=== PATIENT | female | born 1980 | race Caucasian/White ===

== ENCOUNTER 2017-05-24 14:35 | Inpatient (IN) | payer OTHER ==
[~2017-05-24] VITALS: Ht 162.6 cm; Wt 50.9 kg
[2017-05-24] MEDS ORDERED: SODIUM CHLORIDE 0.9% 1000ML 1,000 ML IV STA ×2 (15:21→17:57)
[2017-05-24] MEDS ORDERED: KETOROLAC TROMETHAMINE 30 MG/ML VIAL IV STA (15:21)
[2017-05-24] MEDS ORDERED: INSDGI SC (15:30)
[2017-05-24] MEDS ORDERED: IBUP-1050 PO (15:30)
[2017-05-24] MEDS ORDERED: ATOR10TA88 PO (15:30)
[2017-05-24] MEDS ORDERED: NVLG SQ (15:30)
[2017-05-24] MEDS ORDERED: ETON1IMP2 IM (15:30)
[2017-05-24] MEDS ORDERED: NYSS/ PO (15:32)
[2017-05-24] MEDS ORDERED: ETOD400T PO (15:32)
--- NOTE | 2017-05-24 15:32 | EMERGENCY ROOM VISIT NOTE ---
History Report prepared by Jem: Jeronimo Champagne Under the Supervision of: Dr. Redd Carrizales M.D. First contact with patient: 15:09 Chief Complaint: ABDOMINAL PAIN Stated Complaint: ABD PAIN,FEVER, BLISTERS IN MOUTH Nursing Triage Summary: Abdonimal pain for about three weeks. It's getting worse. Went to [facility] in [place] yesterday and referred here. Has not been seeing a PCP regarding this issue. History of Present Illness The patient is a 36 year old female who presents to the Emergency Room with complaints of a worsening illness that started 3 weeks ago. She says that she has been having left-sided abdominal pain that wraps around into her back that has been worsening, in addition to fevers and chills. She says that it is hard to take a deep breath due to the pain. The patient states that she has been taking Ibuprofen "around the clock". She notes that her highest temperature has been 102, and she has not seen a doctor for her symptoms, except for going to [facility] yesterday. The patient says that she did not go to see a doctor before that because her symptoms would at times go away for 2 to 3 days at a time, and she thought it may have been an illness that was "going around". At [facility], she was told to come here to be evaluated for further testing. She was also given a medication, which she has taken last night and this morning. The patient was told to not take Ibuprofen with the medication, but her pain was so bad that she continued to take Ibuprofen, the last dose being around 5 hours ago. The patient denies any nausea, chest pain, shortness of breath, urinary symptoms, or vaginal discharge or vaginal odor. She adds that she is a type 1 diabetic, and has not been following her blood sugars as she should. Her A1C was noted to be high last time she checked. She denies any chance of . She smokes a half a pack of cigarettes per day. Source of History: patient Onset: 3 weeks ago Position: other (global - illness) Timing: worsening Associated Symptoms: + fevers, + chills, + abdominal pain (left sided - wraps into back), No chest pain, No SOB, No nausea, No urinary symptoms Note: Associated symptoms: Denies vaginal discharge or vaginal odor. Review of Systems See HPI for pertinent positives and negatives. A total of ten systems were reviewed and were otherwise negative. Past Medical & Surgical Medical Problems: (1) MRSA (methicillin resistant staph aureus) culture positive (2) Type 1 diabetes Family History Diabetes mellitus Social History Smoking Status: Current Every Day Smoker Marital Status: single Housing Status: lives with family Occupation Status: employed Current/Historical Medications Scheduled Atorvastatin (Lipitor), 10 MG PO DAILY Etodolac (Etodolac), 400 MG PO BID Etonogestrel (Nexplanon), 68 MG IM [id number] Insulin Aspart (Novolog), 8-15 UNITS SQ TID Insulin Glargine (Lantus), 20-22 UNITS SC QPM Nystatin (Nystatin Suspension), 1 DOSE PO QID Scheduled PRN Ibuprofen (Advil), 400-600 MG PO Q6H PRN for Pain Allergies Coded Allergies: No Known Allergies (Unverified , 05/24/17) Physical Exam Vital Signs Date Time Temp Pulse Resp B/P (MAP) Pulse Ox O2 Delivery O2 Flow Rate FiO2 05/24/17 20:18 Room Air 05/24/17 14:41 36.8 108 16 119/77 98 Room Air Physical Exam GENERAL: Awake, alert, well-appearing, in no distress HENT: Normocephalic, atraumatic. Oropharynx unremarkable. Dry mucous membranes. EYES: Normal conjunctiva. Sclera non-icteric. NECK: Supple. No nuchal rigidity. FROM. No JVD. RESPIRATORY: Clear to auscultation. CARDIAC: Regular rate, normal rhythm. Extremities warm and well perfused. Pulses equal. ABDOMEN: Soft, non-distended. Moderate Left flank tenderness to palpation. Mild Upper abdominal tenderness to palpation. No peritoneal signs. No rebound or guarding. No masses. RECTAL: Deferred. MUSCULOSKELETAL: Chest examination reveals no tenderness. The back is symmetrical on inspection without obvious abnormality. There is no CVA tenderness to palpation. No joint edema. LOWER EXTREMITIES: Calves are equal size bilaterally and non-tender. No edema. No discoloration. NEURO: Normal sensorium. No sensory or motor deficits noted. SKIN: No rash or jaundice noted. Medical Decision & Procedures ER Provider Diagnostic Interpretation: CT: Radiology results as stated below per my review and radiologist interpretation CT SCAN OF THE ABDOMEN AND PELVIS WITH IV CONTRAST CLINICAL HISTORY: Epigastric abdominal pain. Left flank pain. Fever. Reported history of poorly controlled diabetes. COMPARISON STUDY: No priors. TECHNIQUE: Following the IV administration of 92 cc of Optiray 320, CT scan of the abdomen and pelvis is performed from the lung bases to the proximal femora. Images are reviewed in the axial, sagittal, and coronal planes. IV contrast was administered without complication. Automated dose control exposure was utilized. A dose lowering technique was utilized adhering to the principles of ALARA. CT DOSE: 251.05 mGy.cm FINDINGS: Lung bases: The heart is normal in size and without pericardial effusion. There are trace pleural effusions, left larger than right with bibasilar atelectasis. Liver: The contrast-enhanced liver is normal in size, contour, and attenuation. There is no intrahepatic biliary ductal dilatation. The hepatic veins and portal veins are patent. Gallbladder: Unremarkable. Spleen: Normal in size and attenuation. Pancreas: Unremarkable. Adrenal glands: Unremarkable. Kidneys and retroperitoneum: The contrast enhanced kidneys are normal in size and without hydronephrosis. The right kidney enhances homogeneously. There is heterogeneously diminished perfusion identified in the lower pole of left kidney. The remainder of the left kidney enhances homogeneously. There is extensive phlegmonous change identified in the left retroperitoneal space around the lower pole of the kidney, and between the left psoas muscle, the spleen, and the splenic flexure of the colon. There are small foci of indeterminant gas in the retroperitoneal space which may be extraluminal. There is a small crescentic fluid collection seen posterior to the lower pole the left kidney on image #124 which measures approximately 2.5 x 1 x 2.5 cm. The appearance is concerning for a small abscess. It is unclear if this originates from the splenic flexure of the colon or the left kidney. There is no convincing evidence of intramuscular abscess in the psoas. Abdominal vasculature: The abdominal aorta is normal in course and caliber. Bowel: There is moderate colonic fecal retention. No bowel obstruction is seen. As noted above, there is significant inflammatory change in the left retroperitoneal space which involves the splenic flecture. The splenic flexure appears thick-walled. See above for detailed discussion. The appendix is well-visualized and normal. Peritoneum: There is mild diffuse mesenteric edema. No intraperitoneal free air is seen in there is no abdominal ascites. Lymphadenopathy: None. Pelvic viscera: The bladder, uterus, and adnexa are normal as visualized. Skeletal structures: No lytic or blastic lesions are seen. IMPRESSION: 1. There is a large inflammatory process with significant inflammation/phlegmon identified in the left retroperitoneal space as detailed above which involves predominantly the lower pole of the left the kidney and the splenic flexure of the colon. The origin/etiology of this is unclear, and primary renal infection versus a colonic process such as perforated diverticulitis are the top differential considerations. Clinical correlation will be required and surgical consultation is advised. 2. There are foci of gas within the left retroperitoneal space which may be extraluminal. A small crescentic fluid collection is seen posterior to the lower pole of the left kidney and measures up to 2.5 cm. This likely represents a small abscess. 3. There is nonspecific mesenteric edema. No intraperitoneal free air is identified and there is no intraperitoneal fluid collection seen. 4. Small pleural effusions, left larger than right with associated atelectasis. Findings were discussed with Dr. Carrizales in the emergency department at the time of interpretation. Electronically signed by: Margarito Jacobs M.D. 05/24/2017 5:17 PM Dictated Date/Time: 05/24/2017 4:59 PM Laboratory Results 05/24/17 15:40 Red Blood Count 4.21, Mean Corpuscular Volume 82.9, Mean Corpuscular Hemoglobin 28.0, Mean Corpuscular Hemoglobin Concent 33.8, Mean Platelet Volume 9.6, Neutrophils (%) (Auto) 63.4, Lymphocytes (%) (Auto) 27.5, Monocytes (%) (Auto) 3.8, Eosinophils (%) (Auto) 4.7, Basophils (%) (Auto) 0.2, Neutrophils # (Auto) 6.15, Lymphocytes # (Auto) 2.67, Monocytes # (Auto) 0.37, Eosinophils # (Auto) 0.46, Basophils # (Auto) 0.02 05/24/17 15:40 Test 05/24/17 15:40 05/24/17 17:46 05/24/17 19:22 White Blood Count 9.71 K/uL (4.8-10.8) Red Blood Count 4.21 M/uL (4.2-5.4) Hemoglobin 11.8 g/dL (12.0-16.0) Hematocrit 34.9 % (37-47) Mean Corpuscular Volume 82.9 fL (80-100) Mean Corpuscular Hemoglobin 28.0 pg (25-34) Mean Corpuscular Hemoglobin Concent 33.8 g/dl (32-36) Platelet Count 672 K/uL (130-400) Mean Platelet Volume 9.6 fL (7.4-10.4) Neutrophils (%) (Auto) 63.4 % Lymphocytes (%) (Auto) 27.5 % Monocytes (%) (Auto) 3.8 % Eosinophils (%) (Auto) 4.7 % Basophils (%) (Auto) 0.2 % Neutrophils # (Auto) 6.15 K/uL (1.4-6.5) Lymphocytes # (Auto) 2.67 K/uL (1.2-3.4) Monocytes # (Auto) 0.37 K/uL (0.11-0.59) Eosinophils # (Auto) 0.46 K/uL (0-0.5) Basophils # (Auto) 0.02 K/uL (0-0.2) RDW Standard Deviation 44.9 fL (36.4-46.3) RDW Coefficient of Variation 14.8 % (11.5-14.5) Immature Granulocyte % (Auto) 0.4 % Immature Granulocyte # (Auto) 0.04 K/uL (0.00-0.02) Urine Color YELLOW Urine Appearance CLEAR (CLEAR) Urine pH 6.5 (4.5-7.5) Urine Specific [place] 1.038 (1.000-1.030) Urine Protein NEG (NEG) Urine Glucose (UA) 3+ (NEG) Urine Ketones NEG (NEG) Urine Occult Blood TRACE (NEG) Urine Nitrite NEG (NEG) Urine Bilirubin NEG (NEG) Urine Urobilinogen NEG (NEG) Urine Leukocyte Esterase NEG (NEG) Urine WBC (Auto) 5-10 /hpf (0-5) Urine RBC (Auto) 0-4 /hpf (0-4) Urine Hyaline Casts (Auto) 1-5 /lpf (0-5) Urine Epithelial Cells (Auto) >30 /lpf (0-5) Urine Bacteria (Auto) NEG (NEG) Urine Test NEG (NEG) Anion Gap 7.0 mmol/L (3-11) Est Creatinine Clear Calc Drug Dose 73.4 ml/min Estimated GFR () 101.4 Estimated GFR (Non- 87.5 BUN/Creatinine Ratio 13.6 (10-20) Calcium Level 9.4 mg/dl (8.5-10.1) Total Bilirubin 0.2 mg/dl (0.2-1) Direct Bilirubin 0.1 mg/dl (0-0.2) Aspartate Amino Transf (AST/SGOT) 14 U/L (15-37) Alanine Aminotransferase (ALT/SGPT) 16 U/L (12-78) Alkaline Phosphatase 247 U/L (45-117) Total Protein 8.8 gm/dl (6.4-8.2) Albumin 2.4 gm/dl (3.4-5.0) Lipase 53 U/L (73-393) Beta-Hydroxybutyric Acid 0.86 mg/dL (0.2-2.81) Lactic Acid Level 2.0 mmol/L (0.4-2.0) Bedside Glucose 216 mg/dl (70-90) Laboratory results reviewed by me Medications Administered Medications (Trade) Dose Ordered Sig/Jimy Route Start Time Stop Time Status Last Admin Dose Admin Sodium Chloride 1,000 ml @ 999 mls/hr Q1H1M STAT IV 05/24/17 15:21 05/24/17 16:21 DC 05/24/17 15:56 999 MLS/HR Ketorolac Tromethamine (Toradol Inj) 30 mg NOW STAT IV 05/24/17 15:21 05/24/17 15:24 DC 05/24/17 15:56 30 MG Insulin Aspart (novoLOG PER UNIT) 10 units NOW ONCE SC 05/24/17 17:30 05/24/17 17:31 DC 05/24/17 17:47 10 UNITS Piperacillin Sod/ Tazobactam Sod (Zosyn Iv) 3.375 gm NOW STAT IV 05/24/17 17:15 05/24/17 17:17 DC 05/24/17 17:15 3.375 GM Vancomycin HCl 270 ml @ 125 mls/hr Q2H10M STAT IV 05/24/17 17:23 05/24/17 19:32 DC 05/24/17 17:48 125 MLS/HR Sodium Chloride 1,000 ml @ 999 mls/hr Q1H1M STAT IV 05/24/17 17:57 05/24/17 18:57 DC 05/24/17 17:57 999 MLS/HR Nicotine (Nicoderm Cq 21MG Patch) 1 patch STK-MED ONCE .ROUTE 05/24/17 19:16 05/24/17 19:17 DC 05/24/17 19:18 1 PATCH ED Course 1520: The patient was evaluated in room B8. A complete history and physical exam was performed. 152: Ordered Toradol Inj 30 mg IV, NSS 1000 ml @ 999 mls/hr IV. 1715: Ordered Zosyn IV 3.375 gm IV. 1727: Upon reexamination, the patient was resting comfortably. I discussed the test results and treatment plan with her. The patient will be evaluated for further management. 173: Ordered Novolog PER UNIT 10 units SC. 193: I discussed the patient with Dr. Le - [facility] warp picker - he will evaluate the patient for further treatment. 2100: Ordered Remove Nicoderm Patch 1 ea N/A. 0900: Ordered Nicoderm Cq 21MG Patch 1 patch TD. Medical Decision I reviewed the patient's past medical history, medications, and the nursing notes as described above. Differential diagnoses: renal stone, pyelonephritis, diverticulitis, pancreatitis, cholecystitis. Medication Reconciliation: I attest that I have personally reviewed the patient' s current medication list. No medications on list. Blood pressure screening: Patient was found to have normal blood pressure on screening and does not require follow-up. Patient is a 36-year-old woman with a past medical history of MRSA skin infections since emergency Department with worsening left flank pain that has been ongoing for the past 3 weeks with feverishness and chills per history of present illness. On exam patient appears uncomfortable but in no acute distress. She is afebrile with stable vital signs. Has dry mucous membranes and several oral ulcers. His abdominal exam is notable for left flank tenderness to palpation as well as upper abdominal tenderness to palpation. Otherwise no lower abdominal tenderness elicited. No peritoneal signs. During the patient's prolonged symptoms in the setting of left flank pain, renal stone within the differential, thus CT ordered. Labs show a WBC within normal limits. Otherwise blood glucose elevated to the 400s, however no anion gap that would make me concerned for DKA in this type I diabetic. Thus given subcu insulin for correction of IV fluid hydration with improvement in her glucose to the 200s. Alkaline phosphatase elevated to the 200s but without any priors. LFTs otherwise unremarkable. CT scan demonstrating fluid collection adjacent to the left kidney as well as splenic flexure, I discussed with radiology who feels it is highly suspicious for abscess although the source of abscess is unclear at this time with possibilities including diverticular versus renal. In this setting lactate and blood cultures ordered patient was given broad- spectrum antibiotics. Findings were discussed with the patient and the plan for admission however initially the patient was concerned because she had not made arrangements to leaf size picker her children. Thus plan was to demise the patient medically with IV antibiotics and hydration. However, in the interim, patient was able to make arrangements and agreed to stay for admission. Patient admitted to medicine for further management possible surgical and/or urological consultation. Consults Time Called: 1929 Consulting Physician: Dr. Mimi BAILEY warp picker Returned Call: [phone] I discussed the patient with Dr. Mimi BAILEY warp picker - he will evaluate the patient for further treatment. Impression Primary Impression: Intra-abdominal abscess Scribe Attestation The scribe's documentation has been prepared under my direction and personally reviewed by me in its entirety. I confirm that the note above accurately reflects all work, treatment, procedures, and medical decision making performed by me. Departure Information Dispostion Being Evaluated By Hospitalist Referrals No Doctor, Assigned (PCP) Patient Instructions [facility]
[2017-05-24] MEDS ORDERED: OPTIRAY 320 IV PRN (15:45)
[2017-05-24 16:01] LABS: BASO % 0.2 %; BASO ABS # 0.02 K/uL (0-0.2); COMPLETE YES; EOS % 4.7 %; HEMATOCRIT 34.9 % (37-47); IG% 0.4 %; LYMPH % 27.5 %; LYMPH ABS # 2.67 K/uL (1.2-3.4); MEAN CELL VOLUME 82.9 fL (80-100); MEAN CORPUSCULAR HGB CONC 33.8 g/dl (32-36); MEAN PLATELET VOLUME 9.6 fL (7.4-10.4); MONO % 3.8 %; NEUT % 63.4 %; PLATELET COUNT 672 K/uL (130-400); RED BLOOD COUNT 4.21 M/uL (4.2-5.4); WHITE BLOOD COUNT 9.71 K/uL (4.8-10.8)
[2017-05-24 16:09] LABS: URINE APPEARANCE CLEAR (CLEAR); URINE BILIRUBIN NEG (NEG); URINE COLOR YELLOW; URINE EPITHELIAL CELL AUTO >30 /lpf (0-5); URINE NITRITE NEG (NEG); URINE PH 6.5 (4.5-7.5); URINE SPECIFIC GRAVITY 1.038 (1.000-1.030); UROBILINOGEN NEG (NEG); ZZUR CULT IF INDIC CLEAN CATCH NO
[2017-05-24 16:12] LABS: MANUAL MICROSCOPIC REQUIRED? NO; REVIEW REQ? NO
[2017-05-24 16:25] LABS: BUN/CREATININE RATIO 13.6 (10-20); CALCIUM 9.4 mg/dl (8.5-10.1); CREATININE 0.86 mg/dl (0.60-1.20); POTASSIUM 4.3 mmol/L (3.5-5.1)
[2017-05-24 16:37] LABS: BETA-HYDROXYBUTYRATE 0.86 mg/dL (0.2-2.81)
[2017-05-24] MEDS ORDERED: PIPERACILLIN/TAZOBACTAM 3.375 GM/100ML D5W IV STA (17:15)
[2017-05-24] MEDS ORDERED: VANCOMYCIN INJ 2,000 MG in SODIUM CHLORIDE 0.9% 500ML 500 ML IV STA (17:15)
--- NOTE | 2017-05-24 17:18 | DIAGNOSTIC IMAGING REPORT ---
ADDENDUM ADDENDUM: In addition to the above findings the spleen is enlarged, measuring 16.7 cm in length. This is likely on a reactive basis. All additional findings are unchanged. Electronically signed by: Margarito Jacobs M.D. 05/24/2017 5:49 PM Dictated Date/Time: 05/24/2017 5:[address] SCAN OF THE ABDOMEN AND PELVIS WITH IV CONTRAST CLINICAL HISTORY: Epigastric abdominal pain. Left flank pain. Fever. Reported history of poorly controlled diabetes. COMPARISON STUDY: No priors. TECHNIQUE: Following the IV administration of 92 cc of Optiray 320, CT scan of the abdomen and pelvis is performed from the lung bases to the proximal femora. Images are reviewed in the axial, sagittal, and coronal planes. IV contrast was administered without complication. Automated dose control exposure was utilized. A dose lowering technique was utilized adhering to the principles of ALARA. CT DOSE: 251.05 mGy.cm FINDINGS: Lung bases: The heart is normal in size and without pericardial effusion. There are trace pleural effusions, left larger than right with bibasilar atelectasis. Liver: The contrast-enhanced liver is normal in size, contour, and attenuation. There is no intrahepatic biliary ductal dilatation. The hepatic veins and portal veins are patent. Gallbladder: Unremarkable. Spleen: Normal in size and attenuation. Pancreas: Unremarkable. Adrenal glands: Unremarkable. Kidneys and retroperitoneum: The contrast enhanced kidneys are normal in size and without hydronephrosis. The right kidney enhances homogeneously. There is heterogeneously diminished perfusion identified in the lower pole of left kidney. The remainder of the left kidney enhances homogeneously. There is extensive phlegmonous change identified in the left retroperitoneal space around the lower pole of the kidney, and between the left psoas muscle, the spleen, and the splenic flexure of the colon. There are small foci of indeterminant gas in the retroperitoneal space which may be extraluminal. There is a small crescentic fluid collection seen posterior to the lower pole the left kidney on image #124 which measures approximately 2.5 x 1 x 2.5 cm. The appearance is concerning for a small abscess. It is unclear if this originates from the splenic flexure of the colon or the left kidney. There is no convincing evidence of intramuscular abscess in the psoas. Abdominal vasculature: The abdominal aorta is normal in course and caliber. Bowel: There is moderate colonic fecal retention. No bowel obstruction is seen. As noted above, there is significant inflammatory change in the left retroperitoneal space which involves the splenic flecture. The splenic flexure appears thick-walled. See above for detailed discussion. The appendix is well-visualized and normal. Peritoneum: There is mild diffuse mesenteric edema. No intraperitoneal free air is seen in there is no abdominal ascites. Lymphadenopathy: None. Pelvic viscera: The bladder, uterus, and adnexa are normal as visualized. Skeletal structures: No lytic or blastic lesions are seen. IMPRESSION: 1. There is a large inflammatory process with significant inflammation/phlegmon identified in the left retroperitoneal space as detailed above which involves predominantly the lower pole of the left the kidney and the splenic flexure of the colon. The origin/etiology of this is unclear, and primary renal infection versus a colonic process such as perforated diverticulitis are the top differential considerations. Clinical correlation will be required and surgical consultation is advised. 2. There are foci of gas within the left retroperitoneal space which may be extraluminal. A small crescentic fluid collection is seen posterior to the lower pole of the left kidney and measures up to 2.5 cm. This likely represents a small abscess. 3. There is nonspecific mesenteric edema. No intraperitoneal free air is identified and there is no intraperitoneal fluid collection seen. 4. Small pleural effusions, left larger than right with associated atelectasis. Findings were discussed with Dr. Carrizales in the emergency department at the time of interpretation. Electronically signed by: Margarito Jacobs M.D. 05/24/2017 5:17 PM Dictated Date/Time: 05/24/2017 4:59 PM
[2017-05-24] MEDS ORDERED: VANCOMYCIN 1GM/270ML NSS 270 ML IV STA (17:23)
[2017-05-24] MEDS ORDERED: NovoLOG PER UNIT CHARGE SC ONE (17:30)
[2017-05-24] MEDS ORDERED: ALUMINUM/MAGNESIUM/SIMETH (MAALOX MAX) 30 ML UDC PO PRN (19:15)
[2017-05-24] MEDS ORDERED: POLYETHYLENE (MIRALAX) 17 GM PACK PO PRN (19:15)
[2017-05-24] MEDS ORDERED: ACETAMINOPHEN 325 MG TAB PO PRN (19:15)
[2017-05-24] MEDS ORDERED: MAGNESIUM HYDROXIDE SUSP 30 ML UDC PO PRN (19:15)
[2017-05-24] MEDS ORDERED: ONDANSETRON INJ 2 MG/ML 2 ML VIAL IV PRN (19:15)
[2017-05-24] MEDS ORDERED: NICOTINE 21 MG/24 HR TDSY ONE (19:16)
--- NOTE | 2017-05-24 19:49 | History and Physical ---
History & Physical Date & Time of Service: May 24, 2017 at 19:36 Chief Complaint: Abd Pain,Fever, Blisters In Mouth Primary Care Physician: No Doctor, Assigned History of Present Illness Source: patient, clinic records, hospital records Patient is a pleasant 36 y/o female, with PMHx of T1DM, dyslipidemia and tobacco abuse, who presented to the ED because of left lateral abdominal pain radiating to L flank region x3-4 weeks. +fever/chills. She has been taking Ibuprofen for her pain/fever, which does seem to help. She was seen by [facility] yesterday and was advised to come to ED for further evaluation. She was prescribed a medication, but cannot what the medication was. She was advised not to take Ibuprofen with the medication, but her pain was uncontrolled w/out it, so she continued taking Ibuprofen. She did not seek medical attention earlier because pain would come and go and was controlled with Ibuprofen. She has been eating and drinking OK. Patient denies any sweats, lightheadedness, dizziness, vision changes, CP, palpitations, edema, SOB, wheezing, cough, nausea, vomiting, diarrhea, urinary symptoms, melena, numbness/ tingling, weakness, muscle/joint pain, anxiety/depression, active bleeding, or new skin discoloration/changes. Patient's BSG was 412 in ED. When further questioning patient, she states, "I am a bad diabetic, that number is not uncommon for me." Past Medical/Surgical History Medical Problems: T1DM dyslipidemia tobacco abuse Surgical History: tonsillectomy D&C Family History Diabetes mellitus Social History Smoking Status: Current Every Day Smoker Marital Status: single Housing status: lives with family Occupational Status: employed Allergies Coded Allergies: No Known Allergies (Unverified , 05/24/17) Home Medications Scheduled Atorvastatin (Lipitor), 10 MG PO DAILY Etodolac (Etodolac), 400 MG PO BID Etonogestrel (Nexplanon), 68 MG IM [id number] Insulin Aspart (Novolog), 8-15 UNITS SQ TID Insulin Glargine (Lantus), 20-22 UNITS SC QPM Nystatin (Nystatin Suspension), 1 DOSE PO QID Scheduled PRN Ibuprofen (Advil), 400-600 MG PO Q6H PRN for Pain Physical Exam Vital Signs Date Time Temp Pulse Resp B/P (MAP) Pulse Ox O2 Delivery O2 Flow Rate FiO2 05/24/17 14:41 36.8 108 16 119/77 98 Room Air General Appearance: no apparent distress, + thin Head: normocephalic, atraumatic Eyes: normal inspection, PERRL ENT: hearing grossly normal Neck: no adenopathy Respiratory/Chest: lungs clear, no respiratory distress, no accessory muscle use Cardiovascular: regular rate, rhythm Abdomen/GI: normal bowel sounds, soft, + tenderness (ttp of LUQ) Back: + left CVA tenderness Extremities/Musculoskelatal: no calf tenderness, no pedal edema Neurologic/Psych: alert, oriented x 3, + pertinent finding (tearful/anxious) Skin: normal color, warm/dry, no rash Diagnostics Laboratory Results Results Past 24 Hours Test 05/24/17 15:40 05/24/17 17:46 Range/Units White Blood Count 9.71 4.8-10.8 K/uL Red Blood Count 4.21 4.2-5.4 M/uL Hemoglobin 11.8 12.0-16.0 g/dL Hematocrit 34.9 37-47 % Mean Corpuscular Volume 82.9 80-100 fL Mean Corpuscular Hemoglobin 28.0 25-34 pg Mean Corpuscular Hemoglobin Concent 33.8 32-36 g/dl Platelet Count 672 130-400 K/uL Mean Platelet Volume 9.6 7.4-10.4 fL Neutrophils (%) (Auto) 63.4 % Lymphocytes (%) (Auto) 27.5 % Monocytes (%) (Auto) 3.8 % Eosinophils (%) (Auto) 4.7 % Basophils (%) (Auto) 0.2 % Neutrophils # (Auto) 6.15 1.4-6.5 K/uL Lymphocytes # (Auto) 2.67 1.2-3.4 K/uL Monocytes # (Auto) 0.37 0.11-0.59 K/uL Eosinophils # (Auto) 0.46 0-0.5 K/uL Basophils # (Auto) 0.02 0-0.2 K/uL RDW Standard Deviation 44.9 36.4-46.3 fL RDW Coefficient of Variation 14.8 11.5-14.5 % Immature Granulocyte % (Auto) 0.4 % Immature Granulocyte # (Auto) 0.04 0.00-0.02 K/uL Urine Color YELLOW Urine Appearance CLEAR CLEAR Urine pH 6.5 4.5-7.5 Urine Specific [place] 1.038 1.000-1.030 Urine Protein NEG NEG Urine Glucose (UA) 3+ NEG Urine Ketones NEG NEG Urine Occult Blood TRACE NEG Urine Nitrite NEG NEG Urine Bilirubin NEG NEG Urine Urobilinogen NEG NEG Urine Leukocyte Esterase NEG NEG Urine WBC (Auto) 5-10 0-5 /hpf Urine RBC (Auto) 0-4 0-4 /hpf Urine Hyaline Casts (Auto) 1-5 0-5 /lpf Urine Epithelial Cells (Auto) >30 0-5 /lpf Urine Bacteria (Auto) NEG NEG Urine Test NEG NEG Sodium Level 133 136-145 mmol/L Potassium Level 4.3 3.5-5.1 mmol/L Chloride Level 98 98-107 mmol/L Carbon Dioxide Level 28 21-32 mmol/L Anion Gap 7.0 3-11 mmol/L Blood Urea Nitrogen 12 7-18 mg/dl Creatinine 0.86 0.60-1.20 mg/dl Est Creatinine Clear Calc Drug Dose 73.4 ml/min Estimated GFR () 101.4 Estimated GFR (Non- 87.5 BUN/Creatinine Ratio 13.6 10-20 Random Glucose 412 70-99 mg/dl Calcium Level 9.4 8.5-10.1 mg/dl Total Bilirubin 0.2 0.2-1 mg/dl Direct Bilirubin 0.1 0-0.2 mg/dl Aspartate Amino Transf (AST/SGOT) 14 15-37 U/L Alanine Aminotransferase (ALT/SGPT) 16 12-78 U/L Alkaline Phosphatase 247 45-117 U/L Total Protein 8.8 6.4-8.2 gm/dl Albumin 2.4 3.4-5.0 gm/dl Lipase 53 73-393 U/L Beta-Hydroxybutyric Acid 0.86 0.2-2.81 mg/dL Lactic Acid Level 2.0 0.4-2.0 mmol/L Microbiology Results 05/24/17 Blood Culture, Received Pending 05/24/17 Blood Culture, Received Pending Diagnostic Radiology ADDENDUM ADDENDUM: In addition to the above findings the spleen is enlarged, measuring 16.7 cm in length. This is likely on a reactive basis. All additional findings are unchanged. Electronically signed by: Margarito Jacobs M.D. 05/24/2017 5:49 PM Dictated Date/Time: 05/24/2017 5:[address] SCAN OF THE ABDOMEN AND PELVIS WITH IV CONTRAST CLINICAL HISTORY: Epigastric abdominal pain. Left flank pain. Fever. Reported history of poorly controlled diabetes. COMPARISON STUDY: No priors. TECHNIQUE: Following the IV administration of 92 cc of Optiray 320, CT scan of the abdomen and pelvis is performed from the lung bases to the proximal femora. Images are reviewed in the axial, sagittal, and coronal planes. IV contrast was administered without complication. Automated dose control exposure was utilized. A dose lowering technique was utilized adhering to the principles of ALARA. CT DOSE: 251.05 mGy.cm FINDINGS: Lung bases: The heart is normal in size and without pericardial effusion. There are trace pleural effusions, left larger than right with bibasilar atelectasis. Liver: The contrast-enhanced liver is normal in size, contour, and attenuation. There is no intrahepatic biliary ductal dilatation. The hepatic veins and portal veins are patent. Gallbladder: Unremarkable. Spleen: Normal in size and attenuation. Pancreas: Unremarkable. Adrenal glands: Unremarkable. Kidneys and retroperitoneum: The contrast enhanced kidneys are normal in size and without hydronephrosis. The right kidney enhances homogeneously. There is heterogeneously diminished perfusion identified in the lower pole of left kidney. The remainder of the left kidney enhances homogeneously. There is extensive phlegmonous change identified in the left retroperitoneal space around the lower pole of the kidney, and between the left psoas muscle, the spleen, and the splenic flexure of the colon. There are small foci of indeterminant gas in the retroperitoneal space which may be extraluminal. There is a small crescentic fluid collection seen posterior to the lower pole the left kidney on image #124 which measures approximately 2.5 x 1 x 2.5 cm. The appearance is concerning for a small abscess. It is unclear if this originates from the splenic flexure of the colon or the left kidney. There is no convincing evidence of intramuscular abscess in the psoas. Abdominal vasculature: The abdominal aorta is normal in course and caliber. Bowel: There is moderate colonic fecal retention. No bowel obstruction is seen. As noted above, there is significant inflammatory change in the left retroperitoneal space which involves the splenic flecture. The splenic flexure appears thick-walled. See above for detailed discussion. The appendix is well-visualized and normal. Peritoneum: There is mild diffuse mesenteric edema. No intraperitoneal free air is seen in there is no abdominal ascites. Lymphadenopathy: None. Pelvic viscera: The bladder, uterus, and adnexa are normal as visualized. Skeletal structures: No lytic or blastic lesions are seen. IMPRESSION: 1. There is a large inflammatory process with significant inflammation/phlegmon identified in the left retroperitoneal space as detailed above which involves predominantly the lower pole of the left the kidney and the splenic flexure of the colon. The origin/etiology of this is unclear, and primary renal infection versus a colonic process such as perforated diverticulitis are the top differential considerations. Clinical correlation will be required and surgical consultation is advised. 2. There are foci of gas within the left retroperitoneal space which may be extraluminal. A small crescentic fluid collection is seen posterior to the lower pole of the left kidney and measures up to 2.5 cm. This likely represents a small abscess. 3. There is nonspecific mesenteric edema. No intraperitoneal free air is identified and there is no intraperitoneal fluid collection seen. 4. Small pleural effusions, left larger than right with associated atelectasis. Findings were discussed with Dr. Carrizales in the emergency department at the time of interpretation. Electronically signed by: Margarito Jacobs M.D. 05/24/2017 5:17 PM Dictated Date/Time: 05/24/2017 4:59 PM The status of this report is Signed. Draft = Not yet reviewed or approved by Radiologist. Signed = Reviewed and approved by Radiologist. <AttendingPhy></AttendingPhy> <FamilyPhy>No Doctor, Assigned</FamilyPhy> < PrimaryPhy>No Doctor, Assigned</PrimaryPhy> <UnitNumber>[id number]</UnitNumber> <VisitNumber>[id number] Impression Assessment and Plan Patient is a pleasant 36 y/o female, with PMHx of T1DM, dyslipidemia and tobacco abuse, who presented to the ED because of left lateral abdominal pain radiating to L flank region x3-4 weeks. Abdominal abscess, ?secondary to colitis vs renal cause: - Admit to med/surg - IV NSS @ 125 ml/hr - IV Vancomycin and Zosyn in ED; continue IV Zosyn at admission - IV Toradol PRN for pain management - Follow CBC and PRP - BCx pending - Consult General Surgery for possible abscess drainage, appreciate recommendations T1DM- UNCONTROLLED: - Hold home regimen of Lantus 20-22 U daily and Novolog 8-15 U TID - Lantus 30 U HS, BSG ACHS and sliding insulin scale - Check HgbA1c - Diabetic counselling Tobacco abuse- smokes 1/2 ppd: - Nicotine patch - Smoking cessation counselling Dyslipidemia: Lipitor 10 mg daily DVT prophylaxis: TEDs/SCDs, ambulation Code Status: LEVEL I, FULL Dispo: From home, lives w/ family- no discharge needs anticipated i personally examined pt and verified all cotton points w Darnell Weinstein PAC abdominal pain as above ongoing for weeks. no time where she was toxically ill just continued to worsen. notes only DM1 for about a year. doesn't take care of herself well - admits to this, also notes that she only has a loose understanding of why to care at best --> "it damages all your organs because they have to work extra to get all the sugar out of there" vitals noted fatigued and mildly uncomfortable nontoxic appearing no pallor or icterus labs and diagnostics reviewed a/p retroperitoneal abscess - likely from colitis source (?nonspecific colitis allowed to worsen due to immunosuppression from markedly uncontrolled DM1) vs less likely renal source (would suspect intrarenal abscess and/or much sicker presentation) -- at some point should have colo once this current situation has improved. d/w pt hopefully can resolve w IV abx alone but may need drainage. if drainage needed, hopefully can be done by IR rather than needing surgery - for now start w IV abx and surgical evaluation, serial exams, possibly serial CT. if worsens --> drainage; if fails to improve --> drainage. blood cultures sent. doubt relates to MRSA skin infections - far more likely gram neg/ anaerobes DM1 - uncontrolled - extensive discussions - explained "basics" ("high sugars clog arteries") and basics of self care and dynamic carb-based insulins. since she doesn't always take her insulin reliably at home, actual adequate dosing really difficult to discern - starting w dosing as above working off the assumption that her home dosing was not enough, but probably not markedly low since she doesn't always take it. check A1c, follow sugars. she notes that she generally feels "low" even at 200 - discussed that her body has maladapted but that over time she'll get to a better "set point' for feeling low as her body adapts to euglycemia. discussed statin likely for plaque stabilization/ CAD and CVD risk reduction given DM1/smoker otherwise as above Level of Care Med/Surg Resuscitation Status FULL RESUSCITATION VTE Prophylaxis VTE Risk Assessment Done? Y/N: Yes Risk Level: Low Given or contraindicated: T.E.D. Stockings, SCD's
[2017-05-24 20:18] VITALS: BMI 19.3
[2017-05-24] MEDS ORDERED: DEXTROSE 50% 50 ML SYR IV PRN (20:30)
[2017-05-24] MEDS ORDERED: GLUCOSE 40% GEL 15 GM TUBE PO PRN (20:30)
[2017-05-24] MEDS ORDERED: PIPERACILL/TAZOBAC CONSULT ACTIVE PRN (20:30)
[2017-05-24] MEDS ORDERED: GLUCOSE 10 TABS/TUBE PO PRN (20:30)
[2017-05-24] MEDS ORDERED: GLUCAGON FOR INJ 1 MG VIAL SQ PRN (20:30)
[2017-05-24 20:45] VITALS: BP 103/67; PULSE 86; TEMP 36.7; O2SAT 99
[2017-05-24] MEDS: SODIUM CHLORIDE 0.9% 1000ML 1,000 ML IV SCH (21:35)
[2017-05-24] MEDS: PIPERACILL/TAZOBAC IV 3.375 GM in DEXTROSE 5% 100ML 100 ML IV SCH (21:36)
[2017-05-24] MEDS: INSULIN ASPART 100 UNITS/ML 3 ML PEN SC SCH (22:03)
[2017-05-24] MEDS: INSULIN GLARGINE SOLOSTAR 100 UNITS/ML 3 ML PEN SC SCH (22:04)
[2017-05-24 23:13] VITALS: BP 110/75; PULSE 79; TEMP 37.3; O2SAT 98
[2017-05-24] MEDS ORDERED: PNEUMOCOCCAL POLYSACCHARIDES 25 MCG/0.5 ML VIAL/SYR IM. ONE (23:30)
[2017-05-24] MEDS ORDERED: PNEUMOCOCCAL ADMINISTRATION CHARGE ONE (23:30)
[2017-05-24] MEDS: KETOROLAC TROMETHAMINE 30 MG/ML VIAL IV PRN (23:40)
[2017-05-25] MEDS: PIPERACILL/TAZOBAC IV 3.375 GM in DEXTROSE 5% 100ML 100 ML IV SCH ×3 (05:59→21:44)
[2017-05-25] MEDS: SODIUM CHLORIDE 0.9% 1000ML 1,000 ML IV SCH ×3 (06:00→19:52)
[2017-05-25 07:16] VITALS: BP 100/67; PULSE 77; TEMP 36.6; O2SAT 99
[2017-05-25] MEDS: KETOROLAC TROMETHAMINE 30 MG/ML VIAL IV PRN ×2 (07:19→16:57)
[2017-05-25 07:52] LABS: HEMATOCRIT 31.3 % (37-47); MEAN CELL VOLUME 82.4 fL (80-100); MEAN CORPUSCULAR HEMOGLOBIN 27.4 pg (25-34); MEAN CORPUSCULAR HGB CONC 33.2 g/dl (32-36); MEAN PLATELET VOLUME 9.4 fL (7.4-10.4); PLATELET COUNT 555 K/uL (130-400); WHITE BLOOD COUNT 9.45 K/uL (4.8-10.8)
[2017-05-25 08:06] LABS: ESTIMATED AVERAGE GLUCOSE 387 mg/dl; HA1C FLAG Normal (Normal)
[2017-05-25 08:20] LABS: BUN/CREATININE RATIO 15.8 (10-20); CALCIUM 8.1 mg/dl (8.5-10.1); CREATININE 0.64 mg/dl (0.60-1.20); POTASSIUM 3.5 mmol/L (3.5-5.1)
[2017-05-25] MEDS: NICOTINE 21 MG/24 HR TDSY TD SCH (08:50)
[2017-05-25] MEDS: ATORVASTATIN 10 MG TAB PO SCH (08:50)
[2017-05-25] MEDS: INSULIN ASPART 100 UNITS/ML 3 ML PEN SC SCH ×4 (08:57→21:00)
[2017-05-25] MEDS ORDERED: NICOTINE 21 MG/24 HR TDSY TD SCH ×2 (09:00)
[2017-05-25] MEDS ORDERED: VANCOMYCIN CONSULT ACTIVE PRN (09:15)
[2017-05-25] MEDS ORDERED: VANCOMYCIN INJ 1,250 MG in SODIUM CHLORIDE 0.9% 250ML 250 ML IV ONE (10:15)
--- NOTE | 2017-05-25 10:28 | Surgery Consultation ---
Consultation Date of Consultation: May 25, 2017. Attending Physician: Gerald Duarte MD History of Present Illness pt has had left sided back/abd pain for 3 weeks with fever. symptoms got worse so she came to ER. denies urinary or bowel changes. has been eating normally/ hungry Past Medical/Surgical History Medical Problems: (1) Intra-abdominal abscess Status: Acute Family History Diabetes mellitus Social History Smoking Status: Current Every Day Smoker Marital Status: single Housing Status: lives with family Occupation Status: employed Allergies Coded Allergies: No Known Allergies (Unverified , 05/24/17) Home Medications Scheduled Atorvastatin (Lipitor), 10 MG PO DAILY Etodolac (Etodolac), 400 MG PO BID Etonogestrel (Nexplanon), 68 MG IM [id number] Insulin Aspart (Novolog), 8-15 UNITS SQ TID Insulin Glargine (Lantus), 20-22 UNITS SC QPM Nystatin (Nystatin Suspension), 1 DOSE PO QID Scheduled PRN Ibuprofen (Advil), 400-600 MG PO Q6H PRN for Pain Current Inpatient Medications Current Inpatient Medications Medications (Trade) Dose Ordered Sig/Jimy Route Start Time Stop Time Status Last Admin Dose Admin Ioversol (Optiray 320) 125 ml UD PRN IV 05/24/17 15:45 05/28/17 15:44 Acetaminophen (Tylenol Tab) 650 mg Q4H PRN PO 05/24/17 19:15 06/23/17 19:14 Al Hydrox/Mg Hydrox/Simethicone (Maalox Max Susp) 15 ml Q4H PRN PO 05/24/17 19:15 06/23/17 19:14 Magnesium Hydroxide (Milk Of Magnesia Susp) 30 ml Q6H PRN PO 05/24/17 19:15 06/23/17 19:14 Polyethylene (Miralax Powder Packet) 17 gm DAILY PRN PO 05/24/17 19:15 06/23/17 19:14 Ondansetron HCl (Zofran Inj) 4 mg Q6H PRN IV 05/24/17 19:15 06/23/17 19:14 Nicotine (Nicoderm Cq 21MG Patch) 1 patch QAM TD 05/25/17 09:00 06/24/17 08:59 05/25/17 08:50 1 PATCH Miscellaneous (Remove Nicoderm Patch) 1 ea HS N/A 05/24/17 21:00 06/23/17 20:59 05/24/17 21:00 1 EA Piperacillin Sod/ Tazobactam Sod 3.375 gm/Dextrose 115 ml @ 28.75 mls/ hr Q8H IV 05/24/17 22:00 06/03/17 21:59 05/25/17 05:59 28.75 MLS/HR Atorvastatin Calcium (Lipitor Tab) 10 mg DAILY PO 05/25/17 09:00 06/24/17 08:59 05/25/17 08:50 10 MG Ketorolac Tromethamine (Toradol Inj) 30 mg Q6H PRN IV 05/24/17 19:15 05/29/17 19:14 05/25/17 07:19 30 MG Sodium Chloride 1,000 ml @ 125 mls/hr Q8H IV 05/24/17 19:15 06/23/17 19:14 05/25/17 06:00 125 MLS/HR Insulin Glargine (Lantus Solostar Pen) 30 units HS SC 05/24/17 21:00 06/23/17 20:59 05/24/17 22:04 30 UNITS Insulin Aspart (novoLOG ASPART) SLIDING SCALE G... ACHS SC 05/24/17 21:00 06/23/17 20:59 05/25/17 08:57 3 UNITS Piperacillin Sod/ Tazobactam Sod (Consult) 1 ea UD PRN N/A 05/24/17 20:30 06/23/17 20:29 Glucose (Glucose 40% Gel) 15-30 GRAMS 15 GRAMS... UD PRN PO 05/24/17 20:30 06/23/17 20:29 Glucose (Glucose Chew Tab) 4-8 Tablets 4 Tabl... UD PRN PO 05/24/17 20:30 06/23/17 20:29 Dextrose (Dextrose 50% 50ML Syringe) 25-50ML OF 50% DW IV FOR... UD PRN IV 05/24/17 20:30 06/23/17 20:29 Glucagon (Glucagon Inj) 1 mg UD PRN SQ 05/24/17 20:30 06/23/17 20:29 Vancomycin HCl 1000 mg/Sodium Chloride 270 ml @ 125 mls/hr Q12@1000,2200 IV 05/25/17 22:00 06/04/17 09:59 Vancomycin HCl (Consult) 1 ea UD PRN N/A 05/25/17 09:15 06/24/17 09:14 Vancomycin HCl 1250 mg/Sodium Chloride 275 ml @ 125 mls/hr 1015 ONCE IV 05/25/17 10:15 05/25/17 12:26 Review of Systems Constitutional: + fever Abdomen: + pain Physical Exam Date Time Temp Pulse Resp B/P (MAP) Pulse Ox O2 Delivery O2 Flow Rate FiO2 05/25/17 07:16 36.6 77 14 100/67 (78) 99 Room Air 05/25/17 07:15 Room Air 05/24/17 23:40 Room Air 05/24/17 23:13 37.3 79 14 110/75 (87) 98 Room Air 05/24/17 21:45 Room Air 05/24/17 20:50 36.8 108 16 119/77 98 05/24/17 20:45 36.7 86 16 103/67 (79) 99 Room Air 05/24/17 20:18 Room Air 05/24/17 14:41 36.8 108 16 119/77 98 Room Air General Appearance: no apparent distress Head: normocephalic, atraumatic Eyes: PERRL, EOMI ENT: hearing grossly normal Neck: supple, no JVD Respiratory/Chest: no respiratory distress, no accessory muscle use Abdomen/GI: non tender, soft Back: + left CVA tenderness Neurologic/Psych: alert, oriented x 3 Skin: normal color, warm/dry Laboratory Results Last 24 Hours Test 05/24/17 15:40 05/24/17 17:46 05/24/17 19:22 05/24/17 21:34 White Blood Count 9.71 K/uL Red Blood Count 4.21 M/uL Hemoglobin 11.8 g/dL Hematocrit 34.9 % Mean Corpuscular Volume 82.9 fL Mean Corpuscular Hemoglobin 28.0 pg Mean Corpuscular Hemoglobin Concent 33.8 g/dl Platelet Count 672 K/uL Mean Platelet Volume 9.6 fL Neutrophils (%) (Auto) 63.4 % Lymphocytes (%) (Auto) 27.5 % Monocytes (%) (Auto) 3.8 % Eosinophils (%) (Auto) 4.7 % Basophils (%) (Auto) 0.2 % Neutrophils # (Auto) 6.15 K/uL Lymphocytes # (Auto) 2.67 K/uL Monocytes # (Auto) 0.37 K/uL Eosinophils # (Auto) 0.46 K/uL Basophils # (Auto) 0.02 K/uL RDW Standard Deviation 44.9 fL RDW Coefficient of Variation 14.8 % Immature Granulocyte % (Auto) 0.4 % Immature Granulocyte # (Auto) 0.04 K/uL Urine Color YELLOW Urine Appearance CLEAR Urine pH 6.5 Urine Specific [place] 1.038 Urine Protein NEG Urine Glucose (UA) 3+ Urine Ketones NEG Urine Occult Blood TRACE Urine Nitrite NEG Urine Bilirubin NEG Urine Urobilinogen NEG Urine Leukocyte Esterase NEG Urine WBC (Auto) 5-10 /hpf Urine RBC (Auto) 0-4 /hpf Urine Hyaline Casts (Auto) 1-5 /lpf Urine Epithelial Cells (Auto) >30 /lpf Urine Bacteria (Auto) NEG Urine Test NEG Sodium Level 133 mmol/L Potassium Level 4.3 mmol/L Chloride Level 98 mmol/L Carbon Dioxide Level 28 mmol/L Anion Gap 7.0 mmol/L Blood Urea Nitrogen 12 mg/dl Creatinine 0.86 mg/dl Est Creatinine Clear Calc Drug Dose 73.4 ml/min Estimated GFR () 101.4 Estimated GFR (Non- 87.5 BUN/Creatinine Ratio 13.6 Random Glucose 412 mg/dl Calcium Level 9.4 mg/dl Total Bilirubin 0.2 mg/dl Direct Bilirubin 0.1 mg/dl Aspartate Amino Transf (AST/SGOT) 14 U/L Alanine Aminotransferase (ALT/SGPT) 16 U/L Alkaline Phosphatase 247 U/L Total Protein 8.8 gm/dl Albumin 2.4 gm/dl Lipase 53 U/L Beta-Hydroxybutyric Acid 0.86 mg/dL Lactic Acid Level 2.0 mmol/L Bedside Glucose 216 mg/dl 108 mg/dl Test 05/25/17 02:26 05/25/17 07:02 05/25/17 08:03 Bedside Glucose 86 mg/dl 99 mg/dl White Blood Count 9.45 K/uL Red Blood Count 3.80 M/uL Hemoglobin 10.4 g/dL Hematocrit 31.3 % Mean Corpuscular Volume 82.4 fL Mean Corpuscular Hemoglobin 27.4 pg Mean Corpuscular Hemoglobin Concent 33.2 g/dl RDW Standard Deviation 44.3 fL RDW Coefficient of Variation 14.7 % Platelet Count 555 K/uL Mean Platelet Volume 9.4 fL Sodium Level 141 mmol/L Potassium Level 3.5 mmol/L Chloride Level 108 mmol/L Carbon Dioxide Level 27 mmol/L Anion Gap 6.0 mmol/L Blood Urea Nitrogen 10 mg/dl Creatinine 0.64 mg/dl Est Creatinine Clear Calc Drug Dose 98.6 ml/min Estimated GFR () 134.0 Estimated GFR (Non- 115.6 BUN/Creatinine Ratio 15.8 Random Glucose 80 mg/dl Estimated Average Glucose 387 mg/dl Hemoglobin A1c 15.1 % Calcium Level 8.1 mg/dl Assessment & Plan CT shows retroperitoneal inflammation/abcess...? diverticulitis vs urinary clinically appears more urinary. she is very "hungry" and ate this AM without consequence. her pain is primarily in her left flank no abdominal tenderness rec urology consult. if clinically worsens may need IR drain normally would make NPO however pt has been eating with no issue. no abdominal pain/nausea etc... afebrile and clinically starting to feel a little better will follow along.
--- NOTE | 2017-05-25 12:41 | Pharmacy Progress Note ---
Pharmacy Abx Initial Consult Date of Service May 25, 2017. Pharmacy Dosing Scope Date of Consult: 05/25/17 Consultation requested by: Dr. Duarte Pharmacy is consulted to initiate Vancomycin IV dosing therapy, order appropriate labs and adjust drug dose/frequency for GI infection. Subjective The patient is a 36 year old female admitted on May 24, 2017 at 19:36. Objective Height (Feet): 5 Height (Inches): 4.00 Weight (Kilograms): 50.900 Vital Signs (Past 12Hrs) Vital Signs Past 12 Hours Date Time Temp Pulse Resp B/P (MAP) Pulse Ox O2 Delivery O2 Flow Rate FiO2 05/25/17 07:16 36.6 77 14 100/67 (78) 99 Room Air 05/25/17 07:15 Room Air Lab Results (24Hrs) Laboratory Tests (24 Hours) Test 05/24/17 15:40 05/24/17 17:46 05/25/17 07:02 White Blood Count 9.71 K/uL (4.8-10.8) 9.45 K/uL (4.8-10.8) Red Blood Count 4.21 M/uL (4.2-5.4) Hemoglobin 11.8 g/dL (12.0-16.0) L Hematocrit 34.9 % (37-47) L Mean Corpuscular Volume 82.9 fL (80-100) Mean Corpuscular Hemoglobin 28.0 pg (25-34) Mean Corpuscular Hemoglobin Concent 33.8 g/dl (32-36) Platelet Count 672 K/uL (130-400) H Mean Platelet Volume 9.6 fL (7.4-10.4) Neutrophils (%) (Auto) 63.4 % Lymphocytes (%) (Auto) 27.5 % Monocytes (%) (Auto) 3.8 % Eosinophils (%) (Auto) 4.7 % Basophils (%) (Auto) 0.2 % Neutrophils # (Auto) 6.15 K/uL (1.4-6.5) Lymphocytes # (Auto) 2.67 K/uL (1.2-3.4) Monocytes # (Auto) 0.37 K/uL (0.11-0.59) Eosinophils # (Auto) 0.46 K/uL (0-0.5) Basophils # (Auto) 0.02 K/uL (0-0.2) Lactic Acid Level 2.0 mmol/L (0.4-2.0) Micro Results Date/Time Source Procedure Growth Status 05/24/17 17:54 Blood Blood Culture Pending Received 05/24/17 17:46 Blood Blood Culture Pending Received Assessment & Plan Assessment 36 year old female with uncontrolled diabetes, with retroperitoneal abscess likely from colitis. Plan Vancomycin and Zosyn for treatment of retroperitoneal abscess. Vancomycin IV * Loading dose: Vanco 1250 mg (25 mg/kg) x1 today started around 1100 am. * Maintenance dose: Vanco 1000 mg IV (19.6 mg/kg) every 12 hours * Pharmacokinetics: Ke = 0.086/hr, t1/2 = 8 hrs, Vd = 0.7 L/kg. * Goal trough level for GI abscess: 15 to 25 mcg/mL * Trough level ordered for 05/27 before dose at 1000. Pharmacy will continue to follow and will adjust dose/frequency as necessary. Thank you.
[2017-05-25 15:23] VITALS: BP 118/77; PULSE 94; TEMP 37; O2SAT 98
[2017-05-25 16:01] VITALS: BMI 19.3
[2017-05-25] MEDS: VANCOMYCIN INJ 1,000 MG in SODIUM CHLORIDE 0.9% 250ML 250 ML IV SCH (21:44)
[2017-05-25] MEDS: INSULIN GLARGINE SOLOSTAR 100 UNITS/ML 3 ML PEN SC SCH (21:44)
[2017-05-25 23:35] VITALS: BP 115/79; PULSE 85; TEMP 36.8; O2SAT 98
--- NOTE | 2017-05-25 23:36 | GENITOURINARY CONSULTATION ---
DATE OF CONSULTATION: 05/25/2017 REASON FOR THE CONSULT: Retroperitoneal phlegmon and early abscess. HISTORY OF PRESENTATION: The patient is a 36-year-old female who 4 weeks ago began to have fever as high as 102. She had no idea why this was and had no other symptoms until 3 weeks ago she began to develop left flank pain and left abdominal pain that has gradually become increasingly severe. She denies any history of kidney stones. No back or flank trauma. She states that she has had a few urinary tract symptoms in the past but none recently and has no symptoms of dysuria or urgency. She denies hematuria. She does have a recent history of MRSA. She also has a history of IV drug use including recently, but she does say that she has not shared these needles and that they have been clean needles. She went to an outpatient Emergency Clinic and was told that she needs to come to the hospital and came to the hospital yesterday and was admitted to the hospital when a CT scan showed a right phlegmon. Her white blood cell count is normal. She does have a history of insulin-dependent diabetes. Urinalysis did show no bacteria, 5-10 whites, but it also appeared contaminated with greater than 30 epithelial cells, no hematuria. The CT scan which was reviewed with the radiologist states that there was an intrarenal abscess, but after reviewing it, this is not the case. There is a perirenal abscess that is quite small, the majority of this is a phlegmon. PAST MEDICAL HISTORY: Significant for having tonsillectomy and a D&C. SOCIAL HISTORY: The patient does smoke and as previously stated does use IV drugs, narcotic. Does not drink. ALLERGIES: She has no known drug allergies. MEDICATIONS: The patient takes insulin at home. She denies any other medical problems at this time. PHYSICAL EXAMINATION: GENERAL: Unremarkable. The patient is alert and oriented without obvious distress. VITAL SIGNS: Stable. HEENT: She has no obvious signs of pedal edema. HEART: Pulses regular. LUNGS: She has no respiratory distress. ABDOMEN: She has exquisite flank pain to her left flank and some pain in the left upper quadrant, just below her rib. Abdomen is otherwise soft. EXTREMITIES: Unremarkable. SKIN: Does show significant number of tattoos. NEUROLOGIC: She is alert and oriented without any focal or sensory deficits. ASSESSMENT: Perirenal abscess, quite possibly secondary to MRSA through skin infections which she has had as recently as in the past month and was treated only with ointment. There is no obvious skin infection now. Certainly, IV drug use could have been a way that this could have spread to this area. There is no obvious urologic source for this. At this time, would not recommend any kind of intervention review with the radiologist and I do not think the small amount of fluid is sufficient to drain at this time. If she does not improve on IV antibiotics alone, then would reimage and consider possible drainage of the perirenal abscess. We will be available to follow along with you but do not feel a urologic intervention at this time is necessary.
[2017-05-26] MEDS: PIPERACILL/TAZOBAC IV 3.375 GM in DEXTROSE 5% 100ML 100 ML IV SCH ×3 (05:23→21:45)
[2017-05-26] MEDS: SODIUM CHLORIDE 0.9% 1000ML 1,000 ML IV SCH ×3 (05:24→17:46)
--- NOTE | 2017-05-26 05:42 | Progress Note ---
Subjective Date of Service: May 25, 2017. Subjective Pt evaluation today including: conversation w/ patient, physical exam, chart review, lab review, review of studies (CT abd / pelvis), review of inpatient medication list Pain: LUQ, left flank PO Intake: fair Voiding: no voiding problems patient's only complaint is that of LUQ pain/left flank pain reports on/off fevers x 1 month was taking copious amounts of motrin at home for the pain and fever denies any urinary symptoms reports chronic constipation openly admits to noncompliance with checking blood sugars at home follows with [facility] at their [place] location Problem List Medical Problems: (1) Intra-abdominal abscess Status: Acute Review of Systems Constitutional: + fever, + weight loss (10 pounds in the last year), No chills Respiratory: No shortness of breath Cardiac: No chest pain Abdomen: + pain, + constipation, No nausea, No vomiting Objective Vital Signs Date Time Temp Pulse Resp B/P (MAP) Pulse Ox O2 Delivery O2 Flow Rate FiO2 05/25/17 15:35 Room Air 05/25/17 15:23 37.0 94 18 118/77 (91) 98 Room Air 05/25/17 07:16 36.6 77 14 100/67 (78) 99 Room Air 05/25/17 07:15 Room Air 05/24/17 23:40 Room Air 05/24/17 23:13 37.3 79 14 110/75 (87) 98 Room Air 05/24/17 21:45 Room Air Physical Exam General Appearance: no apparent distress, + thin ENT: pharynx normal Neck: no JVD Respiratory/Chest: lungs clear, no respiratory distress, no accessory muscle use Cardiovascular: regular rate, rhythm, no gallop, no murmur Abdomen: normal bowel sounds, soft, + splenomegaly, + pertinent finding (pain and fullness in the LUQ/left flank) Extremities: no pedal edema Neurologic/Psychiatric: alert, oriented x 3 Skin: + pertinent finding (multiple tattoos ) Laboratory Results Last 24 Hours Test 05/24/17 21:34 05/25/17 02:26 05/25/17 07:02 05/25/17 08:03 Bedside Glucose 108 mg/dl 86 mg/dl 99 mg/dl White Blood Count 9.45 K/uL Red Blood Count 3.80 M/uL Hemoglobin 10.4 g/dL Hematocrit 31.3 % Mean Corpuscular Volume 82.4 fL Mean Corpuscular Hemoglobin 27.4 pg Mean Corpuscular Hemoglobin Concent 33.2 g/dl RDW Standard Deviation 44.3 fL RDW Coefficient of Variation 14.7 % Platelet Count 555 K/uL Mean Platelet Volume 9.4 fL Sodium Level 141 mmol/L Potassium Level 3.5 mmol/L Chloride Level 108 mmol/L Carbon Dioxide Level 27 mmol/L Anion Gap 6.0 mmol/L Blood Urea Nitrogen 10 mg/dl Creatinine 0.64 mg/dl Est Creatinine Clear Calc Drug Dose 98.6 ml/min Estimated GFR () 134.0 Estimated GFR (Non- 115.6 BUN/Creatinine Ratio 15.8 Random Glucose 80 mg/dl Estimated Average Glucose 387 mg/dl Hemoglobin A1c 15.1 % Calcium Level 8.1 mg/dl Test 05/25/17 12:04 05/25/17 17:19 05/25/17 20:34 Bedside Glucose 261 mg/dl 206 mg/dl 129 mg/dl Assessment and Plan 36yo female: 1. suspected left perinephric abscess/phlegmon - appreciate gen surg consultation. Urology has been consulted for their recommendations as well. Thus far blood cx's are negative and she is hemodynamically stable and without peritoneal signs. Continue zosyn; add vanco for MRSA coverage. Await urology consultation. Need for additional imaging? defer to consultants. 2. T1DM, uncontrolled - glycemic control is improving with adjustments of novolog. Cont lantus/novolog. Would benefit from additional diabetic education while here. 3. anemia - could certainly be due to #1, but check iron studies, b12, and folate in am. 4. FEN - IVF with NS, T1DM diet, and repeat BMP in am. 5. DVT proph - if no surgical intervention is needed then add heparin BID. 6. thrombocytosis - could be reactive to #1. Repeat CBC in 1-2 days for stability. 7. elevated alk phos, low albumin - I am unclear as to the significance of this. The low albumin could represent protein calorie malnutrition, at least of moderate degree. Or it could represent chronic liver disease. Would repeat LFTs in a couple of days. If still abnormal consider viral hepatitis studies especially hepC given her copious tattoos. Would also check vitamin D level due to elevated alk phos. Continued [facility] stay due to: inadequate oral pain control, multiple IV medications needed
[2017-05-26 07:10] VITALS: BP 106/69; PULSE 77; TEMP 36.7; O2SAT 96
--- NOTE | 2017-05-26 08:11 | Progress Note ---
Subjective Date of Service: May 26, 2017. Subjective Pt evaluation today including: conversation w/ patient, physical exam, chart review pt continues to have pain Nofever Problem List Medical Problems: (1) Intra-abdominal abscess Status: Acute Objective Vital Signs Date Time Temp Pulse Resp B/P (MAP) Pulse Ox O2 Delivery O2 Flow Rate FiO2 05/26/17 07:10 36.7 77 15 106/69 (81) 96 Room Air 05/26/17 07:05 Room Air 05/26/17 00:25 Room Air 05/25/17 23:35 36.8 85 16 115/79 (91) 98 Room Air 05/25/17 15:35 Room Air 05/25/17 15:23 37.0 94 18 118/77 (91) 98 Room Air Laboratory Results Last 24 Hours Test 05/25/17 12:04 05/25/17 17:19 05/25/17 20:34 05/26/17 04:44 Bedside Glucose 261 mg/dl 206 mg/dl 129 mg/dl Transferrin % Saturation % Assessment and Plan Pt does not appear to be clinically toxic w no fever and nl wbc Would consider sonogram vs ct Renal ct to se if very small perirenal fluid collection has grown Sunday if not w improved pain Not large enough to warrent intervention after discussion with radiology last pm . No renal abscess . Given her Current iv drug use would address whether she needs help with this and try to avoid narcotics Continued [facility] stay due to: inadequate oral pain control, multiple IV medications needed
[2017-05-26] MEDS: INSULIN ASPART 100 UNITS/ML 3 ML PEN SC SCH ×4 (08:58→21:37)
[2017-05-26] MEDS: NICOTINE 21 MG/24 HR TDSY TD SCH (08:59)
[2017-05-26] MEDS: ATORVASTATIN 10 MG TAB PO SCH (08:59)
[2017-05-26 09:00] LABS: MEAN CELL VOLUME 82.9 fL (80-100); MEAN CORPUSCULAR HEMOGLOBIN 27.5 pg (25-34); MEAN CORPUSCULAR HGB CONC 33.1 g/dl (32-36); MEAN PLATELET VOLUME 9.7 fL (7.4-10.4); PLATELET COUNT 629 K/uL (130-400); RED BLOOD COUNT 3.86 M/uL (4.2-5.4); WHITE BLOOD COUNT 9.48 K/uL (4.8-10.8)
--- NOTE | 2017-05-26 09:26 | Surgery Progress Note ---
Surgery Progress Note Date of Service May 26, 2017. Subjective Patient examined at bedside this morning. Afebrile, vitals stable overnight on room air, no acute events. Pain is unchanged from yesterday, continues in left mid back / flank. Tolerating diet without N/V. Ambulating and voiding without difficulty. Last BM 05/24/17. No complaints. Objective Vital Signs: Date Time Temp Pulse Resp B/P (MAP) Pulse Ox O2 Delivery O2 Flow Rate FiO2 05/26/17 07:10 36.7 77 15 106/69 (81) 96 Room Air 05/26/17 07:05 Room Air 05/26/17 00:25 Room Air 05/25/17 23:35 36.8 85 16 115/79 (91) 98 Room Air 05/25/17 15:35 Room Air 05/25/17 15:23 37.0 94 18 118/77 (91) 98 Room Air General Appearance: WD/WN, no apparent distress Head: normocephalic Neck: supple Respiratory/Chest: lungs clear, normal breath sounds, no respiratory distress Cardiovascular: regular rate, rhythm Abdomen: normal bowel sounds, non tender, non distended, + pertinent finding ( Tender to palpation in left mid flank) Laboratory Results: Results Past 24 Hours Test 05/25/17 12:04 05/25/17 17:19 05/25/17 20:34 05/26/17 04:44 Range/Units Bedside Glucose 261 206 129 70-90 mg/dl Transferrin % Saturation 15-50 % Test 05/26/17 08:01 05/26/17 08:50 05/26/17 09:11 Range/Units White Blood Count 9.48 4.8-10.8 K/uL Red Blood Count 3.86 4.2-5.4 M/uL Hemoglobin 10.6 12.0-16.0 g/dL Hematocrit 32.0 37-47 % Mean Corpuscular Volume 82.9 80-100 fL Mean Corpuscular Hemoglobin 27.5 25-34 pg Mean Corpuscular Hemoglobin Concent 33.1 32-36 g/dl RDW Standard Deviation 44.7 36.4-46.3 fL RDW Coefficient of Variation 14.8 11.5-14.5 % Platelet Count 629 130-400 K/uL Mean Platelet Volume 9.7 7.4-10.4 fL Transferrin % Saturation 15-50 % Microbiology Results 05/26/17 Urine Culture, Alfredo Batch Pending Assessment & Plan Princess Katz is a 36 year old woman with a retroperitoneal abscess, unclear whether due to diverticulitis vs urinary origin vs IVDA source. No leukocytosis , BMP this morning still pending. -Diet as tolerated -Pain / nausea control as needed -Continue current antibiotics -Rest of care per primary team -Will follow clinically, if worsens may need to discuss IR drainage Juhi Zuñiga MD 05/26/17
[2017-05-26 09:42] LABS: URINE APPEARANCE CLEAR (CLEAR); URINE BILIRUBIN NEG (NEG); URINE COLOR YELLOW; URINE NITRITE NEG (NEG); URINE SPECIFIC GRAVITY 1.016 (1.000-1.030); UROBILINOGEN NEG (NEG)
[2017-05-26 09:48] LABS: MANUAL MICROSCOPIC REQUIRED? NO; REVIEW REQ? NO
[2017-05-26] MEDS: VANCOMYCIN INJ 1,000 MG in SODIUM CHLORIDE 0.9% 250ML 250 ML IV SCH ×2 (10:19→21:45)
[2017-05-26] MEDS: KETOROLAC TROMETHAMINE 30 MG/ML VIAL IV PRN (10:37)
[2017-05-26 11:04] LABS: BUN/CREATININE RATIO 10.8 (10-20); CALCIUM 8.1 mg/dl (8.5-10.1); CREATININE 0.84 mg/dl (0.60-1.20); POTASSIUM 3.8 mmol/L (3.5-5.1)
[2017-05-26 11:10] LABS: FERRITIN 110.8 ng/ml (8.0-388.0)
[2017-05-26 15:23] VITALS: BP 103/67; PULSE 82; TEMP 36.7; O2SAT 96
--- NOTE | 2017-05-26 18:12 | PROGRESS NOTE ---
DATE: 05/26/2017 HOSPITALIST PROGRESS NOTE HISTORY OF PRESENT ILLNESS: Mrs. Katz is 36-year-old type 1 diabetic female who was admitted with a left retroperitoneal abscess, unclear of its source, either renal or colonic. She continues to have ongoing left flank pain, which is quite significant at times, Toradol is not controlling her pain. She does not have any worsening of the pain and she is no longer having any fevers or chills. She is eating and drinking without difficulty and has not had any nausea or vomiting. She has had bowel movements and complains that her stools are hard. The patient offers no other complaints. MEDICATIONS: 1. Vancomycin IV. 2. Nicoderm CQ 21 mg patch. 3. Lipitor 10 mg daily. 4. Zosyn 3.375 grams IV q. 8 hours. 5. Lantus insulin 30 units subcutaneous injection at bedtime. 6. NovoLog sliding scale insulin. 7. Tylenol p.r.n. 8. Maalox Max p.r.n. 9. Milk of magnesia p.r.n. 10. MiraLax 17 grams daily as needed. 11. Zofran 4 mg IV q. 6 hours p.r.n. for nausea. 12. Toradol 30 mg IV q. 6 hours p.r.n. for pain. 13. Normal saline at 125 mL per hour. ALLERGIES: NKDA. PHYSICAL EXAMINATION: VITAL SIGNS: Temperature is 36.7 degrees Celsius, pulse 82 and regular, respiratory rate 16 and unlabored, and blood pressure 103/67. INR show a positive fluid balance of 6.423 L. Body weight 50.9 kilograms. GENERAL: The patient is in no acute distress. HEENT: Head is atraumatic and normocephalic. EOMs intact. Sclerae are anicteric. Face is symmetric. No perioral cyanosis. Mucous membranes moist. NECK: Without thyromegaly, adenopathy or JVD. CHEST AND LUNGS: Clear to auscultation throughout all lung pink, no wheezes or rales. CARDIOVASCULAR: S1 and S2. Regular without murmur, gallop or rub. ABDOMINAL EXAM: Bowel sounds present. Mild tender to palpation along the left upper abdomen, increased tender to palpation in her left flank. EXTREMITIES: Without clubbing, cyanosis or edema. NEUROLOGIC: The patient is awake, alert and oriented. Pleasant and cooperative. Answers questions appropriately. Speech is clear. Normal movement in bilateral upper and lower extremities. Gait pattern not assessed. ASSESSMENT: 1. Left retroperitoneal abscess, uncertain etiology, colonic versus renal. 2. Type 1 diabetes mellitus. 3. Tobacco use. PLAN: 1. Appreciate general surgery and urology's input. 2. Consider repeat CT scan of the abdomen and pelvis, possibly CT scan focused on kidneys to evaluate for source of retroperitoneal abscess. 3. Continue IV Zosyn and IV vancomycin. 4. May need interventional radiology consultation and placement of a transcutaneous drain -- if it worsens. 5. Continue insulin as currently prescribed. 6. Continue to monitor daily CBC with diff, electrolytes, and blood sugars. 7. Continue IV Toradol q. 6 hours p.r.n. for pain. 8. Add Tramadol 100 mg p.o. t.i.d. p.r.n. for pain. 9. Continue IV fluids. 10. Continue diet as tolerated. 11. We will continue to follow closely. We will make further recommendations pending her clinical course. Attending Attestation: I agree with the cotton components of LANNY Nuñez's progress note documentation. Gerald BROWNLEE
[2017-05-26] MEDS ORDERED: TRAMADOL HCL 50 MG TAB PO ONE (19:36)
[2017-05-26] MEDS: INSULIN GLARGINE SOLOSTAR 100 UNITS/ML 3 ML PEN SC SCH (21:38)
[2017-05-26] MEDS: TRAMADOL HCL 50 MG TAB PO SCH (22:00)
[2017-05-26 22:55] VITALS: BP 122/83; PULSE 82; TEMP 37; O2SAT 98
[2017-05-27] MEDS: SODIUM CHLORIDE 0.9% 1000ML 1,000 ML IV SCH ×3 (05:29→21:37)
[2017-05-27] MEDS: PIPERACILL/TAZOBAC IV 3.375 GM in DEXTROSE 5% 100ML 100 ML IV SCH ×3 (05:29→21:37)
[2017-05-27] MEDS: TRAMADOL HCL 50 MG TAB PO SCH ×3 (05:30→15:57)
[2017-05-27 07:42] VITALS: BP 105/67; PULSE 78; TEMP 36.8; O2SAT 94
[2017-05-27] MEDS: ATORVASTATIN 10 MG TAB PO SCH (09:23)
[2017-05-27] MEDS: INSULIN ASPART 100 UNITS/ML 3 ML PEN SC SCH ×4 (09:23→21:01)
[2017-05-27] MEDS: NICOTINE 21 MG/24 HR TDSY TD SCH (09:24)
[2017-05-27] MEDS: VANCOMYCIN INJ 1,000 MG in SODIUM CHLORIDE 0.9% 250ML 250 ML IV SCH ×2 (09:27→18:02)
--- NOTE | 2017-05-27 09:28 | Surgery Progress Note ---
Surgery Progress Note Date of Service May 27, 2017. Subjective Patient examined at bedside this morning. Afebrile, vitals stable on room air overnight, no acute events. No change in pain today, continues to have discomfort in left flank / back. She notes some relief with change in pain medications yesterday. Tolerating diet without N/V. Ambulating and voiding without difficulty. No complaints. Objective Vital Signs: Date Time Temp Pulse Resp B/P (MAP) Pulse Ox O2 Delivery O2 Flow Rate FiO2 05/27/17 07:42 36.8 78 18 105/67 (80) 94 Room Air 05/27/17 07:30 Room Air 05/27/17 00:30 Room Air 05/26/17 22:55 37.0 82 16 122/83 (96) 98 Room Air 05/26/17 15:45 Room Air 05/26/17 15:23 36.7 82 16 103/67 (79) 96 Room Air General Appearance: WD/WN Head: normocephalic Neck: supple Respiratory/Chest: lungs clear, normal breath sounds Cardiovascular: regular rate, rhythm Abdomen: non tender, non distended, soft, + tenderness (left flank, mid-back to palpation) Laboratory Results: Results Past 24 Hours Test 05/26/17 09:53 05/26/17 11:56 05/26/17 17:22 05/26/17 20:34 Range/Units Sodium Level 138 136-145 mmol/L Potassium Level 3.8 3.5-5.1 mmol/L Chloride Level 105 98-107 mmol/L Carbon Dioxide Level 25 21-32 mmol/L Anion Gap 8.0 3-11 mmol/L Blood Urea Nitrogen 9 7-18 mg/dl Creatinine 0.84 0.60-1.20 mg/dl Est Creatinine Clear Calc Drug Dose 75.1 ml/min Estimated GFR () 104.4 Estimated GFR (Non- 90.0 BUN/Creatinine Ratio 10.8 10-20 Random Glucose 194 70-99 mg/dl Calcium Level 8.1 8.5-10.1 mg/dl Iron Level 38 35-150 mcg/dl Total Iron Binding Capacity 205 250-450 mcg/dl Transferrin 158 200-360 mg/dl Transferrin % Saturation 17 15-50 % Ferritin 110.8 8.0-388.0 ng/ml Vitamin B12 Level 1376 211-911 pg/mL Folate 7.41 >5.38 ng/mL Bedside Glucose 190 184 163 70-90 mg/dl Test 05/27/17 04:44 05/27/17 07:58 Range/Units Bedside Glucose 187 70-90 mg/dl Assessment & Plan Princess Katz is a 36 year old woman with a retroperitoneal abscess, unclear whether due to diverticulitis vs urinary origin vs IVDA source. AM labs pending , clinically no change from yesterday. -Diet as tolerated -Pain / nausea control as needed -Continue current antibiotics -Rest of care per primary team -Will follow clinically, if worsens may need to discuss IR drainage Juhi Zuñiga MD 05/27/17
[2017-05-27 09:37] LABS: HEMATOCRIT 30.9 % (37-47); MEAN CELL VOLUME 82.2 fL (80-100); MEAN CORPUSCULAR HEMOGLOBIN 27.7 pg (25-34); MEAN CORPUSCULAR HGB CONC 33.7 g/dl (32-36); MEAN PLATELET VOLUME 9.1 fL (7.4-10.4); PLATELET COUNT 442 K/uL (130-400); RED BLOOD COUNT 3.76 M/uL (4.2-5.4); WHITE BLOOD COUNT 10.17 K/uL (4.8-10.8)
[2017-05-27 10:18] LABS: BUN/CREATININE RATIO 10.6 (10-20); CALCIUM 8.3 mg/dl (8.5-10.1); CREATININE 0.81 mg/dl (0.60-1.20); POTASSIUM 4.1 mmol/L (3.5-5.1)
--- NOTE | 2017-05-27 11:26 | Progress Note ---
Subjective Date of Service: May 27, 2017. Subjective Pt evaluation today including: conversation w/ patient, physical exam, chart review, lab review, conversation w/ home service consultant Pain: pain not markedly better PO Intake: discussed issues sourounding her pain and her iv narcotics use Problem List Medical Problems: (1) Intra-abdominal abscess Status: Acute Objective Vital Signs Date Time Temp Pulse Resp B/P (MAP) Pulse Ox O2 Delivery O2 Flow Rate FiO2 05/27/17 07:42 36.8 78 18 105/67 (80) 94 Room Air 05/27/17 07:30 Room Air 05/27/17 00:30 Room Air 05/26/17 22:55 37.0 82 16 122/83 (96) 98 Room Air 05/26/17 15:45 Room Air 05/26/17 15:23 36.7 82 16 103/67 (79) 96 Room Air Laboratory Results Last 24 Hours Test 05/26/17 11:56 05/26/17 17:22 05/26/17 20:34 05/27/17 07:58 Bedside Glucose 190 mg/dl 184 mg/dl 163 mg/dl 187 mg/dl Test 05/27/17 09:17 White Blood Count 10.17 K/uL Red Blood Count 3.76 M/uL Hemoglobin 10.4 g/dL Hematocrit 30.9 % Mean Corpuscular Volume 82.2 fL Mean Corpuscular Hemoglobin 27.7 pg Mean Corpuscular Hemoglobin Concent 33.7 g/dl RDW Standard Deviation 44.4 fL RDW Coefficient of Variation 14.9 % Platelet Count 442 K/uL Mean Platelet Volume 9.1 fL Sodium Level 139 mmol/L Potassium Level 4.1 mmol/L Chloride Level 107 mmol/L Carbon Dioxide Level 24 mmol/L Anion Gap 8.0 mmol/L Blood Urea Nitrogen 9 mg/dl Creatinine 0.81 mg/dl Est Creatinine Clear Calc Drug Dose 77.9 ml/min Estimated GFR () 109.1 Estimated GFR (Non- 94.1 BUN/Creatinine Ratio 10.6 Random Glucose 209 mg/dl Calcium Level 8.3 mg/dl Vancomycin Level Trough 11.3 mcg/ml Assessment and Plan Pt does not appear to be clinically toxic w no fever and nl wbc Would consider sonogram vs ct Renal ct to se if very small perirenal fluid collection has grown Sunday if not w improved pain Not large enough to warrant intervention after discussion with radiology Sunday. No renal abscess . Given her Current iv drug use would address whether she needs help with this and try to avoid narcotics Continued [facility] stay due to: inadequate oral pain control, multiple IV medications needed
[2017-05-27] MEDS: KETOROLAC TROMETHAMINE 30 MG/ML VIAL IV PRN ×2 (11:42→18:02)
--- NOTE | 2017-05-27 12:52 | Pharmacy Progress Note ---
Pharmacy Antibiotic Prog Note Date of Service May 27, 2017. Subjective The patient is currently receiving vancomycin 1000 mg IV every 12 hours. The patient is currently on day # 410 of vancomycin and Zosyn IV therapy. Objective Height (Feet): 5 Height (Inches): 4.00 Weight (Kilograms): 50.900 Lab Results (24hrs): Test 05/27/17 07:58 05/27/17 09:17 05/27/17 11:52 Bedside Glucose 187 mg/dl (70-90) 160 mg/dl (70-90) White Blood Count 10.17 K/uL (4.8-10.8) Red Blood Count 3.76 M/uL (4.2-5.4) Hemoglobin 10.4 g/dL (12.0-16.0) Hematocrit 30.9 % (37-47) Mean Corpuscular Volume 82.2 fL (80-100) Mean Corpuscular Hemoglobin 27.7 pg (25-34) Mean Corpuscular Hemoglobin Concent 33.7 g/dl (32-36) RDW Standard Deviation 44.4 fL (36.4-46.3) RDW Coefficient of Variation 14.9 % (11.5-14.5) Platelet Count 442 K/uL (130-400) Mean Platelet Volume 9.1 fL (7.4-10.4) Sodium Level 139 mmol/L (136-145) Potassium Level 4.1 mmol/L (3.5-5.1) Chloride Level 107 mmol/L (98-107) Carbon Dioxide Level 24 mmol/L (21-32) Anion Gap 8.0 mmol/L (3-11) Blood Urea Nitrogen 9 mg/dl (7-18) Creatinine 0.81 mg/dl (0.60-1.20) Est Creatinine Clear Calc Drug Dose 77.9 ml/min Estimated GFR () 109.1 Estimated GFR (Non- 94.1 BUN/Creatinine Ratio 10.6 (10-20) Random Glucose 209 mg/dl (70-99) Calcium Level 8.3 mg/dl (8.5-10.1) Vancomycin Level Trough 11.3 mcg/ml (SEE COMMENT) Micro Results: Blood cx: NGTD Urine: NG Assessment & Plan Vancomycin trough: 11.3mcg/ml This drug level is Subtherapeutic. Pt w/ retroperitoneal abscess, still with discomfort/pain. She is followed by surgery. Change to vancomycin 1000 mg IV every 10 hours. Goal trough level estimate: between 15 - 20 mcg/mL. Peak and trough or random level has been ordered for: 05/28 prior to 1400 dose. Pharmacy will continue to follow and will adjust dose/frequency as necessary. Thank you
--- NOTE | 2017-05-27 13:50 | Hospitalist Progress Note ---
Hospitalist Progress Note Date of Service May 27, 2017. (Arlene Fitzgerald PA-C) Subjective Pt evaluation today including: conversation w/ patient, physical exam, chart review, lab review, review of studies Pain: improving PO Intake: Good Voiding: no voiding problems The patient was seen and examined this morning. Pt reports feeling better today. She is still having some abdominal pain and CVA tenderness. She reports feeling sweaty overnight, but no documented fevers. She is tolerating diet without difficulty, pt had a BM this morning. Denies any other acute complaints. Discussion was held with radiologist regarding CT scan, Dr. Delacruz. Plan to repeat the CT scan tomorrow morning to see if there is improvement in the retroperitoneal speace/plegmon- in this case will plan to transition to oral abx. If its worse then likely will need IR procedure to drain it- depending on the size, then will need to determine if drainage can be done here or if needs for transfer to OSH. Constitutional: No fever, No chills, No sweats Respiratory: No shortness of breath, No dyspnea at rest Cardiovascular: No chest pain, No palpitations Abdomen: + see HPI, + pain (improving), No nausea, No vomiting, No diarrhea Musculoskeletal: No joint pain, No muscle pain Neurologic: No weakness, No numbness/tingling Endo: No fatigue Skin: No rash, No itch (Arlene Fitzgerald PA-C) Objective Vital Signs Date Time Temp Pulse Resp B/P (MAP) Pulse Ox O2 Delivery O2 Flow Rate FiO2 05/27/17 07:42 36.8 78 18 105/67 (80) 94 Room Air 05/27/17 07:30 Room Air 05/27/17 00:30 Room Air 05/26/17 22:55 37.0 82 16 122/83 (96) 98 Room Air 05/26/17 15:45 Room Air 05/26/17 15:23 36.7 82 16 103/67 (79) 96 Room Air (Arlene Fitzgerald PA-C) Physical Exam General Appearance: WD/WN, no apparent distress, + thin Eyes: PERRL, EOMI ENT: hearing grossly normal, pharynx normal Neck: supple, no JVD Respiratory/Chest: lungs clear, no respiratory distress, no accessory muscle use, + pertinent finding (on room air) Cardiovascular: regular rate, rhythm, no murmur Abdomen: normal bowel sounds, soft, no organomegaly, + distended (slightly) Extremities: non-tender, no pedal edema, no calf tenderness Neurologic/Psychiatric: alert, normal mood/affect, oriented x 3 Skin: normal color, warm/dry, + pertinent finding (multiple tattoos) (Arlene Fitzgerald PA-C) Laboratory Results Last 24 Hours Test 05/26/17 17:22 05/26/17 20:34 05/27/17 07:58 05/27/17 09:17 Bedside Glucose 184 mg/dl 163 mg/dl 187 mg/dl White Blood Count 10.17 K/uL Red Blood Count 3.76 M/uL Hemoglobin 10.4 g/dL Hematocrit 30.9 % Mean Corpuscular Volume 82.2 fL Mean Corpuscular Hemoglobin 27.7 pg Mean Corpuscular Hemoglobin Concent 33.7 g/dl RDW Standard Deviation 44.4 fL RDW Coefficient of Variation 14.9 % Platelet Count 442 K/uL Mean Platelet Volume 9.1 fL Sodium Level 139 mmol/L Potassium Level 4.1 mmol/L Chloride Level 107 mmol/L Carbon Dioxide Level 24 mmol/L Anion Gap 8.0 mmol/L Blood Urea Nitrogen 9 mg/dl Creatinine 0.81 mg/dl Est Creatinine Clear Calc Drug Dose 77.9 ml/min Estimated GFR () 109.1 Estimated GFR (Non- 94.1 BUN/Creatinine Ratio 10.6 Random Glucose 209 mg/dl Calcium Level 8.3 mg/dl Vancomycin Level Trough 11.3 mcg/ml Test 05/27/17 11:52 Bedside Glucose 160 mg/dl (Arlene Fitzgerald, [place]) Assessment and Plan This is a 36 yo F with PMHx of diabetes mellitus type I, tobacco abuse, and hx of IVDA. Left retroperitoneal abscess, uncertain etiology - Reviewed CT from 05/24 with radiologist due to question of etiology. There is only a 1" area in the L kidney which is fluid filled, and would be difficult to drain. The retroperitoneal phlegmon, area of inflammation however is larger and has the potential to turn into loculated vs nonloculated abscess. Will plan to repeat CT of the abdomen with contrast tomorrow, and evaluate to see if improving or it worse. If improved, then will consult ID and ask for oral antibiotic recs. If worse, then will consider IR procedure. - No leukocytosis, WBC =9 - VSS and afebrile - BCx and UCx from 05/24 negative - Appreciate general surgery and urology's input. - Continue zosyn and vanc day #3 - Analgesia with toradol Q6H prn and tramadol 100 mg TID prn for pain. - Will turn off IVFs as she is tolerating a regular diet without difficulty. DM I - Continue Lantus 30 U QHS, along with ISS with accuchecks ACHS HLD - Cont atorvastatin 10 mg daily Tobacco abuse - Cessation encouraged at bedside Hx of IVDA - Pt is MRSA + which she reports is from previous tattoo on her back. - Counseling should be provided prior to discharge DVT ppx: Teds, scds, ambulatory CODE STATUS: FULL CODE Disposition: From home, anticipated d/c within 1-[address] scan shows improvement tomorrow morning. (Arlene Fitzgerald, [place]) PA Physician Supervision Note: I interviewed and examined the patient. Discussed with Arlene Fitzgerald PAC and agree with findings and plan as documented in the note. Any exceptions or clarifications are listed here: None Pt states pain is improved, fever trend is down pain still at left CVA abd is soft but guarding perinephric inflamatory mass, improving clinically, will repeat imaging to see if organized to abscess, if so will drain if improved will continue antibiotics , until then will use pain meds for clinical improvement Documented By: Omero Catalan (Omero Catalan M.D.)
[2017-05-27 14:56] VITALS: BP 115/79; PULSE 76; TEMP 36.5; O2SAT 96
[2017-05-27] MEDS: INSULIN GLARGINE SOLOSTAR 100 UNITS/ML 3 ML PEN SC SCH (21:02)
[2017-05-27 23:15] VITALS: BP 127/83; PULSE 71; TEMP 36.7; O2SAT 97
[2017-05-28] MEDS: KETOROLAC TROMETHAMINE 30 MG/ML VIAL IV PRN (00:01)
[2017-05-28] MEDS: VANCOMYCIN INJ 1,000 MG in SODIUM CHLORIDE 0.9% 250ML 250 ML IV SCH ×2 (04:04→14:27)
[2017-05-28] MEDS: TRAMADOL HCL 50 MG TAB PO SCH ×2 (05:51→14:17)
[2017-05-28] MEDS: PIPERACILL/TAZOBAC IV 3.375 GM in DEXTROSE 5% 100ML 100 ML IV SCH ×2 (06:15→14:19)
[2017-05-28 07:30] VITALS: BP 96/63; PULSE 72; TEMP 36.6; O2SAT 93
[2017-05-28 08:19] VITALS: O2SAT 93
--- NOTE | 2017-05-28 08:31 | Hospitalist Progress Note ---
Hospitalist Progress Note Date of Service May 28, 2017. Subjective Pt evaluation today including: conversation w/ patient, conversation w/ family , physical exam, chart review, lab review, review of studies Pain: Abdominal PO Intake: Good Voiding: no voiding problems The patient was seen and examined this morning. Pt reports still having some abdominal pain this morning, she is tolerating a diet and moving her bowels without difficulty. She denies nausea or vomiting. She has been ambulating about the room without difficulty. Pt is hopeful to go home prior to Sunday because it's her daughters birthday. Constitutional: No fever, No chills, No sweats Eyes: No redness, No discharge ENT: No nasal symptoms, No trouble swallowing Respiratory: No cough, No wheezing, No shortness of breath Cardiovascular: No chest pain, No palpitations Abdomen: + pain, No nausea, No vomiting, No diarrhea, No constipation Musculoskeletal: No joint pain, No muscle pain Female : No dysuria Endo: No fatigue Skin: No rash, No itch Objective Vital Signs Date Time Temp Pulse Resp B/P (MAP) Pulse Ox O2 Delivery O2 Flow Rate FiO2 05/28/17 08:19 93 Room Air 05/28/17 07:30 36.6 72 16 96/63 (74) 93 Room Air 05/28/17 00:00 Room Air 05/27/17 23:15 36.7 71 16 127/83 (98) 97 Room Air 05/27/17 16:45 Room Air 05/27/17 14:56 36.5 76 18 115/79 (91) 96 Room Air Physical Exam General Appearance: WD/WN, no apparent distress Eyes: PERRL, EOMI ENT: hearing grossly normal, pharynx normal Neck: supple, no JVD Respiratory/Chest: lungs clear, no respiratory distress, no accessory muscle use Cardiovascular: no murmur, + tachycardia (regular rate) Abdomen: soft, + pertinent finding (Slightly hypoactive bowel sounds, +minimal distension but appears the same as yesterday, +tenderness with generalized palpation.) Extremities: non-tender, no pedal edema, no calf tenderness Neurologic/Psychiatric: alert, oriented x 3 Skin: normal color, warm/dry, + pertinent finding (multiple tattoos) Laboratory Results Last 24 Hours Test 05/27/17 09:17 05/27/17 11:52 05/27/17 17:16 05/27/17 20:48 White Blood Count 10.17 K/uL Red Blood Count 3.76 M/uL Hemoglobin 10.4 g/dL Hematocrit 30.9 % Mean Corpuscular Volume 82.2 fL Mean Corpuscular Hemoglobin 27.7 pg Mean Corpuscular Hemoglobin Concent 33.7 g/dl RDW Standard Deviation 44.4 fL RDW Coefficient of Variation 14.9 % Platelet Count 442 K/uL Mean Platelet Volume 9.1 fL Sodium Level 139 mmol/L Potassium Level 4.1 mmol/L Chloride Level 107 mmol/L Carbon Dioxide Level 24 mmol/L Anion Gap 8.0 mmol/L Blood Urea Nitrogen 9 mg/dl Creatinine 0.81 mg/dl Est Creatinine Clear Calc Drug Dose 77.9 ml/min Estimated GFR () 109.1 Estimated GFR (Non- 94.1 BUN/Creatinine Ratio 10.6 Random Glucose 209 mg/dl Calcium Level 8.3 mg/dl Vancomycin Level Trough 11.3 mcg/ml Bedside Glucose 160 mg/dl 325 mg/dl 355 mg/dl Test 05/28/17 03:44 05/28/17 04:08 05/28/17 08:00 Bedside Glucose 61 mg/dl 122 mg/dl 276 mg/dl Assessment and Plan This is a 36 yo F with PMHx of diabetes mellitus type I, tobacco abuse, and hx of IVDA. Left retroperitoneal abscess, uncertain etiology - Reviewed CT from 05/24 with radiologist due to question of etiology. There is only a 1" area in the L kidney which is fluid filled, and would be difficult to drain. The retroperitoneal phlegmon, area of inflammation however is larger and has the potential to turn into loculated vs nonloculated abscess. - Repeat CT of the abdomen with contrast today: If improved, then will consult ID and ask for oral antibiotic recs. If worse, then will consider IR procedure. - No leukocytosis, WBC =10.17, remains stable - VSS and afebrile - BCx and UCx from 05/24 negative - Appreciate general surgery and urology's input. - Continue zosyn and vanc day #4 - Analgesia with toradol Q6H prn and tramadol 100 mg TID prn for pain. - IVFs off on 05/27 DM I - Continue Lantus 30 U QHS, along with ISS with accuchecks ACHS - Pt has been requiring essentially double her [employer] regimen: Lantus 50 U QPM vs her outpatient regimen of 22 U QPM. - Overnight blood glucose check was slightly low =61, although the patient was sleeping at this time. HLD - Cont atorvastatin 10 mg daily Tobacco abuse - Cessation encouraged at bedside Hx of IVDA - Pt is MRSA + which she reports is from previous tattoo on her back. - Counseling should be provided prior to discharge DVT ppx: Teds, scds, ambulatory CODE STATUS: FULL CODE Disposition: From home, anticipated d/c within 1-[address] scan shows improvement this morning.
[2017-05-28] MEDS: NICOTINE 21 MG/24 HR TDSY TD SCH (08:35)
[2017-05-28] MEDS: ATORVASTATIN 10 MG TAB PO SCH (08:35)
[2017-05-28] MEDS: INSULIN ASPART 100 UNITS/ML 3 ML PEN SC SCH ×3 (08:44→18:17)
[2017-05-28] MEDS ORDERED: OPTIRAY 320 IV PRN (08:45)
--- NOTE | 2017-05-28 10:11 | Progress Note ---
Subjective Date of Service: May 28, 2017. Subjective Pt evaluation today including: conversation w/ patient, chart review, lab review Voiding: no voiding problems 36 yo female with left retroperitoneal phlegmon. Pt continues to have some left back pain, but says it has improved. Denies n/v. Denies dysuria or hematuria. Repeat CT pending this AM. Problem List Medical Problems: (1) Intra-abdominal abscess Status: Acute Review of Systems Constitutional: No fever, No chills Respiratory: No shortness of breath Cardiac: No chest pain Abdomen: No pain, No nausea, No vomiting Musculoskeletal: + problem reported (left back pain ) Female : No dysuria, No hematuria Heme: No abnormal bleeding/bruising Objective Vital Signs Date Time Temp Pulse Resp B/P (MAP) Pulse Ox O2 Delivery O2 Flow Rate FiO2 05/28/17 08:19 93 Room Air 05/28/17 07:30 36.6 72 16 96/63 (74) 93 Room Air 05/28/17 00:00 Room Air 05/27/17 23:15 36.7 71 16 127/83 (98) 97 Room Air 05/27/17 16:45 Room Air 05/27/17 14:56 36.5 76 18 115/79 (91) 96 Room Air Physical Exam General Appearance: no apparent distress Eyes: normal inspection ENT: hearing grossly normal Neck: no JVD Respiratory/Chest: no respiratory distress, no accessory muscle use Cardiovascular: no JVD Abdomen: non tender, soft Extremities: normal inspection Neurologic/Psychiatric: alert, normal mood/affect, oriented x 3 Skin: normal color Laboratory Results Last 24 Hours Test 05/27/17 11:52 05/27/17 17:16 05/27/17 20:48 05/28/17 03:44 Bedside Glucose 160 mg/dl 325 mg/dl 355 mg/dl 61 mg/dl Test 05/28/17 04:08 05/28/17 08:00 Bedside Glucose 122 mg/dl 276 mg/dl Assessment and Plan A/P: Left retroperitoneal phlegmon AFVSS. UC&S is negative. White count remains normal. She remains afebrile. Will recheck CT this morning. If significantly worse, may need to consider drainage. Pain management per primary service. Will continue to follow along at this time. Continued [facility] stay due to: inadequate oral pain control, multiple IV medications needed
--- NOTE | 2017-05-28 10:27 | DIAGNOSTIC IMAGING REPORT ---
ABD WITH IV AND ORAL CONT (CT) CLINICAL HISTORY: 36 years-old Female presenting with evaluate R kidney/retroperitoneal abscess/phlegmon. TECHNIQUE: Multidetector CT of the abdomen was performed after the administration of oral and intravenous contrast. IV contrast: 93 mL of Optiray 320. A dose lowering technique was used consistent with the principles of ALARA (as low as reasonably achievable). COMPARISON: 05/24/2017. CT DOSE (mGy.cm): The estimated cumulative dose is 197.17 mGycm. FINDINGS: [facility] topogram: Unremarkable. Lung bases: Slight interval increase in size of the small left pleural effusion. Interval increase in left basilar dependent and peribronchovascular consolidation. Minimal dependent opacities in the right lung likely atelectasis. Normal heart size. Liver: Normal morphology. Mild periportal edema grade no focal lesion. Patent hepatic vasculature. Biliary: Mild central biliary ductal prominence may be present. No intrahepatic biliary ductal dilatation. Nondistended. Slight prominence of the gallbladder wall, possibly due to underdistention. Pancreas: Atrophy of the pancreatic parenchyma. Spleen: Enlarged measuring 14 cm in maximal sagittal dimension. Adrenal glands: Normal. Kidneys and ureters: No change in focal region of cortical scarring in the posterior aspect of the interpolar region of the right kidney. Persistent heterogeneous hypoenhancement of the lateral aspect of the lower pole the left kidney adjacent to perinephric and posterior left perirenal inflammatory change. No hydronephrosis. No intrarenal abscess. Ureters poorly visualized. Bowel: Moderate stool burden throughout the normal caliber colon. Peritoneal cavity: No free fluid or intraperitoneal gas. Retroperitoneum: Decreased retroperitoneal inflammation in the left anterior and posterior pararenal spaces. No well-defined abscess. This appears to primarily be centered at the kidney rather than along the colon. Vasculature: Prominent perigastric collateral vessels. Aorta and IVC patent. Lymph nodes: No gross evidence of lymphadenopathy allowing for mesenteric infiltration. Abdominal wall: Normal. Musculoskeletal: Normal. IMPRESSION: 1. Decreased overall retroperitoneal inflammation in the left anterior and posterior pararenal spaces with focal region of hypoperfusion in the left kidney and associated perinephric inflammatory change. This is felt to most likely be due to an infectious etiology emanating from the kidney. No adjacent convincing evidence of colonic wall thickening to suggest colonic origin. Finding is most consistent with severe lobar nephronia. Less likely differential considerations include lymphomatous involvement. Continued imaging and clinical follow-up after antibiotics recommended. 2. Mild splenomegaly. 3. Mild periportal edema likely reactive. 4. Small left pleural effusion with extensive left lower lobe consolidation, most likely atelectasis although an infectious etiology cannot be excluded. Electronically signed by: Alfredo Ascencio M.D. 05/28/2017 10:25 AM Dictated Date/Time: 05/28/2017 10:14 AM
--- NOTE | 2017-05-28 10:46 | Surgery Progress Note ---
Surgery Progress Note Date of Service May 28, 2017. Subjective tolerating diet, fevers resolved, left flank discomfort but improved Objective Vital Signs: Date Time Temp Pulse Resp B/P (MAP) Pulse Ox O2 Delivery O2 Flow Rate FiO2 05/28/17 08:19 93 Room Air 05/28/17 07:50 Room Air 05/28/17 07:30 36.6 72 16 96/63 (74) 93 Room Air 05/28/17 00:00 Room Air 05/27/17 23:15 36.7 71 16 127/83 (98) 97 Room Air 05/27/17 16:45 Room Air 05/27/17 14:56 36.5 76 18 115/79 (91) 96 Room Air Abdomen: non tender, non distended, soft, + pertinent finding (left CVA tenderness) Laboratory Results: Results Past 24 Hours Test 05/27/17 11:52 05/27/17 17:16 05/27/17 20:48 05/28/17 03:44 Range/Units Bedside Glucose 160 325 355 61 70-90 mg/dl Test 05/28/17 04:08 05/28/17 08:00 Range/Units Bedside Glucose 122 276 70-90 mg/dl Diagnostic Interpretation: CT IMPRESSION: 1. Decreased overall retroperitoneal inflammation in the left anterior and posterior pararenal spaces with focal region of hypoperfusion in the left kidney and associated perinephric inflammatory change. This is felt to most likely be due to an infectious etiology emanating from the kidney. No adjacent convincing evidence of colonic wall thickening to suggest colonic origin. Finding is most consistent with severe lobar nephronia. Less likely differential considerations include lymphomatous involvement. Continued imaging and clinical follow-up after antibiotics recommended. 2. Mild splenomegaly. 3. Mild periportal edema likely reactive. 4. Small left pleural effusion with extensive left lower lobe consolidation, most likely atelectasis although an infectious etiology cannot be excluded. Electronically signed by: Alfredo Ascencio M.D. 05/28/2017 10:25 AM Assessment & Plan left retroperitoneal phlegmon CT improved Cont IV abx urology following
[2017-05-28 11:00] VITALS: Ht 162.6 cm; Wt 50.9 kg
[2017-05-28] MEDS: SODIUM CHLORIDE 0.9% 1000ML 1,000 ML IV SCH (11:12)
[2017-05-28] MEDS ORDERED: VANCOMYCIN TROUGH SCH (13:30)
--- NOTE | 2017-05-28 14:39 | Medical Consult ---
Consultation Date of Consultation: May 28, 2017. Attending Physician: Omero Catalan M.D. Reason for Consultation: Evaluate for antibiotic recommendations History of Present Illness 36-year-old female with history of IVDU, type 1 diabetes mellitus, recurrent skin infections with MRSA, who presented to the hospital with several days of progressively worsening left flank pain. This was associated with fever and chills. She eventually came to the emergency department where she was found to have a large left retroperitoneal phlegmon probably originating in the left kidney. She has been treated with combination of vancomycin and Zosyn and has improved significantly. She is currently afebrile with normal white blood cell count. Blood cultures have been negative, urine growing yeast. Urinalysis not consistent with fungal infection. Past Medical/Surgical History Medical Problems: (1) Intra-abdominal abscess Status: Acute Medical Problems: (1) MRSA (methicillin resistant staph aureus) culture positive (2) Type 1 diabetes Surgical History: Tonsillectomy, D+C Family History Diabetes mellitus Social History Smoking Status: Current Every Day Smoker Marital Status: single Housing Status: lives with family Occupation Status: employed Allergies Coded Allergies: No Known Allergies (Unverified , 05/24/17) Current Inpatient Medications Current Inpatient Medications Medications (Trade) Dose Ordered Sig/Jimy Route Start Time Stop Time Status Last Admin Dose Admin Ioversol (Optiray 320) 125 ml UD PRN IV 05/24/17 15:45 05/28/17 15:44 Acetaminophen (Tylenol Tab) 650 mg Q4H PRN PO 05/24/17 19:15 06/23/17 19:14 05/26/17 15:35 650 MG Al Hydrox/Mg Hydrox/Simethicone (Maalox Max Susp) 15 ml Q4H PRN PO 05/24/17 19:15 06/23/17 19:14 Magnesium Hydroxide (Milk Of Magnesia Susp) 30 ml Q6H PRN PO 05/24/17 19:15 06/23/17 19:14 Polyethylene (Miralax Powder Packet) 17 gm DAILY PRN PO 05/24/17 19:15 06/23/17 19:14 Ondansetron HCl (Zofran Inj) 4 mg Q6H PRN IV 05/24/17 19:15 06/23/17 19:14 Nicotine (Nicoderm Cq 21MG Patch) 1 patch QAM TD 05/25/17 09:00 06/24/17 08:59 05/28/17 08:35 1 PATCH Miscellaneous (Remove Nicoderm Patch) 1 ea HS N/A 05/24/17 21:00 06/23/17 20:59 05/27/17 21:03 1 EA Piperacillin Sod/ Tazobactam Sod 3.375 gm/Dextrose 115 ml @ 28.75 mls/ hr Q8H IV 05/24/17 22:00 06/03/17 21:59 05/28/17 14:19 28.75 MLS/HR Atorvastatin Calcium (Lipitor Tab) 10 mg DAILY PO 05/25/17 09:00 06/24/17 08:59 05/28/17 08:35 10 MG Ketorolac Tromethamine (Toradol Inj) 30 mg Q6H PRN IV 05/24/17 19:15 05/29/17 19:14 05/28/17 00:01 30 MG Sodium Chloride 1,000 ml @ 80 mls/hr [id number] IV 05/24/17 19:15 06/23/17 19:14 05/28/17 11:12 80 MLS/HR Insulin Glargine (Lantus Solostar Pen) 30 units HS SC 05/24/17 21:00 06/23/17 20:59 05/27/17 21:02 30 UNITS Insulin Aspart (novoLOG ASPART) SLIDING SCALE G... ACHS SC 05/24/17 21:00 06/23/17 20:59 05/28/17 13:02 18 UNITS Piperacillin Sod/ Tazobactam Sod (Consult) 1 ea UD PRN N/A 05/24/17 20:30 06/23/17 20:29 Glucose (Glucose 40% Gel) 15-30 GRAMS 15 GRAMS... UD PRN PO 05/24/17 20:30 06/23/17 20:29 Glucose (Glucose Chew Tab) 4-8 Tablets 4 Tabl... UD PRN PO 05/24/17 20:30 06/23/17 20:29 05/28/17 03:48 4 TABS Dextrose (Dextrose 50% 50ML Syringe) 25-50ML OF 50% DW IV FOR... UD PRN IV 05/24/17 20:30 06/23/17 20:29 Glucagon (Glucagon Inj) 1 mg UD PRN SQ 05/24/17 20:30 06/23/17 20:29 Vancomycin HCl (Consult) 1 ea UD PRN N/A 05/25/17 09:15 06/24/17 09:14 Tramadol HCl (Ultram Tab) 100 mg Q8 PO 05/26/17 22:00 06/25/17 21:59 05/28/17 14:17 100 MG Vancomycin HCl 1000 mg/Sodium Chloride 270 ml @ 125 mls/hr Q10H IV 05/27/17 18:00 06/03/17 17:59 05/28/17 14:27 125 MLS/HR Ioversol (Optiray 320) 100 ml UD PRN IV 05/28/17 08:45 06/01/17 08:44 Review of Systems Constitutional: + fever, + chills, + weakness Eyes: No problem reported ENT: No problem reported Respiratory: No problem reported Cardiovascular: No problem reported Abdomen: + pain Musculoskeletal: No problem reported Genitourinary - Female: No problem reported Neurologic: No problem reported Psychiatric: No problem reported Endocrine: No problem reported Hematologic / Lymphatic: No problem reported Integumentary: No problem reported Allergic / Immunologic: No problem reported Physical Exam Date Time Temp Pulse Resp B/P (MAP) Pulse Ox O2 Delivery O2 Flow Rate FiO2 05/28/17 08:19 93 Room Air 05/28/17 07:50 Room Air 05/28/17 07:30 36.6 72 16 96/63 (74) 93 Room Air 05/28/17 00:00 Room Air 05/27/17 23:15 36.7 71 16 127/83 (98) 97 Room Air 05/27/17 16:45 Room Air 05/27/17 14:56 36.5 76 18 115/79 (91) 96 Room Air General Appearance: WD/WN, no apparent distress Head: normocephalic, atraumatic Eyes: normal inspection, EOMI, sclerae normal ENT: normal ENT inspection, hearing grossly normal, pharynx normal Neck: supple, no adenopathy, thyroid normal, trachea midline Respiratory/Chest: chest non-tender, lungs clear, normal breath sounds, no respiratory distress Cardiovascular: regular rate, rhythm, no gallop, no murmur Abdomen/GI: normal bowel sounds, non tender, soft, no organomegaly Back: normal inspection, + left CVA tenderness Extremities/Musculoskelatal: normal inspection, no calf tenderness, non-tender Neurologic/Psych: alert, normal mood/affect, oriented x 3 Skin: normal color, warm/dry, no rash Lymphatic: no adenopathy Laboratory Results RUN DATE: 05/26/17 [facility] PAGE 1 RUN TIME: 722 Specimen Inquiry PATIENT: JAMAAL PRETT[place] [facility] [place] [id number] AGE/SX: 36/F ROOM: [facility] REG : 05/24/[address]: Gerald Duarte MD : 1980 BED: 2 DIS : STATUS: ADM IN TLOC: SPEC #: [id number] TAMARA: 05/24/17 STATUS: RES REQ #: [id number] RECD: 05/24/17-[address]: Redd Carrizales M.D. SOURCE: BLOOD ENTR: 05/24/17-[address]: Rosanna Doctor, Assigned [facility]: ORDERED: BLOOD CULTURE Procedure Result Verified Site BLD CULT Preliminary 05/26/17-721 NO GROWTH TO DATE. Last 24 Hours Test 05/27/17 17:05 05/27/17 17:16 05/27/17 20:48 05/28/17 03:44 Bedside Glucose 306 mg/dl 325 mg/dl 355 mg/dl 61 mg/dl Test 05/28/17 04:08 05/28/17 08:00 05/28/17 11:55 05/28/17 13:42 Bedside Glucose 122 mg/dl 276 mg/dl 386 mg/dl Vancomycin Level Trough 10.7 mcg/ml Patient Name: JAMAAL PRETTY Unit Number: [id number] Dictated: 05/28/171013 Transcribed: 05/28/171013 [facility] Printed Date/Time: [~ rep prt dt]/[~ rep prt tm] [~ rep ct labl] - [~ rep ct ivnm] [facility] [place] [address] Dictated: 05/28/171013 Transcribed: 05/28/171013 [facility] Printed Date/Time: [~ rep prt dt]/[~ rep prt tm] [~ rep ct labl] - [~ rep ct ivnm] ABD WITH IV AND ORAL CONT (CT) CLINICAL HISTORY: 36 years-old Female presenting with evaluate R kidney/retroperitoneal abscess/phlegmon. TECHNIQUE: Multidetector CT of the abdomen was performed after the administration of oral and intravenous contrast. IV contrast: 93 mL of Optiray 320. A dose lowering technique was used consistent with the principles of ALARA (as low as reasonably achievable). COMPARISON: 05/24/2017. CT DOSE (mGy.cm): The estimated cumulative dose is 197.17 mGycm. FINDINGS: Operating Manager topogram: Unremarkable. Lung bases: Slight interval increase in size of the small left pleural effusion. Interval increase in left basilar dependent and peribronchovascular consolidation. Minimal dependent opacities in the right lung likely atelectasis. Normal heart size. Liver: Normal morphology. Mild periportal edema grade no focal lesion. Patent hepatic vasculature. Biliary: Mild central biliary ductal prominence may be present. No intrahepatic biliary ductal dilatation. Nondistended. Slight prominence of the gallbladder wall, possibly due to underdistention. Pancreas: Atrophy of the pancreatic parenchyma. Spleen: Enlarged measuring 14 cm in maximal sagittal dimension. Adrenal glands: Normal. Kidneys and ureters: No change in focal region of cortical scarring in the posterior aspect of the interpolar region of the right kidney. Persistent heterogeneous hypoenhancement of the lateral aspect of the lower pole the left kidney adjacent to perinephric and posterior left perirenal inflammatory change. No hydronephrosis. No intrarenal abscess. Ureters poorly visualized. Bowel: Moderate stool burden throughout the normal caliber colon. Peritoneal cavity: No free fluid or intraperitoneal gas. Retroperitoneum: Decreased retroperitoneal inflammation in the left anterior and posterior pararenal spaces. No well-defined abscess. This appears to primarily be centered at the kidney rather than along the colon. Vasculature: Prominent perigastric collateral vessels. Aorta and IVC patent. Lymph nodes: No gross evidence of lymphadenopathy allowing for mesenteric infiltration. Abdominal wall: Normal. Musculoskeletal: Normal. IMPRESSION: 1. Decreased overall retroperitoneal inflammation in the left anterior and posterior pararenal spaces with focal region of hypoperfusion in the left kidney and associated perinephric inflammatory change. This is felt to most likely be due to an infectious etiology emanating from the kidney. No adjacent convincing evidence of colonic wall thickening to suggest colonic origin. Finding is most consistent with severe lobar nephronia. Less likely differential considerations include lymphomatous involvement. Continued imaging and clinical follow-up after antibiotics recommended. 2. Mild splenomegaly. 3. Mild periportal edema likely reactive. 4. Small left pleural effusion with extensive left lower lobe consolidation, most likely atelectasis although an infectious etiology cannot be excluded. Electronically signed by: Alfredo Ascencio M.D. 05/28/2017 10:25 AM Dictated Date/Time: 05/28/2017 10:14 AM The status of this report is Signed. Draft = Not yet reviewed or approved by Radiologist. Signed = Reviewed and approved by Radiologist. <AttendingPhy>Omero Catalan M.D.</AttendingPhy> <FamilyPhy>No Doctor, Assigned</FamilyPhy> <PrimaryPhy>No Doctor, Assigned</PrimaryPhy> <UnitNumber> [id number]</UnitNumber> <VisitNumber>[id number]</VisitNumber> <PatientName> JAMAAL PRETTY BELINDA</PatientName> <DateOfBirth>1980</DateOfBirth> < Location>[facility]</Location> <ServiceDate>05/24/17</ServiceDate> <MNE>ESINDI</MNE> <OrderingPhy>Arlene Fitzgerald PA-C</OrderingPhy> <OrderingPhyMNE>f rep ord dr laureano</OrderingPhyMNE> <DictatingPhyMNE>f rep dict dr laureano</DictatingPhyMNE > <CCListMNE>f rep ct mne</CCListMNE> <AdmittingPhyMNE>f pt admit dr laureano</ AdmittingPhyMNE> <AttendingPhyMNE>f pt attend dr laureano</AttendingPhyMNE> <ConsultingPhyMNE>f pt consult dr laureano</ConsultingPhyMNE> <FamilyPhyMNE>f pt fam dr laureano</FamilyPhyMNE> <OtherPhyMNE>f pt other dr laureano</OtherPhyMNE> < PrimaryPhyMNE>f pt prim care dr laureano</PrimaryPhyMNE> <ReferringPhyMNE>f pt referring dr laureano</ReferringPhyMNE> Assessment & Plan 36 yo female with H/O DM and IVDU, now with retroperitoneal phlegmon, likely from extension from left kidney infection. Worry about bacteremic episode given IVDU, but blood cultures remain negative so endocarditis seems unlikely. Although would usually give longer course of IV abx as outpatient, not good option given ongoing drug abuse. Would consider transition to oral abx tomorrow , and given h/o recurrent MRSA skin infections would consider combination of Bactrim and levofloxacin for 2-3 weeks, with f/u CT prior to D/c of antibiotics.
[2017-05-28 14:56] VITALS: BP 128/83; PULSE 71; TEMP 36.8; O2SAT 96
[2017-05-28] MEDS ORDERED: NICO21DI4 TD (15:06)
[2017-05-28] MEDS ORDERED: LEVO1TAB35 PO (15:06)
[2017-05-28] MEDS ORDERED: INSDGIPEN SC (15:06)
[2017-05-28] MEDS ORDERED: ULT50X PO (15:06)
[2017-05-28] MEDS ORDERED: SULF800T23 PO (15:06)
--- NOTE | 2017-05-28 15:25 | Discharge Instructions ---
Discharge Instructions Date of Service May 28, 2017. Admission Reason for Admission: Intra-Abdominal Abscess, Type 1 Diabetes Discharge Discharge Diagnosis / Problem: Left retroperitoneal kidney abscess Discharge Goals Goal(s): Decrease discomfort, Improve function, Increase independence, Improve disease control Activity Recommendations Activity Limitations: per Instructions/Follow-up section Lifting Limitations: no more than 25 pounds, gradually increase as tolerated Exercise/Sports Limitations: rest today, gradually increase as tolerated May Resume Sexual Activity: when tolerated Shower/Bathe: no limitations Driving or Machine Use: resume 3 days after discharge (after cleared by your PCP) . Instructions / Follow-Up Instructions / Follow-Up You were admitted to [facility] with abdominal pain and diagnosed with left retroperitoneal kidney abscess During your stay here you were treated with intravenous fluids, pain management , antiemetics and other supportive care. Imaging studies which were completed include CT of the abdomen on 05/24, and were abnormal initially showing the left retroperitoneal kidney abscess and surrounding area of inflammation. A repeat CT was completed on 05/28 and showed improvement. Follow up: You will need a follow up CT scan of the abdomen in 2 weeks, prior to the end of the antibiotic regimen you have been prescribed, to show further improvement And/Or resolution. Medications: - You have been prescribed two different antibiotics: Levaquin 750 mg daily x 3 weeks and Bactrim Ds 800/160 mg twice daily x 3 weeks. - Continue taking medications as prescribed. - Caution with taking multiple antiinflammatory medications at the same time for pain as this puts you at risk for stomach ulcers. - Pain control with Tramadol 100 mg every 4 hours as needed for pain Appointments: Follow up with your Primary Care Provider within 1 week. Follow up with Infectious disease with 2 weeks, with Dr. Richard. An appointment has been requested for you. DO NOT USE DRUGS!!! Current Hospital Diet Patient's current hospital diet: Diabetes Type 1 Diet Discharge Diet Recommended Diet: Diabetes Type 1 Diet Pending Studies Studies pending at discharge: no Laboratory Results Hemoglobin A1c Test 05/25/17 07:02 Range/Units Estimated Average Glucose 387 mg/dl Hemoglobin A1c 15.1 H 4.5-5.6 % Medical Emergencies . Who to Call and When: Medical Emergencies: If at any time you feel your situation is an emergency, please call 911 immediately. . Non-Emergent Contact Non-Emergency issues call your: Primary Care Provider Call Non-Emergent contact if: you have a fever, your pain is not controlled, your pain is worsening, your pain is unusual for you, your pain is concerning you, you have any medication questions . Past History Medical & Surgical History: (1) Retroperitoneal abscess (2) MRSA (methicillin resistant staph aureus) culture positive (3) Type 1 diabetes . "Provider Documentation" section prepared by Sally Fitzgerald. . VTE Core Measure Inpt VTE Proph given/why not?: [facility] [place] Drug Monitoring Program Search Results: patient reviewed within database
--- NOTE | 2017-05-28 15:37 | Discharge Summary ---
Discharge Summary Date of Service May 28, 2017. (Arlene Fitzgerald PA-C) Discharge Summary Admission Date: May 24, 2017 at 19:36 Discharge Date: May 28, 2017 Discharge Disposition: Home Principal Diagnosis: left retroperitoneal kidney abscess Problems/Secondary Diagnoses: DM type I IV Drug abuse MRSA positive Tobacco Abuse Procedures: ADDENDUM ADDENDUM: In addition to the above findings the spleen is enlarged, measuring 16.7 cm in length. This is likely on a reactive basis. All additional findings are unchanged. Electronically signed by: Margarito Jacobs M.D. 05/24/2017 5:49 PM Dictated Date/Time: 05/24/2017 5:[address] SCAN OF THE ABDOMEN AND PELVIS WITH IV CONTRAST CLINICAL HISTORY: Epigastric abdominal pain. Left flank pain. Fever. Reported history of poorly controlled diabetes. COMPARISON STUDY: No priors. TECHNIQUE: Following the IV administration of 92 cc of Optiray 320, CT scan of the abdomen and pelvis is performed from the lung bases to the proximal femora. Images are reviewed in the axial, sagittal, and coronal planes. IV contrast was administered without complication. Automated dose control exposure was utilized. A dose lowering technique was utilized adhering to the principles of ALARA. CT DOSE: 251.05 mGy.cm FINDINGS: Lung bases: The heart is normal in size and without pericardial effusion. There are trace pleural effusions, left larger than right with bibasilar atelectasis. Liver: The contrast-enhanced liver is normal in size, contour, and attenuation. There is no intrahepatic biliary ductal dilatation. The hepatic veins and portal veins are patent. Gallbladder: Unremarkable. Spleen: Normal in size and attenuation. Pancreas: Unremarkable. Adrenal glands: Unremarkable. Kidneys and retroperitoneum: The contrast enhanced kidneys are normal in size and without hydronephrosis. The right kidney enhances homogeneously. There is heterogeneously diminished perfusion identified in the lower pole of left kidney. The remainder of the left kidney enhances homogeneously. There is extensive phlegmonous change identified in the left retroperitoneal space around the lower pole of the kidney, and between the left psoas muscle, the spleen, and the splenic flexure of the colon. There are small foci of indeterminant gas in the retroperitoneal space which may be extraluminal. There is a small crescentic fluid collection seen posterior to the lower pole the left kidney on image #124 which measures approximately 2.5 x 1 x 2.5 cm. The appearance is concerning for a small abscess. It is unclear if this originates from the splenic flexure of the colon or the left kidney. There is no convincing evidence of intramuscular abscess in the psoas. Abdominal vasculature: The abdominal aorta is normal in course and caliber. Bowel: There is moderate colonic fecal retention. No bowel obstruction is seen. As noted above, there is significant inflammatory change in the left retroperitoneal space which involves the splenic flecture. The splenic flexure appears thick-walled. See above for detailed discussion. The appendix is well-visualized and normal. Peritoneum: There is mild diffuse mesenteric edema. No intraperitoneal free air is seen in there is no abdominal ascites. Lymphadenopathy: None. Pelvic viscera: The bladder, uterus, and adnexa are normal as visualized. Skeletal structures: No lytic or blastic lesions are seen. IMPRESSION: 1. There is a large inflammatory process with significant inflammation/phlegmon identified in the left retroperitoneal space as detailed above which involves predominantly the lower pole of the left the kidney and the splenic flexure of the colon. The origin/etiology of this is unclear, and primary renal infection versus a colonic process such as perforated diverticulitis are the top differential considerations. Clinical correlation will be required and surgical consultation is advised. 2. There are foci of gas within the left retroperitoneal space which may be extraluminal. A small crescentic fluid collection is seen posterior to the lower pole of the left kidney and measures up to 2.5 cm. This likely represents a small abscess. 3. There is nonspecific mesenteric edema. No intraperitoneal free air is identified and there is no intraperitoneal fluid collection seen. 4. Small pleural effusions, left larger than right with associated atelectasis. Findings were discussed with Dr. Carrizales in the emergency department at the time of interpretation. Electronically signed by: Margarito Jacobs M.D. 05/24/2017 5:17 PM Dictated Date/Time: 05/24/2017 4:59 PM The status of this report is Signed. ABD WITH IV AND ORAL CONT (CT) CLINICAL HISTORY: 36 years-old Female presenting with evaluate R kidney/retroperitoneal abscess/phlegmon. TECHNIQUE: Multidetector CT of the abdomen was performed after the administration of oral and intravenous contrast. IV contrast: 93 mL of Optiray 320. A dose lowering technique was used consistent with the principles of ALARA (as low as reasonably achievable). COMPARISON: 05/24/2017. CT DOSE (mGy.cm): The estimated cumulative dose is 197.17 mGycm. FINDINGS: Design Architect topogram: Unremarkable. Lung bases: Slight interval increase in size of the small left pleural effusion. Interval increase in left basilar dependent and peribronchovascular consolidation. Minimal dependent opacities in the right lung likely atelectasis. Normal heart size. Liver: Normal morphology. Mild periportal edema grade no focal lesion. Patent hepatic vasculature. Biliary: Mild central biliary ductal prominence may be present. No intrahepatic biliary ductal dilatation. Nondistended. Slight prominence of the gallbladder wall, possibly due to underdistention. Pancreas: Atrophy of the pancreatic parenchyma. Spleen: Enlarged measuring 14 cm in maximal sagittal dimension. Adrenal glands: Normal. Kidneys and ureters: No change in focal region of cortical scarring in the posterior aspect of the interpolar region of the right kidney. Persistent heterogeneous hypoenhancement of the lateral aspect of the lower pole the left kidney adjacent to perinephric and posterior left perirenal inflammatory change. No hydronephrosis. No intrarenal abscess. Ureters poorly visualized. Bowel: Moderate stool burden throughout the normal caliber colon. Peritoneal cavity: No free fluid or intraperitoneal gas. Retroperitoneum: Decreased retroperitoneal inflammation in the left anterior and posterior pararenal spaces. No well-defined abscess. This appears to primarily be centered at the kidney rather than along the colon. Vasculature: Prominent perigastric collateral vessels. Aorta and IVC patent. Lymph nodes: No gross evidence of lymphadenopathy allowing for mesenteric infiltration. Abdominal wall: Normal. Musculoskeletal: Normal. IMPRESSION: 1. Decreased overall retroperitoneal inflammation in the left anterior and posterior pararenal spaces with focal region of hypoperfusion in the left kidney and associated perinephric inflammatory change. This is felt to most likely be due to an infectious etiology emanating from the kidney. No adjacent convincing evidence of colonic wall thickening to suggest colonic origin. Finding is most consistent with severe lobar nephronia. Less likely differential considerations include lymphomatous involvement. Continued imaging and clinical follow-up after antibiotics recommended. 2. Mild splenomegaly. 3. Mild periportal edema likely reactive. 4. Small left pleural effusion with extensive left lower lobe consolidation, most likely atelectasis although an infectious etiology cannot be excluded. Electronically signed by: Alfredo Ascencio M.D. 05/28/2017 10:25 AM Dictated Date/Time: 05/28/2017 10:14 AM The status of this report is Signed. Consultations: General surgery Urology Infectious disease (Arlene Fitzgerald, JACKSON) Medication Reconciliation New Medications: Levofloxacin (Levaquin) 750 Mg Tab 750 MG PO DAILY for 21 Days, #21 TAB Sulfa/Trimethoprim (Bactrim Ds 800MG/160MG) Tab 1 TAB PO BID for 21 Days, #42 TAB Nicotine (Nicoderm Cq) 21 Mg/24 Hr Dis 1 PATCH TD QAM for 14 Days, #14 PATCH 1 Refill Tramadol HCl (Tramadol HCl) 50 Mg Tab 100 MG PO Q8 for 7 Days, #42 TAB Changed Medications: Insulin Glargine (Lantus Solostar) 100 Unit/Ml Inj 30 UNIT SC QPM for 30 Days, #30 PEN (Changed from: Insulin Glargine (Lantus) 100 Unit/Ml Inj 20-22 Units SC QPM) Continued Medications: Atorvastatin (Lipitor) 10 Mg Tab 10 MG PO DAILY, TAB Etodolac (Etodolac) 400 Mg Tab 400 MG PO BID, TAB Etonogestrel (Nexplanon) 68 Mg Imp 68 MG IM [id number] Insulin Aspart (Novolog) 100 Units/Ml Inj 8-15 UNITS SQ TID SLIDING SCALE Nystatin (Nystatin Suspension) 1 Ml Susp 1 DOSE PO QID Discontinued Medications: Ibuprofen (Advil) 200 Mg Tab 400-600 MG PO Q6H PRN for Pain, TAB Discharge Exam Subjective Pt evaluation today including: conversation w/ patient, conversation w/ family , physical exam, chart review, lab review, review of studies Pain: Abdominal PO Intake: Good Voiding: no voiding problems The patient was seen and examined this morning. Pt reports still having some abdominal pain this morning, she is tolerating a diet and moving her bowels without difficulty. She denies nausea or vomiting. She has been ambulating about the room without difficulty. Pt is hopeful to go home prior to Sunday because it's her daughters birthday. Constitutional: No fever, No chills, No sweats Eyes: No redness, No discharge ENT: No nasal symptoms, No trouble swallowing Respiratory: No cough, No wheezing, No shortness of breath Cardiovascular: No chest pain, No palpitations Abdomen: + pain, No nausea, No vomiting, No diarrhea, No constipation Musculoskeletal: No joint pain, No muscle pain Female : No dysuria Endo: No fatigue Skin: No rash, No itch Objective Vital Signs Date Time Temp Pulse Resp B/P (MAP) Pulse Ox O2 Delivery O2 Flow Rate FiO2 05/28/17 08:19 93 Room Air 05/28/17 07:30 36.6 72 16 96/63 (74) 93 Room Air 05/28/17 00:00 Room Air 05/27/17 23:15 36.7 71 16 127/83 (98) 97 Room Air 05/27/17 16:45 Room Air 05/27/17 14:56 36.5 76 18 115/79 (91) 96 Room Air Physical Exam General Appearance: WD/WN, no apparent distress Eyes: PERRL, EOMI ENT: hearing grossly normal, pharynx normal Neck: supple, no JVD Respiratory/Chest: lungs clear, no respiratory distress, no accessory muscle use Cardiovascular: no murmur, + tachycardia (regular rate) Abdomen: soft, + pertinent finding (Slightly hypoactive bowel sounds, +minimal distension but appears the same as yesterday, +tenderness with generalized palpation.) Extremities: non-tender, no pedal edema, no calf tenderness Neurologic/Psychiatric: alert, oriented x 3 Skin: normal color, warm/dry, + pertinent finding (multiple tattoos) (Arlene Fitzgerald, JACKSON) Hospital Course History of Present Illness Source: patient, clinic records, hospital records Patient is a pleasant 36 y/o female, with PMHx of T1DM, dyslipidemia and tobacco abuse, who presented to the ED because of left lateral abdominal pain radiating to L flank region x3-4 weeks. +fever/chills. She has been taking Ibuprofen for her pain/fever, which does seem to help. She was seen by [facility] yesterday and was advised to come to ED for further evaluation. She was prescribed a medication, but cannot what the medication was. She was advised not to take Ibuprofen with the medication, but her pain was uncontrolled w/out it, so she continued taking Ibuprofen. She did not seek medical attention earlier because pain would come and go and was controlled with Ibuprofen. She has been eating and drinking OK. Patient denies any sweats, lightheadedness, dizziness, vision changes, CP, palpitations, edema, SOB, wheezing, cough, nausea, vomiting, diarrhea, urinary symptoms, melena, numbness/ tingling, weakness, muscle/joint pain, anxiety/depression, active bleeding, or new skin discoloration/changes. Patient's BSG was 412 in ED. When further questioning patient, she states, "I am a bad diabetic, that number is not uncommon for me." Physical Exam Vital Signs Date Time Temp Pulse Resp B/P (MAP) Pulse Ox O2 Delivery O2 Flow Rate FiO2 05/24/17 14:41 36.8 108 16 119/77 98 Room Air General Appearance: no apparent distress, + thin Head: normocephalic, atraumatic Eyes: normal inspection, PERRL ENT: hearing grossly normal Neck: no adenopathy Respiratory/Chest: lungs clear, no respiratory distress, no accessory muscle use Cardiovascular: regular rate, rhythm Abdomen/GI: normal bowel sounds, soft, + tenderness (ttp of LUQ) Back: + left CVA tenderness Extremities/Musculoskelatal: no calf tenderness, no pedal edema Neurologic/Psych: alert, oriented x 3, + pertinent finding (tearful/anxious) Skin: normal color, warm/dry, no rash Hospital Course: This is a 36 yo F with PMHx of diabetes mellitus type I, tobacco abuse, and hx of IVDA. Left kidney retroperitoneal abscess - Reviewed CT from 05/24 with radiologist due to question of etiology. There is only a 1" area in the L kidney which is fluid filled, and would be difficult to drain. The retroperitoneal phlegmon, area of inflammation however is larger and has the potential to turn into loculated vs nonloculated abscess. - Repeat CT of the abdomen with contrast today: 1. Decreased overall retroperitoneal inflammation in the left anterior and posterior pararenal spaces with focal region of hypoperfusion in the left kidney and associated perinephric inflammatory change. This is felt to most likely be due to an infectious etiology emanating from the kidney. No adjacent convincing evidence of colonic wall thickening to suggest colonic origin. Finding is most consistent with severe lobar nephronia. Less likely differential considerations include lymphomatous involvement. Continued imaging and clinical follow-up after antibiotics recommended. 2. Mild splenomegaly. 3. Mild periportal edema likely reactive. 4. Small left pleural effusion with extensive left lower lobe consolidation , most likely atelectasis although an infectious etiology cannot be excluded. - ID consulted - appreciate recs: recommend 2-3 weeks of levaquin and bactrim with repeat follow up CT prior to the end of antibiotic course. Follow up with ID in 2 weeks. - No leukocytosis, WBC =10.17, remains stable - VSS and afebrile - BCx and UCx from 05/24 negative - Appreciate general surgery and urology's input. - Continue zosyn and vanc day #4 - Analgesia with toradol Q6H prn and tramadol 100 mg TID prn for pain. - IVFs off on 05/27 DM I - Continue Lantus 30 U QHS, along with ISS with accuchecks ACHS and Novolog sliding scale of 8-15 U TID with meals. - Overnight blood glucose check was slightly low =61, although the patient was sleeping at this time. She was given 2 glucophage tablets and this subsequently increased glucose readings this morning. Resolved at this time. HLD - Cont atorvastatin 10 mg daily Tobacco abuse - Cessation encouraged at bedside Hx of IVDA - Pt is MRSA + which she reports is from previous tattoo on her back. - Counseling should be provided prior to discharge - No iv abx upon discharge although this normally be the ideal route per ID, will change to oral abx due to this social history. DVT ppx: Teds, scds, ambulatory CODE STATUS: FULL CODE Disposition: From home, discharge home today Total Time Spent: Greater than 30 minutes This includes examination of the patient, discharge planning, medication reconciliation, and communication with other providers. (Arlene Fitzgerald, JACKSON) PA Physician Supervision Note: I interviewed and examined the patient. Discussed with Arlene Fitzgerald PAC and agree with findings and plan as documented in the note. Any exceptions or clarifications are listed here: None next Patient feels markedly better repeat CT scan showed improvement of her nephric phlegmon. There is no drainable fluid collection. 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 (Arlene Fitzgerald PA-C) Follow-Up Follow up with your Primary Care Provider, Dr. Montes in [place], within 1 week. Follow up with ID within 2 weeks, an appointment has been requested for you. (Arlene Fitzgerald PA-C)
[2017-05-28 18:03] VITALS: BP 128/83; PULSE 71; TEMP 36.8; O2SAT 96
== END 2017-05-28 18:40 | disposition home or self-care (01) | DRG 371 ==
LOC: C.EDB 14:36 → C.MSN 19:36 → UNDOADMIN 19:36 → ENRESERV 19:41
PROVIDERS: ADMIT Family Medicine; ATTEND Internal Medicine
DX: K68.19 Other retroperitoneal abscess (principal); N15.1 Renal and perinephric abscess; E10.65 Type 1 diabetes mellitus with hyperglycemia; Z91.14 Patient's other noncompliance with medication regimen; D64.9 Anemia, unspecified; D47.3 Essential (hemorrhagic) thrombocythemia; E88.09 Other disorders of plasma-protein metabolism, not elsewhere classified; R74.8 Abnormal levels of other serum enzymes; E78.5 Hyperlipidemia, unspecified; F19.10 Other psychoactive substance abuse, uncomplicated; F17.200 Nicotine dependence, unspecified, uncomplicated; Z86.14 Personal history of Methicillin resistant Staphylococcus aureus infection; Z79.1 Long term (current) use of non-steroidal anti-inflammatories (NSAID); Z83.3 Family history of diabetes mellitus

== ENCOUNTER 2017-07-20 18:54 | Emergency (ER) | payer OTHER ==
[~2017-07-20] VITALS: Ht 162.6 cm; Wt 50.4 kg
[~2017-07-20 18:54] MED LIST: ATOR10TA88 PO; ETOD400T PO; ETON1IMP2 IM; NICO21DI4 TD; NVLG SQ; NYSS/ PO; ULT50X PO
[2017-07-20 18:59] VITALS: TEMP 36.3; Ht 162.6 cm; Wt 50.4 kg
[2017-07-20] MEDS ORDERED: SODIUM CHLORIDE 0.9% 1000ML 1,000 ML IV STA ×2 (19:53)
[2017-07-20] MEDS ORDERED: OPTIRAY 320 IV PRN (20:00)
[2017-07-20 20:11] LABS: BASO % 0.2 %; BASO ABS # 0.01 K/uL (0-0.2); COMPLETE YES; EOS % 4.7 %; HEMATOCRIT 42.7 % (37-47); IG% 0.2 %; LYMPH % 44.1 %; LYMPH ABS # 2.65 K/uL (1.2-3.4); MEAN CELL VOLUME 84.1 fL (80-100); MEAN CORPUSCULAR HEMOGLOBIN 28.9 pg (25-34); MEAN CORPUSCULAR HGB CONC 34.4 g/dl (32-36); MEAN PLATELET VOLUME 11.1 fL (7.4-10.4); NEUT % 46.8 %; PLATELET COUNT 232 K/uL (130-400); RED BLOOD COUNT 5.08 M/uL (4.2-5.4); WHITE BLOOD COUNT 6.01 K/uL (4.8-10.8)
[2017-07-20] MEDS ORDERED: INSDGI SC (20:26)
[2017-07-20 20:29] LABS: URINE APPEARANCE CLEAR (CLEAR); URINE BILIRUBIN NEG (NEG); URINE COLOR YELLOW; URINE NITRITE NEG (NEG); URINE SPECIFIC GRAVITY 1.035 (1.000-1.030); UROBILINOGEN NEG (NEG); ZZUR CULT IF INDIC CLEAN CATCH NO
[2017-07-20 20:32] LABS: MANUAL MICROSCOPIC REQUIRED? NO; REVIEW REQ? NO
[2017-07-20 20:45] LABS: ALKALINE PHOSPHATASE 66 U/L (45-117); ALT/SGPT 23 U/L (12-78); BLOOD UREA NITROGEN 15 mg/dl (7-18); BUN/CREATININE RATIO 16.1 (10-20); CALCIUM 8.7 mg/dl (8.5-10.1); CARBON DIOXIDE 30 mmol/L (21-32); CHLORIDE 96 mmol/L (98-107); CREATININE 0.95 mg/dl (0.60-1.20); GLUCOSE 423 mg/dl (70-99); SODIUM 130 mmol/L (136-145)
[2017-07-20 20:58] LABS: BETA-HYDROXYBUTYRATE 1.47 mg/dL (0.2-2.81)
--- NOTE | 2017-07-20 21:39 | DIAGNOSTIC IMAGING REPORT ---
CT SCAN OF THE ABDOMEN AND PELVIS WITHOUT CONTRAST CLINICAL HISTORY: Diarrhea and abdominal pain. History of renal abscess. COMPARISON STUDY: 05/28/2017 TECHNIQUE: CT scan of the abdomen and pelvis was performed from the lung bases to the proximal femurs. Images are reviewed in the axial, sagittal, and coronal planes. IV contrast was not administered for this examination. A dose lowering technique was utilized adhering to the principles of ALARA. CT DOSE: 246.47 mGy.cm FINDINGS: Lower chest: The heart is normal in size and configuration, without pericardial effusion. The lung bases and pleural spaces are clear. Liver: The unenhanced liver is normal in size, contour, and attenuation. There is no intrahepatic biliary ductal dilatation. Gallbladder: Unremarkable. Spleen: Normal in size and attenuation. Pancreas: Difficult to visualize given the positive intra-abdominal fat, and the lack of intravenous and orally administered contrast Adrenal glands: Unremarkable. Kidneys: No renal, ureteral, or bladder calculi are visualized. Renal assessment is limited given the lack of intravenous contrast. Bowel: Evaluation the bowel is markedly limited given the paucity of intra-abdominal fat and the lack of intravenous and oral contrast. There are no transition zones to indicate bowel obstruction. No definite evidence of acute appendicitis or diverticulitis. Possible left colonic wall thickening. A colitis most be considered. Peritoneum: There is no intraperitoneal free air or abdominal ascites. Vasculature: The abdominal aorta is normal in course and caliber. Adenopathy: None. Pelvic viscera: The bladder, and pelvic viscera are unremarkable. Skeletal structures: No destructive osseous lesions are seen. IMPRESSION: 1. Very limited study from a technical standpoint given the paucity of abdominal fat, and the lack of intravenous and orally administered contrast 2. No renal, ureteral, or bladder calculi identified 3. No evidence of bowel obstruction. No evidence of free air 4. Possible left colonic wall thickening. A colitis must be considered. Electronically signed by: Aidan Kendrick M.D. 07/20/2017 9:37 PM Dictated Date/Time: 07/20/2017 9:33 PM
[2017-07-20 21:59] LABS: POTASSIUM 3.9 mmol/L (3.5-5.1)
[2017-07-20 22:04] LABS: AST/SGOT 6 U/L (15-37)
[2017-07-21 00:31] VITALS: BP 94/62; PULSE 83; O2SAT 100
[2017-07-21] MEDS ORDERED: ONDA4TAB10 SL (00:31)
--- NOTE | 2017-07-21 00:34 | EMERGENCY ROOM VISIT NOTE ---
History Report prepared by Jem: Camille Elliott Under the Supervision of: Dr. Redd Carrizales M.D. First contact with patient: 19:33 Chief Complaint: VOMITING Stated Complaint: VOMIT, DIARRHEA EVERY FEW DAYS Nursing Triage Summary: pt c/o about every 10 days she gets sick with vomiting and diarrhea. has appt with pcp on sunday History of Present Illness The patient is a 36 year old female who presents to the Emergency Room with complaints of intermittent vomiting over the past month. She was recently treated for an intraabdominal abscess. She finished the antibiotics a couple weeks ago and is no longer having any related symptoms. Over the past month, she has been having a day of vomiting and diarrhea every 10 days. She has vomiting every 20 minutes for a couple hours which is followed by several episodes of diarrhea. She has experienced this 3 times in the past month. She experienced this today. She no longer has any nausea, vomiting, or diarrhea. She is just feeling fatigued now. She denies any fever, abdominal pain, melena, or hematochezia. Source of History: patient Onset: 1 month ago Position: other (global) Quality: other (vomiting) Timing: intermittent Associated Symptoms: + nausea (resolved), + diarrhea (resolved), + fatigue, No fevers, No abdominal pain, No melena, No hematochezia Review of Systems See HPI for pertinent positives and negatives. A total of ten systems were reviewed and were otherwise negative. Past Medical & Surgical Medical Problems: (1) MRSA (methicillin resistant staph aureus) culture positive (2) Retroperitoneal abscess (3) Type 1 diabetes Social History Problems: (1) Drug abuse, IV Family History Diabetes mellitus Social History Smoking Status: Current Every Day Smoker Marital Status: single Housing Status: lives with family Occupation Status: employed Current/Historical Medications Scheduled Atorvastatin (Lipitor), 10 MG PO DAILY Etonogestrel (Nexplanon), 68 MG IM [id number] Insulin Aspart (Novolog), 8-15 UNITS SQ TID Insulin Glargine (Lantus), 30 UNITS SC QPM Nicotine (Nicoderm Cq), 1 PATCH TD QAM Ondasetron Odt (Zofran Odt), 4 MG SL Q6H Allergies Coded Allergies: Iodine (Verified Allergy, Severe, RASH, 07/20/17) IV IODINE Physical Exam Vital Signs Date Time Temp Pulse Resp B/P (MAP) Pulse Ox O2 Delivery O2 Flow Rate FiO2 07/21/17 00:31 83 94/62 100 Room Air 07/20/17 22:22 93 92/53 99 Room Air 07/20/17 20:14 85 07/20/17 20:10 84 18 100/73 99 Room Air 07/20/17 18:59 36.3 103 18 92/69 99 Room Air Physical Exam GENERAL: Awake, alert, fatigued-appearing, in no acute distress HENT: Normocephalic, atraumatic. Dry mucous membranes. EYES: Normal conjunctiva. Sclera non-icteric. NECK: Supple. No nuchal rigidity. FROM. No JVD. RESPIRATORY: Clear to auscultation. CARDIAC: Regular rate, normal rhythm. Extremities warm and well perfused. Pulses equal. ABDOMEN: Soft, non-distended. No tenderness to palpation. No rebound or guarding. No masses. RECTAL: Deferred. MUSCULOSKELETAL: Chest examination reveals no tenderness. The back is symmetrical on inspection without obvious abnormality. There is no CVA tenderness to palpation. No joint edema. LOWER EXTREMITIES: Calves are equal size bilaterally and non-tender. No edema. No discoloration. NEURO: Normal sensorium. No sensory or motor deficits noted. SKIN: No rash or jaundice noted. Medical Decision & Procedures ER Provider Diagnostic Interpretation: Radiology results as stated below per my review and radiologist interpretation: CT SCAN OF THE ABDOMEN AND PELVIS WITHOUT CONTRAST CLINICAL HISTORY: Diarrhea and abdominal pain. History of renal abscess. COMPARISON STUDY: 05/28/2017 TECHNIQUE: CT scan of the abdomen and pelvis was performed from the lung bases to the proximal femurs. Images are reviewed in the axial, sagittal, and coronal planes. IV contrast was not administered for this examination. A dose lowering technique was utilized adhering to the principles of ALARA. CT DOSE: 246.47 mGy.cm FINDINGS: Lower chest: The heart is normal in size and configuration, without pericardial effusion. The lung bases and pleural spaces are clear. Liver: The unenhanced liver is normal in size, contour, and attenuation. There is no intrahepatic biliary ductal dilatation. Gallbladder: Unremarkable. Spleen: Normal in size and attenuation. Pancreas: Difficult to visualize given the positive intra-abdominal fat, and the lack of intravenous and orally administered contrast Adrenal glands: Unremarkable. Kidneys: No renal, ureteral, or bladder calculi are visualized. Renal assessment is limited given the lack of intravenous contrast. Bowel: Evaluation the bowel is markedly limited given the paucity of intra-abdominal fat and the lack of intravenous and oral contrast. There are no transition zones to indicate bowel obstruction. No definite evidence of acute appendicitis or diverticulitis. Possible left colonic wall thickening. A colitis most be considered. Peritoneum: There is no intraperitoneal free air or abdominal ascites. Vasculature: The abdominal aorta is normal in course and caliber. Adenopathy: None. Pelvic viscera: The bladder, and pelvic viscera are unremarkable. Skeletal structures: No destructive osseous lesions are seen. IMPRESSION: 1. Very limited study from a technical standpoint given the paucity of abdominal fat, and the lack of intravenous and orally administered contrast 2. No renal, ureteral, or bladder calculi identified 3. No evidence of bowel obstruction. No evidence of free air 4. Possible left colonic wall thickening. A colitis must be considered. Electronically signed by: Aidan Kendrick M.D. 07/20/2017 9:37 PM Dictated Date/Time: 07/20/2017 9:33 PM Laboratory Results 07/20/17 19:50 Red Blood Count 5.08, Mean Corpuscular Volume 84.1, Mean Corpuscular Hemoglobin 28.9, Mean Corpuscular Hemoglobin Concent 34.4, Mean Platelet Volume 11.1, Neutrophils (%) (Auto) 46.8, Lymphocytes (%) (Auto) 44.1, Monocytes (%) (Auto) 4.0, Eosinophils (%) (Auto) 4.7, Basophils (%) (Auto) 0.2, Neutrophils # (Auto) 2.82, Lymphocytes # (Auto) 2.65, Monocytes # (Auto) 0.24, Eosinophils # (Auto) 0.28, Basophils # (Auto) 0.01 07/20/17 19:50 07/20/17 21:32 Test 07/20/17 19:50 07/20/17 20:10 07/20/17 20:24 07/20/17 21:32 White Blood Count 6.01 K/uL (4.8-10.8) Red Blood Count 5.08 M/uL (4.2-5.4) Hemoglobin 14.7 g/dL (12.0-16.0) Hematocrit 42.7 % (37-47) Mean Corpuscular Volume 84.1 fL (80-100) Mean Corpuscular Hemoglobin 28.9 pg (25-34) Mean Corpuscular Hemoglobin Concent 34.4 g/dl (32-36) Platelet Count 232 K/uL (130-400) Mean Platelet Volume 11.1 fL (7.4-10.4) Neutrophils (%) (Auto) 46.8 % Lymphocytes (%) (Auto) 44.1 % Monocytes (%) (Auto) 4.0 % Eosinophils (%) (Auto) 4.7 % Basophils (%) (Auto) 0.2 % Neutrophils # (Auto) 2.82 K/uL (1.4-6.5) Lymphocytes # (Auto) 2.65 K/uL (1.2-3.4) Monocytes # (Auto) 0.24 K/uL (0.11-0.59) Eosinophils # (Auto) 0.28 K/uL (0-0.5) Basophils # (Auto) 0.01 K/uL (0-0.2) RDW Standard Deviation 51.2 fL (36.4-46.3) RDW Coefficient of Variation 16.6 % (11.5-14.5) Immature Granulocyte % (Auto) 0.2 % Immature Granulocyte # (Auto) 0.01 K/uL (0.00-0.02) Anion Gap 5.0 mmol/L (3-11) Est Creatinine Clear Calc Drug Dose 65.8 ml/min Estimated GFR () 89.9 Estimated GFR (Non- 77.6 BUN/Creatinine Ratio 16.1 (10-20) Calcium Level 8.7 mg/dl (8.5-10.1) Total Bilirubin 0.5 mg/dl (0.2-1) Alanine Aminotransferase (ALT/SGPT) 23 U/L (12-78) Alkaline Phosphatase 66 U/L (45-117) Total Protein 7.9 gm/dl (6.4-8.2) Albumin 3.6 gm/dl (3.4-5.0) Lipase 41 U/L (73-393) Beta-Hydroxybutyric Acid 1.47 mg/dL (0.2-2.81) Urine Color YELLOW Urine Appearance CLEAR (CLEAR) Urine pH 5.0 (4.5-7.5) Urine Specific [place] 1.035 (1.000-1.030) Urine Protein NEG (NEG) Urine Glucose (UA) 3+ (NEG) Urine Ketones NEG (NEG) Urine Occult Blood NEG (NEG) Urine Nitrite NEG (NEG) Urine Bilirubin NEG (NEG) Urine Urobilinogen NEG (NEG) Urine Leukocyte Esterase NEG (NEG) Urine Test NEG (NEG) Lactic Acid Level 3.5 mmol/L (0.4-2.0) Direct Bilirubin < 0.1 mg/dl (0-0.2) Aspartate Amino Transf (AST/SGOT) 6 U/L (15-37) Test 07/20/17 22:21 07/20/17 23:29 Bedside Glucose 323 mg/dl (70-90) Bedside Lactic Acid Venous 1.89 mmol/L (0.90-1.70) Laboratory results reviewed by me Medications Administered Medications (Trade) Dose Ordered Sig/Jimy Route Start Time Stop Time Status Last Admin Dose Admin Sodium Chloride 1,000 ml @ 999 mls/hr Q1H1M STAT IV 07/20/17 19:53 07/20/17 20:53 DC 07/20/17 20:05 999 MLS/HR Sodium Chloride 1,000 ml @ 999 mls/hr Q1H1M STAT IV 07/20/17 19:53 07/20/17 20:53 DC 07/20/17 20:05 999 MLS/HR ED Course 1950: The patient was evaluated in room C3. A complete history and physical exam was performed. 1952: NSS 1000 ml @ 999 mls/hr IV, NSS 1000 ml @ 999 mls/hr IV. 2137: I reevaluated the patient. I updated her on the results. 0000: Insulin Aspart 6 units SC. 0010: I reevaluated the patient. I discussed results and discharge instructions : She verbalized understanding and agreement. The patient is ready for discharge. Medical Decision I reviewed the patient's past medical history, medications, and the nursing notes as described above. Differential diagnosis: gastroenteritis, C diff, colitis, diverticulitis, UTI, pyelonephritis, intraabdominal abscess recurrence. The patient is a 36-year-old woman with a past medical history of renal abscess since emergency Department with intermittent diarrhea with nausea and vomiting for the past several weeks per history of present illness. The patient is fatigued appearing but in no acute distress. He is afebrile with stable vital signs. Abdomen is soft nontender nondistended. Labs notable for an initial lactate of 3.5 the setting of a blood glucose in the 400s. However no anion gap. BHB marginally elevated to 1.7. Given the patient appeared clinically dry she was given 2 L of IV fluids with repeat glucose in the 300s and lactate cleared to within normal limits. CT abdomen was done and what limited by no contrast did show findings that could be consistent with colitis. Given recent heavy antibiotic use in the setting of her prior abscess, antibiotics were deferred at this time we'll proceed with diet modification and bowel rest with plan for GI follow-up. He was sent however stool sample was well-formed and did not meet criteria for testing. Findings and plan for follow-up reviewed with patient. Patient agreeable and d/c'd per discharge instructions. Medication Reconcilliation Current Medication List: was personally reviewed by me Blood Pressure Screening Patient's blood pressure: Normal blood pressure Blood pressure disposition: Did not require urgent referral Impression Primary Impression: Colitis, acute Additional Impressions: Dehydration Hyperglycemia Scribe Attestation The scribe's documentation has been prepared under my direction and personally reviewed by me in its entirety. I confirm that the note above accurately reflects all work, treatment, procedures, and medical decision making performed by me. Departure Information Dispostion Home / Self-Care Prescriptions Ondasetron Odt (ZOFRAN ODT) 4 Mg Tab 4 MG SL Q6H for Nausea, #6 TAB Prov: Redd Carrizales M.D. 07/21/17 Referrals Han Ware D.O. (PCP) Adryan Loaiza D.O. Patient Instructions Colitis Ulcerative Lifestyle, ED Colitis Ulcerative, ED Diet Brat Expanded Ch, ED Food Poison Or Gastroenteritis, My [facility] Additional Instructions Please follow up with your primary care physician next week as scheduled for re- evaluation as well as with gastroenterology for evaluation. You have findings that are consistent with a colitis. Otherwise, your exam, CT scan, and lab results did not show signs of an emergent condition at this time. Drink plenty of fluids to ensure hydration. Zofran as needed for nausea. Brat diet Return to the emergency department for worsening symptoms as described in the accompanying instructions. Problem Qualifiers
[2017-07-21] MEDS ORDERED: INSULIN ASPART 100 UNITS/ML 3 ML PEN SC SCH (07:00)
== END 2017-07-21 00:42 | disposition home or self-care (01) ==
LOC: C.EDB 18:55 → C.EDC 07-21 00:42
DX: K52.9 Noninfective gastroenteritis and colitis, unspecified (principal); E86.0 Dehydration; R73.9 Hyperglycemia, unspecified; E10.9 Type 1 diabetes mellitus without complications; Z83.3 Family history of diabetes mellitus; F17.200 Nicotine dependence, unspecified, uncomplicated; Z79.4 Long term (current) use of insulin

== ENCOUNTER 2017-12-15 14:17 | Emergency (ER) | payer OTHER ==
[~2017-12-15] VITALS: Ht 162.6 cm; Wt 56.0 kg
[~2017-12-15 14:17] MED LIST changes: -ATOR10TA88 PO; -ETOD400T PO; -ETON1IMP2 IM; +INSDGI SC; -NVLG SQ; -NYSS/ PO; +ONDA4TAB10 SL; -ULT50X PO
[2017-12-15 14:24] VITALS: TEMP 36.7; Ht 162.6 cm; Wt 56.0 kg
[2017-12-15] MEDS ORDERED: MoRPHine SULFATE 4 MG/ML 1 ML CARP\\VIAL IV STA ×2 (14:35→16:05)
[2017-12-15] MEDS ORDERED: SODIUM CHLORIDE 0.9% 1000ML 1,000 ML IV STA (14:35)
[2017-12-15] MEDS ORDERED: DiphenhydrAMINE HCL 50 MG/ML VIAL IV STA (14:35)
[2017-12-15 15:02] LABS: BASO % 0.1 %; BASO ABS # 0.01 K/uL (0-0.2); EOS % 1.4 %; HEMATOCRIT 40.8 % (37-47); HEMOGLOBIN 14.7 g/dL (12.0-16.0); IG# 0.01 K/uL (0.00-0.02); LYMPH % 19.9 %; LYMPH ABS # 1.38 K/uL (1.2-3.4); MEAN CORPUSCULAR HEMOGLOBIN 30.6 pg (25-34); MONO % 7.9 %; MONO ABS # 0.55 K/uL (0.11-0.59); NEUT % 70.6 %; NEUT ABS # 4.87 K/uL (1.4-6.5); PLATELET COUNT 212 K/uL (130-400); RED CELL DISTRIBUTION WIDTH CV 12.4 % (11.5-14.5); RED CELL DISTRIBUTION WIDTH SD 38.5 fL (36.4-46.3); WHITE BLOOD COUNT 6.92 K/uL (4.8-10.8)
[2017-12-15 15:21] LABS: ALBUMIN 3.4 gm/dl (3.4-5.0); CALCIUM 8.5 mg/dl (8.5-10.1); CREATININE 0.84 mg/dl (0.60-1.20); POTASSIUM 3.6 mmol/L (3.5-5.1)
[2017-12-15 15:23] LABS: TOTAL PROTEIN 7.4 gm/dl (6.4-8.2)
[2017-12-15] MEDS ORDERED: ATOR10TA82 PO (15:30)
[2017-12-15] MEDS ORDERED: ETON1IMP2 IM (15:30)
[2017-12-15] MEDS ORDERED: NVLG SQ (15:30)
[2017-12-15] MEDS ORDERED: SUBOXONE PO (15:40)
[2017-12-15] MEDS ORDERED: INSU100I23 SQ (15:40)
[2017-12-15] MEDS ORDERED: HYDROmorphone INJ 1 MG/ML SYR IV STA (16:13)
--- NOTE | 2017-12-15 17:56 | DIAGNOSTIC IMAGING REPORT ---
ABD/PELVIS ORAL CONT ONLY CT DOSE: 254.24 mGy.cm HISTORY: Pain eval for colitis TECHNIQUE: Multiaxial CT images of the abdomen and pelvis were performed following the use of oral contrast. A dose lowering technique was utilized adhering to the principles of ALARA. COMPARISON STUDY: 07/20/2017 FINDINGS: Study is again compromised due to limited oral contrast and absence of intravenous contrast enhancement. Lung bases are clear. Configuration of liver spleen and pancreas are grossly unremarkable. The kidneys are negative for hydronephrosis. Spleen is uniform. Bowel pattern primarily in the left central abdominal region is difficult to define due to the lack of contrast in the vicinity. A sending colon is unremarkable as is the transverse colon. Trace free fluid within the pelvic cul-de-sac most likely physiologic. Bladder is midline. IMPRESSION: No acute process within the limitations of an absence of abdominal and pelvic fat as well as a limited oral contrast. No gross abnormalities appreciated. The above report was generated using voice recognition software. It may contain grammatical, syntax or spelling errors. Electronically signed by: Franco Zuniga M.D. 12/15/2017 5:55 PM Dictated Date/Time: 12/15/2017 5:52 PM
[2017-12-15] MEDS ORDERED: ONDA4TAB10 SL (18:33)
[2017-12-15] MEDS ORDERED: HYOS1TAB PO (18:33)
[2017-12-15 19:20] VITALS: BP 112/72; PULSE 88; O2SAT 98
--- NOTE | 2017-12-15 19:59 | EMERGENCY ROOM VISIT NOTE ---
History Report prepared by Jem: Omero Segura Under the Supervision of: Dr. Omero Thomas M.D. First contact with patient: 14:29 Chief Complaint: ABDOMINAL PAIN Stated Complaint: ABDOMINAL PAIN,VOMITING,BLOOD IN STOOL Nursing Triage Summary: pt reports she insulin dependent diabetic on sunday started vomiting and having diarrhea . thinks she was in diabetic ketoacidosis. has not been able to go to bathroom right for about 1 year feels something when having sex. blood sugar not checked today. pt c/o abd pain today History of Present Illness The patient is a 37 year old female who presents to the Emergency Room with complaints of worsening abdominal pain that began 5 days ago. She states that the pain is located in the middle of her abdomen. She has associated symptoms of vomiting, diarrhea, and hematochezia. She describes the pain as the worst gas pain in her life. She states that the blood in her stool is bright red. Patient adds that her boyfriend found a lump in her rectum a week ago that was causing her constipation. She states that the lump came out a week ago. She states that the lump was "probably in there for a year". Patient states that she had diabetic ketoacidosis 5 days ago. She states that her sugars were "in the 500's". She states that the DKA resolved a couple of days ago. She adds that she did not come into the ER for the DKA because she typically "just lets it run its course". Patient states that she did not check her sugars this morning. Patient denies any recent fevers or problems urinating. She denies any recent antibiotic use or foreign travel. Source of History: patient Onset: 5 days ago Position: abdomen (Middle) Symptom Intensity: severe Quality: other (Gas-like) Timing: worsening Modifying Factors (Relieving): other (None) Associated Symptoms: + vomiting, + hematochezia, + diarrhea, No fevers, No urinary symptoms Note: Patient has gas. Review of Systems See HPI for pertinent positives & negatives. A total of 10 systems reviewed and were otherwise negative. Past Medical & Surgical Medical Problems: (1) MRSA (methicillin resistant staph aureus) culture positive (2) Retroperitoneal abscess (3) Type 1 diabetes Social History Problems: (1) Drug abuse, IV Family History Diabetes mellitus Social History Smoking Status: Current Every Day Smoker Marital Status: single Housing Status: lives with family Occupation Status: employed Current/Historical Medications Scheduled Atorvastatin (Lipitor), 10 MG PO DAILY Etonogestrel (Nexplanon), 68 MG IM [id number] Insulin Aspart (Novolog), UNITS SQ AC Insulin Glargine (Basaglar Kwikpen), 32 UNITS SQ DAILY Ondasetron Odt (Zofran Odt), 4 MG SL Q6H [Suboxone], 1 DOSE PO DAILY Scheduled PRN Hyoscyamine Sulfate (Levsin), 0.125 MG PO Q6 PRN for Pain Allergies Coded Allergies: Iodine (Verified Allergy, Severe, RASH, 07/20/17) IV IODINE Physical Exam Vital Signs Date Time Temp Pulse Resp B/P (MAP) Pulse Ox O2 Delivery O2 Flow Rate FiO2 12/15/17 19:20 88 16 112/72 98 12/15/17 18:37 88 16 110/76 98 Room Air 12/15/17 16:46 65 16 104/70 98 Room Air 12/15/17 15:15 72 18 116/73 100 Room Air 12/15/17 14:24 36.7 89 18 117/77 100 Room Air Physical Exam Constitutional: Vital signs reviewed. Eyes: Pupils are equal round reactive to light. Conjunctiva are noninjected. ENT: Pharynx is clear without erythema or exudate. Mucous membranes are slightly dry. Neck supple without meningeal signs. Respiratory: Clear to auscultation bilaterally. Breath sounds are equal bilaterally. Cardiovascular: Regular rate and rhythm. No rubs or gallops. GI: Soft, nondistended diffuse tenderness to palpation. Bowel sounds are present. : Dark blood in the vaginal vault. Cervix closed. No CMT no adnexal or uterine tenderness. Musculoskeletal: No peripheral edema. No CVA tenderness. Integumentary: No cyanosis. Neurological: The patient is awake and alert. No focal deficits. Psychiatric: Very anxious. Medical Decision & Procedures ER Provider Diagnostic Interpretation: Radiology results as stated below per my review and the radiologist's interpretation: ABD/PELVIS ORAL CONT ONLY CT DOSE: 254.24 mGy.cm HISTORY: Pain eval for colitis TECHNIQUE: Multiaxial CT images of the abdomen and pelvis were performed following the use of oral contrast. A dose lowering technique was utilized adhering to the principles of ALARA. COMPARISON STUDY: 07/20/2017 FINDINGS: Study is again compromised due to limited oral contrast and absence of intravenous contrast enhancement. Lung bases are clear. Configuration of liver spleen and pancreas are grossly unremarkable. The kidneys are negative for hydronephrosis. Spleen is uniform. Bowel pattern primarily in the left central abdominal region is difficult to define due to the lack of contrast in the vicinity. A sending colon is unremarkable as is the transverse colon. Trace free fluid within the pelvic cul-de-sac most likely physiologic. Bladder is midline. IMPRESSION: No acute process within the limitations of an absence of abdominal and pelvic fat as well as a limited oral contrast. No gross abnormalities appreciated. The above report was generated using voice recognition software. It may contain grammatical, syntax or spelling errors. Electronically signed by: Franco Zuniga M.D. 12/15/2017 5:55 PM Laboratory Results 12/15/17 14:50 Red Blood Count 4.80, Mean Corpuscular Volume 85.0, Mean Corpuscular Hemoglobin 30.6, Mean Corpuscular Hemoglobin Concent 36.0, Mean Platelet Volume 11.0, Neutrophils (%) (Auto) 70.6, Lymphocytes (%) (Auto) 19.9, Monocytes (%) (Auto) 7.9, Eosinophils (%) (Auto) 1.4, Basophils (%) (Auto) 0.1, Neutrophils # (Auto) 4.87, Lymphocytes # (Auto) 1.38, Monocytes # (Auto) 0.55, Eosinophils # (Auto) 0.10, Basophils # (Auto) 0.01 12/15/17 14:50 Test 12/15/17 14:50 12/15/17 15:44 12/15/17 18:28 White Blood Count 6.92 K/uL (4.8-10.8) Red Blood Count 4.80 M/uL (4.2-5.4) Hemoglobin 14.7 g/dL (12.0-16.0) Hematocrit 40.8 % (37-47) Mean Corpuscular Volume 85.0 fL (80-100) Mean Corpuscular Hemoglobin 30.6 pg (25-34) Mean Corpuscular Hemoglobin Concent 36.0 g/dl (32-36) Platelet Count 212 K/uL (130-400) Mean Platelet Volume 11.0 fL (7.4-10.4) Neutrophils (%) (Auto) 70.6 % Lymphocytes (%) (Auto) 19.9 % Monocytes (%) (Auto) 7.9 % Eosinophils (%) (Auto) 1.4 % Basophils (%) (Auto) 0.1 % Neutrophils # (Auto) 4.87 K/uL (1.4-6.5) Lymphocytes # (Auto) 1.38 K/uL (1.2-3.4) Monocytes # (Auto) 0.55 K/uL (0.11-0.59) Eosinophils # (Auto) 0.10 K/uL (0-0.5) Basophils # (Auto) 0.01 K/uL (0-0.2) RDW Standard Deviation 38.5 fL (36.4-46.3) RDW Coefficient of Variation 12.4 % (11.5-14.5) Immature Granulocyte % (Auto) 0.1 % Immature Granulocyte # (Auto) 0.01 K/uL (0.00-0.02) Anion Gap 10.0 mmol/L (3-11) Est Creatinine Clear Calc Drug Dose 80.0 ml/min Estimated GFR () 103.6 Estimated GFR (Non- 89.4 BUN/Creatinine Ratio 11.9 (10-20) Calcium Level 8.5 mg/dl (8.5-10.1) Total Bilirubin 0.4 mg/dl (0.2-1) Direct Bilirubin 0.1 mg/dl (0-0.2) Aspartate Amino Transf (AST/SGOT) 13 U/L (15-37) Alanine Aminotransferase (ALT/SGPT) 23 U/L (12-78) Alkaline Phosphatase 91 U/L (45-117) Total Protein 7.4 gm/dl (6.4-8.2) Albumin 3.4 gm/dl (3.4-5.0) Lipase 55 U/L (73-393) Beta-Hydroxybutyric Acid 7.46 mg/dL (0.2-2.81) Urine Color YELLOW Urine Appearance CLEAR (CLEAR) Urine pH 5.0 (4.5-7.5) Urine Specific [place] 1.017 (1.000-1.030) Urine Protein NEG (NEG) Urine Glucose (UA) 2+ (NEG) Urine Ketones 3+ (NEG) Urine Occult Blood 3+ (NEG) Urine Nitrite NEG (NEG) Urine Bilirubin NEG (NEG) Urine Urobilinogen NEG (NEG) Urine Leukocyte Esterase NEG (NEG) Urine WBC (Auto) 1-5 /hpf (0-5) Urine RBC (Auto) >30 /hpf (0-4) Urine Hyaline Casts (Auto) 1-5 /lpf (0-5) Urine Epithelial Cells (Auto) >30 /lpf (0-5) Urine Bacteria (Auto) NEG (NEG) Urine Test NEG (NEG) Date/Time Source Procedure Growth Status 12/15/17 18:28 Vaginal Swab Trichomonas Preparation - Final Complete Laboratory results as reviewed by me. Medications Administered Medications (Trade) Dose Ordered Sig/Jimy Route Start Time Stop Time Status Last Admin Dose Admin Morphine Sulfate (MoRPHine SULFATE INJ) 4 mg ONE STAT IV 12/15/17 14:35 12/15/17 14:38 DC 12/15/17 15:04 4 MG Sodium Chloride 1,000 ml @ 999 mls/hr Q1H1M STAT IV 12/15/17 14:35 12/15/17 15:35 DC 12/15/17 15:04 999 MLS/HR Diphenhydramine HCl (Benadryl Inj) 50 mg NOW STAT IV 12/15/17 14:35 12/15/17 14:38 DC 12/15/17 15:04 50 MG Hydromorphone HCl (Dilaudid Inj) 0.5 mg NOW STAT IV 12/15/17 16:13 12/15/17 16:15 DC 12/15/17 16:19 0.5 MG ED Course 1425: The patient was evaluated in room C6. A complete history and physical exam was performed. 1435: Benadryl Inj 50mg IV, Sodium Chloride 1000 ml @ 999 mls/hr IV, and Morphine Sulfate 4mg IV. 1601: I discussed the patient's results with her. She states that she is still having pain. 1605: Morphine Sulfate 4mg IV 1613: Dilaudid Inj 0.5 mg IV 1830: I performed a pelvic exam on the patient. The exam showed a small amount of vaginal blood which was dark in color. Exam showed no CMT or adnexal or uterine tenderness. 1842: Upon reevaluation, the patient appeared to have improvement of her symptoms. I discussed tonight's findings with her. She verbalized agreement of the treatment plan. She was discharged home. Medical Decision This is a 37-year-old female presents with abdominal pain. Differential diagnosis includes kidney stone, colitis, irritable bowel syndrome, inflammatory bowel disease, appendicitis, PID, ectopic , UTI, DKA. I did perform a limited focused review of portions of the patient's old chart on the electronic medical record. The patient has had no recent pertinent visits to this hospital. I did evaluate the patient as noted above. Patient is presenting with diffuse abdominal pain with vomiting and diarrhea. She states that she felt like she had DKA several days ago but it resolved on its own. On examination she has some diffuse tenderness throughout her abdomen. No involuntary guarding is noted. IV access was established. I did treat her with IV Benadryl and morphine. She was also given normal saline IV. The patient is on Suboxone and so required more analgesia. She was given Dilaudid 0.5 mg IV. I did order and personally review the patient's urine analysis as described above. I did order and review the patient's blood work as noted in the electronic medical record. Her white blood cell count is not elevated. She does have hyperglycemia but no signs of DKA. I did order a CT of the abdomen and pelvis. I did review the images myself as well as the radiology report as described above. There is no evidence of acute process in the abdomen or pelvis. I did perform pelvic examination as noted above. Cultures were sent. I did discuss the test results with the patient. She was advised to follow closely with her doctor. She is feeling better. She was given a prescription for Zofran and Levsin. [place] Drug Monitoring Program Search Results: patient reviewed within database Drug Monitoring Findings: Suboxone was last filled November 29. Medication Reconcilliation Current Medication List: was personally reviewed by me Blood Pressure Screening Patient's blood pressure: Normal blood pressure Blood pressure disposition: Did not require urgent referral Impression Primary Impression: Diffuse abdominal pain Additional Impressions: Vomiting and diarrhea Hyperglycemia Scribe Attestation The scribe's documentation has been prepared under my direct and personally reviewed by me in its entirety. I confirm that the note above accurately reflects all work, treatment, procedures, and medical decision making performed by me. Departure Information Dispostion Home / Self-Care Prescriptions Hyoscyamine Sulfate (Levsin) 0.125 Mg Tab 0.125 MG PO Q6 Y for Pain, #20 TAB Prov: Omero Thomas M.D. 12/15/17 Ondasetron Odt (ZOFRAN ODT) 4 Mg Tab 4 MG SL Q6H for Nausea, #10 TAB Prov: Omero Thomas M.D. 12/15/17 Referrals Han Ware D.O. (PCP) Forms Call Back Authorization, HOME CARE DOCUMENTATION FORM, IMPORTANT VISIT INFORMATION Patient Instructions ED Abdominal Pain Unkn Cause, My [facility] Additional Instructions You have been examined and treated today on an emergency basis only. This is not a substitute for, or an effort to provide, complete comprehensive medical care. It is impossible to recognize and treat all injuries or illnesses in a single emergency department visit. It is therefore important that you follow up closely with your physician. Call as soon as possible for an appointment. Return for worsening symptoms or if you develop fever or any other concerning symptoms. Problem Qualifiers
--- NOTE | 2017-12-18 18:12 | Pharmacy Progress Note ---
ED Pharmacist Culture FollowUp Date of Service: Dec 18, 2017. Gardnerella isolated from genital culture. Isolation does not always indicate infection. No clue cells seen, Gardnerella isolated in rare quantity, pelvic exam with no CMT and no discharge/odor noted. No intervention required. Case discussed with Dr. Wilson.
== END 2017-12-15 19:24 | disposition home or self-care (01) ==
LOC: C.EDB 14:18 → C.EDC 19:24
DX: R10.84 Generalized abdominal pain (principal); R11.2 Nausea with vomiting, unspecified; R19.7 Diarrhea, unspecified; R73.9 Hyperglycemia, unspecified; A49.02 Methicillin resistant Staphylococcus aureus infection, unspecified site; E10.9 Type 1 diabetes mellitus without complications; Z83.3 Family history of diabetes mellitus; F17.200 Nicotine dependence, unspecified, uncomplicated; Z79.4 Long term (current) use of insulin

== ENCOUNTER 2018-05-25 01:18 | Emergency (ER) | payer OTHER ==
[~2018-05-25] VITALS: Ht 162.6 cm; Wt 56.7 kg
[~2018-05-25 01:18] MED LIST changes: +ATOR10TA82 PO; +ETON1IMP2 IM; +HYOS1TAB PO; -INSDGI SC; +INSU100I23 SQ; -NICO21DI4 TD; +NVLG SQ; +SUBOXONE PO
[2018-05-25 01:22] VITALS: TEMP 36.7; Ht 162.6 cm; Wt 56.7 kg
[2018-05-25] MEDS ORDERED: LIDOCAINE/EPINEPH/TETRACAINE 1 EA SYR EXT STA (01:45)
[2018-05-25] MEDS ORDERED: CEFTRIAXONE SOD INJ 1 GM ADDVIAL IV STA (01:45)
[2018-05-25 02:26] LABS: BASO % 0.2 %; BASO ABS # 0.02 K/uL (0-0.2); EOS % 1.8 %; EOS ABS # 0.19 K/uL (0-0.5); HEMATOCRIT 38.8 % (37-47); HEMOGLOBIN 13.1 g/dL (12.0-16.0); IG# 0.01 K/uL (0.00-0.02); LYMPH % 12.5 %; MEAN CORPUSCULAR HEMOGLOBIN 27.7 pg (25-34); MEAN CORPUSCULAR HGB CONC 33.8 g/dl (32-36); MEAN PLATELET VOLUME 11.6 fL (7.4-10.4); MONO % 3.2 %; MONO ABS # 0.33 K/uL (0.11-0.59); NEUT % 82.2 %; NEUT ABS # 8.54 K/uL (1.4-6.5); PLATELET COUNT 206 K/uL (130-400); RED CELL DISTRIBUTION WIDTH SD 42.3 fL (36.4-46.3); WHITE BLOOD COUNT 10.39 K/uL (4.8-10.8)
[2018-05-25 02:47] LABS: CALCIUM 8.8 mg/dl (8.5-10.1); CREATININE 1.29 mg/dl (0.60-1.20); POTASSIUM 3.5 mmol/L (3.5-5.1)
[2018-05-25] MEDS ORDERED: BUPR8SUB19 SL (02:59)
[2018-05-25] MEDS ORDERED: SODIUM CHLORIDE 0.9% 1000ML 1,000 ML IV STA (03:36)
[2018-05-25] MEDS ORDERED: LIDOCAINE/EPINEPHRINE 1% 20 ML VIAL INFIL ONE (03:45)
[2018-05-25] MEDS ORDERED: SULFAMETHOXAZOLE/TRIMETHOPRIM DS 800/160MG TAB PO STA (04:12)
[2018-05-25 04:17] VITALS: BP 88/73; PULSE 88; O2SAT 98
[2018-05-25] MEDS ORDERED: SULF800T23 PO (04:43)
[2018-05-25] MEDS ORDERED: CEPH500C PO (04:43)
--- NOTE | 2018-05-25 04:44 | EMERGENCY ROOM VISIT NOTE ---
History First contact with patient: :27 Chief Complaint: BITE Stated Complaint: SWOLLEN/RED BUMP ON ARM FROM BITE History of Present Illness The patient is a 37 year old female who presents to the Emergency Room with complaints of an area of swelling on her right arm. The patient states that she believes she may have been bit by something 4 days ago. She has had any worsening area of swelling and pain of her right forearm. She states her symptoms have been significantly worse the past 2 days. She rates her discomfort as 7/10. She denies fevers. She does report a history of IV drug use but states she has not injected anything in several months. The patient is a diabetic. Review of Systems A complete 10 point review of systems was reviewed with the patient with pertinent positives and negatives as per history of present illness. All else were negative. Past Medical/Surgical History Medical Problems: (1) MRSA (methicillin resistant staph aureus) culture positive (2) Retroperitoneal abscess (3) Type 1 diabetes Social History Problems: (1) Drug abuse, IV Family History Diabetes mellitus Social History Smoking Status: Current Every Day Smoker Marital Status: single Housing Status: lives with family Occupation Status: employed Current/Historical Medications Scheduled Atorvastatin (Lipitor), 10 MG PO DAILY Buprenorphine Hcl (Subutex), 1.5 TAB SL DAILY Cephalexin Monohydrate (Keflex), 500 MG PO QID Etonogestrel (Nexplanon), 68 MG IM [id number] Insulin Aspart (Novolog), UNITS SQ AC Insulin Glargine (Basaglar Kwikpen), 32 UNITS SQ QPM Sulfa/Trimethoprim (Bactrim Ds 800MG/160MG), 1 TAB PO BID Physical Exam Vital Signs Date Time Temp Pulse Resp B/P (MAP) Pulse Ox O2 Delivery O2 Flow Rate FiO2 05/25/18 04:17 88 18 88/73 98 Room Air 05/25/18 03:15 91 18 89/54 99 Room Air 05/25/18 01:22 36.7 120 18 118/81 100 Room Air Physical Exam VITALS: Vitals are noted on the nurse's note and reviewed by myself. Vital signs stable. GENERAL: This is a 37-year-old female, in no acute distress, nondiaphoretic, well-developed well-nourished. SKIN: There is a large indurated area to the radial aspect of the right forearm. There is central fluctuance measuring approximately 3 cm. There is no pointing or drainage. HEAD: Normocephalic atraumatic. HEART: Regular rate and rhythm without murmurs gallops or rubs. LUNGS: Clear to auscultation bilaterally without wheezes, rales or rhonchi. MUSCULOSKELETAL: Full range of motion of the right wrist and all fingers. Radial pulse 2+. NEURO: Patient was alert and oriented to person place and time. Distal sensation intact over the right upper extremity. Medical Decision & Procedures Laboratory Results 05/25/18 02:10 Red Blood Count 4.73, Mean Corpuscular Volume 82.0, Mean Corpuscular Hemoglobin 27.7, Mean Corpuscular Hemoglobin Concent 33.8, Mean Platelet Volume 11.6, Neutrophils (%) (Auto) 82.2, Lymphocytes (%) (Auto) 12.5, Monocytes (%) (Auto) 3.2, Eosinophils (%) (Auto) 1.8, Basophils (%) (Auto) 0.2, Neutrophils # (Auto) 8.54, Lymphocytes # (Auto) 1.30, Monocytes # (Auto) 0.33, Eosinophils # (Auto) 0.19, Basophils # (Auto) 0.02 05/25/18 02:10 Test 05/25/18 02:10 White Blood Count 10.39 K/uL (4.8-10.8) Red Blood Count 4.73 M/uL (4.2-5.4) Hemoglobin 13.1 g/dL (12.0-16.0) Hematocrit 38.8 % (37-47) Mean Corpuscular Volume 82.0 fL (80-100) Mean Corpuscular Hemoglobin 27.7 pg (25-34) Mean Corpuscular Hemoglobin Concent 33.8 g/dl (32-36) Platelet Count 206 K/uL (130-400) Mean Platelet Volume 11.6 fL (7.4-10.4) Neutrophils (%) (Auto) 82.2 % Lymphocytes (%) (Auto) 12.5 % Monocytes (%) (Auto) 3.2 % Eosinophils (%) (Auto) 1.8 % Basophils (%) (Auto) 0.2 % Neutrophils # (Auto) 8.54 K/uL (1.4-6.5) Lymphocytes # (Auto) 1.30 K/uL (1.2-3.4) Monocytes # (Auto) 0.33 K/uL (0.11-0.59) Eosinophils # (Auto) 0.19 K/uL (0-0.5) Basophils # (Auto) 0.02 K/uL (0-0.2) RDW Standard Deviation 42.3 fL (36.4-46.3) RDW Coefficient of Variation 14.0 % (11.5-14.5) Immature Granulocyte % (Auto) 0.1 % Immature Granulocyte # (Auto) 0.01 K/uL (0.00-0.02) Anion Gap 11.0 mmol/L (3-11) Est Creatinine Clear Calc Drug Dose 52.1 ml/min Estimated GFR () 61.7 Estimated GFR (Non- 53.2 BUN/Creatinine Ratio 18.5 (10-20) Calcium Level 8.8 mg/dl (8.5-10.1) Medications Administered Medications (Trade) Dose Ordered Sig/Jimy Route Start Time Stop Time Status Last Admin Dose Admin Ceftriaxone Sodium (Rocephin Inj) 1 gm NOW STAT IV 05/25/18 01:45 05/25/18 01:46 DC 05/25/18 02:11 1 GM Tetracaine/ Epinephrine/ Lidocaine (L.e.t. Gel 4%/ 1:100/0.5%) 1 ea UD STAT EXT 05/25/18 01:45 05/25/18 01:46 DC 05/25/18 02:11 1 EA Lidocaine/ Epinephrine (Xylocaine/Epine 1% Inj) 20 ml ONE ONCE INFIL 05/25/18 03:45 05/25/18 03:46 DC 05/25/18 03:45 20 ML Sodium Chloride 1,000 ml @ 999 mls/hr Q1H1M STAT IV 05/25/18 03:36 05/25/18 04:36 DC 05/25/18 03:36 999 MLS/HR Trimethoprim/ Sulfamethoxazole (Septra Ds 800/ 160MG Tab) 1 tab NOW STAT PO 05/25/18 04:12 05/25/18 04:14 DC 05/25/18 04:28 1 TAB Procedure Verbal consent was obtained to perform the procedure. After saline and Betadine cleansing and 3 mL of 1% buffered lidocaine with epinephrine anesthesia , the abscess was incised with a number 11 scalpel blade. A large amount of purulent material was released with more expressed by pressure. A swab was obtained for culture. The abscess cavity was further probed with a needle city bus driver and the deep pocket expressed. The abscess cavity was then copiously irrigated with sterile saline under pressure. The area was then packed with plain packing. The area was cleaned with sterile saline and dressed with bacitracin and a bulky bandage. The patient tolerated the procedure well. Medical Decision Differential diagnosis includes abscess, cellulitis, sepsis, among others. The patient is a 37-year-old female who presents today complaining of infection of her right arm. Exam reveals a large abscess. I&D was performed as noted above. Labs revealed no leukocytosis. Patient was given a dose of IV Rocephin. Culture was obtained and is pending. Given the extent of surrounding cellulitis and patient's history of diabetes, she will be placed on both Bactrim and Keflex as an outpatient. She was advised to return here in 48 hours for packing removal. Based on the patient's presentation and work up, I feel the patient is stable for outpatient treatment. The patient was educated to return to the emergency department for any worsening of their current condition or new/concerning symptoms. She will follow up here in 48 hours. Medication Reconcilliation Current Medication List: was personally reviewed by me Blood Pressure Screening Patient's blood pressure: Low blood pressure (Appears to be patient's baseline based on previous visits) Impression Primary Impression: Abscess of forearm, right Departure Information Dispostion Home / Self-Care Condition GOOD Prescriptions Cephalexin Monohydrate (Keflex) 500 Mg Cap 500 MG PO QID for 10 Days, #40 CAP Prov: Tatum Blue PA-C 05/25/18 Sulfa/Trimethoprim (Bactrim Ds 800MG/160MG) Tab 1 TAB PO BID for 10 Days, #20 TAB Prov: Tatum Blue PA-C 05/25/18 Referrals Han Ware D.O. (PCP) Patient Instructions [facility] Additional Instructions You were seen in the Emergency Department for Incision and Drainage of a forearm abscess. You will NEED to return to the Emergency Department to have the packing removed/changed in 48 hours. This packing is NOT dissolvable and WILL need to be removed by a health care provider. Try to leave the packing in place until you return to the Emergency Department. You were prescribed Bactrim and Keflex to be taken as prescribed. Both of these medications are antibiotics. Stop these medications and contact a medical provider if you were to develop any significant adverse side effects including: wheezing, shortness of breath, passing out, vomiting, or a diffuse rash. Always take antibiotics as directed and COMPLETE the ENTIRE course regardless of the improvement of your symptoms. Proper wound care is essential for adequate wound healing and infection prevention. You can shower and clean the wound with soap and water. Do not scour over the wound. Pat dry with a towel. Do not submerse the wound (i.e. bathe or dish wash) until the sutures have been removed. You can use an antibiotic ointment with a dressing over the wound for the next 3-4 days. After this time you may leave the wound dry and open to the air. If crust develops over the wound you can use a Q-tip to apply a 1:1 peroxide:water solution to clean the wound. Look for signs of infection of the wound including: increased pain, swelling, foul discharge, streaking, or increased temperature. If any of these are noticed you should return to the Emergency Department for further assessment and treatment. As with any laceration you may have received nerve damage to the surrounding tissues. This damage may or may not be permanent. For pain control, you can use the following [id number] medicines (if >12 yo): - Regular strength (325mg/tab) Tylenol (acetaminophen) 2 tabs every 4-6 hours as needed. Do not exceed 12 tablets in a 24 hour period. Avoid taking more than 4 grams (4000 mg) of Tylenol per day. This includes any other sources of acetaminophen you may take on a regular basis. - Regular strength (200 mg/tab) Advil (ibuprofen) 1-2 tabs every 4-6 hours as needed. Do not exceed a dose of 3200 mg per day. Return to the emergency department if your symptoms worsen despite treatment course outlined above, specifically for worsening redness/swelling or fevers.
--- NOTE | 2018-05-25 07:40 | DIAGNOSTIC IMAGING REPORT ---
R FOREARM 2 VIEWS ROUTINE CLINICAL HISTORY: right forearm swelling/abscess, r/o foreign body COMPARISON: None. DISCUSSION: No fractures or dislocations are visualized. There are no erosive or destructive changes. There is focal soft tissue swelling involving the lower aspect of the the mid to distal forearm. No radiopaque foreign bodies are visualized. IMPRESSION: 1. Focal soft tissue swelling 2. No foreign bodies identified 3. No evidence of fracture Electronically signed by: Aidan Kendrick M.D. 05/25/2018 7:39 AM Dictated Date/Time: 05/25/2018 7:38 AM
--- NOTE | 2018-05-27 21:30 | Pharmacy Progress Note ---
ED Pharmacist Culture FollowUp Date of Service: May 27, 2018. Patient was sent home with a prescription for cephalexin, which should cover the Streptococcus intermedius growing from the patient's wound culture, although no sensitivities will be reported. Patient was also sent home with a prescription for Bactrim which will not cover this isolate. However, OK to continue at this time despite this as patient has a history of MRSA. Case discussed with Dr. Carrizales.
== END 2018-05-25 04:47 | disposition home or self-care (01) ==
LOC: C.EDB 01:19 → C.EDA 04:47
DX: L02.413 Cutaneous abscess of right upper limb (principal); E10.9 Type 1 diabetes mellitus without complications; Z86.14 Personal history of Methicillin resistant Staphylococcus aureus infection; F17.210 Nicotine dependence, cigarettes, uncomplicated; Z83.3 Family history of diabetes mellitus; Z79.4 Long term (current) use of insulin; Z79.899 Other long term (current) drug therapy

== ENCOUNTER 2018-10-07 12:16 | Inpatient (IN) ==
[2018-10-07] MEDS ORDERED: SODIUM CHLORIDE 0.9% 1000ML 1,000 ML IV ONE ×2 (12:26→12:29)
[2018-10-07] MEDS ORDERED: ONDANSETRON INJ 2 MG/ML 2 ML VIAL IV STA (12:29)
[2018-10-07 12:47] LABS: iSTAT Blood Urea Nitrogen 33 mg/dl (7-18); iSTAT Carbon Dioxide 20 mEq/l (24-31); iSTAT Glucose > 700 mg/dl (70-99); iSTAT Hemoglobin 11.6 g/dl (12.0-16.0); iSTAT Ionized Calcium 1.09 mmol/l (1.12-1.32)
[2018-10-07 12:48] LABS: Hematocrit (blood only) 33.1 % (37-47); Hemoglobin 10.5 g/dL (12.0-16.0); Mean Corpuscular Hgb Conc 31.7 g/dL (32-36); Mean Corpuscular Volume 84.7 fL (80-100); Red Blood Count 3.91 M/uL (4.2-5.4); White Blood Count 9.76 K/uL (4.8-10.8)
--- NOTE | 2018-10-07 12:57 | XRay Report ---
XR chest 1V portable CLINICAL HISTORY: Sepsis COMPARISON STUDY: No previous studies for comparison. FINDINGS: The heart is normal in size. There are bilateral airspace opacities with a nodular componen t. Given the history of sepsis, the findings are likely infectious/inflammatory. Radiographic follow- up is recommended.[ IMPRESSION: Bilateral pulmonary airspace opacities with a nodular component. Given the clinical histo ry, the findings are likely infectious/inflammatory. Radiographic follow-up is recommended. Electronically signed by: Aidan Kendrick M.D. 10/07/2018 12:55 PM
[2018-10-07 12:58] LABS: INR 1.4 (0.9-1.1); Partial Thromboplastin Ratio 1.2; Partial Thromboplastin Time 31.2 Seconds (21.0-31.0)
[2018-10-07] MEDS ORDERED: PIPERACILL/TAZOBAC CONSULT ACTIVE PRN ×2 (13:00→21:22)
[2018-10-07] MEDS ORDERED: PIPERACILLIN/TAZOBACTAM 4.5 GM/120 ML BAG IV ONE ×2 (13:00→21:30)
[2018-10-07] MEDS ORDERED: VANCOMYCIN CONSULT ACTIVE PRN ×2 (13:00→21:22)
[2018-10-07] MEDS ORDERED: VANCOMYCIN HCL IV ONE (13:00)
[2018-10-07] MEDS ORDERED: SODIUM CHLORIDE 0.9% IV ONE (13:00)
[2018-10-07 13:01] LABS: Albumin Globulin Ratio 0.4 (0.9-2); BUN Creatinine Ratio 21.4 (10-20); Bilirubin,Total 0.8 mg/dl (0.2-1); Calcium 8.1 mg/dl (8.5-10.1); Creatinine Clr Calc Pharmacy 36.3 ml/min; Est GFR (African American) 39.9; Est GFR (Non-African American) 34.4; Globulin 4.7 gm/dl (2.5-4.0); Potassium 5.3 mmol/L (3.5-5.1); Total Protein 6.7 gm/dl (6.4-8.2)
[2018-10-07 13:05] LABS: Basophils # (auto) 0.02 K/uL (0-0.2); Basophils % (auto) 0.2 %; Dohle Bodies 1+; Immature Granulocytes # (auto) 0.07 K/uL (0.00-0.02); Immature Granulocytes % (auto) 0.7 %; Lymphocytes # (auto) 0.72 K/uL (1.2-3.4); Lymphocytes % (auto) 7.4 %; Monocytes # (auto) 0.36 K/uL (0.11-0.59); Monocytes % (auto) 3.7 %; Neutrophils # (auto) 8.59 K/uL (1.4-6.5); Platelet Count 96 K/uL (130-400); Toxic Granulation 1+
[2018-10-07] MEDS ORDERED: VANCOMYCIN HCL 1,250 MG in SODIUM CHLORIDE 0.9% 250 ML IV STA (13:11)
[2018-10-07] MEDS ORDERED: DKA GOAL RANGE 150-250 mg/dl ONE ×2 (13:24→15:10)
[2018-10-07] MEDS ORDERED: SEVERE STRESS LEVEL ONE ×2 (13:24→15:00)
[2018-10-07] MEDS ORDERED: INSULIN REGULAR 250 UNITS in SODIUM CHLORIDE 0.9% 247.5 ML IV SCH ×2 (13:30→15:00)
[2018-10-07 13:40] LABS: HCO3 ABG 20 mmol/L (19-24); Oxygen Saturation ABG 86.8 % (90-95); PCO2 ABG 32 mmHg (35-46); PO2 ABG 54 mm/Hg (80-95); pH ABG 7.42 (7.35-7.45)
[2018-10-07] MEDS ORDERED: GLUCAGON FOR INJ 1 MG VIAL IM PRN ×2 (13:43→21:32)
[2018-10-07] MEDS ORDERED: CARBOHYDRATES FOR HYPOGLYCEMIA PO PRN (13:43)
[2018-10-07] MEDS ORDERED: DEXTROSE 50% 50 ML SYRINGE IV PRN ×2 (13:43→21:32)
[2018-10-07] MEDS ORDERED: GLUCOSE 10 TABS/TUBE PO PRN ×2 (13:43→21:32)
[2018-10-07] MEDS ORDERED: GLUCOSE 40% GEL 15 GM TUBE PO PRN ×2 (13:43→21:32)
[2018-10-07 13:44] LABS: Allen Test Pos (Pos)
[2018-10-07] MEDS ORDERED: NovoLIN-R BOLUS FROM BAG IV ONE (13:45)
[2018-10-07 13:57] LABS: Appearance Urine Clear (Clear); Bilirubin Urine Negative (Negative); Color Urine Yellow; Glucose Urine UA 3+ (Negative); Ketones Urine Trace (Negative); Leukocyte Esterase Urine Negative (Negative); Nitrite Urine Negative (Negative); Protein Urine Negative (Negative); Specific Gravity Urine 1.029 (1.000-1.030); Urobilinogen Urine Negative (Negative)
[2018-10-07] MEDS: SODIUM CHLORIDE 0.9% 1000ML 1,000 ML IV SCH ×2 (13:57→15:42)
[2018-10-07 14:18] LABS: Epithelial Cell Urine Auto 0-5 /lpf (0-5)
[2018-10-07 14:19] LABS: Cast Urine Automated 0 /lpf (0-5)
[2018-10-07 14:20] LABS: Amorphous Sediment Urine Present (None Prsent); Bacteria Urine Automated 1+ (Negative)
[2018-10-07] MEDS ORDERED: ONDANSETRON INJ 2 MG/ML 2 ML VIAL IV PRN (15:00)
[2018-10-07] MEDS ORDERED: PHARMACY GLYCEMIC MGMT CONSULT STA (15:00)
[2018-10-07] MEDS ORDERED: POLYETHYLENE (MIRALAX) 17 GM PACK PO PRN (15:00)
[2018-10-07] MEDS ORDERED: DC ALL PREVIOUSLY ORDERED DIABETES MEDS ONE (15:10)
--- NOTE | 2018-10-07 15:33 | History & Physical Report ---
Date of Service October 07, 2018 Assessment & Plan (1) Type 1 diabetes: Princess aKtz is a 37 year old woman with a history of IV drug use who presents today with markedly polyuria, poor diabetes control, and intense pain with multiple foci. DKA Blood sugar 1220 on admission Causing extreme dehydration Given 2 L normal saline in ER Started DKA protocol with NSS 500 ml/hr and insulin to be titrated to target blood sugar Protocol in place to add potassium when levels become lower than 5.3 and dextrose when in target blood sugar Will check BMP q2h and correct as needed Hyponatremia Likely pseudohyponatremia secondary to dilution from extreme hyperglycemia Corrected sodium 140's Should trend upwards with fluid and insulin therapy Hyperkalemia Secondary to extracellular shift. Should resolve with NSS and insulin Will continue to monitor potassium levels q2h so we can add K to hydration regimen as it starts to lower (Order already in) Extreme Multifocal Pain Opiate withdrawal 2/2 pneumonia/infection Morphine 2mg q4h for pain control Will continue to monitor for signs of infection Tachypnoea possible pneumonia Treating possible pneumonia with Vanc and Zosyn Will get chest CT tomorrow Anemia Hemoglobin 10.5 on presentation down from 14.7 at baseline No history of GI bleed given but can't rule it out especially with large quantity of NSAID use Will continue to monitor (FOBT and CBC in morning) Diabetes Will encourage patient to seek outpatient follow up and improve diabetes control A1C level pending IV drug use Will clinical mental health counselor patient on IV drug use cessation options. Maybe hospitalization will be shock patient needs to make a change DVT ppx No DVT ppx at this time with GI bleed concern Will reevaluate tomorrow COde: Full Code Diet: liquid Dispo: Tele (2) MRSA (methicillin resistant staph aureus) culture positive: (3) Abscess of forearm, right: (4) Drug abuse, IV: (5) Hyperglycemia: (6) Retroperitoneal abscess: History of Present Illness Chief Complaint: Princess Katz is a 37 year old woman with a past medical history of type I diabetes and a history of IV drug abuse. She currently is presenting with a 3 day history of worsening pain in her right shoulder, left wrist, left and right lower extremities and right breast and worsening polyuria including incontinence to urine. She reports she is more thirsty than she has ever been in her life and continously asks for water. She has also had some shortness of breath and increasing weakness but does not endorse any fever like symptoms or chills. She is oriented to place and time but is struggling to communicate due to her discomfort and extreme thirst. She reports she had been feeling progressively worse for the past month as she quit IV drugs about a month ago due to lack of funds and a "hookup". She then started using again last week and her last use of opiates and meth was on Sunday. Since then she has been feeling progressively more in pain and lethargic. She has been using NSAIDs for her pain control and says she'll use at least fifteen in a day. She lost her glucometer some time ago and has been very occasionally using 20 units of insulin haphazardly. She says it's been several months since she has had her sugars under any real control. Primary Care Provider: [facility] Allergies Allergy/AdvReac Type Severity Reaction Status Date / Time iodine Allergy Severe RASH Verified 10/07/18 13:01 Iodinated Contrast- Oral and Allergy Unknown RASH Verified 10/07/18 13:01 IV Dye Home Medications Home Medications Medication Instructions Recorded Confirmed Type buprenorphine HCl 8 mg SUBLINGUAL BID 10/07/18 10/07/18 History insulin aspart U-100 [Novolog 1 dose SUBCUT DIRECTED 10/07/18 10/07/18 History Flexpen U-100 Insulin] insulin glargine [Basaglar KwikPen 32 units SUBCUT QAM 10/07/18 10/07/18 History U-100 Insulin] Past Med/Surg History Social History Feels Safe at Home: Yes Smoking Status: Current every day smoker Hx Substance Use: Yes substance use type: IV drugs Review of Systems Constitutional: + chills, + sweats, + body aches, + fatigue, + malaise and + weakness; no fever Respiratory: + cough and + pain with cough; no chest congestion, no hemoptysis, no pain on inspiration and no wheezing Cardiovascular: + chest pain and + chest pain at rest; no chest pain with activity, no palpitations, no syncope, no edema and no calf pain Gastrointestinal: no abdominal pain, no nausea and no vomiting Genitourinary (Female): + urinary frequency and + urinary incontinence; no dysuria, no difficulty urinating and no hematuria Physical Exam 2 Vital Signs (Past 24 Hours): Last Vital Signs Temp 37.5 C 10/07/18 12:25 Pulse 123 H 10/07/18 12:36 Resp 39 H 10/07/18 12:36 BP 103/65 10/07/18 12:36 Pulse Ox 93 10/07/18 13:13 Constitutional: well developed, well nourished, + ill appearing, + disheveled and + in distress; + not appropriately hydrated and + uncomfortable Eyes: PERRL, conjunctivae normal, anicteric sclerae Respiratory: normal respiratory effort; no respiratory distress and no labored breathing Auscultation: lungs clear to auscultation bilaterally ( Coarse breath sounds) Gastrointestinal (Abdomen): Inspection/Auscultation: abdomen normal to inspection; abdomen not distended Percussion/Palpation: + abdomen tender ( Epigastric tenderness) and abdomen soft Code Status & VTE Plan Code Status Full Code VTE Prophylaxis Plan VTE Prophylaxis will be ordered: No Reason for no VTE drug order: Contraindicated Reason for no VTE mechanical prophylaxis: Treatment not indicated Supervising Physician Co-Signing Physician Notes I personally examined the patient and verified all cotton points of history and exam, discussed case, and agree with decision making with Dr Infante. Hurting all over, upper abdominal pain, right shoulder pain more at the forward part of her shoulder, diffuse joint pain. Hyperglycemia polydipsia polyuria generally weak all over Vitals are noted she is quite tachycardic although she is less tachypneic when I see her than before. She does appear uncomfortable fatigued. Her lips are extremely dry and cracked, cardio is tachycardic with no rubs murmurs or gallops , lungs are slightly coarse but no rales rhonchi or wheezes good effort. Her abdomen is soft she has epigastric tenderness not anywhere else no guarding or rebound. Her right arm shows tenderness focally over the anterior humerus predominantly in the area worse with flexion at the arm. She shows no erythema of her skin no subcutaneous emphysema. She does have distal areas that appear consistent with insect bites Hyperglycemic dehydration�this appears to be the predominant illness making her sick at this point in time. Her sugar is well over thousand, and she appears exceedingly dry. Continue aggressive fluid resuscitation. Replace potassium as her K normalizes, continue IV insulin, follow closely. Most likely this was brought on simply by not taking her insulin, but given her questionable infectious process, as well as questionable GI bleed, we have to look at this as possibly a secondary illness as well as most likely a primary process. Acute renal failure�due to above. Follow with IV fluids Abdominal pain and anemia�given her physical stress, emotional stress, and recent ibuprofen use, we need to view this is a GI bleed until proven otherwise. Follow hemoglobin closely, IV H2 mela as well as PPI, serial exams, with a low threshold for EGD. Heme test stools. Questionable pneumonia�she is ill enough that I agree with empiric antibiotics for now, definitely want to evaluate further with serial exams as well as a CT of the chest. Given that it will not change acute management, I will hold on getting the CT of the chest until her creatinine is improved enough that we can also rule out PE as a cause of her tachycardia with IV contrast. Pain�she is diffuse pain all over a lot of it is joint related, my biggest suspicion is that she is in withdrawal, which she agrees with. However, given that she does inject drugs we do have concern about any kind of seeding from bacteremia/septic emboli. Blood cultures have been drawn and are pending, empiric antibiotics been started as above. We will utilize morphine for pain control Hyponatremia�this corrects to normal, making it almost certainly all pseudohyponatremia. Uncontrolled type 1 diabetes�she will need extensive education about this IV drug abuse�education and supportive care. She apparently was on maintenance therapy before, we will look and if we can get her back to that. DVT prophylaxis�pharmacologic is risky until it is clear whether or not she has any GI bleeding going on. Mechanical prophylaxis is of dubious benefit and questionable risk of falling given her weakness right now. Otherwise as above, personally signed out to night coverage [id number].
[2018-10-07 15:43] LABS: iSTAT Blood Urea Nitrogen 32 mg/dl (7-18); iSTAT Carbon Dioxide 20 mEq/l (24-31); iSTAT Glucose > 700 mg/dl (70-99); iSTAT Hemoglobin 11.2 g/dl (12.0-16.0); iSTAT Ionized Calcium 1.03 mmol/l (1.12-1.32)
[2018-10-07 16:04] LABS: BUN Creatinine Ratio 20.5 (10-20); Calcium 7.6 mg/dl (8.5-10.1); Creatinine Clr Calc Pharmacy 37.5 ml/min; Est GFR (African American) 41.5; Est GFR (Non-African American) 35.8; Magnesium 2.4 mg/dl (1.8-2.4); Phosphorus 4.9 mg/dl (2.5-4.9)
--- NOTE | 2018-10-07 17:27 | Emergency Department Note ---
Entered by Lilibeth Panda acting as a scribe for History of Present Illness General Chief complaint: Illness Source: patient and EMS Mode of arrival: EMS Limitations: no limitations History of Present Illness Provider complaint: malaise Onset (ago): week(s) 1 Location: head (generalized) Pain Consistency: + other (persisitent ) Quality: + other (malaise) Associated symptoms: + other (upper and lower extremity pain, dysuria) Treatments prior to arrival: other (ibuprofen) The patient is a 37 year old female who presents to the Emergency Room via ALS with complaints of persistent malaise that began a week ago. The patient reports that she has a history of type 1 diabetes and does not monitor her BSG at home, but does occasionally take insulin. She also states that she has been experiencing dysuria, right shoulder pain, left hand pain and left knee pain. She notes that she has been taken ibuprofen everyday for a month to alleviate her symptoms. The patient denies any chance of . EMS notes show that the patient last used methamphetamine and suboxone 3 days ago. Patient injects intravenously. Home Medications Home Medications Medication Instructions Recorded Confirmed Type buprenorphine HCl 8 mg SUBLINGUAL BID 10/07/18 10/07/18 History insulin aspart U-100 [Novolog 1 dose SUBCUT DIRECTED 10/07/18 10/07/18 History Flexpen U-100 Insulin] insulin glargine [Basaglar KwikPen 32 units SUBCUT QAM 10/07/18 10/07/18 History U-100 Insulin] Allergies Allergy/AdvReac Type Severity Reaction Status Date / Time iodine Allergy Severe RASH Verified 10/07/18 13:01 Iodinated Contrast- Oral and Allergy Unknown RASH Verified 10/07/18 13:01 IV Dye Past Med/Surg History Social History Current Living Situation: Family Current Living Situation Comment: LIVES ALONE WITH CHILDREN. Other Information That Helps Us Care for You: No Feels Safe at Home: Yes Safety Concerns: Feels Safe At This Time Smoking Status: Current every day smoker Tobacco Type: cigarettes Cigarettes per Day: 10 Do You Dip or Chew Tobacco: No Second Hand Exposure: Yes Tobacco Cessation Education Requested by Patient: Yes Hx Alcohol Use: No Hx Substance Use: Yes substance use type: marijuana, IV drugs, methamphetamine and other Substance Use Type Other:: SUBUTEX Last Used Substance: Days (ago) Last Used Substance Other:: SUNDAY Beliefs That Will Affect Care: None Preferred Language: Amharic Communication Ability: Effective Pork Cutlet Maker Required: Yes Review of Systems See HPI for pertinent positives & negatives. and A total of 10 systems reviewed and were otherwise negative Physical Exam Vital Signs Vital Signs - 24 hr 10/07/18 12:25 10/07/18 12:36 10/07/18 13:00 Temperature 37.5 C Temperature Source Oral Sepsis Recent Fever Within 48 Hours No Sepsis New/Unexplained Change in Mental Status No Sepsis Action Taken by Nursing Physician Notified Pulse Rate 126 H 123 H 119 H Pulse Rate [Apical] Pulse Rhythm Regular Pulse Rhythm [Apical] Pulse Strength [Apical] Respiratory Rate 30 H 39 H 37 H Respiratory Effort / Characteristics Respiratory Depth Respiratory Pattern Blood Pressure 101/62 103/65 Blood Pressure [Left Arm] Blood Pressure Mean 75 77 Blood Pressure Mean [Left Arm] Blood Pressure Position [Left Arm] Pulse Oximetry 88 L 94 91 Oxygen Delivery Method Room Air Oxymask Oxygen Flow Rate 4 10/07/18 13:01 10/07/18 13:12 10/07/18 13:13 Temperature Temperature Source Sepsis Recent Fever Within 48 Hours Sepsis New/Unexplained Change in Mental Status Sepsis Action Taken by Nursing Pulse Rate 118 H Pulse Rate [Apical] Pulse Rhythm Pulse Rhythm [Apical] Pulse Strength [Apical] Respiratory Rate 34 H Respiratory Effort / Characteristics Respiratory Depth Respiratory Pattern Blood Pressure 105/70 Blood Pressure [Left Arm] Blood Pressure Mean 81 Blood Pressure Mean [Left Arm] Blood Pressure Position [Left Arm] Pulse Oximetry 94 93 Oxygen Delivery Method Oxymask Oxymask Oxygen Flow Rate 3 3 10/07/18 13:14 10/07/18 13:16 10/07/18 13:30 Temperature Temperature Source Sepsis Recent Fever Within 48 Hours Sepsis New/Unexplained Change in Mental Status Sepsis Action Taken by Nursing Pulse Rate 116 H 116 H 114 H Pulse Rate [Apical] Pulse Rhythm Pulse Rhythm [Apical] Pulse Strength [Apical] Respiratory Rate 27 H 30 H 45 H Respiratory Effort / Characteristics Respiratory Depth Respiratory Pattern Blood Pressure 99/67 L 105/70 Blood Pressure [Left Arm] Blood Pressure Mean 77 81 Blood Pressure Mean [Left Arm] Blood Pressure Position [Left Arm] Pulse Oximetry 91 92 91 Oxygen Delivery Method Oxygen Flow Rate 10/07/18 13:31 10/07/18 13:46 01/07/19 14:00 Temperature Temperature Source Sepsis Recent Fever Within 48 Hours Sepsis New/Unexplained Change in Mental Status Sepsis Action Taken by Nursing Pulse Rate 112 H 112 H 112 H Pulse Rate [Apical] Pulse Rhythm Pulse Rhythm [Apical] Pulse Strength [Apical] Respiratory Rate 29 H 32 H 24 Respiratory Effort / Characteristics Respiratory Depth Respiratory Pattern Blood Pressure 85/69 L 106/67 Blood Pressure [Left Arm] Blood Pressure Mean 74 80 Blood Pressure Mean [Left Arm] Blood Pressure Position [Left Arm] Pulse Oximetry 92 93 92 Oxygen Delivery Method Oxygen Flow Rate 10/07/18 14:01 10/07/18 14:16 10/07/18 14:30 Temperature Temperature Source Sepsis Recent Fever Within 48 Hours Sepsis New/Unexplained Change in Mental Status Sepsis Action Taken by Nursing Pulse Rate 112 H 115 H 113 H Pulse Rate [Apical] Pulse Rhythm Pulse Rhythm [Apical] Pulse Strength [Apical] Respiratory Rate 44 H 52 H 29 H Respiratory Effort / Characteristics Respiratory Depth Respiratory Pattern Blood Pressure 106/62 105/61 Blood Pressure [Left Arm] Blood Pressure Mean 76 75 Blood Pressure Mean [Left Arm] Blood Pressure Position [Left Arm] Pulse Oximetry 92 92 90 Oxygen Delivery Method Oxygen Flow Rate 10/07/18 14:31 10/07/18 14:46 10/07/18 15:00 Temperature Temperature Source Sepsis Recent Fever Within 48 Hours Sepsis New/Unexplained Change in Mental Status Sepsis Action Taken by Nursing Pulse Rate 112 H 114 H 113 H Pulse Rate [Apical] Pulse Rhythm Pulse Rhythm [Apical] Pulse Strength [Apical] Respiratory Rate 43 H 47 H 50 H Respiratory Effort / Characteristics Respiratory Depth Respiratory Pattern Blood Pressure 100/61 101/64 Blood Pressure [Left Arm] Blood Pressure Mean 74 76 Blood Pressure Mean [Left Arm] Blood Pressure Position [Left Arm] Pulse Oximetry 90 84 L 88 L Oxygen Delivery Method Oxygen Flow Rate 10/07/18 15:01 10/07/18 15:04 10/07/18 15:16 Temperature Temperature Source Sepsis Recent Fever Within 48 Hours Sepsis New/Unexplained Change in Mental Status Sepsis Action Taken by Nursing Pulse Rate 113 H 109 H 112 H Pulse Rate [Apical] Pulse Rhythm Pulse Rhythm [Apical] Pulse Strength [Apical] Respiratory Rate 31 H 29 H 32 H Respiratory Effort / Characteristics Respiratory Depth Respiratory Pattern Blood Pressure 102/67 99/66 L 103/71 Blood Pressure [Left Arm] Blood Pressure Mean 78 77 81 Blood Pressure Mean [Left Arm] Blood Pressure Position [Left Arm] Pulse Oximetry 90 97 96 Oxygen Delivery Method Oxygen Flow Rate 10/07/18 15:30 10/07/18 15:31 10/07/18 15:46 Temperature Temperature Source Sepsis Recent Fever Within 48 Hours Sepsis New/Unexplained Change in Mental Status Sepsis Action Taken by Nursing Pulse Rate 108 H 108 H 111 H Pulse Rate [Apical] Pulse Rhythm Pulse Rhythm [Apical] Pulse Strength [Apical] Respiratory Rate 20 27 H 44 H Respiratory Effort / Characteristics Respiratory Depth Respiratory Pattern Blood Pressure 101/72 106/73 Blood Pressure [Left Arm] Blood Pressure Mean 81 84 Blood Pressure Mean [Left Arm] Blood Pressure Position [Left Arm] Pulse Oximetry 95 96 91 Oxygen Delivery Method Oxygen Flow Rate 10/07/18 16:00 10/07/18 16:01 10/07/18 16:16 Temperature Temperature Source Sepsis Recent Fever Within 48 Hours Sepsis New/Unexplained Change in Mental Status Sepsis Action Taken by Nursing Pulse Rate 108 H 109 H 108 H Pulse Rate [Apical] Pulse Rhythm Pulse Rhythm [Apical] Pulse Strength [Apical] Respiratory Rate 26 H 45 H 43 H Respiratory Effort / Characteristics Respiratory Depth Respiratory Pattern Blood Pressure 105/68 106/72 Blood Pressure [Left Arm] Blood Pressure Mean 80 83 Blood Pressure Mean [Left Arm] Blood Pressure Position [Left Arm] Pulse Oximetry 91 93 90 Oxygen Delivery Method Oxygen Flow Rate 10/07/18 16:30 10/07/18 16:31 10/07/18 16:46 Temperature Temperature Source Sepsis Recent Fever Within 48 Hours Sepsis New/Unexplained Change in Mental Status Sepsis Action Taken by Nursing Pulse Rate 107 H 108 H 108 H Pulse Rate [Apical] Pulse Rhythm Pulse Rhythm [Apical] Pulse Strength [Apical] Respiratory Rate 30 H 39 H 31 H Respiratory Effort / Characteristics Respiratory Depth Respiratory Pattern Blood Pressure 106/69 105/72 Blood Pressure [Left Arm] Blood Pressure Mean 81 83 Blood Pressure Mean [Left Arm] Blood Pressure Position [Left Arm] Pulse Oximetry 92 89 L 91 Oxygen Delivery Method Oxygen Flow Rate 10/07/18 17:00 10/07/18 17:01 10/07/18 17:16 Temperature Temperature Source Sepsis Recent Fever Within 48 Hours Sepsis New/Unexplained Change in Mental Status Sepsis Action Taken by Nursing Pulse Rate 105 H 107 H 108 H Pulse Rate [Apical] Pulse Rhythm Pulse Rhythm [Apical] Pulse Strength [Apical] Respiratory Rate 48 H 27 H 46 H Respiratory Effort / Characteristics Respiratory Depth Respiratory Pattern Blood Pressure 108/76 124/67 Blood Pressure [Left Arm] Blood Pressure Mean 86 86 Blood Pressure Mean [Left Arm] Blood Pressure Position [Left Arm] Pulse Oximetry 89 L 90 95 Oxygen Delivery Method Oxygen Flow Rate 10/07/18 17:30 10/07/18 17:31 10/07/18 17:42 Temperature Temperature Source Sepsis Recent Fever Within 48 Hours Sepsis New/Unexplained Change in Mental Status Sepsis Action Taken by Nursing Pulse Rate 108 H 106 H 110 H Pulse Rate [Apical] Pulse Rhythm Pulse Rhythm [Apical] Pulse Strength [Apical] Respiratory Rate 32 H 42 H 49 H Respiratory Effort / Characteristics Respiratory Depth Respiratory Pattern Blood Pressure 110/77 106/76 Blood Pressure [Left Arm] Blood Pressure Mean 88 86 Blood Pressure Mean [Left Arm] Blood Pressure Position [Left Arm] Pulse Oximetry 89 L 95 86 L Oxygen Delivery Method Oxygen Flow Rate 10/07/18 17:46 10/07/18 18:00 10/07/18 18:01 Temperature Temperature Source Sepsis Recent Fever Within 48 Hours Sepsis New/Unexplained Change in Mental Status Sepsis Action Taken by Nursing Pulse Rate 110 H 108 H 109 H Pulse Rate [Apical] Pulse Rhythm Pulse Rhythm [Apical] Pulse Strength [Apical] Respiratory Rate 41 H 44 H 55 H Respiratory Effort / Characteristics Respiratory Depth Respiratory Pattern Blood Pressure 108/79 108/77 Blood Pressure [Left Arm] Blood Pressure Mean 88 87 Blood Pressure Mean [Left Arm] Blood Pressure Position [Left Arm] Pulse Oximetry 93 97 94 Oxygen Delivery Method Oxygen Flow Rate 10/07/18 18:16 10/07/18 18:30 10/07/18 18:31 Temperature Temperature Source Sepsis Recent Fever Within 48 Hours Sepsis New/Unexplained Change in Mental Status Sepsis Action Taken by Nursing Pulse Rate 113 H 117 H 118 H Pulse Rate [Apical] Pulse Rhythm Pulse Rhythm [Apical] Pulse Strength [Apical] Respiratory Rate 54 H 61 H 33 H Respiratory Effort / Characteristics Respiratory Depth Respiratory Pattern Blood Pressure 105/75 113/80 Blood Pressure [Left Arm] Blood Pressure Mean 85 91 Blood Pressure Mean [Left Arm] Blood Pressure Position [Left Arm] Pulse Oximetry 91 93 93 Oxygen Delivery Method Oxygen Flow Rate 10/07/18 18:46 10/07/18 19:00 10/07/18 19:01 Temperature Temperature Source Sepsis Recent Fever Within 48 Hours Sepsis New/Unexplained Change in Mental Status Sepsis Action Taken by Nursing Pulse Rate 118 H 116 H 118 H Pulse Rate [Apical] Pulse Rhythm Pulse Rhythm [Apical] Pulse Strength [Apical] Respiratory Rate 40 H 36 H 39 H Respiratory Effort / Characteristics Respiratory Depth Respiratory Pattern Blood Pressure 114/76 120/80 Blood Pressure [Left Arm] Blood Pressure Mean 88 93 Blood Pressure Mean [Left Arm] Blood Pressure Position [Left Arm] Pulse Oximetry 93 91 91 Oxygen Delivery Method Oxygen Flow Rate 10/07/18 19:16 10/07/18 19:48 Temperature 38.6 C H Temperature Source Oral Sepsis Recent Fever Within 48 Hours Sepsis New/Unexplained Change in Mental Status Sepsis Action Taken by Nursing Pulse Rate 122 H Pulse Rate [Apical] 130 H Pulse Rhythm Pulse Rhythm [Apical] Regular Pulse Strength [Apical] Normal Respiratory Rate 70 H 31 H Respiratory Effort / Characteristics Spontaneous Grunting Moaning Respiratory Depth Shallow Respiratory Pattern Tachypnea Blood Pressure 114/88 Blood Pressure [Left Arm] 115/81 Blood Pressure Mean 96 Blood Pressure Mean [Left Arm] 92 Blood Pressure Position [Left Arm] Lying Pulse Oximetry 89 L 90 Oxygen Delivery Method Nasal Cannula Oxygen Flow Rate 5 Vital signs reviewed. General: Unkempt, appears to be critically ill. HEENT: No scleral icterus, PERRLA, neck supple. Atraumatic. Dry mucous membranes. Poor dentition. Cardiovascular: Tachycardic and regular rhythm, crackles at the bases bilaterally. Pulmonary: Clear to auscultation bilaterally, tachypneic, hypoxic on room air. Currently on supplemental O2. Abdomen: Soft, nontender, nondistended, positive bowel sounds. Musculoskeletal: Atraumatic, peripheral edema to the hands and feet bilaterally Neurologic: Patient awake alert and oriented x 3. Diffusely tender to the distal extremities without clear etiology. Skin: Warm, dry, several IV injection wounds to extremities. No obvious cellulitis on exam. Course 1225: Past medical records reviewed. The patient was evaluated in room C3, and a complete history and physical examination were performed. 1400: I reviewed the patient's case with Dr. Bishop - [facility] Hospitalist. He will evaluate the patient for further management. Administered Medications Insulin Human Regular 250 (units/ Sodium Chloride) 250 mls @ 2.5 mls/hr IV .Q24H [facility]; Protocol Stop: 11/06/18 13:29 Last Titration: 10/07/18 18:22 Dose: 3 units/hr, 3 mls/hr Titration: 10/07/18 16:17 Dose: 2.5 units/hr, 2.5 mls/hr Admin: 10/07/18 14:06 Dose: 2.1 units/hr, 2.1 mls/hr Discontinued Medications Sodium Chloride (Nss 1000ml) 1,000 mls @ 999 mls/hr IV .Q1H1M ONE Stop: 10/07/18 13:26 Last Infusion: 10/07/18 14:10 Dose: 0 mls/hr Admin: 10/07/18 12:30 Dose: 999 mls/hr Sodium Chloride (Nss 1000ml) 1,000 mls @ 200 mls/hr IV .Q5H [facility] Stop: 11/06/18 12:29 Last Admin: 10/07/18 13:57 Dose: 200 mls/hr Sodium Chloride (Nss 1000ml) 1,000 mls @ 999 mls/hr IV .Q1H1M ONE Stop: 10/07/18 13:29 Last Infusion: 10/07/18 14:10 Dose: 0 mls/hr Admin: 10/07/18 12:30 Dose: 999 mls/hr Piperacillin Sod/Tazobactam Sod (Zosyn) 4.5 gm in 120 mls @ 240 mls/hr IV NOW ONE Stop: 10/07/18 13:29 Last Infusion: 10/07/18 14:15 Dose: 0 mls/hr Admin: 10/07/18 13:57 Dose: 240 mls/hr Vancomycin HCl 1,250 mg/ (Sodium Chloride) 275 mls @ 125 mls/hr IV NOW STA Stop: 10/07/18 15:22 Last Infusion: 10/07/18 17:06 Dose: Admin: 10/07/18 14:10 Dose: 125 mls/hr Sodium Chloride (Nss 1000ml) 1,000 mls @ 500 mls/hr IV .Q2H [facility] Stop: 11/06/18 15:14 Last Infusion: 10/07/18 18:10 Dose: 0 mls/hr Admin: 10/07/18 15:42 Dose: 500 mls/hr Insulin Human Regular (Novolin R Bolus From Bag) 2 units IV NOW ONE Stop: 10/07/18 13:46 Last Admin: 10/07/18 14:09 Dose: 2 units Miscellaneous (Insulin Protocol Dka Goal Range) 1 ea N/A ONE ONE Stop: 10/07/18 13:25 Last Admin: 10/07/18 14:17 Dose: Not Given Miscellaneous (Insulin Protocol Severe Stress) 1 ea N/A ONE ONE Stop: 10/07/18 13:25 Last Admin: 10/07/18 14:17 Dose: Not Given Ondansetron HCl (Zofran) 4 mg IV NOW STA Stop: 10/07/18 12:30 Last Admin: 10/07/18 12:54 Dose: 4 mg Medical Decision Making Differential Diagnosis Differential Diagnosis includes but is not limited to: dehydration, stroke, anemia, hypoglycemia, hyponatremia, hypernatremia, urinary tract infection, pneumonia, bronchitis, sepsis, gastroenteritis, additional abdominal pathology, DKA, sepsis, metabolic abnormalities and infections. Medical Records Attestation: I reviewed the patient's medical records. Home Medications Current Medication List: was personally reviewed by me Laboratory Data Attestation: I reviewed the patient's lab results. Result diagrams: 10/07/18 12:20 10/07/18 17:40 Lab Results 10/07/18 10/07/18 10/07/18 Range/Units 12:20 12:20 12:20 WBC 9.76 (4.8-10.8) K/uL RBC 3.91 L (4.2-5.4) M/uL Hgb 10.5 L (12.0-16.0) g/dL POC Hgb (12.0-16.0) g/dl Hct 33.1 L (37-47) % POC Hct (37-47) % MCV 84.7 (80-100) fL MCH 26.9 (25-34) pg MCHC 31.7 L (32-36) g/dL Plt Count 96 L (130-400) K/uL Immature Gran % (Auto) 0.7 % Neut % (Auto) 88.0 % Lymph % (Auto) 7.4 % Slope % (Auto) 3.7 % Eos % (Auto) 0.0 % Baso % (Auto) 0.2 % Immature Gran # (Auto) 0.07 H (0.00-0.02) K/uL Neut # (Auto) 8.59 H (1.4-6.5) K/uL Lymph # (Auto) 0.72 L (1.2-3.4) K/uL Slope # (Auto) 0.36 (0.11-0.59) K/uL Eos # (Auto) 0.00 (0-0.5) K/uL Baso # (Auto) 0.02 (0-0.2) K/uL Toxic Granulation 1+ Dohle Bodies 1+ Platelet Estimate Decreased (Normal) PT 14.0 H (9.0-12.0) Seconds INR 1.4 H (0.9-1.1) APTT 31.2 H (21.0-31.0) Seconds PTT Ratio 1.2 ABG pH (7.35-7.45) ABG pCO2 (35-46) mmHg ABG pO2 (80-95) mm/Hg ABG HCO3 (19-24) mmol/L ABG O2 Saturation (90-95) % ABG Base Excess (-9-1.8) mEq/L Kong Test (Pos) VBG pH (7.36-7.41) Barometric Pressure mm/Hg Oxygen Given POC Sodium (135-144) mEq/L Sodium 119 L* (136-145) mmol/L POC Potassium (3.3-5.0) mEq/L Potassium 5.3 H (3.5-5.1) mmol/L POC Chloride (101-112) mEq/L Chloride 88 L (98-107) mmol/L Carbon Dioxide 20 L (21-32) mmol/L POC Total CO2 (24-31) mEq/l Anion Gap 11.0 (3-11) POC Anion Gap (16-25) mmol/L POC BUN (7-18) mg/dl BUN 40 H (7-18) mg/dl Creatinine 1.85 H (0.6-1.2) mg/dl POC Creatinine (0.6-1.3) mg/dl Est Cr Clr Drug Dosing 36.3 ml/min Est GFR ( Amer) 39.9 Est GFR (Non-Af Amer) 34.4 BUN/Creatinine Ratio 21.4 H (10-20) Glucose 1227 H* (70-99) mg/dl POC Glucose (70-99) POC Glucose (other) (70-99) mg/dl POC Lactic Acid Alli (0.90-1.70) mmol/L Lactate (0.4-2.0) mmol/L Calcium 8.1 L (8.5-10.1) mg/dl POC Ioniz Calcium Miguel (1.12-1.32) mmol/l Phosphorus (2.5-4.9) mg/dl Magnesium (1.8-2.4) mg/dl Total Bilirubin 0.8 (0.2-1) mg/dl AST 9 L (15-37) U/L ALT 13 (12-78) U/L Alkaline Phosphatase 397 H (45-117) U/L Total Protein 6.7 (6.4-8.2) gm/dl Albumin 2.0 L (3.4-5.0) gm/dl Globulin 4.7 H (2.5-4.0) gm/dl Albumin/Globulin Ratio 0.4 L (0.9-2) Beta-Hydroxybutyric Acd 21.46 H (0.2-2.81) mg/dl Urine Color Urine Appearance (Clear) Urine pH (4.5-7.5) Ur Specific [place] (1.000-1.030) Urine Protein (Negative) Urine Glucose (UA) (Negative) Urine Ketones (Negative) Urine Blood (Negative) Urine Nitrite (Negative) Urine Bilirubin (Negative) Urine Urobilinogen (Negative) Ur Leukocyte Esterase (Negative) Urine WBC (Auto) (0-5) /hpf Urine RBC (Auto) (0-4) /hpf U Hyaline Cast (Auto) (0-5) /lpf U Epithel Cells (Auto) (0-5) /lpf Urine Bacteria (Auto) (Negative) Amorphous Sediment (None Prsent) Influenza Type A (PCR) (Neg) Influenza Type B (PCR) (Neg) 10/07/18 10/07/18 10/07/18 Range/Units 12:21 12:30 12:34 WBC (4.8-10.8) K/uL RBC (4.2-5.4) M/uL Hgb (12.0-16.0) g/dL POC Hgb 11.6 L (12.0-16.0) g/dl Hct (37-47) % POC Hct 34 L (37-47) % MCV (80-100) fL MCH (25-34) pg MCHC (32-36) g/dL Plt Count (130-400) K/uL Immature Gran % (Auto) % Neut % (Auto) % Lymph % (Auto) % Slope % (Auto) % Eos % (Auto) % Baso % (Auto) % Immature Gran # (Auto) (0.00-0.02) K/uL Neut # (Auto) (1.4-6.5) K/uL Lymph # (Auto) (1.2-3.4) K/uL Slope # (Auto) (0.11-0.59) K/uL Eos # (Auto) (0-0.5) K/uL Baso # (Auto) (0-0.2) K/uL Toxic Granulation Dohle Bodies Platelet Estimate (Normal) PT (9.0-12.0) Seconds INR (0.9-1.1) APTT (21.0-31.0) Seconds PTT Ratio ABG pH (7.35-7.45) ABG pCO2 (35-46) mmHg ABG pO2 (80-95) mm/Hg ABG HCO3 (19-24) mmol/L ABG O2 Saturation (90-95) % ABG Base Excess (-9-1.8) mEq/L Kong Test (Pos) VBG pH (7.36-7.41) Barometric Pressure mm/Hg Oxygen Given POC Sodium 122 L (135-144) mEq/L Sodium (136-145) mmol/L POC Potassium 5.4 H (3.3-5.0) mEq/L Potassium (3.5-5.1) mmol/L POC Chloride 88 L (101-112) mEq/L Chloride (98-107) mmol/L Carbon Dioxide (21-32) mmol/L POC Total CO2 20 L (24-31) mEq/l Anion Gap (3-11) POC Anion Gap 21.0 (16-25) mmol/L POC BUN 33 H (7-18) mg/dl BUN (7-18) mg/dl Creatinine (0.6-1.2) mg/dl POC Creatinine 1.2 (0.6-1.3) mg/dl Est Cr Clr Drug Dosing ml/min Est GFR ( Amer) Est GFR (Non-Af Amer) BUN/Creatinine Ratio (10-20) Glucose (70-99) mg/dl POC Glucose > 600 H* (70-99) POC Glucose (other) > 700 H* (70-99) mg/dl POC Lactic Acid Alli 2.33 H (0.90-1.70) mmol/L Lactate (0.4-2.0) mmol/L Calcium (8.5-10.1) mg/dl POC Ioniz Calcium Miguel 1.09 L (1.12-1.32) mmol/l Phosphorus (2.5-4.9) mg/dl Magnesium (1.8-2.4) mg/dl Total Bilirubin (0.2-1) mg/dl AST (15-37) U/L ALT (12-78) U/L Alkaline Phosphatase (45-117) U/L Total Protein (6.4-8.2) gm/dl Albumin (3.4-5.0) gm/dl Globulin (2.5-4.0) gm/dl Albumin/Globulin Ratio (0.9-2) Beta-Hydroxybutyric Acd (0.2-2.81) mg/dl Urine Color Urine Appearance (Clear) Urine pH (4.5-7.5) Ur Specific [place] (1.000-1.030) Urine Protein (Negative) Urine Glucose (UA) (Negative) Urine Ketones (Negative) Urine Blood (Negative) Urine Nitrite (Negative) Urine Bilirubin (Negative) Urine Urobilinogen (Negative) Ur Leukocyte Esterase (Negative) Urine WBC (Auto) (0-5) /hpf Urine RBC (Auto) (0-4) /hpf U Hyaline Cast (Auto) (0-5) /lpf U Epithel Cells (Auto) (0-5) /lpf Urine Bacteria (Auto) (Negative) Amorphous Sediment (None Prsent) Influenza Type A (PCR) (Neg) Influenza Type B (PCR) (Neg) 10/07/18 10/07/18 10/07/18 Range/Units 13:00 13:13 13:27 WBC (4.8-10.8) K/uL RBC (4.2-5.4) M/uL Hgb (12.0-16.0) g/dL POC Hgb (12.0-16.0) g/dl Hct (37-47) % POC Hct (37-47) % MCV (80-100) fL MCH (25-34) pg MCHC (32-36) g/dL Plt Count (130-400) K/uL Immature Gran % (Auto) % Neut % (Auto) % Lymph % (Auto) % Slope % (Auto) % Eos % (Auto) % Baso % (Auto) % Immature Gran # (Auto) (0.00-0.02) K/uL Neut # (Auto) (1.4-6.5) K/uL Lymph # (Auto) (1.2-3.4) K/uL Slope # (Auto) (0.11-0.59) K/uL Eos # (Auto) (0-0.5) K/uL Baso # (Auto) (0-0.2) K/uL Toxic Granulation Dohle Bodies Platelet Estimate (Normal) PT (9.0-12.0) Seconds INR (0.9-1.1) APTT (21.0-31.0) Seconds PTT Ratio ABG pH 7.42 (7.35-7.45) ABG pCO2 32 L (35-46) mmHg ABG pO2 54 L (80-95) mm/Hg ABG HCO3 20 (19-24) mmol/L ABG O2 Saturation 86.8 L (90-95) % ABG Base Excess -3.4 (-9-1.8) mEq/L Kong Test Pos (Pos) VBG pH (7.36-7.41) Barometric Pressure 739.5 mm/Hg Oxygen Given 4L POC Sodium (135-144) mEq/L Sodium (136-145) mmol/L POC Potassium (3.3-5.0) mEq/L Potassium (3.5-5.1) mmol/L POC Chloride (101-112) mEq/L Chloride (98-107) mmol/L Carbon Dioxide (21-32) mmol/L POC Total CO2 (24-31) mEq/l Anion Gap (3-11) POC Anion Gap (16-25) mmol/L POC BUN (7-18) mg/dl BUN (7-18) mg/dl Creatinine (0.6-1.2) mg/dl POC Creatinine (0.6-1.3) mg/dl Est Cr Clr Drug Dosing ml/min Est GFR ( Amer) Est GFR (Non-Af Amer) BUN/Creatinine Ratio (10-20) Glucose (70-99) mg/dl POC Glucose > 600 H* (70-99) POC Glucose (other) (70-99) mg/dl POC Lactic Acid Alli (0.90-1.70) mmol/L Lactate (0.4-2.0) mmol/L Calcium (8.5-10.1) mg/dl POC Ioniz Calcium Miguel (1.12-1.32) mmol/l Phosphorus (2.5-4.9) mg/dl Magnesium (1.8-2.4) mg/dl Total Bilirubin (0.2-1) mg/dl AST (15-37) U/L ALT (12-78) U/L Alkaline Phosphatase (45-117) U/L Total Protein (6.4-8.2) gm/dl Albumin (3.4-5.0) gm/dl Globulin (2.5-4.0) gm/dl Albumin/Globulin Ratio (0.9-2) Beta-Hydroxybutyric Acd (0.2-2.81) mg/dl Urine Color Yellow Urine Appearance Clear (Clear) Urine pH 5.0 (4.5-7.5) Ur Specific [place] 1.029 (1.000-1.030) Urine Protein Negative (Negative) Urine Glucose (UA) 3+ H (Negative) Urine Ketones Trace H (Negative) Urine Blood 2+ H (Negative) Urine Nitrite Negative (Negative) Urine Bilirubin Negative (Negative) Urine Urobilinogen Negative (Negative) Ur Leukocyte Esterase Negative (Negative) Urine WBC (Auto) 10-30 H (0-5) /hpf Urine RBC (Auto) 0-4 (0-4) /hpf U Hyaline Cast (Auto) 0 (0-5) /lpf U Epithel Cells (Auto) 0-5 (0-5) /lpf Urine Bacteria (Auto) 1+ H (Negative) Amorphous Sediment Present H (None Prsent) Influenza Type A (PCR) (Neg) Influenza Type B (PCR) (Neg) 10/07/18 10/07/18 10/07/18 Range/Units 13:54 14:32 15:30 WBC (4.8-10.8) K/uL RBC (4.2-5.4) M/uL Hgb (12.0-16.0) g/dL POC Hgb (12.0-16.0) g/dl Hct (37-47) % POC Hct (37-47) % MCV (80-100) fL MCH (25-34) pg MCHC (32-36) g/dL Plt Count (130-400) K/uL Immature Gran % (Auto) % Neut % (Auto) % Lymph % (Auto) % Slope % (Auto) % Eos % (Auto) % Baso % (Auto) % Immature Gran # (Auto) (0.00-0.02) K/uL Neut # (Auto) (1.4-6.5) K/uL Lymph # (Auto) (1.2-3.4) K/uL Slope # (Auto) (0.11-0.59) K/uL Eos # (Auto) (0-0.5) K/uL Baso # (Auto) (0-0.2) K/uL Toxic Granulation Dohle Bodies Platelet Estimate (Normal) PT (9.0-12.0) Seconds INR (0.9-1.1) APTT (21.0-31.0) Seconds PTT Ratio ABG pH (7.35-7.45) ABG pCO2 (35-46) mmHg ABG pO2 (80-95) mm/Hg ABG HCO3 (19-24) mmol/L ABG O2 Saturation (90-95) % ABG Base Excess (-9-1.8) mEq/L Kong Test (Pos) VBG pH (7.36-7.41) Barometric Pressure mm/Hg Oxygen Given POC Sodium (135-144) mEq/L Sodium 126 L D (136-145) mmol/L POC Potassium (3.3-5.0) mEq/L Potassium 4.4 D (3.5-5.1) mmol/L POC Chloride (101-112) mEq/L Chloride 94 L (98-107) mmol/L Carbon Dioxide 21 (21-32) mmol/L POC Total CO2 (24-31) mEq/l Anion Gap 11.0 (3-11) POC Anion Gap (16-25) mmol/L POC BUN (7-18) mg/dl BUN 37 H (7-18) mg/dl Creatinine 1.79 H (0.6-1.2) mg/dl POC Creatinine (0.6-1.3) mg/dl Est Cr Clr Drug Dosing 37.5 ml/min Est GFR ( Amer) 41.5 Est GFR (Non-Af Amer) 35.8 BUN/Creatinine Ratio 20.5 H (10-20) Glucose 968 H* (70-99) mg/dl POC Glucose > 600 H* (70-99) POC Glucose (other) (70-99) mg/dl POC Lactic Acid Alli (0.90-1.70) mmol/L Lactate 1.5 (0.4-2.0) mmol/L Calcium 7.6 L (8.5-10.1) mg/dl POC Ioniz Calcium Miguel (1.12-1.32) mmol/l Phosphorus 4.9 (2.5-4.9) mg/dl Magnesium 2.4 (1.8-2.4) mg/dl Total Bilirubin (0.2-1) mg/dl AST (15-37) U/L ALT (12-78) U/L Alkaline Phosphatase (45-117) U/L Total Protein (6.4-8.2) gm/dl Albumin (3.4-5.0) gm/dl Globulin (2.5-4.0) gm/dl Albumin/Globulin Ratio (0.9-2) Beta-Hydroxybutyric Acd 5.89 H (0.2-2.81) mg/dl Urine Color Urine Appearance (Clear) Urine pH (4.5-7.5) Ur Specific [place] (1.000-1.030) Urine Protein (Negative) Urine Glucose (UA) (Negative) Urine Ketones (Negative) Urine Blood (Negative) Urine Nitrite (Negative) Urine Bilirubin (Negative) Urine Urobilinogen (Negative) Ur Leukocyte Esterase (Negative) Urine WBC (Auto) (0-5) /hpf Urine RBC (Auto) (0-4) /hpf U Hyaline Cast (Auto) (0-5) /lpf U Epithel Cells (Auto) (0-5) /lpf Urine Bacteria (Auto) (Negative) Amorphous Sediment (None Prsent) Influenza Type A (PCR) (Neg) Influenza Type B (PCR) (Neg) 10/07/18 10/07/18 10/07/18 Range/Units 15:31 17:10 17:39 WBC (4.8-10.8) K/uL RBC (4.2-5.4) M/uL Hgb (12.0-16.0) g/dL POC Hgb 11.2 L (12.0-16.0) g/dl Hct (37-47) % POC Hct 33 L (37-47) % MCV (80-100) fL MCH (25-34) pg MCHC (32-36) g/dL Plt Count (130-400) K/uL Immature Gran % (Auto) % Neut % (Auto) % Lymph % (Auto) % Slope % (Auto) % Eos % (Auto) % Baso % (Auto) % Immature Gran # (Auto) (0.00-0.02) K/uL Neut # (Auto) (1.4-6.5) K/uL Lymph # (Auto) (1.2-3.4) K/uL Slope # (Auto) (0.11-0.59) K/uL Eos # (Auto) (0-0.5) K/uL Baso # (Auto) (0-0.2) K/uL Toxic Granulation Dohle Bodies Platelet Estimate (Normal) PT (9.0-12.0) Seconds INR (0.9-1.1) APTT (21.0-31.0) Seconds PTT Ratio ABG pH (7.35-7.45) ABG pCO2 (35-46) mmHg ABG pO2 (80-95) mm/Hg ABG HCO3 (19-24) mmol/L ABG O2 Saturation (90-95) % ABG Base Excess (-9-1.8) mEq/L Kong Test (Pos) VBG pH 7.35 L (7.36-7.41) Barometric Pressure mm/Hg Oxygen Given POC Sodium 128 L (135-144) mEq/L Sodium (136-145) mmol/L POC Potassium 4.5 (3.3-5.0) mEq/L Potassium (3.5-5.1) mmol/L POC Chloride 94 L (101-112) mEq/L Chloride (98-107) mmol/L Carbon Dioxide (21-32) mmol/L POC Total CO2 20 L (24-31) mEq/l Anion Gap (3-11) POC Anion Gap 20.0 (16-25) mmol/L POC BUN 32 H (7-18) mg/dl BUN (7-18) mg/dl Creatinine (0.6-1.2) mg/dl POC Creatinine 1.2 (0.6-1.3) mg/dl Est Cr Clr Drug Dosing ml/min Est GFR ( Amer) Est GFR (Non-Af Amer) BUN/Creatinine Ratio (10-20) Glucose (70-99) mg/dl POC Glucose (70-99) POC Glucose (other) > 700 H* (70-99) mg/dl POC Lactic Acid Alli (0.90-1.70) mmol/L Lactate (0.4-2.0) mmol/L Calcium (8.5-10.1) mg/dl POC Ioniz Calcium Miguel 1.03 L (1.12-1.32) mmol/l Phosphorus (2.5-4.9) mg/dl Magnesium (1.8-2.4) mg/dl Total Bilirubin (0.2-1) mg/dl AST (15-37) U/L ALT (12-78) U/L Alkaline Phosphatase (45-117) U/L Total Protein (6.4-8.2) gm/dl Albumin (3.4-5.0) gm/dl Globulin (2.5-4.0) gm/dl Albumin/Globulin Ratio (0.9-2) Beta-Hydroxybutyric Acd (0.2-2.81) mg/dl Urine Color Urine Appearance (Clear) Urine pH (4.5-7.5) Ur Specific [place] (1.000-1.030) Urine Protein (Negative) Urine Glucose (UA) (Negative) Urine Ketones (Negative) Urine Blood (Negative) Urine Nitrite (Negative) Urine Bilirubin (Negative) Urine Urobilinogen (Negative) Ur Leukocyte Esterase (Negative) Urine WBC (Auto) (0-5) /hpf Urine RBC (Auto) (0-4) /hpf U Hyaline Cast (Auto) (0-5) /lpf U Epithel Cells (Auto) (0-5) /lpf Urine Bacteria (Auto) (Negative) Amorphous Sediment (None Prsent) Influenza Type A (PCR) Neg for Influ A (Neg) Influenza Type B (PCR) Neg for Influ B (Neg) 10/07/18 Range/Units 17:40 WBC (4.8-10.8) K/uL RBC (4.2-5.4) M/uL Hgb (12.0-16.0) g/dL POC Hgb (12.0-16.0) g/dl Hct (37-47) % POC Hct (37-47) % MCV (80-100) fL MCH (25-34) pg MCHC (32-36) g/dL Plt Count (130-400) K/uL Immature Gran % (Auto) % Neut % (Auto) % Lymph % (Auto) % Slope % (Auto) % Eos % (Auto) % Baso % (Auto) % Immature Gran # (Auto) (0.00-0.02) K/uL Neut # (Auto) (1.4-6.5) K/uL Lymph # (Auto) (1.2-3.4) K/uL Slope # (Auto) (0.11-0.59) K/uL Eos # (Auto) (0-0.5) K/uL Baso # (Auto) (0-0.2) K/uL Toxic Granulation Dohle Bodies Platelet Estimate (Normal) PT (9.0-12.0) Seconds INR (0.9-1.1) APTT (21.0-31.0) Seconds PTT Ratio ABG pH (7.35-7.45) ABG pCO2 (35-46) mmHg ABG pO2 (80-95) mm/Hg ABG HCO3 (19-24) mmol/L ABG O2 Saturation (90-95) % ABG Base Excess (-9-1.8) mEq/L Kong Test (Pos) VBG pH (7.36-7.41) Barometric Pressure mm/Hg Oxygen Given POC Sodium (135-144) mEq/L Sodium (136-145) mmol/L POC Potassium (3.3-5.0) mEq/L Potassium (3.5-5.1) mmol/L POC Chloride (101-112) mEq/L Chloride (98-107) mmol/L Carbon Dioxide (21-32) mmol/L POC Total CO2 (24-31) mEq/l Anion Gap (3-11) POC Anion Gap (16-25) mmol/L POC BUN (7-18) mg/dl BUN (7-18) mg/dl Creatinine (0.6-1.2) mg/dl POC Creatinine (0.6-1.3) mg/dl Est Cr Clr Drug Dosing ml/min Est GFR ( Amer) Est GFR (Non-Af Amer) BUN/Creatinine Ratio (10-20) Glucose 884 H* (70-99) mg/dl POC Glucose (70-99) POC Glucose (other) (70-99) mg/dl POC Lactic Acid Alli (0.90-1.70) mmol/L Lactate (0.4-2.0) mmol/L Calcium (8.5-10.1) mg/dl POC Ioniz Calcium Miguel (1.12-1.32) mmol/l Phosphorus (2.5-4.9) mg/dl Magnesium (1.8-2.4) mg/dl Total Bilirubin (0.2-1) mg/dl AST (15-37) U/L ALT (12-78) U/L Alkaline Phosphatase (45-117) U/L Total Protein (6.4-8.2) gm/dl Albumin (3.4-5.0) gm/dl Globulin (2.5-4.0) gm/dl Albumin/Globulin Ratio (0.9-2) Beta-Hydroxybutyric Acd 3.75 H (0.2-2.81) mg/dl Urine Color Urine Appearance (Clear) Urine pH (4.5-7.5) Ur Specific [place] (1.000-1.030) Urine Protein (Negative) Urine Glucose (UA) (Negative) Urine Ketones (Negative) Urine Blood (Negative) Urine Nitrite (Negative) Urine Bilirubin (Negative) Urine Urobilinogen (Negative) Ur Leukocyte Esterase (Negative) Urine WBC (Auto) (0-5) /hpf Urine RBC (Auto) (0-4) /hpf U Hyaline Cast (Auto) (0-5) /lpf U Epithel Cells (Auto) (0-5) /lpf Urine Bacteria (Auto) (Negative) Amorphous Sediment (None Prsent) Influenza Type A (PCR) (Neg) Influenza Type B (PCR) (Neg) Imaging Data Radiologist's Impression: Radiology results as stated below per my review and the radiologist's interpretation: XR chest 1V portable CLINICAL HISTORY: Sepsis COMPARISON STUDY: No previous studies for comparison. FINDINGS: The heart is normal in size. There are bilateral airspace opacities with a nodular component. Given the history of sepsis, the findings are likely infectious/inflammatory. Radiographic follow-up is recommended.[ IMPRESSION: Bilateral pulmonary airspace opacities with a nodular component. Given the clinical history, the findings are likely infectious/inflammatory. Radiographic follow-up is recommended. Electronically signed by: Aidan Kendrick M.D. 10/07/2018 12:55 PM ECG Data Attestation: I personally reviewed and interpreted this ECG as follows: Indication: tachycardia Rate (beats per minute): 125 Findings: + other (left atrial enlargement, QTC is 450); no acute ischemic change and no ectopy Blood Pressure Blood Pressure Findings: Normal blood pressure Blood Pressure Disposition: further management by hospitalist MDM Narrative This patient was evaluated and appeared to be critically ill. The patient is on supplemental O2, is tachypneic and tachycardic. Patient was hydrated with 2 L of normal saline solution. [id number] glucose is noted to be greater than 700. Chest x-ray was performed and is significant for bibasilar opacities. Given the patient's history of IV drug abuse, concern for aspiration. She was continued on IV hydration. Laboratory work reveals a glucose of 1200. Patient' s carbon dioxide is 20. I suspect the patient has limited her acidosis secondary to periodic insulin administration, although it is inadequate. Patient's IV drug abuse history is not likely helpful. Patient was given IV Zosyn and vancomycin after blood cultures were performed. She was started on an insulin drip. Case was discussed with the hospitalist service, Dr. Catalan , who will evaluate the patient for admission and further management. Patient was educated to the findings and agrees with the plan. Impression & Plan Aspiration into airway, Hyperglycemia, Hyponatremia, Type 1 diabetes, Drug abuse, IV Critical Care Time I have personally spent greater than 60 minutes of critical care time in the direct management of this patient. This includes bedside care, interpretation of diagnostic studies, and testing, discussion with consultants, patient, and family members, and other required patient management activities. This 60 minutes is in excess of all separately billable procedures. Critical Care Time: Yes Total Critical Care Time: 60 Discharge Plan Visit Data *Final* Discharge Date/Time: 10/07/18 19:45 Chief Complaint: Illness Other Complaint: Hyperglycemia Hypotension ED Provider: Princess Wilson Discharge Problem: Aspiration into airway, Hyperglycemia, Hyponatremia, Type 1 diabetes, Drug abuse, IV Patient Disposition: Admitted As Inpatient Discharge Instructions Interventions: ED Discharge Assessment Last Done: 10/07/18 19:45 The gloriaibe's documentation has been prepared under my direction and personally reviewed by me in its entirety. I confirm that the note above accurately reflects all work, treatment, procedures, and medical decision making performed by me.
[2018-10-07] MEDS ORDERED: INSULIN ASPART 100 UNITS/ML 3 ML PEN SC SCH (18:00)
[2018-10-07 18:07] LABS: Influenza A virus by PCR Neg for Influ A (Neg); Influenza B virus by PCR Neg for Influ B (Neg)
[2018-10-07 18:39] LABS: Potassium 4.4 mmol/L (3.5-5.1)
[2018-10-07] MEDS ORDERED: MoRPHine SULFATE 4 MG/ML 1 ML CARP\\VIAL IV PRN (20:18)
[2018-10-07] MEDS ORDERED: MoRPHine SULFATE 2 MG/ML CARP IV PRN ×2 (20:18→21:22)
[2018-10-07] MEDS ORDERED: MoRPHine SULFATE 2 MG/ML CARP ONE (20:22)
[2018-10-07] MEDS ORDERED: FAMOTIDINE 20MG/5ML IV PUSH IV STA (20:29)
[2018-10-07] MEDS ORDERED: FAMOTIDINE 20 MG in SYRINGE 3 ML IV ONE (20:30)
[2018-10-07 21:04] LABS: BUN Creatinine Ratio 20.9 (10-20); Calcium 7.5 mg/dl (8.5-10.1); Creatinine Clr Calc Pharmacy 35.9 ml/min; Est GFR (African American) 39.4; Magnesium 2.2 mg/dl (1.8-2.4); Potassium 4.5 mmol/L (3.5-5.1)
[2018-10-07 21:15] LABS: Phosphorus 3.2 mg/dl (2.5-4.9)
[2018-10-07] MEDS ORDERED: PIPERACILLIN/TAZOBACTAM 3.375 GM in DEXTROSE 5% 100 ML IV SCH (21:22)
[2018-10-07] MEDS ORDERED: PANTOprazole 40 MG in SYRINGE 0 ML IV SCH (21:22)
[2018-10-07] MEDS ORDERED: VANCOMYCIN HCL 1,000 MG in SODIUM CHLORIDE 0.9% 250 ML IV SCH (21:22)
[2018-10-07] MEDS: NSS + 20MEQ KCL 20 MEQ/1,000 ML BAG IV SCH (21:26)
[2018-10-07] MEDS: PANTOprazole 40 MG in SYRINGE 0 ML IV SCH (21:27)
[2018-10-07] MEDS ORDERED: PHARMACY GLYCEMIC MGMT CONSULT PRN (21:39)
[2018-10-07] MEDS ORDERED: INFLUENZA VIRUS QUAD VACCINE 0.5 ML SYR IM ONE (22:00)
[2018-10-07] MEDS ORDERED: INFLUENZA ADMINISTRATION CHARGE ONE (22:00)
[2018-10-07 22:26] LABS: Chol HDL Ratio 11; Cholesterol 100 mg/dl (0-200); HDL Cholesterol 9 mg/dl; LDL Cholesterol Calculated 46 mg/dl; Triglycerides 226 mg/dl (0-150); VLDL Cholesterol 45 mg/dl
[2018-10-07 22:29] LABS: BUN Creatinine Ratio 21.4 (10-20); Calcium 7.2 mg/dl (8.5-10.1); Creatinine Clr Calc Pharmacy 37.3 ml/min; Est GFR (African American) 41.2; Est GFR (Non-African American) 35.6; Magnesium 2.1 mg/dl (1.8-2.4); Phosphorus 2.5 mg/dl (2.5-4.9); Potassium 4.1 mmol/L (3.5-5.1)
[2018-10-07] MEDS: ACETAMINOPHEN 1000 MG/100 ML IV IV PRN (23:40)
[2018-10-07 23:43] LABS: BUN Creatinine Ratio 21.8 (10-20); Calcium 7.1 mg/dl (8.5-10.1); Creatinine Clr Calc Pharmacy 36.3 ml/min; Est GFR (African American) 39.9; Est GFR (Non-African American) 34.4; Potassium 4.1 mmol/L (3.5-5.1)
[2018-10-07 23:58] LABS: Hematocrit (blood only) 28.2 % (37-47); Hemoglobin 9.9 g/dL (12.0-16.0); Mean Corpuscular Hgb Conc 35.1 g/dL (32-36); Mean Corpuscular Volume 78.1 fL (80-100); Platelet Count 80 K/uL (130-400); RDW Coefficient of Variation 15.7 % (11.5-14.5); RDW Standard Deviation 45.6 fL (36.4-46.3); Red Blood Count 3.61 M/uL (4.2-5.4); White Blood Count 11.39 K/uL (4.8-10.8)
[2018-10-07 23:59] LABS: Basophils # (auto) 0.01 K/uL (0-0.2); Basophils % (auto) 0.1 %; Immature Granulocytes # (auto) 0.08 K/uL (0.00-0.02); Immature Granulocytes % (auto) 0.7 %; Lymphocytes # (auto) 0.99 K/uL (1.2-3.4); Lymphocytes % (auto) 8.7 %; Monocytes # (auto) 0.32 K/uL (0.11-0.59); Monocytes % (auto) 2.8 %; Neutrophils # (auto) 9.99 K/uL (1.4-6.5); Neutrophils % (auto) 87.7 %; RBC Morphology Unremarkable
[2018-10-08] MEDS: PENDING NSS+20mEq KCL IVF SCH ×4 (00:02→03:57)
[2018-10-08] MEDS: PENDING D5 1/2NS+20mEq KCL IVF SCH ×5 (00:02→09:23)
[2018-10-08] MEDS: INSULIN ASPART 100 UNITS/ML 3 ML PEN SC SCH ×6 (00:03→20:54)
[2018-10-08] MEDS ORDERED: Nursing to Pharmacy Communication ONE (00:05)
[2018-10-08 01:50] LABS: BUN Creatinine Ratio 20.7 (10-20); Creatinine Clr Calc Pharmacy 32.9 ml/min; Est GFR (African American) 35.5; Est GFR (Non-African American) 30.6; Potassium 4.1 mmol/L (3.5-5.1)
[2018-10-08] MEDS: INSULIN REGULAR 250 UNITS in SODIUM CHLORIDE 0.9% 247.5 ML IV SCH (01:57)
[2018-10-08] MEDS: NSS + 20MEQ KCL 20 MEQ/1,000 ML BAG IV SCH (03:00)
[2018-10-08 03:53] LABS: BUN Creatinine Ratio 22.2 (10-20); Calcium 7.2 mg/dl (8.5-10.1); Creatinine Clr Calc Pharmacy 33.9 ml/min; Est GFR (African American) 36.8; Est GFR (Non-African American) 31.7; Magnesium 2.2 mg/dl (1.8-2.4); Potassium 4.2 mmol/L (3.5-5.1)
[2018-10-08] MEDS: SODIUM CHLORIDE 0.9% 1000ML 1,000 ML IV SCH ×2 (03:55→03:56)
[2018-10-08 03:59] LABS: Phosphorus 3.2 mg/dl (2.5-4.9)
[2018-10-08] MEDS: PIPERACILLIN/TAZOBACTAM 4.5 GM in DEXTROSE 5% 100 ML IV SCH ×3 (04:12→20:04)
[2018-10-08] MEDS: D5W AND 1/2NSS + 20MEQ KCL 20 MEQ/1,000 ML BAG IV SCH ×2 (05:06→11:10)
[2018-10-08 05:59] LABS: Estimated Average Glucose 318 mg/dl
[2018-10-08] MEDS ORDERED: VANCOMYCIN CONSULT ACTIVE PRN (06:57)
[2018-10-08] MEDS ORDERED: VANCOMYCIN HCL 1,000 MG in SODIUM CHLORIDE 0.9% 500 ML IV SCH (07:00)
[2018-10-08] MEDS ORDERED: VANCOMYCIN HCL 1,000 MG in SODIUM CHLORIDE 0.9% 250 ML IV STA (07:14)
[2018-10-08 07:41] LABS: Hematocrit (blood only) 29.4 % (37-47); Hemoglobin 10.2 g/dL (12.0-16.0); Mean Corpuscular Hgb Conc 34.7 g/dL (32-36); Mean Corpuscular Volume 78.6 fL (80-100); RDW Coefficient of Variation 15.8 % (11.5-14.5); RDW Standard Deviation 45.7 fL (36.4-46.3); Red Blood Count 3.74 M/uL (4.2-5.4); White Blood Count 10.73 K/uL (4.8-10.8)
[2018-10-08 07:54] LABS: Mean Platelet Volume 11.6 fL (7.4-10.4); Platelet Count 69 K/uL (130-400)
[2018-10-08] MEDS: PANTOprazole 40 MG in SYRINGE 0 ML IV SCH ×2 (09:40→21:43)
[2018-10-08] MEDS ORDERED: MoRPHine SULFATE 10 MG/ML CARP/VIAL IV STA (12:19)
[2018-10-08] MEDS ORDERED: MoRPHine SULFATE 2 MG/ML CARP IV PRN (12:20)
--- NOTE | 2018-10-08 12:51 | Family Medicine Progress Note ---
Date of Service October 08, 2018 Assessment & Plan (1) Type 1 diabetes: Princess Katz is a 37 year old woman with a history of IV drug use who presented 10/07/18 with markedly polyuria, poor diabetes control, and intense pain with multiple foci. MRSA BACTEREMIA Two cultures positive for gram positive cocci Route of access most likely IV drug use MRSA PCR positive Covering with vancomycin at this time Ordered TTE to look for evidence of bacterial endocarditis Concern for septic joint pain will consult infectious disease and ortho surgery DKA Blood sugar 1220 on admission Causing extreme dehydration Given 2 L normal saline in ER Started DKA protocol with NSS 500 ml/hr and insulin to be titrated to target blood sugar Sugars have stabilized in mid 200's today Electrolytes are balanced Currently on 20meq KCl and d5w in 1/2 NSS Hyponatremia Eunatremic with correction of hyperglycemia and hypovolemia Hyperkalemia Resolved with IV insulin and correction of hypovolemia and hyperglycemia Extreme Multifocal Pain Opiate withdrawal vs septic joint vs pneumonia Morphine 4/6 mg q4h for moderate/severe pain control Consulting orthopedic surgery to look at painful left wrist and right shoulder joints Anemia Hemoglobin 10.5 on presentation 9.9 likely dilutional after aggressive rehydration Abdominal pain less on exam today Less suspicion for current GI bleed but will continue to monitor (FOBT and CBC in morning) Diabetes Will educate patient and encourage them to seek outpatient follow up and improve diabetes control A1C 12.7 IV drug use Will counselling psychologist patient on IV drug use cessation options. Maybe hospitalization will be shock patient needs to make a change DVT ppx No DVT ppx at this time with GI bleed concern Will reevaluate tomorrow morning with CBC, if no further sign of active bleeding will start on lovenox at that time COde: Full Code Diet: liquid Dispo: Tele (2) MRSA (methicillin resistant staph aureus) culture positive: (3) Abscess of forearm, right: (4) Drug abuse, IV: (5) Hyperglycemia: (6) Retroperitoneal abscess: Supervising Physician Co-Signing Physician Notes I personally examined the patient and verified all cotton points of history and exam, discussed case, and agree with decision making with Dr Infante. She still appears quite uncomfortable, but she notes she is actually feeling better than yesterday. She still has good deal of pain. Right shoulder left wrist and chest. Her belly does feel better. Vitals noted, in general she is awake and alert, appears to be uncomfortable but less distressed than last night. HEENT normal cephalic atraumatic mucous membranes are much more moist. Cardio is still a bit tachycardic but regular. Lungs are clear to auscultation bilaterally no rales rhonchi wheezes good effort. Abdomen is soft mild epigastric tenderness but far better than yesterday. Her right shoulder is exquisitely tender to palpation diffusely worse anteriorly but no effusion. Her left wrist is very tender to palpation and range of motion and there appears to be a small effusion although there is no erythema or warmth. Hyperglycemic dehydration�superimposed on uncontrolled type 1 diabetes�can reduce fluids as her dehydration is improved, continue IV insulin management for now likely transitioning to subcutaneous tomorrow. We will try to extensively educate once she is able to be more comfortable. Acute renal failure�appears to be due to above, however her last labs prior to this admission were quite a while ago. It is possible with her A1c of almost 13 % that her baseline creatinine is higher than before due to diabetic induced chronic kidney disease. It is also quite possible that she has an element of ATN superimposed on some degree of CKD related to her hyperglycemic dehydration and sepsis. Abdominal pain-fortunately she is not showing any ongoing GI bleed symptoms. This more than likely is upper GI pain related to her DKA nonspecifically, or indigestion. Anemia-this is fortunately overall stable, follow closely. MRSA bacteremia and septic emboli�continue vancomycin, for now continue Zosyn pending culture results and further clinical progress. Will consult infectious disease for assistance in the further workup and management of this overall, and consult orthopedics to assist in the workup especially of her shoulder and wrist. Given her IV drug abuse she may end up being a good candidate for Dalvance at discharge. Continue supportive care. Echocardiogram pending, if negative she will most certainly will need a SHELLEY. (late addendum - vegetation (+ ) but valve integrity intact) Pain�probably one-part withdrawal in 1 part septic emboli. Vancomycin and pain control. Hyponatremia�this corrected to normal, making it almost certainly all pseudohyponatremia. Uncontrolled type 1 diabetes�she will need extensive education about this IV drug abuse�education and supportive care. Nurse navigator has gotten her a phone number to get back into maintenance therapy. Thrombocytopenia and mild coagulopathy�possibly related to sepsis, continue supportive care follow closely. She shows no petechia no active bleeding. Continue antibiotics DVT prophylaxis�pharmacologic is risky given thrombocytopenia and coagulopathy. Fortunately she does not have any evidence of a GI bleed, but pharmacologic is strongly relatively contraindicated at this time and mechanical is of dubious benefit. Helder Salcedo is in a good deal of pain this morning. She tells me she is feeling better, and that her breathing seems better but her left wrist and her right shoulder and knee hurt a good deal. She tells me she has not received any of her prn pain medication to this point. Constitutional: + chills, + sweats, + body aches, + fatigue, + malaise and + weakness Respiratory: + cough and + pain with cough; no chest congestion, no hemoptysis, no pain on inspiration and no wheezing Cardiovascular: + chest pain (superior aspect of right chest and shoulder) and + chest pain at rest; no chest pain with activity, no palpitations, no syncope, no edema and no calf pain Gastrointestinal: no abdominal pain, no nausea and no vomiting Genitourinary (Female): + urinary frequency and + urinary incontinence; no dysuria, no difficulty urinating and no hematuria Physical Exam 2 Vital Signs (Past 24 Hours): Last Vital Signs Temp 37.2 C 10/08/18 11:00 Pulse 131 H 10/08/18 11:00 Resp 32 H 10/08/18 11:00 BP 123/77 10/08/18 11:00 Pulse Ox 91 10/08/18 11:00 Constitutional: well developed, well nourished, + ill appearing, + disheveled and + in distress; no altered mental status and + uncomfortable Eyes: PERRL, conjunctivae normal, anicteric sclerae Respiratory: normal respiratory effort; no respiratory distress and no labored breathing Auscultation: lungs clear to auscultation bilaterally Gastrointestinal (Abdomen): Inspection/Auscultation: abdomen normal to inspection; abdomen not distended Percussion/Palpation: abdomen soft; abdomen nontender _ (1) Type 1 diabetes Chronic kidney disease stage: Diabetes mellitus complication detail: Diabetes mellitus complication status: with hyperglycemia Diabetes mellitus macular edema: Diabetic retinopathy severity: Laterality: Proliferative retinopathy type: Qualified Code(s): E10.65 - Type 1 diabetes mellitus with hyperglycemia
[2018-10-08] MEDS ORDERED: INSULIN GLARGINE SOLOSTAR 100 UNITS/ML 3 ML PEN SC ONE (14:00)
--- NOTE | 2018-10-08 14:11 | Pharmacy Report ---
Glycemic Control Consultation - Date of Service October 08, 2018 - Scope Scope: Glycemic Pharmacist consulted by Dr Infante on 10/08/18 for glycemic control and to write orders per [facility] inpatient glycemic control protocol - Objective Weight: 66.1 kg Accuchecks BSG (last 24hrs): 10/07/18 10/07/18 10/07/18 14:32 15:30 15:31 Glucose 968 H* POC Glucose > 600 H* POC Glucose (other) > 700 H* 10/07/18 10/07/18 10/07/18 17:40 19:42 19:46 Glucose 884 H* POC Glucose > 600 H* > 600 H* POC Glucose (other) 10/07/18 10/07/18 10/07/18 20:27 20:27 21:39 Glucose 703 H* Cancelled 655 H* POC Glucose POC Glucose (other) 10/07/18 10/07/18 10/07/18 22:11 22:50 22:50 Glucose Cancelled 623 H* POC Glucose > 600 H* POC Glucose (other) 10/08/18 10/08/18 10/08/18 00:47 01:08 01:51 Glucose 498 H* POC Glucose 541 H* 442 H* POC Glucose (other) 10/08/18 10/08/18 10/08/18 02:51 03:23 03:53 Glucose 333 H POC Glucose 364 H* 309 H POC Glucose (other) 10/08/18 10/08/18 10/08/18 04:52 05:54 06:48 Glucose POC Glucose 219 H 236 H 286 H POC Glucose (other) 10/08/18 10/08/18 10/08/18 07:53 08:59 09:47 Glucose POC Glucose 231 H 232 H 290 H POC Glucose (other) 10/08/18 10/08/18 10/08/18 10:54 11:51 13:00 Glucose POC Glucose 246 H 237 H 256 H POC Glucose (other) Laboratory Data (last 24hrs): 10/07/18 10/07/18 10/07/18 15:30 17:40 20:27 Potassium 4.4 D 4.5 Carbon Dioxide 21 22 Anion Gap 11.0 9.0 Creatinine 1.79 H 1.87 H Est Cr Clr Drug Dosing 37.5 35.9 Beta-Hydroxybutyric Acd 5.89 H 3.75 H 1.04 10/07/18 10/07/18 10/08/18 21:39 22:50 01:08 Potassium 4.1 4.1 4.1 Carbon Dioxide 21 19 L 22 Anion Gap 9.0 11.0 7.0 Creatinine 1.80 H 1.85 H 2.04 H Est Cr Clr Drug Dosing 37.3 36.3 32.9 Beta-Hydroxybutyric Acd 1.07 0.88 0.76 10/08/18 03:23 Potassium 4.2 Carbon Dioxide 22 Anion Gap 5.0 Creatinine 1.98 H Est Cr Clr Drug Dosing 33.9 Beta-Hydroxybutyric Acd 0.75 HbA1c: Hemoglobin A1c 12.7 % (4.5-5.6) H 10/07/18 12:20 - Recent Pertinent Medications Outpatient Anti-diabetic Regimen: * Insulin glargine 32 units qAM * Novolog - unknown dose/schedule * A1c = 12.7 % on 10/07/18 The patient is currently receiving: * Insulin drip @ 4.1 units/hr Risk Factors for Insulin Resistance: * Infection: MRSA bacteremia, rule out endocarditis. On vancomycin and Zosyn * IVF: D5 1/2 NS KCl 20mEq/L @ 125 mL/hr (discontinuing @ 1400) * Diet: NPO to T1DM (starting at lunch today) - Assessment & Plan Assessment & Plan: ASSESSMENT: * 37 yo F with T1DM admitted with DKA and MRSA bacteremia * Outpatient control of T1DM poor based on A1c of 12.7%. I am concerned for non -adherence which may have caused *prescribed* increases in basal insulin with variable *administration* of basal insulin. Thus, patient's requirements for basal insulin may be less inpatient. However, DKA also increases insulin resistance and therefore it is also possible that her needs may be increased as compared to outpatient dose * Difficult to use insulin drip rate as a gauge for basal requirements as patient has also been on dextrose infusion. Therefore will select low dose of Lantus initially to prevent hypoglycemia - this may be insufficient to transition patient off of the insulin drip thus will not execute insulin drip transition orders at this time * Spoke w Dr. Infante - dextrose infusion to discontinue, diet to be ordered , and OK to attempt transition off of insulin drip * Criteria for insulin drip transition (all of the below) * BSG in goal range x2 consecutive checks * Insulin drip rate less than 1 unit/hr * At or after 10/08 @ 1999 (6 hr after Lantus scheduled) PLAN FOR INPATIENT GLYCEMIC CONTROL: * Basal insulin: Lantus 15 units x1 now * Continue insulin drip for now, until patient meets criteria for transition above * Please note that the plan above was derived based on current level of insulin resistance and hospital stress. These recommendations are appropriate for inpatient admission only. Plan of care upon discharge will need to be reassessed to avoid potential outpatient hypo/hyperglycemia. Thank you.
--- NOTE | 2018-10-08 14:22 | Pharmacy Report ---
Pharmacy Abx Dose Short Note - Date of Service October 08, 2018 - Assessment & Plan Assessment * 37 year old F receiving Zosyn and vancomycin for treatment of MRSA bacteremia * SCr with significant elevation, but mostly stable since yesterday. * Vancomycin random level subtherapeutic this AM at 11.7 mcg/mL - 15 mg/kg dose x1 STAT administered * Repeat random level drawn 5 hours after dose this AM surprisingly lower than expected at 23.8 mcg/mL - patient may be clearing vancomycin faster than SCr would suggest * Will order another dose of vancomycin 15 mg/kg to be administered 12 hours after dose this AM * Repeat random vancomycin level with AM labs tomorrow Plan Vancomycin * 1000 mg IV x1 @ 2000 * Random level with AM labs 10/09/18 Pharmacy will continue to follow and will adjust dose/frequency as necessary. Thank you.
--- NOTE | 2018-10-08 14:26 | CT Scan Report ---
CT chest wo con CT DOSE: 203.54 mGy.cm CLINICAL HISTORY: 37 years-old Female with bacteremia, ?LLL infiltrate. Acute shortness of breath wi th bacteremia TECHNIQUE: Multiaxial CT images of the chest were performed without contrast. A dose lowering techni que was utilized adhering to the principles of ALARA. COMPARISON: Chest radiograph of same day, CT abdomen and pelvis 12/15/2017 FINDINGS: No dominant thyroid nodule identified. Prominent bilateral axillary and subpectoral lymph nodes measu re up to 9 mm. Additionally, prominent subcarinal, AP window and hilar lymph nodes are seen, limited evaluation without the use of IV contrast. Heart is normal in size with trace pericardial effusion. N o aortic aneurysm identified. Small bilateral pleural effusions. No pneumothorax. Bilateral intralobular septal thickening is noted in conjunction with thickening of the bronchovascular bundles. Dependent bibasilar consolidation wit h air bronchograms. Additionally, there are multiple peripherally oriented consolidations and pulmona ry nodules with central lucencies measuring up to 2.0 cm. Central airways appear patent. No acute process of the imaged upper abdomen. Mild generalized body wall edema. Bones appear to be in tact. IMPRESSION: 1. Small bilateral pleural effusions with mild pulmonary edema. 2. Multifocal peripherally oriented nodular and consolidative opacities, many of which demonstrate ce ntral cavitation are suggestive of septic emboli. 3. Bibasilar consolidative opacities suggest atelectasis or pneumonitis. 4. Mild axillary and mediastinal adenopathy, likely reactive. Electronically signed by: North Nelson M.D. 10/08/2018 2:25 PM
--- NOTE | 2018-10-08 14:48 | XRay Report ---
XR shoulder RT min 2V routine CLINICAL HISTORY: pain COMPARISON: None. DISCUSSION: No acute processes of the right shoulder. Multinodular appearance to the right hemithorax . This has been described previously. There is no evidence for soft tissue swelling. IMPRESSION: No acute process right shoulder. Diffuse nodularity right hemithorax discussed in the pat ient's prior CT study. The above report was generated using voice recognition software. It may contain grammatical, syntax or spelling errors. Electronically signed by: Franco Zuniga M.D. 10/08/2018 2:47 PM
--- NOTE | 2018-10-08 15:07 | XRay Report ---
XR wrist LT min 3V routine HISTORY: 37 years-old Female pain acute left-sided wrist pain COMPARISON: None available TECHNIQUE: 4 views of the left wrist FINDINGS: No acute fracture, dislocation, significant degenerative changes or opaque foreign body. Mild dorsal wrist and hand soft tissue prominence. IMPRESSION: No acute fracture or dislocation. The above report was generated using voice recognition software. It may contain grammatical, syntax o r spelling errors. Electronically signed by: North Nelson M.D. 10/08/2018 3:06 PM
--- NOTE | 2018-10-08 16:43 | Orthopedic Consultation ---
Date of Consultation October 08, 2018 Assessment & Plan (1) Wrist pain, left: She was seen and examined by Dr. Medrano today as well. She has diffuse swelling and tenderness of her wrist and hand. xrays were negative. No specific localized area to attempt aspiration at this time. At this point we did recommend MRI of the left wrist and right shoulder to see if there is any fluid/ localized abscess to aspirate. We'll see how her joint pain responds with the IV antibiotics. Right now she was only c/o the left wrist and right shoulder. (2) Right shoulder pain: History of Present Illness Reason for Consultation: Left wrist pain Attending Physician: Carroll Le DO History of Present Illness Princess is a 37 y/o female with diabetes and history of IV drug use. She was admitted yesterday in DKA and complaining of left wrist, right shoulder, knee and ankle pain. xrays were obtained of her wrist and shoulder. Blood cultures have been positive for staph aureus with sensitivities to follow. Presently she is complaining of left wrist and right shoulder pain. She recalls injecting her left hand area twice last week on the dorsal side. No injections around the right shoulder area. Both have been hurting for about a week. Allergies Allergy/AdvReac Type Severity Reaction Status Date / Time iodine Allergy Severe RASH Verified 10/07/18 13:01 Iodinated Contrast- Oral and Allergy Unknown RASH Verified 10/07/18 13:01 IV Dye Home Medications Home Medications Medication Instructions Recorded Confirmed Type buprenorphine HCl 8 mg SUBLINGUAL BID 10/07/18 10/07/18 History insulin aspart U-100 [Novolog 1 dose SUBCUT DIRECTED 10/07/18 10/07/18 History Flexpen U-100 Insulin] insulin glargine [Basaglar KwikPen 32 units SUBCUT QAM 10/07/18 10/07/18 History U-100 Insulin] Patient History Social History Current Living Situation: Family Current Living Situation Comment: LIVES ALONE WITH CHILDREN. Other Information That Helps Us Care for You: No Feels Safe at Home: Yes Safety Concerns: Feels Safe At This Time Smoking Status: Current every day smoker Tobacco Type: cigarettes Cigarettes per Day: 10 Do You Dip or Chew Tobacco: No Second Hand Exposure: Yes Tobacco Cessation Education Requested by Patient: Yes Hx Alcohol Use: No Hx Substance Use: Yes substance use type: marijuana, IV drugs, methamphetamine and other Substance Use Type Other:: SUBUTEX Last Used Substance: Days (ago) Last Used Substance Other:: SUNDAY Beliefs That Will Affect Care: None Preferred Language: Ukrainian Communication Ability: Effective Network Coordinator Required: Yes Physical Exam 2 Vital Signs (Past 24 Hours): Last Vital Signs Temp 37.2 C 10/08/18 11:00 Pulse 131 H 10/08/18 11:00 Resp 32 H 10/08/18 11:00 BP 123/77 10/08/18 11:00 Pulse Ox 91 10/08/18 11:00 Musculoskeletal: She is alert. She appears in obvious discomfort. No detectable swelling/effusion of the right shoulder. She has pain in her shoulder with gentle ROM and very limited active ROM. She has diffuse tenderness and swelling of the left wrist and dorsal hand. She is able to gently flex/extend her fingers. She has pain with any motion of the left wrist. No open or draining areas around the wrist or hand.
[2018-10-08] MEDS ORDERED: VANCOMYCIN HCL 1,000 MG in SODIUM CHLORIDE 0.9% 250 ML IV ONE (20:00)
[2018-10-08] MEDS: MoRPHine SULFATE 4 MG/ML 1 ML CARP\\VIAL IV PRN (21:38)
[2018-10-08] MEDS: [UNRECOGNIZED DRUG - OTHER] SCH (21:43)
--- NOTE | 2018-10-08 23:49 | Progress Note ---
DATE: 10/08/2018 ADDENDUM SUBJECTIVE: A 37-year-old female with a long history of IV drug use, admitted with Staph bacteremia/septicemia. She has had multiple musculoskeletal aches and pains and we are consulted for evaluation. Currently, she is complaining only of right shoulder pain and left wrist and hand pain. She does report injections into her left hand in the not too distant past. OBJECTIVE: On exam, she has got marked swelling of her left hand. It is diffuse. There are no loculated fluid collections. She can flex and extend her fingers appropriately with some moderate pain. She can flex and extend her wrist with some moderate pain. There is some clear diffuse soft tissue swelling, little bit of dorsal redness on the mid aspect of the hand. Once again no loculated fluid collections. Exam of right shoulder reveals diffuse tenderness everywhere. There is no objective swelling. She really refused to move her shoulder much. X-RAYS: X-rays of both wrists and shoulder are reviewed. Showed some soft tissue swelling. No obvious signs of bony abnormalities. ASSESSMENT: A 37-year-old female, long-term IV drug user with Staphylococcus aureus bacteremia/septicemia with multiple musculoskeletal aches. Her symptoms seem to vary considerably as she has had multiple other complaints, but now just complaining of right shoulder and left wrist pain. Objectively, she has clearly had some swelling of her left wrist and hand, but no obvious loculated fluid collections or abscesses. Very minimal findings in her shoulder, I could just do limited exam due to pain and just not willing to cooperate. It is very difficult to assess this patient as her symptoms tend to vary from time to time and pain is a bit out of proportion to any objective findings. There are no obvious signs of joints infection. PLAN: Considering all of this and the situation of very difficult time in evaluating her, we are going to get an MRI of her left wrist and hand to make sure there are no fluid collections or abscesses in the same with her shoulder. If there is any fluid collection, we may consider aspiration. In the meantime, discontinue IV antibiotics and were to follow up with serial exams. TORRIE
[2018-10-09] MEDS: [UNRECOGNIZED DRUG - OTHER] SCH (01:34)
[2018-10-09] MEDS: MoRPHine SULFATE 4 MG/ML 1 ML CARP\\VIAL IV PRN (03:34)
[2018-10-09] MEDS: PIPERACILLIN/TAZOBACTAM 4.5 GM in DEXTROSE 5% 100 ML IV SCH (03:39)
[2018-10-09] MEDS: INSULIN REGULAR 250 UNITS in SODIUM CHLORIDE 0.9% 247.5 ML IV SCH (04:28)
[2018-10-09] MEDS ORDERED: INSULIN ASPART 100 UNITS/ML 3 ML PEN SC SCH (06:00)
[2018-10-09 06:52] LABS: Mean Corpuscular Hgb Conc 34.5 g/dL (32-36)
[2018-10-09 07:00] LABS: Hematocrit (blood only) 27.5 % (37-47); Hemoglobin 9.5 g/dL (12.0-16.0); Mean Corpuscular Volume 78.6 fL (80-100); RDW Coefficient of Variation 16.5 % (11.5-14.5); RDW Standard Deviation 47.2 fL (36.4-46.3)
[2018-10-09 07:02] LABS: INR 1.5 (0.9-1.1); Prothrombin Time 14.7 Seconds (9.0-12.0)
[2018-10-09 07:07] LABS: Platelet Count 54 K/uL (130-400)
--- NOTE | 2018-10-09 07:09 | Magnetic Resonance Report ---
MR shoulder RT wo con CLINICAL HISTORY: Right shoulder pain. Possible septic joint. COMPARISON STUDY: Commensurate radiographic study dated 10/08/2018 FINDINGS: Imaging was acquired in the axial, sagittal, and coronal planes. There are no areas of marrow edema to indicate occult fracture, bone bruise, or osteomyelitis. There is rotator cuff tendinopathy. There is a small bursal surface partial tear. There is no evidenc e for a full-thickness tear. The bicipital tendon appears intact. No labral tears are visualized. There is a moderate amount of fluid within subacromial and subdeltoid bursa. Minimally complex. There is mild adjacent soft tissue edema. There is a tiny joint effusion. IMPRESSION: 1. Tiny joint effusion. No pathologic marrow edema. Septic arthritis is not likely, given the lack of significant joint effusion and marrow edema. 2. Moderate amount of fluid within the subacromial and subdeltoid bursa, minimally complex 3. Rotator cuff tendinopathy. Small bursal surface partial tear. No tendinous retraction. Electronically signed by: Aidan Kendrick M.D. 10/09/2018 7:07 AM
[2018-10-09 07:12] LABS: Basophils # (auto) 0.04 K/uL (0-0.2); Basophils % (auto) 0.2 %; Dohle Bodies 3+; Echinocytes 1+; Eosinophils # (auto) 0.05 K/uL (0-0.5); Eosinophils % (auto) 0.3 %; Immature Granulocytes # (auto) 0.12 K/uL (0.00-0.02); Immature Granulocytes % (auto) 0.7 %; Lymphocytes # (auto) 1.84 K/uL (1.2-3.4); Lymphocytes % (auto) 11.4 %; Monocytes # (auto) 0.61 K/uL (0.11-0.59); Monocytes % (auto) 3.8 %; Neutrophils # (auto) 13.54 K/uL (1.4-6.5); Neutrophils % (auto) 83.6 %; Toxic Granulation 2+
--- NOTE | 2018-10-09 07:30 | Family Medicine Progress Note ---
Date of Service October 09, 2018 Assessment & Plan (1) Right shoulder pain: (2) Wrist pain, left: (3) Type 1 diabetes: Princess Katz is a 37 year old woman with a history of IV drug use who presented 10/07/18 with markedly polyuria, poor diabetes control, and intense pain with multiple foci. MRSA BACTEREMIA Two cultures from time of admission positive for gram positive cocci Route of access most likely IV drug use MRSA PCR positive Covering with vancomycin at this time Tricuspid valve endocarditis, lungs with septic emboli and likely multiple joins infected Will draw more blood cultures per ID recommendations to show bacteremia cleared Continue IV vanc RENAL INJURY Patient oliguric today only passing .21 ml/kg/hr this morning Creatinine risen from 1.85 on admission to 3.25 Potentially prerenal ATN vs intrinsic damage to Kidney from septic emboli and infection. Will review FENA and continue to monitor INFECTIVE ENDOCARDITIS Valve appears to still be functional very mild tricuspid regurgitation per cardiology Continuing IV vancomycin Patient will need terminal worker IV anti MRSA coverage, complicated by her ongoing IV drug use Will phone counselor ID for terminal worker treatment options DKA Blood sugar 1220 on admission Sugars have stabilized, transitioned to subcutaneous insulin from IV, 193 this morning Extreme Multifocal Pain Ortho recommended MRI of L wrist and Right shoulder and serial exams. MRI showed no definitive evidence for infected joint spaces. Morphine 4/6 mg q4h for moderate/severe pain control Anemia Hemoglobin 10.5 on presentation 9.5 today likely dilutional after aggressive rehydration Less suspicion for current GI bleed but will continue to monitor Diabetes Will continue to educate patient and encourage them to seek outpatient follow up and improve diabetes control A1C 12.7 IV drug use Will phone counselor patient on IV drug use cessation options. Hopefully hospitalization will be shock patient needs to make a change DVT ppx No DVT ppx at this time with GI bleed concern Will reevaluate tomorrow morning with CBC, if no further sign of active bleeding will start on lovenox at that time COde: Full Code Diet: liquid Dispo: Tele (4) MRSA (methicillin resistant staph aureus) culture positive: (5) Infective endocarditis: (6) Drug abuse, IV: Supervising Physician Co-Signing Physician Notes I personally examined the patient and verified all cotton points of history and exam, discussed case, and agree with decision making with Dr Infante. seen twice. this AM new back pain. L sided. otherwise feels a little better but still bad. breathing somewhat short - cough and sputum. very sore throat. hurts to swallow. later revisited - tachycardic and tachypnic - notes to me she feels about the same Vitals noted, in general she is awake and alert, appears to be uncomfortable but less distressed than last night. HEENT normal cephalic atraumatic mucous membranes are much more moist. throat w diffuse erythema and white patchy exudate c/w thrush. Cardio is still a bit tachycardic but regular. Lungs are clear to auscultation bilaterally scattered rhonchi no rales, wheezes good effort. Abdomen is soft mild epigastric tenderness ongoing improvement. L CVA tenderness no vertebral tenderness Hyperglycemic dehydration�and uncontrolled type 1 diabetes�continue insulin management, follow and continue to adjust fluid support. Acute renal failure�suddenly, and fairly dramatically worse today. The differential for the worsening would be ATN from all of her admitting problems, versus renal infarct from her septic emboli, versus worsening prerenal (which seems the least likely given the fluid volume she is been given.) Check fractional excretion of sodium, repeat UA for casts, renal ultrasound. If anything appears prerenal escalate fluids, otherwise supportive care and time Abdominal pain-fortunately she is not showing any GI bleed symptoms. This more than likely is upper GI pain related to her DKA nonspecifically, indigestion, or referred pain from her septic emboli Anemia-this is fortunately overall stable, follow closely. MRSA bacteremia and septic emboli complicated by endocarditis, probably septic wrist with tenosynovitis, and now concern on septic infarction of her left kidney�continue vancomycin (with her worsening renal failure, it is likely too soon to be vancomycin mediated, but we will need to continue to follow this closely, and consider to adjust antibiotic coverage if needed, although given the diffuse nature of her infection vancomycin will provide the best overall tissue penetration), for now continue Zosyn pending culture results and further clinical progress. Appreciate ID and Ortho assistance. given her IV drug abuse she may end up being a good candidate for Dalvance at discharge. Continue supportive care. ) Pain�probably one-part withdrawal in 1 part septic emboli. Vancomycin and pain control. Encourage is somewhat more liberal use of pain control for now Acute hypoxia�related to her pulmonary septic emboli. Antibiotics and supportive care Hyponatremia�this corrected to normal, making it almost certainly all pseudohyponatremia. Uncontrolled type 1 diabetes�she will need extensive education about this IV drug abuse�education and supportive care. Nurse navigator has gotten her a phone number to get back into maintenance therapy. Thrombocytopenia and mild coagulopathy�possibly related to sepsis, continue supportive care follow closely. She shows no petechiae no active bleeding. Continue antibiotics, continue to follow counts. Give vitamin K and repeat in the morning DVT prophylaxis�pharmacologic is risky given thrombocytopenia and coagulopathy. Fortunately she does not have any evidence of a GI bleed, but pharmacologic is strongly relatively contraindicated at this time and mechanical is of dubious benefit. Helder Katz was sleeping this morning when I came in. On waking, she was in a good deal of discomfort complaining of pain in her wrist shoulder chest and back. She says her shortness of breath is improved but she doesn't want to move because it feels like an elephant is sitting on her chest. She was feeling febrile with chills last night, but is not experiencing that this morning. Constitutional: + chills, + sweats, + body aches, + fatigue, + malaise and + weakness Respiratory: + cough and + pain with cough; no chest congestion, no hemoptysis, no pain on inspiration and no wheezing Cardiovascular: + chest pain (superior aspect of right chest and shoulder) and + chest pain at rest; no palpitations, no syncope, no edema and no calf pain Physical Exam 2 Vital Signs (Past 24 Hours): Last Vital Signs Temp 38.0 C H 10/09/18 02:47 Pulse 133 H 10/09/18 02:47 Resp 32 H 10/09/18 02:47 BP 128/82 10/09/18 02:47 Pulse Ox 96 10/09/18 02:47 Constitutional: + acute distress, + ill appearing, + disheveled, cooperative and + in distress Respiratory: normal respiratory effort; no respiratory distress, no labored breathing and does not use accessory muscles Auscultation: + diminished lung sounds (lower lung pink) and + crackles (Lower lung pink); no rales, no rhonchi and no wheezes Cardiovascular: RRR, no murmur, no edema Gastrointestinal (Abdomen): Inspection/Auscultation: abdomen normal to inspection; abdomen not distended Percussion/Palpation: abdomen soft; abdomen nontender Skin: Multiple bug bites on lower legs b/l possible osler's node on left hand lateral aspect of left thumb _ (1) Type 1 diabetes Chronic kidney disease stage: Diabetes mellitus complication detail: Diabetes mellitus complication status: with hyperglycemia Diabetes mellitus macular edema: Diabetic retinopathy severity: Laterality: Proliferative retinopathy type: Qualified Code(s): E10.65 - Type 1 diabetes mellitus with hyperglycemia
[2018-10-09 07:33] LABS: Albumin Level 1.4 gm/dl (3.4-5.0); BUN Creatinine Ratio 19.6 (10-20); Calcium 7.4 mg/dl (8.5-10.1); Creatinine Clr Calc Pharmacy 24.1 ml/min; Est GFR (African American) 21.5; Est GFR (Non-African American) 18.5; Potassium 4.9 mmol/L (3.5-5.1)
[2018-10-09 07:36] LABS: Albumin Globulin Ratio 0.3 (0.9-2); Globulin 4.5 gm/dl (2.5-4.0); Total Protein 5.9 gm/dl (6.4-8.2)
--- NOTE | 2018-10-09 07:41 | Magnetic Resonance Report ---
MR wrist LT wo con CLINICAL HISTORY: 37 years-old Female with Concern of septic joint. Patient presents with septic emb royce and acute left wrist swelling. History of IV drug abuse. COMPARISON: Left wrist radiographs October 08, 2018. TECHNIQUE: Multiplanar, multi sequence MRI of the left wrist was performed without intravenous contra st. FINDINGS: Motion degraded exam. EXTRINSIC LIGAMENTS: The volar extrinsic ligaments including the [id number] and radio-marin o-triquetral ligaments are grossly intact. INTRINSIC LIGAMENTS: The scapholunate and lunotriquetral ligaments are intact and unremarkable in ap pearance. No evidence of scapholunate or lunotriquetral interval widening. TFCC: Ill-defined mildly increased T2 signal noted about the articular disc suggesting degeneration and/or artifact without evidence of discrete acute tear. Otherwise, the triangulofibrocartilage compl ex is preserved including the meniscal homologue, the extensor carpi ulnaris tendon, the volar and do rsal distal radioulnar ligaments and the ulnolunate and ulnotriquetral ligaments. BONE MARROW: Minimal bone marrow edema noted about the base of the first metacarpal and also within the trapezium, likely on a degenerative basis. No fracture, edema, or focal marrow replacement proce ss. JOINT SPACES: Joint spaces are generally well maintained. Mild marginal spurring about the first ca rpal metacarpal joint. No focal articular cartilage loss or osteochondral lesion. No erosive changes. Trace joint effusion. CARPAL TUNNEL: Moderate fluid surrounds the flexor pollicis longus tendon extending from the level o f the distal radius distally outside the [id number]-[id number]-flfv past the metacarpophalangeal joint. Otherwise, the contents of the carpal tunnel are unremarkable in appearance without evidence of carpal tunnel s yndrome. The remaining flexor tendons and median nerve are unremarkable in appearance. The flexor r etinaculum is unremarkable. The ulnar nerve appears unremarkable. EXTENSOR TENDONS: Extensive tenosynovitis about the extensor tendons, notably within the second and f ourth compartments. No evidence of tendon tear. SOFT TISSUES: Extensive subcutaneous and deep tissue edema about the imaged distal forearm, wrist an d hand, most pronounced dorsally. No drainable fluid collection. IMPRESSION: 1. Motion degraded exam. 2. Trace joint effusion without definitive evidence of septic arthropathy. 3. Extensive subcutaneous and deep tissue edema about the forearm, wrist and hand. Differential consi derations would include cellulitis, venous stasis or lymphedema. 4. Extensive tenosynovitis about the second and fourth extensor compartments and flexor pollicis long us, possibly reactive or infectious in etiology. The above report was generated using voice recognition software. It may contain grammatical, syntax o r spelling errors. Dictated: 10/09/2018 7:22 AM Transcribed: 10/09/2018 7:41 AM Sahra [id number] [email or web address] Electronically signed by: North Nelson M.D. 10/09/2018 8:05 AM
[2018-10-09] MEDS ORDERED: PHYTONADIONE 5 MG TAB PO STA ×2 (08:15→16:48)
--- NOTE | 2018-10-09 08:27 | Infectious Disease Consult ---
Date of Consultation October 09, 2018 Assessment & Plan (1) Infective endocarditis: 37-year-old female with history of active drug abuse with MRSA associated tricuspid valve endocarditis with septic pulmonary emboli and probably seeding of multiple joints as well. Patient should be continued on vancomycin given potential of pulmonary involvement as daptomycin ineffective in this situation. Will discontinue Zosyn. Would obtain follow-up blood cultures to ensure clearance of bacteremia. Patient will require prolonged IV antibiotic therapy, but this is made difficult by active drug abuse. May need to explore the use of IV dalbavancin off label. Will discuss with all involved. Will follow. (2) MRSA (methicillin resistant Staphylococcus aureus) septicemia: History of Present Illness Reason for Consultation: MRSA bacteremia, septic emboli Attending Physician: Carroll Le DO History of Present Illness 37-year-old female with history of active IV drug abuse was admitted to the hospital on October 07 with 1 week history of progressively worsening weakness, fever, dehydration, with severe pain in shoulder, hand, and knee. Was found to be in DKA, and now blood cultures have returned positive for MRSA. Had echocardiogram done which showed presence of large tricuspid valve vegetation. Patient still feeling miserable with pain rated 10 out of 10 in intensity in multiple sites especially her abdomen. Has been afebrile last 24 hours. Currently on vancomycin and Zosyn. Has had chest CT, read by me, which shows evidence of multiple septic emboli. Allergies Allergy/AdvReac Type Severity Reaction Status Date / Time iodine Allergy Severe RASH Verified 10/07/18 13:01 Iodinated Contrast- Oral and Allergy Unknown RASH Verified 10/07/18 13:01 IV Dye Home Medications Home Medications Medication Instructions Recorded Confirmed Type buprenorphine HCl 8 mg SUBLINGUAL BID 10/07/18 10/07/18 History insulin aspart U-100 [Novolog 1 dose SUBCUT DIRECTED 10/07/18 10/07/18 History Flexpen U-100 Insulin] insulin glargine [Basaglar KwikPen 32 units SUBCUT QAM 10/07/18 10/07/18 History U-100 Insulin] Patient History Medical History Type 1 diabetes (Chronic) MRSA (methicillin resistant staph aureus) culture positive (Chronic) Abscess of forearm, right Drug abuse, IV (Acute) Hyperglycemia (Resolved) Retroperitoneal abscess Social History Current Living Situation: Family Current Living Situation Comment: LIVES ALONE WITH CHILDREN. Other Information That Helps Us Care for You: No Feels Safe at Home: Yes Safety Concerns: Feels Safe At This Time Smoking Status: Current every day smoker Tobacco Type: cigarettes Cigarettes per Day: 10 Do You Dip or Chew Tobacco: No Second Hand Exposure: Yes Tobacco Cessation Education Requested by Patient: Yes Hx Alcohol Use: No Hx Substance Use: Yes substance use type: marijuana, IV drugs, methamphetamine and other Substance Use Type Other:: SUBUTEX Last Used Substance: Days (ago) Last Used Substance Other:: SUNDAY Beliefs That Will Affect Care: None Preferred Language: [place]an Communication Ability: Effective Material Requirements Worker Required: Yes Review of Systems Constitutional: + fever, + chills, + body aches, + fatigue and + weakness Eyes: no problem reported Ear, Nose, Mouth, Throat: + sore throat and + hoarseness Respiratory: + dyspnea; no hemoptysis Cardiovascular: + chest pain Gastrointestinal: + abdominal pain and + nausea Genitourinary (Female): no problem reported Musculoskeletal: as per Subjective / HPI Integumentary: no problem reported Neurologic: no problem reported Psychiatric: no problem reported Endocrine: as per Subjective / HPI Hematologic / Lymphatic: no problem reported Allergy / Immunological: no problem reported Physical Exam 2 Vital Signs (Past 24 Hours): Last Vital Signs Temp 37 C 10/09/18 07:47 Pulse 116 H 10/09/18 07:47 Resp 25 H 10/09/18 07:47 BP 120/80 10/09/18 07:47 Pulse Ox 94 10/09/18 07:47 Constitutional: + acute distress, + ill appearing and + thin Eyes: PERRL, conjunctivae normal, anicteric sclerae ENMT: external ear and nose normal, oropharynx normal Neck: trachea midline, no thyromegaly neck nontender Respiratory: + respiratory distress (Mild), normal percussion and + tachypneic Auscultation: + rales Cardiovascular: Rate/Rhythm: regular rate and regular rhythm Heart Sounds: + murmur (Systolic) Gastrointestinal (Abdomen): Inspection/Auscultation: abdomen normal to inspection and normal bowel sounds Percussion/Palpation: + abdomen tender; no hepatosplenomegaly and no abdominal mass Musculoskeletal: no cyanosis or clubbing, extremities motor strength 5/5 Head/Neck/Chest: normocephalic and head atraumatic Skin: no rashes, warm and dry Neurologic: moves all extremities and awake; no focal motor deficits Psychiatric: A+Ox3, euthymic affect Lymphatic: no cervical or axillary lymphadenopathy no inguinal lymphadenopathy Results & Data Laboratory Results Short CBC 10/09/18 Range/Units 06:43 WBC 16.20 H (4.8-10.8) K/uL Hgb 9.5 L (12.0-16.0) g/dL Hct 27.5 L (37-47) % Plt Count 54 L (130-400) K/uL BMP 10/09/18 06:36 Sodium 131 L Potassium 4.9 D Chloride 106 Carbon Dioxide 17 L BUN 61 H Creatinine 3.09 H D Glucose 193 H Calcium 7.4 L Liver Function 10/09/18 Range/Units 06:36 Total Bilirubin 1.0 (0.2-1) mg/dl AST 14 L (15-37) U/L ALT 8 L (12-78) U/L Alkaline Phosphatase 210 H (45-117) U/L Albumin 1.4 L (3.4-5.0) gm/dl Diagnostic Findings Microbiology 10/07/18 12:26 Blood Blood Culture - Preliminary Staph aureus MRSA 10/07/18 13:54 Blood Blood Culture - Preliminary Staph aureus MRSA 10/07/18 13:00 Urine,Straight Cath Urine Culture - Preliminary No growth - Less than 1,000 colonies/mL, Final report to follow. CT chest wo con CT DOSE: 203.54 mGy.cm CLINICAL HISTORY: 37 years-old Female with bacteremia, ?LLL infiltrate. Acute shortness of breath with bacteremia TECHNIQUE: Multiaxial CT images of the chest were performed without contrast. A dose lowering technique was utilized adhering to the principles of ALARA. COMPARISON: Chest radiograph of same day, CT abdomen and pelvis 12/15/2017 FINDINGS: No dominant thyroid nodule identified. Prominent bilateral axillary and subpectoral lymph nodes measure up to 9 mm. Additionally, prominent subcarinal, AP window and hilar lymph nodes are seen, limited evaluation without the use of IV contrast. Heart is normal in size with trace pericardial effusion. No aortic aneurysm identified. Small bilateral pleural effusions. No pneumothorax. Bilateral intralobular septal thickening is noted in conjunction with thickening of the bronchovascular bundles. Dependent bibasilar consolidation with air bronchograms. Additionally, there are multiple peripherally oriented consolidations and pulmonary nodules with central lucencies measuring up to 2.0 cm. Central airways appear patent. No acute process of the imaged upper abdomen. Mild generalized body wall edema. Bones appear to be intact. IMPRESSION: 1. Small bilateral pleural effusions with mild pulmonary edema. 2. Multifocal peripherally oriented nodular and consolidative opacities, many of which demonstrate central cavitation are suggestive of septic emboli. 3. Bibasilar consolidative opacities suggest atelectasis or pneumonitis. 4. Mild axillary and mediastinal adenopathy, likely reactive. Electronically signed by: North Nelson M.D. 10/08/2018 2:25 PM Dictated: 10/08/18 1418
[2018-10-09] MEDS: PANTOprazole 40 MG in SYRINGE 0 ML IV SCH ×2 (08:49→20:55)
[2018-10-09] MEDS ORDERED: INSULIN GLARGINE SOLOSTAR 100 UNITS/ML 3 ML PEN SC ONE ×2 (09:00→12:00)
[2018-10-09] MEDS ORDERED: ENOXAPARIN INJ 40 MG/0.4 ML SYR SQ SCH (09:00)
[2018-10-09] MEDS: INSULIN ASPART 100 UNITS/ML 3 ML PEN SC SCH ×4 (09:24→20:55)
[2018-10-09 09:33] LABS: BUN Creatinine Ratio 19.6 (10-20); Calcium 7.4 mg/dl (8.5-10.1); Creatinine Clr Calc Pharmacy 22.9 ml/min; Est GFR (African American) 20.2; Est GFR (Non-African American) 17.4; Potassium 5.1 mmol/L (3.5-5.1)
--- NOTE | 2018-10-09 10:54 | Pharmacy Report ---
Pharmacy Abx Dose Short Note - Date of Service October 09, 2018 - Assessment & Plan Assessment * 37 year old F receiving vancomycin for treatment of MRSA bacteremia 2nd tricuspid valve endocarditis with septic pulmonary emboli and possible seeding/ septic joint(s) as well * Hx IVDA - will complicate selection of agent for outpatient long-term IV regimen. ID on board and considering off-label dalbavancin * Daptomycin cannot be used at this time 2nd pulmonary involvement * SCr with significant worsening as compared to yesterday - increased from 1.98 to 3.09 mg/dL over 24 hours Vancomycin * Nephrotoxicity considerations * Please note that the only *trough* level thus far this admission was subtherapeutic at 11.7 mcg/mL yesterday * The level of 23.8 mcg/mL yesterday was closer to a *peak* level and the level of 28.8 mcg/mL this AM was a *random* level, drawn 10.5 hours after the previous dose * Therefore, *supratherpeutic* vancomycin trough levels have not likely contributed to current worsening renal function. However, vancomycin can still cause nephrotoxicity at *therapeutic* levels and therefore vancomycin may be contributing to worsening renal function and this will need to be an ongoing consideration * Goal range considerations * Exact dose/regimen cannot be consistently and accurately determined when renal function is changing significantly * Strong need to prevent subtherapeutic levels 2nd extensive systemic MRSA infection (especially with a high vancomycin CHELSEA of 2 mcg/mL) * Strong need to prevent supratherapeutic levels 2nd risk for further renal impairment * Target *trough* level usually 15-20 mcg/mL - will try to keep the level closer to 20 mcg/mL (10x the CHELSEA for vancomycin per culture results) * Today's levels * Random level of 28.8 mcg/mL is above target trough level. Unclear vancomycin clearance with significantly worsening renal function. Will repeat random level later today to determine patient-specific pharmacokinetic clearance (will relate to this point in time only - ongoing parameters will change with changing renal function) * Random level of 26.1 mcg/mL is persistently above target trough level and demonstrates minimal clearance of vancomycin * Patient-specific PK based on today's levels * ke 0.0191 hr-1 * t1/2 36 hr * Based on patient-specific PK, level of 26.1 mcg/mL will not fall to 20 mcg/ mL until 10/10 @ 0332 (assuming no further change in renal function which cannot unfortunately be assumed). Therefore will repeat random level 10/10 @ 299 Plan * No vancomycin today given or ordered (based on random levels >20 mcg/mL) * Repeat random level 10/10 Pharmacy will continue to follow and will adjust dose/frequency as necessary. Thank you.
--- NOTE | 2018-10-09 13:10 | Pharmacy Report ---
PHA: Glycemic Control AP - Date of Service October 09, 2018 - Assessment & Plan Outpatient Anti-diabetic Regimen: * Insulin glargine 32 units qAM * Novolog - unknown dose/schedule * A1c = 12.7 % on 10/07/18 The patient is currently receiving: * Basal insulin: Lantus 15 units 1/ afternoon * Correctional Insulin: Novolog Correction per scale ACHS Goal Range: Low 120-150 mg/dL Correction Factor: 35 mg/dL/unit * Prandial insulin: Per carb ratio of 1 unit per 12 grams CHO consumed Risk Factors for Insulin Resistance: * Infection: MRSA bacteremia, endocarditis, septic pulmonary emboli, probable seeding/septic joint * Diet: NPO to T1DM (starting at lunch today) ASSESSMENT: * 37 yo F with T1DM admitted with DKA and MRSA bacteremia. Now found to have endocarditis, septic pulmonary emboli, probable seeding/septic joint * Outpatient control of T1DM poor based on A1c of 12.7%. I am concerned for non -adherence which may have caused *prescribed* increases in basal insulin with variable *administration* of basal insulin. Thus, patient's requirements for basal insulin may be less inpatient. However, DKA also increases insulin resistance and therefore it is also possible that her needs may be increased as compared to outpatient dose * Lantus 15 units yesterday successfully transitioned patient off drip overnight last night. AM fasting BSG elevated to 174 mg/dL. Will increase Lantus by 20% (please note this can be a significant dose adjustment for a patient with type 1 diabetes) * BSG's increased AM fasting to pre-lunch BSG today. No CHO intake charted at breakfast time, therefore increase likely 2nd insufficient correctional insulin at breakfast. Will tighten * Will continue overnight checks for now 2nd BSG >250 mg/dL at lunch PLAN FOR INPATIENT GLYCEMIC CONTROL: * Basal insulin: Lantus 18 units x1 * Correctional Insulin: Novolog Correction per scale ACHS Goal Range: Low 120-150 mg/dL Correction Factor: 30 mg/dL/unit * Prandial insulin: Per carb ratio of 1 unit per 11 grams CHO consumed Pharmacy will continue to monitor patient daily and write orders per [facility] inpatient glycemic control protocol. Thanks. * Please note that the plan above was derived based on current level of insulin resistance and hospital stress. These recommendations are appropriate for inpatient admission only. Plan of care upon discharge will need to be reassessed to avoid potential outpatient hypo/hyperglycemia.
[2018-10-09] MEDS: HYDROmorphone INJ 1 MG/ML SYRINGE IV PRN ×2 (13:40→23:48)
[2018-10-09] MEDS ORDERED: HEPARIN SOD 5,000 UNIT/0.5 ML VIAL SQ SCH (14:00)
[2018-10-09] MEDS: HYDROmorphone INJ 0.5 MG/0.5 ML SYR IV PRN (16:23)
[2018-10-09] MEDS: ACETAMINOPHEN 1000 MG/100 ML IV IV PRN (16:25)
[2018-10-09] MEDS: NYSTATIN SUSP 500,000 U/5 ML UDC PO SCH ×3 (16:45→20:53)
--- NOTE | 2018-10-09 21:26 | Progress Note ---
DATE: 10/09/2018 SUBJECTIVE: This 37-year-old female was admitted with a staph bacteremia/septicemia from IV drug use in the multiple septic emboli. She says she is not much different. Still has about the same aches and pains. No other new complaints. Complaining of mostly right shoulder pain. The left wrist seems to have gotten some better. OBJECTIVE: VITAL SIGNS: Temperature is 36.8. Vital signs stable. PHYSICAL EXAMINATION: GENERAL: A very anxious, middle-aged female. I did have to wake her up when I went into the room. EXTREMITIES: Examination of the left wrist and hand reveals moderate diffuse swelling. Clearly mostly of the swelling in the dorsum of her hand. A little bit of erythema but no obvious major cellulitis. She moved her wrist and fingers much more comfortably today and easier, although she says it is about the same. That clearly moves better. She can make a near full fist and extend her fingers. She is neurologically intact. Examination of the right shoulder reveals diffuse tenderness to palpate anywhere around her shoulder. No obvious fluctuance. She really refused to let me move it much. LABORATORY DATA: Her white cell count is elevated at 16.20. Hemoglobin is 9.5. Her sed rate is elevated at 49. C-reactive protein is also elevated. MRI: I did review her MRI of her right shoulder as well as her left wrist and hand. MRI of the right shoulder reveals no signs of septic arthritis. She had minimal joint effusion. Some slight marrow changes in the bone, but no obvious signs of osteomyelitis. She does have a little fluid in the subacromial space of unclear etiology. Rotator cuffs for the most part intact. A little bit of thinning. MRI of the left wrist was reviewed. It shows diffuse edema and cellulitis type changes. She does have significant thickening and inflammation of her wrist extensor tendon bursa on the back of her wrist, mostly consistent with a diffuse cellulitis. No obvious fluid or abscess collections. She clearly has some degree of extensor tenosynovitis. ASSESSMENT: A 37-year-old white female admitted with a staph septicemia and septic emboli with multiple medical issues and infectious sources. Her wrist clinically seems to be getting better. Shoulder clinically appears the same. There are no signs of septic arthritis, neither in the wrist or the shoulder. She does have a little fluid in her subacromial bursa of unclear significance. She does also have some tenosynovitis mostly at the dorsal wrist extensor tendons which should get better with antibiotic management. It is typically not a surgical problem. PLAN: At this point, I would recommend continuing antibiotic management. We will have to follow her along. It may warrant aspiration of her subacromial space and see if we get any fluid out of there or if she does not respond. There is no obvious septic joint, which needs treated immediately urgently. We will have to follow her along over the next couple days. Any orthopedic questions can be directed at [phone]. She can be active within the limits of pain.
[2018-10-10] MEDS: INSULIN ASPART 100 UNITS/ML 3 ML PEN SC SCH ×6 (00:09→22:42)
[2018-10-10 03:07] LABS: INR 1.3 (0.9-1.1); Mean Corpuscular Hgb Conc 35.4 g/dL (32-36); Prothrombin Time 13.2 Seconds (9.0-12.0)
[2018-10-10 03:11] LABS: Hematocrit (blood only) 30.5 % (37-47); Hemoglobin 10.8 g/dL (12.0-16.0); Mean Corpuscular Volume 78.2 fL (80-100); RDW Coefficient of Variation 16.4 % (11.5-14.5)
[2018-10-10 03:14] LABS: BUN Creatinine Ratio 17.7 (10-20); Calcium 7.8 mg/dl (8.5-10.1); Creatinine Clr Calc Pharmacy 17.7 ml/min; Est GFR (African American) 14.8; Est GFR (Non-African American) 12.7; Potassium 5.1 mmol/L (3.5-5.1)
[2018-10-10] MEDS: HYDROmorphone INJ 1 MG/ML SYRINGE IV PRN ×4 (03:27→21:31)
[2018-10-10 03:29] LABS: Platelet Count 52 K/uL (130-400)
[2018-10-10] MEDS ORDERED: HYDROmorphone INJ 0.5 MG/0.5 ML SYR IV STA (04:21)
[2018-10-10] MEDS ORDERED: SODIUM CHLORIDE 0.9% 1000ML 500 ML IV ONE ×2 (04:27→05:21)
[2018-10-10 04:42] LABS: Appearance Urine Turbid (Clear); Color Urine Dark Yellow; Epithelial Cell Urine Auto >30 /lpf (0-5); Glucose Urine UA Negative (Negative); Ketones Urine Trace (Negative); Leukocyte Esterase Urine 3+ (Negative); Nitrite Urine Negative (Negative); Protein Urine 1+ (Negative); Specific Gravity Urine 1.034 (1.000-1.030); Urobilinogen Urine Negative (Negative); WBC Urine Automated >30 /hpf (0-5)
[2018-10-10 05:03] LABS: Bilirubin Urine Negative (Negative); Ictotest Urine Negative (Negative)
[2018-10-10 05:05] LABS: Bacteria Urine Automated 1+ (Negative); Cast Urine Automated 0 /lpf (0-5)
[2018-10-10 05:06] LABS: Calcium Oxalate Crystals Urine Present (None Prsent)
[2018-10-10 05:16] LABS: BUN Creatinine Ratio 17.5 (10-20); Calcium 7.7 mg/dl (8.5-10.1); Est GFR (Non-African American) 12.1; Potassium 5.4 mmol/L (3.5-5.1)
--- NOTE | 2018-10-10 05:38 | Progress Note ---
Date of Service October 10, 2018 5:30 AM Patient was noted to become febrile, more tachycardic, and more tachypneic overnight. She also had decreased urine output. Oxygen requirement has remained about the same though her SpO2 lowered to 91% on 4 L oxygen mask. - Based on earlier discussion with Dr. Le (primary attending) at 1900 turnover, he stated an ordered transfer to the ICU in the late afternoon was cancelled. - Ultimately, some interval labs and imaging did not transmit in the transfer process. Those were obtained around 2:45 this morning. They are suggestive of a pre-renal process (FeNa 0.1). Began normal saline boluses. - After discussion of the case with Dr. Neff, he wishes for the patient to be transferred to the ICU. New transfer order placed. North Ruiz MD PGY2 Overnight call Physical Exam 2 Vital Signs (Past 24 Hours): Last Vital Signs Temp 38.2 C H 10/10/18 04:00 Pulse 142 H 10/10/18 04:00 Resp 22 10/10/18 04:00 BP 135/87 10/10/18 04:00 Pulse Ox 91 10/10/18 04:00
[2018-10-10] MEDS: SODIUM CHLORIDE 0.9% 1000ML 1,000 ML IV SCH ×2 (06:17→13:37)
--- NOTE | 2018-10-10 06:41 | Ultrasound Report ---
US renal/blad retro comp HISTORY: 37 years-old Female Left flank pain, ARF acute left-sided flank pain with acute renal failu re COMPARISON: CT abdomen and pelvis 12/15/2017 TECHNIQUE: Multiple real-time sonographic images of the kidneys and urinary bladder were obtained ass essing grayscale appearance and color flow FINDINGS: Study is limited secondary to patient's breathing throughout the exam. Right kidney measures 12.5 x 5.4 x 5.5 cm demonstrates no renal calculi, hydronephrosis or suspicious mass lesions. Trace perinephric edema. Mild nonspecific prominence of the pyramids. Briseno catheter noted within a decompressed urinary bladder lumen. Ureteral jets not identified. Left kidney measures 2.3 x 4.1 x 5.3 cm and demonstrates no renal calculi or hydronephrosis. Incidental findings include hepatosplenomegaly with the spleen measuring up to approximately 21 cm in length. Possible varices adjacent to the splenic hilum. Trace pelvic ascites. Bilateral pleural effu sions. IMPRESSION: 1. No renal calculi or hydronephrosis. 2. Nonspecific trace right perinephric edema. 3. Trace pelvic ascites noted in addition to bilateral pleural effusions. 4. Hepatosplenomegaly. The above report was generated using voice recognition software. It may contain grammatical, syntax o r spelling errors. Electronically signed by: North Nelson M.D. 10/10/2018 6:40 AM
--- NOTE | 2018-10-10 06:48 | Family Medicine Progress Note ---
Date of Service October 10, 2018 Assessment & Plan (1) Infective endocarditis: Princess Katz is a 37 year old woman with a history of IV drug use who presented 10/07/18 with markedly polyuria, poor diabetes control, and intense pain with multiple foci. MRSA BACTEREMIA Route of access most likely IV drug use Two cultures from time of admission positive for MRSA Borderline sensitivity to Vancomycin CHELSEA = 2 Per ID switched Abx to ceftaroline 200 mg BID per ID Tricuspid valve endocarditis, lungs with septic emboli and likely multiple joins infected Will draw more blood cultures per ID recommendations to show bacteremia cleared RENAL INJURY Patient continues to be oliguric today Creatinine risen from 1.85 on admission to 4.25 FENA of 0.1 shows likely pre-renal cause, but lack of response to fluid points to intrinsic renal cause possibly ATN vs methamphetamine renal toxicity vs buprenorphine renal toxicity WIll monitor hyponatremia and hyperkalemia closely may be cause to dialyze Will consult nephrology INFECTIVE ENDOCARDITIS Valve appears to still be functional very mild tricuspid regurgitation per cardiology Continuing IV abx Patient will need terminologist IV anti MRSA coverage, complicated by her ongoing IV drug use Will chemical dependency counselor ID for skilled nursing treatment options DKA Blood sugar 1220 on admission Sugars have stabilized, transitioned to subcutaneous insulin from IV Extreme Multifocal Pain Dilaudid .5 and 1 mg for moderate and severe pain pain better controlled today, heart rate and resp rate have improved with better pain control Anemia Hemoglobin stable Diabetes Will educate patient and encourage them to seek outpatient follow up and improve diabetes control A1C 12.7 IV drug use Will chemical dependency counselor patient on IV drug use cessation options. Hopefully hospitalization will be shock patient needs to make a change DVT ppx No DVT ppx at this time with GI bleed concern Will reevaluate tomorrow morning with CBC, if no further sign of active bleeding will start on lovenox at that time COde: Full Code Diet: liquid Dispo: Tele (2) Right shoulder pain: (3) Wrist pain, left: (4) Type 1 diabetes: (5) MRSA (methicillin resistant staph aureus) culture positive: (6) Drug abuse, IV: Supervising Physician Co-Signing Physician Notes I personally examined the patient and verified all cotton points of history and exam, discussed case, and agree with decision making with Dr Infante. Main complaint is pain. Generally is all over. She does not feel particularly short of breath, but she does feel a bit claustrophobic with the oxygen mask. We discussed high flow nasal cannula, but she notes she is more of a mouth breather and in the end would prefer to leave the oxygen mask on for now. Case discussed with parakeet raiser, aggressive pain control orders appreciated. Vitals noted, in general she is awake and alert, appears to be uncomfortable but less distressed than last night. HEENT normal cephalic atraumatic mucous membranes are much more moist. Breathing is unlabored but ongoing tachypnea, appearing related to pain. Skin shows no rashes, pallor, or icterus, other than the lesions noted before. Neuro shows no focal deficits. Hyperglycemic dehydration�and uncontrolled type 1 diabetes�continue insulin management, follow and continue to adjust fluid support. Sugar slightly high right now, but we will continue to adjust Acute renal failure�fortunately renal ultrasound did not show anything telling for an infarct, and her urine studies and fractional excretion of sodium favor a significant prerenal state. Continue fluid boluses and following closely. She is not showing any overt indications for dialysis, but her potassium trending up is worrisome, and we will continue to follow this closely. Hyperkalemia�this is been slowly progressive, but given her fairly oliguric renal failure, even though hopefully with fluid boluses this will improve, I will preemptively give her a dose of Kayexalate to provide a degree of buffer with her potassium levels. Continue to follow closely Abdominal pain-most of which she is still having low abdominal pain appears to be predominantly septic emboli related. Mostly referred from her lungs. Given this, and her back pain, when possible we will get a CT abdomen pelvis to assess for evidence of septic emboli intra-abdominal as well. Given that she is already on antibiotics with supportive care, this is not emergent at this time, and since she was having difficulty tolerating oral contrast, we can wait for now until her situation allows for better imaging. Anemia-this has been overall stable, follow closely. MRSA bacteremia and septic emboli complicated by endocarditis, probably septic wrist with tenosynovitis. In discussion with cardiology who read the echo, the valve integrity is intact, so there is no concern for need of acute surgical intervention. With her worsening renal failure, and the marginal CHELSEA to vancomycin, relative to her situation, we have discussed with ID and changed to ceftalorine Pain�probably one-part withdrawal in 1 part septic emboli. Antibiotics and pain control. Appreciate ICU help with the Precedex. Acute hypoxia�related to her pulmonary septic emboli. Antibiotics and supportive care, consider transition back and forth between mask and high flow nasal cannula for comfort. Maintain adequate oxygenation. Hyponatremia�continue to follow between her sugar, fluids, and renal failure, we will follow this closely. Uncontrolled type 1 diabetes�she will need extensive education about this, otherwise insulin management as above IV drug abuse�education and supportive care. Nurse navigator has gotten her a phone number to get back into maintenance therapy. Thrombocytopenia and mild coagulopathy�possibly related to sepsis, her INR did correct a little with vitamin K, begging the question of a degree of nutritional deficiency. DVT prophylaxis�pharmacologic is risky given thrombocytopenia and coagulopathy. Fortunately she does not have any evidence of a GI bleed, but pharmacologic is strongly relatively contraindicated at this time and mechanical is of dubious benefit. Hedler Katz has been transferred to the ICU. She is much the same clinically. She is complaining of a lot of pain and feels hot but with some chills. She also reports she has been having panic attacks and the oxygen mask makes her feel claustrophobic. She is very concerned over what will become of her children. She denies worsening shortness of breath, chest pain, lightheadedness, rigors or weakness. Constitutional: + fever, + chills, + sweats and + body aches; no weakness (No focal weakness) Respiratory: + dyspnea; no cough and no wheezing Cardiovascular: + dyspnea at rest and + edema (Mild non pitting edema); no chest pain, no palpitations, no lightheadedness and no syncope Gastrointestinal: + abdominal pain and + nausea; no vomiting Genitourinary (Female): + decreased urination (Briseno catheter in place) Physical Exam 2 Vital Signs (Past 24 Hours): Last Vital Signs Temp 37.3 C 10/10/18 05:40 Pulse 146 H 10/10/18 05:40 Resp 40 H 10/10/18 05:40 BP 114/75 10/10/18 05:40 Pulse Ox 92 10/10/18 05:40 Constitutional: + acute distress, + ill appearing, + well hydrated, + disheveled, cooperative and + in distress Respiratory: + labored breathing Auscultation: + rhonchi Cardiovascular: Rate/Rhythm: regular rate and regular rhythm Heart Sounds: normal S1 and normal S2; no click, no gallop, no murmur and no cardiac rub Extremities: no calf tenderness Gastrointestinal (Abdomen): Inspection/Auscultation: abdomen normal to inspection Percussion/Palpation: abdomen soft; abdomen nontender Musculoskeletal: Extremities: extremities normal to inspection Right shoulder and left wrist tender to palpation. _ (1) Type 1 diabetes Chronic kidney disease stage: Diabetes mellitus complication detail: Diabetes mellitus complication status: with hyperglycemia Diabetes mellitus macular edema: Diabetic retinopathy severity: Laterality: Proliferative retinopathy type: Qualified Code(s): E10.65 - Type 1 diabetes mellitus with hyperglycemia
[2018-10-10] MEDS: PANTOprazole 40 MG in SYRINGE 0 ML IV SCH ×2 (08:00→21:44)
[2018-10-10] MEDS: NYSTATIN SUSP 500,000 U/5 ML UDC PO SCH ×4 (08:01→21:43)
[2018-10-10] MEDS: HYDROmorphone INJ 0.5 MG/0.5 ML SYR IV PRN ×2 (08:07→15:44)
[2018-10-10] MEDS: CHOLECALCIFEROL 1,000 UNITS TAB PO SCH (08:34)
[2018-10-10] MEDS: ERGOCALCIFEROL 50,000 UNITS CAP PO SCH (08:34)
[2018-10-10 09:16] LABS: BUN Creatinine Ratio 17.7 (10-20); Calcium 7.5 mg/dl (8.5-10.1); Creatinine Clr Calc Pharmacy 16.9 ml/min; Potassium 5.2 mmol/L (3.5-5.1)
[2018-10-10] MEDS ORDERED: CEFTAROLINE FOSAMIL ACETATE 600 MG in SODIUM CHLORIDE 0.9% 250 ML IV STA (10:15)
--- NOTE | 2018-10-10 10:35 | Infectious Disease Progress Nt ---
Date of Service October 10, 2018 Assessment & Plan (1) MRSA (methicillin resistant Staphylococcus aureus) septicemia: Patient with tricuspid valve endocarditis with MRSA with septic pulmonary emboli and probably septic seeding to multiple joints. Has now developed acute renal insufficiency so would recommend discontinuation of vancomycin and treating with ceftaroline adjusted for renal insufficiency. Case discussed with hospitalist service. Will follow. (2) Infective endocarditis: 37-year-old female with history of active drug abuse with MRSA associated tricuspid valve endocarditis with septic pulmonary emboli and probably seeding of multiple joints as well. Patient should be continued on vancomycin given potential of pulmonary involvement as daptomycin ineffective in this situation. Will discontinue Zosyn. Would obtain follow-up blood cultures to ensure clearance of bacteremia. Patient will require prolonged IV antibiotic therapy, but this is made difficult by active drug abuse. May need to explore the use of IV dalbavancin off label. Will discuss with all involved. Will follow. Subjective Patient seen in follow-up for tricuspid valve endocarditis. Still having significant degree of pain. Awaiting follow-up blood cultures. Constitutional: + fever, + chills, + body aches, + fatigue and + weakness Ear, Nose, Mouth, Throat: + sore throat and + hoarseness Respiratory: + dyspnea; no hemoptysis Cardiovascular: + chest pain Gastrointestinal: + abdominal pain and + nausea Musculoskeletal: as per Subjective / HPI Endocrine: as per Subjective / HPI Physical Exam 2 Vital Signs (Past 24 Hours): Last Vital Signs Temp 36.9 C 10/10/18 10:00 Pulse 123 H 10/10/18 10:00 Resp 30 H 10/10/18 10:00 BP 114/75 10/10/18 10:00 Pulse Ox 88 L 10/10/18 10:00 Constitutional: + acute distress, + ill appearing and + thin Eyes: PERRL, conjunctivae normal, anicteric sclerae ENMT: external ear and nose normal, oropharynx normal Neck: trachea midline, no thyromegaly neck nontender Respiratory: + respiratory distress (Mild), normal percussion and + tachypneic Auscultation: + rales Cardiovascular: Rate/Rhythm: regular rate and regular rhythm Heart Sounds: + murmur (Systolic) Gastrointestinal (Abdomen): Inspection/Auscultation: abdomen normal to inspection and normal bowel sounds Percussion/Palpation: + abdomen tender; no hepatosplenomegaly and no abdominal mass Musculoskeletal: no cyanosis or clubbing, extremities motor strength 5/5 Head/Neck/Chest: normocephalic and head atraumatic Skin: no rashes, warm and dry Neurologic: moves all extremities and awake; no focal motor deficits Psychiatric: A+Ox3, euthymic affect Lymphatic: no cervical or axillary lymphadenopathy no inguinal lymphadenopathy Results & Data Laboratory Results Short CBC 10/10/18 Range/Units 02:45 WBC 21.10 H (4.8-10.8) K/uL Hgb 10.8 L (12.0-16.0) g/dL Hct 30.5 L (37-47) % Plt Count 52 L (130-400) K/uL BMP 10/10/18 10/10/18 10/10/18 02:45 04:40 08:37 Sodium 130 L 129 L 129 L Potassium 5.1 5.4 H 5.2 H Chloride 105 104 105 Carbon Dioxide 15 L 16 L 15 L BUN 75 H 77 H 78 H Creatinine 4.21 H D 4.39 H 4.41 H Glucose 212 H 214 H 239 H Calcium 7.8 L 7.7 L 7.5 L Urine 10/10/18 Range/Units 04:25 Urine Color Dark Yellow Urine Appearance Turbid H (Clear) Urine pH 5.0 (4.5-7.5) Ur Specific Mather 1.034 H (1.000-1.030) Urine Protein 1+ H (Negative) Urine Glucose (UA) Negative (Negative) Diagnostic Findings Microbiology 10/07/18 13:00 Urine,Straight Cath Urine Culture - Final No growth - less than 1,000 colonies/mL. 10/07/18 12:26 Blood Blood Culture - Final Staph aureus MRSA 10/07/18 13:54 Blood Blood Culture - Final Staph aureus MRSA MR wrist LT wo con CLINICAL HISTORY: 37 years-old Female with Concern of septic joint. Patient presents with septic emboli and acute left wrist swelling. History of IV drug abuse. COMPARISON: Left wrist radiographs October 08, 2018. TECHNIQUE: Multiplanar, multi sequence MRI of the left wrist was performed without intravenous contrast. FINDINGS: Motion degraded exam. EXTRINSIC LIGAMENTS: The volar extrinsic ligaments including the radio-scapho- capitate and gzits-srsr-lkhioevgav ligaments are grossly intact. INTRINSIC LIGAMENTS: The scapholunate and lunotriquetral ligaments are intact and unremarkable in appearance. No evidence of scapholunate or lunotriquetral interval widening. TFCC: Ill-defined mildly increased T2 signal noted about the articular disc suggesting degeneration and/or artifact without evidence of discrete acute tear. Otherwise, the triangulofibrocartilage complex is preserved including the meniscal homologue, the extensor carpi ulnaris tendon, the volar and dorsal distal radioulnar ligaments and the ulnolunate and ulnotriquetral ligaments. BONE MARROW: Minimal bone marrow edema noted about the base of the first metacarpal and also within the trapezium, likely on a degenerative basis. No fracture, edema, or focal marrow replacement process. JOINT SPACES: Joint spaces are generally well maintained. Mild marginal spurring about the first carpal metacarpal joint. No focal articular cartilage loss or osteochondral lesion. No erosive changes. Trace joint effusion. CARPAL TUNNEL: Moderate fluid surrounds the flexor pollicis longus tendon extending from the level of the distal radius distally outside the field-of- view past the metacarpophalangeal joint. Otherwise, the contents of the carpal tunnel are unremarkable in appearance without evidence of carpal tunnel syndrome. The remaining flexor tendons and median nerve are unremarkable in appearance. The flexor retinaculum is unremarkable. The ulnar nerve appears unremarkable. EXTENSOR TENDONS: Extensive tenosynovitis about the extensor tendons, notably within the second and fourth compartments. No evidence of tendon tear. SOFT TISSUES: Extensive subcutaneous and deep tissue edema about the imaged distal forearm, wrist and hand, most pronounced dorsally. No drainable fluid collection. IMPRESSION: 1. Motion degraded exam. 2. Trace joint effusion without definitive evidence of septic arthropathy. 3. Extensive subcutaneous and deep tissue edema about the forearm, wrist and hand. Differential considerations would include cellulitis, venous stasis or lymphedema. 4. Extensive tenosynovitis about the second and fourth extensor compartments and flexor pollicis longus, possibly reactive or infectious in etiology. The above report was generated using voice recognition software. It may contain grammatical, syntax or spelling errors. Dictated: 10/09/2018 7:22 AM Transcribed: 10/09/2018 7:41 AM Sahra [id number] [email or web address] Electronically signed by: [place] M.D. 10/09/2018 8:05 AM
[2018-10-10] MEDS ORDERED: HYDROmorphone INJ 0.5 MG/0.5 ML SYR IV PRN (10:39)
[2018-10-10] MEDS: DEXMEDETOMIDINE HCL 200 MCG in SODIUM CHLORIDE 0.9% 48 ML IV SCH ×4 (11:06→19:44)
[2018-10-10] MEDS ORDERED: CEFTAROLINE PHARMACY CONSULT IN PROGRESS PRN (11:15)
[2018-10-10] MEDS ORDERED: INSULIN GLARGINE SOLOSTAR 100 UNITS/ML 3 ML PEN SC STA ×2 (11:45→12:24)
[2018-10-10 12:16] LABS: BUN Creatinine Ratio 17.4 (10-20); Calcium 7.6 mg/dl (8.5-10.1); Creatinine Clr Calc Pharmacy 16.6 ml/min; Est GFR (African American) 13.7; Est GFR (Non-African American) 11.8; Potassium 5.2 mmol/L (3.5-5.1)
--- NOTE | 2018-10-10 12:33 | Pharmacy Report ---
PHA: Glycemic Control AP - Date of Service October 10, 2018 - Assessment & Plan Outpatient Anti-diabetic Regimen: * Insulin glargine 32 units qAM * Novolog - unknown dose/schedule * A1c = 12.7 % on 10/07/18 The patient is currently receiving: * Basal insulin: Lantus SC qAM, 15 units on 10/08, 18 units on 10/09 * Correctional Insulin: Novolog Correction per scale ACHS Goal Range: Low 120-150 mg/dL Correction Factor: 30 mg/dL/unit * Prandial insulin: Per carb ratio of 1 unit per 11 grams CHO consumed Risk Factors for Insulin Resistance: * Infection: MRSA bacteremia, endocarditis, septic pulmonary emboli, probable seeding/septic joint * Acute kidney injury/failure * Diet: T1DM ASSESSMENT: * 37 yo F with T1DM admitted with DKA and MRSA bacteremia. Now found to have endocarditis, septic pulmonary emboli, probable seeding/septic joint * Outpatient control of T1DM poor based on A1c of 12.7%. I am concerned for non -adherence which may have caused *prescribed* increases in basal insulin with variable *administration* of basal insulin. Thus, patient's requirements for basal insulin may be less inpatient. However, DKA also increases insulin resistance and therefore it is also possible that her needs may be increased as compared to outpatient dose * Significant acute kidney injury/failure noted - this may substantially increase insulin resistance. If patient were to require HD (K up to 5.4 today) , insulin sensitivity may *significantly* and *abruptly* increase - therefore hesitant to be too aggressive with increase in Lantus dose at this time despite AM fasting BSG 205 mg/dL. No nephrology consult for now per ICU rounds, and therefore no HD anticipated today. * Discussed possible benefit of insulin drip on ICU rounds, including changing insulin resistance 2nd KAREN and benefit with severe systemic bacterial infection. Decision was made to hold off on insulin drip for now. * Will tighten Novolog PLAN FOR INPATIENT GLYCEMIC CONTROL: * Basal insulin: Lantus 22 units SC x1 * Correctional Insulin: Novolog Correction per scale ACHS Goal Range: Low 120-150 mg/dL Correction Factor: 25 mg/dL/unit * Prandial insulin: Per carb ratio of 1 unit per 9 grams CHO consumed Pharmacy will continue to monitor patient daily and write orders per [facility] inpatient glycemic control protocol. Thanks. * Please note that the plan above was derived based on current level of insulin resistance and hospital stress. These recommendations are appropriate for inpatient admission only. Plan of care upon discharge will need to be reassessed to avoid potential outpatient hypo/hyperglycemia.
[2018-10-10] MEDS: CEFTAROLINE FOSAMIL ACETATE 200 MG in SODIUM CHLORIDE 0.9% 250 ML IV SCH ×2 (14:17→22:09)
[2018-10-10] MEDS ORDERED: SODIUM CHLORIDE 0.9% 1000ML 1,000 ML IV ONE (15:00)
[2018-10-10 15:58] LABS: BUN Creatinine Ratio 17.2 (10-20); Calcium 7.7 mg/dl (8.5-10.1); Creatinine Clr Calc Pharmacy 16.5 ml/min; Est GFR (African American) 13.6; Est GFR (Non-African American) 11.7; Potassium 5.7 mmol/L (3.5-5.1)
--- NOTE | 2018-10-10 16:44 | Critical Care Consultation ---
Date of Consultation October 10, 2018 Assessment & Plan (1) MRSA (methicillin resistant Staphylococcus aureus) septicemia: Impression: 1. Septic emboli secondary to IVDU. 2. History of drug abuse including Buprenorphen and methamphetamine. 3. Type 1 diabetes, recent DKA. 4. Chronic pain syndrome secondary to high tolerance. 5. Septic emboli involving also multiple bony structures including the rest and the elbows. Plan: 1. Continue with current antibiotics, infectious disease on board, change the patient to Ceftarolen. 2. SHELLEY would be helpful, consult cardiology in that regard. Large vegetation likely will require valve replacement. 3. Acute kidney insufficiency, including diabetic nephropathy and methamphetamine resulted in toxic ATN. Renal consult will be helpful. 4. Continue IV fluid, if the patient urine output is suboptimal, she will likely need renal replacement therapy. 5. DVT and GI prophylaxis. 6. Low threshold for intubation, discussed with the patient, she would like to continue with conservative management. 7. Continue with oxygen supplement. 8. Drug rehab counseling once she is better. 9. Discussed with Dr. Le, appreciate his input. Discussed with the staff on rounds and details, critical care time spent with the patient was 45 minutes History of Present Illness Reason for Consultation: Septic emboli Requesting Physician: Dr. Le Attending Physician: Carroll Le, DO History of Present Illness Dear Dr. Le: Thank you for your kind referral of Mrs. Katz to critical care service, this is a 37-year-old female with history of IVDU, type 1 diabetes, presented to the hospital with DKA, the patient apparently has been shooting Buprenorphen and methamphetamine. The patient has long history of drug abuse since age of 13. The patient started develop fever in addition to leukocytosis. Blood cultures were positive for MRSA and started also on vancomycin. The patient was noted to have other infectious metastasis including to the lungs and multiple bony structures. The patient was on the floor when she became more tachypneic and complaining of pain, the patient was transferred to the ICU for further management of her pain. When I interviewed the patient, she was complaining of pain, shortness of breath and shallow breathing, however she is tolerating the oxygen via the oxygen mask. The patient denies any abdominal pain, but her pain mainly in the arms and the bones as well as in her ribs. She did not have any nausea or vomiting, no constipation, denies any visual disturbances, no headache. Review of system was limited as the patient was complaining only of her pain. Allergies Allergy/AdvReac Type Severity Reaction Status Date / Time iodine Allergy Severe RASH Verified 10/07/18 13:01 Iodinated Contrast- Oral and Allergy Unknown RASH Verified 10/07/18 13:01 IV Dye Home Medications Home Medications Medication Instructions Recorded Confirmed Type buprenorphine HCl 8 mg SUBLINGUAL BID 10/07/18 10/07/18 History insulin aspart U-100 [Novolog 1 dose SUBCUT DIRECTED 10/07/18 10/07/18 History Flexpen U-100 Insulin] insulin glargine [Basaglar KwikPen 32 units SUBCUT QAM 10/07/18 10/07/18 History U-100 Insulin] Patient History Medical History Type 1 diabetes (Chronic) MRSA (methicillin resistant staph aureus) culture positive (Chronic) Abscess of forearm, right Drug abuse, IV (Acute) Hyperglycemia (Resolved) Retroperitoneal abscess Social History Current Living Situation: Family Current Living Situation Comment: LIVES ALONE WITH CHILDREN. Other Information That Helps Us Care for You: No Feels Safe at Home: Yes Safety Concerns: Feels Safe At This Time Smoking Status: Current every day smoker Tobacco Type: cigarettes Cigarettes per Day: 10 Do You Dip or Chew Tobacco: No Second Hand Exposure: Yes Tobacco Cessation Education Requested by Patient: Yes Hx Alcohol Use: No Hx Substance Use: Yes substance use type: marijuana, IV drugs, methamphetamine and other Substance Use Type Other:: SUBUTEX Last Used Substance: Days (ago) Last Used Substance Other:: SUNDAY Beliefs That Will Affect Care: None Communication Ability: Effective Review of Systems Review of system including 10 systems was unremarkable except for the above. Physical Exam 2 Vital Signs (Past 24 Hours): Last Vital Signs Temp 36.9 C 10/10/18 12:00 Pulse 112 H 10/10/18 15:00 Resp 39 H 10/10/18 15:00 BP 119/80 10/10/18 15:00 Pulse Ox 95 10/10/18 15:00 Physical Exam: No fever today, vital signs otherwise were stable, respiratory rate slightly elevated at 28, O2 saturation 94% on 6 L, no JVP, thin lady, skin aguilar from previous IVDU, S1-S2 regular rate and rhythm, slight tachycardia, lungs with rhonchi, abdomen is soft and benign, multiple areas of tenderness mainly in the upper extremities and in the wrist area, no edema. Neurologically she is nonfocal. She does not have any Jan[place]ay spots, no subconjunctival hemorrhage.. Results & Data Laboratory Results Labs were consistent with MRSA in the blood. Leukocytosis. And BUN/creatinine significantly elevated.
[2018-10-10] MEDS ORDERED: SODIUM POLYSTYRENE SULFONATE 15G/60ML SUSP PO ONE (17:15)
[2018-10-10 19:14] LABS: BUN Creatinine Ratio 16.6 (10-20); Calcium 7.6 mg/dl (8.5-10.1); Creatinine Clr Calc Pharmacy 16.1 ml/min; Est GFR (African American) 13.2; Est GFR (Non-African American) 11.4
[2018-10-10] MEDS ORDERED: DEXTROSE 50% 50 ML SYRINGE IV ONE (20:41)
[2018-10-10] MEDS ORDERED: INSULIN HUMAN REGULAR PER UNIT 10 UNITS in SYRINGE 0 ML IV STA (20:41)
[2018-10-10] MEDS ORDERED: CALCIUM GLUCONATE 10% 1,000 MG in SODIUM CHLORIDE 0.9% 50 ML IV ONE (21:00)
[2018-10-10] MEDS ORDERED: INSULIN HUMAN REGULAR PER UNIT 10 UNITS in SYRINGE 9.9 ML IV SCH (21:00)
[2018-10-10] MEDS ORDERED: DEXTROSE 50% 50 ML SYRINGE IV SCH (21:00)
--- NOTE | 2018-10-10 21:58 | Procedure Note ---
Procedure Note Date of Service October 10, 2018 Procedure: [facility] Indwelling Peripherally Inserted IV Catheter Placement Attending: Dr. Mccormick APC: Taco Johnson PA-C Indication: Need for IV Access, Poor Vascular Access Anesthesia: None Verbal consent was obtained from patient prior to performing the procedure. A time-out was completed verifying correct patient, procedure, site, positioning , and implant(s) or special equipment if applicable. Utilizing bedside ultrasound, vascularity of the RIGHT upper extremity was assessed. Vessel size was noted for appropriate catheter selection and skin was marked with gentle pressure. Patient�s RIGHT upper extremity was prepped and draped in the usual sterile fashion utilizing chlorhexidine. Ultrasound guidance was used to aid needle placement. An 18g Endurance Catheter was introduced into the distal RIGHT Brachial vein under direct ultrasound guidance. Guide wire was easily deployed without resistance. Catheter was threaded over the guide wire without resistance and the entire apparatus was removed intact. Good venous blood return was noted in the catheter. The IV catheter was easily flushed with sterile saline flush. Sterile clave was attached to the end of the catheter and good blood return was again noted. Tourniquet was released. StatLock device and sterile dressing were applied. The patient tolerated the procedure well. Blood Loss: Minimal Complications: None Procedural Ultrasound Guidance: Procedure Date: 10/10/2018 Indication: Poor Vascular Access Attending: Dr. Mccormick APC: Taco Johnson PA-C Artery/Veins Identified: YES Access confirmed in Vein with ultrasound: YES Complications: NONE Patient tolerated procedure: WELL
[2018-10-10] MEDS: DEXMEDETOMIDINE HCL 400 MCG in 0.9 % SODIUM CHLORIDE 96 ML IV SCH (22:31)
--- NOTE | 2018-10-10 22:34 | Progress Note ---
DATE: 10/10/2018 SUBJECTIVE: A 37-year-old female admitted with MRSA septicemia and DKA. She has been moved down to the ICU. No new complaints today. She does seem to be a little bit better pain blackwell with respect to the left less than the right shoulder. No other complaints. OBJECTIVE: VITAL SIGNS: Temperature is 36.8. Vital signs stable. Some mild tachycardia. LEFT WRIST: Reveals the swelling to be improved. She is certainly less tender. She can flex and extend her fingers with fairly mild pain. She is neurologically intact. No triggering or locking. Still a little fullness in the back of her wrist, but improved. No significant redness. RIGHT SHOULDER: Reveals it continued to be tender to palpation. She really refused to move it at all. Her shoulder is located. She is neurologically intact. ASSESSMENT: A 37, white female admitted with methicillin-resistant Staphylococcus aureus septicemia and diabetic ketoacidosis on intravenous antibiotics. She has got multiple foci of infection elsewhere, seems to be clinically improving from the orthopedic standpoint. She is certainly guarded from the medical standpoint. I do not see any orthopedic issues. These are all things that should respond to antibiotics over time. I do not see any obvious pus or localized fluid collections that need surgical management or aspiration. If she continues to have exquisite shoulder pain, we could consider aspiration with subacromial space, but this is something that should resolve on its own. She has got no signs of septic arthritis. PLAN: At this point, we will continue medical management. We are going to sign off for now. If something else comes up orthopedically, be feel free to let us know. We will reevaluate. I can be reached on 28.
[2018-10-10 23:56] LABS: BUN Creatinine Ratio 16.9 (10-20); Calcium 7.5 mg/dl (8.5-10.1); Est GFR (African American) 13.1; Est GFR (Non-African American) 11.3; Potassium 5.5 mmol/L (3.5-5.1)
[2018-10-11] MEDS: DEXMEDETOMIDINE HCL 200 MCG in SODIUM CHLORIDE 0.9% 48 ML IV SCH (00:24)
[2018-10-11] MEDS: SODIUM CHLORIDE 0.9% 1000ML 1,000 ML IV SCH ×3 (00:32→13:24)
[2018-10-11] MEDS ORDERED: SODIUM BICARB 8.4% INJ 50 MEQ/50 ML SYR IV ONE (01:19)
[2018-10-11] MEDS: INSULIN ASPART 100 UNITS/ML 3 ML PEN SC SCH ×6 (01:23→21:16)
[2018-10-11 01:27] LABS: iSTAT Allen Test Pass; iSTAT Arterial Blood Gas HCO3 12 meg/L (19-24); iSTAT Carbon Dioxide 12 mEq/l (24-31)
[2018-10-11] MEDS ORDERED: RAPID SEQUENCE INDUCTION BAG ONE (01:28)
[2018-10-11] MEDS ORDERED: PROPOFOL IV EMULSION 10 MG/ML 100 ML VIAL IV ONE (01:54)
--- NOTE | 2018-10-11 01:58 | Procedure Note ---
Procedure Note Date of Service October 11, 2018 Time of Procedure: 154 APC: Taco Johnson PA-C. Attending: Dr. Mccormick A time-out was completed verifying correct patient, procedure, site, positioning. Patient was evaluated and required intubation for airway protection in the setting of declining respiratory status. Sedative agent used: Etomidate Paralysis agent used: Rocuronium Consent signed and placed on chart per physician supervising procedure. The patient was prepared in the appropriate fashion. Sedation was achieved utilizing etomidate and rocuronium, per Dr. Liane Craft (Emergency Medicine) administration. The patient was easily ventilated using [id number] to achieve adequate oxygenation. A 7.5 Welsh endotracheal tube was placed under direct visualization with Glidescope to 24 cm at the lip. The stylette was removed and balloon was inflated with 10mL of air. Appropriate Colorimetric change was appreciated. Bilateral breath sounds were heard without air sounds in the abdomen. Dr. Liane Craft was present for the entire procedure. Post Intubation Chest X-ray confirms placement without pneumothorax. Patient tolerated the procedure well and there were no immediate complications.
--- NOTE | 2018-10-11 01:58 | Critical Care Progress Note ---
Date of Service October 11, 2018 Assessment & Plan (1) MRSA (methicillin resistant Staphylococcus aureus) septicemia: IMPRESSION: 1. Respiratory Distress 2. Metabolic Acidosis 3. Endocarditis 4. Acute Renal Failure 5. Sepsis w/ MRSA Bacteremia 6. Pulmonary Edema PLAN: 1. Emergent endotracheal intubation given rapid clinical decline and worsening clinical status. 2. Concerns for worsening septic eboli w/ ??developing lung abscess(s). 3. Concerns for volume overload w/ current resuscitative efforts. 4. Worsening renal failure w/ metabolic acidosis. 5. Will consult Nephrology on ??need for HD at this point. Do not feel that lasix would offer any benefit at this time as the patient is currently producing little/no urine. 6. Currently on Abx per ID. Continue at this time. 7. Will add fungal cultures given review of urine culture and poor clinical state. Will defer empiric antifungal therapy at this point. 8. Sedation w/ Precedex, Propofol, Fentanyl - will adjust as needed for adequate sedation. 9. Patient will likely require central venous access at some point. Currently not requiring pressors at this point, so we can manage w/ peripherals x2 for now. Will decline CVL until nephrology able to weigh in on possible need for HD as this would require HD cath versus standard triple lumen cath. Will not put patient through both procedures if not absolutely necessary. I have personally spent 80 minutes of critical care time in the direct management of this patient. This is a life/limb threatening event. This includes time spent evaluating patient, direct bedside care, chart review, placing orders, interpretation of diagnostic studies, discussion with consultants, patient, and family members, as well as other required patient management activities. This time is exclusive of all separately billable procedures, and teaching time and separate from and in addition to any other critical care service time. Subjective At 0100, I was alerted by nursing staff the patient was having increasing tachypnea, tachycardia, and increasing oxygen requirement. Apparently, the patient had went from a 6 L on OxyMask to 15 L with O2 saturations fluctuating between the 80s to low 90s. I did immediately assess the patient at bedside. The patient has worsening tachypnea from earlier in the evening. The patient is still able to communicate in short answers. Cannot complete full sentences at this time. I had a discussion with the patient regarding clinical concerns for worsening decompensation. I expressed my concern for airway protection and increasing risk for further decompensation and need for emergent intubation. At this point, the patient states that she is very tired. She is agreeable to intubation. At this point, I did order ABG and speak with the emergency department attending. Patient's blood gas demonstrates a metabolic acidosis with a PaO2 of 75% despite 15 L OxyMask. Given the patient's rapidly declining status, I did feel that emergent intubation was most appropriate for continued management, particularly given the patient's multiple comorbidities including diabetes with recent treatment for DKA, metabolic acidosis with poor renal function, and multiple septic emboli from bacterial endocarditis. Earlier in the evening, the patient was found to be hyperkalemic with a potassium of 5.9. This had been corrected by myself with insulin, glucose, and calcium gluconate. Despite this treatment, I am still concerned the patient may be hyperkalemic. Because of this, coupled with the patient's CO2 levels, I did elect to preemptively treat the patient with 2 A of sodium bicarbonate prior to RSI medications. In discussion with emergency department provider, it was agreed that the patient is at high risk for rapid decompensation. Patient was awake and alert on discussion. She was able to answer name, date of , and current year. The patient does have episodes of disoriented thinking as well as some possible underlying hallucinations. Despite this, she is able to make decisions and is comfortable with plan for intubation as she reports that she is having increasing difficulty with breathing. Endotracheal intubation was performed by myself with anesthesia/sedation performed by emergency department physician. Please see separate notes regarding procedural information. At this point, I did elect to repeat laboratory assessments as the patient certainly is showing clinical decline despite aggressive management. Patient's repeat labs demonstrated significant leukocytosis which has worsened from recent labs. In addition, the patient has shown consistent chemistries with borderline hyponatremia, hyperkalemia, and acute renal failure with oliguria. Surprisingly, the patient's lactic acid is not elevated. Her pro-Waldo is elevated 8.13. Post intubation x-ray is concerning for progressively worsening pulmonary edema which is more evident on the RIGHT sided lung pink versus left , however, I am concerned for area of consolidation in the right upper lobe as well. Patient does have what appears to be a consolidated pneumonia in the LEFT lower lobe which is progressively worsened from presentation. I did add fungal cultures in addition to HIV screening, which the patient had verbally consented to prior to intubation. Physical Exam 2 Vital Signs (Past 24 Hours): Last Vital Signs Temp 36.8 C 10/10/18 16:00 Pulse 105 H 10/10/18 18:00 Resp 22 10/10/18 18:00 BP 111/80 10/10/18 18:00 Pulse Ox 97 10/10/18 18:00 Physical Exam: VITAL SIGNS - Vital signs and nursing notes were reviewed. GENERAL - 37-year-old female appearing older than her stated age who is in significant respiratory distress with tachypnea and tachycardia. Able to communicate in short brief words. Unable to communicate with full sentences. MOUTH/OROPHARYNX - Without perioral cyanosis. Severely dry mucous membranes. NECK - Neck with FROM. Supple to palpation. LUNGS -tachypneic with coarse breath sounds appreciated throughout all lung pink. CARDIAC -tachycardic. No adventitious sounds appreciated likely secondary to tachycardia. ABDOMEN - Abdominal contour flat without pulsations or visible masses. BS normoactive all four quadrants. No tenderness, palpable masses, hepatosplenomegaly, or ascites noted. EXTREMITIES - No clubbing or peripheral cyanosis. Edema to the LEFT wrist noted w/ TTP and pain throughout ROM. +3/5 radial and dorsalis pedis pulses palpated throughout. +5/5 strength noted in UE/LE bilaterally. NEUROLOGIC - Cranial nerves II through XII grossly intact. PSYCH - A&Ox3 despite episodes of hallucinations and disorganized speech.
[2018-10-11] MEDS: PROPOFOL 1,000 MG/100 ML VIAL IV SCH ×2 (02:00→12:01)
[2018-10-11] MEDS ORDERED: ICU PROTOCOL FOR HYPERGLYCEMIA PRN (02:07)
[2018-10-11] MEDS: HYDROmorphone INJ 1 MG/ML SYRINGE IV PRN (02:18)
[2018-10-11 02:44] LABS: Hematocrit (blood only) 31.2 % (37-47); Hemoglobin 10.6 g/dL (12.0-16.0); Mean Corpuscular Volume 79.6 fL (80-100); Platelet Count 72 K/uL (130-400); RDW Coefficient of Variation 17.2 % (11.5-14.5); RDW Standard Deviation 49.9 fL (36.4-46.3); Red Blood Count 3.92 M/uL (4.2-5.4); White Blood Count 33.81 K/uL (4.8-10.8)
[2018-10-11 02:46] LABS: Basophils # (auto) 0.05 K/uL (0-0.2); Basophils % (auto) 0.1 %; Dohle Bodies 3+; Echinocytes 2+; Eosinophils # (auto) 0.15 K/uL (0-0.5); Eosinophils % (auto) 0.4 %; Immature Granulocytes # (auto) 0.43 K/uL (0.00-0.02); Immature Granulocytes % (auto) 1.3 %; Lymphocytes # (auto) 3.16 K/uL (1.2-3.4); Lymphocytes % (auto) 9.3 %; Monocytes # (auto) 1.49 K/uL (0.11-0.59); Monocytes % (auto) 4.4 %; Neutrophils # (auto) 28.53 K/uL (1.4-6.5); Neutrophils % (auto) 84.5 %; Toxic Granulation 1+; Toxic Vacuolation 1+
[2018-10-11] MEDS: DEXMEDETOMIDINE HCL 400 MCG in 0.9 % SODIUM CHLORIDE 96 ML IV SCH ×4 (02:57→10:18)
[2018-10-11 03:01] LABS: Alanine Aminotransferase 9 U/L (12-78); Albumin Level 1.5 gm/dl (3.4-5.0); Alkaline Phosphatase 314 U/L (45-117); Aspartate Aminotransferase 16 U/L (15-37); BUN Creatinine Ratio 17.2 (10-20); Bilirubin Direct 0.4 mg/dl (0-0.2); Bilirubin,Total 0.7 mg/dl (0.2-1); Blood Urea Nitrogen 78 mg/dl (7-18); Calcium 7.7 mg/dl (8.5-10.1); Carbon Dioxide 18 mmol/L (21-32); Chloride 108 mmol/L (98-107); Creatine Kinase 32 U/L (26-192); Creatinine Clr Calc Pharmacy 16.3 ml/min; Est GFR (African American) 13.4; Est GFR (Non-African American) 11.6; Glucose 159 mg/dl (70-99); Magnesium 2.2 mg/dl (1.8-2.4); Phosphorus 6.4 mg/dl (2.5-4.9); Potassium 5.5 mmol/L (3.5-5.1); Sodium 132 mmol/L (136-145); Total Protein 6.9 gm/dl (6.4-8.2); Troponin I < 0.015 ng/ml (0-0.045)
--- NOTE | 2018-10-11 03:06 | Procedure Note ---
Procedure Note Date of Service October 11, 2018 Time of Procedure: 5 Procedure: Arterial Line Placement Attending: Dr. Mccormick APC: Taco Johnson PA-C Indication: Monitoring on Pressors Anesthesia: Lidocaine 1% Consent was signed and placed on the chart prior to procedure. Indication, risks , and benefits were explained at length. A time-out was completed verifying correct patient, procedure, site, positioning , and implant(s) or special equipment if applicable. Kong�s test was performed to ensure adequate perfusion. Patient�s RIGHT wrist was prepped and draped in the usual sterile fashion. Ultrasound guidance was used to aid needle placement. A 20g Arrow arterial line was introduced into the RIGHT Radial artery. Catheter was threaded, and the needle was removed with appropriate blood return. Good waveform was observed. The patient tolerated the procedure well. Confirmation of placement with ultrasound. Blood Loss: Minimal Complications: None Procedural Ultrasound Guidance: Procedure Date: 10/11/2018 Indication: Frequent ABGs, Need for evaluating pressures. Attending: Dr. Mccormick APC: Taco Johnson PA-C Artery Identified: YES Line confirmed in Artery with ultrasound: YES Complications: NONE Patient tolerated procedure: WELL
--- NOTE | 2018-10-11 03:17 | Emergency Department Note ---
ED Visit Note Was contacted by the senior compensation analyst PA in the ICU to help secure an airway via intubation on a patient there. Patient was evaluated bedside by myself, is currently admitted with endocarditis, and is having worsening renal function leading to increased respiratory distress. Patient has been on an Oxymask at 15 L/min and had continued increased work of breathing, and given her current complicated medical course, the physician casino assistant manager had discussed with her intubation in order to help protect her airway, control her breathing, while they continue to pursue other management. Patient was in agreement with this and consent form was signed in my presence and I cosigned this. Patient with dry mucous membranes, ulcerations versus early thrush noted on the tongue, [place] 2, [place] dentition, adequate neck and jaw. Given patient's worsening deterioration in a short amount of time, the ICU PA was concerned that she would have a rapid decompensation and wanted to pursue early airway management. We discussed this at bedside and set up for video laryngoscopy with additional airway adjuncts present. RT was present at bedside. Patient was semi-recumbent. I provided sedation/induction for the procedure using etomidate 20 mg and rocuronium 100 mg IV. I then assisted the physician casino assistant manager in performing the intubation with the use of video laryngoscopy. Vocal cords were visualized and a 7.5 ET tube was passed through the vocal cords. Stylet removed, balloon inflated, and confirmation of placement additionally with positive color change on capnography, condensation in the ET tube, and equal bilateral breath sounds, with no adventitious sounds noted over the epigastrium. Post intubation chest x-ray was ordered. Continued post intubation sedation was ordered by the PA as the patient was already on Precedex , but additional as needed's were added. .
[2018-10-11] MEDS ORDERED: fentaNYL citrate 100 MCG/2 ML VIAL IV PRN (03:47)
[2018-10-11 03:59] LABS: Hepatitis B Surface Antigen Neg (Neg)
[2018-10-11] MEDS: fentaNYL DRIP 1,250 MCG/250 ML BAG IV SCH ×2 (04:02→15:23)
[2018-10-11] MEDS: fentaNYL citrate 100 MCG/2 ML VIAL IV PRN ×2 (04:20→06:35)
[2018-10-11 04:28] LABS: Hepatitis C IgG 13Yrs+Old_Rflx Neg (Neg)
[2018-10-11 05:35] LABS: iSTAT Arterial Blood Gas HCO3 14 meg/L (19-24); iSTAT Carbon Dioxide 15 mEq/l (24-31); iSTAT FiO2 60 %
[2018-10-11] MEDS: NOREPINEPHRINE BIT INJ 8 MG in DEXTROSE 5% 500 ML IV SCH (06:28)
--- NOTE | 2018-10-11 06:44 | XRay Report ---
XR chest 1V portable CLINICAL HISTORY: s/p intubation tube position COMPARISON STUDY: 10/07/2018 FINDINGS: Endotracheal tube 3 cm both homero. Progressive bilateral parenchymal infiltrative change. Small left effusion versus left basilar consolidation. Nasogastric tube within the stomach. IMPRESSION: 1. Progressive bilateral parenchymal infiltrates versus pulmonary edema. 2. Endotracheal tube 3 cm above the homero. 3. Nasogastric tube within the stomach. The above report was generated using voice recognition software. It may contain grammatical, syntax or spelling errors. Electronically signed by: Franco Zuniga M.D. 10/11/2018 6:43 AM
--- NOTE | 2018-10-11 07:31 | Family Medicine Progress Note ---
Date of Service October 11, 2018 Assessment & Plan (1) MRSA (methicillin resistant Staphylococcus aureus) septicemia: Princess Katz is a 37 year old woman with a history of IV drug use who presented 10/07/18 with marked polyuria, poor diabetes control, and intense pain with multiple foci. RESPIRATORY DISTRESS Patient had to be intubated overnight due to worsening work of breathing and fatigue requiring increasing oxygen to maintain saturation Today she is oxygenating well on the vent MRSA BACTEREMIA Route of access most likely IV drug use Two cultures from time of admission positive for MRSA Borderline sensitivity to Vancomycin CHELSEA = 2 Per ID switched Abx to ceftaroline 200 mg BID per ID Tricuspid valve endocarditis, lungs with septic emboli and likely multiple joints infected Continuing IV ceftaroline 200mg BID RENAL INJURY Patient continues to be oliguric 0.11 (mL/kg/hr) Creatinine risen from 1.85 on admission to 4.55 possibly ATN vs methamphetamine renal toxicity vs buprenorphine renal toxicity May require dialysis due to worsening hyperkalemia Will consult nephrology INFECTIVE ENDOCARDITIS Valve appears to still be functional very mild tricuspid regurgitation per cardiology Continuing IV abx Patient will need intermediate frame tender IV anti MRSA coverage, complicated by her ongoing IV drug use ID on board DKA Blood sugar 1220 on admission Sugars have stabilized, transitioned to subcutaneous insulin from IV Extreme Multifocal Pain Intubated and sedated today Anemia Hemoglobin stable 10.6 today Diabetes Will educate patient and encourage them to seek outpatient follow up and improve diabetes control A1C 12.7 IV drug use Will breastfeeding peer counselor patient on IV drug use cessation options. Hopefully hospitalization will be shock patient needs to make a change COde: Full Code Dispo: ICU (2) Infective endocarditis: (3) Right shoulder pain: (4) Wrist pain, left: (5) Type 1 diabetes: (6) Drug abuse, IV: Supervising Physician Co-Signing Physician Notes I personally examined the patient and verified all cotton points of history and exam, discussed case, and agree with decision making with Dr Infante. intubated sedated. getting HD. no distress. technical healthcare consultant input appreciated Vitals noted, intubated, sedated. getting HD through R sided IJ. breathing calmly on vent. diffuse mild/moderate edema c/w third spacing. Hyperglycemic dehydration�and uncontrolled type 1 diabetes�continue titrating insulin management, follow and continue to adjust fluid support. Acute renal failure�fortunately renal ultrasound did not show anything telling for an infarct, but progression of acidosis and hyperkalemia --> HD started today Hyperkalemia�HD Abdominal pain-now sedated. will want to obtain CT abd/pelvis once we can at least give PO contrast to delineate this further. continue abx, no worrisome findings for intraabdominal catastrophes though Anemia-continues to be stable, continue to follow closely. MRSA bacteremia and septic emboli complicated by endocarditis, probably septic wrist with tenosynovitis. In discussion with cardiology who read the echo, the valve integrity is intact, so there is no concern for need of acute surgical intervention. between ARF and CHELSEA on vanco - changed to ceftalorine. Pain�probably one-part withdrawal in 1 part septic emboli. now sedated on ventilator Acute hypoxia�related to her pulmonary septic emboli. now on ventilator Hyponatremia�fluids/HD Uncontrolled type 1 diabetes�she will need extensive education about this, otherwise titrate insulin management as above IV drug abuse� will need education and supportive care. Nurse navigator has gotten her a phone number to get back into maintenance therapy. Thrombocytopenia and mild coagulopathy�possibly related to sepsis, her INR did correct a little with vitamin K, begging the question of a degree of nutritional deficiency. continue to follow DVT prophylaxis�pharmacologic is risky given thrombocytopenia and coagulopathy. Fortunately she does not have any evidence of a GI bleed, but pharmacologic is strongly relatively contraindicated at this time and mechanical is of dubious benefit. Helder Vazquezrs intubated overnight for increased work of breathing and poor oxygenation. She is currently intubated and sedated. Review of Systems Unobtainable due to endotracheal tube and Unobtainable due to reduced consciousness Physical Exam 2 Vital Signs (Past 24 Hours): Last Vital Signs Temp 36.8 C 10/10/18 20:07 Pulse 84 10/11/18 06:50 Resp 27 H 10/11/18 05:17 BP 93/56 L 10/11/18 06:50 Pulse Ox 83 L 10/11/18 06:50 Constitutional: + mechanically ventilated; no acute distress Respiratory: Auscultation: + crackles and + rhonchi Breath Sounds bilaterally Cardiovascular: Rate/Rhythm: regular rate and regular rhythm Heart Sounds: normal S1 and normal S2; no click, no gallop, no murmur and no cardiac rub Extremities: + edema (1+ edema of lower legs) Gastrointestinal (Abdomen): Inspection/Auscultation: abdomen normal to inspection Percussion/Palpation: abdomen soft Skin: Raised red previously tender area on lateral aspect of left thumb, bug bites down lower legs _ (1) Type 1 diabetes Chronic kidney disease stage: Diabetes mellitus complication detail: Diabetes mellitus complication status: with hyperglycemia Diabetes mellitus macular edema: Diabetic retinopathy severity: Laterality: Proliferative retinopathy type: Qualified Code(s): E10.65 - Type 1 diabetes mellitus with hyperglycemia
[2018-10-11] MEDS ORDERED: INSULIN GLARGINE SOLOSTAR 100 UNITS/ML 3 ML PEN SC ONE (08:00)
[2018-10-11] MEDS: CEFTAROLINE FOSAMIL ACETATE 200 MG in SODIUM CHLORIDE 0.9% 250 ML IV SCH ×2 (09:16→16:11)
[2018-10-11] MEDS: CHOLECALCIFEROL 1,000 UNITS TAB PO SCH (09:17)
[2018-10-11] MEDS: PANTOprazole 40 MG in SYRINGE 0 ML IV SCH ×2 (09:17→21:18)
[2018-10-11] MEDS: NYSTATIN SUSP 500,000 U/5 ML UDC PO SCH ×4 (09:17→21:17)
[2018-10-11 09:24] LABS: BUN Creatinine Ratio 16.1 (10-20); Calcium 7.3 mg/dl (8.5-10.1); Creatinine Clr Calc Pharmacy 15.6 ml/min; Est GFR (African American) 12.1; Est GFR (Non-African American) 10.4; Potassium 5.6 mmol/L (3.5-5.1)
[2018-10-11] MEDS ORDERED: SODIUM CHLORIDE 0.9% 1000ML 1,000 ML IV PRN (09:28)
[2018-10-11] MEDS ORDERED: ALBUMIN 25% 50 ML IV SCH (09:28)
[2018-10-11] MEDS ORDERED: VECURONIUM BROMIDE 10 MG VIAL ONE (10:38)
--- NOTE | 2018-10-11 11:16 | Pharmacy Report ---
Pharmacy Glycemic Short Note 2 - Date of Service October 11, 2018 - Glycemic Short BSG Results (Last 24 hours): 10/10/18 10/10/18 10/10/18 11:33 11:38 15:05 Glucose 211 H 222 H POC Glucose 217 H 10/10/18 10/10/18 10/10/18 16:16 18:35 22:39 Glucose 177 H POC Glucose 217 H 208 H 10/10/18 10/11/18 10/11/18 23:05 01:22 02:14 Glucose 172 H 159 H POC Glucose 125 H 10/11/18 10/11/18 10/11/18 02:14 04:27 07:32 Glucose Cancelled 168 H POC Glucose 196 H 10/11/18 08:05 Glucose POC Glucose 185 H OUTPATIENT ANTIDIABETIC REGIMEN: * Basaglar 32 units QAM * Novolog - dose unknown * A1c = 12.7% 10/07/18 The patient is currently receiving: * Basal insulin: Lantus SC qAM, 15 units on 10/08, 18 units on 10/09, 22 units on * Correctional Insulin: Novolog Correction per scale ACHS Goal Range: Low 120-150 mg/dL Correction Factor: 25 mg/dL/unit * Prandial insulin: Per carb ratio of 1 unit per 9 grams CHO consumed ASSESSMENT: 10/11/18 * Type 1 diabetic admitted to ICU with MRSA endocarditis complicated by septic pulm emboli * BSGs above goal over last 24 hrs. She is basal insulin deficient. Will titrate basal insulin dose upwards today. * Additional correctional insulin will be needed until basal deficiency corrected * NEW events: pt will begin dialysis today - which often leads to improved insulin sensitivity PLAN FOR INPATIENT GLYCEMIC CONTROL: * Basal insulin * Lantus 22 units SQ Q AM + 8 units Q PM * Bolus insulin (increased dosage) * NovoLog per scale Q4hrs while NPO * Goal Range: Low 120 mg/dL - High 150 mg/dL * Correction Factor: 30 mg/dL/unit * Nutritional / Prandial insulin per carb ratio of 1 unit per 10 grams CHO consumed
--- NOTE | 2018-10-11 11:33 | XRay Report ---
XR chest 1V portable CLINICAL HISTORY: Dialysis catheter placement. COMPARISON STUDY: Chest CT October 08, 2018 and chest radiograph performed earlier today. FINDINGS: Interval placement of a right internal jugular catheter is noted. Catheter tip projects ove r the confluence of the brachiocephalic veins. Tip of endotracheal tube is 4.1 cm above the homero. T ip of nasogastric tube is below lower aspect of this image but at least within the body of the stomac h. Bilateral pleural effusions, left larger than right, are again noted. No pneumothorax. Multifocal consolidation is again noted. The appearance of the chest is unchanged. IMPRESSION: 1. No pneumothorax following placement of a right internal jugular catheter. Catheter tip projects ov er the confluence of the brachiocephalic veins. The catheter could be advanced 4 cm to reach the mid SVC. 2. No significant change in bilateral airspace opacities which favor pneumonia. Superimposed pulmonar y edema cannot be excluded. 3. Persistent bilateral pleural effusions. Electronically signed by: Randy Ley M.D. 10/11/2018 11:31 AMr
[2018-10-11 11:52] LABS: Hepatitis B Surface Antibody Non-Immune
[2018-10-11] MEDS ORDERED: Nursing to Pharmacy Communication ONE (12:57)
--- NOTE | 2018-10-11 13:21 | Nephrology Consultation ---
Date of Consultation October 11, 2018 Assessment & Plan (1) Acute kidney injury: 37 year old white female w/ IDDM & h/o IVDA presents with DKA, MRSA sepsis, endocarditis and KAREN. KAREN is likely multifactoral including dehydration at time of admission, sepsis and recent Vancomycin administration. Patient is now oliguric w/ volume overload requiring mechanical ventilation. She requires pressor support and has multiple electrolyte abnomalities. -- Plan of care discussed w/ ICU team. Dr. Mccormick will place temporary IJ HD catheter -- Will provide HD today to correct hyperkalemia, metabolic acidosis and azotemia. Relative hypotension precludes UF but patient is currently oxygenating well w/ mechanical ventilation -- Monitor PRP (2) MRSA (methicillin resistant Staphylococcus aureus) septicemia: -- ID is following -- Agree w/ change from Vanco to Ceftaroline. Recommend dosing as Ceftaroline 200mg IV q 12 hours given after dialysis or as directed by pharmacy helper. History of Present Illness Reason for Consultation: KAREN requiring HD Attending Physician: Carroll Le, History of Present Illness Miss Katz is a 37 year old white female who is seen at the request of Dr. Mccormick for evaluation of oliguric KAREN requiring HD. She is currently in the ICU , sedated and receiving mechanical ventilation. Medical records were reviewed today and are summarized as follows: Miss Katz has a longstanding h/o IDDM. She has been poorly adherent to checking her blood sugar or administering insulin. She also has a longstanding h/o IVDA. Miss Katz presented to [facility] 10/07/18 w/ DKA and KAREN. Serum creatinine was 1.4. Blood cultures were positive for MRSA. Echocardiogram revealed a large vegetation on the tricuspid valve. Patient had evidence of septic pulmonary emboli and seeding to multiple joints. She was initially treated w/ IV Vancomycin and Zosyn but was found to have progressive renal insufficiency. She was changed to Ceftaroline 10/10/18. Creatinine has risen to 4.9. Patient is oliguric w/ metabolic acidosis and hyperkalemia. She required intubation and mechanical ventilation last night due to progressive volume overload. Nephrology consultation has been requested to provide HD. Allergies Allergy/AdvReac Type Severity Reaction Status Date / Time iodine Allergy Severe RASH Verified 10/07/18 13:01 Iodinated Contrast- Oral and Allergy Unknown RASH Verified 10/07/18 13:01 IV Dye Home Medications Home Medications Medication Instructions Recorded Confirmed Type buprenorphine HCl 8 mg SUBLINGUAL BID 10/07/18 10/07/18 History insulin aspart U-100 [Novolog 1 dose SUBCUT DIRECTED 10/07/18 10/07/18 History Flexpen U-100 Insulin] insulin glargine [Basaglar KwikPen 32 units SUBCUT QAM 10/07/18 10/07/18 History U-100 Insulin] Patient History Medical History Type 1 diabetes (Chronic) MRSA (methicillin resistant staph aureus) culture positive (Chronic) Abscess of forearm, right Drug abuse, IV (Acute) Hyperglycemia (Resolved) Retroperitoneal abscess Social History Current Living Situation: Family Current Living Situation Comment: LIVES ALONE WITH CHILDREN. Other Information That Helps Us Care for You: No Feels Safe at Home: Yes Safety Concerns: Feels Safe At This Time Smoking Status: Current every day smoker Tobacco Type: cigarettes Cigarettes per Day: 10 Do You Dip or Chew Tobacco: No Second Hand Exposure: Yes Tobacco Cessation Education Requested by Patient: Yes Hx Alcohol Use: No Hx Substance Use: Yes substance use type: marijuana, IV drugs, methamphetamine and other Substance Use Type Other:: SUBUTEX Last Used Substance: Days (ago) Last Used Substance Other:: SUNDAY Beliefs That Will Affect Care: None Communication Ability: Effective Physical Exam 2 Vital Signs (Past 24 Hours): Last Vital Signs Temp 36.4 C L 10/11/18 12:00 Pulse 81 10/11/18 12:45 Resp 16 10/11/18 11:55 BP 100/52 L 10/11/18 12:45 Pulse Ox 93 10/11/18 12:45 Eyes: PERRL, conjunctivae normal, anicteric sclerae ENMT: orotracheal intubation Respiratory: coarse breath sounds bilaterally Cardiovascular: Rate/Rhythm: regular rate and regular rhythm Heart Sounds: no murmur and no cardiac rub Gastrointestinal (Abdomen): hypoactive bowel sounds Results & Data Laboratory Results Laboratory Tests 10/10/18 10/10/18 10/11/18 02:45 04:25 02:14 WBC 33.81 H* D Hgb 10.6 L Hct 31.2 L Plt Count 72 L INR 1.3 H Sodium Potassium Chloride Carbon Dioxide BUN Creatinine Glucose Calcium Phosphorus Albumin Urine Color Dark Yellow Urine Appearance Turbid H Urine pH 5.0 Ur Specific [place] 1.034 H Urine Protein 1+ H Urine Glucose (UA) Negative Urine Ketones Trace H Urine Blood 3+ H Urine Nitrite Negative Urine Bilirubin Negative Urine Urobilinogen Negative Ur Leukocyte Esterase 3+ H Urine WBC (Auto) >30 H Urine RBC (Auto) >30 H Calcium Oxalate Crystal Present H Urine Yeast Budding w/ Hyphae H 10/11/18 02:14 WBC Hgb Hct Plt Count INR Sodium 132 L Potassium 5.5 H Chloride 108 H Carbon Dioxide 18 L BUN 78 H Creatinine 4.55 H* Glucose 159 H Calcium 7.7 L Phosphorus 6.4 H Albumin 1.5 L Urine Color Urine Appearance Urine pH Ur Specific [place] Urine Protein Urine Glucose (UA) Urine Ketones Urine Blood Urine Nitrite Urine Bilirubin Urine Urobilinogen Ur Leukocyte Esterase Urine WBC (Auto) Urine RBC (Auto) Calcium Oxalate Crystal Urine Yeast CXR 10/11/18: 1. No pneumothorax following placement of a right internal jugular catheter. Catheter tip projects over the confluence of the brachiocephalic veins. The catheter could be advanced 4 cm to reach the mid SVC. 2. No significant change in bilateral airspace opacities which favor pneumonia. Superimposed pulmonary edema cannot be excluded. 3. Persistent bilateral pleural effusions.
[2018-10-11] MEDS: HEPARIN SOD 5,000 UNIT/0.5 ML VIAL SQ SCH ×2 (16:11→21:18)
[2018-10-11] MEDS ORDERED: ETOMIDATE 2 MG/ML 20 ML VIAL IV ONE (16:40)
[2018-10-11] MEDS ORDERED: ROCURONIUM BROMIDE 10 MG/ML 10 ML VIAL IV ONE (16:40)
--- NOTE | 2018-10-11 17:28 | Dialysis Progress Note ---
Date of Service October 11, 2018 Subjective Patient seen during dialysis. No complications noted Physical Exam 2 Vital Signs (Past 24 Hours): Last Vital Signs Temp 36.6 C 10/11/18 16:04 Pulse 84 10/11/18 16:04 Resp 16 10/11/18 11:55 BP 123/74 10/11/18 16:04 Pulse Ox 97 10/11/18 14:00
--- NOTE | 2018-10-11 19:10 | Infectious Disease Progress Nt ---
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 Follow -up blood cultures remain positive, would obtain repeat cultures to see if have cleared bacteremia. If continues to be positive, will likely need transfer to tertiary care center for possible surgery. Will follow. (2) Infective endocarditis: Subjective Patient seen in follow-up patient seen in follow-up for tricuspid valve endocarditis with MRSA. Continues with severe chest and abdominal pain. Multiple joint pains. White count slightly better, has developed severe renal insufficiency. Blood cultures still positive. Review of Systems All systems reviewed & are unremarkable except as noted in HPI & below Physical Exam 2 Vital Signs (Past 24 Hours): Last Vital Signs Temp 36.6 C 10/11/18 16:04 Pulse 89 10/11/18 18:45 Resp 17 10/11/18 18:22 BP 105/58 L 10/11/18 18:45 Pulse Ox 97 10/11/18 18:45 Constitutional: WD/WN, vitals as above + acute distress Eyes: PERRL, conjunctivae normal, anicteric sclerae ENMT: external ear and nose normal, oropharynx normal Neck: trachea midline, no thyromegaly neck nontender Respiratory: normal respiratory effort, lungs clear to auscultation normal percussion; no respiratory distress Cardiovascular: Rate/Rhythm: regular rate and regular rhythm Gastrointestinal (Abdomen): normal bowel sounds, soft, nontender, no hepatosplenomegaly Musculoskeletal: no cyanosis or clubbing, extremities motor strength 5/5 No spinal tenderness, no joint swelling or erythema Skin: no rashes, warm and dry no lesions Neurologic: moves all extremities and awake; no focal motor deficits Motor/ Sensory: no sensory deficit Psychiatric: A+Ox3, euthymic affect Lymphatic: no cervical or axillary lymphadenopathy no inguinal lymphadenopathy Results & Data Laboratory Results Short CBC 10/11/18 Range/Units 02:14 WBC 33.81 H* D (4.8-10.8) K/uL Hgb 10.6 L (12.0-16.0) g/dL Hct 31.2 L (37-47) % Plt Count 72 L (130-400) K/uL BMP 10/10/18 10/10/18 10/10/18 18:35 19:29 23:05 Sodium 130 L 133 L Potassium 5.9 H 5.5 H Chloride 107 110 H Carbon Dioxide 15 L 16 L BUN 77 H 78 H Creatinine 4.63 H* 4.64 H* Glucose 177 H 172 H Calcium 7.6 L 7.5 L 10/11/18 10/11/18 10/11/18 02:14 02:14 07:32 Sodium 132 L Cancelled 133 L Potassium 5.5 H Cancelled 5.6 H Chloride 108 H Cancelled 109 H Carbon Dioxide 18 L Cancelled 15 L BUN 78 H Cancelled 80 H Creatinine 4.55 H* Cancelled 4.96 H* D Glucose 159 H Cancelled 168 H Calcium 7.7 L Cancelled 7.3 L Cardiac Enzymes 10/11/18 Range/Units 02:14 Total Creatine Kinase 32 (26-192) U/L Troponin I < 0.015 (0-0.045) ng/ml Liver Function 10/11/18 Range/Units 02:14 Total Bilirubin 0.7 (0.2-1) mg/dl Direct Bilirubin 0.4 H (0-0.2) mg/dl AST 16 (15-37) U/L ALT 9 L (12-78) U/L Alkaline Phosphatase 314 H (45-117) U/L Albumin 1.5 L (3.4-5.0) gm/dl Diagnostic Findings Microbiology 10/11/18 03:42 Blood Fungal Smear - Final 10/10/18 08:43 Blood Blood Culture - Preliminary Gram positive cocci 10/10/18 08:37 Blood Blood Culture - Preliminary Gram positive cocci 10/07/18 13:00 Urine,Straight Cath Urine Culture - Final No growth - less than 1,000 colonies/mL. 10/07/18 12:26 Blood Blood Culture - Final Staph aureus MRSA 10/07/18 13:54 Blood Blood Culture - Final Staph aureus MRSA cc: ~ XR chest 1V portable CLINICAL HISTORY: Dialysis catheter placement. COMPARISON STUDY: Chest CT October 08, 2018 and chest radiograph performed earlier today. FINDINGS: Interval placement of a right internal jugular catheter is noted. Catheter tip projects over the confluence of the brachiocephalic veins. Tip of endotracheal tube is 4.1 cm above the homero. Tip of nasogastric tube is below lower aspect of this image but at least within the body of the stomach. Bilateral pleural effusions, left larger than right, are again noted. No pneumothorax. Multifocal consolidation is again noted. The appearance of the chest is unchanged. IMPRESSION: 1. No pneumothorax following placement of a right internal jugular catheter. Catheter tip projects over the confluence of the brachiocephalic veins. The catheter could be advanced 4 cm to reach the mid SVC. 2. No significant change in bilateral airspace opacities which favor pneumonia. Superimposed pulmonary edema cannot be excluded. 3. Persistent bilateral pleural effusions. Electronically signed by: Randy Ley M.D. 10/11/2018 11:31 AMr
--- NOTE | 2018-10-11 19:16 | Critical Care Progress Note ---
Date of Service October 11, 2018 Assessment & Plan (1) MRSA (methicillin resistant Staphylococcus aureus) septicemia: IMPRESSION: 1. Acute hypoxic respiratory failure. 2. Metabolic Acidosis secondary to AK I. 3. 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 4. Acute Renal Failure due to drugs induced ATN. 5. Sepsis w/ MRSA Bacteremia 6. IVDU. PLAN: 1. Continue antibiotic, I would check with ID to change the patient to vancomycin with adjusted dose to her renal function. 2. Appreciate Dr. Parker input, start the patient on hemodialysis. 3. Continue with DVT and GI prophylaxis. 4. Daily labs. 5.discussed with cardiology, the patient has a vegetation on the tricuspid valve measuring 2-3 cm, no need for SHELLEY. 6. The patient had hemodialysis catheter placed in the right IJ and left radial A-line. Dictated separately. 7. avoid nephrotoxic drugs. 8. Continue with fentanyl and propofol. 9. The patient required rocuronium periodically to avoid damaging herself and her lines. 10. No family member were available at the bedside, no phone number to contact , the patient has the above work in [place] to save her life. 2 providers decided the need for the above workup. 11. I will be glad to update the family if at any given time a family member showed up. 12. Discussed in details with the staff on rounds. 13. Ventilator management. 14. Vent bundle. Critical care time spent with the patient was 45 minutes excluding procedure time. Subjective The patient deteriorated from a respiratory standpoint overnight and resulted in intubation. Part of the problem that she has is development of metabolic acidosis secondary to acute renal dysfunction. The patient intubated and had a line placed which she pulled out due to severe agitation. Review of system was not obtainable as the patient was intubated and sedated in the ICU. Physical Exam 2 Vital Signs (Past 24 Hours): Last Vital Signs Temp 36.6 C 10/11/18 16:04 Pulse 89 10/11/18 18:45 Resp 17 10/11/18 18:22 BP 105/58 L 10/11/18 18:45 Pulse Ox 97 10/11/18 18:45 Physical Exam: Her vital signs remained stable, she did have low-grade fever, S1-S2 regular rate and rhythm, rhonchi bilaterally, abdomen is benign, no edema. Neurologically is difficult to assess. Occasionally the patient is agitated. Results & Data Laboratory Results Blood cultures are consistent with MRSA, white count are increasing to 33,000, hematocrit of 31, platelets of 72. Diagnostic Findings Chest x-ray was reviewed which showed bilateral infiltrates and hemodialysis catheter with the tip at the SVC, ET tube is in good position.
--- NOTE | 2018-10-11 20:02 | Procedure Note ---
Procedure Note Date of Service October 11, 2018 Note Hemodialysis catheter was placed due to the patient who is in acute renal failure and without urine output. No consent was obtainable as the patient being intubated and no family member. 2 physicians decided that the patient will require dialysis. The patient had the procedure done on the right IJ anteriorly, under strict sterile field, using Seldinger technique, the skin was prepped with chlorhexidine, injected with 10 mL of 1% lidocaine, did not require ultrasound, the vein was visible, using a scalpel and 2 dilators, a triple-lumen catheter was placed, to 13 cm, see secured with 2 sutures, covered with surgical dressing, chest x-ray confirmed the tip of the catheter at the SVC , no pneumothorax, no immediate complication, tolerated well.
--- NOTE | 2018-10-11 20:03 | Procedure Note ---
Procedure Note Date of Service October 11, 2018 Note A line was placed in the left radial, the patient pulled out the right radial A- line, under strict sterile field, skin was prepped with chlorhexidine, using Seldinger technique, the line was placed and secured with surgical dressing, 1 suture, a waves were noted on the monitor, no immediate complication.
[2018-10-11] MEDS ORDERED: INSULIN GLARGINE SOLOSTAR 100 UNITS/ML 3 ML PEN SC SCH ×2 (21:00→21:30)
[2018-10-12] MEDS: INSULIN ASPART 100 UNITS/ML 3 ML PEN SC SCH ×6 (00:16→20:18)
[2018-10-12] MEDS: PROPOFOL 1,000 MG/100 ML VIAL IV SCH ×3 (00:17→23:07)
[2018-10-12] MEDS: fentaNYL DRIP 1,250 MCG/250 ML BAG IV SCH ×3 (00:17→18:01)
[2018-10-12] MEDS: ACETAMINOPHEN 1000 MG/100 ML IV IV PRN (00:18)
[2018-10-12] MEDS: CEFTAROLINE FOSAMIL ACETATE 200 MG in SODIUM CHLORIDE 0.9% 250 ML IV SCH ×2 (02:30→17:55)
[2018-10-12 04:57] LABS: BUN Creatinine Ratio 12.1 (10-20); Creatinine Clr Calc Pharmacy 22.9 ml/min; Est GFR (African American) 19.3; Est GFR (Non-African American) 16.7; Magnesium 1.8 mg/dl (1.8-2.4); Potassium 3.7 mmol/L (3.5-5.1)
[2018-10-12 05:05] LABS: Hematocrit (blood only) 22.6 % (37-47); Hemoglobin 7.8 g/dL (12.0-16.0); Mean Corpuscular Hgb Conc 34.5 g/dL (32-36); Mean Corpuscular Volume 77.7 fL (80-100); Platelet Count 76 K/uL (130-400); RDW Coefficient of Variation 16.9 % (11.5-14.5); RDW Standard Deviation 48.5 fL (36.4-46.3); Red Blood Count 2.91 M/uL (4.2-5.4)
[2018-10-12 05:07] LABS: Phosphorus 4.3 mg/dl (2.5-4.9)
[2018-10-12] MEDS: HEPARIN SOD 5,000 UNIT/0.5 ML VIAL SQ SCH (05:47)
[2018-10-12 05:57] LABS: iSTAT Arterial Blood Gas HCO3 20 meg/L (19-24); iSTAT Carbon Dioxide 21 mEq/l (24-31); iSTAT FiO2 40 %
--- NOTE | 2018-10-12 07:16 | XRay Report ---
XR chest 1V portable CLINICAL HISTORY: Respiratory failure COMPARISON STUDY: 10/11/2018 FINDINGS: There is an endotracheal tube 19 mm above the homero. There is a right internal jugular shaylee tral venous catheter. There is a nasogastric tube which passes into the stomach. The heart is borderl ine enlarged. There are extensive bilateral pulmonary airspace opacities similar to the preceding baudilio dy. Associated pleural effusions may be present.[ IMPRESSION: Persistent extensive bilateral pulmonary airspace opacities Electronically signed by: Aidan Kendrick M.D. 10/12/2018 7:14 AM
[2018-10-12] MEDS: NOREPINEPHRINE BIT INJ 8 MG in DEXTROSE 5% 500 ML IV SCH (08:27)
[2018-10-12] MEDS ORDERED: INSULIN GLARGINE SOLOSTAR 100 UNITS/ML 3 ML PEN SC SCH (09:00)
[2018-10-12] MEDS: CHOLECALCIFEROL 1,000 UNITS TAB PO SCH (09:02)
[2018-10-12] MEDS: NYSTATIN SUSP 500,000 U/5 ML UDC PO SCH ×4 (09:02→20:27)
[2018-10-12] MEDS: PANTOprazole 40 MG in SYRINGE 0 ML IV SCH ×2 (09:02→20:27)
[2018-10-12] MEDS ORDERED: LACTULOSE SYRUP 30 GM/45 ML UDP PO PRN (09:33)
--- NOTE | 2018-10-12 10:53 | Pharmacy Report ---
Pharmacy Glycemic Short Note 2 - Date of Service October 12, 2018 - Glycemic Short BSG Results (Last 24 hours): 10/11/18 10/11/18 10/11/18 12:05 15:48 21:07 Glucose POC Glucose 102 H 88 POC Glucose (other) 78 10/12/18 10/12/18 10/12/18 00:07 04:10 08:16 Glucose 67 L POC Glucose POC Glucose (other) 76 71 OUTPATIENT ANTIDIABETIC REGIMEN: * Basaglar 32 units QAM * Novolog - dose unknown * A1c = 12.7% 10/07/18 The patient is currently receiving: * Basal insulin: Lantus SC 22 units on 10/11, 0 units at HS (held due to BSGs in 70s) * Correctional Insulin: Novolog Correction per scale ACHS Goal Range: Low 120-150 mg/dL Correction Factor: 20 mg/dL/unit * Prandial insulin: Per carb ratio of 1 unit per 9 grams CHO consumed ASSESSMENT: 10/12/18 * BSGs trending lower over the last 24 hrs. * Mild hypoglycemia noted this AM (BSG 67-71) with 22 units of Lantus on board * Pt remains intubated, sedated and requiring pressors (Norepi) * I suspect yesterday's HD session led to improved insulin sensitivity today * BSGs probably trending lower due to NPO status as well. Discussed need for IVF's containing dextrose vs enteral feedings w/ Admissions Director to allow for continued basal insulin administration in a type 1 diabetic. * Will hold Lantus dose this AM until some form of CHO provision implemented. 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 She is basal insulin deficient. Will titrate basal insulin dose upwards today. * Additional correctional insulin will be needed until basal deficiency corrected * NEW events: pt will begin dialysis today - which often leads to improved insulin sensitivity PLAN FOR INPATIENT GLYCEMIC CONTROL: * Basal insulin (dosage decrease) * Hold Lantus until CHO provision (IV or enterally) initiated * Decrease Lantus and split dose BID: 9 units BID * Bolus insulin (no change in dosage) * NovoLog per scale Q4hrs while NPO * Goal Range: Low 120 mg/dL - High 150 mg/dL * Correction Factor: 20 mg/dL/unit * Nutritional / Prandial insulin per carb ratio of 1 unit per 9 grams CHO consumed
[2018-10-12] MEDS ORDERED: SODIUM CHLORIDE 0.9% 1000ML 1,000 ML IV PRN (11:22)
--- NOTE | 2018-10-12 11:30 | Nephrology Progress Note ---
Date of Service October 12, 2018 Assessment & Plan (1) Acute kidney injury: 37 year old white female w/ IDDM & h/o IVDA presents with DKA, MRSA sepsis, endocarditis and KAREN. KAREN is likely multifactoral including dehydration at time of admission, sepsis and recent Vancomycin administration. Patient is now oliguric w/ volume overload requiring mechanical ventilation. She requires pressor support and has multiple electrolyte abnomalities. -- plan for dialysis today for 4 hours patient remained oliguric/anuric --will assess Sunday for next dialysis treatment in between renal function worsened she remain the anuric, will schedule for tunnel dialysis catheter and removal of temporary catheter --1 PRBC transfusion during dialysis has hemoglobin drop significantly -- Monitor PRP Subjective Princess Was seen examined this as. She is intubated but awake and alert and communicated. Remained anuric , hypotensive requiring pressor support. Had 1st dialysis treatment yesterday for 4 hours tolerated well. Review of Systems detail ROS otherwise unremarkable admission above p.m. Physical Exam 2 Vital Signs (Past 24 Hours): Last Vital Signs Temp 36.9 C 10/12/18 04:00 Pulse 75 10/12/18 11:15 Resp 37 H 10/12/18 08:00 BP 120/71 10/12/18 11:15 Pulse Ox 98 10/12/18 09:30 Constitutional: + ill appearing ENMT: Intubated Respiratory: Auscultation: + crackles Cardiovascular: RRR, no murmur, no edema Extremities: + edema Gastrointestinal (Abdomen): Inspection/Auscultation: normal bowel sounds Neurologic: moves all extremities and awake Psychiatric: Orientation: alert and oriented x 3 Insight: good insight Judgement: good judgement
[2018-10-12] MEDS: DEXTROSE 10% 1,000 ML IV SCH (15:30)
[2018-10-12] MEDS ORDERED: INSULIN GLARGINE SOLOSTAR 100 UNITS/ML 3 ML PEN SC ONE ×2 (16:00→21:00)
--- NOTE | 2018-10-12 17:01 | Family Medicine Progress Note ---
Date of Service October 12, 2018 Assessment & Plan (1) MRSA (methicillin resistant Staphylococcus aureus) septicemia: Princess Katz is a 37 year old woman with a history of IV drug use who presented 10/07/18 with marked polyuria, poor diabetes control, and intense pain with multiple foci. RESPIRATORY DISTRESS Patient remains on vent oxygenating well MRSA BACTEREMIA Route of access most likely IV drug use Two cultures from time of admission positive for MRSA Two more cultures three days later after treatment with IV Vanc also positive for MRSA Borderline sensitivity to Vancomycin CHELSEA = 2 Per ID switched Abx to ceftaroline 200 mg BID per ID 2 more cultures taken yesterday results pending. Tricuspid valve endocarditis, lungs with septic emboli and likely multiple joints infected Continuing IV ceftaroline 200mg BID RENAL INJURY Multiple possible etiologies of her renal failure. Nephrology on board, dialyzed today INFECTIVE ENDOCARDITIS Valve appears to still be functional very mild tricuspid regurgitation per cardiology Continuing IV abx Patient will need fpc IV anti MRSA coverage, complicated by her ongoing IV drug use ID on board DKA Blood sugar 1220 on admission Sugars have stabilized, transitioned to subcutaneous insulin from IV Extreme Multifocal Pain Adequate control today Anemia Patient had to be transfused one unit with dialysis Hgb 7.8 today Diabetes A1C 12.7 IV drug use Will dormitory counselor patient on IV drug use cessation options. Hopefully hospitalization will be shock patient needs to make a change COde: Full Code Dispo: ICU Supervising Physician Co-Signing Physician Notes I personally examined the patient and verified all cotton points of history and exam, discussed case, and agree with decision making with Dr Infante. intubated but currently able to communicate surprisingly well by writing. She seems to show very good insight into her current situation and actually expresses appreciation of her care. Nephrology and I update her to the best of our ability at the bedside together. Vitals noted, intubated, but appears awake and alert. Lungs sound coarse but surprisingly relatively clear on the vent cardio is regular abdomen is soft extremities show ongoing edema Hyperglycemic dehydration�and uncontrolled type 1 diabetes�continue titrating insulin management, continue to keep sugars at goal range Acute renal failure�likely multifactorial, but hopefully mostly acute. Ongoing hemodialysis Hyperkalemia�HD has corrected this continue to follow Abdominal pain-seems to not be there today, continue to follow closely Anemia-follow closely and transfuse as needed MRSA bacteremia and septic emboli complicated by endocarditis, probably septic wrist with tenosynovitis. Second set of blood cultures was positive, third set is been sent today. Continues of tolerating Pain�probably one-part withdrawal in 1 part septic emboli. She does appear much more comfortable right now Acute hypoxia�related to her pulmonary septic emboli. now on ventilator and this has been remedied Hyponatremia�fluids/HD Uncontrolled type 1 diabetes�she will need extensive education about this, otherwise as above IV drug abuse� will need education and supportive care. Nurse navigator has gotten her a phone number to get back into maintenance therapy. Thrombocytopenia and mild coagulopathy�possibly related to sepsis, her INR did correct a little with vitamin K, begging the question of a degree of nutritional deficiency. Follow DVT prophylaxis�pharmacologic is risky given thrombocytopenia and coagulopathy. Fortunately she does not have any evidence of a GI bleed, but pharmacologic is strongly relatively contraindicated at this time and mechanical is of dubious benefit. Subjective Princess Vazquezrs intubated but alert and conversing with paper and pen. She is clearly uncomfortable but was still making jokes via her pen and paper and desiring to wash her hair. Review of systems was limited due to endotracheal intubation. Physical Exam 2 Vital Signs (Past 24 Hours): Last Vital Signs Temp 36.5 C 10/12/18 15:14 Pulse 93 H 10/12/18 16:30 Resp 20 10/12/18 14:22 BP 130/61 10/12/18 16:30 Pulse Ox 100 10/12/18 14:22 Constitutional: well developed, well nourished, + disheveled, cooperative, + mechanically ventilated and + edematous; no altered mental status and + uncomfortable Eyes: PERRL, conjunctivae normal, anicteric sclerae Respiratory: Auscultation: + rales and + rhonchi Cardiovascular: RRR, no murmur, no edema Rate/Rhythm: regular rate and regular rhythm Heart Sounds: normal S1 and normal S2; no click, no gallop, no murmur and no cardiac rub Extremities: no calf tenderness Gastrointestinal (Abdomen): Inspection/Auscultation: abdomen normal to inspection; abdomen not distended Percussion/Palpation: abdomen soft; abdomen nontender Musculoskeletal: Extremities: extremities normal to inspection
[2018-10-12 19:11] LABS: Hematocrit (blood only) 25.1 % (37-47); Hemoglobin 8.7 g/dL (12.0-16.0)
--- NOTE | 2018-10-12 20:22 | Critical Care Progress Note ---
Date of Service October 12, 2018 Assessment & Plan (1) MRSA (methicillin resistant Staphylococcus aureus) septicemia: IMPRESSION: 1. Acute hypoxic respiratory failure. 2. Metabolic Acidosis secondary to AK I. 3. 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 4. Acute Renal Failure due to drugs induced ATN. Started on hemodialysis, second treatment today. 5. Sepsis w/ MRSA Bacteremia 6. IVDU. PLAN: 1. The patient treated with Ceftaroline, renally adjusted dose. 2. Appreciate Dr. Parker input, tolerating dialysis well. 3. Continue with DVT and GI prophylaxis. 4. Daily labs. 5.the patient had repeat blood cultures, likely will still be positive, the patient has vegetation on the tricuspid valve. 6. Start the patient on tube feeding. 7. avoid nephrotoxic drugs. 8. Continue with fentanyl and propofol drip for sedation. 9. Did not require paralytics. 10. No family member were available at the bedside, no phone number to contact , the patient has the above work in [place] to save her life. 11. Check guaiac stool due to the drop in her hematocrit. 12. Discussed in details with the staff on rounds. 13. Ventilator management. 14. Vent bundle. 15. Received 1 unit of blood by nephrology during dialysis. Critical care time spent with the patient was 45 minutes excluding procedure time. Subjective The patient is more appropriate, opening her eyes and following commands, remains intubated, hemodynamically stable, no events overnight, underwent dialysis yesterday and she is under going to dialysis today as well. Nodded her head to simple commands. Denies any pain. Physical Exam 2 Vital Signs (Past 24 Hours): Last Vital Signs Temp 36.4 C L 10/12/18 18:05 Pulse 98 H 10/12/18 18:05 Resp 17 10/12/18 17:45 BP 108/65 10/12/18 18:05 Pulse Ox 100 10/12/18 18:00 Physical Exam: Vital signs are stable, S1-S2 regular rate and rhythm, rhonchi bilaterally, abdomen is benign, no edema, edema in the upper extremities noted from previous, all lines are well-maintained. Neurologically nonfocal. No skin rash at the moment. Abnormality in her palms from previous. Results & Data Laboratory Results Labs showed white count of 20,000, hematocrit of 25 and platelets of 76. The rest of her chemistry appeared to improve. Diagnostic Findings Chest x-ray showed bilateral infiltrates, all lines are supportive. Possible pulmonary vascular congestion.
[2018-10-13] MEDS: INSULIN ASPART 100 UNITS/ML 3 ML PEN SC SCH ×6 (00:23→19:58)
[2018-10-13] MEDS: fentaNYL DRIP 1,250 MCG/250 ML BAG IV SCH ×2 (03:57→11:04)
[2018-10-13 05:21] LABS: Hematocrit (blood only) 25.1 % (37-47); Hemoglobin 8.7 g/dL (12.0-16.0); Mean Corpuscular Hgb Conc 34.7 g/dL (32-36); Mean Platelet Volume 11.3 fL (7.4-10.4); Platelet Count 130 K/uL (130-400); RDW Coefficient of Variation 16.5 % (11.5-14.5); RDW Standard Deviation 47.9 fL (36.4-46.3); Red Blood Count 3.22 M/uL (4.2-5.4); White Blood Count 19.54 K/uL (4.8-10.8)
[2018-10-13 05:25] LABS: BUN Creatinine Ratio 9.2 (10-20); Calcium 7.2 mg/dl (8.5-10.1); Creatinine Clr Calc Pharmacy 30.6 ml/min; Est GFR (African American) 26.6; Est GFR (Non-African American) 22.9
[2018-10-13] MEDS: CEFTAROLINE FOSAMIL ACETATE 200 MG in SODIUM CHLORIDE 0.9% 250 ML IV SCH ×2 (05:48→16:01)
[2018-10-13 06:05] LABS: Basophils # (auto) 0.03 K/uL (0-0.2); Basophils % (auto) 0.2 %; Echinocytes 1+; Eosinophils # (auto) 0.29 K/uL (0-0.5); Eosinophils % (auto) 1.5 %; Immature Granulocytes # (auto) 0.13 K/uL (0.00-0.02); Immature Granulocytes % (auto) 0.7 %; Lymphocytes # (auto) 1.98 K/uL (1.2-3.4); Lymphocytes % (auto) 10.1 %; Monocytes % (auto) 5.1 %; Neutrophils # (auto) 16.11 K/uL (1.4-6.5); Neutrophils % (auto) 82.4 %
[2018-10-13] MEDS: INSULIN GLARGINE SOLOSTAR 100 UNITS/ML 3 ML PEN SC SCH ×2 (07:50→19:57)
--- NOTE | 2018-10-13 08:48 | Pharmacy Report ---
Pharmacy Glycemic Short Note 2 - Date of Service October 13, 2018 - Glycemic Short BSG Results (Last 24 hours): 10/12/18 10/12/18 10/12/18 11:59 16:07 20:14 Glucose POC Glucose (other) 85 106 H 120 H 10/13/18 10/13/18 10/13/18 00:16 04:33 04:35 Glucose 155 H POC Glucose (other) 147 H 160 H 10/13/18 07:46 Glucose POC Glucose (other) 152 H OUTPATIENT ANTIDIABETIC REGIMEN: * Basaglar 32 units QAM * Novolog - dose unknown * A1c = 12.7% 10/07/18 The patient is currently receiving: * Basal insulin: Lantus SC 4 units + 5 units yesterday afternoon and evening * Correctional Insulin: Novolog Correction per scale ACHS Goal Range: Low 120-150 mg/dL Correction Factor: 20 mg/dL/unit * Prandial insulin: Per carb ratio of 1 unit per 9 grams CHO consumed ASSESSMENT: 10/13/18 * BSGs now at goal * D10 @30cc/hr initiated yesterday afternoon in order to allow for continue source of CHO which allows for continued basal insulin admin in T1DM * Plan to resume a higher dose of Lantus today as D10 to continue. Dose will be split BID to allow for greater dosing flexibility * Pt remains intubated, sedated, and of pressors at this time. * If pt's clinical status changes substantially, would recommend IV insulin infusion 10/12/18 * BSGs trending lower over the last 24 hrs. * Mild hypoglycemia noted this AM (BSG 67-71) with 22 units of Lantus on board * Pt remains intubated, sedated and requiring pressors (Norepi) * I suspect yesterday's HD session led to improved insulin sensitivity today * BSGs probably trending lower due to NPO status as well. Discussed need for IVF's containing dextrose vs enteral feedings w/ Min[employer] Surveying Technician to allow for continued basal insulin administration in a type 1 diabetic. * Will hold Lantus dose this AM until some form of CHO provision implemented. 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 She is basal insulin deficient. Will titrate basal insulin dose upwards today. * Additional correctional insulin will be needed until basal deficiency corrected * NEW events: pt will begin dialysis today - which often leads to improved insulin sensitivity PLAN FOR INPATIENT GLYCEMIC CONTROL: * Monitor BSGs with iSTAT due to pressors * Basal insulin (dosage decrease) * Resume Lantus 9 units SQ BID * Bolus insulin (no change in dosage) * NovoLog per scale Q4hrs while NPO * Goal Range: Low 120 mg/dL - High 150 mg/dL * Correction Factor: 20 mg/dL/unit * Nutritional / Prandial insulin per carb ratio of 1 unit per 9 grams CHO consumed
[2018-10-13] MEDS: PANTOprazole 40 MG in SYRINGE 0 ML IV SCH ×2 (08:57→19:59)
[2018-10-13] MEDS: CHOLECALCIFEROL 1,000 UNITS TAB PO SCH (08:57)
[2018-10-13] MEDS: NYSTATIN SUSP 500,000 U/5 ML UDC PO SCH ×4 (08:57→19:58)
[2018-10-13] MEDS ORDERED: SODIUM CHLORIDE 0.9% 1000ML 1,000 ML IV PRN (09:50)
[2018-10-13] MEDS: PROPOFOL 1,000 MG/100 ML VIAL IV SCH (09:56)
[2018-10-13] MEDS: NOREPINEPHRINE BIT INJ 8 MG in DEXTROSE 5% 500 ML IV SCH (09:56)
[2018-10-13] MEDS ORDERED: HYDROmorphone INJ 1 MG/ML SYRINGE IV PRN (11:34)
--- NOTE | 2018-10-13 11:35 | Nephrology Progress Note ---
Date of Service October 13, 2018 Assessment & Plan (1) Acute kidney injury: 37 year old white female w/ IDDM & h/o IVDA presents with DKA, MRSA sepsis, endocarditis and KAREN. KAREN is likely multifactoral including dehydration at time of admission, sepsis and recent Vancomycin administration. Patient is now oliguric w/ volume overload requiring mechanical ventilation. She requires pressor support and has multiple electrolyte abnomalities. -- plan for dialysis tomorrow for 4 hours as patient remained oliguric and volume overloaded --may need tunnel dialysis catheter if remain dilayis dependent -- s/p 1 PRBC on 10/12/18 -- Monitor PRP Will follow Subjective Princess Was seen examined this morning. She is intubated but awake and alert and communicated. Remained oliguric , hypotensive requiring pressor support. Had dialysis treatment yesterday for 4 hours tolerated well. Physical Exam 2 Vital Signs (Past 24 Hours): Last Vital Signs Temp 37.3 C 10/13/18 08:01 Pulse 107 H 10/13/18 11:01 Resp 17 10/13/18 07:26 BP 117/61 10/13/18 11:01 Pulse Ox 96 10/13/18 11:01 Constitutional: + ill appearing Respiratory: Auscultation: + crackles Cardiovascular: RRR, no murmur, no edema Extremities: + edema Gastrointestinal (Abdomen): Inspection/Auscultation: normal bowel sounds Neurologic: moves all extremities and awake Psychiatric: Orientation: alert and oriented x 3 Insight: good insight Judgement: good judgement
[2018-10-13] MEDS: HYDROmorphone INJ 1 MG/ML SYRINGE IV SCH ×3 (11:55→19:55)
[2018-10-13 12:25] LABS: iSTAT Arterial Blood Gas HCO3 23 meg/L (19-24); iSTAT Carbon Dioxide 24 mEq/l (24-31); iSTAT FiO2 30 %
[2018-10-13] MEDS: DEXTROSE 10% 1,000 ML IV SCH (13:36)
--- NOTE | 2018-10-13 14:43 | Critical Care Progress Note ---
Date of Service October 13, 2018 Assessment & Plan (1) MRSA (methicillin resistant Staphylococcus aureus) septicemia: IMPRESSION: 1. Acute hypoxic respiratory failure. Secondary to septic emboli with acute lung injury. 2. Metabolic Acidosis secondary to AK I. Improved with dialysis. 3. Endocarditis with sub-tricuspid valve vegetation measuring 2-3 cm (per cardiology). 4. Acute Renal Failure due to drugs induced ATN. Started on hemodialysis, received 2 treatments and plan for treatment on Sunday. 5. Sepsis w/ MRSA Bacteremia currently on Ceftaroline. 6. IVDU. ( Suboxone and Meth). PLAN: 1. The patient treated with Ceftaroline, renally adjusted dose. Minimal response and adjustment, she remains blood culture positive for MRSA. 2. Perform CPAP trial on daily basis, the patient does not seem to be ready although she tolerated today for 2 hours but become more short of breath and tachypneic. She is doing well now on demand mode. 3. Continue with DVT and GI prophylaxis. 4. Daily labs. 5. repeat echocardiogram this week to evaluate for tricuspid valve regurgitation, SHELLEY would be preferable and monitoring the size of the vegetation. 6. Continue tube feeding. 7. Dialysis per Dr. Zuniga, appreciate her input. 8. Start the patient on Dilaudid 1 mg IV every 4 hours standing and 1 mg IV every 4 hours as needed for breakthrough in favor of tapering the fentanyl drip to off. The patient has a very high tolerance to narcotics due to her history of narcotic IV abuse. 9. Taper the propofol accordingly, the patient is currently on 20 mics per KG per minute. 10. No family member were available at the bedside, no phone number to contact , the patient has the above work in [place] to save her life. 11. Hematocrit has been stable after 1 unit of transfusion yesterday, and remains at 25. Her anemia is likely related to endocarditis. No evidence of GI bleeding. 12. Appreciate ID input, unfortunately, it would be very difficult to assess the effect of Ceftaroline while the patient is on dialysis. Consider rifampin for synergy. High dose of Vanco with toxic level (>20). Would be another option. Appreciate ID input in that regard. 13. Ventilator management. 14. Vent bundle. 15. Appreciate all consults involved in the patient. 16. Discussed with the staff on rounds and details, And with other principles. Critical care time spent with the patient was 45 minutes. Subjective The patient open her eyes and follow simple command, she is writing her answers , she remains intubated, she is well sedated on propofol and fentanyl, she does have occasional agitation, she did tolerate the dialysis yesterday, and she will be having another dose tomorrow, no events overnight. Physical Exam 2 Vital Signs (Past 24 Hours): Last Vital Signs Temp 37.4 C 10/13/18 12:00 Pulse 115 H 10/13/18 13:30 Resp 18 10/13/18 11:13 BP 118/59 L 10/13/18 13:00 Pulse Ox 95 10/13/18 13:30 Physical Exam: Vital signs are stable, O2 saturation 95% on the ventilator, tolerated CPAP trial for 2 hours then become more short of breath required ventilation, all lines has been well maintained, no stridor, S1-S2 regular rate and rhythm, distant crackles bilaterally, abdomen is benign, no edema. Neurologically difficult to assess. The patient following commands but she is was sedated as well. Results & Data Laboratory Results Her labs were reviewed personally, showing reduction of the white count to 19, 000, hematocrit of 25 and platelets of 130. She has bandemia and left shift. PH is 7.3 8/38/79/23. BMP showed BUN and creatinine 24 and 2.59. Diagnostic Findings No new imaging, previous chest x-ray showed similar infiltrates bilaterally affecting multiple lobes. All lines are supported.
[2018-10-13] MEDS: rifAMPin 600 MG in DEXTROSE 5% 500 ML IV SCH (16:59)
--- NOTE | 2018-10-13 17:34 | Hospitalist Progress Note ---
Date of Service October 13, 2018 Assessment & Plan (1) MRSA (methicillin resistant Staphylococcus aureus) septicemia: MRSA BACTEREMIA Route of access most likely IV drug use Initial cultures positive for MRSA, she was started on vancomycin empirically at the day of admission. 2 days later cultures were still positive for MRSA, after discussion with ID her antibiotics were changed to ceftalorine. This was done both due to the CHELSEA of 2, and her worsening renal failure. Now blood cultures drawn from yesterday are still positive for MRSA. Lens Blank Gauger is adding rifampin for additional MRSA coverage, I agree. Case discussed with cardiothoracic surgery at [facility] because of the persistent bacteremia, but it appears that right now surgery is not indicated. -Continue Ceftalorine, rifampin added -Repeat echo tomorrow, repeat blood cultures tomorrow as well -Ongoing supportive care -Downstream complications appear to be septic emboli in the lungs, as well as wrist and shoulder findings. MRI brain and CT abdomen pelvis have been considered but her clinical status has not allowed, and she has not shown any acute need for this emergently Acute renal failure -She has had hemodialysis twice now, continue to follow -Baseline renal function not certain, her creatinine was around 2 on admission. -Prior to intubation she related that she was only a diabetic for about a year, so underlying nephropathy seems unlikely -Lens Blank Gauger has noted that meth injection can lead to renal failure as well -Her acute worsening appears to be more of an ATN picture related to her sepsis and dehydration INFECTIVE ENDOCARDITIS See above DKA and hyperglycemic dehydration Blood sugar 1220 on admission For all practical purposes as this has resolved, continue to follow sugars and manage per ICU protocol Extreme Multifocal Pain This probably from both septic emboli and withdrawal. Since arrival in the ICU and the ability to have more aggressive pain medicine she has been much more comfortable Anemia Patient had to be transfused one unit with dialysis Continue to follow Diabetes A1C 12.7, she will need extensive education post recovery from this IV drug use Nurse navigator obtained information for the patient to set up maintenance treatment, but obviously she will need to recover from all of this first. Thrombocytopenia and mild coagulopathy�possibly related to sepsis, her INR did correct a little with vitamin K, begging the question of a degree of nutritional deficiency. Follow DVT prophylaxis�pharmacologic is risky given thrombocytopenia and coagulopathy. Fortunately she does not have any evidence of a GI bleed, but pharmacologic is strongly relatively contraindicated at this time and mechanical is of dubious benefit. COde: Full Code Dispo: ICU Subjective Still intubated, awakens and is able to write and interact. Full HPI and review of systems essentially impossible, but she seems to be doing okay. She wonders if she will be extubated soon, and she wonders about being hungry. Case discussed with stave mill hand extensively. I also had a 25-minute phone call with [facility] to discuss the case with cardiothoracic surgery, given the persistent bacteremia. Right now valve surgery does not appear to be indicated , and she independent of our plan of repeating an echo to follow for the vegetation on her own suggested repeating an echo to follow the vegetation. Review of Systems Unobtainable due to endotracheal tube Physical Exam 2 Vital Signs (Past 24 Hours): Last Vital Signs Temp 37.4 C 10/13/18 16:00 Pulse 107 H 10/13/18 16:00 Resp 18 10/13/18 11:13 BP 109/56 L 10/13/18 16:00 Pulse Ox 96 10/13/18 16:00 Physical Exam: General she is awake and alert on the vent, she seems to be oriented although of course this is not entirely able to be judged. She does appear fatigued. HEENT normocephalic atraumatic mucous membranes are moist. Her ET tube and OG tube appear to be intact without any local breakdown. Her breathing is unlabored on the vent, but she is at the tail end of failing a CPAP trial whenever I am talking to her. Cardio is regular rate. Abdomen is soft, skin shows no rashes no pallor or icterus, she does have the ongoing lesions as before. She has ongoing edema as before.
[2018-10-13] MEDS ORDERED: IMPACT LIQD 1.0 CAL 1,000 ML BAG NG SCH (18:00)
[2018-10-13] MEDS: PROPOFOL 1,000 MG/100 ML VIAL IV PRN (22:10)
[2018-10-14] MEDS: HYDROmorphone INJ 1 MG/ML SYRINGE IV SCH ×6 (00:06→19:40)
[2018-10-14] MEDS: INSULIN ASPART 100 UNITS/ML 3 ML PEN SC SCH ×3 (00:31→08:00)
[2018-10-14] MEDS: CEFTAROLINE FOSAMIL ACETATE 200 MG in SODIUM CHLORIDE 0.9% 250 ML IV SCH (04:09)
[2018-10-14 04:39] LABS: Hematocrit (blood only) 24.6 % (37-47); Hemoglobin 8.5 g/dL (12.0-16.0); Mean Corpuscular Hgb Conc 34.6 g/dL (32-36); Mean Corpuscular Volume 77.8 fL (80-100); Mean Platelet Volume 11.2 fL (7.4-10.4); Platelet Count 172 K/uL (130-400); RDW Coefficient of Variation 16.5 % (11.5-14.5); RDW Standard Deviation 46.9 fL (36.4-46.3); Red Blood Count 3.16 M/uL (4.2-5.4); White Blood Count 18.89 K/uL (4.8-10.8)
[2018-10-14 05:02] LABS: BUN Creatinine Ratio 8.8 (10-20); Calcium 7.3 mg/dl (8.5-10.1); Est GFR (African American) 18.5; Potassium 3.9 mmol/L (3.5-5.1)
[2018-10-14 05:23] LABS: Phosphorus 6.8 mg/dl (2.5-4.9)
[2018-10-14 06:13] LABS: iSTAT Arterial Blood Gas HCO3 23 meg/L (19-24); iSTAT Carbon Dioxide 24 mEq/l (24-31); iSTAT FiO2 30 %
[2018-10-14 07:01] LABS: HIV 1 RNA PCR Copies/ML <20 NOT DETECTED COPIES/mL (<20); HIV-1 RNA Log Copies/mL <1.30 NOT DETECTED (<1.30)
[2018-10-14] MEDS: PROPOFOL 1,000 MG/100 ML VIAL IV PRN ×3 (07:59→19:17)
[2018-10-14] MEDS ORDERED: INSULIN GLARGINE SOLOSTAR 100 UNITS/ML 3 ML PEN SC SCH (08:00)
[2018-10-14] MEDS: NYSTATIN SUSP 500,000 U/5 ML UDC PO SCH ×4 (08:00→22:42)
[2018-10-14] MEDS: PANTOprazole 40 MG in SYRINGE 0 ML IV SCH ×2 (08:00→22:42)
[2018-10-14] MEDS ORDERED: HYDROCORTISONE SOD IV STA (08:45)
[2018-10-14] MEDS ORDERED: INSULIN PROTOCOL GOAL RANGE ONE (08:50)
[2018-10-14] MEDS ORDERED: MODERATE STRESS LEVEL ONE (08:50)
--- NOTE | 2018-10-14 09:07 | XRay Report ---
XR chest 1V portable CLINICAL HISTORY: Respiratory failure, currently intubated COMPARISON STUDY: 10/12/2018 FINDINGS: There is a nasogastric tube within the stomach. There is a right internal jugular central v enous catheter. There is an endotracheal tube positioned 37 mm above the homero. There are persistent extensive bilateral pulmonary airspace opacities most pronounced within the left lower lung zone. Th ere is perhaps slight improvement in the right upper lung zone region. Small pleural effusions are teran spected.[ IMPRESSION: Persistent bilateral pulmonary airspace opacities with perhaps slight improvement in the region of the right upper lung zone. Electronically signed by: Aidan Kendrick M.D. 10/14/2018 9:06 AM
[2018-10-14] MEDS: INSULIN REGULAR 250 UNITS in SODIUM CHLORIDE 0.9% 247.5 ML IV SCH (09:33)
--- NOTE | 2018-10-14 09:48 | Nephrology Progress Note ---
Date of Service October 14, 2018 Assessment & Plan (1) Acute kidney injury: 37 year old white female w/ IDDM & h/o IVDA presents with DKA, MRSA sepsis, endocarditis and KAREN. KAREN is likely multifactoral including dehydration at time of admission, sepsis and recent Vancomycin administration. Patient is now oliguric w/ volume overload requiring mechanical ventilation. She requires pressor support and has multiple electrolyte abnomalities. -- plan for dialysis today for 4 hours as patient remained anuric, rise in creatinine off dialysis and volume overloaded --request vascular sx to place TDC and remove temporary line. -- Monitor PRP Will follow Subjective Princess was seen and examined this morning. She is intubated but awake and alert and communicated. Remained oliguric , hypotensive requiring pressor support. No clear sign of renal recovery. Physical Exam 2 Vital Signs (Past 24 Hours): Last Vital Signs Temp 36.8 C 10/14/18 08:00 Pulse 108 H 10/14/18 09:00 Resp 18 10/14/18 07:53 BP 119/63 10/14/18 08:00 Pulse Ox 94 10/14/18 09:00 Constitutional: + ill appearing Respiratory: Auscultation: + crackles Cardiovascular: RRR, no murmur, no edema Extremities: + edema Gastrointestinal (Abdomen): Inspection/Auscultation: normal bowel sounds Neurologic: moves all extremities and awake Psychiatric: Orientation: alert and oriented x 3 Insight: good insight Judgement: good judgement
[2018-10-14] MEDS: CHOLECALCIFEROL 1,000 UNITS TAB PO SCH (09:56)
[2018-10-14] MEDS ORDERED: EPOETIN ALFA 10,000 UNITS/ML VIAL IV ONE (10:00)
[2018-10-14] MEDS ORDERED: INSULIN ASPART 100 UNITS/ML 3 ML PEN SC SCH (12:00)
--- NOTE | 2018-10-14 12:14 | Critical Care Progress Note ---
Date of Service October 14, 2018 Supervising Physician Co-Signing Physician Notes Reason Critically Ill: Persistent MRSA bacteremia PLAN: Neuro: History of IV drug abuse -Reportedly injecting Suboxone Sedation and analgesia -40 mcg propofol -25 mcg fentanyl and 1 mg Dilaudid every 4 hours -We will transition to oral oxycodone scheduled and remove fentanyl infusion Resp: Acute hypoxic respiratory failure -Likely multiple septic emboli -Definite weaning tomorrow may trial extubation later today after CT scan and ensure no adverse reaction to iodinated contrast CV: Endocarditis -May require SHELLEY given persistent bacteremia Fluids/Renal: Acute kidney injury -Receiving temporary renal replacement therapy ID: Receiving Teflaro and rifampin -Reviewed infectious disease recommendations Multiple orthopedic pain complaints -Reported allergy to iodine -Patient was secured airway will pretreat with medication and obtain contrasted study of the chest abdomen pelvis as well as reconstitution of the thoracic and lumbar spine to evaluate for additional sources of persistent bacteremia GI/Nutrition: Receiving tube feed formulation -Changed to nutrition recommendation Heme: Anemia NOS DVT prophylaxis: Heparin 5000 3 times daily -Venous duplex rule out DVT versus septic thrombophlebitis Endocrine: ICU hyperglycemia protocol Insulin infusion -Likely stress related and secondary to restarting tube feeds Vascular access: Right IJ HD cath left radial A-line Code Status: Full I have personally spent 95 minutes of critical care time in the direct management of this patient. This is a life/limb threatening event. This includes time spent evaluating patient, direct bedside care, chart review, placing orders, interpretation of diagnostic studies, discussion with consultants, patient, and/or family members regarding treatment decisions, as well as other required patient management activities. This time is exclusive of all separately billable procedures, and teaching time and separate from and in addition to any other critical care service time. Physical Exam 2 Vital Signs (Past 24 Hours): Last Vital Signs Temp 36.8 C 10/14/18 08:00 Pulse 91 H 10/14/18 11:34 Resp 17 10/14/18 11:34 BP 122/63 10/14/18 10:00 Pulse Ox 97 10/14/18 11:34 General: Alert. nontoxic. Skin: Warm, dry, Head: Atraumatic Ears, nose, mouth and throat: Airway obscured by endotracheal tube Cardiovascular: Normal peripheral perfusion Respiratory: no respiratory distress Gastrointestinal: Non distended Musculoskeletal: No deformity, anasarca
[2018-10-14] MEDS ORDERED: HYDROCORTISONE SOD IV ONE (13:00)
[2018-10-14] MEDS ORDERED: DiphenhydrAMINE HCL 50 MG/ML VIAL IV ONE (13:00)
[2018-10-14 13:03] LABS: INR 1.2 (0.9-1.1); Prothrombin Time 11.6 Seconds (9.0-12.0)
[2018-10-14] MEDS: HEPARIN SOD 5,000 UNIT/0.5 ML VIAL SQ SCH ×2 (13:32→22:43)
[2018-10-14] MEDS ORDERED: OPTIRAY 320 125ml IV PRN (14:00)
--- NOTE | 2018-10-14 14:23 | CT Scan Report ---
CT ANGIOGRAM OF THE CHEST CLINICAL HISTORY: Respiratory failure. Septic emboli. Pulmonary airspace opacities. Evaluate for absc ess. COMPARISON STUDY: Noncontrast chest CT dated 10/08/2018 TECHNIQUE: Following the IV administration of 94 mL of Optiray-320, CT angiogram of the thorax was pe rformed from the thoracic inlet to the lung bases utilizing the pulmonary embolus protocol. Images ar e reviewed in the axial, sagittal, and coronal planes. IV contrast was administered without complicat ion. MIP imaging was performed. A dose lowering technique was utilized adhering to the principles of ALARA. CT DOSE: FINDINGS: There is a nasogastric tube which passes the stomach. There is an endotracheal tube which terminates 2.2 cm above the homero. Axillary lymph nodes are at the upper limits of normal in size. There are mildly enlarged right hilar lymph nodes likely reactive. There is no pathologic mediastinal lymphadenopathy. There was no evidence of thoracic aortic dilatation. There were no pulmonary artery filling defects to indicate acute pulmonary embolism. There is been interval increase in the bilateral pleural effusions. There are extensive multifocal nodular airspace opacities. Many of these opacities demonstrate centra l cavitation. The findings are slightly progressive when compared the preceding study. IMPRESSION: 1. No evidence of acute pulmonary embolism 2. Increasing bilateral pleural effusions 3. Progressive extensive multifocal nodular airspace opacities, many of which demonstrate central cav itation. 4. Mild right hilar adenopathy likely reactive Electronically signed by: Aidan Kendrick M.D. 10/14/2018 2:21 PM
--- NOTE | 2018-10-14 14:30 | CT Scan Report ---
CT thoracic spine wo con CLINICAL HISTORY: 37 years-old Female presenting with Septic emboli r/o abscess. TECHNIQUE: Multidetector CT of the thoracic spine was performed without the use of intravenous contra st. IV contrast: None. A dose lowering technique was used consistent with the principles of ALARA (as low as reasonably achievable). COMPARISON: Correlation made to CT chest from 10/08/2018. CT DOSE (mGy.cm): The estimated cumulative dose is 1130.86 mGy.cm. FINDINGS: Braiding Machine Operator topogram: Extensive peripheral opacity in the mid to lower left lung with lesser degree of opac ities in the right lung. Persistent moderate bilateral pleural effusions with extensive dependent volume loss and consolidatio n consistent with passive atelectasis. Partially visualized multifocal nodular opacities in the visua lized lung parenchyma bilaterally. Some foci demonstrate central cavitation, which has significantly increased since the prior exam. An endotracheal tube terminates in the lower thoracic trachea. Nasoga stric tube descends below the diaphragm. Partially visualized right internal jugular central venous c atheter. Normal thoracic kyphosis. Vertebral bodies maintain normal height and alignment. Intervertebral disc heights preserved. No osseous neural foraminal or spinal canal narrowing. No osseous erosion. No frac ture or subluxation. IMPRESSION: 1. Interval of evolution of cavitary changes of the multifocal nodular consolidation throughout the visualized portion of the lungs, which could be compatible with septic emboli among other etiologies. 2. Stable to slight worsening in bilateral moderate pleural effusions and extensive atelectasis. 3. Appropriately positioned lines and tubes. 4. Normal CT examination of the thoracic spine. Electronically signed by: Alfredo Ascencio M.D. 10/14/2018 2:29 PM
--- NOTE | 2018-10-14 14:35 | CT Scan Report ---
CT lumbar spine wo con CT DOSE: CLINICAL HISTORY: Back pain. Septic emboli. TECHNIQUE: Helical images were acquired in transverse plane. Reformatted sagittal and coronal images were reviewed. A dose lowering technique was utilized adhering to the principles of ALARA. CONTRAST: No contrast was administered COMPARISON STUDY: None. FINDINGS: L1-2 level: There is no evidence of significant disc bulge or focal herniation. There is no evidence of spinal or foraminal stenosis. L2-3 level: There is no evidence of significant disc bulge or focal herniation. There is no evidence of spinal or foraminal stenosis. L3-4 level: There is no evidence of significant disc bulge or focal herniation. There is no evidence of spinal or foraminal stenosis. L4-5 level: There is a mild circumferential disc bulge. There is mild spinal stenosis. L5-S1 level: There is no evidence of significant disc bulge or focal herniation. There is no evidence of spinal or foraminal stenosis. No fractures subluxations or destructive lesions are visualized. There are some gas bubbles within the central mesentery region. These are likely intraluminal, with v isualization of the associated bowel loop difficult due to diffuse mesenteric edema. IMPRESSION: 1. Mild disc bulge at the L4-5 level with mild spinal stenosis 2. No fractures, subluxations, or destructive lesions are visualized Electronically signed by: Aidan Kendrick M.D. 10/14/2018 2:34 PM
--- NOTE | 2018-10-14 14:45 | CT Scan Report ---
ABDOMEN AND PELVIS CT WITH IV CONTRAST CT DOSE: HISTORY: Septic emboli TECHNIQUE: Multiaxial CT images of the abdomen and pelvis were performed following the use of intrave nous contrast. A dose lowering technique was utilized adhering to the principles of ALARA. COMPARISON STUDY: Abdomen and pelvis CT 12/15/2017. Chest CT 10/08/2018. FINDINGS: Moderate bilateral pleural effusions have increased in size. Consolidation within the bilat eral lower lobes some of which may be related to compressive atelectasis. However, there is heterogen eous enhancement and small focus of cavitation within the left lower lobe. Additionally scattered nod ular airspace opacities demonstrate cavitation. This is better appreciated on the same day chest CT. No pneumoperitoneum. No pneumatosis. A few small foci of gas bubbles within the midabdomen appear to be located within the bowel. No suspicious lytic or blastic osseous lesions. There is severe body wal l edema. There is also edema throughout the intra-abdominal fat. Nasogastric tube terminates in the b ju of the stomach. The gallbladder is mildly distended. However, no gallbladder wall thickening. The liver, adrenal glands, pancreas, and kidneys are unremarkable. No hydronephrosis. No retroperitoneal lymphadenopathy. Normal caliber abdominal aorta. The bladder is decompressed by a Briseno catheter. Th e uterus and bilateral adnexa are unremarkable. No bowel wall thickening or obstruction. Normal appen awilda. The spleen is enlarged measuring 17 cm in length. IMPRESSION: 1. Severe body wall edema. There is also severe edema within the intra-abdominal fat. 2. The gallbladder is mildly distended. However, no gallbladder wall thickening. 3. Splenomegaly. 4. Satisfactory support line placement. 5. Progressive moderate bilateral pleural effusions and multiple cavitary lesions within the lungs. T his is better appreciated on the same day chest CT. 6. No bowel wall thickening or obstruction. 7. Normal appendix. Electronically signed by: cB Gage M.D. 10/14/2018 2:44 PM
--- NOTE | 2018-10-14 14:59 | Pharmacy Report ---
PHA: Glycemic Control AP - Date of Service October 14, 2018 - Assessment & Plan The patient is currently receiving 33 units of insulin per day. BSGs ranging 152 - 244 mg/dl over the past 24hrs. Patient was initiated on tube feeds last evening with no addition of carb coverage. BSGs increased this morning likely due to tube feeds in conjunction with D10 @ 30mL/hr that was already running. TF formula was switched this morning, but will be held until late afternoon for imaging. D10 was stopped and two doses of steroids were given prior to contrast. Given elevated BSGs and numerous changes affecting BSG, the patient was placed on an insulin drip. Novolog will be placed on hold pending restarting of TF. Nurse to call pharmacy for novolog coverage. * Basal insulin: Lantus 12 units was given this morning prior to insulin infusion * Correctional Insulin: Novolog Correction per scale will be added as necessary Goal Range: Low 110 mg/dL - High 180 mg/dL Pharmacy will continue to monitor patient daily and write orders per [facility] inpatient glycemic control protocol. Thanks. * Please note that the plan above was derived based on current level of insulin resistance and hospital stress. These recommendations are appropriate for inpatient admission only. Plan of care upon discharge will need to be reassessed to avoid potential outpatient hypo/hyperglycemia.
[2018-10-14] MEDS: OXYCODONE HCL SOLN 5 MG/5 ML UDC PO SCH ×2 (15:44→22:42)
--- NOTE | 2018-10-14 17:02 | Family Medicine Progress Note ---
Date of Service October 14, 2018 Assessment & Plan (1) MRSA (methicillin resistant Staphylococcus aureus) septicemia: Princess is a 37-year-old female with a past medical history of IV drug abuse and type 1 diabetes who presented with polyuria and extremity pain and who was admitted for DKA and whose hospital stay has been complicated by MRSA septicemia with tricuspid vegetation on echo. She developed acute renal failure and required dialysis today. She required pressor support and intubation and was transferred for ICU care. MRSA septicemia �Blood cultures positive for MRSA �Borderline sensitivity to vancomycin with CHELSEA = 2 �ID consulted, based on her development of acute kidney failure and borderline sensitivity to vancomycin recommended switch to ceftaroline. Daptomycin not a good choice due to poor lung activity. �Repeat cultures pending �Echo shows tricuspid valve endocarditis �Septic emboli to lungs, shoulder, and rest �Ceftaroline 200 mg twice daily plus rifampin 600 mg daily �Currently on norepinephrine pressor support Tricuspid valve endocarditis �MRSA septicemia as above �Treatment with Ceftin Adrianne as above �Repeat echo this week �Will require prolonged IV antibiotic treatment and IV drug abuse rehab Acute hypoxic respiratory failure �In the setting of multiple septic emboli �Currently intubated, sedated with propofol �On propofol wean, failed extubation trial x2. trial of extubation possibly today Acute renal failure �Multifactorial. Contributing elements include DKA, prerenal, sepsis, and vancomycin �Nephrology following �Scheduled for dialysis today �Creatinine 3.49 today, up from 2.59 yesterday. Peak of 4.96 on 10/11/18 DKA �Blood sugar 1220 on admission �Treated with DKA protocol on admit �Glucose 155 yesterday, 244 today �Insulin GTT Multifocal pain �Multiple septic emboli �Sedated with propofol 40 mcg/KG/min �25 mcg fentanyl per hour drip �1 mg hydromorphone every 4 hour �CCU plan to transition to orals tomorrow IV drug abuse �History of injecting Suboxone �Will require counseling and possible rehab on discharge DVT proph -- Heparin (2) Infective endocarditis: (3) Acute kidney failure: (4) Type 1 diabetes: (5) Right shoulder pain: (6) Wrist pain, left: (7) Aspiration into airway: (8) Hyperglycemia: (9) Hyponatremia: Supervising Physician Co-Signing Physician Notes Resident Physician Supervision Note: I independently interviewed and examined the patient and verified the cotton history and physical, reviewed labs and image studies, discussed the case with the resident Dr. Baresel and agree with the findings and care plan. Subjective Exam limited by intubation and sedation with propofol. Princess is able to communicate via paper and pen. Endorses she continues to feel short of breath, similar to yesterday. Continues to have pain in her shoulder and wrist, same as yesterday. Wants to know when she will begin to feel better, and when she can try getting her vent/feeding tube out. Denies palpitations, chest pressure, headache. Denies feeling feverish/sweaty overnight. Review of Systems RoS limited by endotracheal tube. Physical Exam 2 Vital Signs (Past 24 Hours): Last Vital Signs Temp 36.7 C 10/14/18 03:00 Pulse 107 H 10/14/18 07:53 Resp 18 10/14/18 07:53 BP 116/69 10/14/18 06:00 Pulse Ox 97 10/14/18 07:53 Physical Exam: General: Sedated, endotracheally intubated. Communicates somewhat using paper and pen. HEENT: Atraumatic, normocephalic. Membranes moist. Pulm: ET tube in place, breathing appears unlabored, some crackles appreciated. Good air movement with symmetrical chest rise. Cardiac: RRR, -mrg. Radial pulses intact and symmetrical. Abdominal: Nontender, nondistended Extremity: Bilateral lower leg edema present Results & Data Laboratory Results 10/14/18 10/14/18 10/14/18 Range/Units 17:30 17:30 17:30 WBC (4.8-10.8) K/uL RBC (4.2-5.4) M/uL Hgb (12.0-16.0) g/dL Hct (37-47) % MCV (80-100) fL MCH (25-34) pg MCHC (32-36) g/dL RDW Std Deviation (36.4-46.3) fL RDW Coeff of Clay (11.5-14.5) % Plt Count (130-400) K/uL MPV (7.4-10.4) fL PT (9.0-12.0) Seconds INR (0.9-1.1) Sample Site POC pH (7.35-7.45) POC pCO2 (35-46) mmHg POC pO2 (80-95) mmHg POC HCO3 (19-24) frank/L POC Total CO2 (24-31) mEq/l POC Base Excess (-9-1.8) frank/L POC ABG O2 Sat (90-95) % Kong Test O2 Delivery Device POC O2 Rate Minute Ventilation POC FiO2 % Tidal Volume PEEP Sodium (136-145) mmol/L Potassium (3.5-5.1) mmol/L Chloride (98-107) mmol/L Carbon Dioxide (21-32) mmol/L Anion Gap (3-11) BUN (7-18) mg/dl Creatinine (0.6-1.2) mg/dl Est Cr Clr Drug Dosing ml/min Est GFR ( Amer) Est GFR (Non-Af Amer) BUN/Creatinine Ratio (10-20) Glucose (70-99) mg/dl POC Glucose (other) (70-99) mg/dl Calcium (8.5-10.1) mg/dl Phosphorus (2.5-4.9) mg/dl PTH Intact (18.4-80.1) pg/ml Urine Color [place] Urine Appearance Cloudy H (Clear) Urine pH 5.0 (4.5-7.5) Ur Specific [place] 1.025 (1.000-1.030) Urine Protein 1+ H (Negative) Urine Glucose (UA) Negative (Negative) Urine Ketones Trace H (Negative) Urine Blood Negative (Negative) Urine Nitrite Positive H (Negative) Urine Bilirubin Negative (Negative) Urine Urobilinogen Negative (Negative) Ur Leukocyte Esterase Trace H (Negative) Urine RBC 0-4 (0-4) /hpf Urine WBC 10-30 H (0-5) /hpf Ur Epithelial Cells 10-20 H (0-5) /lpf Urine Bacteria 2+ H (Negative) Hyaline Casts 0-5 (0-5) /lpf Urine Yeast Present H (None Prsent) Ur Random Creatinine Pending Ur Random Sodium Pending Nasal Screen MRSA (PCR) HIV-1 RNA PCR copies/ml (<20) COPIES/mL HIV-1 RNA (PCR) log (<1.30) 10/14/18 10/14/18 10/14/18 Range/Units 17:29 17:05 15:33 WBC (4.8-10.8) K/uL RBC (4.2-5.4) M/uL Hgb (12.0-16.0) g/dL Hct (37-47) % MCV (80-100) fL MCH (25-34) pg MCHC (32-36) g/dL RDW Std Deviation (36.4-46.3) fL RDW Coeff of Clay (11.5-14.5) % Plt Count (130-400) K/uL MPV (7.4-10.4) fL PT (9.0-12.0) Seconds INR (0.9-1.1) Sample Site POC pH (7.35-7.45) POC pCO2 (35-46) mmHg POC pO2 (80-95) mmHg POC HCO3 (19-24) frank/L POC Total CO2 (24-31) mEq/l POC Base Excess (-9-1.8) frank/L POC ABG O2 Sat (90-95) % Kong Test O2 Delivery Device POC O2 Rate Minute Ventilation POC FiO2 % Tidal Volume PEEP Sodium (136-145) mmol/L Potassium (3.5-5.1) mmol/L Chloride (98-107) mmol/L Carbon Dioxide (21-32) mmol/L Anion Gap (3-11) BUN (7-18) mg/dl Creatinine (0.6-1.2) mg/dl Est Cr Clr Drug Dosing ml/min Est GFR ( Amer) Est GFR (Non-Af Amer) BUN/Creatinine Ratio (10-20) Glucose (70-99) mg/dl POC Glucose (other) 144 H 169 H (70-99) mg/dl Calcium (8.5-10.1) mg/dl Phosphorus (2.5-4.9) mg/dl PTH Intact (18.4-80.1) pg/ml Urine Color Urine Appearance (Clear) Urine pH (4.5-7.5) Ur Specific [place] (1.000-1.030) Urine Protein (Negative) Urine Glucose (UA) (Negative) Urine Ketones (Negative) Urine Blood (Negative) Urine Nitrite (Negative) Urine Bilirubin (Negative) Urine Urobilinogen (Negative) Ur Leukocyte Esterase (Negative) Urine RBC (0-4) /hpf Urine WBC (0-5) /hpf Ur Epithelial Cells (0-5) /lpf Urine Bacteria (Negative) Hyaline Casts (0-5) /lpf Urine Yeast (None Prsent) Ur Random Creatinine Ur Random Sodium Nasal Screen MRSA (PCR) Pending HIV-1 RNA PCR copies/ml (<20) COPIES/mL HIV-1 RNA (PCR) log (<1.30) 10/14/18 10/14/18 10/14/18 Range/Units 14:28 13:04 12:37 WBC (4.8-10.8) K/uL RBC (4.2-5.4) M/uL Hgb (12.0-16.0) g/dL Hct (37-47) % MCV (80-100) fL MCH (25-34) pg MCHC (32-36) g/dL RDW Std Deviation (36.4-46.3) fL RDW Coeff of Clay (11.5-14.5) % Plt Count (130-400) K/uL MPV (7.4-10.4) fL PT 11.6 (9.0-12.0) Seconds INR 1.2 H (0.9-1.1) Sample Site POC pH (7.35-7.45) POC pCO2 (35-46) mmHg POC pO2 (80-95) mmHg POC HCO3 (19-24) frank/L POC Total CO2 (24-31) mEq/l POC Base Excess (-9-1.8) frank/L POC ABG O2 Sat (90-95) % Kong Test O2 Delivery Device POC O2 Rate Minute Ventilation POC FiO2 % Tidal Volume PEEP Sodium (136-145) mmol/L Potassium (3.5-5.1) mmol/L Chloride (98-107) mmol/L Carbon Dioxide (21-32) mmol/L Anion Gap (3-11) BUN (7-18) mg/dl Creatinine (0.6-1.2) mg/dl Est Cr Clr Drug Dosing ml/min Est GFR ( Amer) Est GFR (Non-Af Amer) BUN/Creatinine Ratio (10-20) Glucose (70-99) mg/dl POC Glucose (other) 194 H 208 H (70-99) mg/dl Calcium (8.5-10.1) mg/dl Phosphorus (2.5-4.9) mg/dl PTH Intact (18.4-80.1) pg/ml Urine Color Urine Appearance (Clear) Urine pH (4.5-7.5) Ur Specific [place] (1.000-1.030) Urine Protein (Negative) Urine Glucose (UA) (Negative) Urine Ketones (Negative) Urine Blood (Negative) Urine Nitrite (Negative) Urine Bilirubin (Negative) Urine Urobilinogen (Negative) Ur Leukocyte Esterase (Negative) Urine RBC (0-4) /hpf Urine WBC (0-5) /hpf Ur Epithelial Cells (0-5) /lpf Urine Bacteria (Negative) Hyaline Casts (0-5) /lpf Urine Yeast (None Prsent) Ur Random Creatinine Ur Random Sodium Nasal Screen MRSA (PCR) HIV-1 RNA PCR copies/ml (<20) COPIES/mL HIV-1 RNA (PCR) log (<1.30) 10/14/18 10/14/18 10/14/18 Range/Units 12:06 10:54 09:34 WBC (4.8-10.8) K/uL RBC (4.2-5.4) M/uL Hgb (12.0-16.0) g/dL Hct (37-47) % MCV (80-100) fL MCH (25-34) pg MCHC (32-36) g/dL RDW Std Deviation (36.4-46.3) fL RDW Coeff of Clay (11.5-14.5) % Plt Count (130-400) K/uL MPV (7.4-10.4) fL PT (9.0-12.0) Seconds INR (0.9-1.1) Sample Site POC pH (7.35-7.45) POC pCO2 (35-46) mmHg POC pO2 (80-95) mmHg POC HCO3 (19-24) frank/L POC Total CO2 (24-31) mEq/l POC Base Excess (-9-1.8) frank/L POC ABG O2 Sat (90-95) % Kong Test O2 Delivery Device POC O2 Rate Minute Ventilation POC FiO2 % Tidal Volume PEEP Sodium (136-145) mmol/L Potassium (3.5-5.1) mmol/L Chloride (98-107) mmol/L Carbon Dioxide (21-32) mmol/L Anion Gap (3-11) BUN (7-18) mg/dl Creatinine (0.6-1.2) mg/dl Est Cr Clr Drug Dosing ml/min Est GFR ( Amer) Est GFR (Non-Af Amer) BUN/Creatinine Ratio (10-20) Glucose (70-99) mg/dl POC Glucose (other) 209 H 228 H 268 H (70-99) mg/dl Calcium (8.5-10.1) mg/dl Phosphorus (2.5-4.9) mg/dl PTH Intact (18.4-80.1) pg/ml Urine Color Urine Appearance (Clear) Urine pH (4.5-7.5) Ur Specific [place] (1.000-1.030) Urine Protein (Negative) Urine Glucose (UA) (Negative) Urine Ketones (Negative) Urine Blood (Negative) Urine Nitrite (Negative) Urine Bilirubin (Negative) Urine Urobilinogen (Negative) Ur Leukocyte Esterase (Negative) Urine RBC (0-4) /hpf Urine WBC (0-5) /hpf Ur Epithelial Cells (0-5) /lpf Urine Bacteria (Negative) Hyaline Casts (0-5) /lpf Urine Yeast (None Prsent) Ur Random Creatinine Ur Random Sodium Nasal Screen MRSA (PCR) HIV-1 RNA PCR copies/ml (<20) COPIES/mL HIV-1 RNA (PCR) log (<1.30) 10/14/18 10/14/18 10/14/18 Range/Units 07:56 05:59 04:22 WBC (4.8-10.8) K/uL RBC (4.2-5.4) M/uL Hgb (12.0-16.0) g/dL Hct (37-47) % MCV (80-100) fL MCH (25-34) pg MCHC (32-36) g/dL RDW Std Deviation (36.4-46.3) fL RDW Coeff of Clay (11.5-14.5) % Plt Count (130-400) K/uL MPV (7.4-10.4) fL PT (9.0-12.0) Seconds INR (0.9-1.1) Sample Site Art Line POC pH 7.39 (7.35-7.45) POC pCO2 38 (35-46) mmHg POC pO2 83 (80-95) mmHg POC HCO3 23 (19-24) frank/L POC Total CO2 24 (24-31) mEq/l POC Base Excess -2.0 (-9-1.8) frank/L POC ABG O2 Sat 96.0 H (90-95) % Kong Test NA O2 Delivery Device Ventilator POC O2 Rate 16 Minute Ventilation 8.0 POC FiO2 30 % Tidal Volume 500 PEEP 5 Sodium (136-145) mmol/L Potassium (3.5-5.1) mmol/L Chloride (98-107) mmol/L Carbon Dioxide (21-32) mmol/L Anion Gap (3-11) BUN (7-18) mg/dl Creatinine (0.6-1.2) mg/dl Est Cr Clr Drug Dosing ml/min Est GFR ( Amer) Est GFR (Non-Af Amer) BUN/Creatinine Ratio (10-20) Glucose (70-99) mg/dl POC Glucose (other) 274 H 246 H (70-99) mg/dl Calcium (8.5-10.1) mg/dl Phosphorus (2.5-4.9) mg/dl PTH Intact (18.4-80.1) pg/ml Urine Color Urine Appearance (Clear) Urine pH (4.5-7.5) Ur Specific [place] (1.000-1.030) Urine Protein (Negative) Urine Glucose (UA) (Negative) Urine Ketones (Negative) Urine Blood (Negative) Urine Nitrite (Negative) Urine Bilirubin (Negative) Urine Urobilinogen (Negative) Ur Leukocyte Esterase (Negative) Urine RBC (0-4) /hpf Urine WBC (0-5) /hpf Ur Epithelial Cells (0-5) /lpf Urine Bacteria (Negative) Hyaline Casts (0-5) /lpf Urine Yeast (None Prsent) Ur Random Creatinine Ur Random Sodium Nasal Screen MRSA (PCR) HIV-1 RNA PCR copies/ml (<20) COPIES/mL HIV-1 RNA (PCR) log (<1.30) 10/14/18 10/14/18 10/14/18 Range/Units 04:17 04:17 04:17 WBC 18.89 H (4.8-10.8) K/uL RBC 3.16 L (4.2-5.4) M/uL Hgb 8.5 L (12.0-16.0) g/dL Hct 24.6 L (37-47) % MCV 77.8 L (80-100) fL MCH 26.9 (25-34) pg MCHC 34.6 (32-36) g/dL RDW Std Deviation 46.9 H (36.4-46.3) fL RDW Coeff of Clay 16.5 H (11.5-14.5) % Plt Count 172 (130-400) K/uL MPV 11.2 H (7.4-10.4) fL PT (9.0-12.0) Seconds INR (0.9-1.1) Sample Site POC pH (7.35-7.45) POC pCO2 (35-46) mmHg POC pO2 (80-95) mmHg POC HCO3 (19-24) frank/L POC Total CO2 (24-31) mEq/l POC Base Excess (-9-1.8) frank/L POC ABG O2 Sat (90-95) % Kong Test O2 Delivery Device POC O2 Rate Minute Ventilation POC FiO2 % Tidal Volume PEEP Sodium 129 L (136-145) mmol/L Potassium 3.9 (3.5-5.1) mmol/L Chloride 97 L (98-107) mmol/L Carbon Dioxide 25 (21-32) mmol/L Anion Gap 7.0 (3-11) BUN 31 H (7-18) mg/dl Creatinine 3.49 H D (0.6-1.2) mg/dl Est Cr Clr Drug Dosing 23.0 ml/min Est GFR ( Amer) 18.5 Est GFR (Non-Af Amer) 16.0 BUN/Creatinine Ratio 8.8 L (10-20) Glucose 244 H (70-99) mg/dl POC Glucose (other) (70-99) mg/dl Calcium 7.3 L (8.5-10.1) mg/dl Phosphorus 6.8 H (2.5-4.9) mg/dl PTH Intact 36.4 (18.4-80.1) pg/ml Urine Color Urine Appearance (Clear) Urine pH (4.5-7.5) Ur Specific [place] (1.000-1.030) Urine Protein (Negative) Urine Glucose (UA) (Negative) Urine Ketones (Negative) Urine Blood (Negative) Urine Nitrite (Negative) Urine Bilirubin (Negative) Urine Urobilinogen (Negative) Ur Leukocyte Esterase (Negative) Urine RBC (0-4) /hpf Urine WBC (0-5) /hpf Ur Epithelial Cells (0-5) /lpf Urine Bacteria (Negative) Hyaline Casts (0-5) /lpf Urine Yeast (None Prsent) Ur Random Creatinine Ur Random Sodium Nasal Screen MRSA (PCR) HIV-1 RNA PCR copies/ml (<20) COPIES/mL HIV-1 RNA (PCR) log (<1.30) 10/14/18 10/13/18 10/12/18 Range/Units 00:18 19:55 04:15 WBC (4.8-10.8) K/uL RBC (4.2-5.4) M/uL Hgb (12.0-16.0) g/dL Hct (37-47) % MCV (80-100) fL MCH (25-34) pg MCHC (32-36) g/dL RDW Std Deviation (36.4-46.3) fL RDW Coeff of Clay (11.5-14.5) % Plt Count (130-400) K/uL MPV (7.4-10.4) fL PT (9.0-12.0) Seconds INR (0.9-1.1) Sample Site POC pH (7.35-7.45) POC pCO2 (35-46) mmHg POC pO2 (80-95) mmHg POC HCO3 (19-24) frank/L POC Total CO2 (24-31) mEq/l POC Base Excess (-9-1.8) frank/L POC ABG O2 Sat (90-95) % Kong Test O2 Delivery Device POC O2 Rate Minute Ventilation POC FiO2 % Tidal Volume PEEP Sodium (136-145) mmol/L Potassium (3.5-5.1) mmol/L Chloride (98-107) mmol/L Carbon Dioxide (21-32) mmol/L Anion Gap (3-11) BUN (7-18) mg/dl Creatinine (0.6-1.2) mg/dl Est Cr Clr Drug Dosing ml/min Est GFR ( Amer) Est GFR (Non-Af Amer) BUN/Creatinine Ratio (10-20) Glucose (70-99) mg/dl POC Glucose (other) 231 H 228 H 71 (70-99) mg/dl Calcium (8.5-10.1) mg/dl Phosphorus (2.5-4.9) mg/dl PTH Intact (18.4-80.1) pg/ml Urine Color Urine Appearance (Clear) Urine pH (4.5-7.5) Ur Specific [place] (1.000-1.030) Urine Protein (Negative) Urine Glucose (UA) (Negative) Urine Ketones (Negative) Urine Blood (Negative) Urine Nitrite (Negative) Urine Bilirubin (Negative) Urine Urobilinogen (Negative) Ur Leukocyte Esterase (Negative) Urine RBC (0-4) /hpf Urine WBC (0-5) /hpf Ur Epithelial Cells (0-5) /lpf Urine Bacteria (Negative) Hyaline Casts (0-5) /lpf Urine Yeast (None Prsent) Ur Random Creatinine Ur Random Sodium Nasal Screen MRSA (PCR) HIV-1 RNA PCR copies/ml (<20) COPIES/mL HIV-1 RNA (PCR) log (<1.30) 10/07/18 Range/Units 22:50 WBC (4.8-10.8) K/uL RBC (4.2-5.4) M/uL Hgb (12.0-16.0) g/dL Hct (37-47) % MCV (80-100) fL MCH (25-34) pg MCHC (32-36) g/dL RDW Std Deviation (36.4-46.3) fL RDW Coeff of Clay (11.5-14.5) % Plt Count (130-400) K/uL MPV (7.4-10.4) fL PT (9.0-12.0) Seconds INR (0.9-1.1) Sample Site POC pH (7.35-7.45) POC pCO2 (35-46) mmHg POC pO2 (80-95) mmHg POC HCO3 (19-24) frank/L POC Total CO2 (24-31) mEq/l POC Base Excess (-9-1.8) frank/L POC ABG O2 Sat (90-95) % Kong Test O2 Delivery Device POC O2 Rate Minute Ventilation POC FiO2 % Tidal Volume PEEP Sodium (136-145) mmol/L Potassium (3.5-5.1) mmol/L Chloride (98-107) mmol/L Carbon Dioxide (21-32) mmol/L Anion Gap (3-11) BUN (7-18) mg/dl Creatinine (0.6-1.2) mg/dl Est Cr Clr Drug Dosing ml/min Est GFR ( Amer) Est GFR (Non-Af Amer) BUN/Creatinine Ratio (10-20) Glucose (70-99) mg/dl POC Glucose (other) (70-99) mg/dl Calcium (8.5-10.1) mg/dl Phosphorus (2.5-4.9) mg/dl PTH Intact (18.4-80.1) pg/ml Urine Color Urine Appearance (Clear) Urine pH (4.5-7.5) Ur Specific [place] (1.000-1.030) Urine Protein (Negative) Urine Glucose (UA) (Negative) Urine Ketones (Negative) Urine Blood (Negative) Urine Nitrite (Negative) Urine Bilirubin (Negative) Urine Urobilinogen (Negative) Ur Leukocyte Esterase (Negative) Urine RBC (0-4) /hpf Urine WBC (0-5) /hpf Ur Epithelial Cells (0-5) /lpf Urine Bacteria (Negative) Hyaline Casts (0-5) /lpf Urine Yeast (None Prsent) Ur Random Creatinine Ur Random Sodium Nasal Screen MRSA (PCR) HIV-1 RNA PCR copies/ml <20 NOT DETECTED (<20) COPIES/mL HIV-1 RNA (PCR) log <1.30 NOT DETECTED (<1.30) Medications Administered Current Inpatient Medications Acetaminophen (Tylenol) 650 mg PO Q4H PRN PRN Reason: Pain or Fever Stop: 11/06/18 14:59 Acetaminophen (Ofirmev) 1,000 mg IV Q8H PRN PRN Reason: Fever Stop: 11/06/18 22:51 Last Admin: 10/12/18 00:18 Dose: 1,000 mg Dextrose (Dextrose 50%) 25 - 50 ml IV UD PRN; Protocol PRN Reason: Hypoglycemia Protocol Stop: 11/06/18 21:31 Last Admin: 10/08/18 21:11 Dose: 25 ml Ergocalciferol (Vitamin D2) 50,000 units PO Q7D CANDIDO Stop: 11/09/18 08:59 Last Admin: 10/10/18 08:34 Dose: 50,000 units Fentanyl Citrate (Fentanyl Citrate) 25 mcg IV ONE PRN PRN Reason: Pain Not Controlled by Drip Stop: 10/25/18 03:46 Fentanyl Citrate (Fentanyl Citrate) 25 mcg IV Q1H PRN PRN Reason: Moderate Pain (4,5,6) Stop: 10/25/18 03:47 Last Admin: 10/11/18 06:35 Dose: 25 mcg Glucagon (Glucagen) 1 mg IM UD PRN; Protocol PRN Reason: Hypoglycemia Protocol Stop: 11/06/18 21:31 Glucose (Glucose 40%) 15 - 30 gm PO UD PRN; Protocol PRN Reason: Hypoglycemia Protocol Stop: 11/06/18 21:31 Glucose (Dex4 Glucose) 4 - 8 tabs PO UD PRN; Protocol PRN Reason: Hypoglycemia Protocol Stop: 11/06/18 21:31 Heparin Sodium (Porcine) (Heparin Sodium (Porcine)) 5,000 units SQ Q8 CANDIDO Stop: 11/13/18 13:59 Last Admin: 10/14/18 13:32 Dose: 5,000 units Hydromorphone HCl (Dilaudid) 1 mg IV Q4H CANDIDO Stop: 10/27/18 11:59 Last Admin: 10/14/18 15:44 Dose: 1 mg Hydromorphone HCl (Dilaudid) 1 mg IV Q4H PRN PRN Reason: Pain Stop: 10/27/18 11:33 Pantoprazole Sodium 40 mg/ (Syringe) 10 mls @ 5 mls/min IV BID CANDIDO Stop: 11/06/18 20:59 Last Admin: 10/14/18 08:00 Dose: 5 mls/min Norepinephrine Bitartrate 8 mg (/ Dextrose) 508 mls @ 7.93 mls/hr IV .Q24H CANDIDO ; Protocol Stop: 11/10/18 06:19 Last Titration: 10/14/18 11:00 Dose: 0.03 mcg/kg/min, 7.9 mls/hr Ceftaroline Fosamil 200 mg/ (Sodium Chloride) 256.6667 mls @ 270 mls/hr IV Q12H CANDIDO; Protocol Stop: 10/25/18 13:59 Last Infusion: 10/14/18 05:07 Dose: Infused Rifampin 600 mg/ Dextrose 510 mls @ 167 mls/hr IV DAILY@1700 CANDIDO Stop: 11/24/18 16:59 Last Infusion: 10/13/18 22:04 Dose: Infused Propofol (Diprivan) 1,000 mg in 100 mls @ 19.536 mls/hr IV .[id number] PRN; Protocol PRN Reason: TITRATE Stop: 10/16/18 22:06 Last Admin: 10/14/18 13:32 Dose: 40 mcg/kg/min, 19.5 mls/hr Insulin Human Regular 250 (units/ Sodium Chloride) 250 mls @ 2 mls/hr IV .Q24H CANDIDO; Protocol Stop: 11/13/18 08:59 Last Titration: 10/14/18 14:30 Dose: 2 units/hr, 2 mls/hr Insulin Aspart (Novolog Flexpen) 0 units SC Q4 CANDIDO; Protocol Stop: 11/13/18 11:59 Insulin Glargine (Lantus Solostar Pen) 12 units SC Q12H CANDIDO; Protocol Stop: 11/13/18 07:59 Last Admin: 10/14/18 07:59 Dose: 12 units Ioversol (Optiray 320 125ml) 94 ml IV ONCE PRN PRN Reason: Interaction Checking Stop: 10/18/18 13:59 Last Admin: 10/14/18 14:02 Dose: 94 ml Lactulose (Chronulac) 30 gm PO Q8H PRN PRN Reason: Constipation Stop: 11/11/18 09:32 Last Admin: 10/13/18 08:57 Dose: 30 gm Miscellaneous (Carbohydrates For Hypoglycemia) 15 - 30 gm PO UD PRN PRN Reason: Hypoglycemia Treatment Stop: 11/06/18 21:31 Miscellaneous Information (Consult Glycemic Management Pharmacy) 1 ea N/A UD PRN PRN Reason: Consult Stop: 11/06/18 21:38 Miscellaneous Information () 1 ea N/A UD PRN PRN Reason: Consult Stop: 11/09/18 11:14 Nutritional Formula (Peptamen Intense Vhp) 1,000 ml OG UD [facility]; Protocol Stop: 11/13/18 08:29 Nystatin (Mycostatin) 5 ml PO QID CANDIDO Stop: 10/19/18 12:59 Last Admin: 10/14/18 12:23 Dose: 5 ml Ondansetron HCl (Zofran) 4 mg IV Q6H PRN PRN Reason: Nausea Stop: 11/06/18 14:59 Oxycodone HCl (Roxicodone) 10 mg PO Q6H C[facility]IDO Stop: 10/28/18 15:59 Last Admin: 10/14/18 15:44 Dose: 10 mg Polyethylene Glycol (Miralax Powder Packet) 17 gm PO DAILY PRN PRN Reason: Constipation Stop: 11/06/18 14:59 Vitamin D (Vitamin D3) 2,000 units PO QAM [facility] Stop: 11/09/18 08:59 Last Admin: 10/14/18 09:56 Dose: Not Given Resident Activity Tracking Resident Involvement: Resident Care Provided Care Provided: Adult [facility] Medicine _ (1) Type 1 diabetes Chronic kidney disease stage: Diabetes mellitus complication detail: Diabetes mellitus complication status: with hyperglycemia Diabetes mellitus macular edema: Diabetic retinopathy severity: Laterality: Proliferative retinopathy type: Qualified Code(s): E10.65 - Type 1 diabetes mellitus with hyperglycemia (2) Aspiration into airway Encounter type: initial encounter Qualified Code(s): T17.908A - Unspecified foreign body in respiratory tract, part unspecified causing other injury, initial encounter
[2018-10-14 17:53] LABS: Appearance Urine Cloudy (Clear); Color Urine Amber; Glucose Urine UA Negative (Negative); Ketones Urine Trace (Negative); Leukocyte Esterase Urine Trace (Negative); Nitrite Urine Positive (Negative); Protein Urine 1+ (Negative); Specific Gravity Urine 1.025 (1.000-1.030); Urobilinogen Urine Negative (Negative)
[2018-10-14 17:56] LABS: Bilirubin Urine Negative (Negative); Ictotest Urine Negative (Negative)
[2018-10-14 17:58] LABS: Bacteria Urine 2+ (Negative)
[2018-10-14 17:59] LABS: RBC Urine 0-4 /hpf (0-4)
[2018-10-14 18:01] LABS: Hyaline Casts Urine 0-5 /lpf (0-5)
[2018-10-14] MEDS: PEPTAMEN INTENSE VHP 1.0 CAL 1,000 ML BAG OG SCH (18:22)
[2018-10-14] MEDS: rifAMPin 600 MG in DEXTROSE 5% 500 ML IV SCH (19:41)
--- NOTE | 2018-10-14 22:54 | Ultrasound Report ---
US venous doppler LE BI HISTORY: Pain. Edema. r/o DVT COMPARISON STUDY: None. FINDINGS: There is normal compressibility, flow, and augmentation within the bilateral lower extremit y deep venous systems. IMPRESSION: No DVT within the right or left lower extremity. The above report was generated using voice recognition software. It may contain grammatical, syntax or spelling errors. Electronically signed by: Franco Zuniga M.D. 10/14/2018 10:53 PM
[2018-10-15] MEDS: HYDROmorphone INJ 1 MG/ML SYRINGE IV SCH ×4 (00:21→12:41)
[2018-10-15] MEDS: CEFTAROLINE FOSAMIL ACETATE 200 MG in SODIUM CHLORIDE 0.9% 250 ML IV SCH ×2 (00:22→14:25)
[2018-10-15] MEDS: NOREPINEPHRINE BIT INJ 8 MG in DEXTROSE 5% 500 ML IV SCH ×2 (02:09→12:14)
[2018-10-15] MEDS: OXYCODONE HCL SOLN 5 MG/5 ML UDC PO SCH ×4 (04:02→21:02)
[2018-10-15] MEDS: HEPARIN SOD 5,000 UNIT/0.5 ML VIAL SQ SCH ×3 (05:00→21:04)
[2018-10-15 05:17] LABS: Basophils # (auto) 0.02 K/uL (0-0.2); Basophils % (auto) 0.1 %; Eosinophils # (auto) 0.11 K/uL (0-0.5); Eosinophils % (auto) 0.5 %; Hematocrit (blood only) 25.2 % (37-47); Hemoglobin 8.8 g/dL (12.0-16.0); Immature Granulocytes # (auto) 0.21 K/uL (0.00-0.02); Lymphocytes # (auto) 2.72 K/uL (1.2-3.4); Lymphocytes % (auto) 12.6 %; Mean Corpuscular Hgb Conc 34.9 g/dL (32-36); Mean Corpuscular Volume 76.8 fL (80-100); Mean Platelet Volume 10.5 fL (7.4-10.4); Monocytes # (auto) 1.02 K/uL (0.11-0.59); Monocytes % (auto) 4.7 %; Neutrophils # (auto) 17.45 K/uL (1.4-6.5); Neutrophils % (auto) 81.1 %; Platelet Count 245 K/uL (130-400); RDW Coefficient of Variation 16.2 % (11.5-14.5); RDW Standard Deviation 45.6 fL (36.4-46.3); Red Blood Count 3.28 M/uL (4.2-5.4); White Blood Count 21.53 K/uL (4.8-10.8)
[2018-10-15 05:42] LABS: BUN Creatinine Ratio 8.5 (10-20); Calcium 7.2 mg/dl (8.5-10.1); Creatinine Clr Calc Pharmacy 31.4 ml/min; Est GFR (African American) 26.9; Est GFR (Non-African American) 23.2; Phosphorus 6.8 mg/dl (2.5-4.9); Potassium 4.2 mmol/L (3.5-5.1)
[2018-10-15 06:09] LABS: Rouleaux 1+
[2018-10-15] MEDS: PROPOFOL 1,000 MG/100 ML VIAL IV PRN ×4 (06:30→19:34)
--- NOTE | 2018-10-15 11:21 | Nephrology Progress Note ---
Date of Service October 15, 2018 Assessment & Plan (1) Acute kidney injury: 37 year old white female w/ IDDM & h/o IVDA presents with DKA, MRSA sepsis, endocarditis and KAREN. KAREN is likely multifactoral including dehydration at time of admission, sepsis and recent Vancomycin administration. Patient is now oliguric w/ volume overload requiring mechanical ventilation. She requires pressor support and has multiple electrolyte abnomalities. -- plan for dialysis today for 4 hours as patient remained anuric, rise in creatinine off dialysis and volume overloaded, UF as tolerated, aim for 3 L, so far she has been tolerating ultrafiltration. --request vascular sx to place TDC and remove temporary line. -- Monitor PRP Will follow Subjective Princess was seen and examined this morning. She is intubated but awake and alert . Remained anuric , hypotensive requiring pressor support. Significantly volume overloaded with generalized edema. No clear sign of renal recovery. Physical Exam 2 Vital Signs (Past 24 Hours): Last Vital Signs Temp 36.7 C 10/15/18 10:00 Pulse 96 H 10/15/18 11:15 Resp 19 10/15/18 10:20 BP 95/56 L 10/15/18 11:15 Pulse Ox 97 10/15/18 10:20 Constitutional: + ill appearing Respiratory: Auscultation: + crackles Cardiovascular: RRR, no murmur, no edema (Generalized edema) Extremities: + edema Gastrointestinal (Abdomen): Inspection/Auscultation: normal bowel sounds Neurologic: moves all extremities and awake Psychiatric: Orientation: alert and oriented x 3 Insight: good insight Judgement: good judgement
[2018-10-15] MEDS ORDERED: fentaNYL citrate 100 MCG/2 ML VIAL IV STA ×2 (11:23→11:28)
[2018-10-15] MEDS ORDERED: MIDAZOLAM HCL 5 MG/ML 1 ML VIAL ONE (11:28)
[2018-10-15] MEDS ORDERED: VECURONIUM BROMIDE 10 MG VIAL ONE (11:28)
[2018-10-15] MEDS ORDERED: VECURONIUM BROMIDE 10 MG VIAL IV STA (11:28)
[2018-10-15] MEDS ORDERED: MIDAZOLAM HCL 1 MG/ML 2ML VIAL IV ONE (11:29)
--- NOTE | 2018-10-15 11:30 | Pre Anesthesia Assessment ---
Date of Service October 15, 2018 Pre Sedation Assessment Vital Signs Temp Pulse Pulse Resp BP BP BP 10/15/18 11:15 96 H 95/56 L 10/15/18 11:00 88 91/51 L 10/15/18 10:45 96 H 96/56 L 10/15/18 10:30 97 H 93/53 L 10/15/18 10:20 97 H 19 10/15/18 10:15 97 H 98/55 L 10/15/18 10:00 36.7 C 96 H 99/53 L 10/15/18 09:45 96 H 96/55 L 10/15/18 09:30 97 H 91/54 L 10/15/18 09:15 97 H 107/58 L 10/15/18 09:05 36.9 C 97 H 10/15/18 09:00 96 H 130/69 10/15/18 08:01 36.9 C 103 H 133/65 10/15/18 08:00 98 H 10/15/18 07:25 99 H 18 10/15/18 07:00 100 H 117/57 L 10/15/18 06:00 37 C 99 H 16 99/47 L 10/15/18 05:45 96 H 18 10/15/18 04:00 37.1 C 102 H 20 98/56 L 10/15/18 03:05 96 H 16 10/15/18 03:00 101 H 22 99/51 L 10/15/18 02:00 36.8 C 93 H 18 93/53 L 10/15/18 01:00 94 H 18 98/50 L 10/15/18 00:00 37 C 95 H 17 98/54 L 10/14/18 23:28 92 H 17 10/14/18 23:00 36.8 C 92 H 16 110/66 10/14/18 22:00 36.6 C 84 16 102/59 L 10/14/18 21:00 36.9 C 83 18 113/78 10/14/18 20:45 83 16 10/14/18 20:00 36.7 C 86 18 117/60 10/14/18 19:00 36.7 C 85 18 104/83 113/59 L 10/14/18 18:50 36.6 C 87 87 117/96 117/96 10/14/18 18:45 83 135/88 10/14/18 18:30 83 148/96 H 10/14/18 18:15 80 131/96 10/14/18 18:00 79 130/89 10/14/18 17:45 79 16 130/89 10/14/18 17:34 83 16 10/14/18 17:31 79 141/93 H 10/14/18 17:30 79 163/90 H 10/14/18 17:16 79 163/90 H 10/14/18 17:15 78 121/69 10/14/18 17:00 81 127/83 10/14/18 16:46 81 146/85 H 10/14/18 16:45 81 146/85 H 10/14/18 16:30 82 126/84 10/14/18 16:16 81 147/95 H 10/14/18 16:15 82 147/95 H 10/14/18 16:00 36.7 C 83 124/88 10/14/18 15:46 86 146/94 H 10/14/18 15:45 85 146/94 H 10/14/18 15:31 86 137/108 H 10/14/18 15:30 86 137/108 H 10/14/18 15:16 87 146/104 H 10/14/18 15:15 87 146/104 H 10/14/18 15:01 91 H 142/90 H 10/14/18 15:00 88 142/90 H 10/14/18 14:47 36.7 C 85 85 128/101 H 10/14/18 14:36 90 128/101 H 10/14/18 14:32 91 H 24 10/14/18 14:21 93 H 133/112 H 10/14/18 13:00 88 117/66 10/14/18 12:00 89 119/69 10/14/18 11:34 91 H 17 BP Pulse Ox 10/15/18 11:15 10/15/18 11:00 10/15/18 10:45 10/15/18 10:30 10/15/18 10:20 97 10/15/18 10:15 10/15/18 10:00 97 10/15/18 09:45 10/15/18 09:30 10/15/18 09:15 10/15/18 09:05 10/15/18 09:00 96 10/15/18 08:01 96 10/15/18 08:00 10/15/18 07:25 96 10/15/18 07:00 96 10/15/18 06:00 109/66 96 10/15/18 05:45 100 10/15/18 04:00 108/52 L 95 10/15/18 03:05 96 10/15/18 03:00 96 10/15/18 02:00 101/51 L 96 10/15/18 01:00 96 10/15/18 00:00 106/57 L 96 10/14/18 23:28 97 10/14/18 23:00 96 10/14/18 22:00 119/70 98 10/14/18 21:00 98 10/14/18 20:45 99 10/14/18 20:00 119/79 99 10/14/18 19:00 104/83 99 10/14/18 18:50 10/14/18 18:45 10/14/18 18:30 10/14/18 18:15 10/14/18 18:00 10/14/18 17:45 100 10/14/18 17:34 99 10/14/18 17:31 100 10/14/18 17:30 10/14/18 17:16 100 10/14/18 17:15 10/14/18 17:00 99 10/14/18 16:46 98 10/14/18 16:45 10/14/18 16:30 99 10/14/18 16:16 98 10/14/18 16:15 10/14/18 16:00 99 10/14/18 15:46 99 10/14/18 15:45 10/14/18 15:31 99 10/14/18 15:30 10/14/18 15:16 100 10/14/18 15:15 10/14/18 15:01 98 10/14/18 15:00 10/14/18 14:47 10/14/18 14:36 97 10/14/18 14:32 95 10/14/18 14:21 97 10/14/18 13:00 97 10/14/18 12:00 97 10/14/18 11:34 97 Pre-Sedation Airway Assessment Smoking Status: Current every day smoker Notes The planned sedation has been discussed with the patient. Informed Consent was obtained. I have identified the patient, determined the appropriateness of sedation and have assessed the patient immediately prior to the procedure. All medicine(s) and interventions are by my order. General: Alert. nontoxic. Skin: Warm, dry, Head: Atraumatic Ears, nose, mouth and throat: Airway secured by endotracheal tube Cardiovascular: Normal peripheral perfusion Respiratory: Scattered rhonchi bilateral Gastrointestinal: Non distended Musculoskeletal: No deformity Plan sedation to include IV boluses of fentanyl, continuous propofol, possible IV boluses of Versed with possible neuromuscular blockade. Airway is secured via endotracheal tube patient has adequate IV access via triple-lumen central venous catheter. His invasive Tj monitored with arterial line. Able to undergo sedation for transesophageal echocardiography.
--- NOTE | 2018-10-15 11:32 | Post Anesthesia Assessment ---
Date of Service October 15, 2018 Start time 1115 End time 12:00 Total procedural sedation time: 45 minutes Post Sedation Assessment Vital Signs Temp Pulse Pulse Resp BP BP BP 10/16/18 18:36 36.8 C 110 H 126/72 10/16/18 18:15 118 H 115/60 10/16/18 18:00 105 H 133/68 10/16/18 17:45 108 H 111/65 10/16/18 17:30 109 H 131/76 10/16/18 17:15 110 H 119/67 10/16/18 17:00 112 H 120/74 10/16/18 16:45 113 H 127/73 10/16/18 16:30 114 H 104/74 10/16/18 16:16 110 H 117/72 10/16/18 16:15 112 H 117/66 10/16/18 16:00 103 H 130/69 10/16/18 15:46 103 H 129/74 10/16/18 15:45 109 H 131/69 10/16/18 15:31 105 H 128/71 10/16/18 15:30 99 H 126/67 10/16/18 15:15 107 H 134/75 10/16/18 15:01 102 H 115/73 10/16/18 15:00 102 H 122/64 10/16/18 14:46 110 H 125/80 10/16/18 14:45 106 H 136/60 10/16/18 14:30 110 H 130/74 10/16/18 14:17 109 H 10/16/18 14:16 108 H 104/74 10/16/18 14:15 108 H 117/68 10/16/18 14:07 107 H 129/70 10/16/18 14:04 107 H 128/66 10/16/18 14:01 114 H 125/64 10/16/18 14:00 111 H 10/16/18 13:50 36.7 C 113 H 10/16/18 13:46 111 H 82/61 L 10/16/18 13:30 111 H 97/70 L 10/16/18 13:16 109 H 120/69 10/16/18 13:01 108 H 128/73 10/16/18 13:00 110 H 10/16/18 12:45 105 H 129/77 10/16/18 12:31 111 H 19 116/68 10/16/18 12:17 105 H 26 H 10/16/18 12:16 104 H 30 H 122/74 10/16/18 12:01 104 H 25 H 119/71 10/16/18 12:00 102 H 25 H 10/16/18 11:46 112 H 24 126/72 10/16/18 11:30 112 H 23 122/73 10/16/18 11:15 111 H 23 121/73 10/16/18 11:00 105 H 25 H 128/70 10/16/18 10:45 107 H 23 124/73 10/16/18 10:31 105 H 27 H 126/72 10/16/18 10:15 107 H 28 H 135/78 10/16/18 10:01 109 H 113/74 10/16/18 10:00 107 H 10/16/18 09:45 107 H 112/65 10/16/18 09:31 105 H 110/65 10/16/18 09:15 101 H 28 H 129/73 10/16/18 09:02 96 H 28 H 10/16/18 09:01 97 H 15 118/78 10/16/18 09:00 97 H 16 10/16/18 08:46 111 H 23 136/79 10/16/18 08:31 112 H 29 H 132/80 10/16/18 08:16 36.6 C 110 H 24 190/122 H 10/16/18 08:00 117 H 32 H 146/75 H 10/16/18 07:45 115 H 20 131/81 10/16/18 07:31 117 H 27 H 141/76 H 10/16/18 07:20 118 H 30 H 157/95 H 10/16/18 07:00 112 H 10/16/18 06:00 99 H 18 118/63 10/16/18 05:00 102 H 18 134/70 10/16/18 04:00 36.6 C 101 H 22 10/16/18 03:00 37 C 105 H 22 115/64 10/16/18 02:00 105 H 20 10/16/18 01:00 36.6 C 100 H 104 H 19 106/62 10/16/18 00:00 36.7 C 101 H 103 H 20 121/65 110/75 10/15/18 23:00 37 C 90 18 137/91 10/15/18 22:00 36.8 C 81 18 127/68 126/71 10/15/18 21:00 37 C 89 108/62 118/65 10/15/18 20:54 87 18 Pulse Ox 10/16/18 18:36 10/16/18 18:15 95 10/16/18 18:00 94 10/16/18 17:45 96 10/16/18 17:30 94 10/16/18 17:15 95 10/16/18 17:00 94 10/16/18 16:45 94 10/16/18 16:30 94 10/16/18 16:16 96 10/16/18 16:15 10/16/18 16:00 96 10/16/18 15:46 97 10/16/18 15:45 10/16/18 15:31 97 10/16/18 15:30 10/16/18 15:15 97 10/16/18 15:01 97 10/16/18 15:00 97 10/16/18 14:46 10/16/18 14:45 10/16/18 14:30 10/16/18 14:17 10/16/18 14:16 10/16/18 14:15 10/16/18 14:07 10/16/18 14:04 10/16/18 14:01 10/16/18 14:00 10/16/18 13:50 10/16/18 13:46 10/16/18 13:30 97 10/16/18 13:16 96 10/16/18 13:01 98 10/16/18 13:00 96 10/16/18 12:45 100 10/16/18 12:31 98 10/16/18 12:17 100 10/16/18 12:16 100 10/16/18 12:01 91 10/16/18 12:00 96 10/16/18 11:46 96 10/16/18 11:30 98 10/16/18 11:15 99 10/16/18 11:00 99 10/16/18 10:45 97 10/16/18 10:31 99 10/16/18 10:15 98 10/16/18 10:01 97 10/16/18 10:00 97 10/16/18 09:45 97 10/16/18 09:31 99 10/16/18 09:15 97 10/16/18 09:02 100 10/16/18 09:01 100 10/16/18 09:00 99 10/16/18 08:46 99 10/16/18 08:31 99 10/16/18 08:16 97 10/16/18 08:00 97 10/16/18 07:45 98 10/16/18 07:31 98 10/16/18 07:20 98 10/16/18 07:00 97 10/16/18 06:00 97 10/16/18 05:00 94 10/16/18 04:00 98 10/16/18 03:00 97 10/16/18 02:00 97 10/16/18 01:00 97 10/16/18 00:00 97 10/15/18 23:00 97 10/15/18 22:00 99 10/15/18 21:00 98 10/15/18 20:54 98 Post Sedation Plan On clinical assessment, the patient appears to have tolerated the sedation without complications. Patient is recovering as anticipated. Patient remains in the ICU at a higher level of care. Medications were given under my direct instruction. I gave Gave bolus of 50 mg of propofol Increase propofol to 7 300 mcg in total via 100 mcg boluses fentanyl IV Versed 5mg IV 10 mg Vecuronium Patient returned to baseline mental status and baseline hemodynamics
--- NOTE | 2018-10-15 11:40 | Family Medicine Progress Note ---
Date of Service October 15, 2018 Assessment & Plan (1) MRSA (methicillin resistant Staphylococcus aureus) septicemia: Princess is a 37-year-old female with a past medical history of IV drug abuse and type 1 diabetes who presented with polyuria and extremity pain and who was admitted for DKA and whose hospital stay has been complicated by MRSA septicemia with tricuspid vegetation on echo. She developed acute renal failure and required dialysis today. She required pressor support and intubation and was transferred for ICU care. MRSA septicemia �Blood cultures positive for MRSA �Borderline sensitivity to vancomycin with CHELSEA = 2 �ID consulted, based on her development of acute kidney failure and borderline sensitivity to vancomycin recommended switch to ceftaroline + rifampin. Daptomycin not a good choice due to poor lung activity. �Ceftaroline 200 mg twice daily plus rifampin 600 mg daily. �Repeat BC+ for GPC. Repeat cultures pending. See below for management. �Echo shows tricuspid valve endocarditis �Septic emboli to lungs, shoulder, and rest �Currently on norepinephrine pressor support Tricuspid valve endocarditis �MRSA septicemia as above �Treatment with ceftaroline + rifampin as above - TV vegetation could continue to seed BC+ for an extended period of time, but repeat echo scheduled to look for progression/secondary vegetation. If worsenening she will require transfer to a tertiary facility for intervention. Given her renal status, poor vanc CHELSEA, and MRSA infection abx options are limited. �Will require prolonged IV antibiotic treatment and IV drug abuse rehab Acute hypoxic respiratory failure �In the setting of multiple septic emboli �Currently intubated, sedated with propofol �On propofol wean, may consider trial of extubation soon if doing well. (FiO2 = 30, PEEP 5cmH20, ABG improved, norepi drip currently at .04mcg/kg/min. Vitals hypotensive, slightly tachycardic during dialysis today). Acute renal failure �Multifactorial. Contributing elements include DKA, prerenal, sepsis, and vancomycin �Nephrology following �1L diasylate removed yesterday. On dialysis at time of exam, 1.3L removed with target removal of ~3L if vitals tolerate. �Creatinine 2.56 from 3.49 today. Peak of 4.96 on 10/11/18 Bacteruria - UA Positive for bacteria and nitrites. - UC pending DKA (resolved) �Blood sugar 1220 on admission �Treated with DKA protocol on admit �AM Glucose 216 today �Insulin GTT Multifocal pain �Multiple septic emboli �Sedated with propofol 40 mcg/kg/min �25 mcg fentanyl per hour drip stopped, oxycodone added as below � Oxycodone 10mg PO Q6H �1 mg hydromorphone every 4 hour CANDIDO + PRN IV drug abuse �History of injecting Suboxone �Will require counseling and possible rehab on discharge DVT: On heparin 5,000U Q8H (2) Infective endocarditis: (3) Acute kidney failure: (4) Type 1 diabetes: (5) Right shoulder pain: (6) Wrist pain, left: (7) Aspiration into airway: (8) Hyperglycemia: (9) Hyponatremia: Supervising Physician Co-Signing Physician Notes Resident Physician Supervision Note: I independently interviewed and examined the patient and verified the cotton history and physical, reviewed labs and image studies, discussed the case with the resident Dr. Hayes and agree with the findings and care plan. Subjective Physical exam is limited by sedation and endotracheal intubation. She slowly answers some questions consistently with head nod and using pen and paper. Indicates that her pain is unchanged today. She feels her breathing is unchanged from yesterday, endorses a feeling of shortness of breath. Review of Systems Unobtainable due to endotracheal tube Physical Exam 2 Vital Signs (Past 24 Hours): Last Vital Signs Temp 37 C 10/15/18 06:00 Pulse 99 H 10/15/18 06:00 Resp 16 10/15/18 06:00 BP 109/66 10/15/18 06:00 Pulse Ox 96 10/15/18 06:00 Physical Exam: General: Sedated, endotracheally intubated. Communicates using head gestures supplemented with paper and pen. HEENT: Atraumatic, normocephalic. Membranes moist. Pulm: ET tube in place, breathing appears unlabored, bibasilar crackles appreciated. Coarse breath sounds radiating to vent on inspiration. Good air movement with symmetrical chest rise. Cardiac: RRR, -mrg. Radial pulses intact and symmetrical. Abdominal: Nontender, nondistended Extremity: Bilateral lower leg edema present, mildly improved from yesterday. Results & Data Laboratory Results 10/15/18 10/15/18 10/15/18 Range/Units 10:35 10:17 09:15 WBC (4.8-10.8) K/uL RBC (4.2-5.4) M/uL Hgb (12.0-16.0) g/dL Hct (37-47) % MCV (80-100) fL MCH (25-34) pg MCHC (32-36) g/dL RDW Std Deviation (36.4-46.3) fL RDW Coeff of Clay (11.5-14.5) % Plt Count (130-400) K/uL MPV (7.4-10.4) fL Immature Gran % (Auto) % Neut % (Auto) % Lymph % (Auto) % [place] % (Auto) % Eos % (Auto) % Baso % (Auto) % Immature Gran # (Auto) (0.00-0.02) K/uL Neut # (Auto) (1.4-6.5) K/uL Lymph # (Auto) (1.2-3.4) K/uL [place] # (Auto) (0.11-0.59) K/uL Eos # (Auto) (0-0.5) K/uL Baso # (Auto) (0-0.2) K/uL Rouleaux PT (9.0-12.0) Seconds INR (0.9-1.1) Sodium (136-145) mmol/L Potassium (3.5-5.1) mmol/L Chloride (98-107) mmol/L Carbon Dioxide (21-32) mmol/L Anion Gap (3-11) BUN (7-18) mg/dl Creatinine (0.6-1.2) mg/dl Est Cr Clr Drug Dosing ml/min Est GFR ( Amer) Est GFR (Non-Af Amer) BUN/Creatinine Ratio (10-20) Glucose (70-99) mg/dl POC Glucose (other) 106 H 109 H 188 H (70-99) mg/dl Calcium (8.5-10.1) mg/dl Phosphorus (2.5-4.9) mg/dl Magnesium (1.8-2.4) mg/dl Urine Color Urine Appearance (Clear) Urine pH (4.5-7.5) Ur Specific [place] (1.000-1.030) Urine Protein (Negative) Urine Glucose (UA) (Negative) Urine Ketones (Negative) Urine Blood (Negative) Urine Nitrite (Negative) Urine Bilirubin (Negative) Urine Urobilinogen (Negative) Ur Leukocyte Esterase (Negative) Urine RBC (0-4) /hpf Urine WBC (0-5) /hpf Ur Epithelial Cells (0-5) /lpf Urine Bacteria (Negative) Hyaline Casts (0-5) /lpf Urine Yeast (None Prsent) Ur Random Creatinine mg/dl Ur Random Sodium mmol/L Nasal Screen MRSA (PCR) (Negative) 10/15/18 10/15/18 10/15/18 Range/Units 08:15 07:20 05:00 WBC 21.53 H (4.8-10.8) K/uL RBC 3.28 L (4.2-5.4) M/uL Hgb 8.8 L (12.0-16.0) g/dL Hct 25.2 L (37-47) % MCV 76.8 L (80-100) fL MCH 26.8 (25-34) pg MCHC 34.9 (32-36) g/dL RDW Std Deviation 45.6 (36.4-46.3) fL RDW Coeff of Clay 16.2 H (11.5-14.5) % Plt Count 245 (130-400) K/uL MPV 10.5 H (7.4-10.4) fL Immature Gran % (Auto) 1.0 % Neut % (Auto) 81.1 % Lymph % (Auto) 12.6 % [place] % (Auto) 4.7 % Eos % (Auto) 0.5 % Baso % (Auto) 0.1 % Immature Gran # (Auto) 0.21 H (0.00-0.02) K/uL Neut # (Auto) 17.45 H (1.4-6.5) K/uL Lymph # (Auto) 2.72 (1.2-3.4) K/uL [place] # (Auto) 1.02 H (0.11-0.59) K/uL Eos # (Auto) 0.11 (0-0.5) K/uL Baso # (Auto) 0.02 (0-0.2) K/uL Rouleaux 1+ PT (9.0-12.0) Seconds INR (0.9-1.1) Sodium (136-145) mmol/L Potassium (3.5-5.1) mmol/L Chloride (98-107) mmol/L Carbon Dioxide (21-32) mmol/L Anion Gap (3-11) BUN (7-18) mg/dl Creatinine (0.6-1.2) mg/dl Est Cr Clr Drug Dosing ml/min Est GFR ( Amer) Est GFR (Non-Af Amer) BUN/Creatinine Ratio (10-20) Glucose (70-99) mg/dl POC Glucose (other) 200 H 209 H (70-99) mg/dl Calcium (8.5-10.1) mg/dl Phosphorus (2.5-4.9) mg/dl Magnesium (1.8-2.4) mg/dl Urine Color Urine Appearance (Clear) Urine pH (4.5-7.5) Ur Specific [place] (1.000-1.030) Urine Protein (Negative) Urine Glucose (UA) (Negative) Urine Ketones (Negative) Urine Blood (Negative) Urine Nitrite (Negative) Urine Bilirubin (Negative) Urine Urobilinogen (Negative) Ur Leukocyte Esterase (Negative) Urine RBC (0-4) /hpf Urine WBC (0-5) /hpf Ur Epithelial Cells (0-5) /lpf Urine Bacteria (Negative) Hyaline Casts (0-5) /lpf Urine Yeast (None Prsent) Ur Random Creatinine mg/dl Ur Random Sodium mmol/L Nasal Screen MRSA (PCR) (Negative) 10/15/18 10/15/18 10/15/18 Range/Units 05:00 04:27 04:17 WBC (4.8-10.8) K/uL RBC (4.2-5.4) M/uL Hgb (12.0-16.0) g/dL Hct (37-47) % MCV (80-100) fL MCH (25-34) pg MCHC (32-36) g/dL RDW Std Deviation (36.4-46.3) fL RDW Coeff of Clay (11.5-14.5) % Plt Count (130-400) K/uL MPV (7.4-10.4) fL Immature Gran % (Auto) % Neut % (Auto) % Lymph % (Auto) % [place] % (Auto) % Eos % (Auto) % Baso % (Auto) % Immature Gran # (Auto) (0.00-0.02) K/uL Neut # (Auto) (1.4-6.5) K/uL Lymph # (Auto) (1.2-3.4) K/uL [place] # (Auto) (0.11-0.59) K/uL Eos # (Auto) (0-0.5) K/uL Baso # (Auto) (0-0.2) K/uL Rouleaux PT (9.0-12.0) Seconds INR (0.9-1.1) Sodium 126 L (136-145) mmol/L Potassium 4.2 (3.5-5.1) mmol/L Chloride 95 L (98-107) mmol/L Carbon Dioxide 26 (21-32) mmol/L Anion Gap 5.0 (3-11) BUN 22 H (7-18) mg/dl Creatinine 2.56 H D (0.6-1.2) mg/dl Est Cr Clr Drug Dosing 31.4 ml/min Est GFR ( Amer) 26.9 Est GFR (Non-Af Amer) 23.2 BUN/Creatinine Ratio 8.5 L (10-20) Glucose 216 H (70-99) mg/dl POC Glucose (other) 218 H 76 (70-99) mg/dl Calcium 7.2 L (8.5-10.1) mg/dl Phosphorus 6.8 H (2.5-4.9) mg/dl Magnesium 2.0 (1.8-2.4) mg/dl Urine Color Urine Appearance (Clear) Urine pH (4.5-7.5) Ur Specific [place] (1.000-1.030) Urine Protein (Negative) Urine Glucose (UA) (Negative) Urine Ketones (Negative) Urine Blood (Negative) Urine Nitrite (Negative) Urine Bilirubin (Negative) Urine Urobilinogen (Negative) Ur Leukocyte Esterase (Negative) Urine RBC (0-4) /hpf Urine WBC (0-5) /hpf Ur Epithelial Cells (0-5) /lpf Urine Bacteria (Negative) Hyaline Casts (0-5) /lpf Urine Yeast (None Prsent) Ur Random Creatinine mg/dl Ur Random Sodium mmol/L Nasal Screen MRSA (PCR) (Negative) 10/15/18 10/15/18 10/14/18 Range/Units 02:00 00:33 21:32 WBC (4.8-10.8) K/uL RBC (4.2-5.4) M/uL Hgb (12.0-16.0) g/dL Hct (37-47) % MCV (80-100) fL MCH (25-34) pg MCHC (32-36) g/dL RDW Std Deviation (36.4-46.3) fL RDW Coeff of Clay (11.5-14.5) % Plt Count (130-400) K/uL MPV (7.4-10.4) fL Immature Gran % (Auto) % Neut % (Auto) % Lymph % (Auto) % [place] % (Auto) % Eos % (Auto) % Baso % (Auto) % Immature Gran # (Auto) (0.00-0.02) K/uL Neut # (Auto) (1.4-6.5) K/uL Lymph # (Auto) (1.2-3.4) K/uL [place] # (Auto) (0.11-0.59) K/uL Eos # (Auto) (0-0.5) K/uL Baso # (Auto) (0-0.2) K/uL Rouleaux PT (9.0-12.0) Seconds INR (0.9-1.1) Sodium (136-145) mmol/L Potassium (3.5-5.1) mmol/L Chloride (98-107) mmol/L Carbon Dioxide (21-32) mmol/L Anion Gap (3-11) BUN (7-18) mg/dl Creatinine (0.6-1.2) mg/dl Est Cr Clr Drug Dosing ml/min Est GFR ( Amer) Est GFR (Non-Af Amer) BUN/Creatinine Ratio (10-20) Glucose (70-99) mg/dl POC Glucose (other) 234 H 243 H 165 H (70-99) mg/dl Calcium (8.5-10.1) mg/dl Phosphorus (2.5-4.9) mg/dl Magnesium (1.8-2.4) mg/dl Urine Color Urine Appearance (Clear) Urine pH (4.5-7.5) Ur Specific [place] (1.000-1.030) Urine Protein (Negative) Urine Glucose (UA) (Negative) Urine Ketones (Negative) Urine Blood (Negative) Urine Nitrite (Negative) Urine Bilirubin (Negative) Urine Urobilinogen (Negative) Ur Leukocyte Esterase (Negative) Urine RBC (0-4) /hpf Urine WBC (0-5) /hpf Ur Epithelial Cells (0-5) /lpf Urine Bacteria (Negative) Hyaline Casts (0-5) /lpf Urine Yeast (None Prsent) Ur Random Creatinine mg/dl Ur Random Sodium mmol/L Nasal Screen MRSA (PCR) (Negative) 10/14/18 10/14/18 10/14/18 Range/Units 19:53 18:13 17:30 WBC (4.8-10.8) K/uL RBC (4.2-5.4) M/uL Hgb (12.0-16.0) g/dL Hct (37-47) % MCV (80-100) fL MCH (25-34) pg MCHC (32-36) g/dL RDW Std Deviation (36.4-46.3) fL RDW Coeff of Clay (11.5-14.5) % Plt Count (130-400) K/uL MPV (7.4-10.4) fL Immature Gran % (Auto) % Neut % (Auto) % Lymph % (Auto) % [place] % (Auto) % Eos % (Auto) % Baso % (Auto) % Immature Gran # (Auto) (0.00-0.02) K/uL Neut # (Auto) (1.4-6.5) K/uL Lymph # (Auto) (1.2-3.4) K/uL [place] # (Auto) (0.11-0.59) K/uL Eos # (Auto) (0-0.5) K/uL Baso # (Auto) (0-0.2) K/uL Rouleaux PT (9.0-12.0) Seconds INR (0.9-1.1) Sodium (136-145) mmol/L Potassium (3.5-5.1) mmol/L Chloride (98-107) mmol/L Carbon Dioxide (21-32) mmol/L Anion Gap (3-11) BUN (7-18) mg/dl Creatinine (0.6-1.2) mg/dl Est Cr Clr Drug Dosing ml/min Est GFR ( Amer) Est GFR (Non-Af Amer) BUN/Creatinine Ratio (10-20) Glucose (70-99) mg/dl POC Glucose (other) 151 H 134 H (70-99) mg/dl Calcium (8.5-10.1) mg/dl Phosphorus (2.5-4.9) mg/dl Magnesium (1.8-2.4) mg/dl Urine Color Urine Appearance (Clear) Urine pH (4.5-7.5) Ur Specific [place] (1.000-1.030) Urine Protein (Negative) Urine Glucose (UA) (Negative) Urine Ketones (Negative) Urine Blood (Negative) Urine Nitrite (Negative) Urine Bilirubin (Negative) Urine Urobilinogen (Negative) Ur Leukocyte Esterase (Negative) Urine RBC (0-4) /hpf Urine WBC (0-5) /hpf Ur Epithelial Cells (0-5) /lpf Urine Bacteria (Negative) Hyaline Casts (0-5) /lpf Urine Yeast (None Prsent) Ur Random Creatinine mg/dl Ur Random Sodium 6 mmol/L Nasal Screen MRSA (PCR) (Negative) 10/14/18 10/14/18 10/14/18 Range/Units 17:30 17:30 17:29 WBC (4.8-10.8) K/uL RBC (4.2-5.4) M/uL Hgb (12.0-16.0) g/dL Hct (37-47) % MCV (80-100) fL MCH (25-34) pg MCHC (32-36) g/dL RDW Std Deviation (36.4-46.3) fL RDW Coeff of Clay (11.5-14.5) % Plt Count (130-400) K/uL MPV (7.4-10.4) fL Immature Gran % (Auto) % Neut % (Auto) % Lymph % (Auto) % [place] % (Auto) % Eos % (Auto) % Baso % (Auto) % Immature Gran # (Auto) (0.00-0.02) K/uL Neut # (Auto) (1.4-6.5) K/uL Lymph # (Auto) (1.2-3.4) K/uL [place] # (Auto) (0.11-0.59) K/uL Eos # (Auto) (0-0.5) K/uL Baso # (Auto) (0-0.2) K/uL Rouleaux PT (9.0-12.0) Seconds INR (0.9-1.1) Sodium (136-145) mmol/L Potassium (3.5-5.1) mmol/L Chloride (98-107) mmol/L Carbon Dioxide (21-32) mmol/L Anion Gap (3-11) BUN (7-18) mg/dl Creatinine (0.6-1.2) mg/dl Est Cr Clr Drug Dosing ml/min Est GFR ( Amer) Est GFR (Non-Af Amer) BUN/Creatinine Ratio (10-20) Glucose (70-99) mg/dl POC Glucose (other) (70-99) mg/dl Calcium (8.5-10.1) mg/dl Phosphorus (2.5-4.9) mg/dl Magnesium (1.8-2.4) mg/dl Urine Color [place] Urine Appearance Cloudy H (Clear) Urine pH 5.0 (4.5-7.5) Ur Specific [place] 1.025 (1.000-1.030) Urine Protein 1+ H (Negative) Urine Glucose (UA) Negative (Negative) Urine Ketones Trace H (Negative) Urine Blood Negative (Negative) Urine Nitrite Positive H (Negative) Urine Bilirubin Negative (Negative) Urine Urobilinogen Negative (Negative) Ur Leukocyte Esterase Trace H (Negative) Urine RBC 0-4 (0-4) /hpf Urine WBC 10-30 H (0-5) /hpf Ur Epithelial Cells 10-20 H (0-5) /lpf Urine Bacteria 2+ H (Negative) Hyaline Casts 0-5 (0-5) /lpf Urine Yeast Present H (None Prsent) Ur Random Creatinine 223.0 mg/dl Ur Random Sodium mmol/L Nasal Screen MRSA (PCR) Positive A (Negative) 10/14/18 10/14/18 10/14/18 Range/Units 17:05 15:33 14:28 WBC (4.8-10.8) K/uL RBC (4.2-5.4) M/uL Hgb (12.0-16.0) g/dL Hct (37-47) % MCV (80-100) fL MCH (25-34) pg MCHC (32-36) g/dL RDW Std Deviation (36.4-46.3) fL RDW Coeff of Clay (11.5-14.5) % Plt Count (130-400) K/uL MPV (7.4-10.4) fL Immature Gran % (Auto) % Neut % (Auto) % Lymph % (Auto) % [place] % (Auto) % Eos % (Auto) % Baso % (Auto) % Immature Gran # (Auto) (0.00-0.02) K/uL Neut # (Auto) (1.4-6.5) K/uL Lymph # (Auto) (1.2-3.4) K/uL [place] # (Auto) (0.11-0.59) K/uL Eos # (Auto) (0-0.5) K/uL Baso # (Auto) (0-0.2) K/uL Rouleaux PT (9.0-12.0) Seconds INR (0.9-1.1) Sodium (136-145) mmol/L Potassium (3.5-5.1) mmol/L Chloride (98-107) mmol/L Carbon Dioxide (21-32) mmol/L Anion Gap (3-11) BUN (7-18) mg/dl Creatinine (0.6-1.2) mg/dl Est Cr Clr Drug Dosing ml/min Est GFR ( Amer) Est GFR (Non-Af Amer) BUN/Creatinine Ratio (10-20) Glucose (70-99) mg/dl POC Glucose (other) 144 H 169 H 194 H (70-99) mg/dl Calcium (8.5-10.1) mg/dl Phosphorus (2.5-4.9) mg/dl Magnesium (1.8-2.4) mg/dl Urine Color Urine Appearance (Clear) Urine pH (4.5-7.5) Ur Specific [place] (1.000-1.030) Urine Protein (Negative) Urine Glucose (UA) (Negative) Urine Ketones (Negative) Urine Blood (Negative) Urine Nitrite (Negative) Urine Bilirubin (Negative) Urine Urobilinogen (Negative) Ur Leukocyte Esterase (Negative) Urine RBC (0-4) /hpf Urine WBC (0-5) /hpf Ur Epithelial Cells (0-5) /lpf Urine Bacteria (Negative) Hyaline Casts (0-5) /lpf Urine Yeast (None Prsent) Ur Random Creatinine mg/dl Ur Random Sodium mmol/L Nasal Screen MRSA (PCR) (Negative) 10/14/18 10/14/18 10/14/18 Range/Units 13:04 12:37 12:06 WBC (4.8-10.8) K/uL RBC (4.2-5.4) M/uL Hgb (12.0-16.0) g/dL Hct (37-47) % MCV (80-100) fL MCH (25-34) pg MCHC (32-36) g/dL RDW Std Deviation (36.4-46.3) fL RDW Coeff of Clay (11.5-14.5) % Plt Count (130-400) K/uL MPV (7.4-10.4) fL Immature Gran % (Auto) % Neut % (Auto) % Lymph % (Auto) % [place] % (Auto) % Eos % (Auto) % Baso % (Auto) % Immature Gran # (Auto) (0.00-0.02) K/uL Neut # (Auto) (1.4-6.5) K/uL Lymph # (Auto) (1.2-3.4) K/uL [place] # (Auto) (0.11-0.59) K/uL Eos # (Auto) (0-0.5) K/uL Baso # (Auto) (0-0.2) K/uL Rouleaux PT 11.6 (9.0-12.0) Seconds INR 1.2 H (0.9-1.1) Sodium (136-145) mmol/L Potassium (3.5-5.1) mmol/L Chloride (98-107) mmol/L Carbon Dioxide (21-32) mmol/L Anion Gap (3-11) BUN (7-18) mg/dl Creatinine (0.6-1.2) mg/dl Est Cr Clr Drug Dosing ml/min Est GFR ( Amer) Est GFR (Non-Af Amer) BUN/Creatinine Ratio (10-20) Glucose (70-99) mg/dl POC Glucose (other) 208 H 209 H (70-99) mg/dl Calcium (8.5-10.1) mg/dl Phosphorus (2.5-4.9) mg/dl Magnesium (1.8-2.4) mg/dl Urine Color Urine Appearance (Clear) Urine pH (4.5-7.5) Ur Specific [place] (1.000-1.030) Urine Protein (Negative) Urine Glucose (UA) (Negative) Urine Ketones (Negative) Urine Blood (Negative) Urine Nitrite (Negative) Urine Bilirubin (Negative) Urine Urobilinogen (Negative) Ur Leukocyte Esterase (Negative) Urine RBC (0-4) /hpf Urine WBC (0-5) /hpf Ur Epithelial Cells (0-5) /lpf Urine Bacteria (Negative) Hyaline Casts (0-5) /lpf Urine Yeast (None Prsent) Ur Random Creatinine mg/dl Ur Random Sodium mmol/L Nasal Screen MRSA (PCR) (Negative) Medications Administered Current Inpatient Medications Acetaminophen (Tylenol) 650 mg PO Q4H PRN PRN Reason: Pain or Fever Stop: 11/06/18 14:59 Acetaminophen (Ofirmev) 1,000 mg IV Q8H PRN PRN Reason: Fever Stop: 11/06/18 22:51 Last Admin: 10/12/18 00:18 Dose: 1,000 mg Dextrose (Dextrose 50%) 25 - 50 ml IV UD PRN; Protocol PRN Reason: Hypoglycemia Protocol Stop: 11/06/18 21:31 Last Admin: 10/08/18 21:11 Dose: 25 ml Ergocalciferol (Vitamin D2) 50,000 units PO Q7D CANDIDO Stop: 11/09/18 08:59 Last Admin: 10/10/18 08:34 Dose: 50,000 units Fentanyl Citrate (Fentanyl Citrate) 25 mcg IV ONE PRN PRN Reason: Pain Not Controlled by Drip Stop: 10/25/18 03:46 Fentanyl Citrate (Fentanyl Citrate) 25 mcg IV Q1H PRN PRN Reason: Moderate Pain (4,5,6) Stop: 10/25/18 03:47 Last Admin: 10/11/18 06:35 Dose: 25 mcg Glucagon (Glucagen) 1 mg IM UD PRN; Protocol PRN Reason: Hypoglycemia Protocol Stop: 11/06/18 21:31 Glucose (Glucose 40%) 15 - 30 gm PO UD PRN; Protocol PRN Reason: Hypoglycemia Protocol Stop: 11/06/18 21:31 Glucose (Dex4 Glucose) 4 - 8 tabs PO UD PRN; Protocol PRN Reason: Hypoglycemia Protocol Stop: 11/06/18 21:31 Heparin Sodium (Porcine) (Heparin Sodium (Porcine)) 5,000 units SQ Q8 CANDIDO Stop: 11/13/18 13:59 Last Admin: 10/15/18 05:00 Dose: 5,000 units Hydromorphone HCl (Dilaudid) 1 mg IV Q4H CANDIDO Stop: 10/27/18 11:59 Last Admin: 10/15/18 08:02 Dose: 1 mg Hydromorphone HCl (Dilaudid) 1 mg IV Q4H PRN PRN Reason: Pain Stop: 10/27/18 11:33 Pantoprazole Sodium 40 mg/ (Syringe) 10 mls @ 5 mls/min IV BID CANDIDO Stop: 11/06/18 20:59 Last Admin: 10/14/18 22:42 Dose: 5 mls/min Norepinephrine Bitartrate 8 mg (/ Dextrose) 508 mls @ 7.93 mls/hr IV .Q24H CANDIDO ; Protocol Stop: 11/10/18 06:19 Last Titration: 10/15/18 11:05 Dose: 0.05 mcg/kg/min, 13.2 mls/hr Ceftaroline Fosamil 200 mg/ (Sodium Chloride) 256.6667 mls @ 270 mls/hr IV Q12H CANDIDO; Protocol Stop: 10/25/18 13:59 Last Infusion: 10/15/18 01:20 Dose: Infused Rifampin 600 mg/ Dextrose 510 mls @ 167 mls/hr IV DAILY@1700 CANDIDO Stop: 11/24/18 16:59 Last Infusion: 10/15/18 01:00 Dose: Infused Propofol (Diprivan) 1,000 mg in 100 mls @ 19.536 mls/hr IV .[id number] PRN; Protocol PRN Reason: TITRATE Stop: 10/16/18 22:06 Last Admin: 10/15/18 09:42 Dose: 40 mcg/kg/min, 19.5 mls/hr Insulin Human Regular 250 (units/ Sodium Chloride) 250 mls @ 1.7 mls/hr IV .Q24H CANDIDO; Protocol Stop: 11/13/18 08:59 Last Titration: 10/15/18 10:17 Dose: 0 units/hr, 0 mls/hr Insulin Aspart (Novolog Flexpen) 0 units SC Q4 CANDIDO; Protocol Stop: 11/13/18 11:59 Insulin Glargine (Lantus Solostar Pen) 12 units SC Q12H CANDIDO; Protocol Stop: 11/13/18 07:59 Last Admin: 10/14/18 07:59 Dose: 12 units Ioversol (Optiray 320 125ml) 94 ml IV ONCE PRN PRN Reason: Interaction Checking Stop: 10/18/18 13:59 Last Admin: 10/14/18 14:02 Dose: 94 ml Lactulose (Chronulac) 30 gm PO Q8H PRN PRN Reason: Constipation Stop: 11/11/18 09:32 Last Admin: 10/13/18 08:57 Dose: 30 gm Miscellaneous (Carbohydrates For Hypoglycemia) 15 - 30 gm PO UD PRN PRN Reason: Hypoglycemia Treatment Stop: 11/06/18 21:31 Miscellaneous Information (Consult Glycemic Management Pharmacy) 1 ea N/A UD PRN PRN Reason: Consult Stop: 11/06/18 21:38 Miscellaneous Information () 1 ea N/A UD PRN PRN Reason: Consult Stop: 11/09/18 11:14 Nutritional Formula (Peptamen Intense Vhp) 1,000 ml OG UD [facility]; Protocol Stop: 11/13/18 08:29 Last Admin: 10/14/18 18:22 Dose: 1,000 ml Nystatin (Mycostatin) 5 ml PO QID [facility] Stop: 10/19/18 12:59 Last Admin: 10/14/18 22:42 Dose: 5 ml Ondansetron HCl (Zofran) 4 mg IV Q6H PRN PRN Reason: Nausea Stop: 11/06/18 14:59 Oxycodone HCl (Roxicodone) 10 mg PO Q6H [facility] Stop: 10/28/18 15:59 Last Admin: 10/15/18 04:02 Dose: 10 mg Polyethylene Glycol (Miralax Powder Packet) 17 gm PO DAILY PRN PRN Reason: Constipation Stop: 11/06/18 14:59 Vitamin D (Vitamin D3) 2,000 units PO QAM [facility] Stop: 11/09/18 08:59 Last Admin: 10/14/18 09:56 Dose: Not Given _ (1) Type 1 diabetes Chronic kidney disease stage: Diabetes mellitus complication detail: Diabetes mellitus complication status: with hyperglycemia Diabetes mellitus macular edema: Diabetic retinopathy severity: Laterality: Proliferative retinopathy type: Qualified Code(s): E10.65 - Type 1 diabetes mellitus with hyperglycemia (2) Aspiration into airway Encounter type: initial encounter Qualified Code(s): T17.908A - Unspecified foreign body in respiratory tract, part unspecified causing other injury, initial encounter
[2018-10-15] MEDS ORDERED: SODIUM CHLORIDE 0.9% 1000ML 1,000 ML IV PRN (11:59)
--- NOTE | 2018-10-15 12:05 | Critical Care Progress Note ---
Date of Service October 15, 2018 Supervising Physician Co-Signing Physician Notes Reason Critically Ill: Persistent MRSA bacteremia PLAN: Neuro: increased sedation compared to yesterday History of IV drug abuse -Reportedly injecting Suboxone Sedation and analgesia -40 mcg propofol -1 mg Dilaudid every 4 hours decreased to 0.5mg -oxycodone 10mg q6 Resp: Acute hypoxic respiratory failure -Likely multiple septic emboli -Completed SHELLEY today, -attempting removal of 3 L of fluid -Weaning for trial of extubation CV: Endocarditis -SHELLEY completed: Vegetation greater than 2 cm -Vegetation size >2 cm (odds ratio [OR] 10.2, 95% CI 1.6-78); mortality 25 versus 3.8 percent with vegetation <2 cm -Vegetation size has prognostic importance in IDUs with right-sided IE. In one study including 21 patients with tricuspid vegetations, the cure rate for patients with vegetations <1 cm versus ?1 cm was 100 versus 60 percent, respectively In another study including 132 episodes of tricuspid valve IE, mortality rates in patients with vegetations <1 cm, 1.1 to 2 cm, and >2 cm were 0, 3, and 33 percent, respectively -7 days of persistent bacteremia will attempt to transfer to quaternary care for surgical management given increased risk of mortality and morbidity -Awaiting Teflaro susceptibilities from reference lab Persistent hypotension -Check random cortisol for adrenal insufficiency Fluids/Renal: Acute kidney injury -Receiving temporary renal replacement therapy attempting to remove 3 L today ID: Persistent bacteremia greater than 7 days -Will ultimately require additional blood cultures -Adding daptomycin for synergy Receiving Teflaro and rifampin -Reviewed infectious disease recommendations Multiple orthopedic pain complaints -Reviewed CT scan and report -No adverse reaction to iodinated contrast -No significant infectious finding for additional source or abscess GI/Nutrition: Receiving tube feed formulation -Will restart tube feeds if unable to extubate Heme: Anemia NOS DVT prophylaxis: Heparin 5000 3 times daily -Venous duplex rule out DVT versus septic thrombophlebitis no evidence of thrombus in lower extremities upper extremity duplex pending Endocrine: ICU hyperglycemia protocol Insulin infusion -Likely stress related and secondary to restarting tube feeds Vascular access: Right IJ HD cath left radial A-line Code Status: Full I have personally spent 60 minutes of critical care time in the direct management of this patient. This is a life/limb threatening event. This includes time spent evaluating patient, direct bedside care, chart review, placing orders, interpretation of diagnostic studies, discussion with consultants, patient, and/or family members regarding treatment decisions, as well as other required patient management activities. This time is exclusive of all separately billable procedures, and teaching time and separate from and in addition to any other critical care service time. Subjective The patient open her eyes and follow simple command, she is writing her answers , she remains intubated, she is well sedated on propofol and fentanyl, she does have occasional agitation, she did tolerate the dialysis yesterday, and she will be having another dose tomorrow, no events overnight. Physical Exam 2 Vital Signs (Past 24 Hours): Last Vital Signs Temp 36.7 C 10/15/18 10:00 Pulse 89 10/15/18 11:30 Resp 19 10/15/18 10:20 BP 110/62 10/15/18 11:30 Pulse Ox 97 10/15/18 10:20 General: Alert. nontoxic. Skin: Warm, dry, Head: Atraumatic Ears, nose, mouth and throat: airway obscured by endotracheal tube Cardiovascular: Normal peripheral perfusion Respiratory: no respiratory distress Gastrointestinal: Non distended Musculoskeletal: No deformity, diffuse anasarca
[2018-10-15] MEDS ORDERED: EPOETIN ALFA 20,000 UNITS/ML VIAL IV ONE (12:45)
[2018-10-15] MEDS: HYDROmorphone INJ 0.5 MG/0.5 ML SYR IV SCH ×3 (14:18→19:34)
[2018-10-15] MEDS: NYSTATIN SUSP 500,000 U/5 ML UDC PO SCH ×4 (14:19→21:04)
[2018-10-15] MEDS: CHOLECALCIFEROL 1,000 UNITS TAB PO SCH (14:21)
[2018-10-15] MEDS: PANTOprazole 40 MG in SYRINGE 0 ML IV SCH ×2 (14:25→21:03)
[2018-10-15] MEDS: INSULIN REGULAR 250 UNITS in SODIUM CHLORIDE 0.9% 247.5 ML IV SCH (14:26)
[2018-10-15] MEDS: PEPTAMEN INTENSE VHP 1.0 CAL 1,000 ML BAG OG SCH (14:28)
--- NOTE | 2018-10-15 16:09 | Ultrasound Report ---
US venous doppler UE BI CLINICAL HISTORY: Persistent bacteremia. COMPARISON STUDY: No previous studies for comparison. FINDINGS: No intraluminal thrombus was visualized. The internal jugular, subclavian, axillary, cephal ic, brachial, basilic, radial, and ulnar veins were patent. Note there is an indwelling right-sided P ICC catheter. The distal right brachial and basilic veins were nonvisualized due to the PICC catheter and bandaging. The right internal jugular and innominate veins were not visualized due to an IV. The distal left ulnar and radial veins were nonvisualized due to IV bandaging. IMPRESSION: No evidence of upper extremity deep venous thrombosis. (Several veins were nonvisualized due to IV bandaging.] Electronically signed by: Aidan Kendrick M.D. 10/15/2018 4:08 PM
[2018-10-15] MEDS: DAPTOmycin 450 MG in SYRINGE 0 ML IV SCH (16:12)
[2018-10-15] MEDS: rifAMPin 600 MG in DEXTROSE 5% 500 ML IV SCH (16:15)
[2018-10-16] MEDS: HYDROmorphone INJ 0.5 MG/0.5 ML SYR IV SCH ×3 (00:02→08:04)
[2018-10-16] MEDS: CEFTAROLINE FOSAMIL ACETATE 200 MG in SODIUM CHLORIDE 0.9% 250 ML IV SCH ×3 (00:02→21:40)
[2018-10-16] MEDS: OXYCODONE HCL SOLN 5 MG/5 ML UDC PO SCH ×4 (04:16→21:39)
[2018-10-16 05:17] LABS: Basophils # (auto) 0.02 K/uL (0-0.2); Basophils % (auto) 0.1 %; Eosinophils # (auto) 0.27 K/uL (0-0.5); Eosinophils % (auto) 1.8 %; Hematocrit (blood only) 24.3 % (37-47); Hemoglobin 8.5 g/dL (12.0-16.0); Immature Granulocytes # (auto) 0.18 K/uL (0.00-0.02); Immature Granulocytes % (auto) 1.2 %; Lymphocytes # (auto) 2.05 K/uL (1.2-3.4); Lymphocytes % (auto) 13.6 %; Mean Corpuscular Volume 77.9 fL (80-100); Monocytes # (auto) 0.66 K/uL (0.11-0.59); Monocytes % (auto) 4.4 %; Neutrophils # (auto) 11.84 K/uL (1.4-6.5); Neutrophils % (auto) 78.9 %; Platelet Count 216 K/uL (130-400); RDW Coefficient of Variation 15.9 % (11.5-14.5); RDW Standard Deviation 45.1 fL (36.4-46.3); Red Blood Count 3.12 M/uL (4.2-5.4); White Blood Count 15.02 K/uL (4.8-10.8)
[2018-10-16 05:43] LABS: RBC Morphology Unremarkable
[2018-10-16 05:51] LABS: iSTAT Arterial Blood Gas HCO3 25 meg/L (19-24); iSTAT Carbon Dioxide 26 mEq/l (24-31)
[2018-10-16] MEDS: HEPARIN SOD 5,000 UNIT/0.5 ML VIAL SQ SCH ×3 (06:18→20:30)
[2018-10-16 06:20] LABS: BUN Creatinine Ratio 7.1 (10-20); Calcium 7.1 mg/dl (8.5-10.1); Est GFR (African American) 42.1; Est GFR (Non-African American) 36.3; Magnesium 1.9 mg/dl (1.8-2.4); Phosphorus 4.3 mg/dl (2.5-4.9); Potassium 3.2 mmol/L (3.5-5.1)
--- NOTE | 2018-10-16 07:19 | XRay Report ---
XR chest 1V portable CLINICAL HISTORY: f/u infiltrate COMPARISON STUDY: 10/14/2017 FINDINGS: Interval removal of the endotracheal tube. Perm catheter remains in the superior vena cava. Bilateral parenchymal infiltrative changes persist. Consolidative changes left lung base are unaltere d. IMPRESSION: 1. Interval extubation. 2. Bilateral parenchymal infiltrative changes with left basilar consolidation. 3. The parenchymal findings are unchanged. The above report was generated using voice recognition software. It may contain grammatical, syntax or spelling errors. Electronically signed by: Franco Zuniga M.D. 10/16/2018 7:17 AM
[2018-10-16] MEDS: PANTOprazole 40 MG in SYRINGE 0 ML IV SCH ×2 (08:04→20:30)
[2018-10-16] MEDS ORDERED: METOPROLOL TARTRATE 1 MG/ML VIAL IV STA (08:34)
[2018-10-16] MEDS: CHOLECALCIFEROL 1,000 UNITS TAB PO SCH (08:44)
[2018-10-16] MEDS: NYSTATIN SUSP 500,000 U/5 ML UDC PO SCH ×4 (08:45→20:29)
[2018-10-16] MEDS: INSULIN REGULAR 250 UNITS in SODIUM CHLORIDE 0.9% 247.5 ML IV SCH (08:45)
--- NOTE | 2018-10-16 09:11 | Critical Care Progress Note ---
Date of Service October 16, 2018 Supervising Physician Co-Signing Physician Notes Reason Critically Ill: Persistent MRSA bacteremia PLAN: Neuro: Chronic narcotic use and abuse Considered methadone therapy however QTC prolonged -Reportedly injecting Suboxone -Patient will require some sort of opiate replacement therapy -5 mg OxyContin twice daily, 10 mg oxycodone every 6 -Conversion calculation came to approximately 10 mg OxyContin twice daily, 10 mg oxycodone every 6 however cautious of respiratory depression in the setting of acute kidney injury -Pharmacy only stocks 10 mg OxyContin, will proceed with 10 mg OxyContin and monitor with end-tidal CO2, continently decreasing immediate release oxycodone from 10 to 5 mg Resp: Patient self extubated last evening -Weaning supplemental oxygen -Attempting more fluid removal via dialysis CV: Endocarditis -Would benefit from repeat evaluation by cardiothoracic surgery, will discuss with infectious disease and primary service Persistent hypotension -Resolved Fluids/Renal: Acute kidney injury -Awaiting return of [place] [facility] [place] renal function ID: Persistent bacteremia greater than 7 days -Will ultimately require additional blood cultures -Adding daptomycin for synergy Receiving Teflaro and rifampin -Reviewed Teflaro sensitivities Multiple orthopedic pain complaints -Reviewed CT scan and report -No significant infectious finding for additional source or abscess GI/Nutrition: ADA diet Heme: Anemia NOS DVT prophylaxis: Heparin 5000 3 times daily -Venous duplex rule out DVT versus septic thrombophlebitis no evidence of thrombus in lower extremities upper extremity duplex also negative Endocrine: ICU hyperglycemia protocol Insulin infusion -Likely stress related and secondary to restarting tube feeds Vascular access: Right IJ HD cath Discontinue left radial art line today Code Status: Full Patient is at high risk for morbidity and mortality related to right-sided heart failure secondary to endocarditis and persistent bacteremia. I have personally spent 50 minutes of critical care time in the direct management of this patient. This is a life/limb threatening event. This includes time spent evaluating patient, direct bedside care, chart review, placing orders, interpretation of diagnostic studies, discussion with consultants, patient, and/or family members regarding treatment decisions, as well as other required patient management activities. This time is exclusive of all separately billable procedures, and teaching time and separate from and in addition to any other critical care service time. Subjective Patient self extubated overnight, pain tolerable. Reports that she was not using clean needles every time that she was injecting her Suboxone. She reports she would take her pill form Suboxone and dissolve it into fluid and inject that substance. She had been receiving Suboxone from the clinic. Physical Exam 2 Vital Signs (Past 24 Hours): Last Vital Signs Temp 36.6 C 10/16/18 04:00 Pulse 111 H 10/16/18 08:46 Resp 18 10/16/18 06:00 BP 113/64 10/16/18 08:46 Pulse Ox 97 10/16/18 06:00 General: Alert. nontoxic. Skin: Warm, dry, Head: Atraumatic Ears, nose, mouth and throat: airway patent Cardiovascular: Normal peripheral perfusion Respiratory: no respiratory distress Gastrointestinal: Non distended Musculoskeletal: No deformity, diffuse anasarca mildly decreased from yesterday
--- NOTE | 2018-10-16 09:55 | Nephrology Progress Note ---
Date of Service October 16, 2018 Assessment & Plan (1) Acute kidney injury: 37 year old white female w/ IDDM & h/o IVDA presents with DKA, MRSA sepsis, endocarditis and KAREN. KAREN is likely multifactoral including dehydration at time of admission, sepsis and recent Vancomycin administration. Patient is now oliguric w/ volume overload requiring mechanical ventilation. She requires pressor support and has multiple electrolyte abnomalities. -- plan for dialysis today for 4 hours, UF as tolerated, aim for 3 L --request vascular sx to place TDC and remove temporary line. -- Monitor PRP Will follow Subjective Princess was seen and examined this morning. She is is awake, alert. She was extubated yesterday evening currently doing well on nasal cannula oxygen. Started on clear liquid and diet is being advanced. Remained anuric. Electrolyte acceptable. Volume status seems to have improved significantly. Physical Exam 2 Vital Signs (Past 24 Hours): Last Vital Signs Temp 36.6 C 10/16/18 08:16 Pulse 97 H 10/16/18 09:01 Resp 15 10/16/18 09:01 BP 118/78 10/16/18 09:01 Pulse Ox 100 10/16/18 09:01 Constitutional: + ill appearing Respiratory: Auscultation: + crackles Cardiovascular: RRR, no murmur, no edema (Generalized edema) Extremities: + edema Gastrointestinal (Abdomen): Inspection/Auscultation: normal bowel sounds Neurologic: moves all extremities and awake Psychiatric: Orientation: alert and oriented x 3 Insight: good insight Judgement: good judgement
[2018-10-16] MEDS: OXYCODONE HCL 10 MG TABCR (OXYCONTIN) PO SCH ×2 (09:57→20:29)
[2018-10-16] MEDS ORDERED: NALOXONE HCL 0.4 MG/1 ML VIAL/CARP IV PRN (09:58)
[2018-10-16] MEDS: INSULIN ASPART 100 UNITS/ML 3 ML PEN SC SCH ×3 (13:14→20:26)
--- NOTE | 2018-10-16 17:35 | Family Medicine Progress Note ---
Date of Service October 16, 2018 Assessment & Plan (1) MRSA (methicillin resistant Staphylococcus aureus) septicemia: Princses is a 37-year-old female with a past medical history of IV drug abuse and type 1 diabetes who presented with polyuria and extremity pain and who was admitted for DKA and whose hospital stay has been complicated by MRSA septicemia with tricuspid vegetation on echo. She developed acute renal failure and required dialysis today. She required pressor support and intubation and was transferred for ICU care. Septic shock secondary to MRSA bacteremia �Blood cultures positive for MRSA �Borderline sensitivity to vancomycin with CHELSEA = 2 �ID consulted, based on her development of acute kidney failure and borderline sensitivity to vancomycin recommended switch to ceftaroline + rifampin. �Ceftaroline 200 mg twice daily plus rifampin 600 mg daily. - Daptomycin added for improved coverage despite poor lung penetration �Echo shows tricuspid valve endocarditis, See below �Septic emboli to lungs, shoulder, and rest �Currently off norepinephrine pressor support, normotensive. Tricuspid valve endocarditis �MRSA septicemia as above �Treatment with ceftaroline + rifampin + dapto as above - TV vegetation could continue to seed BC+ for an extended period of time, Repeat echo so it was a large greater than 2 cm vegetation without secondary vegetations. She has increased morbidity and mortality, and is at a higher risk of treatment failure based on vegetation size. Acute hypoxic respiratory failure �In the setting of multiple septic emboli �Currently extubated, O2S 96% on Room Air. Acute renal failure �Multifactorial. Contributing elements include DKA, prerenal, sepsis, and vancomycin. �Undergoing dialysis. Previously anuric, currently oliguric �Nephrology following, Recommend tunneled dialysis catheter �3 L diasylate removed yesterday, 2.8 today. Bacteruria - UA Positive for bacteria and nitrites, UC shows minimal growth and is likely contaminant versus mild kami in the setting of stasis DKA (resolved) �Blood sugar 1220 on admission �Treated with DKA protocol on admit �AM Glucose 216 today �Insulin GTT Multifocal pain �Multiple septic emboli � Oxycodone 10mg PO Q6H �1 mg hydromorphone every 4 hour CANDIDO + PRN IV drug abuse �History of injecting Suboxone �Will require counseling and possible rehab on discharge Diet: Tolerating PO well, T1 Diabetic Diet DVT Prophylaxsis: On heparin 5,000U Q8H (2) Acute kidney failure: (3) Right shoulder pain: (4) Wrist pain, left: (5) Aspiration into airway: (6) Hyperglycemia: (7) Hyponatremia: (8) DVT prophylaxis: Supervising Physician Co-Signing Physician Notes Resident Physician Supervision Note: I independently interviewed and examined the patient and verified the cotton history and physical, reviewed labs and image studies, discussed the case with the resident Dr. Hayes and agree with the findings and care plan. Subjective But reports she pulled out her endotracheal tube and OG tube overnight by accident. She has been breathing okay since then, and is slightly short of breath. She endorses some pain in her left shoulder, right wrist this morning. no chest pain this morning. She reports she feels diffusely achy. She has not felt cold or feverish this morning. She reports she is very hungry, and is much more hungry than in pain.Denies sore throat no sore throat. Review of Systems See HPI Constitutional: + body aches and + increased appetite; no fever and no chills Respiratory: + chest congestion and + dyspnea Physical Exam 2 Vital Signs (Past 24 Hours): Last Vital Signs Temp 36.7 C 10/16/18 13:50 Pulse 109 H 10/16/18 17:15 Resp 19 10/16/18 12:31 BP 113/63 10/16/18 17:15 Pulse Ox 96 10/16/18 16:00 Physical Exam: General: A&Ox3. Appears ill. Cooperative. HEENT: Atraumatic, normocephalic. Pulm: Moderate air movement, bibasilar crackles appreciated. No increased work of breathing. No respiratory distress. Cardiac: RRR, -mrg. No JVD. Abdominal: Nontender, endorses hunger on palpation. BS present. Extremities: Distal extremity edema present bilaterally Results & Data Laboratory Results Abnormal lab results 10/15/18 10/15/18 10/15/18 Range/Units 18:19 19:49 21:27 WBC (4.8-10.8) K/uL RBC (4.2-5.4) M/uL Hgb (12.0-16.0) g/dL Hct (37-47) % MCV (80-100) fL RDW Coeff of [place] (11.5-14.5) % Immature Gran # (Auto) (0.00-0.02) K/uL Neut # (Auto) (1.4-6.5) K/uL [place] # (Auto) (0.11-0.59) K/uL POC pH (7.35-7.45) POC pCO2 (35-46) mmHg POC pO2 (80-95) mmHg POC HCO3 (19-24) frank/L Sodium (136-145) mmol/L Potassium (3.5-5.1) mmol/L Chloride (98-107) mmol/L Creatinine (0.6-1.2) mg/dl BUN/Creatinine Ratio (10-20) Glucose (70-99) mg/dl POC Glucose (70-99) POC Glucose (other) 207 H 210 H 183 H (70-99) mg/dl Calcium (8.5-10.1) mg/dl 10/15/18 10/15/18 10/16/18 Range/Units 22:18 23:57 01:08 WBC (4.8-10.8) K/uL RBC (4.2-5.4) M/uL Hgb (12.0-16.0) g/dL Hct (37-47) % MCV (80-100) fL RDW Coeff of [place] (11.5-14.5) % Immature Gran # (Auto) (0.00-0.02) K/uL Neut # (Auto) (1.4-6.5) K/uL [place] # (Auto) (0.11-0.59) K/uL POC pH (7.35-7.45) POC pCO2 (35-46) mmHg POC pO2 (80-95) mmHg POC HCO3 (19-24) frank/L Sodium (136-145) mmol/L Potassium (3.5-5.1) mmol/L Chloride (98-107) mmol/L Creatinine (0.6-1.2) mg/dl BUN/Creatinine Ratio (10-20) Glucose (70-99) mg/dl POC Glucose 171 H (70-99) POC Glucose (other) 143 H 177 H (70-99) mg/dl Calcium (8.5-10.1) mg/dl 10/16/18 10/16/18 10/16/18 Range/Units 02:10 04:19 04:58 WBC 15.02 H (4.8-10.8) K/uL RBC 3.12 L (4.2-5.4) M/uL Hgb 8.5 L (12.0-16.0) g/dL Hct 24.3 L (37-47) % MCV 77.9 L (80-100) fL RDW Coeff of [place] 15.9 H (11.5-14.5) % Immature Gran # (Auto) 0.18 H (0.00-0.02) K/uL Neut # (Auto) 11.84 H (1.4-6.5) K/uL [place] # (Auto) 0.66 H (0.11-0.59) K/uL POC pH (7.35-7.45) POC pCO2 (35-46) mmHg POC pO2 (80-95) mmHg POC HCO3 (19-24) frank/L Sodium (136-145) mmol/L Potassium (3.5-5.1) mmol/L Chloride (98-107) mmol/L Creatinine (0.6-1.2) mg/dl BUN/Creatinine Ratio (10-20) Glucose (70-99) mg/dl POC Glucose 150 H 142 H (70-99) POC Glucose (other) (70-99) mg/dl Calcium (8.5-10.1) mg/dl 10/16/18 10/16/18 10/16/18 Range/Units 04:58 05:38 07:50 WBC (4.8-10.8) K/uL RBC (4.2-5.4) M/uL Hgb (12.0-16.0) g/dL Hct (37-47) % MCV (80-100) fL RDW Coeff of [place] (11.5-14.5) % Immature Gran # (Auto) (0.00-0.02) K/uL Neut # (Auto) (1.4-6.5) K/uL [place] # (Auto) (0.11-0.59) K/uL POC pH 7.50 H (7.35-7.45) POC pCO2 32 L (35-46) mmHg POC pO2 52 L (80-95) mmHg POC HCO3 25 H (19-24) frank/L Sodium 129 L (136-145) mmol/L Potassium 3.2 L D (3.5-5.1) mmol/L Chloride 97 L (98-107) mmol/L Creatinine 1.77 H D (0.6-1.2) mg/dl BUN/Creatinine Ratio 7.1 L (10-20) Glucose 137 H (70-99) mg/dl POC Glucose 114 H (70-99) POC Glucose (other) (70-99) mg/dl Calcium 7.1 L (8.5-10.1) mg/dl 10/16/18 10/16/18 10/16/18 Range/Units 09:06 10:04 11:10 WBC (4.8-10.8) K/uL RBC (4.2-5.4) M/uL Hgb (12.0-16.0) g/dL Hct (37-47) % MCV (80-100) fL RDW Coeff of [place] (11.5-14.5) % Immature Gran # (Auto) (0.00-0.02) K/uL Neut # (Auto) (1.4-6.5) K/uL [place] # (Auto) (0.11-0.59) K/uL POC pH (7.35-7.45) POC pCO2 (35-46) mmHg POC pO2 (80-95) mmHg POC HCO3 (19-24) frank/L Sodium (136-145) mmol/L Potassium (3.5-5.1) mmol/L Chloride (98-107) mmol/L Creatinine (0.6-1.2) mg/dl BUN/Creatinine Ratio (10-20) Glucose (70-99) mg/dl POC Glucose 113 H 112 H 151 H (70-99) POC Glucose (other) (70-99) mg/dl Calcium (8.5-10.1) mg/dl 10/16/18 10/16/18 10/16/18 Range/Units 12:23 13:12 14:15 WBC (4.8-10.8) K/uL RBC (4.2-5.4) M/uL Hgb (12.0-16.0) g/dL Hct (37-47) % MCV (80-100) fL RDW Coeff of [place] (11.5-14.5) % Immature Gran # (Auto) (0.00-0.02) K/uL Neut # (Auto) (1.4-6.5) K/uL [place] # (Auto) (0.11-0.59) K/uL POC pH (7.35-7.45) POC pCO2 (35-46) mmHg POC pO2 (80-95) mmHg POC HCO3 (19-24) frank/L Sodium (136-145) mmol/L Potassium (3.5-5.1) mmol/L Chloride (98-107) mmol/L Creatinine (0.6-1.2) mg/dl BUN/Creatinine Ratio (10-20) Glucose (70-99) mg/dl POC Glucose 166 H 155 H 143 H (70-99) POC Glucose (other) (70-99) mg/dl Calcium (8.5-10.1) mg/dl 10/16/18 10/16/18 Range/Units 16:14 17:07 WBC (4.8-10.8) K/uL RBC (4.2-5.4) M/uL Hgb (12.0-16.0) g/dL Hct (37-47) % MCV (80-100) fL RDW Coeff of [place] (11.5-14.5) % Immature Gran # (Auto) (0.00-0.02) K/uL Neut # (Auto) (1.4-6.5) K/uL [place] # (Auto) (0.11-0.59) K/uL POC pH (7.35-7.45) POC pCO2 (35-46) mmHg POC pO2 (80-95) mmHg POC HCO3 (19-24) frank/L Sodium (136-145) mmol/L Potassium (3.5-5.1) mmol/L Chloride (98-107) mmol/L Creatinine (0.6-1.2) mg/dl BUN/Creatinine Ratio (10-20) Glucose (70-99) mg/dl POC Glucose 116 H 106 H (70-99) POC Glucose (other) (70-99) mg/dl Calcium (8.5-10.1) mg/dl Medications Administered Current Inpatient Medications Acetaminophen (Tylenol) 650 mg PO Q4H PRN PRN Reason: Pain or Fever Stop: 11/06/18 14:59 Acetaminophen (Ofirmev) 1,000 mg IV Q8H PRN PRN Reason: Fever Stop: 11/06/18 22:51 Last Admin: 10/12/18 00:18 Dose: 1,000 mg Dextrose (Dextrose 50%) 25 - 50 ml IV UD PRN; Protocol PRN Reason: Hypoglycemia Protocol Stop: 11/06/18 21:31 Last Admin: 10/08/18 21:11 Dose: 25 ml Ergocalciferol (Vitamin D2) 50,000 units PO Q7D [facility] Stop: 11/09/18 08:59 Last Admin: 10/10/18 08:34 Dose: 50,000 units Fentanyl Citrate (Fentanyl Citrate) 25 mcg IV ONE PRN PRN Reason: Pain Not Controlled by Drip Stop: 10/25/18 03:46 Glucagon (Glucagen) 1 mg IM UD PRN; Protocol PRN Reason: Hypoglycemia Protocol Stop: 11/06/18 21:31 Glucose (Glucose 40%) 15 - 30 gm PO UD PRN; Protocol PRN Reason: Hypoglycemia Protocol Stop: 11/06/18 21:31 Glucose (Dex4 Glucose) 4 - 8 tabs PO UD PRN; Protocol PRN Reason: Hypoglycemia Protocol Stop: 11/06/18 21:31 Heparin Sodium (Porcine) (Heparin Sodium (Porcine)) 5,000 units SQ Q8 [facility] Stop: 11/13/18 13:59 Last Admin: 10/16/18 14:36 Dose: Not Given Pantoprazole Sodium 40 mg/ (Syringe) 10 mls @ 5 mls/min IV BID [facility] Stop: 11/06/18 20:59 Last Admin: 10/16/18 08:04 Dose: 5 mls/min Norepinephrine Bitartrate 8 mg (/ Dextrose) 508 mls @ 0 mls/hr IV .Q0M [facility]; Protocol Stop: 11/10/18 06:19 Last Titration: 10/16/18 01:22 Dose: 0 mcg/kg/min, 0 mls/hr Ceftaroline Fosamil 200 mg/ (Sodium Chloride) 256.6667 mls @ 270 mls/hr IV Q12H [facility]; Protocol Stop: 10/25/18 13:59 Last Infusion: 10/16/18 11:13 Dose: Infused Rifampin 600 mg/ Dextrose 510 mls @ 167 mls/hr IV DAILY@1700 [facility] Stop: 11/24/18 16:59 Last Infusion: 10/15/18 19:19 Dose: Infused Insulin Human Regular 250 (units/ Sodium Chloride) 250 mls @ 1.8 mls/hr IV .Q24H [facility]; Protocol Stop: 11/13/18 08:59 Last Admin: 10/16/18 08:45 Dose: 1.8 units/hr, 1.8 mls/hr Daptomycin 450 mg/ Syringe 9 mls @ 0 mls/min IV Q48H [facility]; Protocol Stop: 10/29/18 15:29 Last Admin: 10/15/18 16:12 Dose: 5 mls/min Insulin Aspart (Novolog Flexpen) 0 units SC Q4 [facility]; Protocol Stop: 11/13/18 11:59 Insulin Aspart (Novolog Flexpen) 0 units SC [facility] Stop: 11/15/18 12:59 Last Admin: 10/16/18 13:14 Dose: Not Given Insulin Glargine (Lantus Solostar Pen) 12 units SC Q12H [facility]; Protocol Stop: 11/13/18 07:59 Last Admin: 10/14/18 07:59 Dose: 12 units Ioversol (Optiray 320 125ml) 94 ml IV ONCE PRN PRN Reason: Interaction Checking Stop: 10/18/18 13:59 Last Admin: 10/14/18 14:02 Dose: 94 ml Lactulose (Chronulac) 30 gm PO Q8H PRN PRN Reason: Constipation Stop: 11/11/18 09:32 Last Admin: 10/13/18 08:57 Dose: 30 gm Miscellaneous (Carbohydrates For Hypoglycemia) 15 - 30 gm PO UD PRN PRN Reason: Hypoglycemia Treatment Stop: 11/06/18 21:31 Miscellaneous (Pending Order) 1 ea N/A QAM [facility] Stop: 11/17/18 08:59 Miscellaneous Information (Consult Glycemic Management Pharmacy) 1 ea N/A UD PRN PRN Reason: Consult Stop: 11/06/18 21:38 Miscellaneous Information () 1 ea N/A UD PRN PRN Reason: Consult Stop: 11/09/18 11:14 Naloxone HCl (Narcan) 0.2 mg IV PRN PRN PRN Reason: OVER Sedation Stop: 11/15/18 09:57 Nystatin (Mycostatin) 5 ml PO QID [facility] Stop: 10/19/18 12:59 Last Admin: 10/16/18 17:27 Dose: 5 ml Ondansetron HCl (Zofran) 4 mg IV Q6H PRN PRN Reason: Nausea Stop: 11/06/18 14:59 Oxycodone HCl (Oxycontin) 10 mg PO BID [facility] Stop: 10/30/18 09:59 Last Admin: 10/16/18 09:57 Dose: 10 mg Oxycodone HCl (Roxicodone) 5 mg PO Q6H [facility] Stop: 10/30/18 09:59 Last Admin: 10/16/18 17:27 Dose: 5 mg Polyethylene Glycol (Miralax Powder Packet) 17 gm PO DAILY PRN PRN Reason: Constipation Stop: 11/06/18 14:59 Vitamin D (Vitamin D3) 2,000 units PO QAM [facility] Stop: 11/09/18 08:59 Last Admin: 10/16/18 08:44 Dose: 2,000 units Resident Activity Tracking Resident Involvement: Resident Care Provided Care Provided: [facility] Medicine _ (1) Aspiration into airway Encounter type: initial encounter Qualified Code(s): T17.908A - Unspecified foreign body in respiratory tract, part unspecified causing other injury, initial encounter
[2018-10-16] MEDS: rifAMPin 600 MG in DEXTROSE 5% 500 ML IV SCH (18:04)
[2018-10-16] MEDS: METOPROLOL TARTRATE 25 MG TAB PO SCH (21:40)
[2018-10-17] MEDS: OXYCODONE HCL SOLN 5 MG/5 ML UDC PO SCH ×4 (03:14→21:38)
[2018-10-17 04:31] LABS: Hemoglobin 7.8 g/dL (12.0-16.0); Mean Corpuscular Hgb Conc 33.9 g/dL (32-36); Mean Corpuscular Volume 78.8 fL (80-100); Mean Platelet Volume 9.7 fL (7.4-10.4); Platelet Count 255 K/uL (130-400); RDW Coefficient of Variation 15.3 % (11.5-14.5); RDW Standard Deviation 44.1 fL (36.4-46.3); Red Blood Count 2.92 M/uL (4.2-5.4); White Blood Count 15.27 K/uL (4.8-10.8)
[2018-10-17 04:58] LABS: Alanine Aminotransferase < 6 U/L (12-78); Albumin Level 1.1 gm/dl (3.4-5.0); Alkaline Phosphatase 156 U/L (45-117); Aspartate Aminotransferase 13 U/L (15-37); Bilirubin Direct 0.5 mg/dl (0-0.2); Bilirubin,Total 0.8 mg/dl (0.2-1); Total Protein 6.5 gm/dl (6.4-8.2)
[2018-10-17] MEDS: HEPARIN SOD 5,000 UNIT/0.5 ML VIAL SQ SCH ×3 (06:18→20:13)
[2018-10-17 06:21] LABS: BUN Creatinine Ratio 6.7 (10-20); Creatinine Clr Calc Pharmacy 61.4 ml/min; Est GFR (African American) 62.3; Est GFR (Non-African American) 53.7; Magnesium 1.9 mg/dl (1.8-2.4); Potassium 3.1 mmol/L (3.5-5.1)
--- NOTE | 2018-10-17 07:57 | Critical Care Progress Note ---
Date of Service October 17, 2018 Supervising Physician Co-Signing Physician Notes Reason Critically Ill: Persistent MRSA bacteremia PLAN: Neuro: Chronic narcotic use and abuse Considered methadone therapy however QTC prolonged -Reportedly injecting Suboxone -10 mg OxyContin twice daily, 5 mg oxycodone every 6h -Patient not requesting additional narcotics so I think we have optimized her opiate dosing Resp: Hypoxic respiratory failure: Resolved CV: Endocarditis -Would benefit from repeat evaluation by cardiothoracic surgery Persistent hypotension -Resolved Tachycardia -Added beta-mela -Increasing to 25 twice daily Fluids/Renal: Acute kidney injury -Awaiting return of saxman renal function - 80 mg Lasix today ID: Persistent bacteremia greater than 7 days -Will ultimately require additional blood cultures -daptomycin for synergy Receiving Teflaro and rifampin -Reviewed Teflaro sensitivities: Acceptable Multiple orthopedic pain complaints -Reviewed CT scan and report -No significant infectious finding for additional source or abscess Diarrhea - check c. diff GI/Nutrition: ADA diet Heme: Anemia NOS DVT prophylaxis: Heparin 5000 3 times daily -Venous duplex rule out DVT versus septic thrombophlebitis no evidence of thrombus in lower extremities upper extremity duplex also negative Endocrine: ICU hyperglycemia protocol Insulin infusion: Transitioning to subcutaneous insulin Vascular access: Right IJ HD cath Code Status: Full Patient is at high risk for morbidity and mortality related to right-sided heart failure secondary to endocarditis and persistent bacteremia. Patient was discussed in multidisciplinary rounds Stable for downgrade out of the ICU. Highly complex patient with multiple comorbidities and organ system failures Subjective Patient is hungry and desires more nutrition Physical Exam 2 Vital Signs (Past 24 Hours): Last Vital Signs Temp 36.6 C 10/17/18 04:01 Pulse 105 H 10/17/18 05:01 Resp 18 10/17/18 02:01 BP 152/113 H 10/17/18 05:01 Pulse Ox 95 10/17/18 05:01 General: Alert. nontoxic. Skin: Warm, dry, Head: Atraumatic Ears, nose, mouth and throat: airway patent Cardiovascular: Normal peripheral perfusion Respiratory: no respiratory distress Gastrointestinal: Non distended Musculoskeletal: No deformity decreased anasarca compared to yesterday Results & Data Laboratory Results 10/17/18 10/17/18 10/17/18 Range/Units 06:14 04:09 04:09 WBC (4.8-10.8) K/uL RBC (4.2-5.4) M/uL Hgb (12.0-16.0) g/dL Hct (37-47) % MCV (80-100) fL MCH (25-34) pg MCHC (32-36) g/dL RDW Std Deviation (36.4-46.3) fL RDW Coeff of Clay (11.5-14.5) % Plt Count (130-400) K/uL MPV (7.4-10.4) fL Sodium 128 L (136-145) mmol/L Potassium 3.1 L (3.5-5.1) mmol/L Chloride 95 L (98-107) mmol/L Carbon Dioxide 29 (21-32) mmol/L Anion Gap 4.0 (3-11) BUN 9 (7-18) mg/dl Creatinine 1.28 H D (0.6-1.2) mg/dl Est Cr Clr Drug Dosing 61.4 ml/min Est GFR ( Amer) 62.3 Est GFR (Non-Af Amer) 53.7 BUN/Creatinine Ratio 6.7 L (10-20) Glucose 138 H (70-99) mg/dl POC Glucose 121 H (70-99) Calcium 7.0 L (8.5-10.1) mg/dl Phosphorus 3.0 D (2.5-4.9) mg/dl Magnesium 1.9 (1.8-2.4) mg/dl Total Bilirubin 0.8 (0.2-1) mg/dl Direct Bilirubin 0.5 H (0-0.2) mg/dl AST 13 L (15-37) U/L ALT < 6 L (12-78) U/L Alkaline Phosphatase 156 H (45-117) U/L Total Protein 6.5 (6.4-8.2) gm/dl Albumin 1.1 L (3.4-5.0) gm/dl 10/17/18 10/17/18 10/17/18 Range/Units 04:09 04:03 02:05 WBC 15.27 H (4.8-10.8) K/uL RBC 2.92 L (4.2-5.4) M/uL Hgb 7.8 L (12.0-16.0) g/dL Hct 23.0 L (37-47) % MCV 78.8 L (80-100) fL MCH 26.7 (25-34) pg MCHC 33.9 (32-36) g/dL RDW Std Deviation 44.1 (36.4-46.3) fL RDW Coeff of Clay 15.3 H (11.5-14.5) % Plt Count 255 (130-400) K/uL MPV 9.7 (7.4-10.4) fL Sodium (136-145) mmol/L Potassium (3.5-5.1) mmol/L Chloride (98-107) mmol/L Carbon Dioxide (21-32) mmol/L Anion Gap (3-11) BUN (7-18) mg/dl Creatinine (0.6-1.2) mg/dl Est Cr Clr Drug Dosing ml/min Est GFR ( Amer) Est GFR (Non-Af Amer) BUN/Creatinine Ratio (10-20) Glucose (70-99) mg/dl POC Glucose 140 H 148 H (70-99) Calcium (8.5-10.1) mg/dl Phosphorus (2.5-4.9) mg/dl Magnesium (1.8-2.4) mg/dl Total Bilirubin (0.2-1) mg/dl Direct Bilirubin (0-0.2) mg/dl AST (15-37) U/L ALT (12-78) U/L Alkaline Phosphatase (45-117) U/L Total Protein (6.4-8.2) gm/dl Albumin (3.4-5.0) gm/dl 10/17/18 10/17/18 10/16/18 Range/Units 00:59 00:17 23:02 WBC (4.8-10.8) K/uL RBC (4.2-5.4) M/uL Hgb (12.0-16.0) g/dL Hct (37-47) % MCV (80-100) fL MCH (25-34) pg MCHC (32-36) g/dL RDW Std Deviation (36.4-46.3) fL RDW Coeff of Clay (11.5-14.5) % Plt Count (130-400) K/uL MPV (7.4-10.4) fL Sodium (136-145) mmol/L Potassium (3.5-5.1) mmol/L Chloride (98-107) mmol/L Carbon Dioxide (21-32) mmol/L Anion Gap (3-11) BUN (7-18) mg/dl Creatinine (0.6-1.2) mg/dl Est Cr Clr Drug Dosing ml/min Est GFR ( Amer) Est GFR (Non-Af Amer) BUN/Creatinine Ratio (10-20) Glucose (70-99) mg/dl POC Glucose 171 H 166 H 154 H (70-99) Calcium (8.5-10.1) mg/dl Phosphorus (2.5-4.9) mg/dl Magnesium (1.8-2.4) mg/dl Total Bilirubin (0.2-1) mg/dl Direct Bilirubin (0-0.2) mg/dl AST (15-37) U/L ALT (12-78) U/L Alkaline Phosphatase (45-117) U/L Total Protein (6.4-8.2) gm/dl Albumin (3.4-5.0) gm/dl 10/16/18 10/16/18 10/16/18 Range/Units 22:04 21:08 20:22 WBC (4.8-10.8) K/uL RBC (4.2-5.4) M/uL Hgb (12.0-16.0) g/dL Hct (37-47) % MCV (80-100) fL MCH (25-34) pg MCHC (32-36) g/dL RDW Std Deviation (36.4-46.3) fL RDW Coeff of Clay (11.5-14.5) % Plt Count (130-400) K/uL MPV (7.4-10.4) fL Sodium (136-145) mmol/L Potassium (3.5-5.1) mmol/L Chloride (98-107) mmol/L Carbon Dioxide (21-32) mmol/L Anion Gap (3-11) BUN (7-18) mg/dl Creatinine (0.6-1.2) mg/dl Est Cr Clr Drug Dosing ml/min Est GFR ( Amer) Est GFR (Non-Af Amer) BUN/Creatinine Ratio (10-20) Glucose (70-99) mg/dl POC Glucose 168 H 203 H 179 H (70-99) Calcium (8.5-10.1) mg/dl Phosphorus (2.5-4.9) mg/dl Magnesium (1.8-2.4) mg/dl Total Bilirubin (0.2-1) mg/dl Direct Bilirubin (0-0.2) mg/dl AST (15-37) U/L ALT (12-78) U/L Alkaline Phosphatase (45-117) U/L Total Protein (6.4-8.2) gm/dl Albumin (3.4-5.0) gm/dl 10/16/18 10/16/18 10/16/18 Range/Units 19:06 18:02 17:07 WBC (4.8-10.8) K/uL RBC (4.2-5.4) M/uL Hgb (12.0-16.0) g/dL Hct (37-47) % MCV (80-100) fL MCH (25-34) pg MCHC (32-36) g/dL RDW Std Deviation (36.4-46.3) fL RDW Coeff of Clay (11.5-14.5) % Plt Count (130-400) K/uL MPV (7.4-10.4) fL Sodium (136-145) mmol/L Potassium (3.5-5.1) mmol/L Chloride (98-107) mmol/L Carbon Dioxide (21-32) mmol/L Anion Gap (3-11) BUN (7-18) mg/dl Creatinine (0.6-1.2) mg/dl Est Cr Clr Drug Dosing ml/min Est GFR ( Amer) Est GFR (Non-Af Amer) BUN/Creatinine Ratio (10-20) Glucose (70-99) mg/dl POC Glucose 108 H 107 H 106 H (70-99) Calcium (8.5-10.1) mg/dl Phosphorus (2.5-4.9) mg/dl Magnesium (1.8-2.4) mg/dl Total Bilirubin (0.2-1) mg/dl Direct Bilirubin (0-0.2) mg/dl AST (15-37) U/L ALT (12-78) U/L Alkaline Phosphatase (45-117) U/L Total Protein (6.4-8.2) gm/dl Albumin (3.4-5.0) gm/dl 10/16/18 10/16/18 10/16/18 Range/Units 16:14 14:15 13:12 WBC (4.8-10.8) K/uL RBC (4.2-5.4) M/uL Hgb (12.0-16.0) g/dL Hct (37-47) % MCV (80-100) fL MCH (25-34) pg MCHC (32-36) g/dL RDW Std Deviation (36.4-46.3) fL RDW Coeff of Clay (11.5-14.5) % Plt Count (130-400) K/uL MPV (7.4-10.4) fL Sodium (136-145) mmol/L Potassium (3.5-5.1) mmol/L Chloride (98-107) mmol/L Carbon Dioxide (21-32) mmol/L Anion Gap (3-11) BUN (7-18) mg/dl Creatinine (0.6-1.2) mg/dl Est Cr Clr Drug Dosing ml/min Est GFR ( Amer) Est GFR (Non-Af Amer) BUN/Creatinine Ratio (10-20) Glucose (70-99) mg/dl POC Glucose 116 H 143 H 155 H (70-99) Calcium (8.5-10.1) mg/dl Phosphorus (2.5-4.9) mg/dl Magnesium (1.8-2.4) mg/dl Total Bilirubin (0.2-1) mg/dl Direct Bilirubin (0-0.2) mg/dl AST (15-37) U/L ALT (12-78) U/L Alkaline Phosphatase (45-117) U/L Total Protein (6.4-8.2) gm/dl Albumin (3.4-5.0) gm/dl 10/16/18 10/16/18 10/16/18 Range/Units 12:23 11:10 10:04 WBC (4.8-10.8) K/uL RBC (4.2-5.4) M/uL Hgb (12.0-16.0) g/dL Hct (37-47) % MCV (80-100) fL MCH (25-34) pg MCHC (32-36) g/dL RDW Std Deviation (36.4-46.3) fL RDW Coeff of Clay (11.5-14.5) % Plt Count (130-400) K/uL MPV (7.4-10.4) fL Sodium (136-145) mmol/L Potassium (3.5-5.1) mmol/L Chloride (98-107) mmol/L Carbon Dioxide (21-32) mmol/L Anion Gap (3-11) BUN (7-18) mg/dl Creatinine (0.6-1.2) mg/dl Est Cr Clr Drug Dosing ml/min Est GFR ( Amer) Est GFR (Non-Af Amer) BUN/Creatinine Ratio (10-20) Glucose (70-99) mg/dl POC Glucose 166 H 151 H 112 H (70-99) Calcium (8.5-10.1) mg/dl Phosphorus (2.5-4.9) mg/dl Magnesium (1.8-2.4) mg/dl Total Bilirubin (0.2-1) mg/dl Direct Bilirubin (0-0.2) mg/dl AST (15-37) U/L ALT (12-78) U/L Alkaline Phosphatase (45-117) U/L Total Protein (6.4-8.2) gm/dl Albumin (3.4-5.0) gm/dl 10/16/18 Range/Units 09:06 WBC (4.8-10.8) K/uL RBC (4.2-5.4) M/uL Hgb (12.0-16.0) g/dL Hct (37-47) % MCV (80-100) fL MCH (25-34) pg MCHC (32-36) g/dL RDW Std Deviation (36.4-46.3) fL RDW Coeff of Clay (11.5-14.5) % Plt Count (130-400) K/uL MPV (7.4-10.4) fL Sodium (136-145) mmol/L Potassium (3.5-5.1) mmol/L Chloride (98-107) mmol/L Carbon Dioxide (21-32) mmol/L Anion Gap (3-11) BUN (7-18) mg/dl Creatinine (0.6-1.2) mg/dl Est Cr Clr Drug Dosing ml/min Est GFR ( Amer) Est GFR (Non-Af Amer) BUN/Creatinine Ratio (10-20) Glucose (70-99) mg/dl POC Glucose 113 H (70-99) Calcium (8.5-10.1) mg/dl Phosphorus (2.5-4.9) mg/dl Magnesium (1.8-2.4) mg/dl Total Bilirubin (0.2-1) mg/dl Direct Bilirubin (0-0.2) mg/dl AST (15-37) U/L ALT (12-78) U/L Alkaline Phosphatase (45-117) U/L Total Protein (6.4-8.2) gm/dl Albumin (3.4-5.0) gm/dl
[2018-10-17] MEDS: METOPROLOL TARTRATE 25 MG TAB PO SCH ×2 (08:00→20:13)
[2018-10-17] MEDS: NYSTATIN SUSP 500,000 U/5 ML UDC PO SCH ×4 (08:01→20:13)
[2018-10-17] MEDS: CHOLECALCIFEROL 1,000 UNITS TAB PO SCH (08:02)
[2018-10-17] MEDS: ERGOCALCIFEROL 50,000 UNITS CAP PO SCH (08:02)
[2018-10-17] MEDS: PANTOprazole 40 MG in SYRINGE 0 ML IV SCH (08:05)
[2018-10-17] MEDS: OXYCODONE HCL 10 MG TABCR (OXYCONTIN) PO SCH ×2 (08:05→20:15)
[2018-10-17] MEDS: INSULIN ASPART 100 UNITS/ML 3 ML PEN SC SCH ×4 (08:20→20:13)
--- NOTE | 2018-10-17 09:01 | Nephrology Progress Note ---
Date of Service October 17, 2018 Assessment & Plan (1) Acute kidney injury: 37 year old white female w/ IDDM & h/o IVDA presents with DKA, MRSA sepsis, endocarditis and KAREN. KAREN is likely multifactoral including dehydration at time of admission, sepsis and recent Vancomycin administration. Patient is now oliguric w/ volume overload requiring mechanical ventilation. She requires pressor support and has multiple electrolyte abnomalities. -- plan for dialysis today for 4 hours, UF as tolerated, aim for 3 L --request vascular sx to place TDC and remove temporary line. -- Monitor PRP Will follow Subjective Princess was seen and examined this morning. She is is awake, alert. Tolerating diet. Urine output slightly improved Electrolyte acceptable. Volume status seems to have improved significantly. Physical Exam 2 Vital Signs (Past 24 Hours): Last Vital Signs Temp 36.6 C 10/17/18 04:01 Pulse 105 H 10/17/18 05:01 Resp 18 10/17/18 02:01 BP 152/113 H 10/17/18 05:01 Pulse Ox 95 10/17/18 05:01 Constitutional: + ill appearing Respiratory: Auscultation: + crackles Cardiovascular: RRR, no murmur, no edema (Generalized edema) Extremities: + edema Gastrointestinal (Abdomen): Inspection/Auscultation: normal bowel sounds Neurologic: moves all extremities and awake Psychiatric: Orientation: alert and oriented x 3 Insight: good insight Judgement: good judgement
[2018-10-17] MEDS ORDERED: METOPROLOL TARTRATE 25 MG TAB PO ONE (09:45)
[2018-10-17] MEDS ORDERED: FUROSEMIDE 80 MG in SYRINGE 0 ML IV ONE (10:00)
--- NOTE | 2018-10-17 10:01 | Nephrology Progress Note ---
Date of Service October 17, 2018 Assessment & Plan (1) Acute kidney injury: 37 year old white female w/ IDDM & h/o IVDA presents with DKA, MRSA sepsis, endocarditis and KAREN. KAREN is likely multifactoral including dehydration at time of admission, sepsis and recent Vancomycin administration. Patient is now oliguric w/ volume overload requiring mechanical ventilation. She requires pressor support and has multiple electrolyte abnomalities. -- suggest Lasix 120 milligram IV x1 dose, if urine output improve and electrolyte remain acceptable will keep her off of dialysis and tentatively plan for removing at dialysis catheter in next 1-2 days -- Monitor PRP Will follow Subjective Princess was seen and examined this morning. She is is awake, alert. Tolerating diet. Urine output slightly improved Electrolyte acceptable. Volume status seems to have improved significantly. Physical Exam 2 Vital Signs (Past 24 Hours): Last Vital Signs Temp 36.5 C 10/17/18 08:00 Pulse 114 H 10/17/18 09:00 Resp 43 H 10/17/18 09:00 BP 111/83 10/17/18 08:53 Pulse Ox 93 10/17/18 09:00 Constitutional: + ill appearing Respiratory: Auscultation: + crackles Cardiovascular: RRR, no murmur, no edema (Generalized edema) Extremities: + edema Gastrointestinal (Abdomen): Inspection/Auscultation: normal bowel sounds Neurologic: moves all extremities and awake Psychiatric: Orientation: alert and oriented x 3 Insight: good insight Judgement: good judgement
[2018-10-17] MEDS: CEFTAROLINE FOSAMIL ACETATE 200 MG in SODIUM CHLORIDE 0.9% 250 ML IV SCH ×2 (10:06→21:38)
[2018-10-17] MEDS ORDERED: DC IV INSULIN INFUSION 1 EA DEVI ONE (10:09)
[2018-10-17] MEDS ORDERED: INSULIN GLARGINE SOLOSTAR 100 UNITS/ML 3 ML PEN SC ONE (10:30)
--- NOTE | 2018-10-17 14:27 | Pharmacy Report ---
PHA: Glycemic Control AP - Date of Service October 17, 2018 - Assessment & Plan The patient will be transitioned off the insulin drip. Patient was stable on insulin drip for past 12 hours at ~1.6 units/hr while receiving a diet. Will extrapolate this to a estimated total daily dose of ~38 units basal and bolus. Will give a slightly higher first dose to try and assist with drip transition. * Basal insulin: Lantus 15 units X 1 then per scale this evening (5 or 10 units based on BSG) * Correctional Insulin: Novolog Correction per scale ACHS and 0000,0400 Goal Range: Low 120 mg/dL - High 150 mg/dL Correction Factor: 40 mg/dL/unit * Prandial insulin: Per carb ratio of 1 unit per 14 grams CHO consumed Pharmacy will continue to monitor patient daily and write orders per [facility] inpatient glycemic control protocol. Thanks. * Please note that the plan above was derived based on current level of insulin resistance and hospital stress. These recommendations are appropriate for inpatient admission only. Plan of care upon discharge will need to be reassessed to avoid potential outpatient hypo/hyperglycemia.
[2018-10-17] MEDS: DAPTOmycin 450 MG in SYRINGE 0 ML IV SCH (16:01)
[2018-10-17] MEDS: rifAMPin 600 MG in DEXTROSE 5% 500 ML IV SCH (16:03)
[2018-10-17] MEDS: INSULIN REGULAR 250 UNITS in SODIUM CHLORIDE 0.9% 247.5 ML IV SCH (16:30)
--- NOTE | 2018-10-17 16:45 | Family Medicine Progress Note ---
Date of Service October 17, 2018 Assessment & Plan (1) MRSA (methicillin resistant Staphylococcus aureus) septicemia: Princess is a 37-year-old female with a past medical history of IV drug abuse and type 1 diabetes who presented with polyuria and extremity pain and who was admitted for DKA and whose hospital stay has been complicated by MRSA septicemia with tricuspid vegetation on echo. She developed acute renal failure and required dialysis today. She required pressor support and intubation and was transferred for ICU care. Transferred back to PCU on 2017 after extubation and pressor wean. Sepsis with shock sec to MRSA bacteremia from infective endocarditis �Blood cultures positive for MRSA �Borderline sensitivity to vancomycin with CHELSEA = 2 �ID consulted, based on her development of acute kidney failure and borderline sensitivity to vancomycin recommended switch to ceftaroline + rifampin. �Ceftaroline 200 mg twice daily plus rifampin 600 mg daily. - Daptomycin added for improved coverage despite poor lung penetration �Echo shows tricuspid valve endocarditis, See below �Septic emboli to lungs, shoulder, and rest �Currently off norepinephrine pressor support, normotensive. - Pending transfer to PICU Tricuspid valve endocarditis �MRSA septicemia as above �Treatment with ceftaroline + rifampin + dapto as above - TV vegetation could continue to seed BC+ for an extended period of time, Repeat echo so it was a large greater than 2 cm vegetation without secondary vegetations. She has increased morbidity and mortality, and is at a higher risk of treatment failure based on vegetation size. Acute hypoxic respiratory failure �In the setting of multiple septic emboli �Currently extubated, O2S 93% on 2L. - Afebrile and normotensive, by tachypnic and tachycardic this afternoon. Although she has good MRSA coverage with dapto, this would not cover any smoldering lung infection 2/2 septic emboli. CXR yesterday showed persistent bilateral parenchymal infiltrative changes and unchanged LLL consolidative changes. Acute renal failure �Multifactorial. Contributing elements include DKA, prerenal, sepsis, and vancomycin. �Undergoing dialysis. Previously anuric, currently oliguric with UOP .19ml/kg/ hr today (517cc total) �Nephrology following. Recommened x1 lasix dose, received 80mg IV this morning. If UOP and [E] improve can keep her off dialysis and plan to remove catheter over next day or two. �2.7L diasylate removed today T2DM - Glucose checks AC/HS - Daily BMP, SG - SSI correction 40mg/dl/unit, 1:14 Carb Ratio - SG 138 this morning HTN - Metoprolol Tartrate 25mg BID - Hold for BP systolic < 100, HR<60. 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 W � Oxycodone LA 10mg PO BID � Oxycodone IR 5mg Q6H C[facility]O IV drug abuse �History of injecting buprenorphine. �Will require counseling and possible rehab on discharge Diet: Tolerating PO well, T1 Diabetic Diet DVT Prophylaxsis: On heparin 5,000U Q8H (2) Acute kidney failure: (3) Right shoulder pain: (4) Wrist pain, left: (5) Aspiration into airway: (6) Hyperglycemia: (7) Hyponatremia: (8) DVT prophylaxis: Supervising Physician Co-Signing Physician Notes Resident Physician Supervision Note: I independently interviewed and examined the patient and verified the cotton history and physical, reviewed labs and image studies, discussed the case with the resident Dr. Hayes and agree with the findings and care plan. Subjective Tearful during exam. Endorses pain in her wrist, shoulder, lower back. She is slightly short of breath, on oxymask at time of visit. No chest pain. mild headache bilateral, frontal. She is concerned how long it will take her to get better. Able to eat breakfast today. No nausea/vomiting/diarrhea. Physical Exam 2 Vital Signs (Past 24 Hours): Last Vital Signs Temp 36.6 C 10/17/18 12:00 Pulse 97 H 10/17/18 14:00 Resp 28 H 10/17/18 14:00 BP 125/71 10/17/18 14:00 Pulse Ox 93 10/17/18 14:00 Physical Exam: General: A&Ox3. NAD. Cooperative. HEENT: Atraumatic, normocephalic. Pulm: Moderate air movement, some rhonchi, otherwise CTAB A&P. Symmetrical chest rise. No increase work of breathing. No respiratory distress. On oxymask @ 4L. Cardiac: RRR, -mrg. Radial pulses intact and symmetrical. Extremities: Generalized edema in legs, hands bilaterally. Results & Data Laboratory Results Abnormal lab results 10/16/18 10/16/18 10/16/18 Range/Units 18:02 19:06 20:22 WBC (4.8-10.8) K/uL RBC (4.2-5.4) M/uL Hgb (12.0-16.0) g/dL Hct (37-47) % MCV (80-100) fL RDW Coeff of Clay (11.5-14.5) % Sodium (136-145) mmol/L Potassium (3.5-5.1) mmol/L Chloride (98-107) mmol/L Creatinine (0.6-1.2) mg/dl BUN/Creatinine Ratio (10-20) Glucose (70-99) mg/dl POC Glucose 107 H 108 H 179 H (70-99) Calcium (8.5-10.1) mg/dl Direct Bilirubin (0-0.2) mg/dl AST (15-37) U/L ALT (12-78) U/L Alkaline Phosphatase (45-117) U/L Albumin (3.4-5.0) gm/dl 10/16/18 10/16/18 10/16/18 Range/Units 21:08 22:04 23:02 WBC (4.8-10.8) K/uL RBC (4.2-5.4) M/uL Hgb (12.0-16.0) g/dL Hct (37-47) % MCV (80-100) fL RDW Coeff of Clay (11.5-14.5) % Sodium (136-145) mmol/L Potassium (3.5-5.1) mmol/L Chloride (98-107) mmol/L Creatinine (0.6-1.2) mg/dl BUN/Creatinine Ratio (10-20) Glucose (70-99) mg/dl POC Glucose 203 H 168 H 154 H (70-99) Calcium (8.5-10.1) mg/dl Direct Bilirubin (0-0.2) mg/dl AST (15-37) U/L ALT (12-78) U/L Alkaline Phosphatase (45-117) U/L Albumin (3.4-5.0) gm/dl 10/17/18 10/17/18 10/17/18 Range/Units 00:17 00:59 02:05 WBC (4.8-10.8) K/uL RBC (4.2-5.4) M/uL Hgb (12.0-16.0) g/dL Hct (37-47) % MCV (80-100) fL RDW Coeff of Clay (11.5-14.5) % Sodium (136-145) mmol/L Potassium (3.5-5.1) mmol/L Chloride (98-107) mmol/L Creatinine (0.6-1.2) mg/dl BUN/Creatinine Ratio (10-20) Glucose (70-99) mg/dl POC Glucose 166 H 171 H 148 H (70-99) Calcium (8.5-10.1) mg/dl Direct Bilirubin (0-0.2) mg/dl AST (15-37) U/L ALT (12-78) U/L Alkaline Phosphatase (45-117) U/L Albumin (3.4-5.0) gm/dl 10/17/18 10/17/18 10/17/18 Range/Units 04:03 04:09 04:09 WBC 15.27 H (4.8-10.8) K/uL RBC 2.92 L (4.2-5.4) M/uL Hgb 7.8 L (12.0-16.0) g/dL Hct 23.0 L (37-47) % MCV 78.8 L (80-100) fL RDW Coeff of Clay 15.3 H (11.5-14.5) % Sodium (136-145) mmol/L Potassium (3.5-5.1) mmol/L Chloride (98-107) mmol/L Creatinine (0.6-1.2) mg/dl BUN/Creatinine Ratio (10-20) Glucose (70-99) mg/dl POC Glucose 140 H (70-99) Calcium (8.5-10.1) mg/dl Direct Bilirubin 0.5 H (0-0.2) mg/dl AST 13 L (15-37) U/L ALT < 6 L (12-78) U/L Alkaline Phosphatase 156 H (45-117) U/L Albumin 1.1 L (3.4-5.0) gm/dl 10/17/18 10/17/18 10/17/18 Range/Units 04:09 06:14 07:58 WBC (4.8-10.8) K/uL RBC (4.2-5.4) M/uL Hgb (12.0-16.0) g/dL Hct (37-47) % MCV (80-100) fL RDW Coeff of Clay (11.5-14.5) % Sodium 128 L (136-145) mmol/L Potassium 3.1 L (3.5-5.1) mmol/L Chloride 95 L (98-107) mmol/L Creatinine 1.28 H D (0.6-1.2) mg/dl BUN/Creatinine Ratio 6.7 L (10-20) Glucose 138 H (70-99) mg/dl POC Glucose 121 H 120 H (70-99) Calcium 7.0 L (8.5-10.1) mg/dl Direct Bilirubin (0-0.2) mg/dl AST (15-37) U/L ALT (12-78) U/L Alkaline Phosphatase (45-117) U/L Albumin (3.4-5.0) gm/dl 10/17/18 10/17/18 Range/Units 11:35 16:36 WBC (4.8-10.8) K/uL RBC (4.2-5.4) M/uL Hgb (12.0-16.0) g/dL Hct (37-47) % MCV (80-100) fL RDW Coeff of Clay (11.5-14.5) % Sodium (136-145) mmol/L Potassium (3.5-5.1) mmol/L Chloride (98-107) mmol/L Creatinine (0.6-1.2) mg/dl BUN/Creatinine Ratio (10-20) Glucose (70-99) mg/dl POC Glucose 180 H 147 H (70-99) Calcium (8.5-10.1) mg/dl Direct Bilirubin (0-0.2) mg/dl AST (15-37) U/L ALT (12-78) U/L Alkaline Phosphatase (45-117) U/L Albumin (3.4-5.0) gm/dl Medications Administered Current Inpatient Medications Acetaminophen (Tylenol) 650 mg PO Q4H PRN PRN Reason: Pain or Fever Stop: 11/06/18 14:59 Acetaminophen (Ofirmev) 1,000 mg IV Q8H PRN PRN Reason: Fever Stop: 11/06/18 22:51 Last Admin: 10/12/18 00:18 Dose: 1,000 mg Dextrose (Dextrose 50%) 25 - 50 ml IV UD PRN; Protocol PRN Reason: Hypoglycemia Protocol Stop: 11/06/18 21:31 Last Admin: 10/08/18 21:11 Dose: 25 ml Ergocalciferol (Vitamin D2) 50,000 units PO Q7D [facility] Stop: 11/09/18 08:59 Last Admin: 10/17/18 08:02 Dose: 50,000 units Glucagon (Glucagen) 1 mg IM UD PRN; Protocol PRN Reason: Hypoglycemia Protocol Stop: 11/06/18 21:31 Glucose (Glucose 40%) 15 - 30 gm PO UD PRN; Protocol PRN Reason: Hypoglycemia Protocol Stop: 11/06/18 21:31 Glucose (Dex4 Glucose) 4 - 8 tabs PO UD PRN; Protocol PRN Reason: Hypoglycemia Protocol Stop: 11/06/18 21:31 Heparin Sodium (Porcine) (Heparin Sodium (Porcine)) 5,000 units SQ Q8 [facility] Stop: 11/13/18 13:59 Last Admin: 10/17/18 12:54 Dose: 5,000 units Ceftaroline Fosamil 200 mg/ (Sodium Chloride) 256.6667 mls @ 270 mls/hr IV Q12H [facility]; Protocol Stop: 10/25/18 13:59 Last Infusion: 10/17/18 11:05 Dose: Infused Rifampin 600 mg/ Dextrose 510 mls @ 167 mls/hr IV DAILY@1700 [facility] Stop: 11/24/18 16:59 Last Admin: 10/17/18 16:03 Dose: 167 mls/hr Daptomycin 450 mg/ Syringe 9 mls @ 0 mls/min IV Q48H [facility]; Protocol Stop: 10/29/18 15:29 Last Admin: 10/17/18 16:01 Dose: 9 mls/min Insulin Aspart (Novolog Flexpen) 0 units SC ACHS [facility] Stop: 11/16/18 16:29 Last Admin: 10/17/18 16:49 Dose: 4 units Insulin Aspart (Novolog Flexpen) 0 units SC 0000,0400 [facility] Stop: 10/18/18 04:01 Insulin Glargine (Lantus Solostar Pen) 0 units SC BID [facility]; Protocol Stop: 11/16/18 20:59 Ioversol (Optiray 320 125ml) 94 ml IV ONCE PRN PRN Reason: Interaction Checking Stop: 10/18/18 13:59 Last Admin: 10/14/18 14:02 Dose: 94 ml Lactulose (Chronulac) 30 gm PO Q8H PRN PRN Reason: Constipation Stop: 11/11/18 09:32 Last Admin: 10/13/18 08:57 Dose: 30 gm Metoprolol Tartrate (Lopressor) 25 mg PO BID [facility] Stop: 11/16/18 20:59 Miscellaneous (Carbohydrates For Hypoglycemia) 15 - 30 gm PO UD PRN PRN Reason: Hypoglycemia Treatment Stop: 11/06/18 21:31 Miscellaneous (Pending Order) 1 ea N/A QAM [facility] Stop: 11/17/18 08:59 Miscellaneous Information (Consult Glycemic Management Pharmacy) 1 ea N/A UD PRN PRN Reason: Consult Stop: 11/06/18 21:38 Miscellaneous Information () 1 ea N/A UD PRN PRN Reason: Consult Stop: 11/09/18 11:14 Naloxone HCl (Narcan) 0.2 mg IV PRN PRN PRN Reason: OVER Sedation Stop: 11/15/18 09:57 Nystatin (Mycostatin) 5 ml PO QID [facility] Stop: 10/19/18 12:59 Last Admin: 10/17/18 16:02 Dose: 5 ml Ondansetron HCl (Zofran) 4 mg IV Q6H PRN PRN Reason: Nausea Stop: 11/06/18 14:59 Oxycodone HCl (Oxycontin) 10 mg PO BID [facility] Stop: 10/30/18 09:59 Last Admin: 10/17/18 08:05 Dose: 10 mg Oxycodone HCl (Roxicodone) 5 mg PO Q6H [facility] Stop: 10/30/18 09:59 Last Admin: 10/17/18 16:00 Dose: 5 mg Polyethylene Glycol (Miralax Powder Packet) 17 gm PO DAILY PRN PRN Reason: Constipation Stop: 11/06/18 14:59 Vitamin D (Vitamin D3) 2,000 units PO QAM [facility] Stop: 11/09/18 08:59 Last Admin: 10/17/18 08:02 Dose: 2,000 units Resident Activity Tracking Resident Involvement: Resident Care Provided Care Provided: Adult [facility] _ (1) Aspiration into airway Encounter type: initial encounter Qualified Code(s): T17.908A - Unspecified foreign body in respiratory tract, part unspecified causing other injury, initial encounter
[2018-10-17] MEDS: INSULIN GLARGINE SOLOSTAR 100 UNITS/ML 3 ML PEN SC SCH (20:14)
[2018-10-18] MEDS: VANCOMYCIN HCL 125 MG/2.5ML SOLN PO SCH ×4 (00:12→19:13)
[2018-10-18] MEDS: RASPBERRY SYRUP 5 ML UDP PO SCH ×4 (00:12→19:13)
[2018-10-18] MEDS: INSULIN ASPART 100 UNITS/ML 3 ML PEN SC SCH ×6 (00:12→21:10)
[2018-10-18] MEDS: OXYCODONE HCL SOLN 5 MG/5 ML UDC PO SCH ×3 (03:19→15:45)
[2018-10-18 04:59] LABS: BUN Creatinine Ratio 8.2 (10-20); Calcium 7.3 mg/dl (8.5-10.1); Creatinine Clr Calc Pharmacy 50.1 ml/min; Est GFR (African American) 48.7; Magnesium 1.9 mg/dl (1.8-2.4); Phosphorus 3.1 mg/dl (2.5-4.9); Potassium 3.1 mmol/L (3.5-5.1)
[2018-10-18] MEDS: HEPARIN SOD 5,000 UNIT/0.5 ML VIAL SQ SCH ×3 (06:15→21:13)
[2018-10-18] MEDS: INSULIN GLARGINE SOLOSTAR 100 UNITS/ML 3 ML PEN SC SCH ×2 (09:24→21:09)
[2018-10-18] MEDS: METOPROLOL TARTRATE 25 MG TAB PO SCH ×2 (09:25→21:10)
[2018-10-18] MEDS: CHOLECALCIFEROL 1,000 UNITS TAB PO SCH (09:26)
[2018-10-18] MEDS: NYSTATIN SUSP 500,000 U/5 ML UDC PO SCH ×4 (09:26→21:10)
[2018-10-18] MEDS: OXYCODONE HCL 10 MG TABCR (OXYCONTIN) PO SCH ×2 (09:27→21:10)
[2018-10-18] MEDS ORDERED: POTASSIUM CHLORIDE 20 MEQ TABCR PO STA (09:43)
[2018-10-18] MEDS ORDERED: FUROSEMIDE 120 MG in SYRINGE 0 ML IV ONE (10:00)
[2018-10-18] MEDS: CEFTAROLINE FOSAMIL ACETATE 200 MG in SODIUM CHLORIDE 0.9% 250 ML IV SCH ×2 (10:45→21:14)
[2018-10-18] MEDS ORDERED: INSULIN GLARGINE SOLOSTAR 100 UNITS/ML 3 ML PEN SC ONE (11:45)
--- NOTE | 2018-10-18 13:07 | Pharmacy Report ---
Pharmacy Glycemic Short Note 2 - Date of Service October 18, 2018 - Glycemic Short BSG Results (Last 24 hours): 10/17/18 10/17/18 10/18/18 16:36 20:10 00:07 Glucose POC Glucose 147 H 212 H 178 H 10/18/18 10/18/18 10/18/18 03:22 04:23 07:32 Glucose 131 H POC Glucose 136 H 182 H 10/18/18 11:35 Glucose POC Glucose 215 H OUTPATIENT ANTIDIABETIC REGIMEN: * Basaglar 32 units QAM * Novolog - dose unknown * A1c = 12.7% 10/07/18 The patient is currently receiving: * Basal insulin: Lantus SC 5 or 10 units per scale * Correctional Insulin: Novolog Correction per scale ACHS Goal Range: Low 120-150 mg/dL Correction Factor: 40 mg/dL/unit * Prandial insulin: Per carb ratio of 1 unit per 14 grams CHO consumed ASSESSMENT: 10/18 * Patient transitioned off of drip ans was started on lantus sliding scale BID * AM BSG 182- will slightly increase scale for this evening * Lunch BSG elevated 215- conservative CF and CR currently ordered from previous needs- will tighten * 10/13/18 * BSGs now at goal * D10 @30cc/hr initiated yesterday afternoon in order to allow for continue source of CHO which allows for continued basal insulin admin in T1DM * Plan to resume a higher dose of Lantus today as D10 to continue. Dose will be split BID to allow for greater dosing flexibility * Pt remains intubated, sedated, and of pressors at this time. * If pt's clinical status changes substantially, would recommend IV insulin ifusion 10/12/18 * BSGs trending lower over the last 24 hrs. * Mild hypoglycemia noted this AM (BSG 67-71) with 22 units of Lantus on board * Pt remains intubated, sedated and requiring pressors (Norepi) * I suspect yesterday's HD session led to improved insulin sensitivity today * BSGs probably trending lower due to NPO status as well. Discussed need for IVF's containing dextrose vs enteral feedings w/ [employer] to allow for continued basal insulin administration in a type 1 diabetic. * Will hold Lantus dose this AM until some form of CHO provision implemented. 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 She is basal insulin deficient. Will titrate basal insulin dose upwards today. * Additional correctional insulin will be needed until basal deficiency corrected * NEW events: pt will begin dialysis today - which often leads to improved insulin sensitivity PLAN FOR INPATIENT GLYCEMIC CONTROL: * Basal insulin- * Resume Lantus * If BSG <120: 5 units * BSG 120-250: 10 units * BSG >250: 15 units * Bolus insulin- tighten * NovoLog per scale Q4hrs while NPO * Goal Range: Low 120 mg/dL - High 150 mg/dL * Correction Factor: 30 mg/dL/unit * Nutritional / Prandial insulin per carb ratio of 1 unit per 10 grams CHO consumed
--- NOTE | 2018-10-18 13:53 | Nephrology Progress Note ---
Date of Service October 18, 2018 Assessment & Plan (1) Acute kidney injury: 37 year old white female w/ IDDM & h/o IVDA presents with DKA, MRSA sepsis, endocarditis and KAREN. KAREN is likely multifactoral including dehydration at time of admission, sepsis and recent Vancomycin administration. She requires pressor support and has multiple electrolyte abnomalities. Extubated, Received HD, renal function and volume status improved. -- Lasix 120 milligram IV x1 dose --KCL 40 meq x 1 dose -- hopefully pt will not need any more dialysis, suggest removal of HD catheter today. -- Monitor PRP Will follow Subjective Princess was seen and examined this morning. She is is awake, alert. Tolerating diet. Urine output slightly improved Electrolyte acceptable. Volume status seems to have improved significantly. Physical Exam 2 Vital Signs (Past 24 Hours): Last Vital Signs Temp 36.9 C 10/18/18 13:44 Pulse 99 H 10/18/18 13:44 Resp 16 10/18/18 13:44 BP 141/88 H 10/18/18 13:44 Pulse Ox 93 10/18/18 13:44 Constitutional: + ill appearing Respiratory: Auscultation: + crackles Cardiovascular: RRR, no murmur, no edema (Generalized edema) Extremities: + edema Gastrointestinal (Abdomen): Inspection/Auscultation: normal bowel sounds Neurologic: moves all extremities and awake Psychiatric: Orientation: alert and oriented x 3 Insight: good insight Judgement: good judgement
[2018-10-18] MEDS: ACETAMINOPHEN 325 MG TAB PO PRN (14:32)
[2018-10-18] MEDS: rifAMPin 600 MG in DEXTROSE 5% 500 ML IV SCH (18:39)
--- NOTE | 2018-10-18 19:27 | Family Medicine Progress Note ---
Date of Service October 18, 2018 Assessment & Plan (1) MRSA (methicillin resistant Staphylococcus aureus) septicemia: Princess is a 37-year-old female with a past medical history of IV drug abuse and type 1 diabetes who presented with polyuria and extremity pain and who was admitted for DKA and whose hospital stay has been complicated by MRSA septicemia with tricuspid vegetation on echo. She developed acute renal failure and required dialysis today. She required pressor support and intubation and was transferred for ICU care. Transferred back to PCU on 2017 after extubation and pressor wean. Sepsis with shock sec to MRSA bacteremia from infective endocarditis � Required ICU admit with pressor support, now downgraded to PCU -Blood cultures positive for MRSA �Borderline sensitivity to vancomycin with CHELSEA = 2 �ID consulted, based on her development of acute kidney failure and borderline sensitivity to vancomycin recommended switch to ceftaroline + rifampin. �Ceftaroline 200 mg twice daily plus rifampin 600 mg daily. - Daptomycin added for improved coverage �Echo shows tricuspid valve endocarditis, See below �Septic emboli to lungs, shoulder, and rest Tricuspid valve endocarditis �MRSA septicemia as above �Treatment with ceftaroline + rifampin + dapto as above - TV vegetation could continue to seed BC+ for an extended period of time, Repeat echo so it was a large greater than 2 cm vegetation without secondary vegetations. She has increased morbidity and mortality, and is at a higher risk of treatment failure based on vegetation size. Acute hypoxic respiratory failure �In the setting of multiple septic emboli �Currently extubated, O2S 91% on 2L. - Afebrile and normotensive, by tachypnic and tachycardic this afternoon. Continue abx Acute renal failure, improving �Multifactorial. Contributing elements include DKA, prerenal, sepsis, and vancomycin. �Undergoing dialysis. Previously anuric, requiring HD �Nephrology following. Given lasix 120mg challenge with good UOP today (1.2L) � Cr 1.59 from 1.2 - If UOP continues to be adequate remove HD catheter today/tomorrow. T2DM - Glucose checks AC/HS - Daily BMP, SG - SSI correction 40mg/dl/unit, 1:14 Carb Ratio - SG 131 this morning HTN - Metoprolol Tartrate 25mg BID - Hold for BP systolic < 100, HR<60. 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 W � Oxycodone LA 10mg PO BID � Oxycodone IR 5mg Q6H [facility] - Consider inclusion of suboxone tx if established with provider (see below) IV drug abuse �History of injecting buprenorphine. �Will require counseling and possible rehab on discharge - She has a history of multiple subutex providers, and reports she doesn't remember who has been filling recently and that she has gone to multiple in the area relying on whoever is cheapest. Reports she was switched from suboxone to subutex due to nausea. Given her history and very high risk of repeat drug abuse the subutex is a poor choice. Methadone is also not a good option, and feel that she is at a very high risk of overdose. She expressed to case management that she has been to inpt rehab, but will need to work on d/c or may lose her mortgage and hopes to get a job with outpt counseling. May have family she can stay with, but notes her mother is not the best influence. See case mngmt 10/18/18 note. CYS is also involved, she is aware she will likely not have unsupervised visits with her children after d.c. She has a substantial amount of social stressors in addition to a difficulty medical recovery. The setting of her treatment, and above medical care, is difficult. Given her severe infection she will need IV antibiotics for a prolonged period of time, but this also increases her risk of relapse. Ideally, I think suboxone would be good choice although she would need to be connected to a provider in addition to substance abuse treatment. Tentatively would suggest identifying a suboxone provider and if she is able to be seen shortly after d/c converting her V[employer] C[employer] ASSOCIATE subutex dose to suboxone with close followup and titration is reasonable. Discussed with case mngmt today. Diet: Tolerating PO well, T1 Diabetic Diet DVT Prophylaxsis: On heparin 5,000U Q8H (2) Acute kidney failure: (3) Right shoulder pain: (4) Wrist pain, left: (5) Aspiration into airway: (6) Hyperglycemia: (7) Hyponatremia: (8) DVT prophylaxis: Supervising Physician Co-Signing Physician Notes Resident Physician Supervision Note: I independently interviewed and examined the patient and verified the cotton history and physical, reviewed labs and image studies, discussed the case with the resident Dr. Hayes and agree with the findings and care plan. Subjective Princess reports she feels mostly the same today as yesterday. Endorses some shortness of breath, chest tightness, shoulder pain, wrist pain, and general achiness the same today as yesterday. Her appetite is okay, denies nausea, vomiting, diarrhea, constipation. Suboxone, Subutex, and drug abuse history discussed. She intends to remain abstinent on discharge, but also identifies multiple social stressors including concern over being able to pay her mortgage and see her children. Review of Systems See HPI Physical Exam 2 Vital Signs (Past 24 Hours): Last Vital Signs Temp 36.7 C 10/18/18 14:58 Pulse 107 H 10/18/18 14:58 Resp 18 10/18/18 14:58 BP 132/86 10/18/18 14:58 Pulse Ox 90 10/18/18 14:58 Physical Exam: General: A&Ox3. NAD. Cooperative. HEENT: Atraumatic, normocephalic. Pulm: Moderate air movement, no rales/rhonchi appreciated. CTAB A&P. Symmetrical chest rise. No increase work of breathing. No respiratory distress. On oxymask @ 4L. Cardiac: RRR, -mrg. Radial pulses intact and symmetrical. Extremities: Generalized edema in legs, hands bilaterally. Resident Activity Tracking Resident Involvement: Resident Care Provided Care Provided: Adult [facility] _ (1) Aspiration into airway Encounter type: initial encounter Qualified Code(s): T17.908A - Unspecified foreign body in respiratory tract, part unspecified causing other injury, initial encounter
[2018-10-19] MEDS ORDERED: INSULIN ASPART 100 UNITS/ML 3 ML PEN SC SCH ×2
[2018-10-19] MEDS: VANCOMYCIN HCL 125 MG/2.5ML SOLN PO SCH ×5 (00:01→23:52)
[2018-10-19] MEDS: OXYCODONE HCL SOLN 5 MG/5 ML UDC PO SCH ×4 (03:26→22:04)
[2018-10-19] MEDS: HEPARIN SOD 5,000 UNIT/0.5 ML VIAL SQ SCH ×3 (05:45→20:49)
[2018-10-19] MEDS: RASPBERRY SYRUP 5 ML UDP PO SCH ×5 (05:45→23:52)
[2018-10-19 06:57] LABS: Albumin Level 1.3 gm/dl (3.4-5.0); BUN Creatinine Ratio 10.1 (10-20); Calcium 7.6 mg/dl (8.5-10.1); Creatinine Clr Calc Pharmacy 52.8 ml/min; Est GFR (African American) 49.8; Phosphorus 3.6 mg/dl (2.5-4.9); Potassium 3.7 mmol/L (3.5-5.1)
[2018-10-19] MEDS: METOPROLOL TARTRATE 25 MG TAB PO SCH ×2 (08:04→20:42)
[2018-10-19] MEDS: OXYCODONE HCL 10 MG TABCR (OXYCONTIN) PO SCH ×2 (08:05→20:41)
[2018-10-19] MEDS: INSULIN GLARGINE SOLOSTAR 100 UNITS/ML 3 ML PEN SC SCH ×2 (08:05→20:47)
[2018-10-19] MEDS: CHOLECALCIFEROL 1,000 UNITS TAB PO SCH (08:05)
[2018-10-19] MEDS: NYSTATIN SUSP 500,000 U/5 ML UDC PO SCH (08:05)
[2018-10-19] MEDS: INSULIN ASPART 100 UNITS/ML 3 ML PEN SC SCH ×4 (08:07→20:48)
[2018-10-19] MEDS ORDERED: INFLUENZA VIRUS QUAD VACCINE 0.5 ML SYR IM ONE (08:45)
[2018-10-19] MEDS: CEFTAROLINE FOSAMIL ACETATE 200 MG in SODIUM CHLORIDE 0.9% 250 ML IV SCH (09:28)
[2018-10-19] MEDS ORDERED: INSULIN GLARGINE SOLOSTAR 100 UNITS/ML 3 ML PEN SC STA (10:20)
--- NOTE | 2018-10-19 10:50 | Nephrology Progress Note ---
Date of Service October 19, 2018 Assessment & Plan (1) Acute kidney injury: 37 year old white female w/ IDDM & h/o IVDA presents with DKA, MRSA sepsis, endocarditis and KAREN. KAREN was likely multifactoral including dehydration at time of admission, sepsis and recent Vancomycin administration. Patient required initiation of HD for volume & electrolyte management. She is now nonoliguric and appears to have recovered kidney function -- Volume status and electrolyte balance are acceptable at this time. Patient has been off HD x 2 days now. Will continue to monitor -- Will ask Critical Care to remove IJ dialysis catheter -- Recheck CBC, PRP in am Subjective Princess was seen and examined in her hospital room this morning. She reports brisk UO and would like to have her temporary dialysis catheter removed to allow her to shower. Physical Exam 2 Vital Signs (Past 24 Hours): Last Vital Signs Temp 37.1 C 10/19/18 07:30 Pulse 111 H 10/19/18 07:30 Resp 20 10/19/18 07:30 BP 159/92 H 10/19/18 07:30 Pulse Ox 93 10/19/18 07:30 Eyes: PERRL, conjunctivae normal, anicteric sclerae Neck: R IJ HD catheter w/ clean dry dressing Respiratory: Auscultation: lungs clear to auscultation bilaterally Cardiovascular: Rate/Rhythm: regular rate and regular rhythm Heart Sounds: no murmur and no cardiac rub Extremities: no edema Gastrointestinal (Abdomen): normal bowel sounds, soft, nontender, no hepatosplenomegaly Results & Data Laboratory Results Laboratory Tests 10/17/18 10/19/18 04:09 05:48 WBC 15.27 H Hgb 7.8 L Hct 23.0 L Plt Count 255 Sodium 130 L Potassium 3.7 D Chloride 96 L Carbon Dioxide 24 BUN 16 Creatinine 1.54 H Glucose 153 H Calcium 7.6 L
[2018-10-19] MEDS: DAPTOmycin 450 MG in SYRINGE 0 ML IV SCH (15:43)
--- NOTE | 2018-10-19 15:44 | Procedure Note ---
Procedure Note Date of Service October 19, 2018 Note Procedure name: Removal of temporary dialysis catheter Date of procedure: October 19, 2018 Time of procedure: 15:20 Provider: Margarito Nicholson PA-C Contraindications: None Narrative: I was asked to remove the temporary dialysis catheter from the patient's right internal jugular by Dr. Mckeon.Patient was seen in room 215 and isolation procedures were followed. Dressing was removed and surface of skin was cleansed around dialysis catheter in the right internal jugular.2 sutures were easily removed.The catheter was easily removed and direct pressure was applied for 10 minutes. A dry gauze was then Secured in place. There was no bleeding. There is no evidence of hematoma at the removal site at the completion of applied pressure. Patient was instructed to leave the dressing in place for 24 hours.She was also instructed to keep it dry and not to shower and wash her hair until after dressing was removed. Patient tolerated the procedure well.
[2018-10-19] MEDS: rifAMPin 600 MG in DEXTROSE 5% 500 ML IV SCH (18:47)
--- NOTE | 2018-10-19 19:02 | Family Medicine Progress Note ---
Addendum entered and electronically signed by Julissa Choudhury MD 10/19/18 21: 43: Addendum (Blank) Addendum October 19, 2018 21:42 For Insomnia/Anxiety- Pt started on Trazadone 50mg daily with hydralazine PRN for breakthrough insomnia. Original Note: Date of Service October 19, 2018 Assessment & Plan (1) MRSA (methicillin resistant Staphylococcus aureus) septicemia: Princess is a 37-year-old female with a past medical history of IV drug abuse and type 1 diabetes with resolved DKA and MRSA endocarditis with septicemia. Infective endocarditis -Repeat echo today, awaiting official read. �On Ceftaroline (dose INCREASED today) plus rifampin 600 mg daily. - Daptomycin added for improved coverage despite poor lung penetration Acute hypoxic respiratory failure �In the setting of multiple septic emboli �O2S >90% currently. Continue to wean as tolerated. -tachycardia and hypertension likely related. Acute renal failure, improving -likely secondary to septic picture. T2DM - Glucose checks AC/HS - Daily BMP, SG - SSI correction 40mg/dl/unit, 1:14 Carb Ratio HTN - Metoprolol Tartrate 25mg BID - Hold for BP systolic < 100, HR<60. Bacteruria (resolved) - UA Positive for bacteria and nitrites, UC shows minimal growth and is likely contaminant versus mild kami in the setting of stasis DKA (resolved) �Blood sugar 1220 on admission �Treated with DKA protocol on admit Multifocal pain �Multiple septic emboli - History of buprenorphine tx (8mg BID [employer] dose), hx of IVDA of buprenorphine. � Oxycodone LA 10mg PO BID � Oxycodone IR 5mg Q6H [facility] - Consider inclusion of suboxone tx if established with provider IV drug abuse �History of injecting buprenorphine. �Will require counseling and possible rehab on discharge Diet: Tolerating PO well, T1 Diabetic Diet DVT Prophylaxsis: On heparin 5,000U Q8H (2) Acute kidney failure: (3) Right shoulder pain: (4) Wrist pain, left: (5) Aspiration into airway: (6) Hyperglycemia: (7) Hyponatremia: (8) DVT prophylaxis: Supervising Physician Co-Signing Physician Notes I personally examined the patient and verified all cotton points of history and exam, discussed case, and agree with decision making with Dr Choudhury. Feeling very anxious and restless, notes that she has not slept well in days. Is asking for something to help her sleep tonight. Also complains of swelling in her legs. Vitals noted, in general she is awake alert oriented x3 sitting up appearing anxious and fatigued but in no significant physical distress. HEENT normocephalic atraumatic mucous membranes are moist. Lungs are unlabored no accessory muscle use good effort. Skin shows no rashes, pallor, or icterus, she does have diffuse edema most pronounced in bilateral lower extremities. Neuro shows no focal deficits. MRSA endocarditis, with septic emboli to lungs, concern on wrist and shoulder infection -Repeat blood cultures, continue current antibiotic coverage given that she has been persistently bacteremic -Repeat echocardiogram to evaluate for size of vegetation and integrity of valve -Continue supportive care -Likely will want to pursue CT abdomen pelvis, and MRI brain, to look for any other downstream effects of the infection Insomnia -She notes this relates to anxiety, we will give trial to trazodone Edema -Third spacing of fluids given for resuscitation. Compression, and movement. DVT prophylaxis -Heparin subcu Subjective Ms. Katz states that she did not get a good night's sleep, is feeling anxious and would like to have the central line out so she could take a shower. Constitutional: + body aches Psychiatric: + anxiety Physical Exam 2 Vital Signs (Past 24 Hours): Last Vital Signs Temp 36.6 C 10/19/18 17:00 Pulse 103 H 10/19/18 17:00 Resp 24 10/19/18 17:00 BP 136/83 10/19/18 17:00 Pulse Ox 98 10/19/18 17:00 General: Alert, oriented. HEENT: NC/AT, oropharynx moist. CV: RRR, no murmurs appreciated especially in triscupid area. Resp: Breath sounds clear bilaterally, no increased effort of breathing Abdomen: Nondistended Extremities: Non pitting edema in both extremities bilaterally. Results & Data Laboratory Results Laboratory Results - last 24 hr 10/18/18 10/19/18 10/19/18 20:40 05:48 07:20 Sodium 130 L Potassium 3.7 D Chloride 96 L Carbon Dioxide 24 Anion Gap 10.0 BUN 16 Creatinine 1.54 H Est Cr Clr Drug Dosing 52.8 Est GFR ( Amer) 49.8 Est GFR (Non-Af Amer) 43.0 BUN/Creatinine Ratio 10.1 Glucose 153 H POC Glucose 288 H 172 H Calcium 7.6 L Phosphorus 3.6 Albumin 1.3 L 10/19/18 10/19/18 11:19 16:22 Sodium Potassium Chloride Carbon Dioxide Anion Gap BUN Creatinine Est Cr Clr Drug Dosing Est GFR ( Amer) Est GFR (Non-Af Amer) BUN/Creatinine Ratio Glucose POC Glucose 240 H 98 Calcium Phosphorus Albumin Medications Administered Home Medications buprenorphine HCl 8 mg SUBLINGUAL BID 10/07/18 [History Confirmed 10/07/18] insulin aspart U-100 [Novolog Flexpen U-100 Insulin] 1 dose SUBCUT DIRECTED 10/07/18 [History Confirmed 10/07/18] insulin glargine [Basaglar KwikPen U-100 Insulin] 32 units SUBCUT QAM 10/07/18 [ History Confirmed 10/07/18] Active Medications Acetaminophen (Tylenol) 650 mg PO Q4H PRN PRN Reason: Pain or Fever Stop: 11/06/18 14:59 Last Admin: 10/18/18 14:32 Dose: 650 mg Acetaminophen (Ofirmev) 1,000 mg IV Q8H PRN PRN Reason: Fever Stop: 11/06/18 22:51 Last Admin: 10/12/18 00:18 Dose: 1,000 mg Dextrose (Dextrose 50%) 25 - 50 ml IV UD PRN; Protocol PRN Reason: Hypoglycemia Protocol Stop: 11/06/18 21:31 Last Admin: 10/08/18 21:11 Dose: 25 ml Ergocalciferol (Vitamin D2) 50,000 units PO Q7D [facility] Stop: 11/09/18 08:59 Last Admin: 10/17/18 08:02 Dose: 50,000 units Glucagon (Glucagen) 1 mg IM UD PRN; Protocol PRN Reason: Hypoglycemia Protocol Stop: 11/06/18 21:31 Glucose (Glucose 40%) 15 - 30 gm PO UD PRN; Protocol PRN Reason: Hypoglycemia Protocol Stop: 11/06/18 21:31 Glucose (Dex4 Glucose) 4 - 8 tabs PO UD PRN; Protocol PRN Reason: Hypoglycemia Protocol Stop: 11/06/18 21:31 Heparin Sodium (Porcine) (Heparin Sodium (Porcine)) 5,000 units SQ Q8 [facility] Stop: 11/13/18 13:59 Last Admin: 10/19/18 15:40 Dose: 5,000 units Hydroxyzine HCl (Vistaril) 25 mg PO HS PRN PRN Reason: breakthrough insomnia Stop: 11/18/18 15:03 Rifampin 600 mg/ Dextrose 510 mls @ 167 mls/hr IV DAILY@1700 [facility] Stop: 11/24/18 16:59 Last Admin: 10/19/18 18:47 Dose: 167 mls/hr Daptomycin 450 mg/ Syringe 9 mls @ 0 mls/min IV Q48H [facility]; Protocol Stop: 10/29/18 15:29 Last Admin: 10/19/18 15:43 Dose: 50 mls/min Ceftaroline Fosamil 400 mg/ (Sodium Chloride) 263.3333 mls @ 270 mls/hr IV Q12H [facility]; Protocol Stop: 10/25/18 21:59 Insulin Aspart (Novolog Flexpen) 0 units SC ACHS [facility] Stop: 11/16/18 16:29 Last Admin: 10/19/18 18:46 Dose: 2 units Insulin Glargine (Lantus Solostar Pen) 0 units SC BID [facility]; Protocol Stop: 11/16/18 20:59 Last Admin: 10/19/18 08:05 Dose: 10 units Lactulose (Chronulac) 30 gm PO Q8H PRN PRN Reason: Constipation Stop: 11/11/18 09:32 Last Admin: 10/13/18 08:57 Dose: 30 gm Metoprolol Tartrate (Lopressor) 25 mg PO BID [facility] Stop: 11/16/18 20:59 Last Admin: 10/19/18 08:04 Dose: 25 mg Miscellaneous (Carbohydrates For Hypoglycemia) 15 - 30 gm PO UD PRN PRN Reason: Hypoglycemia Treatment Stop: 11/06/18 21:31 Miscellaneous Information (Consult Glycemic Management Pharmacy) 1 ea N/A UD PRN PRN Reason: Consult Stop: 11/06/18 21:38 Miscellaneous Information () 1 ea N/A UD PRN PRN Reason: Consult Stop: 11/09/18 11:14 Naloxone HCl (Narcan) 0.2 mg IV PRN PRN PRN Reason: OVER Sedation Stop: 11/15/18 09:57 Ondansetron HCl (Zofran) 4 mg IV Q6H PRN PRN Reason: Nausea Stop: 11/06/18 14:59 Oxycodone HCl (Oxycontin) 10 mg PO BID [facility] Stop: 10/30/18 09:59 Last Admin: 10/19/18 08:05 Dose: 10 mg Oxycodone HCl (Roxicodone) 5 mg PO Q6H [facility] Stop: 10/30/18 09:59 Last Admin: 10/19/18 15:47 Dose: 5 mg Polyethylene Glycol (Miralax Powder Packet) 17 gm PO DAILY PRN PRN Reason: Constipation Stop: 11/06/18 14:59 Raspberry (Raspberry) 5 ml PO Q6 [facility] Stop: 11/01/18 00:00 Last Admin: 10/19/18 18:46 Dose: 5 ml Trazodone HCl (Desyrel) 50 mg PO DAILY [facility] Stop: 11/18/18 18:59 Vancomycin HCl (Vancomycin Hcl) 125 mg PO Q6 [facility] Stop: 10/28/18 00:00 Last Admin: 10/19/18 18:47 Dose: 125 mg Vitamin D (Vitamin D3) 2,000 units PO QAM [facility] Stop: 11/09/18 08:59 Last Admin: 10/19/18 08:05 Dose: 2,000 units Resident Activity Tracking Resident Involvement: Resident Care Provided Care Provided: [facility] _ (1) Aspiration into airway Encounter type: initial encounter Qualified Code(s): T17.908A - Unspecified foreign body in respiratory tract, part unspecified causing other injury, initial encounter
[2018-10-19] MEDS: TRAZODONE HCL 50 MG TAB PO SCH (20:10)
[2018-10-19] MEDS: CEFTAROLINE FOSAMIL ACETATE 400 MG in SODIUM CHLORIDE 0.9% 250 ML IV SCH (22:04)
[2018-10-19] MEDS: ACETAMINOPHEN 325 MG TAB PO PRN (23:50)
[2018-10-20] MEDS: OXYCODONE HCL SOLN 5 MG/5 ML UDC PO SCH ×4 (03:59→22:01)
[2018-10-20] MEDS: ACETAMINOPHEN 325 MG TAB PO PRN ×3 (03:59→18:05)
[2018-10-20] MEDS: HEPARIN SOD 5,000 UNIT/0.5 ML VIAL SQ SCH ×2 (05:47→14:25)
[2018-10-20] MEDS: RASPBERRY SYRUP 5 ML UDP PO SCH ×4 (05:48→23:40)
[2018-10-20] MEDS: VANCOMYCIN HCL 125 MG/2.5ML SOLN PO SCH ×4 (05:48→23:40)
[2018-10-20 06:27] LABS: Hematocrit (blood only) 20.1 % (37-47); Hemoglobin 6.6 g/dL (12.0-16.0); Mean Corpuscular Hgb Conc 32.8 g/dL (32-36); Mean Platelet Volume 8.9 fL (7.4-10.4); Platelet Count 308 K/uL (130-400); RDW Coefficient of Variation 16.7 % (11.5-14.5); RDW Standard Deviation 47.9 fL (36.4-46.3); Red Blood Count 2.45 M/uL (4.2-5.4); White Blood Count 12.21 K/uL (4.8-10.8)
[2018-10-20 06:40] LABS: BUN Creatinine Ratio 11.8 (10-20); Calcium 7.6 mg/dl (8.5-10.1); Creatinine Clr Calc Pharmacy 56.1 ml/min; Est GFR (African American) 53.6; Est GFR (Non-African American) 46.2; Potassium 3.8 mmol/L (3.5-5.1)
[2018-10-20] MEDS ORDERED: DAPTOmycin 450 MG in SYRINGE 0 ML IV STA (07:39)
[2018-10-20] MEDS ORDERED: DAPTOMYCIN CONSULT ACTIVE PRN (08:00)
[2018-10-20] MEDS: CHOLECALCIFEROL 1,000 UNITS TAB PO SCH (08:27)
[2018-10-20] MEDS: METOPROLOL TARTRATE 25 MG TAB PO SCH ×2 (08:28→21:16)
[2018-10-20] MEDS: TRAZODONE HCL 50 MG TAB PO SCH (08:28)
[2018-10-20] MEDS: OXYCODONE HCL 10 MG TABCR (OXYCONTIN) PO SCH ×2 (08:28→21:13)
[2018-10-20] MEDS: INSULIN ASPART 100 UNITS/ML 3 ML PEN SC SCH ×4 (08:28→21:14)
[2018-10-20] MEDS: INSULIN GLARGINE SOLOSTAR 100 UNITS/ML 3 ML PEN SC SCH ×2 (08:29→21:15)
--- NOTE | 2018-10-20 09:17 | Family Medicine Progress Note ---
Date of Service October 20, 2018 Assessment & Plan (1) MRSA (methicillin resistant Staphylococcus aureus) septicemia: Princess is a 37-year-old female with a past medical history of IV drug abuse and type 1 diabetes with resolved DKA being currently managed for MRSA endocarditis with septicemia. Infective endocarditis -Repeat echo with trapped vegetations, minimal to no TR, pleural effusions. �On Ceftaroline (dose INCREASED by pharm) plus rifampin 600 mg daily. - Daptomycin added for improved coverage despite poor lung penetration Acute hypoxic respiratory failure �In the setting of multiple septic emboli -Dips to 80s w/o oxygen, consult placed to surgery for thoracentesis given pleural effusions noted on echo. -tachycardia and hypertension likely related. Anxiety/Insomnia -Trazadone decreased today to 25mg from 50mg started yesterday as pt was too somnolent -D/C Vesteril -Assess effect in AM after trazadone. ANEMIA -H/H dropped to 6.6/20.1 today. Repeat of 7.4. So likely lab error. -Workup of fecal occult blood (Neg), peripheral smear (pending) for hemolytic anemia seen in context of infective endocarditis -Also possible component of blood loss due to removal of central line yesterday. Acute renal failure, improving -likely secondary to septic picture. T2DM - Glucose checks AC/HS - Daily BMP, SG - SSI correction 40mg/dl/unit, 1:14 Carb Ratio HTN - Metoprolol Tartrate 25mg BID - Hold for BP systolic < 100, HR<60. Bacteruria (resolved) - UA Positive for bacteria and nitrites, UC shows minimal growth and is likely contaminant versus mild kami in the setting of stasis DKA (resolved) �Blood sugar 1220 on admission �Treated with DKA protocol on admit Multifocal pain �Multiple septic emboli - History of buprenorphine tx (8mg BID [employer] dose), hx of IVDA of buprenorphine. � Oxycodone LA 10mg PO BID � Oxycodone IR 5mg Q6H [facility] - Consider inclusion of suboxone tx if established with provider IV drug abuse �History of injecting buprenorphine. �Will require counseling and possible rehab on discharge Diet: Tolerating PO well, T1 Diabetic Diet DVT Prophylaxsis: On heparin 5,000U Q8H (2) Acute kidney failure: (3) Right shoulder pain: (4) Wrist pain, left: (5) Aspiration into airway: (6) Hyperglycemia: (7) Hyponatremia: (8) DVT prophylaxis: Supervising Physician Co-Signing Physician Notes I personally examined the patient and verified all cotton points of history and exam, discussed case, and agree with decision making with Dr Choudhury. She ended up quite sedated from the trazodone. She is now awake and interactive though, which is much improved from this morning. She is mostly complaining of significant shortness of breath, as well as significant anxiety Vitals noted, in general she is awake alert oriented x3 sitting up appearing anxious and fatigued but in no significant physical distress. HEENT normocephalic atraumatic mucous membranes are moist. Lungs tachypneic, clear on the right, diminished from about mid lung down on the left. Skin shows no rashes, pallor, or icterus, she does have diffuse edema most pronounced in bilateral lower extremities. Neuro shows no focal deficits. Anxious mood and affect MRSA endocarditis, with septic emboli to lungs, concern on wrist and shoulder infection -Repeat blood cultures negative thus far, continue current antibiotic coverage given that she has been persistently bacteremic -Repeat echocardiogram shows an ongoing quite large vegetation, but good valve integrity, will ask infectious disease for further thoughts on ongoing antibiotics versus repeat discussion with surgery, but if her repeat blood cultures are negative, ongoing medical management appears reasonable at this point given that she is improving -Continue supportive care -Likely will want to pursue CT abdomen pelvis, and MRI brain, to look for any other downstream effects of the infection Anemia�no signs of acute blood loss, no hemodynamic instability. Follow closely , workup as above. For now hold subcu heparin until the root cause of the anemia becomes more clear Insomnia -She was surprisingly sedated with the trazodone, reduce the dose, DC the Atarax. Edema -Third spacing of fluids given for resuscitation. Compression, and movement. DVT prophylaxis -Heparin subcu (temporarily on hold as above) Subjective Was sleeping this morning, unarousable. However, upon return a few hours later stated she had some SOB. Still felt anxious. Physical Exam 2 Vital Signs (Past 24 Hours): Last Vital Signs Temp 36.7 C 10/20/18 08:00 Pulse 95 H 10/20/18 08:00 Resp 22 10/20/18 08:00 BP 133/83 10/20/18 08:00 Pulse Ox 93 10/20/18 08:00 General: NC in nose, anxious HEENT: NC/AT, oropharynx moist. CV: RRR, no murmurs appreciated especially in triscupid area. Resp: Breath sounds clear on right, decreased on the left. increased work of breathing Abdomen: Distended Extremities: Non pitting edema/swelling in both extremities bilaterally. Results & Data Laboratory Results Laboratory Results - last 24 hr 10/19/18 10/19/18 10/20/18 16:22 20:17 05:52 WBC 12.21 H RBC 2.45 L Hgb 6.6 L* Hct 20.1 L* MCV 82.0 MCH 26.9 MCHC 32.8 RDW Std Deviation 47.9 H RDW Coeff of Clay 16.7 H Plt Count 308 MPV 8.9 Sodium Potassium Chloride Carbon Dioxide Anion Gap BUN Creatinine Est Cr Clr Drug Dosing Est GFR ( Amer) Est GFR (Non-Af Amer) BUN/Creatinine Ratio Glucose POC Glucose 98 214 H Calcium Stool Occult Bld Scrn Blood Type Antibody Screen Crossmatch 10/20/18 10/20/18 10/20/18 05:52 07:19 09:49 WBC RBC Hgb 7.4 L Hct MCV MCH MCHC RDW Std Deviation RDW Coeff of Clay Plt Count MPV Sodium 130 L Potassium 3.8 Chloride 97 L Carbon Dioxide 25 Anion Gap 7.0 BUN 17 Creatinine 1.45 H Est Cr Clr Drug Dosing 56.1 Est GFR ( Amer) 53.6 Est GFR (Non-Af Amer) 46.2 BUN/Creatinine Ratio 11.8 Glucose 156 H POC Glucose 154 H Calcium 7.6 L Stool Occult Bld Scrn Blood Type Antibody Screen Crossmatch 10/20/18 10/20/18 10/20/18 09:49 11:19 11:35 WBC RBC Hgb Hct MCV MCH MCHC RDW Std Deviation RDW Coeff of Clay Plt Count MPV Sodium Potassium Chloride Carbon Dioxide Anion Gap BUN Creatinine Est Cr Clr Drug Dosing Est GFR ( Amer) Est GFR (Non-Af Amer) BUN/Creatinine Ratio Glucose POC Glucose 140 H Calcium Stool Occult Bld Scrn Negative Blood Type O Positive Antibody Screen NEGATIVE Crossmatch See Detail Medications Administered Home Medications buprenorphine HCl 8 mg SUBLINGUAL BID 10/07/18 [History Confirmed 10/07/18] insulin aspart U-100 [Novolog Flexpen U-100 Insulin] 1 dose SUBCUT DIRECTED 10/07/18 [History Confirmed 10/07/18] insulin glargine [Basaglar KwikPen U-100 Insulin] 32 units SUBCUT QAM 10/07/18 [ History Confirmed 10/07/18] Active Medications Acetaminophen (Tylenol) 650 mg PO Q4H PRN PRN Reason: Pain or Fever Stop: 11/06/18 14:59 Last Admin: 10/20/18 03:59 Dose: 650 mg Acetaminophen (Ofirmev) 1,000 mg IV Q8H PRN PRN Reason: Fever Stop: 11/06/18 22:51 Last Admin: 10/12/18 00:18 Dose: 1,000 mg Dextrose (Dextrose 50%) 25 - 50 ml IV UD PRN; Protocol PRN Reason: Hypoglycemia Protocol Stop: 11/06/18 21:31 Last Admin: 10/08/18 21:11 Dose: 25 ml Ergocalciferol (Vitamin D2) 50,000 units PO Q7D [facility] Stop: 11/09/18 08:59 Last Admin: 10/17/18 08:02 Dose: 50,000 units Glucagon (Glucagen) 1 mg IM UD PRN; Protocol PRN Reason: Hypoglycemia Protocol Stop: 11/06/18 21:31 Glucose (Glucose 40%) 15 - 30 gm PO UD PRN; Protocol PRN Reason: Hypoglycemia Protocol Stop: 11/06/18 21:31 Glucose (Dex4 Glucose) 4 - 8 tabs PO UD PRN; Protocol PRN Reason: Hypoglycemia Protocol Stop: 11/06/18 21:31 Heparin Sodium (Porcine) (Heparin Sodium (Porcine)) 5,000 units SQ Q8 [facility] Stop: 11/13/18 13:59 Last Admin: 10/20/18 05:47 Dose: 5,000 units Hydroxyzine HCl (Vistaril) 25 mg PO HS PRN PRN Reason: breakthrough insomnia Stop: 11/18/18 15:03 Last Admin: 10/20/18 00:08 Dose: 25 mg Rifampin 600 mg/ Dextrose 510 mls @ 167 mls/hr IV DAILY@1700 [facility] Stop: 11/24/18 16:59 Last Infusion: 10/19/18 22:11 Dose: Infused Daptomycin 450 mg/ Syringe 9 mls @ 4.5 mls/min IV Q24H [facility]; Protocol Stop: 10/29/18 07:59 Ceftaroline Fosamil 600 mg/ (Sodium Chloride) 270 mls @ 270 mls/hr IV Q12H [facility] ; Protocol Stop: 10/25/18 21:59 Insulin Aspart (Novolog Flexpen) 0 units SC ACHS [facility] Stop: 11/16/18 16:29 Last Admin: 10/20/18 12:09 Dose: 13 units Insulin Glargine (Lantus Solostar Pen) 0 units SC BID [facility]; Protocol Stop: 11/16/18 20:59 Last Admin: 10/20/18 08:29 Dose: 10 units Lactulose (Chronulac) 30 gm PO Q8H PRN PRN Reason: Constipation Stop: 11/11/18 09:32 Last Admin: 10/13/18 08:57 Dose: 30 gm Metoprolol Tartrate (Lopressor) 25 mg PO BID [facility] Stop: 11/16/18 20:59 Last Admin: 10/20/18 08:28 Dose: 25 mg Miscellaneous (Carbohydrates For Hypoglycemia) 15 - 30 gm PO UD PRN PRN Reason: Hypoglycemia Treatment Stop: 11/06/18 21:31 Miscellaneous Information (Consult Glycemic Management Pharmacy) 1 ea N/A UD PRN PRN Reason: Consult Stop: 11/06/18 21:38 Miscellaneous Information () 1 ea N/A UD PRN PRN Reason: Consult Stop: 11/09/18 11:14 Miscellaneous Information (Consult) 1 ea N/A UD PRN PRN Reason: Consult Stop: 11/19/18 07:59 Naloxone HCl (Narcan) 0.2 mg IV PRN PRN PRN Reason: OVER Sedation Stop: 11/15/18 09:57 Ondansetron HCl (Zofran) 4 mg IV Q6H PRN PRN Reason: Nausea Stop: 11/06/18 14:59 Oxycodone HCl (Oxycontin) 10 mg PO BID [facility] Stop: 10/30/18 09:59 Last Admin: 10/20/18 08:28 Dose: 10 mg Oxycodone HCl (Roxicodone) 5 mg PO Q6H [facility] Stop: 10/30/18 09:59 Last Admin: 10/20/18 09:45 Dose: 5 mg Polyethylene Glycol (Miralax Powder Packet) 17 gm PO DAILY PRN PRN Reason: Constipation Stop: 11/06/18 14:59 Raspberry (Raspberry) 5 ml PO Q6 [facility] Stop: 11/01/18 00:00 Last Admin: 10/20/18 11:26 Dose: 5 ml Trazodone HCl (Desyrel) 25 mg PO HS [facility] Stop: 11/19/18 20:59 Vancomycin HCl (Vancomycin Hcl) 125 mg PO Q6 [facility] Stop: 10/28/18 00:00 Last Admin: 10/20/18 11:26 Dose: 125 mg Vitamin D (Vitamin D3) 2,000 units PO QAM [facility] Stop: 11/09/18 08:59 Last Admin: 10/20/18 08:27 Dose: 2,000 units Resident Activity Tracking Resident Involvement: Resident Care Provided Care Provided: Adult [facility] _ (1) Aspiration into airway Encounter type: initial encounter Qualified Code(s): T17.908A - Unspecified foreign body in respiratory tract, part unspecified causing other injury, initial encounter
[2018-10-20] MEDS: CEFTAROLINE FOSAMIL ACETATE 400 MG in SODIUM CHLORIDE 0.9% 250 ML IV SCH (09:45)
--- NOTE | 2018-10-20 10:29 | Nephrology Progress Note ---
Date of Service October 20, 2018 Assessment & Plan (1) Acute kidney injury: 37 year old white female w/ IDDM & h/o IVDA presents with DKA, MRSA sepsis, endocarditis and KAREN. KAREN was likely multifactoral including dehydration at time of admission, sepsis and recent Vancomycin administration. Patient required initiation of HD for volume & electrolyte management. She is now nonoliguric and appears to have recovered kidney function -- Recommend blood transfusion and anemia evaluation for Hgb < 8.0 -- Kidney function is stable at this time. Patient is nonoliguric. Serum sodium is trending upward. Will sign off. Please call if further Nephrology assistance is needed. Helder Sánchez was seen and examined in her hospital room this morning. IJ dialysis catheter has been removed. She denies angina or dyspnea. She reports good urine output. Physical Exam 2 Vital Signs (Past 24 Hours): Last Vital Signs Temp 36.7 C 10/20/18 08:00 Pulse 95 H 10/20/18 08:00 Resp 22 10/20/18 08:00 BP 133/83 10/20/18 08:00 Pulse Ox 93 10/20/18 08:00 Eyes: PERRL, conjunctivae normal, anicteric sclerae Respiratory: Auscultation: lungs clear to auscultation bilaterally Cardiovascular: Rate/Rhythm: regular rate and regular rhythm Heart Sounds: no murmur and no cardiac rub Extremities: no edema Gastrointestinal (Abdomen): normal bowel sounds, soft, nontender, no hepatosplenomegaly Results & Data Laboratory Results Laboratory Tests 10/20/18 10/20/18 05:52 05:52 WBC 12.21 H Hgb 6.6 L* Hct 20.1 L* Plt Count 308 Sodium 130 L Potassium 3.8 Chloride 97 L Carbon Dioxide 25 BUN 17 Creatinine 1.45 H
--- NOTE | 2018-10-20 11:16 | Pharmacy Report ---
Pharmacy Glycemic Short Note 2 - Date of Service October 20, 2018 - Glycemic Short BSG Results (Last 24 hours): 10/19/18 10/19/18 10/19/18 11:19 16:22 20:17 Glucose POC Glucose 240 H 98 214 H 10/20/18 10/20/18 05:52 07:19 Glucose 156 H POC Glucose 154 H ASSESSMENT: 10/20 * BSGs over the previous 24 hrs [id number]/dL. She required 48units yesterday and 50 the day prior. IV Antibx continue. FBS improved this AM , I did adjust her lantus scale for last night: will adjust this scale further for this evening. Please see adjustment detailed below. 10/18 * Patient transitioned off of drip ans was started on lantus sliding scale BID * AM BSG 182- will slightly increase scale for this evening * Lunch BSG elevated 215- conservative CF and CR currently ordered from previous needs- will tighten * 10/13/18 * BSGs now at goal * D10 @30cc/hr initiated yesterday afternoon in order to allow for continue source of CHO which allows for continued basal insulin admin in T1DM * Plan to resume a higher dose of Lantus today as D10 to continue. Dose will be split BID to allow for greater dosing flexibility * Pt remains intubated, sedated, and of pressors at this time. * If pt's clinical status changes substantially, would recommend IV insulin ifusion 10/12/18 * BSGs trending lower over the last 24 hrs. * Mild hypoglycemia noted this AM (BSG 67-71) with 22 units of Lantus on board * Pt remains intubated, sedated and requiring pressors (Norepi) * I suspect yesterday's HD session led to improved insulin sensitivity today * BSGs probably trending lower due to NPO status as well. Discussed need for IVF's containing dextrose vs enteral feedings w/ Microbiology Lab Assistant to allow for continued basal insulin administration in a type 1 diabetic. * Will hold Lantus dose this AM until some form of CHO provision implemented. 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 She is basal insulin deficient. Will titrate basal insulin dose upwards today. * Additional correctional insulin will be needed until basal deficiency corrected * NEW events: pt will begin dialysis today - which often leads to improved insulin sensitivity PLAN FOR INPATIENT GLYCEMIC CONTROL: * Basal insulin- * Resume Lantus * If BSG <120: 5 units * BSG 120-160: 10 units * BSG >160: 15 units * Bolus insulin- tighten * NovoLog per scale Q4hrs while NPO * Goal Range: Low 120 mg/dL - High 150 mg/dL * Correction Factor: 30 mg/dL/unit * Nutritional / Prandial insulin per carb ratio of 1 unit per 10 grams CHO consumed
--- NOTE | 2018-10-20 11:34 | Pharmacy Report ---
Pharmacy Abx Dose Short Note - Date of Service October 20, 2018 - Assessment & Plan Assessment * 37 year old F receiving Teflaro and Daptomycin for treatment of MRSA bacteremia, Endocarditis and Septic joint. * Day #11 of Teflaro therapy. * Renal function has significantly improved over the last 2 days--Scr = 1.54 (), 1.45 (10/20). Plan * Teflaro dosing was increased from 200 mg IV q12h to 400 mg q12h yesterday. * With continued improvement in Scr/Crcl, Teflaro dose was further increased to 600 mg q12h for Crcl above 50 ml/min for 2 days in a row. * Will continue to watch renal function. Pharmacy will continue to follow and will adjust dose/frequency as necessary. Thank you.
--- NOTE | 2018-10-20 12:42 | XRay Report ---
XR chest 1V portable HISTORY: Short of breath. COMPARISON: Chest 10/16/2018. FINDINGS: No pneumothorax. Small right and moderate left pleural effusions have progressed. There is also progressive interstitial vascular thickening consistent with worsening pulmonary edema. The hear t is enlarged. Scattered patchy right lung airspace opacities and a left basilar density are again no jennifer. IMPRESSION: 1. Interval progression of the pulmonary edema and bilateral pleural effusions. 2. Bilateral airspace opacities are again noted. This could be due to the pulmonary edema or superimp osed pneumonia. Electronically signed by: Bc Gage M.D. 10/20/2018 12:41 PM
--- NOTE | 2018-10-20 14:04 | XRay Report ---
XR chest 1V portable HISTORY: S/P Thoracentesis COMPARISON: Chest 10/20/2018. FINDINGS: Decrease in size in the small left pleural effusion status post thoracentesis. No pneumotho rax. Cardiomegaly is again noted. Mild pulmonary edema and bilateral airspace opacities are again not ed. Small right pleural effusion remains unchanged. IMPRESSION: 1. Decrease in size in the small left pleural effusion status post thoracentesis. No pneumothorax. 2. Pulmonary edema and bilateral airspace opacities are again noted. Electronically signed by: Bc Gage M.D. 10/20/2018 2:03 PM
[2018-10-20 14:30] LABS: Mononuclear WBC Pleural 64.4 %; Polynuclear WBC Pleural 35.6 %; RBC Pleural Fluid (A) 39000 /uL; Source Pleural Fluid LEFT LUNG; WBC Pleural Fluid (A) 890 /uL
[2018-10-20 14:40] LABS: Total Protein Pleural Fluid 3.8 g/dl
[2018-10-20] MEDS: rifAMPin 600 MG in DEXTROSE 5% 500 ML IV SCH (17:50)
--- NOTE | 2018-10-20 20:03 | Consultation Report ---
DATE OF CONSULTATION: 10/20/2018 REASON FOR CONSULTATION: Enlarging left pleural effusion. HISTORY OF PRESENT ILLNESS: Princess Katz is a 37-year-old who has used IV heroin and has chronic narcotic abuse who presented with endocarditis with methicillin-resistant Staph aureus. She was quite ill, had kidney failure, was on a ventilator, and has been followed by multiple specialties including critical care, intensive care medicine, family practice, nephrology, and cardiology who was found to have an increasing left pleural effusion. Dr. Carroll Le called and asked if I would consider tapping her for symptomatic relief and diagnoses. PAST MEDICAL HISTORY: 1. Type 1 diabetes mellitus. 2. History of IV drug use. 3. Chronic methicillin-resistant Staph aureus infections. 4. Abscesses of right forearm. 5. Retroperitoneal abscess. 6. Current every day smoker. PAST SURGICAL HISTORY: 3, para 2, abortus 1 (spontaneous). HOME MEDICATIONS: 1. Buprenorphine. 2. Insulin (NovoLog). 3. Insulin (Basaglar). ALLERGIES: 1. IODINE, 2. IODINATED CONTRAST. SOCIAL HISTORY: It is quite a mess right now. She was living with her children, but her children's father is now trying to obtain custody. It is likely the patient will lose her house according to her. She is estranged from her family. Her only blood relative besides her 2 children are her mother. She has no siblings. The patient does smoke every day. She does not use alcohol, but she uses multiple street drugs including methamphetamines, marijuana, and heroin. REVIEW OF SYSTEMS: The patient has continued fevers and chills. She has complains of aching "all over." She has had no change in her vision or her auditory system. She does complain of pharyngeal-type symptoms. She is quite dyspneic but has had no hemoptysis. She has a bit of a dry cough. Complained of abdominal pain and nausea but no vomiting. She denies dysuria. She complains of aches and pains throughout all of her extremities. Apparently, has had some episodes of septic arthritis. She has an abscess in her right forearm. She denies any neurologic events such as amaurosis fugax, transient ischemic attacks, or seizures. PHYSICAL EXAMINATION: GENERAL: This is a 5 foot 4 inch, 192-pound female who is awake, alert, and oriented. She is complaining of marked dyspnea but her saturations on room air are not bad. HEENT: Her pupils are equal, round react. Sclerae are anicteric. She has pale sclerae. She has no icterus. She has some coarse breath sounds bilaterally in her lungs with decreased breath sounds noted markedly in her left foot compared to her right. She has multiple tattoos. NECK: Supple. She has no supraclavicular or cervical lymphadenopathy, neck vein distention, or thyromegaly. HEART: She has a regular rate and rhythm of her heart. I really do not hear a rub or murmur. ABDOMEN: Soft with good bowel sounds. She complained of tenderness, but she complains of tenderness, no matter where I touch her, including putting the ultrasound probe on her back. She currently has no obvious peripheral edema. She has good peripheral pulses. NEUROLOGIC: She is completely intact. ASSESSMENT AND PLAN: Left pleural effusion, which is increasing, which is symptomatic. I am going to perform a thoracentesis today. Her CT scan from several days ago shows homogenous fluid. Certainly, she has many reasons to have a reactive effusion. My hope is that we are not dealing with an empyema. TORRIE
--- NOTE | 2018-10-20 20:04 | Operative Report ---
DATE OF OPERATION: 10/20/2018 PREOPERATIVE DIAGNOSES: 1. Enlarging left pleural effusion. 2. 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 POSTOPERATIVE DIAGNOSES: 1. Enlarging left pleural effusion. 2. 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 PROCEDURE: Left thoracentesis under ultrasound guidance. SURGEON: Rodriguez Nguyen MD FINANCIAL COORDINATOR: None. ANESTHESIA: Local. SPECIFICS OF PROCEDURE: The patient seated up at the side of the bed. Her left chest was evaluated and seen to have a large amount of what appeared to be homogenous effusion. After she had been prepped and draped in usual sterile fashion and appropriate timeout called, a #25-gauge needle was used to raise the skin wheal at this area, which we had marked under ultrasound guidance. I then placed a large bore needle to anesthetize the deeper tissues. We got free flowing fluid. Guidewire was inserted and needle removed. Surgeon site was dilated up just a bit and then a triple lumen catheter was slid in 17 cm until it was fully into the chest and we removed the guidewire. 1600 mL of a rust colored fluid was drained. She had reexpansion pain with coughing. The pH of the fluid was assessed on the ISTAT and was 7.40. It appeared that we got all of the fluid out that as there was some re-expansion pain. I removed the catheter. She really had no bleeding. I placed an antimicrobial dressing over this site. A chest x-ray was performed which shows no evidence of pneumothorax. She still has some opacification of the left base, but I think some of this may be atelectasis. We will see what the study shows on her fluid. She tolerated it very well. I attest to the content of the Intraoperative Record and any orders documented therein. Any exceptions are noted below. YEIMYD
[2018-10-20] MEDS ORDERED: TRAZODONE HCL 50 MG TAB PO SCH ×2 (21:00)
[2018-10-20] MEDS: CEFTAROLINE FOSAMIL ACETATE 600 MG in SODIUM CHLORIDE 0.9% 250 ML IV SCH (22:01)
[2018-10-21] MEDS: ACETAMINOPHEN 325 MG TAB PO PRN ×2 (01:46→06:24)
[2018-10-21] MEDS: OXYCODONE HCL SOLN 5 MG/5 ML UDC PO SCH ×4 (04:33→20:47)
[2018-10-21] MEDS: RASPBERRY SYRUP 5 ML UDP PO SCH ×4 (05:14→23:24)
[2018-10-21] MEDS: VANCOMYCIN HCL 125 MG/2.5ML SOLN PO SCH ×4 (05:14→23:24)
[2018-10-21 06:29] LABS: Hematocrit (blood only) 20.8 % (37-47); Hemoglobin 6.8 g/dL (12.0-16.0); Mean Corpuscular Hgb Conc 32.7 g/dL (32-36); Mean Corpuscular Volume 81.6 fL (80-100); Mean Platelet Volume 9.3 fL (7.4-10.4); Platelet Count 386 K/uL (130-400); RDW Coefficient of Variation 16.7 % (11.5-14.5); RDW Standard Deviation 47.5 fL (36.4-46.3); Red Blood Count 2.55 M/uL (4.2-5.4); White Blood Count 10.56 K/uL (4.8-10.8)
[2018-10-21 06:50] LABS: BUN Creatinine Ratio 12.7 (10-20); Calcium 7.7 mg/dl (8.5-10.1); Est GFR (African American) 61.7; Est GFR (Non-African American) 53.2; Potassium 4.1 mmol/L (3.5-5.1)
[2018-10-21 07:07] LABS: Basophils # (auto) 0.03 K/uL (0-0.2); Basophils % (auto) 0.3 %; Eosinophils # (auto) 0.25 K/uL (0-0.5); Eosinophils % (auto) 2.4 %; Hypochromasia Present; Immature Granulocytes # (auto) 0.14 K/uL (0.00-0.02); Immature Granulocytes % (auto) 1.3 %; Lymphocytes # (auto) 2.27 K/uL (1.2-3.4); Lymphocytes % (auto) 21.5 %; Microcytosis Present; Monocytes # (auto) 0.71 K/uL (0.11-0.59); Monocytes % (auto) 6.7 %; Neutrophils # (auto) 7.16 K/uL (1.4-6.5); Neutrophils % (auto) 67.8 %
[2018-10-21] MEDS: DAPTOmycin 450 MG in SYRINGE 0 ML IV SCH (08:22)
[2018-10-21] MEDS: METOPROLOL TARTRATE 25 MG TAB PO SCH ×2 (08:22→20:38)
[2018-10-21] MEDS: CHOLECALCIFEROL 1,000 UNITS TAB PO SCH (08:23)
[2018-10-21] MEDS: INSULIN GLARGINE SOLOSTAR 100 UNITS/ML 3 ML PEN SC SCH ×2 (08:24→20:50)
[2018-10-21] MEDS: INSULIN ASPART 100 UNITS/ML 3 ML PEN SC SCH ×4 (08:24→20:50)
[2018-10-21] MEDS: OXYCODONE HCL 10 MG TABCR (OXYCONTIN) PO SCH ×2 (08:33→20:47)
--- NOTE | 2018-10-21 09:03 | Surgery Progress Note ---
Date of Service October 21, 2018 Assessment & Plan (1) Pleural effusion: -pt. is s/p left htoracentesis on 10/20/18 -micro is (-) to date) -pathology is peninding -will check repeat CXR today to ensure no fluid has returned Subjective Pt. notes breathing somewhat improved since thoracentesis. She notes some pain at thoracentesis site. Physical Exam 2 Vital Signs (Past 24 Hours): Last Vital Signs Temp 36.6 C 10/21/18 07:57 Pulse 95 H 10/21/18 07:57 Resp 18 10/21/18 07:57 BP 137/86 10/21/18 07:57 Pulse Ox 93 10/21/18 07:57 Constitutional: WD/WN, vitals as above no acute distress Respiratory: Auscultation: lungs clear to auscultation bilaterally Thoracentesis site is clean without signs of infection
--- NOTE | 2018-10-21 09:27 | XRay Report ---
XR chest 1V portable CLINICAL HISTORY: 37 years-old Female presenting with effusion . TECHNIQUE: Portable upright AP view of the chest was obtained. COMPARISON: 10/20/2018 and CTA from 10/14/2018. FINDINGS: Cardiomediastinal silhouette normal. Persistent small right and moderate left pleural effusions, whic h may be loculated. Extensive bibasilar opacities in addition to multifocal nodular and irregular opa cities. No pneumothorax. Osseous structures normal. Upper abdomen normal. IMPRESSION: 1. No significant change in bilateral pleural effusions and extensive bilateral pulmonary infiltrate s. Electronically signed by: Alfredo Ascencio M.D. 10/21/2018 9:26 AM
--- NOTE | 2018-10-21 09:28 | Family Medicine Progress Note ---
Date of Service October 21, 2018 Assessment & Plan (1) MRSA (methicillin resistant Staphylococcus aureus) septicemia: Princess is a 37-year-old female with a past medical history of IV drug abuse and type 1 diabetes with resolved DKA being currently managed for MRSA endocarditis with septicemia. Infective endocarditis -Repeat echo with trapped vegetations, minimal to no TR, pleural effusions. � Ceftaroline + rifampin 600 mg daily. - Daptomycin added for improved coverage despite poor lung penetration Acute hypoxic respiratory failure �In the setting of multiple septic emboli -s/p pleurocentesis, clinically improved -tachycardia and hypertension likely related. Anxiety/Insomnia - Slept poorly overnight -Trazadone 50mg qHS PRN, hopefully will tolerate OK with the visteril held - Held Vesteril Anemia - s/p transfusion of 1 unit with appropriate hgb rise from 6.8 to 7.8 - Fecal occult blood negative - No signs of intravascular hemolysis on smear - Likely in setting of endocarditis and poor nutrtion on a background of repeat phlebomoty Acute renal failure, improving -likely secondary to septic picture. - Continue to follow BMP/Cr/UOP T2DM - Glucose checks AC/HS - Daily BMP, SG - SSI correction 40mg/dl/unit, 1:14 Carb Ratio HTN - Metoprolol Tartrate 25mg BID - Hold for BP systolic < 100, HR<60. Bacteruria (resolved) - UA Positive for bacteria and nitrites, UC shows minimal growth and is likely contaminant versus mild kami in the setting of stasis DKA (resolved) �Blood sugar 1220 on admission �Treated with DKA protocol on admit Multifocal pain �Multiple septic emboli - History of buprenorphine tx (8mg BID TAVERN KEEPER dose), hx of IVDA of buprenorphine. � Oxycodone LA 10mg PO BID � Oxycodone IR 5mg Q6H CANDIDO IV drug abuse �History of injecting buprenorphine. �Will require counseling and possible rehab on discharge Diet: Tolerating PO well, T1 Diabetic Diet DVT Prophylaxsis: On heparin 5,000U Q8H (2) Acute kidney failure: (3) Right shoulder pain: (4) Wrist pain, left: (5) Aspiration into airway: (6) Hyperglycemia: (7) Hyponatremia: (8) DVT prophylaxis: Supervising Physician Co-Signing Physician Notes I personally examined the patient and verified all cotton points of history and exam, discussed case, and agree with decision making with Dr Hayes. She is anxious and restless today. She does not really have physical complaints as much is noting that she feels like she is going crazy, and can take 1 more day in the hospital. She knows she needs to be here to get better, but she is worried about her house worried about her kids, and worried about her life in general moving forward. Infectious disease input appreciated. Vitals noted, in general she is awake alert oriented x3 sitting up appearing anxious and fatigued but in no significant physical distress. HEENT normocephalic atraumatic mucous membranes are moist. Lungs unlabored no accessory muscle use good effort. Skin shows no rashes, no pallor, no icterus. Her edema appears to be slightly improved. MRSA endocarditis, with septic emboli to lungs, concern on wrist and shoulder infection -Repeat blood cultures negative thus far, continue current antibiotic coverage given that she has been persistently bacteremic-possibly candidate for Dalvance in the near future although not entirely clear when it will be safe to transition from her current IV regimen to the Dalvance. -Repeat echocardiogram shows an ongoing quite large vegetation, but good valve integrity, thus far on discussions with cardiothoracic surgery they did not feel that surgery would be of benefit for her. For now continue antibiotics and serial echoes -Continue supportive care -Prior to discharge will want to pursue CT abdomen pelvis, and MRI brain, to look for any other downstream effects of the infection Anemia�no signs of acute blood loss, no hemodynamic instability. Persistently low however. Transfuse 1 unit today given 2 days in a row of a morning reading less than 7. Likely poor p.o. intake/malnutrition combined with iatrogenic from prolonged multiple blood draws while here Insomnia/anxiety -Cautiously increase the trazodone back to 50, continuing to hold off on the Atarax. I tried to provide supportive care and guidance as best as possible Edema -Third spacing of fluids given for resuscitation. Compression, and movement. This appears to be improving DVT prophylaxis -Heparin subcu (temporarily on hold due to above) Subjective Tired this morning. Denies fever, chills, sweats overnight. Thinks her breathign is a little better today. Denies shortnes of breath, chest pain, nausea, vomiting, diarrhea, constipation. No cough/congestion. no rash. Pain the same as yesterday, back and shoulder continue to be achy. She is not sure if she has had blood transfusions before. Slept poorly, didn't feel rested this morning. Review of Systems See HPI Physical Exam 2 Vital Signs (Past 24 Hours): Last Vital Signs Temp 36.6 C 10/21/18 07:57 Pulse 95 H 10/21/18 07:57 Resp 18 10/21/18 07:57 BP 137/86 10/21/18 07:57 Pulse Ox 93 10/21/18 07:57 Physical Exam: General: A&Ox3. NAD. Cooperative. HEENT: Atraumatic, normocephalic. Pulm: Moderate to good air movement. Bibasilar crackles right greater than left , otherwise CTAB A&P. -wheezes, -rhonchi. Symmetrical chest rise. No increase work of breathing. No respiratory distress. Cardiac: RRR, -mrg. Radial pulses intact and symmetrical. Abdominal: Nontender, nondistended, soft. BS present. Extremity: Mild pitting edema present in the lower legs bilaterally. _ (1) Aspiration into airway Encounter type: initial encounter Qualified Code(s): T17.908A - Unspecified foreign body in respiratory tract, part unspecified causing other injury, initial encounter
--- NOTE | 2018-10-21 10:01 | Pharmacy Report ---
PHA: Glycemic Control AP - Date of Service October 21, 2018 - Assessment & Plan Outpatient Anti-diabetic Regimen: * Insulin glargine 32 units qAM * Novolog - unknown dose/schedule * A1c = 12.7 % on 10/07/18 The patient is currently receiving: * Basal insulin: Lantus SC BID based on BSG * 5 units for BSG less than 120 mg/dL * 10 units for BSG 120-160 mg/dL * 15 units for BSG greater than 160 mg/dL * Correctional Insulin: Novolog Correction per scale ACHS Goal Range: Low 120-150 mg/dL Correction Factor: 30 mg/dL/unit * Prandial insulin: Per carb ratio of 1 unit per 10 grams CHO consumed Risk Factors for Insulin Resistance: * Infection: MRSA bacteremia, endocarditis, septic pulmonary emboli, probable seeding/septic joint * Diet: T1DM ASSESSMENT: * 37 yo F with T1DM admitted with DKA and MRSA bacteremia 2nd endocarditis, septic pulmonary emboli, probable seeding/septic joint * Outpatient control of T1DM poor based on A1c of 12.7%. * BSG's well managed yesterday with the exception of the HS check which was substantially elevated to 300 mg/dL * AM fasting BSG elevated today to 204 mg/dL, likely 2nd the patient receiving a lower dose of Lantus yesterday AM * Will adjust Lantus parameters so patient may receive up to outpatient dose ( but divided BID) and adjust ranges so a decreased dose is less likely * Novolog parameters OK for now, with the exception of goal range may be contributing to slightly higher BSG's. Will lower. PLAN FOR INPATIENT GLYCEMIC CONTROL: * Basal insulin: Lantus SC BID based on BSG * 4 units for BSG less than 120 mg/dL * 10 units for BSG 120-140 mg/dL * 16 units for BSG greater than 140 mg/dL * Correctional Insulin: Novolog Correction per scale ACHS Goal Range: Low 110-140 mg/dL Correction Factor: 30 mg/dL/unit * Prandial insulin: Per carb ratio of 1 unit per 10 grams CHO consumed Pharmacy will continue to monitor patient daily and write orders per [facility] inpatient glycemic control protocol. Thanks. * Please note that the plan above was derived based on current level of insulin resistance and hospital stress. These recommendations are appropriate for inpatient admission only. Plan of care upon discharge will need to be reassessed to avoid potential outpatient hypo/hyperglycemia.
[2018-10-21] MEDS: CEFTAROLINE FOSAMIL ACETATE 600 MG in SODIUM CHLORIDE 0.9% 250 ML IV SCH ×2 (10:17→21:04)
[2018-10-21 14:33] LABS: Hematocrit (blood only) 23.6 % (37-47); Hemoglobin 7.8 g/dL (12.0-16.0)
--- NOTE | 2018-10-21 15:28 | Infectious Disease Progress Nt ---
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 Would continue patient on current therapy for now. Will need 6 weeks of IV antibiotics will be difficult given social status. May potentially be a candidate for use of dalbavancin upon discharge to allow treatment without indwelling IV. Will follow and discuss with all involved. (2) MRSA (methicillin resistant Staphylococcus aureus) septicemia: Subjective Patient seen in follow-up for tricuspid valve endocarditis with MRSA with septic pulmonary emboli. Recent events reviewed. Patient now status post thoracentesis for large left pleural effusion. Breathing somewhat better. Pleural fluid cultures remain negative to date. Last set of blood cultures no growth after several days. Continues with generalized pain. Physical Exam 2 Vital Signs (Past 24 Hours): Last Vital Signs Temp 36.7 C 10/21/18 15:00 Pulse 86 10/21/18 15:00 Resp 16 10/21/18 15:00 BP 148/86 H 10/21/18 15:00 Pulse Ox 96 10/21/18 15:00 Results & Data Laboratory Results Short CBC 10/21/18 10/21/18 Range/Units 05:52 14:12 WBC 10.56 (4.8-10.8) K/uL Hgb 6.8 L* 7.8 L (12.0-16.0) g/dL Hct 20.8 L* 23.6 L (37-47) % Plt Count 386 (130-400) K/uL BMP 10/21/18 05:52 Sodium 133 L Potassium 4.1 Chloride 100 Carbon Dioxide 24 BUN 16 Creatinine 1.29 H Glucose 186 H Calcium 7.7 L Diagnostic Findings Microbiology 10/20/18 Unknown Pleural Fluid Gram Stain - Final 10/20/18 Unknown Pleural Fluid Aerobic and Anaerobic Culture - Preliminary No growth to date. 10/17/18 12:06 Blood Fungal Smear - Final 10/17/18 12:06 Blood Fungal Culture - Preliminary Gram negative bacilli 10/19/18 14:01 Blood Blood Culture - Preliminary No growth to date. 10/19/18 13:45 Blood Blood Culture - Preliminary No growth to date. 10/15/18 09:19 Blood Blood Culture - Final Staph aureus MRSA 10/15/18 09:17 Blood Blood Culture - Final Staph aureus MRSA 10/11/18 03:42 Blood Fungal Smear - Final 10/11/18 03:42 Blood Fungal Culture - Preliminary No yeast or fungus isolated - Report 2, Additional report to follow. 10/12/18 08:47 Blood Blood Culture - Final Staph aureus MRSA 10/14/18 17:30 Urine,Clean Catch Urine Culture - Final Christine glabrata 10/14/18 09:16 Blood Blood Culture - Final Staph aureus MRSA 10/14/18 08:44 Blood Blood Culture - Final Staph aureus MRSA 10/10/18 08:43 Blood Blood Culture - Final Staph aureus MRSA 10/10/18 08:37 Blood Blood Culture - Final Staph aureus MRSA 10/12/18 08:54 Blood Blood Culture - Final Staph aureus MRSA 10/07/18 13:00 Urine,Straight Cath Urine Culture - Final No growth - less than 1,000 colonies/mL. 10/07/18 12:26 Blood Blood Culture - Final Staph aureus MRSA 10/07/18 13:54 Blood Blood Culture - Final Staph aureus MRSA XR chest 1V portable CLINICAL HISTORY: 37 years-old Female presenting with effusion . TECHNIQUE: Portable upright AP view of the chest was obtained. COMPARISON: 10/20/2018 and CTA from 10/14/2018. FINDINGS: Cardiomediastinal silhouette normal. Persistent small right and moderate left pleural effusions, which may be loculated. Extensive bibasilar opacities in addition to multifocal nodular and irregular opacities. No pneumothorax. Osseous structures normal. Upper abdomen normal. IMPRESSION: 1. No significant change in bilateral pleural effusions and extensive bilateral pulmonary infiltrates.
[2018-10-21] MEDS: rifAMPin 600 MG in DEXTROSE 5% 500 ML IV SCH (17:38)
[2018-10-21] MEDS: TRAZODONE HCL 50 MG TAB PO SCH (20:38)
[2018-10-22] MEDS: OXYCODONE HCL SOLN 5 MG/5 ML UDC PO SCH (04:54)
[2018-10-22] MEDS: ACETAMINOPHEN 325 MG TAB PO PRN ×2 (05:30→16:16)
[2018-10-22] MEDS: VANCOMYCIN HCL 125 MG/2.5ML SOLN PO SCH ×4 (06:10→23:31)
[2018-10-22] MEDS: RASPBERRY SYRUP 5 ML UDP PO SCH ×4 (06:10→23:31)
[2018-10-22] MEDS ORDERED: OXYCODONE HCL SOLN 5 MG/5 ML UDC PO PRN (07:30)
[2018-10-22] MEDS: DAPTOmycin 450 MG in SYRINGE 0 ML IV SCH (07:52)
[2018-10-22] MEDS: METOPROLOL TARTRATE 25 MG TAB PO SCH ×2 (07:52→21:42)
[2018-10-22] MEDS: INSULIN ASPART 100 UNITS/ML 3 ML PEN SC SCH ×4 (07:52→21:45)
[2018-10-22] MEDS: CHOLECALCIFEROL 1,000 UNITS TAB PO SCH (07:52)
[2018-10-22] MEDS: OXYCODONE HCL 10 MG TABCR (OXYCONTIN) PO SCH ×2 (07:52→21:42)
[2018-10-22] MEDS: INSULIN GLARGINE SOLOSTAR 100 UNITS/ML 3 ML PEN SC SCH ×2 (07:53→21:45)
[2018-10-22 08:08] LABS: Est GFR (African American) 77.3; Est GFR (Non-African American) 66.7
[2018-10-22] MEDS ORDERED: INSULIN GLARGINE SOLOSTAR 100 UNITS/ML 3 ML PEN SC ONE (08:30)
[2018-10-22 08:37] LABS: Basophils # (auto) 0.03 K/uL (0-0.2); Basophils % (auto) 0.2 %; Eosinophils # (auto) 0.27 K/uL (0-0.5); Eosinophils % (auto) 2.2 %; Hematocrit (blood only) 22.2 % (37-47); Hemoglobin 7.4 g/dL (12.0-16.0); Immature Granulocytes # (auto) 0.06 K/uL (0.00-0.02); Immature Granulocytes % (auto) 0.5 %; Lymphocytes # (auto) 2.02 K/uL (1.2-3.4); Lymphocytes % (auto) 16.3 %; Mean Corpuscular Hgb Conc 33.3 g/dL (32-36); Mean Corpuscular Volume 81.9 fL (80-100); Mean Platelet Volume 8.6 fL (7.4-10.4); Monocytes # (auto) 0.99 K/uL (0.11-0.59); Neutrophils % (auto) 72.8 %; Platelet Count 416 K/uL (130-400); RDW Coefficient of Variation 16.3 % (11.5-14.5); RDW Standard Deviation 47.2 fL (36.4-46.3); Red Blood Count 2.71 M/uL (4.2-5.4); White Blood Count 12.37 K/uL (4.8-10.8)
[2018-10-22 08:42] LABS: BUN Creatinine Ratio 13.7 (10-20); Calcium 7.8 mg/dl (8.5-10.1); Creatinine Clr Calc Pharmacy 79.7 ml/min; Est GFR (Non-African American) 70.7
[2018-10-22 08:57] LABS: Microcytosis Present; Toxic Vacuolation 1+
[2018-10-22] MEDS: CEFTAROLINE FOSAMIL ACETATE 600 MG in SODIUM CHLORIDE 0.9% 250 ML IV SCH ×2 (10:10→21:50)
--- NOTE | 2018-10-22 11:11 | Family Medicine Progress Note ---
Date of Service October 22, 2018 Assessment & Plan (1) MRSA (methicillin resistant Staphylococcus aureus) septicemia: Princess is a 37-year-old female with a past medical history of IV drug abuse and type 1 diabetes with resolved DKA being currently managed for MRSA endocarditis with septicemia. Infective endocarditis -Repeat echo with trapped vegetations, minimal to no TR, pleural effusions. � Ceftaroline + rifampin 600 mg daily. - Daptomycin added for improved coverage despite poor lung penetration - Leukocytosis to 12.3 today - Will likely d/c on Dalbavancin - If she leaves AMA, make sure to give dose of Dalbavancin prior to d/c - Will convert abx to above once auth is complete, will discuss with case tomorrow - Will reach out to care providers tomorrow to see who she can follow with in anticipation of discharge hopefully later in the week Acute hypoxic respiratory failure �In the setting of multiple septic emboli -s/p pleurocentesis, clinically improved -tachycardia and hypertension likely related. HR 86-201 today Anxiety/Insomnia - Slept poorly overnight -Trazadone 50mg qHS, didn't help much last night - Cites noise, frequent vital checks, bed discomfort as preventer her from sleep - Held Visteril Anemia - Hgb 7.4 today - s/p transfusion of 1 unit with appropriate hgb rise from 6.8 to 7.8 - Fecal occult blood negative - No signs of intravascular hemolysis on smear - Likely in setting of endocarditis and poor nutrtion on a background of repeat phlebomoty Acute renal failure, improving -likely secondary to septic picture. - Continue to follow BMP/Cr/UOP T2DM - Glucose checks AC/HS - Daily BMP, SG - SSI correction 40mg/dl/unit, 1:14 Carb Ratio HTN - Metoprolol Tartrate 25mg BID - Hold for BP systolic < 100, HR<60. Multifocal pain �Multiple septic emboli - History of buprenorphine tx (8mg BID [employer] dose), hx of IVDA of buprenorphine. � Oxycodone LA 10mg PO BID � Oxycodone IR 5mg Q6H PRN IV drug abuse �History of injecting buprenorphine. �Will require counseling and possible rehab on discharge Bacteruria (resolved) - UA Positive for bacteria and nitrites, UC shows minimal growth and is likely contaminant versus mild kami in the setting of stasis DKA (resolved) �Blood sugar 1220 on admission �Treated with DKA protocol on admit Diet: Tolerating PO well, T1 Diabetic Diet DVT Prophylaxsis: On heparin 5,000U Q8H (2) Acute kidney failure: (3) Right shoulder pain: (4) Wrist pain, left: (5) Aspiration into airway: (6) Hyperglycemia: (7) Hyponatremia: (8) DVT prophylaxis: Supervising Physician Co-Signing Physician Notes I personally examined the patient and verified all cotton points of history and exam, discussed case, and agree with decision making with Dr Hayes. Sleeping comfortably whenever I see her. Due to her overall progress but still open ended hospital stay, as well as her extreme anxiety, help to allow her to sleep, out of concern that awake and oriented provoking more anxiety could rekindle her thoughts of leaving against advice. Case discussed extensively with Dr. Hayes chart review, transportation consultant input appreciated. Vitals noted, resting comfortably in bed no distress. Breathing is unlabored, skin shows no rashes no pallor or icterus, neuro shows no focal deficits. MRSA endocarditis, with septic emboli to lungs, concern on wrist and shoulder infection -Repeat blood cultures negative thus far, continue current antibiotic coverage given that she has been persistently bacteremic-possibly candidate for Dalvance -we will continue to discuss with ID the timing of this transition, but will start to have case management look into coverage and feasibility -Repeat echocardiogram shows an ongoing quite large vegetation, but good valve integrity, thus far on discussions with cardiothoracic surgery they did not feel that surgery would be of benefit for her. For now continue antibiotics and serial echoes -Continue supportive care -Prior to discharge will want to pursue CT abdomen pelvis, and MRI brain, to look for any other downstream effects of the infection Anemia�no signs of acute blood loss, no hemodynamic instability. Improved status post transfusion of 1 unit. Likely poor p.o. intake/malnutrition combined with iatrogenic from prolonged multiple blood draws while here Insomnia/anxiety -Cautiously continue the trazodone at 50, continuing to hold off on the Atarax. Edema -Third spacing of fluids given for resuscitation. Compression, and movement. This appears to be improving DVT prophylaxis -Heparin subcu Subjective Princess reports she slept poorly due to frequent vital checks, beeping, and general bed discomfort. She is anxious to be discharged, and cites her anxiety is worse today than yesterday. Reports she is concerned her kids 'will forget about her.' She has not asked her family to bring the children to visit, reports she does not want them to see her in the hospital and worries they wouldn't come to visit if she did call. Was able to have a shower last night. [place] a little better, but feels like she is 'going stircrazy' today. Not sure what would help. Endorses shortness of breath similar to yesterday. Denies fevers, chills, sweats. Denies chest pain/chest pressure, painful breathing. Ate some eggs this morning, denies nausea/vomiting/diarrhea/constipation/ab pain today. Review of Systems See HPI Physical Exam 2 Vital Signs (Past 24 Hours): Last Vital Signs Temp 37.0 C 10/22/18 00:16 Pulse 102 H 10/22/18 00:16 Resp 20 10/22/18 00:16 BP 142/91 H 10/22/18 00:16 Pulse Ox 92 10/22/18 00:16 Physical Exam: General: A&Ox3. NAD. Cooperative. HEENT: Atraumatic, normocephalic. Pulm: Moderate air movement. Bibasilar crackles, otherwise CTAB A&P. -wheezes, -rhonchi. Symmetrical chest rise. No increase work of breathing. No respiratory distress. Cardiac: RRR, -mrg. Abdominal: Nontender, nondistended, soft. BS present. Extremity: Mild edema present in the lower legs bilaterally. Results & Data Laboratory Results Abnormal lab results 10/20/18 10/21/18 10/21/18 Range/Units 09:49 14:12 17:13 WBC (4.8-10.8) K/uL RBC (4.2-5.4) M/uL Hgb 7.8 L (12.0-16.0) g/dL Hct 23.6 L (37-47) % RDW Std Deviation (36.4-46.3) fL RDW Coeff of Clay (11.5-14.5) % Plt Count (130-400) K/uL Immature Gran # (Auto) (0.00-0.02) K/uL Neut # (Auto) (1.4-6.5) K/uL Casey # (Auto) (0.11-0.59) K/uL Sodium (136-145) mmol/L POC Glucose 163 H (70-99) Calcium (8.5-10.1) mg/dl Crossmatch See Detail 10/21/18 10/22/18 10/22/18 Range/Units 20:20 07:22 07:22 WBC 12.37 H (4.8-10.8) K/uL RBC 2.71 L (4.2-5.4) M/uL Hgb 7.4 L (12.0-16.0) g/dL Hct 22.2 L (37-47) % RDW Std Deviation 47.2 H (36.4-46.3) fL RDW Coeff of Clay 16.3 H (11.5-14.5) % Plt Count 416 H (130-400) K/uL Immature Gran # (Auto) 0.06 H (0.00-0.02) K/uL Neut # (Auto) 9.00 H (1.4-6.5) K/uL Casey # (Auto) 0.99 H (0.11-0.59) K/uL Sodium 134 L (136-145) mmol/L POC Glucose 184 H (70-99) Calcium 7.8 L (8.5-10.1) mg/dl Crossmatch Medications Administered Current Inpatient Medications Acetaminophen (Tylenol) 650 mg PO Q4H PRN PRN Reason: Pain or Fever Stop: 11/06/18 14:59 Last Admin: 10/22/18 05:30 Dose: 650 mg Acetaminophen (Ofirmev) 1,000 mg IV Q8H PRN PRN Reason: Fever Stop: 11/06/18 22:51 Last Admin: 10/12/18 00:18 Dose: 1,000 mg Dextrose (Dextrose 50%) 25 - 50 ml IV UD PRN; Protocol PRN Reason: Hypoglycemia Protocol Stop: 11/06/18 21:31 Last Admin: 10/08/18 21:11 Dose: 25 ml Ergocalciferol (Vitamin D2) 50,000 units PO Q7D [facility] Stop: 11/09/18 08:59 Last Admin: 10/17/18 08:02 Dose: 50,000 units Glucagon (Glucagen) 1 mg IM UD PRN; Protocol PRN Reason: Hypoglycemia Protocol Stop: 11/06/18 21:31 Glucose (Glucose 40%) 15 - 30 gm PO UD PRN; Protocol PRN Reason: Hypoglycemia Protocol Stop: 11/06/18 21:31 Glucose (Dex4 Glucose) 4 - 8 tabs PO UD PRN; Protocol PRN Reason: Hypoglycemia Protocol Stop: 11/06/18 21:31 Heparin Sodium (Porcine) (Heparin Sodium (Porcine)) 5,000 units SQ Q8 [facility] Stop: 11/13/18 13:59 Last Admin: 10/20/18 14:25 Dose: 5,000 units Hydroxyzine HCl (Vistaril) 25 mg PO HS PRN PRN Reason: breakthrough insomnia Stop: 11/18/18 15:03 Last Admin: 10/20/18 00:08 Dose: 25 mg Rifampin 600 mg/ Dextrose 510 mls @ 167 mls/hr IV DAILY@1700 [facility] Stop: 11/24/18 16:59 Last Infusion: 10/21/18 21:04 Dose: Infused Daptomycin 450 mg/ Syringe 9 mls @ 4.5 mls/min IV Q24H [facility]; Protocol Stop: 10/29/18 07:59 Last Admin: 10/22/18 07:52 Dose: 4.5 mls/min Ceftaroline Fosamil 600 mg/ (Sodium Chloride) 270 mls @ 270 mls/hr IV Q12H [facility] ; Protocol Stop: 10/25/18 21:59 Last Infusion: 10/22/18 11:15 Dose: Infused Insulin Aspart (Novolog Flexpen) 0 units SC ACHS [facility]; Protocol Stop: 11/16/18 16:29 Last Admin: 10/22/18 12:04 Dose: 5 units Insulin Glargine (Lantus Solostar Pen) 0 units SC BID [facility]; Protocol Stop: 11/16/18 20:59 Last Admin: 10/22/18 07:53 Dose: 4 units Lactulose (Chronulac) 30 gm PO Q8H PRN PRN Reason: Constipation Stop: 11/11/18 09:32 Last Admin: 10/13/18 08:57 Dose: 30 gm Metoprolol Tartrate (Lopressor) 25 mg PO BID [facility] Stop: 11/16/18 20:59 Last Admin: 10/22/18 07:52 Dose: 25 mg Miscellaneous (Carbohydrates For Hypoglycemia) 15 - 30 gm PO UD PRN PRN Reason: Hypoglycemia Treatment Stop: 11/06/18 21:31 Miscellaneous Information (Consult Glycemic Management Pharmacy) 1 ea N/A UD PRN PRN Reason: Consult Stop: 11/06/18 21:38 Miscellaneous Information () 1 ea N/A UD PRN PRN Reason: Consult Stop: 11/09/18 11:14 Miscellaneous Information (Consult) 1 ea N/A UD PRN PRN Reason: Consult Stop: 11/19/18 07:59 Naloxone HCl (Narcan) 0.2 mg IV PRN PRN PRN Reason: OVER Sedation Stop: 11/15/18 09:57 Ondansetron HCl (Zofran) 4 mg IV Q6H PRN PRN Reason: Nausea Stop: 11/06/18 14:59 Oxycodone HCl (Oxycontin) 10 mg PO BID [facility] Stop: 10/30/18 09:59 Last Admin: 10/22/18 07:52 Dose: 10 mg Oxycodone HCl (Roxicodone) 5 mg PO Q6H PRN PRN Reason: pain Stop: 10/30/18 09:59 Polyethylene Glycol (Miralax Powder Packet) 17 gm PO DAILY PRN PRN Reason: Constipation Stop: 11/06/18 14:59 Raspberry (Raspberry) 5 ml PO Q6 [facility] Stop: 11/01/18 00:00 Last Admin: 10/22/18 12:04 Dose: 5 ml Trazodone HCl (Desyrel) 50 mg PO HS [facility] Stop: 11/20/18 20:59 Last Admin: 10/21/18 20:38 Dose: 50 mg Vancomycin HCl (Vancomycin Hcl) 125 mg PO Q6 [facility] Stop: 10/28/18 00:00 Last Admin: 10/22/18 12:04 Dose: 125 mg Vitamin D (Vitamin D3) 2,000 units PO QAM [facility] Stop: 11/09/18 08:59 Last Admin: 10/22/18 07:52 Dose: 2,000 units _ (1) Aspiration into airway Encounter type: initial encounter Qualified Code(s): T17.908A - Unspecified foreign body in respiratory tract, part unspecified causing other injury, initial encounter
--- NOTE | 2018-10-22 13:12 | Pharmacy Report ---
PHA: Glycemic Control AP - Date of Service October 22, 2018 - Assessment & Plan Outpatient Anti-diabetic Regimen: * Insulin glargine 32 units qAM * Novolog - unknown dose/schedule * A1c = 12.7 % on 10/07/18 The patient is currently receiving: * Basal insulin: Lantus SC BID based on BSG * 4 units for BSG less than 120 mg/dL * 10 units for BSG 120-160 mg/dL * 16 units for BSG greater than 160 mg/dL * Correctional Insulin: Novolog Correction per scale ACHS Goal Range: Low 110-140 mg/dL Correction Factor: 30 mg/dL/unit * Prandial insulin: Per carb ratio of 1 unit per 10 grams CHO consumed Risk Factors for Insulin Resistance: * Infection: MRSA bacteremia, endocarditis, septic pulmonary emboli, probable seeding/septic joint * Diet: T1DM ASSESSMENT: * 37 yo F with T1DM admitted with DKA and MRSA bacteremia 2nd endocarditis, septic pulmonary emboli, probable seeding/septic joint * Outpatient control of T1DM poor based on A1c of 12.7%. * BSG's ranged 163-213 mg/dL yesterday, but are below goal today, thus far ranging 80-96 mg/dL * AM fasting BSG below goal today - OK to very slightly reduce Lantus administered (received 31 units yesterday) * Will very slightly loosen Novolog CHO ratio - patient consumed a large amount of CHO with breakfast (108 g) and BSG decreaed from 96 to 80 mg/dL PLAN FOR INPATIENT GLYCEMIC CONTROL: * Basal insulin: Lantus SC BID based on BSG * 12 units for BSG less than 120 mg/dL * 14 units for BSG 120-140 mg/dL * 16 units for BSG greater than 140 mg/dL * Correctional Insulin: Novolog Correction per scale ACHS Goal Range: Low 110-140 mg/dL Correction Factor: 30 mg/dL/unit * Prandial insulin: Per carb ratio of 1 unit per 10 grams CHO consumed Pharmacy will continue to monitor patient daily and write orders per [facility] inpatient glycemic control protocol. Thanks. * Please note that the plan above was derived based on current level of insulin resistance and hospital stress. These recommendations are appropriate for inpatient admission only. Plan of care upon discharge will need to be reassessed to avoid potential outpatient hypo/hyperglycemia.
--- NOTE | 2018-10-22 14:58 | Infectious Disease Progress Nt ---
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 Would continue patient on current therapy for now. Will need 6 weeks of IV antibiotics will be difficult given social status. May potentially be a candidate for use of dalbavancin upon discharge to allow treatment without indwelling IV. Will follow and discuss with all involved. (2) MRSA (methicillin resistant Staphylococcus aureus) septicemia: Patient with MRSA sepsis with tricuspid valve endocarditis with likely multiple joint involvement, with acute kidney injury now on ceftaroline. Follow -up blood cultures remain positive, would obtain repeat cultures to see if have cleared bacteremia. If continues to be positive, will likely need transfer to tertiary care center for possible surgery. Will follow. Subjective Patient seen in follow-up for tricuspid valve endocarditis with MRSA with septic pulmonary emboli. Recent events reviewed. Patient status post thoracentesis for large left pleural effusion. Breathing somewhat better. Pleural fluid cultures remain negative to date. Last set of blood cultures no growth after several days. Continues with generalized pain. Review of Systems All systems reviewed & are unremarkable except as noted in HPI & below Physical Exam 2 Vital Signs (Past 24 Hours): Last Vital Signs Temp 37.0 C 10/22/18 00:16 Pulse 102 H 10/22/18 00:16 Resp 20 10/22/18 00:16 BP 142/91 H 10/22/18 00:16 Pulse Ox 92 10/22/18 00:16 Constitutional: WD/WN, vitals as above comfortable; no acute distress Eyes: PERRL, conjunctivae normal, anicteric sclerae ENMT: external ear and nose normal, oropharynx normal Neck: trachea midline, no thyromegaly neck nontender Respiratory: normal respiratory effort, lungs clear to auscultation normal percussion; no respiratory distress Cardiovascular: Rate/Rhythm: regular rate and regular rhythm Heart Sounds: normal S1, normal S2 and + murmur; no gallop and no cardiac rub Gastrointestinal (Abdomen): normal bowel sounds, soft, nontender, no hepatosplenomegaly Musculoskeletal: no cyanosis or clubbing, extremities motor strength 5/5 No spinal tenderness, no joint swelling or erythema Skin: no rashes, warm and dry no lesions Neurologic: moves all extremities and awake; no focal motor deficits Motor/ Sensory: no sensory deficit Psychiatric: A+Ox3, euthymic affect Lymphatic: no cervical or axillary lymphadenopathy no inguinal lymphadenopathy Results & Data Laboratory Results Short CBC 10/22/18 Range/Units 07:22 WBC 12.37 H (4.8-10.8) K/uL Hgb 7.4 L (12.0-16.0) g/dL Hct 22.2 L (37-47) % Plt Count 416 H (130-400) K/uL BMP 10/22/18 10/22/18 07:18 07:22 Sodium 134 L Potassium 4.0 Chloride 103 Carbon Dioxide 23 BUN 14 Creatinine 1.07 1.02 Glucose 86 Calcium 7.8 L Diagnostic Findings Microbiology 10/20/18 Unknown Pleural Fluid Gram Stain - Final 10/20/18 Unknown Pleural Fluid Aerobic and Anaerobic Culture - Preliminary No growth to date. 10/17/18 12:06 Blood Fungal Smear - Final 10/17/18 12:06 Blood Fungal Culture - Preliminary No yeast or fungus isolated - Report 1, Additional Report to Follow. 10/20/18 Unknown Pleural Fluid Acid Fast Bacilli Smear - Final 10/19/18 14:01 Blood Blood Culture - Preliminary No growth to date. 10/19/18 13:45 Blood Blood Culture - Preliminary No growth to date. 10/15/18 09:19 Blood Blood Culture - Final Staph aureus MRSA 10/15/18 09:17 Blood Blood Culture - Final Staph aureus MRSA 10/11/18 03:42 Blood Fungal Smear - Final 10/11/18 03:42 Blood Fungal Culture - Preliminary No yeast or fungus isolated - Report 2, Additional report to follow. 10/12/18 08:47 Blood Blood Culture - Final Staph aureus MRSA 10/14/18 17:30 Urine,Clean Catch Urine Culture - Final Christine glabrata 10/14/18 09:16 Blood Blood Culture - Final Staph aureus MRSA 10/14/18 08:44 Blood Blood Culture - Final Staph aureus MRSA 10/10/18 08:43 Blood Blood Culture - Final Staph aureus MRSA 10/10/18 08:37 Blood Blood Culture - Final Staph aureus MRSA 10/12/18 08:54 Blood Blood Culture - Final Staph aureus MRSA 10/07/18 13:00 Urine,Straight Cath Urine Culture - Final No growth - less than 1,000 colonies/mL. 10/07/18 12:26 Blood Blood Culture - Final Staph aureus MRSA 10/07/18 13:54 Blood Blood Culture - Final Staph aureus MRSA
--- NOTE | 2018-10-22 17:24 | Progress Note ---
DATE: 10/22/2018 Ms. Katz was seen today. 2 days ago, I performed a thoracentesis. This fluid is not malignant nor is infected. Her x-ray yesterday showed she had very little in the way of reaccumulation. Subjectively, she is better. Her site is clean. She has decreased breath sounds in both bases, but they are about the same. At this point, we would simply continue to follow along. We would treat her symptomatically.
[2018-10-22] MEDS: rifAMPin 600 MG in DEXTROSE 5% 500 ML IV SCH (17:53)
[2018-10-22] MEDS: TRAZODONE HCL 50 MG TAB PO SCH (21:43)
[2018-10-23] MEDS: ACETAMINOPHEN 325 MG TAB PO PRN (01:27)
[2018-10-23] MEDS: VANCOMYCIN HCL 125 MG/2.5ML SOLN PO SCH ×4 (05:48→22:39)
[2018-10-23] MEDS: RASPBERRY SYRUP 5 ML UDP PO SCH ×4 (05:48→22:39)
--- NOTE | 2018-10-23 05:56 | Family Medicine Progress Note ---
Date of Service October 23, 2018 Subjective Received a page from RN earlier during the evening that the patient was anxious and experiencing some chest pain. EKG ordered and compared with prior EKG on 10/16. Normal sinus rhythm with T wave inversion lead V2, not present on EKG from 10/16 but is a normal variant. The patient was later evaluated around 0500 with call from RN that Ms. Katz is very anxious and sitting on the floor in the room naked. I went to see her and she complained that she is tired of being in the hospital and can't imagine staying 2 more nights. Also stated that she would like to stick a gun in her mouth and blow herself away. Discussion held to have her be evaluated by psych and the patient agreed. It is clear that she wants to leave the hospital. The nurse, Norma and I were able to move her from the floor to the chair. She accepted the offer of hot tea. General: in mild distress but calmed down by the end of the encounter. heart findings: RRR, normal S1 and S2, no murmur Lungs: CTAB, no wheezes, rales, rhonchi I spent one hour with the patient. Will place consult to psych. Physical Exam 2 Vital Signs (Past 24 Hours): Last Vital Signs Temp 36.9 C 10/22/18 23:56 Pulse 109 H 10/22/18 23:56 Resp 24 10/22/18 23:56 BP 143/87 H 10/22/18 23:56 Pulse Ox 95 10/22/18 23:56
[2018-10-23 07:53] LABS: Hematocrit (blood only) 23.4 % (37-47); Hemoglobin 7.7 g/dL (12.0-16.0); Mean Corpuscular Hgb Conc 32.9 g/dL (32-36); Mean Platelet Volume 8.9 fL (7.4-10.4); Platelet Count 393 K/uL (130-400); RDW Coefficient of Variation 16.5 % (11.5-14.5); Red Blood Count 2.82 M/uL (4.2-5.4); White Blood Count 10.16 K/uL (4.8-10.8)
[2018-10-23] MEDS: DAPTOmycin 450 MG in SYRINGE 0 ML IV SCH (08:00)
[2018-10-23] MEDS: INSULIN ASPART 100 UNITS/ML 3 ML PEN SC SCH ×4 (08:01→22:17)
[2018-10-23] MEDS: INSULIN GLARGINE SOLOSTAR 100 UNITS/ML 3 ML PEN SC SCH (08:02)
[2018-10-23] MEDS: OXYCODONE HCL 10 MG TABCR (OXYCONTIN) PO SCH ×2 (08:02→22:14)
[2018-10-23] MEDS: CHOLECALCIFEROL 1,000 UNITS TAB PO SCH (08:02)
[2018-10-23] MEDS: METOPROLOL TARTRATE 25 MG TAB PO SCH ×2 (08:02→22:15)
[2018-10-23 08:16] LABS: Creatinine Clr Calc Pharmacy 98.7 ml/min; Est GFR (Non-African American) 70.7
[2018-10-23] MEDS: CEFTAROLINE FOSAMIL ACETATE 600 MG in SODIUM CHLORIDE 0.9% 250 ML IV SCH ×2 (09:38→22:14)
--- NOTE | 2018-10-23 13:47 | Infectious Disease Progress Nt ---
Date of Service October 23, 2018 Assessment & Plan (1) Infective endocarditis: Patient with tricuspid valve endocarditis with large vegetation with septic pulmonary emboli, possible joint seeding, now clinically responding to antibiotics. Would continue on current IV antibiotics until, discharge, then given IVDU and he weighed indwelling central line, patient will then be transition to IV dalvabancin with 1500 mg dose every 2 weeks, likely for 2-3 additional doses. Discussed with hospitalist service. Will follow (2) MRSA (methicillin resistant Staphylococcus aureus) septicemia: Subjective Patient seen in follow-up for tricuspid valve endocarditis with MRSA with septic pulmonary emboli. Overall appears to be doing better, less pain, less short of breath. Very anxious about leaving hospital. Remains afebrile. Continues to tolerate antibiotics without major difficulty Review of Systems All systems reviewed & are unremarkable except as noted in HPI & below Physical Exam 2 Vital Signs (Past 24 Hours): Last Vital Signs Temp 36.7 C 10/23/18 06:40 Pulse 100 H 10/23/18 06:40 Resp 22 10/23/18 06:40 BP 151/88 H 10/23/18 06:40 Pulse Ox 94 10/23/18 06:40 Constitutional: WD/WN, vitals as above comfortable; no acute distress Eyes: PERRL, conjunctivae normal, anicteric sclerae ENMT: external ear and nose normal, oropharynx normal Neck: trachea midline, no thyromegaly neck nontender Respiratory: normal respiratory effort, lungs clear to auscultation normal percussion; no respiratory distress Cardiovascular: Rate/Rhythm: regular rate and regular rhythm Heart Sounds: normal S1, normal S2 and + murmur; no gallop and no cardiac rub Gastrointestinal (Abdomen): normal bowel sounds, soft, nontender, no hepatosplenomegaly Musculoskeletal: no cyanosis or clubbing, extremities motor strength 5/5 No spinal tenderness, no joint swelling or erythema Skin: no rashes, warm and dry no lesions Neurologic: moves all extremities and awake; no focal motor deficits Motor/ Sensory: no sensory deficit Psychiatric: A+Ox3, euthymic affect Lymphatic: no cervical or axillary lymphadenopathy no inguinal lymphadenopathy Results & Data Laboratory Results Short CBC 10/23/18 Range/Units 07:28 WBC 10.16 (4.8-10.8) K/uL Hgb 7.7 L (12.0-16.0) g/dL Hct 23.4 L (37-47) % Plt Count 393 (130-400) K/uL BMP 10/23/18 07:28 Creatinine 1.02 Cardiac Enzymes 10/22/18 Range/Units 14:46 Total Creatine Kinase 17 L (26-192) U/L Diagnostic Findings Microbiology 10/20/18 Unknown Pleural Fluid Gram Stain - Final 10/20/18 Unknown Pleural Fluid Aerobic and Anaerobic Culture - Preliminary No growth to date. 10/17/18 12:06 Blood Fungal Smear - Final 10/17/18 12:06 Blood Fungal Culture - Preliminary No yeast or fungus isolated - Report 1, Additional Report to Follow. 10/20/18 Unknown Pleural Fluid Acid Fast Bacilli Smear - Final 10/19/18 14:01 Blood Blood Culture - Preliminary No growth to date. 10/19/18 13:45 Blood Blood Culture - Preliminary No growth to date. 10/15/18 09:19 Blood Blood Culture - Final Staph aureus MRSA 10/15/18 09:17 Blood Blood Culture - Final Staph aureus MRSA 10/11/18 03:42 Blood Fungal Smear - Final 10/11/18 03:42 Blood Fungal Culture - Preliminary No yeast or fungus isolated - Report 2, Additional report to follow. 10/12/18 08:47 Blood Blood Culture - Final Staph aureus MRSA 10/14/18 17:30 Urine,Clean Catch Urine Culture - Final Christine glabrata 10/14/18 09:16 Blood Blood Culture - Final Staph aureus MRSA 10/14/18 08:44 Blood Blood Culture - Final Staph aureus MRSA 10/10/18 08:43 Blood Blood Culture - Final Staph aureus MRSA 10/10/18 08:37 Blood Blood Culture - Final Staph aureus MRSA 10/12/18 08:54 Blood Blood Culture - Final Staph aureus MRSA 10/07/18 13:00 Urine,Straight Cath Urine Culture - Final No growth - less than 1,000 colonies/mL. 10/07/18 12:26 Blood Blood Culture - Final Staph aureus MRSA 10/07/18 13:54 Blood Blood Culture - Final Staph aureus MRSA XR chest 1V portable CLINICAL HISTORY: 37 years-old Female presenting with effusion . TECHNIQUE: Portable upright AP view of the chest was obtained. COMPARISON: 10/20/2018 and CTA from 10/14/2018. FINDINGS: Cardiomediastinal silhouette normal. Persistent small right and moderate left pleural effusions, which may be loculated. Extensive bibasilar opacities in addition to multifocal nodular and irregular opacities. No pneumothorax. Osseous structures normal. Upper abdomen normal. IMPRESSION: 1. No significant change in bilateral pleural effusions and extensive bilateral pulmonary infiltrates. Electronically signed by: Alfredo Ascencio M.D. 10/21/2018 9:26 AM Dictated: 10/21/18923 Transcribed: 10/21/18923
[2018-10-23] MEDS: CARBOHYDRATES FOR HYPOGLYCEMIA PO PRN (16:32)
[2018-10-23] MEDS: rifAMPin 600 MG in DEXTROSE 5% 500 ML IV SCH (17:11)
--- NOTE | 2018-10-23 19:03 | Family Medicine Progress Note ---
Date of Service October 23, 2018 Assessment & Plan (1) MRSA (methicillin resistant Staphylococcus aureus) septicemia: Princess is a 37-year-old female with a past medical history of IV drug abuse and type 1 diabetes with resolved DKA being currently managed for MRSA endocarditis with septicemia. Infective endocarditis -Repeat echo with trapped vegetations, minimal to no TR, pleural effusions. � Ceftaroline + rifampin 600 mg daily. - Daptomycin added for improved coverage despite poor lung penetration - Leukocytosis to 12.3 today - Will have Dalbavancin 1.5g at infusion center at time of discharge, will need 1.5g dalvancin Q14 days with close followup thereafter. - Repeat BCx2 drawn today Acute hypoxic respiratory failure �In the setting of multiple septic emboli -s/p pleurocentesis, clinically improved -tachycardia and hypertension likely related. HR 86-116 today. Sats ~93% on RA. Anxiety/Insomnia - Slept poorly overnight -Trazadone 50mg qHS, didn't help much last night - Very anxious today, required frequent redirection to prevent leaving AMA. Recommend environmental interventions to help including allowing her to shower and encouraging her to walk around the unit. Suspect an element of anxiety and am concerned for a background of addiction psychology. Strongly recommend she stay at least until /Sunday for treatment. Anemia - Hgb 7.7 today - s/p transfusion of 1 unit with appropriate hgb rise from 6.8 to 7.8 - Fecal occult blood negative - No signs of intravascular hemolysis on smear - Likely in setting of endocarditis and poor nutrition on a background of repeat phlebomoty Acute renal failure, improving -likely secondary to septic picture. - Continue to follow BMP/Cr/UOP T2DM - Glucose checks AC/HS - Daily BMP, SG - SSI correction 40mg/dl/unit, 1:14 Carb Ratio HTN - Metoprolol Tartrate 25mg BID - Hold for BP systolic < 100, HR<60. 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 � Oxycodone LA 10mg PO BID � Oxycodone IR 5mg Q6H PRN IV drug abuse �History of injecting buprenorphine. �Will require counseling and possible rehab on discharge Bacteruria (resolved) - UA Positive for bacteria and nitrites, UC shows minimal growth and is likely contaminant versus mild kami in the setting of stasis DKA (resolved) �Blood sugar 1220 on admission �Treated with DKA protocol on admit Diet: Tolerating PO well, T1 Diabetic Diet DVT Prophylaxsis: On heparin 5,000U Q8H (2) Acute kidney failure: (3) Right shoulder pain: (4) Wrist pain, left: (5) Aspiration into airway: (6) Hyperglycemia: (7) Hyponatremia: (8) DVT prophylaxis: Supervising Physician Co-Signing Physician Notes I personally examined the patient and verified all cotton points of history and exam, discussed case, and agree with decision making with Dr Hayes. Awake anxious and almost insisting on going home. Fortunately is easy to discuss with her the risks benefits of her situation and the dire need to stay on IV antibiotics. Eventually she calm some and at least is willing to take things day by day. Vitals noted, in general she is awake alert oriented but extremely anxious bordering on unreasonable no physical distress but definitely appears to be in panic distress. HEENT normocephalic atraumatic mucous membranes are moist. Lungs are unlabored no accessory muscle use good effort. Mental status shows her to simultaneously have a degree of insight as well as poor insight depending on the moment. MRSA endocarditis, with septic emboli to lungs, concern on wrist and shoulder infection -Repeat blood cultures negative thus far, continue current antibiotics until Dalvance is able to be initiated. Case management to be working on this. Would anticipate 1500 mg every other week until infectious disease feels that situation is stabilized enough -Discussed extensively in between Dr. Hayes and myself repeatedly today the desperate need to not leave AMA, and the desperate need to have treatment not broken given a very real risk of , or worse situations involving septic emboli to which could be a more palatable alternative -Repeat echocardiogram shows an ongoing quite large vegetation, but good valve integrity, thus far on discussions with cardiothoracic surgery they did not feel that surgery would be of benefit for her. For now continue antibiotics and serial echoes -Continue supportive care -While CT abdomen pelvis and MRI brain could be helpful in quantifying the severity of spread of septic emboli, given the duration of antibiotics that she needs and the fact that we will not change immediate therapy, combined with her current anxiety, these tests can be pursued as an outpatient, as I believe doing more to her right now may cause her to leave AMA, which could have catastrophic consequences for her well-being Anemia�no signs of acute blood loss, no hemodynamic instability. Improved status post transfusion of 1 unit. Likely poor p.o. intake/malnutrition combined with iatrogenic from prolonged multiple blood draws while here. Try to minimize blood draws follow periodically Insomnia/anxiety -Cautiously continue the trazodone at 50 Edema -Third spacing of fluids given for resuscitation. Compression, and movement. Ongoing improvement DVT prophylaxis -Heparin subcu Subjective Princess is very anxious today. SHe perseverates on going home, and expresses concern about her home. Feel she is 'going crazy' staying in the hospital. Discussed her severe illness and need for antibiotics at length. Reports she feels the same as yesterday. Endorses shortness of breath, some chest tightness. Denies chest pain, fevers, chills, sweats, abdominal pain, nausea, vomiting, diarrhea. She is eating well and has an appetite. She is ambulating and has found benefit to her anxiety from hot showers. Physical Exam 2 Vital Signs (Past 24 Hours): Last Vital Signs Temp 36.8 C 10/23/18 14:41 Pulse 109 H 10/23/18 14:41 Resp 24 10/23/18 14:41 BP 156/95 H 10/23/18 14:41 Pulse Ox 93 10/23/18 14:41 Physical Exam: General: A&Ox3. NAD. Cooperative. HEENT: Atraumatic, normocephalic. Pulm: Moderate air movement. Continues to have bibasilar crackles, otherwise CTAB A&P. -wheezes, -rhonchi. Symmetrical chest rise. No increase work of breathing. No respiratory distress. Cardiac: RRR, -mrg. Abdominal: Nontender, nondistended, soft. BS present. Extremity: Mild edema present in the lower legs bilaterally. Results & Data Laboratory Results Abnormal lab results 10/20/18 10/22/18 10/23/18 Range/Units 09:49 19:30 07:11 RBC (4.2-5.4) M/uL Hgb (12.0-16.0) g/dL Hct (37-47) % RDW Std Deviation (36.4-46.3) fL RDW Coeff of Clay (11.5-14.5) % POC Glucose 199 H 225 H (70-99) Crossmatch See Detail 10/23/18 10/23/18 10/23/18 Range/Units 07:28 16:11 16:13 RBC 2.82 L (4.2-5.4) M/uL Hgb 7.7 L (12.0-16.0) g/dL Hct 23.4 L (37-47) % RDW Std Deviation 50.0 H (36.4-46.3) fL RDW Coeff of Clay 16.5 H (11.5-14.5) % POC Glucose 62 L* 69 L* (70-99) Crossmatch Medications Administered Current Inpatient Medications Acetaminophen (Tylenol) 650 mg PO Q4H PRN PRN Reason: Pain or Fever Stop: 11/06/18 14:59 Last Admin: 10/23/18 01:27 Dose: 650 mg Acetaminophen (Ofirmev) 1,000 mg IV Q8H PRN PRN Reason: Fever Stop: 11/06/18 22:51 Last Admin: 10/12/18 00:18 Dose: 1,000 mg Dextrose (Dextrose 50%) 25 - 50 ml IV UD PRN; Protocol PRN Reason: Hypoglycemia Protocol Stop: 11/06/18 21:31 Last Admin: 10/08/18 21:11 Dose: 25 ml Ergocalciferol (Vitamin D2) 50,000 units PO Q7D [facility] Stop: 11/09/18 08:59 Last Admin: 10/17/18 08:02 Dose: 50,000 units Glucagon (Glucagen) 1 mg IM UD PRN; Protocol PRN Reason: Hypoglycemia Protocol Stop: 11/06/18 21:31 Glucose (Glucose 40%) 15 - 30 gm PO UD PRN; Protocol PRN Reason: Hypoglycemia Protocol Stop: 11/06/18 21:31 Glucose (Dex4 Glucose) 4 - 8 tabs PO UD PRN; Protocol PRN Reason: Hypoglycemia Protocol Stop: 11/06/18 21:31 Heparin Sodium (Porcine) (Heparin Sodium (Porcine)) 5,000 units SQ Q12 [facility] Stop: 11/21/18 20:59 Hydroxyzine HCl (Vistaril) 25 mg PO HS PRN PRN Reason: breakthrough insomnia Stop: 11/18/18 15:03 Last Admin: 10/20/18 00:08 Dose: 25 mg Rifampin 600 mg/ Dextrose 510 mls @ 167 mls/hr IV DAILY@1700 [facility] Stop: 11/24/18 16:59 Last Admin: 10/23/18 17:11 Dose: 167 mls/hr Daptomycin 450 mg/ Syringe 9 mls @ 4.5 mls/min IV Q24H [facility]; Protocol Stop: 10/29/18 07:59 Last Admin: 10/23/18 08:00 Dose: 4.5 mls/min Ceftaroline Fosamil 600 mg/ (Sodium Chloride) 270 mls @ 270 mls/hr IV Q12H [facility] ; Protocol Stop: 10/25/18 21:59 Last Infusion: 10/23/18 10:48 Dose: Infused Insulin Aspart (Novolog Flexpen) 0 units SC ACHS [facility]; Protocol Stop: 11/16/18 16:29 Last Admin: 10/23/18 16:28 Dose: Not Given Insulin Glargine (Lantus Solostar Pen) 14 units SC ONE; Protocol Stop: 10/23/18 21:01 Insulin Glargine (Lantus Solostar Pen) 15 units SC BID [facility]; Protocol Stop: 11/23/18 08:59 Lactulose (Chronulac) 30 gm PO Q8H PRN PRN Reason: Constipation Stop: 11/11/18 09:32 Last Admin: 10/13/18 08:57 Dose: 30 gm Metoprolol Tartrate (Lopressor) 25 mg PO BID [facility] Stop: 11/16/18 20:59 Last Admin: 10/23/18 08:02 Dose: 25 mg Miscellaneous (Carbohydrates For Hypoglycemia) 15 - 30 gm PO UD PRN PRN Reason: Hypoglycemia Treatment Stop: 11/06/18 21:31 Last Admin: 10/23/18 16:32 Dose: 15 gm Miscellaneous Information (Consult Glycemic Management Pharmacy) 1 ea N/A UD PRN PRN Reason: Consult Stop: 11/06/18 21:38 Miscellaneous Information () 1 ea N/A UD PRN PRN Reason: Consult Stop: 11/09/18 11:14 Miscellaneous Information (Consult) 1 ea N/A UD PRN PRN Reason: Consult Stop: 11/19/18 07:59 Naloxone HCl (Narcan) 0.2 mg IV PRN PRN PRN Reason: OVER Sedation Stop: 11/15/18 09:57 Ondansetron HCl (Zofran) 4 mg IV Q6H PRN PRN Reason: Nausea Stop: 11/06/18 14:59 Oxycodone HCl (Oxycontin) 10 mg PO BID [facility] Stop: 10/30/18 09:59 Last Admin: 10/23/18 08:02 Dose: 10 mg Oxycodone HCl (Roxicodone) 5 mg PO Q6H PRN PRN Reason: pain Stop: 10/30/18 09:59 Polyethylene Glycol (Miralax Powder Packet) 17 gm PO DAILY PRN PRN Reason: Constipation Stop: 11/06/18 14:59 Raspberry (Raspberry) 5 ml PO Q6 [facility] Stop: 11/01/18 00:00 Last Admin: 10/23/18 17:11 Dose: 5 ml Trazodone HCl (Desyrel) 50 mg PO HS [facility] Stop: 11/20/18 20:59 Last Admin: 10/22/18 21:43 Dose: 50 mg Vancomycin HCl (Vancomycin Hcl) 125 mg PO Q6 [facility] Stop: 10/28/18 00:00 Last Admin: 10/23/18 17:11 Dose: 125 mg Vitamin D (Vitamin D3) 2,000 units PO QAM [facility] Stop: 11/09/18 08:59 Last Admin: 10/23/18 08:02 Dose: 2,000 units Resident Activity Tracking Resident Involvement: Resident Care Provided Care Provided: [facility] Medicine _ (1) Aspiration into airway Encounter type: initial encounter Qualified Code(s): T17.908A - Unspecified foreign body in respiratory tract, part unspecified causing other injury, initial encounter
[2018-10-23] MEDS ORDERED: INSULIN GLARGINE SOLOSTAR 100 UNITS/ML 3 ML PEN SC ONE (21:00)
[2018-10-23] MEDS: TRAZODONE HCL 50 MG TAB PO SCH (22:16)
[2018-10-24] MEDS ORDERED: LORazepam 0.5 MG/1 ML VIAL IV STA (04:04)
[2018-10-24] MEDS: VANCOMYCIN HCL 125 MG/2.5ML SOLN PO SCH ×4 (04:28→23:54)
[2018-10-24] MEDS: RASPBERRY SYRUP 5 ML UDP PO SCH ×4 (04:29→23:52)
[2018-10-24] MEDS: CHOLECALCIFEROL 1,000 UNITS TAB PO SCH (08:02)
[2018-10-24] MEDS: OXYCODONE HCL 10 MG TABCR (OXYCONTIN) PO SCH ×3 (08:02→20:44)
[2018-10-24] MEDS: DAPTOmycin 450 MG in SYRINGE 0 ML IV SCH (08:02)
[2018-10-24] MEDS: METOPROLOL TARTRATE 25 MG TAB PO SCH ×4 (08:03→22:54)
[2018-10-24] MEDS: INSULIN ASPART 100 UNITS/ML 3 ML PEN SC SCH ×4 (08:03→22:15)
[2018-10-24] MEDS: INSULIN GLARGINE SOLOSTAR 100 UNITS/ML 3 ML PEN SC SCH ×2 (08:04→22:14)
[2018-10-24] MEDS: ERGOCALCIFEROL 50,000 UNITS CAP PO SCH (08:09)
[2018-10-24 08:12] LABS: Hematocrit (blood only) 26.2 % (37-47); Hemoglobin 8.6 g/dL (12.0-16.0); Mean Corpuscular Hgb Conc 32.8 g/dL (32-36); Mean Corpuscular Volume 83.4 fL (80-100); Mean Platelet Volume 9.1 fL (7.4-10.4); Platelet Count 430 K/uL (130-400); RDW Coefficient of Variation 16.4 % (11.5-14.5); RDW Standard Deviation 49.3 fL (36.4-46.3); Red Blood Count 3.14 M/uL (4.2-5.4); White Blood Count 13.12 K/uL (4.8-10.8)
[2018-10-24 08:44] LABS: BUN Creatinine Ratio 9.4 (10-20); Calcium 8.2 mg/dl (8.5-10.1); Creatinine Clr Calc Pharmacy 105.3 ml/min; Est GFR (African American) 89.3; Est GFR (Non-African American) 77.1; Potassium 4.4 mmol/L (3.5-5.1)
[2018-10-24] MEDS: CEFTAROLINE FOSAMIL ACETATE 600 MG in SODIUM CHLORIDE 0.9% 250 ML IV SCH ×2 (09:36→22:29)
--- NOTE | 2018-10-24 14:47 | Pharmacy Report ---
Pharmacy Glycemic Short Note 2 - Date of Service October 24, 2018 - Glycemic Short BSG Results (Last 24 hours): 10/23/18 10/23/18 10/23/18 16:11 16:13 16:31 Glucose POC Glucose 62 L* 69 L* 78 10/23/18 10/24/18 10/24/18 20:29 07:21 07:41 Glucose 137 H POC Glucose 192 H 153 H 10/24/18 11:20 Glucose POC Glucose 76 Outpatient Anti-diabetic Regimen: * Insulin glargine 32 units qAM * Novolog - unknown dose/schedule * A1c = 12.7 % on 10/07/18 ASSESSMENT: 10/23/18: * Patient has been slightly/borderline hypoglycemic a couple of times in the past 24 hours, but fasting BSG is on the upper end of goal range. * Lantus dose appears to be appropriate. * Novolog parameters loosened slightly to provide less prandial/correctional insulin throughout the day. 10/22/18 * 37 yo F with T1DM admitted with DKA and MRSA bacteremia 2nd endocarditis, septic pulmonary emboli, probable seeding/septic joint * Outpatient control of T1DM poor based on A1c of 12.7%. * BSG's ranged 163-213 mg/dL yesterday, but are below goal today, thus far ranging 80-96 mg/dL * AM fasting BSG below goal today - OK to very slightly reduce Lantus administered (received 31 units yesterday) * Will very slightly loosen Novolog CHO ratio - patient consumed a large amount of CHO with breakfast (108 g) and BSG decreaed from 96 to 80 mg/dL PLAN FOR INPATIENT GLYCEMIC CONTROL: * Basal insulin: Lantus 15 units SQ BID * Correctional Insulin: Novolog Correction per scale ACHS Goal Range: Low 110-140 mg/dL Correction Factor: 35 mg/dL/unit * Prandial insulin: Per carb ratio of 1 unit per 12 grams CHO consumed Pharmacy will continue to monitor patient daily and write orders per [facility] inpatient glycemic control protocol. Thanks. * Please note that the plan above was derived based on current level of insulin resistance and hospital stress. These recommendations are appropriate for inpatient admission only. Plan of care upon discharge will need to be reassessed to avoid potential outpatient hypo/hyperglycemia.
[2018-10-24] MEDS: rifAMPin 600 MG in DEXTROSE 5% 500 ML IV SCH (17:21)
--- NOTE | 2018-10-24 18:19 | Family Medicine Progress Note ---
Date of Service October 24, 2018 Assessment & Plan (1) MRSA (methicillin resistant Staphylococcus aureus) septicemia: Princess is a 37-year-old female with a past medical history of IV drug abuse and type 1 diabetes with resolved DKA being currently managed for MRSA endocarditis with septicemia. Infective endocarditis -Repeat echo with trapped vegetations, minimal to no TR, pleural effusions. � Ceftaroline + rifampin 600 mg daily. - Daptomycin added for improved coverage despite poor lung penetration - Leukocytosis to 13.2 today - Will have Dalbavancin 1.5g at infusion center at time of discharge, will need 1.5g dalvancin Q14 days with close followup thereafter.Working on insurance pre- auth, pending and hopefully back today/tomorrow. - Repeat BCx2 pending Acute hypoxic respiratory failure �In the setting of multiple septic emboli -s/p pleurocentesis, clinically improved -tachycardia and hypertension likely related. Anxiety/Insomnia - Slept poorly overnight -Trazadone 50mg qHS, didn't help much last night - Very anxious today, again required frequent redirection to prevent leaving AMA. Recommend environmental interventions to help including allowing her to shower and encouraging her to walk around the unit. Her father is going to stay the night to help calm her anxiety and prevent her from leaving AMA. - Hydroxyzine 25mg PO PRN Anemia - Hgb 8.6 today - s/p transfusion of 1 unit with appropriate hgb rise from 6.8 to 7.8 - Fecal occult blood negative - No signs of intravascular hemolysis on smear - Likely in setting of endocarditis and poor nutrition on a background of repeat phlebomoty Acute renal failure, improving -likely secondary to septic picture. - Continue to follow BMP/Cr/UOP T2DM - Glucose checks AC/HS - Daily BMP, SG - SSI correction 40mg/dl/unit, 1:14 Carb Ratio HTN - Metoprolol Tartrate 25mg BID - Hold for BP systolic < 100, HR<60. 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 � Oxycodone LA 10mg PO BID � Oxycodone IR 5mg Q6H PRN IV drug abuse �History of injecting buprenorphine. �Will require counseling and possible rehab on discharge - Attempting to place into direct f/u with PCP and possibly methadone clinic Bacteruria (resolved) - UA Positive for bacteria and nitrites, UC shows minimal growth and is likely contaminant versus mild kami in the setting of stasis DKA (resolved) �Blood sugar 1220 on admission �Treated with DKA protocol on admit Diet: Tolerating PO well, T1 Diabetic Diet DVT Prophylaxsis: On heparin 5,000U Q8H (2) Acute kidney failure: (3) Right shoulder pain: (4) Wrist pain, left: (5) Aspiration into airway: (6) Hyperglycemia: (7) Hyponatremia: (8) DVT prophylaxis: Supervising Physician Co-Signing Physician Notes I personally examined the patient and verified all cotton points of history and exam, discussed case, and agree with decision making with Dr Hayes. Patient seen multiple times today, due to her high anxiety and desperate need to go home. She tries bargaining in the situation and tries to find any way to get me to make promises of when she will be able to go home or when the Dalvance and I repeatedly redirect and explain what I can and cannot make promises on, and then reiterate the dire need of uninterrupted treatment for her care Vitals noted, I see her both times with her father, she is sitting up in chair very appearing very anxious and hypervigilant but no physical distress. Breathing is unlabored, skin shows no rashes no pallor or icterus, neuro shows no focal deficits. MRSA endocarditis, with septic emboli to lungs, concern on wrist and shoulder infection -Repeat blood cultures negative thus far -Repeat echocardiogram shows an ongoing quite large vegetation, but good valve integrity, thus far on discussions with cardiothoracic surgery they did not feel that surgery would be of benefit for her. For now continue antibiotics and serial echoes -Continue supportive care -Continue current antibiotics until Dalvance is able to be initiated -CT abdomen pelvis, and MRI brain have been considered to further assess the downstream effects of the infection, but given her current anxiety and given that these would not actually change treatment as much is assess the damage, I believe it would probably be more harm than good right now as further testing may provoke her anxiety further questions Anemia�no signs of acute blood loss, no hemodynamic instability. Improved status post transfusion of 1 unit. Likely poor p.o. intake/malnutrition combined with iatrogenic from prolonged multiple blood draws while here, follow periodically, but obviously try to minimize blood draws as possible Insomnia/anxiety -Cautiously continue the trazodone at 50, Atarax as needed, continue his reassurance with multiple visits today Edema -Third spacing of fluids given for resuscitation. Compression, and movement. This appears to be improving DVT prophylaxis -Heparin subcu Greater than 30 minutes [id number] in the room today over 2 visits and discussions with her and her father, mostly centered on trying to get her to not leave the hospital given the catastrophic consequences that may happen if she does Subjective Princess continues to be very anxious today. She reports she slept poorly. Her father is here to visit her today. She would like to be discharged, perseverates on wanting to go home as soon as possible and wants to know when the dalvamancin will be available Denies fever, chills, chest pain, chest pressure overnight Endorses shortness of breath unchanged from prior Able to eat breakfast. Denies nausea, vomiting, diarrhea, constipation, abdominal pain Endorses some shoulder pain Physical Exam 2 Vital Signs (Past 24 Hours): Last Vital Signs Temp 37.0 C 10/24/18 15:31 Pulse 120 H 10/24/18 16:15 Resp 20 10/24/18 15:31 BP 142/89 H 10/24/18 16:15 Pulse Ox 91 10/24/18 15:31 Physical Exam: General: A&Ox3. NAD. Cooperative. HEENT: Atraumatic, normocephalic. Pulm: Moderate air movement. CTAB A&P. -wheezes, -rhonchi. Symmetrical chest rise. No increase work of breathing. No respiratory distress. Cardiac: RRR, -mrg. Abdominal: Nontender, nondistended, soft. BS present. Extremity: Mild edema present in the lower legs bilaterally. Results & Data Laboratory Results Abnormal lab results 10/23/18 10/24/18 10/24/18 Range/Units 20:29 07:21 07:41 WBC 13.12 H (4.8-10.8) K/uL RBC 3.14 L (4.2-5.4) M/uL Hgb 8.6 L (12.0-16.0) g/dL Hct 26.2 L (37-47) % RDW Std Deviation 49.3 H (36.4-46.3) fL RDW Coeff of Clay 16.4 H (11.5-14.5) % Plt Count 430 H (130-400) K/uL Sodium (136-145) mmol/L BUN/Creatinine Ratio (10-20) Glucose (70-99) mg/dl POC Glucose 192 H 153 H (70-99) Calcium (8.5-10.1) mg/dl 10/24/18 Range/Units 07:41 WBC (4.8-10.8) K/uL RBC (4.2-5.4) M/uL Hgb (12.0-16.0) g/dL Hct (37-47) % RDW Std Deviation (36.4-46.3) fL RDW Coeff of Clay (11.5-14.5) % Plt Count (130-400) K/uL Sodium 134 L (136-145) mmol/L BUN/Creatinine Ratio 9.4 L (10-20) Glucose 137 H (70-99) mg/dl POC Glucose (70-99) Calcium 8.2 L (8.5-10.1) mg/dl Medications Administered Current Inpatient Medications Acetaminophen (Tylenol) 650 mg PO Q4H PRN PRN Reason: Pain or Fever Stop: 11/06/18 14:59 Last Admin: 10/23/18 01:27 Dose: 650 mg Acetaminophen (Ofirmev) 1,000 mg IV Q8H PRN PRN Reason: Fever Stop: 11/06/18 22:51 Last Admin: 10/12/18 00:18 Dose: 1,000 mg Dextrose (Dextrose 50%) 25 - 50 ml IV UD PRN; Protocol PRN Reason: Hypoglycemia Protocol Stop: 11/06/18 21:31 Last Admin: 10/08/18 21:11 Dose: 25 ml Ergocalciferol (Vitamin D2) 50,000 units PO Q7D [facility] Stop: 11/09/18 08:59 Last Admin: 10/24/18 08:09 Dose: Not Given Glucagon (Glucagen) 1 mg IM UD PRN; Protocol PRN Reason: Hypoglycemia Protocol Stop: 11/06/18 21:31 Glucose (Glucose 40%) 15 - 30 gm PO UD PRN; Protocol PRN Reason: Hypoglycemia Protocol Stop: 11/06/18 21:31 Glucose (Dex4 Glucose) 4 - 8 tabs PO UD PRN; Protocol PRN Reason: Hypoglycemia Protocol Stop: 11/06/18 21:31 Heparin Sodium (Porcine) (Heparin Sodium (Porcine)) 5,000 units SQ Q12 [facility] Stop: 11/21/18 20:59 Hydroxyzine HCl (Vistaril) 25 mg PO HS PRN PRN Reason: breakthrough insomnia Stop: 11/18/18 15:03 Last Admin: 10/20/18 00:08 Dose: 25 mg Rifampin 600 mg/ Dextrose 510 mls @ 167 mls/hr IV DAILY@1700 [facility] Stop: 11/24/18 16:59 Last Admin: 10/24/18 17:21 Dose: 167 mls/hr Daptomycin 450 mg/ Syringe 9 mls @ 4.5 mls/min IV Q24H [facility]; Protocol Stop: 10/29/18 07:59 Last Admin: 10/24/18 08:02 Dose: 4.5 mls/min Ceftaroline Fosamil 600 mg/ (Sodium Chloride) 270 mls @ 270 mls/hr IV Q12H [facility] ; Protocol Stop: 10/25/18 21:59 Last Infusion: 10/24/18 10:38 Dose: Infused Insulin Aspart (Novolog Flexpen) 0 units SC ACHS [facility]; Protocol Stop: 11/16/18 16:29 Last Admin: 10/24/18 17:22 Dose: Not Given Insulin Glargine (Lantus Solostar Pen) 15 units SC BID [facility]; Protocol Stop: 11/23/18 08:59 Last Admin: 10/24/18 08:04 Dose: 15 units Lactulose (Chronulac) 30 gm PO Q8H PRN PRN Reason: Constipation Stop: 11/11/18 09:32 Last Admin: 10/13/18 08:57 Dose: 30 gm Metoprolol Tartrate (Lopressor) 25 mg PO BID [facility] Stop: 11/16/18 20:59 Last Admin: 10/24/18 08:10 Dose: Not Given Miscellaneous (Carbohydrates For Hypoglycemia) 15 - 30 gm PO UD PRN PRN Reason: Hypoglycemia Treatment Stop: 11/06/18 21:31 Last Admin: 10/23/18 16:32 Dose: 15 gm Miscellaneous Information (Consult Glycemic Management Pharmacy) 1 ea N/A UD PRN PRN Reason: Consult Stop: 11/06/18 21:38 Miscellaneous Information () 1 ea N/A UD PRN PRN Reason: Consult Stop: 11/09/18 11:14 Miscellaneous Information (Consult) 1 ea N/A UD PRN PRN Reason: Consult Stop: 11/19/18 07:59 Naloxone HCl (Narcan) 0.2 mg IV PRN PRN PRN Reason: OVER Sedation Stop: 11/15/18 09:57 Ondansetron HCl (Zofran) 4 mg IV Q6H PRN PRN Reason: Nausea Stop: 11/06/18 14:59 Oxycodone HCl (Oxycontin) 10 mg PO BID [facility] Stop: 10/30/18 09:59 Last Admin: 10/24/18 08:09 Dose: Not Given Oxycodone HCl (Roxicodone) 5 mg PO Q6H PRN PRN Reason: pain Stop: 10/30/18 09:59 Polyethylene Glycol (Miralax Powder Packet) 17 gm PO DAILY PRN PRN Reason: Constipation Stop: 11/06/18 14:59 Raspberry (Raspberry) 5 ml PO Q6 [facility] Stop: 11/01/18 00:00 Last Admin: 10/24/18 17:40 Dose: 5 ml Trazodone HCl (Desyrel) 50 mg PO HS [facility] Stop: 11/20/18 20:59 Last Admin: 10/23/18 22:16 Dose: 50 mg Vancomycin HCl (Vancomycin Hcl) 125 mg PO Q6 [facility] Stop: 10/28/18 00:00 Last Admin: 10/24/18 17:40 Dose: 125 mg Vitamin D (Vitamin D3) 2,000 units PO QAM [facility] Stop: 11/09/18 08:59 Last Admin: 10/24/18 08:02 Dose: 2,000 units Resident Activity Tracking Resident Involvement: Resident Care Provided Care Provided: [facility] _ (1) Aspiration into airway Encounter type: initial encounter Qualified Code(s): T17.908A - Unspecified foreign body in respiratory tract, part unspecified causing other injury, initial encounter
[2018-10-24] MEDS ORDERED: SIMETHICONE 40 MG/0.6 ML 30ML PO ONE (20:46)
[2018-10-24] MEDS: TRAZODONE HCL 50 MG TAB PO SCH (22:13)
[2018-10-24] MEDS ORDERED: LORazepam 1 MG/2 ML VIAL IV STA (23:34)
[2018-10-25 00:10] LABS: HCO3 ABG 22 mmol/L (19-24); Oxygen Saturation ABG 92.3 % (90-95); PCO2 ABG 33 mmHg (35-46); PO2 ABG 74 mm/Hg (80-95); pH ABG 7.45 (7.35-7.45)
[2018-10-25 00:11] LABS: Allen Test Pos (Pos)
[2018-10-25] MEDS ORDERED: HALOPERIDOL LACTATE 5 MG/ML 1 ML VIAL IM STA (01:33)
[2018-10-25] MEDS ORDERED: LORazepam 1 MG/2 ML VIAL IV STA (03:01)
[2018-10-25] MEDS ORDERED: METHYLPREDNISOLONE IV STA (03:27)
[2018-10-25] MEDS ORDERED: DEXTROSE 5% IV STA (03:27)
[2018-10-25] MEDS ORDERED: methylPREDNISolone 125 MG in SYRINGE 0 ML IV SCH (04:00)
--- NOTE | 2018-10-25 06:58 | XRay Report ---
XR chest 1V portable CLINICAL HISTORY: Shortness of breath COMPARISON STUDY: 10/21/2018 FINDINGS: There are persistent bilateral pleural effusions left greater than right. There are persist ent bilateral nodular airspace opacities. Given the differences in technique, the findings remain ess entially stable.[ IMPRESSION: 1. No significant change from the prior study 2. Persistent bilateral pleural effusions left greater than right 3. Persistent diffuse bilateral nodular airspace opacities Electronically signed by: Aidan Kendrick M.D. 10/25/2018 6:57 AM
[2018-10-25] MEDS: ALBUT/IPRATROP 3MG/0.5MG NEB 3 ML VIAL NEB SCH ×5 (07:11→23:18)
[2018-10-25 07:31] LABS: Hematocrit (blood only) 22.4 % (37-47); Hemoglobin 7.2 g/dL (12.0-16.0); Mean Corpuscular Hgb Conc 32.1 g/dL (32-36); Mean Corpuscular Volume 83.9 fL (80-100); Mean Platelet Volume 8.6 fL (7.4-10.4); Platelet Count 356 K/uL (130-400); RDW Coefficient of Variation 16.1 % (11.5-14.5); RDW Standard Deviation 49.1 fL (36.4-46.3); Red Blood Count 2.67 M/uL (4.2-5.4); White Blood Count 22.72 K/uL (4.8-10.8)
[2018-10-25 07:57] LABS: BUN Creatinine Ratio 11.3 (10-20); Calcium 7.9 mg/dl (8.5-10.1); Creatinine Clr Calc Pharmacy 97.1 ml/min; Est GFR (Non-African American) 69.9; Potassium 5.6 mmol/L (3.5-5.1)
[2018-10-25] MEDS: HEPARIN SOD 5,000 UNIT/0.5 ML VIAL SQ SCH ×2 (08:24→21:35)
[2018-10-25] MEDS: INSULIN ASPART 100 UNITS/ML 3 ML PEN SC SCH ×4 (08:24→21:40)
[2018-10-25] MEDS: INSULIN GLARGINE SOLOSTAR 100 UNITS/ML 3 ML PEN SC SCH ×2 (08:25→21:39)
[2018-10-25] MEDS: CEFTAROLINE FOSAMIL ACETATE 600 MG in SODIUM CHLORIDE 0.9% 250 ML IV SCH ×2 (09:15→23:30)
--- NOTE | 2018-10-25 10:20 | XRay Report ---
XR chest 1V portable CLINICAL HISTORY: Post thoracentesis COMPARISON STUDY: No previous studies for comparison. FINDINGS: The heart remains enlarged. There are persistent nodular bilateral pulmonary airspace opaci ties. There are persistent bilateral pleural effusions with slight interval decrease in size left ple ural effusion. There is no evidence of pneumothorax status post thoracentesis.[ IMPRESSION: 1. No evidence of pneumothorax status post thoracentesis 2. Persistent bilateral nodular airspace opacities Electronically signed by: Aidan Kendrick M.D. 10/25/2018 10:19 AM
[2018-10-25 10:39] LABS: Total Protein Pleural Fluid 3.8 g/dl
[2018-10-25 11:00] LABS: Mononuclear WBC Pleural 67.8 %; Polynuclear WBC Pleural 32.2 %; RBC Pleural Fluid (A) 15000 /uL; Source Pleural Fluid LEFT LUNG; WBC Pleural Fluid (A) 388 /uL
--- NOTE | 2018-10-25 11:00 | Family Medicine Progress Note ---
Date of Service October 25, 2018 Assessment & Plan (1) MRSA (methicillin resistant Staphylococcus aureus) septicemia: Princess is a 37-year-old female with a past medical history of IV drug abuse and type 1 diabetes with resolved DKA being currently managed for MRSA endocarditis with septicemia. Infective endocarditis -Repeat echo with trapped vegetations, minimal to no TR, pleural effusions. � Ceftaroline + rifampin 600 mg daily. - Daptomycin added for improved coverage despite poor lung penetration - Leukocytosis increased to 22.7 today - Repeat BCx2 on 10/25 and 10/19 with ng - Dalbavancin preauth approved for 10/25/18 to 12/22/18. Cannot receive infusion on day of discharge. - Ideally will time abx right before discharge in the evening ~9pm then followup to [facility] next day for infusion Acute hypoxic respiratory failure �In the setting of multiple septic emboli - Repeat CXR last night suspeciious for increased dependent fluid. - ABG 10/25/18: 7.45/33// - s/p second pleurocentesis 10/25, removed 800mL transudative fluid removed - on BiPap, Spo2 98% during AM, on room air ~93% on revisit in afternoon - Increasingly insistent on being discharged home, given her O2 sat do not feel she is medically ready to be discharged. Given that her condition is going to improve very slowly, that we have a stable plan for antibiotic therapy as above , and that she is a high risk of leaving AMA will assess for home O2 needs. -s/p pleurocentesis on 10/20, clinically improved Anxiety/Insomnia - Extremely agitated overnight, was sedated with lorazepam + haldol overnight - Trazodone 50mg PO PRN - Hydroxyzine 25mg PO PRN Anemia - Hgb 8.6 today - s/p transfusion of 1 unit with appropriate hgb rise from 6.8 to 7.8 - Fecal occult blood negative - No signs of intravascular hemolysis on smear - Likely in setting of endocarditis and poor nutrition on a background of repeat phlebomoty Acute renal failure, improving -likely secondary to septic picture. - Continue to follow BMP/Cr/UOP T2DM - Glucose checks AC/HS - Daily BMP, SG - SSI correction 40mg/dl/unit, 1:14 Carb Ratio HTN - Metoprolol Tartrate 25mg BID - Hold for BP systolic < 100, HR<60. Multifocal pain �Multiple septic emboli - History of buprenorphine tx (8mg BID REVIEW SCHEDULING COORDINATOR dose), hx of IVDA of buprenorphine. � Oxycodone LA 10mg PO BID � Oxycodone IR 5mg Q6H PRN IV drug abuse �History of injecting buprenorphine. �Will require counseling and possible rehab on discharge - Attempting to place into direct f/u with PCP and possibly methadone clinic Bacteruria (resolved) - UA Positive for bacteria and nitrites, UC shows minimal growth and is likely contaminant versus mild kami in the setting of stasis DKA (resolved) �Blood sugar 1220 on admission �Treated with DKA protocol on admit Diet: Tolerating PO well, T1 Diabetic Diet DVT Prophylaxsis: On heparin 5,000U Q8H (2) Acute kidney failure: (3) Right shoulder pain: (4) Wrist pain, left: (5) Aspiration into airway: (6) Hyperglycemia: (7) Hyponatremia: (8) DVT prophylaxis: Supervising Physician Co-Signing Physician Notes I personally examined the patient and verified all cotton points of history and exam, discussed case, and agree with decision making with Dr Hayes. Decompensated with hypoxia due to her recurrent pleural effusion overnight. This is now been drained by thoracic surgery, input greatly appreciated, her breathing feels better at rest. She is still very dyspneic with exertion. In spite of that she is still insistent on going home. We discussed risks and benefits of at least watching her into tomorrow given her deterioration last night of the recurrent effusion. She is still very much demanding to go home today. Given her weakness I at least convince her of the fact that she may need oxygen if she is to go home, and prior to even checking a 2 step pulse ox, nursing walks her to get a rough idea of her ambulatory oxygen need, and she probably is barely able to walk 20 feet before she fatigues dramatically and drops to 84%. That said to be safe in case she were to leave against advice we do have respiratory formally document her oxygenation, and make case management aware she may need home oxygen. I also personally reviewed the case with [facility] staff, noting that case management has informed us that the Dalvance is approved , and if she were to leave we would need them to see her the next day to dose the Dalvance regardless of whether or not she was previously scheduled, they expressed understanding of this Vitals noted, I see her both times with her father, she is sitting up in chair very appearing very anxious and hypervigilant but no physical distress. Breathing is unlabored, skin shows no rashes no pallor or icterus, neuro shows no focal deficits. MRSA endocarditis, with septic emboli to lungs, concern on wrist and shoulder infection -Repeat blood cultures negative thus far -Repeat echocardiogram shows an ongoing quite large vegetation, but good valve integrity, thus far on discussions with cardiothoracic surgery they did not feel that surgery would be of benefit for her. For now continue antibiotics and serial echoes -Continue supportive care -Continue current antibiotics until discharge, and then Dalvance that [facility] the next day and then every 2 weeks until stopped by infectious disease -CT abdomen pelvis, and MRI brain have been considered to further assess the downstream effects of the infection, but given her current anxiety and given that these would not actually change treatment as much is assess the damage, I believe it would probably be more harm than good right now as further testing may provoke her anxiety further questions Recurrent pleural effusion/ongoing hypoxic respiratory failure -Right now she appears not stable to go home, but were she to sign out AMA, to prevent her from having we would almost need to try to set up home oxygen. Fortunately at this point she appears unstable enough to even be able to leave against advice and less family were to help her, and they seem to be aware that right now it is better if they are not immediately in her picture given that they could be leveraged into bringing her home which may not be in her best interest. -Appreciate thoracic repeating thoracentesis -Continue to treat the septic emboli which appear to be the inflammatory fluid because of the recurrent effusions Anemia�no signs of acute blood loss, no hemodynamic instability. Improved status post transfusion of 1 unit. Likely poor p.o. intake/malnutrition combined with iatrogenic from prolonged multiple blood draws while here, follow periodically, and try to minimize blood draws Insomnia/anxiety -continue the trazodone at 50, Atarax as needed, continue reassurance as possible Edema -Third spacing of fluids given for resuscitation. Compression, and movement. This appears to be improving DVT prophylaxis -Heparin subcu Disposition -Her goal is to go home as soon as possible. Right now given her recurrent pleural effusion I felt it at least necessary to watch her into tomorrow to make sure this does not accumulate more. Her hypoxia certainly needs to be better or at least stabilized with oxygen for her to be remotely safe at home, the Dalvance at least has been set up, and this can be started the day after discharge. Right now however she does appear to weak especially with the hypoxia to be safe anywhere but here. Hopefully with ongoing treatment in time this will improve quickly, especially given that her anxiety is such that she wants to go home [facility]. Subjective Reduced LoC, sedated overnight with lorazepam + haloperidol overnight due to extreme agitation per nursing staff. Review of Systems Unobtainable due to reduced consciousness Physical Exam 2 Vital Signs (Past 24 Hours): Last Vital Signs Temp 37.0 C 10/25/18 10:16 Pulse 114 H 10/25/18 10:16 Resp 22 10/25/18 10:16 BP 144/92 H 10/25/18 10:16 Pulse Ox 99 10/25/18 10:16 Physical Exam: General: A&Ox3. NAD. Cooperative. HEENT: Atraumatic, normocephalic. Pulm: On BiPAP. Moderate air movement. Crackles heard at the dependent lobes bilaterally L>R. -wheezes, -rhonchi. Symmetrical chest rise. Cardiac: RRR, -mrg. Abdominal: Nontender, nondistended, soft. BS present. Extremity: Edema present in the lower legs bilaterally. Resident Activity Tracking Resident Involvement: Resident Care Provided Care Provided: [facility] _ (1) Aspiration into airway Encounter type: initial encounter Qualified Code(s): T17.908A - Unspecified foreign body in respiratory tract, part unspecified causing other injury, initial encounter
[2018-10-25] MEDS: OXYCODONE HCL 10 MG TABCR (OXYCONTIN) PO SCH ×3 (11:23→23:28)
[2018-10-25] MEDS: CHOLECALCIFEROL 1,000 UNITS TAB PO SCH (11:23)
[2018-10-25] MEDS: METOPROLOL TARTRATE 25 MG TAB PO SCH ×2 (11:23→21:35)
[2018-10-25] MEDS: DAPTOmycin 450 MG in SYRINGE 0 ML IV SCH (11:50)
--- NOTE | 2018-10-25 13:11 | Operative Report ---
DATE OF OPERATION: 10/25/2018 PREOPERATIVE DIAGNOSIS: Increasing left pleural effusion. POSTOPERATIVE DIAGNOSIS: Increasing left pleural effusion. PROCEDURE PERFORMED: Left thoracentesis under ultrasound guidance. SURGEON: Rodriguez Nguyen MD BODY PIERCER: LANNY Yanez. ANESTHESIA: Local. 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 She had multiple blood cultures positive for methicillin-resistant Staphylococcus aureus. I was asked to see her and performed a thoracentesis 5 days ago. We drained about 1600 mL of rust colored fluid. This was benign although it was transudative. At any rate, it did not grow anything, and the cytology was negative. She has had increasing shortness of breath, much of this has to do with her anxiety. She was sedated with Haldol and is not really responding verbally to me. She is on a BiPAP now to help her respirations. I discussed this in detail with the patient's father and with her primary service as well as the nursing staff. We elected to proceed with a thoracentesis for therapeutic reasons. DESCRIPTION OF PROCEDURE: With the patient in a right lateral decubitus position, her left chest was prepped and draped in the usual sterile fashion after an ultrasound had been used to pick a rib space where there was fluid. I was quite concerned about the fluid because there were multiple "fronds" floating back and forth, which she did not have before. This sometimes will indicate infection or complex pleural effusion. After calling appropriate timeout, a 25 gauge needle with 1% Xylocaine used to raise a skin wheal and anesthetized the deeper subcutaneous tissues, and then at about the eighth interspace in the posterior axillary line, a large bore needle was used to enter the pleural space, and we got free flowing rust colored fluid back. Guidewire was inserted in the needle and needle removed. A dilator was slid over the guidewire and then removed. A triple lumen catheter was then slid in 17 cm. Fluid was sent for an iSTAT, pH was 7.28. We then drained about 800 mL of fluid off. Her x-ray looked better with no pneumothorax afterwards. I removed the catheter. There was no further bleeding. An antimicrobial dressing was placed. The patient's father was present for this entire procedure. I attest to the content of the Intraoperative Record and any orders documented therein. Any exception s are noted below.
[2018-10-25] MEDS: RASPBERRY SYRUP 5 ML UDP PO SCH ×3 (14:12→17:08)
[2018-10-25] MEDS: VANCOMYCIN HCL 125 MG/2.5ML SOLN PO SCH ×3 (14:12→17:08)
--- NOTE | 2018-10-25 15:09 | Infectious Disease Progress Nt ---
Date of Service October 25, 2018 Assessment & Plan (1) Infective endocarditis: Patient with tricuspid valve endocarditis with large vegetation with septic pulmonary emboli, possible joint seeding, now clinically responding to antibiotics. Would continue on current IV antibiotics until, discharge, then given IVDU and he weighed indwelling central line, patient will then be transition to IV dalvabancin with 1500 mg dose every 2 weeks, likely for 2-3 additional doses. Discussed with hospitalist service. Will follow (2) MRSA (methicillin resistant Staphylococcus aureus) septicemia: Subjective Patient seen in follow-up for tricuspid valve endocarditis with MRSA with septic pulmonary emboli. Had agitation overnight, required some sedation. Now status post repeat thoracentesis. Results are pending. Otherwise offers no new complaints. Follow-up cultures remain negative. Review of Systems All systems reviewed & are unremarkable except as noted in HPI & below Physical Exam 2 Vital Signs (Past 24 Hours): Last Vital Signs Temp 36.9 C 10/25/18 11:29 Pulse 100 H 10/25/18 11:29 Resp 19 10/25/18 11:29 BP 135/89 10/25/18 11:29 Pulse Ox 98 10/25/18 11:29 Constitutional: WD/WN, vitals as above + ill appearing, + thin and comfortable; no acute distress Eyes: PERRL, conjunctivae normal, anicteric sclerae ENMT: external ear and nose normal, oropharynx normal Neck: trachea midline, no thyromegaly neck nontender Respiratory: normal respiratory effort, lungs clear to auscultation normal percussion and + tachypneic; no respiratory distress Auscultation: + rales Cardiovascular: Rate/Rhythm: regular rate and regular rhythm Heart Sounds: normal S1, normal S2 and + murmur; no gallop and no cardiac rub Gastrointestinal (Abdomen): normal bowel sounds, soft, nontender, no hepatosplenomegaly Inspection/Auscultation: abdomen normal to inspection and normal bowel sounds Percussion/Palpation: + abdomen tender; no hepatosplenomegaly and no abdominal mass Musculoskeletal: no cyanosis or clubbing, extremities motor strength 5/5 Head/Neck/Chest: normocephalic and head atraumatic Skin: no rashes, warm and dry no lesions Neurologic: moves all extremities and awake; no focal motor deficits Motor/ Sensory: no sensory deficit Psychiatric: A+Ox3, euthymic affect Lymphatic: no cervical or axillary lymphadenopathy no inguinal lymphadenopathy Results & Data Laboratory Results Short CBC 10/25/18 Range/Units 07:14 WBC 22.72 H (4.8-10.8) K/uL Hgb 7.2 L (12.0-16.0) g/dL Hct 22.4 L (37-47) % Plt Count 356 (130-400) K/uL BMP 10/25/18 07:14 Sodium 132 L Potassium 5.6 H D Chloride 105 Carbon Dioxide 22 BUN 12 Creatinine 1.03 Glucose 244 H Calcium 7.9 L Diagnostic Findings Microbiology 10/20/18 Unknown Pleural Fluid Gram Stain - Final 10/20/18 Unknown Pleural Fluid Aerobic and Anaerobic Culture - Final No growth 10/23/18 11:44 Blood Blood Culture - Preliminary No growth to date. 10/23/18 11:41 Blood Blood Culture - Preliminary No growth to date. 10/19/18 14:01 Blood Blood Culture - Final No growth 10/19/18 13:45 Blood Blood Culture - Final No growth 10/17/18 12:06 Blood Fungal Smear - Final 10/17/18 12:06 Blood Fungal Culture - Preliminary No yeast or fungus isolated - Report 1, Additional Report to Follow. 10/20/18 Unknown Pleural Fluid Acid Fast Bacilli Smear - Final 10/15/18 09:19 Blood Blood Culture - Final Staph aureus MRSA 10/15/18 09:17 Blood Blood Culture - Final Staph aureus MRSA 10/11/18 03:42 Blood Fungal Smear - Final 10/11/18 03:42 Blood Fungal Culture - Preliminary No yeast or fungus isolated - Report 2, Additional report to follow. 10/12/18 08:47 Blood Blood Culture - Final Staph aureus MRSA 10/14/18 17:30 Urine,Clean Catch Urine Culture - Final Christine glabrata 10/14/18 09:16 Blood Blood Culture - Final Staph aureus MRSA 10/14/18 08:44 Blood Blood Culture - Final Staph aureus MRSA 10/10/18 08:43 Blood Blood Culture - Final Staph aureus MRSA 10/10/18 08:37 Blood Blood Culture - Final Staph aureus MRSA 10/12/18 08:54 Blood Blood Culture - Final Staph aureus MRSA 10/07/18 13:00 Urine,Straight Cath Urine Culture - Final No growth - less than 1,000 colonies/mL. 10/07/18 12:26 Blood Blood Culture - Final Staph aureus MRSA 10/07/18 13:54 Blood Blood Culture - Final Staph aureus MRSA cc: ~ XR chest 1V portable CLINICAL HISTORY: Post thoracentesis COMPARISON STUDY: No previous studies for comparison. FINDINGS: The heart remains enlarged. There are persistent nodular bilateral pulmonary airspace opacities. There are persistent bilateral pleural effusions with slight interval decrease in size left pleural effusion. There is no evidence of pneumothorax status post thoracentesis.[ IMPRESSION: 1. No evidence of pneumothorax status post thoracentesis 2. Persistent bilateral nodular airspace opacities Electronically signed by: Aidan Kendrick M.D. 10/25/2018 10:19 AM Dictated: 10/25/18 1018 Transcribed: 10/25/18 1018
[2018-10-25] MEDS: rifAMPin 600 MG in DEXTROSE 5% 500 ML IV SCH (15:14)
--- NOTE | 2018-10-25 15:21 | Pharmacy Report ---
Pharmacy Glycemic Short Note 2 - Date of Service October 25, 2018 - Glycemic Short BSG Results (Last 24 hours): 10/24/18 10/24/18 10/25/18 16:29 20:12 07:14 Glucose 244 H POC Glucose 89 174 H 10/25/18 10/25/18 07:48 11:15 Glucose POC Glucose 250 H 223 H Outpatient Anti-diabetic Regimen: * Insulin glargine 32 units qAM * Novolog - unknown dose/schedule * A1c = 12.7 % on 10/07/18 ASSESSMENT: 10/25/18 * Ms. Katz received 38 units of insulin yesterday. BSGs were on the lower side; however, they are high now s/p a single dose of Solu-medrol for resp issues this AM. * Since this was a single dose and Solu-medrol typically has a duration of action < 24 hours, will hold off on giving additional basal insulin, especially since BSGs have started to fall already. Instead, will tighten the CF/CR for the remainder of today to provide more prandial coverage. These will be loosened back to current parameters tomorrow AM. 10/24/18: * Patient has been slightly/borderline hypoglycemic a couple of times in the past 24 hours, but fasting BSG is on the upper end of goal range. * Lantus dose appears to be appropriate. * Novolog parameters loosened slightly to provide less prandial/correctional insulin throughout the day. 10/22/18 * 37 yo F with T1DM admitted with DKA and MRSA bacteremia 2nd endocarditis, septic pulmonary emboli, probable seeding/septic joint * Outpatient control of T1DM poor based on A1c of 12.7%. * BSG's ranged 163-213 mg/dL yesterday, but are below goal today, thus far ranging 80-96 mg/dL * AM fasting BSG below goal today - OK to very slightly reduce Lantus administered (received 31 units yesterday) * Will very slightly loosen Novolog CHO ratio - patient consumed a large amount of CHO with breakfast (108 g) and BSG decreaed from 96 to 80 mg/dL PLAN FOR INPATIENT GLYCEMIC CONTROL: * Basal insulin - no change * Lantus 15 units SQ BID * Novolog - tighten parameters today only, to combat postprandial elevations from steroid * ACHS Goal Range: Low 110-140 mg/dL Correction Factor: 25 mg/dL/unit Prandial insulin: Per carb ratio of 1 unit per 9 grams CHO consumed Pharmacy will continue to monitor patient daily and write orders per [facility] inpatient glycemic control protocol. Thanks. * Please note that the plan above was derived based on current level of insulin resistance and hospital stress. These recommendations are appropriate for inpatient admission only. Plan of care upon discharge will need to be reassessed to avoid potential outpatient hypo/hyperglycemia.
[2018-10-25] MEDS: TRAZODONE HCL 50 MG TAB PO SCH (21:35)
[2018-10-25] MEDS ORDERED: SIMETHICONE 40 MG/0.6 ML 30ML PO ONE (23:45)
[2018-10-26] MEDS: VANCOMYCIN HCL 125 MG/2.5ML SOLN PO SCH ×4 (00:09→17:23)
[2018-10-26] MEDS: RASPBERRY SYRUP 5 ML UDP PO SCH ×4 (00:09→17:21)
[2018-10-26] MEDS: ALBUT/IPRATROP 3MG/0.5MG NEB 3 ML VIAL NEB SCH ×7 (01:12→19:39)
[2018-10-26] MEDS ORDERED: LORazepam 0.5 MG/1 ML VIAL IV STA (02:36)
[2018-10-26] MEDS ORDERED: LORazepam 0.5 MG TAB PO STA (02:46)
--- NOTE | 2018-10-26 07:25 | XRay Report ---
XR chest 1V portable HISTORY: 37 years-old Female effusion follow-up study in a patient with pleural effusions COMPARISON: Chest radiograph 10/25/2017, CTA of the chest 10/14/2018 TECHNIQUE: Portable AP view of the chest FINDINGS: Cardiac silhouette is normal in size. No pneumothorax. Bilateral pleural effusions, left greater than right appear unchanged. Multifocal multisegmental bilateral mixed interstitial and alveolar opacitie s are also unchanged. Multiple cavitary lesions redemonstrated. Bones of the chest appear grossly int act. IMPRESSION: 1. Extensive multisegmental bilateral mixed interstitial and alveolar opacities redemonstrated along with cavitary nodules suggestive of septic emboli with associated pneumonitis. Superimposed pulmonary edema would be difficult to exclude. 2. Unchanged bilateral pleural effusions. 3. No pneumothorax. The above report was generated using voice recognition software. It may contain grammatical, syntax o r spelling errors. Electronically signed by: [place] M.D. 10/26/2018 7:24 AM
[2018-10-26 07:33] LABS: Hematocrit (blood only) 23.4 % (37-47); Hemoglobin 7.6 g/dL (12.0-16.0); Mean Corpuscular Hgb Conc 32.5 g/dL (32-36); Mean Corpuscular Volume 84.8 fL (80-100); Mean Platelet Volume 8.6 fL (7.4-10.4); Platelet Count 409 K/uL (130-400); RDW Coefficient of Variation 16.3 % (11.5-14.5); RDW Standard Deviation 50.6 fL (36.4-46.3); Red Blood Count 2.76 M/uL (4.2-5.4); White Blood Count 14.65 K/uL (4.8-10.8)
[2018-10-26 08:03] LABS: BUN Creatinine Ratio 10.1 (10-20); Calcium 8.2 mg/dl (8.5-10.1); Creatinine Clr Calc Pharmacy 66.4 ml/min; Est GFR (Non-African American) 58.7; Potassium 4.4 mmol/L (3.5-5.1)
[2018-10-26] MEDS: OXYCODONE HCL 10 MG TABCR (OXYCONTIN) PO SCH (08:10)
[2018-10-26] MEDS: CHOLECALCIFEROL 1,000 UNITS TAB PO SCH (08:10)
[2018-10-26] MEDS: HEPARIN SOD 5,000 UNIT/0.5 ML VIAL SQ SCH ×2 (08:11→21:19)
[2018-10-26] MEDS: METOPROLOL TARTRATE 25 MG TAB PO SCH ×2 (08:11→21:17)
[2018-10-26] MEDS: INSULIN GLARGINE SOLOSTAR 100 UNITS/ML 3 ML PEN SC SCH ×2 (08:12→21:18)
[2018-10-26] MEDS: INSULIN ASPART 100 UNITS/ML 3 ML PEN SC SCH ×4 (08:28→21:17)
[2018-10-26] MEDS: clonazePAM 0.5 MG TAB PO SCH ×2 (09:49→21:17)
--- NOTE | 2018-10-26 10:04 | Pharmacy Report ---
Pharmacy Glycemic Short Note 2 - Date of Service October 26, 2018 - Glycemic Short BSG Results (Last 24 hours): 10/25/18 10/25/18 10/25/18 11:15 15:59 19:16 Glucose POC Glucose 223 H 182 H 203 H 10/25/18 10/26/18 10/26/18 19:57 06:54 08:26 Glucose 232 H POC Glucose 220 H 255 H Outpatient Anti-diabetic Regimen: * Insulin glargine 32 units qAM * Novolog - unknown dose/schedule * A1c = 12.7 % on 10/07/18 ASSESSMENT: 10/26/18 * Ms. Katz received 43 units of insulin yesterday. She only ended up receiving a single dose of Solu-medrol and her BSGs improved into the evening, so no additional basal was given. * This AM, however, BSGs are back into the mid-200s. Steroid dose should be worn off by this point. She must have some other stressors that are causing BSGs to be elevated. AM Lantus and Novolog doses have already been given this AM. Will plan to tighten Novolog back to yesterday's parameters, starting w/ lunch. Will also increase Lantus with this evening's dose if BSGs remain above 180 mg/dL. 10/25/18 * Ms. Katz received 38 units of insulin yesterday. BSGs were on the lower side; however, they are high now s/p a single dose of Solu-medrol for resp issues this AM. * Since this was a single dose and Solu-medrol typically has a duration of action < 24 hours, will hold off on giving additional basal insulin, especially since BSGs have started to fall already. Instead, will tighten the CF/CR for the remainder of today to provide more prandial coverage. These will be loosened back to current parameters tomorrow AM. 10/24/18: * Patient has been slightly/borderline hypoglycemic a couple of times in the past 24 hours, but fasting BSG is on the upper end of goal range. * Lantus dose appears to be appropriate. * Novolog parameters loosened slightly to provide less prandial/correctional insulin throughout the day. 10/22/18 * 37 yo F with T1DM admitted with DKA and MRSA bacteremia 2nd endocarditis, septic pulmonary emboli, probable seeding/septic joint * Outpatient control of T1DM poor based on A1c of 12.7%. * BSG's ranged 163-213 mg/dL yesterday, but are below goal today, thus far ranging 80-96 mg/dL * AM fasting BSG below goal today - OK to very slightly reduce Lantus administered (received 31 units yesterday) * Will very slightly loosen Novolog CHO ratio - patient consumed a large amount of CHO with breakfast (108 g) and BSG decreaed from 96 to 80 mg/dL PLAN FOR INPATIENT GLYCEMIC CONTROL: * Basal insulin - increase * Lantus BID based on the following scale: * 15 units for BSG < 180 * 17 units for BSG 180 or above * Novolog - tighten CF/CR back to yesterday's parameters * ACHS Goal Range: Low 110-140 mg/dL Correction Factor: 25 mg/dL/unit Prandial insulin: Per carb ratio of 1 unit per 9 grams CHO consumed Pharmacy will continue to monitor patient daily and write orders per [facility] inpatient glycemic control protocol. Thanks. * Please note that the plan above was derived based on current level of insulin resistance and hospital stress. These recommendations are appropriate for inpatient admission only. Plan of care upon discharge will need to be reassessed to avoid potential outpatient hypo/hyperglycemia.
[2018-10-26 10:21] LABS: Albumin Level 1.6 gm/dl (3.4-5.0); Bilirubin Direct 0.2 mg/dl (0-0.2); Bilirubin,Total 0.3 mg/dl (0.2-1); Total Protein 7.9 gm/dl (6.4-8.2)
--- NOTE | 2018-10-26 11:10 | Progress Note ---
DATE: 10/26/2018 Princess was seen today. She is sitting on the side of bed with a facemask with excellent saturations. She is off the BiPAP this morning. Heart rate is also down to 108 when I was in the room. She appears to be exhausted. Her aeration on her left is better. I removed the dressing from her thoracentesis and these sites are all clean. She has a few rhonchi. I discussed this with the residents and I believe that I would get Dr. Mccormick to evaluate this patient from a pulmonary standpoint. I do not think the pleural effusions are having a major impact on her. She did not have that much improvement after we drained approximately 800 mL yesterday. I reviewed the fluid. Her LDH is 131 with a glucose of 237. I do not think we are dealing with an empyema, although a bit concerned about the ultrasound as it showed some complex debris in the fluid, although I did not see loculations per se. I would like to hold off on a PleurX. I would await and I am interested in Dr. Mccormick's opinion and will discuss this with him after he evaluates the patient. TORRIE
[2018-10-26] MEDS: FUROSEMIDE 40 MG TAB PO SCH (12:46)
[2018-10-26] MEDS ORDERED: LORazepam 0.5 MG TAB PO PRN ×2 (14:37→15:11)
[2018-10-26] MEDS: CEFTAROLINE FOSAMIL ACETATE 600 MG in SODIUM CHLORIDE 0.9% 250 ML IV SCH (16:39)
[2018-10-26] MEDS: DAPTOmycin 450 MG in SYRINGE 0 ML IV SCH (16:39)
[2018-10-26] MEDS ORDERED: FUROSEMIDE 40 MG TAB PO ONE (16:47)
--- NOTE | 2018-10-26 18:02 | Family Medicine Progress Note ---
Date of Service October 26, 2018 Assessment & Plan (1) MRSA (methicillin resistant Staphylococcus aureus) septicemia: Princess is a 37-year-old female with a past medical history of IV drug abuse and type 1 diabetes with resolved DKA being currently managed for MRSA endocarditis with septicemia. Infective endocarditis -Repeat echo with trapped vegetations, minimal to no TR, pleural effusions. � Was improving on ceftaroline + rifampin + dapto but lost IV access - Linezolid 600mg PO BID CANDIDO until IV access can be established. - Repeat BCx2 on 10/25 and 10/19 with ng - Pending further discussion on best treatment setting and IV tx access. No access was able to be established via PICC/Midline, is not a good central line candidate, and cannot be discharged on a port 2/2 IVDA. - Not medically ready for discharge. If she were to be discharged, would time abx right before discharge in the evening ~9pm then followup to [facility] next day for infusion. Dalbavancin preauth approved for 10/25/18 to . Cannot receive infusion on day of discharge. Acute hypoxic respiratory failure �Multifactorial. In the setting of multiple septic emboli. Regurg 2/2 endocarditis/valvular disease may be contributing to pulmonary edema difficult to visualize on the background of septic emboli. - Lasix 40mg PO qAM. Second afternoon dose given today. Follow Cr and watch for prerenal. - ABG 10/25/18: 7.45/33/74/22 - s/p second pleurocentesis 10/25, removed 800mL transudative fluid removed - O2, Bipap as needed. - Increasingly insistent on being discharged home, given her requirement of 3L- Bipap she is not medically safe for discharge. Anxiety/Insomnia - Clonazepam 0.5mg PO BID CANDIDO - Lorazepam 0.5mg PO Q6H PRN - Trazodone 50mg PO PRN - Hydroxyzine 25mg PO PRN - Will start escitalopram intial dose tomorrow morning. Follow QTp. C. difficile diarrhea - Vanco 125mg PO Q6H Day #8/ Anemia - Hgb 7.6 today - s/p transfusion of 1 unit with appropriate hgb rise from 6.8 to 7.8 - Fecal occult blood negative - No signs of intravascular hemolysis on smear - Likely in setting of endocarditis and poor nutrition on a background of repeat phlebomoty - Iron 325mg PO BIDM T2DM - Glucose checks AC/HS - Daily BMP, SG - SSI correction 40mg/dl/unit, 1:14 Carb Ratio HTN - Metoprolol Tartrate 25mg BID - Hold for BP systolic < 100, HR<60. Multifocal pain �Multiple septic emboli - History of buprenorphine tx (8mg BID [employer] dose), hx of IVDA of buprenorphine. � Oxycodone LA 10mg PO BID � Oxycodone IR 5mg Q6H PRN IV drug abuse �History of injecting buprenorphine. �Will require counseling and possible rehab on discharge - Attempting to place into direct f/u with PCP and possibly methadone clinic when medically stable Acute renal failure. resolved -likely secondary to septic picture + prerenal. - Continue to follow BMP/Cr/UOP Bacteruria (resolved) - UA Positive for bacteria and nitrites, UC shows minimal growth and is likely contaminant versus mild kami in the setting of stasis DKA (resolved) �Blood sugar 1220 on admission �Treated with DKA protocol on admit Diet: Tolerating PO well, T1 Diabetic Diet. Low albumin + boost/yogurt with meals. DVT Prophylaxsis: On heparin 5,000U Q8H (2) Acute kidney failure: (3) Right shoulder pain: (4) Wrist pain, left: (5) Aspiration into airway: (6) Hyperglycemia: (7) Hyponatremia: (8) DVT prophylaxis: Supervising Physician Co-Signing Physician Notes Resident Physician Supervision Note: I independently interviewed and examined the patient and verified the cotton history and physical, reviewed labs and image studies, discussed the case with the resident Dr. Hayes and agree with the findings and care plan. Subjective Princess feels very short of breath this morning. She endorses anxiety. Has difficulty breathing on less than 3L oxygen. Is eating OK but has a decreased appetite. Denies fever, chills, sweats. No nausea, vomiting, diarrhea, constipation. Denies abdomianl pain. Revisited in the evening, her father was present. Continues to endorse anxiety, expresses frustration at being unable to go home. Feels her breathing is unchanged at baseline, but improved on bipap. Physical Exam 2 Vital Signs (Past 24 Hours): Last Vital Signs Temp 36.9 C 10/26/18 15:51 Pulse 118 H 10/26/18 16:00 Resp 24 10/26/18 15:51 BP 169/103 H 10/26/18 15:51 Pulse Ox 94 10/26/18 15:51 Physical Exam: General: A&Ox3. NAD. Cooperative. HEENT: Atraumatic, normocephalic. Pulm: On BiPAP. Moderate air movement. Crackles heard at the dependent lobes bilaterally. -wheezes, -rhonchi. Symmetrical chest rise. Cardiac: RRR, -mrg. Abdominal: Nontender, nondistended, soft. BS present. Extremity: Edema present in the lower legs bilaterally. Results & Data Laboratory Results Abnormal lab results 10/25/18 10/25/18 10/26/18 Range/Units 19:16 19:57 06:54 WBC 14.65 H (4.8-10.8) K/uL RBC 2.76 L (4.2-5.4) M/uL Hgb 7.6 L (12.0-16.0) g/dL Hct 23.4 L (37-47) % RDW Std Deviation 50.6 H (36.4-46.3) fL RDW Coeff of Clay 16.3 H (11.5-14.5) % Plt Count 409 H (130-400) K/uL Sodium (136-145) mmol/L Carbon Dioxide (21-32) mmol/L Glucose (70-99) mg/dl POC Glucose 203 H 220 H (70-99) Calcium (8.5-10.1) mg/dl ALT (12-78) U/L Alkaline Phosphatase (45-117) U/L Albumin (3.4-5.0) gm/dl Prealbumin (20-40) mg/dl 10/26/18 10/26/18 10/26/18 Range/Units 06:54 06:54 08:26 WBC (4.8-10.8) K/uL RBC (4.2-5.4) M/uL Hgb (12.0-16.0) g/dL Hct (37-47) % RDW Std Deviation (36.4-46.3) fL RDW Coeff of Clay (11.5-14.5) % Plt Count (130-400) K/uL Sodium 135 L (136-145) mmol/L Carbon Dioxide 20 L (21-32) mmol/L Glucose 232 H (70-99) mg/dl POC Glucose 255 H (70-99) Calcium 8.2 L (8.5-10.1) mg/dl ALT 9 L (12-78) U/L Alkaline Phosphatase 159 H (45-117) U/L Albumin 1.6 L (3.4-5.0) gm/dl Prealbumin 11.0 L (20-40) mg/dl 10/26/18 Range/Units 11:18 WBC (4.8-10.8) K/uL RBC (4.2-5.4) M/uL Hgb (12.0-16.0) g/dL Hct (37-47) % RDW Std Deviation (36.4-46.3) fL RDW Coeff of Clay (11.5-14.5) % Plt Count (130-400) K/uL Sodium (136-145) mmol/L Carbon Dioxide (21-32) mmol/L Glucose (70-99) mg/dl POC Glucose 197 H (70-99) Calcium (8.5-10.1) mg/dl ALT (12-78) U/L Alkaline Phosphatase (45-117) U/L Albumin (3.4-5.0) gm/dl Prealbumin (20-40) mg/dl Medications Administered Current Inpatient Medications Acetaminophen (Ofirmev) 1,000 mg IV Q8H PRN PRN Reason: Fever Stop: 11/06/18 22:51 Last Admin: 10/12/18 00:18 Dose: 1,000 mg Albuterol (Duoneb) 3 ml NEB QIDR CANDIDO Stop: 11/24/18 07:59 Last Admin: 10/26/18 14:39 Dose: 3 ml Clonazepam (Klonopin) 0.5 mg PO BID CANDIDO Stop: 11/25/18 08:59 Last Admin: 10/26/18 09:49 Dose: 0.5 mg Dextrose (Dextrose 50%) 25 - 50 ml IV UD PRN; Protocol PRN Reason: Hypoglycemia Protocol Stop: 11/06/18 21:31 Last Admin: 10/08/18 21:11 Dose: 25 ml Ferrous Sulfate (Feosol) 325 mg PO BIDM [facility] Stop: 11/26/18 07:59 Furosemide (Lasix) 40 mg PO QAM CANDIDO Stop: 11/25/18 12:14 Last Admin: 10/26/18 12:46 Dose: 40 mg Glucagon (Glucagen) 1 mg IM UD PRN; Protocol PRN Reason: Hypoglycemia Protocol Stop: 11/06/18 21:31 Glucose (Glucose 40%) 15 - 30 gm PO UD PRN; Protocol PRN Reason: Hypoglycemia Protocol Stop: 11/06/18 21:31 Glucose (Dex4 Glucose) 4 - 8 tabs PO UD PRN; Protocol PRN Reason: Hypoglycemia Protocol Stop: 11/06/18 21:31 Heparin Sodium (Porcine) (Heparin Sodium (Porcine)) 5,000 units SQ Q12 CANDIDO Stop: 11/21/18 20:59 Last Admin: 10/26/18 08:11 Dose: 5,000 units Hydroxyzine HCl (Vistaril) 25 mg PO HS PRN PRN Reason: breakthrough insomnia Stop: 11/18/18 15:03 Last Admin: 10/26/18 08:24 Dose: 25 mg Rifampin 600 mg/ Dextrose 510 mls @ 167 mls/hr IV DAILY@1700 CANDIDO Stop: 11/24/18 16:59 Last Infusion: 10/25/18 20:24 Dose: Infused Daptomycin 450 mg/ Syringe 9 mls @ 4.5 mls/min IV Q24H CANDIDO; Protocol Stop: 10/29/18 07:59 Last Admin: 10/26/18 16:39 Dose: Not Given Ceftaroline Fosamil 600 mg/ (Sodium Chloride) 270 mls @ 270 mls/hr IV Q12H CANDIDO ; Protocol Stop: 10/28/18 20:59 Last Admin: 10/26/18 16:39 Dose: Not Given Insulin Aspart (Novolog Flexpen) 0 units SC ACHS CANDIDO; Protocol Stop: 11/25/18 07:29 Last Admin: 10/26/18 17:20 Dose: Not Given Insulin Glargine (Lantus Solostar Pen) 0 units SC BID CANDIDO; Protocol Stop: 11/25/18 20:59 Lactulose (Chronulac) 30 gm PO Q8H PRN PRN Reason: Constipation Stop: 11/11/18 09:32 Last Admin: 10/13/18 08:57 Dose: 30 gm Linezolid (Zyvox) 600 mg PO BID CANDIDO Stop: 12/07/18 20:59 Lorazepam (Ativan) 0.5 mg PO Q6H PRN PRN Reason: Anxiety Stop: 11/25/18 15:10 Metoprolol Tartrate (Lopressor) 25 mg PO BID [facility] Stop: 11/16/18 20:59 Last Admin: 10/26/18 08:11 Dose: 25 mg Miscellaneous (Carbohydrates For Hypoglycemia) 15 - 30 gm PO UD PRN PRN Reason: Hypoglycemia Treatment Stop: 11/06/18 21:31 Last Admin: 10/23/18 16:32 Dose: 15 gm Miscellaneous Information (Consult Glycemic Management Pharmacy) 1 ea N/A UD PRN PRN Reason: Consult Stop: 11/06/18 21:38 Miscellaneous Information () 1 ea N/A UD PRN PRN Reason: Consult Stop: 11/09/18 11:14 Miscellaneous Information (Consult) 1 ea N/A UD PRN PRN Reason: Consult Stop: 11/19/18 07:59 Naloxone HCl (Narcan) 0.2 mg IV PRN PRN PRN Reason: OVER Sedation Stop: 11/15/18 09:57 Ondansetron HCl (Zofran) 4 mg IV Q6H PRN PRN Reason: Nausea Stop: 11/06/18 14:59 Oxycodone HCl (Oxycontin) 10 mg PO BID [facility] Stop: 10/30/18 09:59 Last Admin: 10/26/18 08:10 Dose: 10 mg Oxycodone HCl (Roxicodone) 5 mg PO Q6H PRN PRN Reason: pain Stop: 10/30/18 09:59 Polyethylene Glycol (Miralax Powder Packet) 17 gm PO DAILY PRN PRN Reason: Constipation Stop: 11/06/18 14:59 Raspberry (Raspberry) 5 ml PO Q6 [facility] Stop: 11/01/18 00:00 Last Admin: 10/26/18 17:21 Dose: 5 ml Rifampin (Rifampin) 600 mg PO DAILY@1999 [facility] Stop: 11/09/18 19:59 Trazodone HCl (Desyrel) 100 mg PO HS [facility] Stop: 11/25/18 20:59 Vancomycin HCl (Vancomycin Hcl) 125 mg PO Q6 [facility] Stop: 10/28/18 00:00 Last Admin: 10/26/18 17:23 Dose: 125 mg Vitamin D (Vitamin D3) [facility] Stop: 11/09/18 08:59 Last Admin: 10/26/18 08:10 Dose: 2,000 units Resident Activity Tracking Resident Involvement: Resident Care Provided Care Provided: Adult [facility] Medicine _ (1) Aspiration into airway Encounter type: initial encounter Qualified Code(s): T17.908A - Unspecified foreign body in respiratory tract, part unspecified causing other injury, initial encounter
[2018-10-26] MEDS: LINEZOLID 600 MG TAB PO SCH (21:17)
[2018-10-26] MEDS: TRAZODONE HCL 100 MG TAB PO SCH (21:19)
[2018-10-26] MEDS: LORazepam 0.5 MG TAB PO PRN (21:32)
[2018-10-26] MEDS: rifAMPin 300 MG CAPSULE PO SCH (22:12)
[2018-10-27] MEDS: RASPBERRY SYRUP 5 ML UDP PO SCH ×5 (01:02→22:23)
[2018-10-27] MEDS: VANCOMYCIN HCL 125 MG/2.5ML SOLN PO SCH ×5 (01:02→22:26)
[2018-10-27] MEDS ORDERED: GABAPENTIN 300 MG CAP PO ONE (02:02)
[2018-10-27 06:39] LABS: Hematocrit (blood only) 24.1 % (37-47); Hemoglobin 7.6 g/dL (12.0-16.0); Mean Corpuscular Hgb Conc 31.5 g/dL (32-36); Mean Corpuscular Volume 84.6 fL (80-100); Platelet Count 442 K/uL (130-400); RDW Coefficient of Variation 16.4 % (11.5-14.5); RDW Standard Deviation 50.7 fL (36.4-46.3); Red Blood Count 2.85 M/uL (4.2-5.4); White Blood Count 15.97 K/uL (4.8-10.8)
--- NOTE | 2018-10-27 07:16 | XRay Report ---
XR chest 1V portable CLINICAL HISTORY: 37 years-old Female presenting with dyspnea. TECHNIQUE: Portable upright AP view of the chest was obtained. COMPARISON: 10/26/2018. FINDINGS: Cardiomediastinal silhouette normal. Redemonstration of extensive patchy bilateral pulmonary opacitie s with a mid to basilar predominance. These have overall increased in density with a progressive wors ening evident when comparing prior radiographs over the last 4 days. Small right and moderate left pl eural effusions. The left pleural effusion may be loculated. No pneumothorax. Osseous structures norm al. Upper abdomen normal. IMPRESSION: 1. Slowly progressive worsening of multifocal bilateral pulmonary infiltrates, most concerning for m ultifocal pneumonia. Central cavitation and concern for septic emboli best demonstrated on prior cros s-sectional imaging from 10/14/2018. 2. Small right and moderate left pleural effusions. The left pleural effusion may be loculated, whic h raises concern for empyema. Electronically signed by: Alfredo Ascencio M.D. 10/27/2018 7:15 AM
[2018-10-27 07:24] LABS: Calcium 8.6 mg/dl (8.5-10.1); Creatinine Clr Calc Pharmacy 82.3 ml/min; Est GFR (African American) 88.2; Est GFR (Non-African American) 76.1; Potassium 4.2 mmol/L (3.5-5.1)
[2018-10-27] MEDS: LINEZOLID 600 MG TAB PO SCH ×2 (07:46→20:55)
[2018-10-27] MEDS: clonazePAM 0.5 MG TAB PO SCH ×2 (07:46→20:54)
[2018-10-27] MEDS: INSULIN ASPART 100 UNITS/ML 3 ML PEN SC SCH ×5 (07:49→22:13)
[2018-10-27] MEDS: HEPARIN SOD 5,000 UNIT/0.5 ML VIAL SQ SCH (07:50)
[2018-10-27] MEDS: FUROSEMIDE 40 MG TAB PO SCH ×2 (07:51→17:34)
[2018-10-27] MEDS: METOPROLOL TARTRATE 25 MG TAB PO SCH ×2 (07:51→20:54)
[2018-10-27] MEDS: FERROUS SULFATE 325 MG TAB PO SCH ×2 (07:52→17:35)
[2018-10-27] MEDS: CHOLECALCIFEROL 1,000 UNITS TAB PO SCH (07:53)
[2018-10-27] MEDS ORDERED: FERROUS SULFATE 325 MG TAB PO SCH (08:00)
[2018-10-27] MEDS: ALBUT/IPRATROP 3MG/0.5MG NEB 3 ML VIAL NEB SCH ×4 (08:29→19:52)
[2018-10-27] MEDS: INSULIN GLARGINE SOLOSTAR 100 UNITS/ML 3 ML PEN SC SCH ×2 (08:52→21:07)
[2018-10-27] MEDS ORDERED: FUROSEMIDE 40 MG TAB PO ONE (09:30)
--- NOTE | 2018-10-27 10:03 | Pharmacy Report ---
Pharmacy Glycemic Short Note 2 - Date of Service October 27, 2018 - Glycemic Short BSG Results (Last 24 hours): 10/26/18 10/26/18 10/26/18 11:18 16:36 21:12 Glucose POC Glucose 197 H 89 150 H 10/27/18 10/27/18 06:11 07:32 Glucose 101 H POC Glucose 91 Outpatient Anti-diabetic Regimen: * Insulin glargine 32 units qAM * Novolog - unknown dose/schedule * A1c = 12.7 % on 10/07/18 ASSESSMENT: 10/27/18 * Ms. Katz received 38 units of insulin yesterday. BSGs improved significantly throughout the day and she did not end up receiving higher doses of the Lantus. I'm concerned that the current Novolog parameters may be too aggressive now that BSGs have improved. Will loosen today. * Basal dose will be kept the same, allowing for a slightly higher dose if BSGs are > 180 mg/dL 10/26/18 * Ms. Katz received 43 units of insulin yesterday. She only ended up receiving a single dose of Solu-medrol and her BSGs improved into the evening, so no additional basal was given. * This AM, however, BSGs are back into the mid-200s. Steroid dose should be worn off by this point. She must have some other stressors that are causing BSGs to be elevated. AM Lantus and Novolog doses have already been given this AM. Will plan to tighten Novolog back to yesterday's parameters, starting w/ lunch. Will also increase Lantus with this evening's dose if BSGs remain above 180 mg/dL. 10/25/18 * Ms. Katz received 38 units of insulin yesterday. BSGs were on the lower side; however, they are high now s/p a single dose of Solu-medrol for resp issues this AM. * Since this was a single dose and Solu-medrol typically has a duration of action < 24 hours, will hold off on giving additional basal insulin, especially since BSGs have started to fall already. Instead, will tighten the CF/CR for the remainder of today to provide more prandial coverage. These will be loosened back to current parameters tomorrow AM. 10/24/18: * Patient has been slightly/borderline hypoglycemic a couple of times in the past 24 hours, but fasting BSG is on the upper end of goal range. * Lantus dose appears to be appropriate. * Novolog parameters loosened slightly to provide less prandial/correctional insulin throughout the day. 10/22/18 * 37 yo F with T1DM admitted with DKA and MRSA bacteremia 2nd endocarditis, septic pulmonary emboli, probable seeding/septic joint * Outpatient control of T1DM poor based on A1c of 12.7%. * BSG's ranged 163-213 mg/dL yesterday, but are below goal today, thus far ranging 80-96 mg/dL * AM fasting BSG below goal today - OK to very slightly reduce Lantus administered (received 31 units yesterday) * Will very slightly loosen Novolog CHO ratio - patient consumed a large amount of CHO with breakfast (108 g) and BSG decreaed from 96 to 80 mg/dL PLAN FOR INPATIENT GLYCEMIC CONTROL: * Basal insulin - no change * Lantus BID based on the following scale: * 15 units for BSG < 180 * 17 units for BSG 180 or above * Novolog - loosen CF/CR * ACHS Goal Range: Low 110-140 mg/dL Correction Factor: 30 mg/dL/unit Prandial insulin: Per carb ratio of 1 unit per 10 grams CHO consumed Pharmacy will continue to monitor patient daily and write orders per [facility] inpatient glycemic control protocol. Thanks. Discharge Recommendations: * CDE note indicates frequent missed doses as an outpatient, which is most likely the reason for high A1c * Recommend to continue same regimen on discharge with close outpt f/u with endo / PCP * Patient would benefit from a sliding scale using correctional insulin but not sure if she would be amenable to this since she already struggles with noncompliance
[2018-10-27] MEDS: LORazepam 0.5 MG TAB PO PRN ×3 (10:37→22:23)
--- NOTE | 2018-10-27 12:08 | Surgery Consultation ---
Date of Consultation October 27, 2018 Assessment & Plan (1) Infective endocarditis: We are planning to place an Aport tunneled central venous access catheter. I explained to her the procedure and the possible complications. She will need to be off her anticoagulation therapy and so we will plan to place this tomorrow. History of Present Illness Reason for Consultation: Placement of Aport Requesting Physician: Cathryn Carr Attending Physician: Cathryn Carr History of Present Illness I have been asked by Dr. Carr to see this 37-year-old female who was admitted with diagnosis of infective endocarditis. Blood cultures grew MRSA that was also only interim immediately sensitive to vancomycin. She is presently on daptomycin and ceftaroline. She has extremely difficult to obtain peripheral access. We have been asked to place an Aport central venous access catheter. She is presently on subcutaneous heparin. She is on no other anticoagulants. She had a central line placed via a right internal jugular approach but has never had cannulation of either the subclavian veins. 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 She is requiring CPAP to maintain O2 saturations. She has had thoracentesis for transudate of fluid on 2 occasions. Allergies Allergy/AdvReac Type Severity Reaction Status Date / Time iodine Allergy Severe RASH Verified 10/07/18 13:01 Iodinated Contrast- Oral and Allergy Unknown RASH Verified 10/07/18 13:01 IV Dye Home Medications Home Medications Medication Instructions Recorded Confirmed Type buprenorphine HCl 8 mg SUBLINGUAL BID 10/07/18 10/07/18 History insulin aspart U-100 [Novolog 1 dose SUBCUT DIRECTED 10/07/18 10/07/18 History Flexpen U-100 Insulin] insulin glargine [Basaglar KwikPen 32 units SUBCUT QAM 10/07/18 10/07/18 History U-100 Insulin] dalbavancin 1,500 mg IV UD #1 ea 10/23/18 Rx Patient History Medical History Type 1 diabetes (Chronic) MRSA (methicillin resistant staph aureus) culture positive (Chronic) Abscess of forearm, right Drug abuse, IV (Acute) Hyperglycemia (Resolved) Retroperitoneal abscess Social History Current Living Situation: Family Current Living Situation Comment: LIVES ALONE WITH CHILDREN. Other Information That Helps Us Care for You: No Feels Safe at Home: Yes Safety Concerns: Feels Safe At This Time Smoking Status: Current every day smoker Tobacco Type: cigarettes Cigarettes per Day: 10 Do You Dip or Chew Tobacco: No Second Hand Exposure: Yes Tobacco Cessation Education Requested by Patient: Yes Hx Alcohol Use: No Hx Substance Use: Yes substance use type: marijuana, IV drugs, methamphetamine and other Substance Use Type Other:: SUBUTEX Last Used Substance: Days (ago) Last Used Substance Other:: SUNDAY Beliefs That Will Affect Care: None Communication Ability: Effective Physical Exam 2 Vital Signs (Past 24 Hours): Last Vital Signs Temp 36.7 C 10/27/18 11:51 Pulse 118 H 10/27/18 11:51 Resp 20 10/27/18 11:51 BP 153/101 H 10/27/18 11:51 Pulse Ox 94 10/27/18 11:51 Constitutional: + ill appearing Respiratory: Scattered rhonchi Cardiovascular: Rate/Rhythm: regular rate and regular rhythm Chest (Breasts): Additional Comments: No scars or deformities of the anterior chest wall in either subclavian area Results & Data Laboratory Results 10/27/18 10/27/18 10/27/18 Range/Units 11:18 07:32 06:11 WBC (4.8-10.8) K/uL RBC (4.2-5.4) M/uL Hgb (12.0-16.0) g/dL Hct (37-47) % MCV (80-100) fL MCH (25-34) pg MCHC (32-36) g/dL RDW Std Deviation (36.4-46.3) fL RDW Coeff of Clay (11.5-14.5) % Plt Count (130-400) K/uL MPV (7.4-10.4) fL Sodium 136 (136-145) mmol/L Potassium 4.2 (3.5-5.1) mmol/L Chloride 107 (98-107) mmol/L Carbon Dioxide 23 (21-32) mmol/L Anion Gap 6.0 (3-11) BUN 11 (7-18) mg/dl Creatinine 0.96 (0.6-1.2) mg/dl Est Cr Clr Drug Dosing 82.3 ml/min Est GFR ( Amer) 88.2 Est GFR (Non-Af Amer) 76.1 BUN/Creatinine Ratio 12.0 (10-20) Glucose 101 H (70-99) mg/dl POC Glucose 83 91 (70-99) Calcium 8.6 (8.5-10.1) mg/dl 10/27/18 10/26/18 10/26/18 Range/Units 06:11 21:12 16:36 WBC 15.97 H (4.8-10.8) K/uL RBC 2.85 L (4.2-5.4) M/uL Hgb 7.6 L (12.0-16.0) g/dL Hct 24.1 L (37-47) % MCV 84.6 (80-100) fL MCH 26.7 (25-34) pg MCHC 31.5 L (32-36) g/dL RDW Std Deviation 50.7 H (36.4-46.3) fL RDW Coeff of Clay 16.4 H (11.5-14.5) % Plt Count 442 H (130-400) K/uL MPV 9.0 (7.4-10.4) fL Sodium (136-145) mmol/L Potassium (3.5-5.1) mmol/L Chloride (98-107) mmol/L Carbon Dioxide (21-32) mmol/L Anion Gap (3-11) BUN (7-18) mg/dl Creatinine (0.6-1.2) mg/dl Est Cr Clr Drug Dosing ml/min Est GFR ( Amer) Est GFR (Non-Af Amer) BUN/Creatinine Ratio (10-20) Glucose (70-99) mg/dl POC Glucose 150 H 89 (70-99) Calcium (8.5-10.1) mg/dl
[2018-10-27] MEDS ORDERED: HEPARIN 100 UNIT/ML 5ML FLUSH ONE (12:13)
[2018-10-27] MEDS ORDERED: LIDOCAINE HCL 1% 20 ML VIAL ONE (12:14)
--- NOTE | 2018-10-27 14:19 | Family Medicine Progress Note ---
Date of Service October 27, 2018 Assessment & Plan (1) MRSA (methicillin resistant Staphylococcus aureus) septicemia: Princess is a 37-year-old female with a past medical history of IV drug abuse and type 1 diabetes with resolved DKA being currently managed for MRSA endocarditis with septicemia. Infective endocarditis - Repeat echo with trapped vegetations, minimal to no TR, pleural effusions. � Was improving on ceftaroline + rifampin + dapto but lost IV access - Linezolid 600mg PO BID CANDIDO until IV access can be established. - Repeat BCx2 on 10/25 and 10/19 with ng - Pending Port placement by Dr. Thapa tomorrow morning. She is not an ideal port candidate, however, given her need for IV Abx, acute illness, and lack of sites for peripheral/PICC/Midline access with central line being a poor choice a port is the best option available. Evening heparin held in anticipation of port placement. - Not medically ready for discharge. If she were to be discharged, would time abx right before discharge in the evening ~9pm then followup to [facility] admitting clerk next day for infusion. Dalbavancin preauth approved for 10/25/18 to . Cannot receive infusion on day of discharge. Acute hypoxic respiratory failure - Worse this morning, but with SPO2 Sat >93%. �Multifactorial. In the setting of multiple septic emboli. Regurg 2/2 endocarditis/valvular disease may be contributing to pulmonary edema difficult to visualize on the background of septic emboli. Has low oncotic pressure as well due to low protein and hypoalbuminemia. - + Additional 40mg lasix dose this AM. - Lasix 40mg PO BID. Follow Cr, volume overloaded at present. - ABG 10/25/18: 7.45/33/74/22 - s/p second pleurocentesis 10/25, removed 800mL transudative fluid removed - O2, Bipap as needed. Pleural effusion - s/p thoracentesis - transudate - likely sec to hypoproteinemia - supplement oral protein intake. Anxiety/Insomnia - Clonazepam 0.5mg PO BID CANDIDO - Lorazepam 0.5mg PO Q6H PRN - Trazodone 50mg PO PRN - Hydroxyzine 25mg PO PRN - ECG Pending - Escitalopram 10mg PO daily if QTp will tolerate C. difficile diarrhea - Vanco 125mg PO Q6H Day #9/10 Anemia - Hgb 7.6 today - s/p transfusion of 1 unit with appropriate hgb rise from 6.8 to 7.8 - Fecal occult blood negative - No signs of intravascular hemolysis on smear - Likely in setting of endocarditis and poor nutrition on a background of repeat phlebomoty - Iron 325mg PO BIDM T2DM - Glucose checks AC/HS - Daily BMP, SG - SSI correction 40mg/dl/unit, 1:14 Carb Ratio HTN - Metoprolol Tartrate 25mg BID - Hold for BP systolic < 100, HR<60. Multifocal pain �Multiple septic emboli - History of buprenorphine tx (8mg BID MOSAICIST dose), hx of IVDA of buprenorphine. � Previously on oxycodone PRN, held & OK with pt to avoid opioids. IV drug abuse �History of injecting buprenorphine. �Will require counseling and possible rehab on discharge - Attempting to place into direct f/u with PCP and possibly methadone clinic when medically stable Acute renal failure. (resolved) -likely secondary to septic picture + prerenal. - Continue to follow BMP/Cr/UOP Bacteruria (resolved) - UA Positive for bacteria and nitrites, UC shows minimal growth and is likely contaminant versus mild kami in the setting of stasis DKA (resolved) �Blood sugar 1220 on admission �Treated with DKA protocol on admit Diet: Tolerating PO well, T1 Diabetic Diet. Low albumin + boost/yogurt with meals. DVT Prophylaxsis: On heparin 5,000U Q8H (2) Acute kidney failure: (3) Right shoulder pain: (4) Wrist pain, left: (5) Aspiration into airway: (6) Hyperglycemia: (7) Hyponatremia: (8) DVT prophylaxis: Supervising Physician Co-Signing Physician Notes Resident Physician Supervision Note: I independently interviewed and examined the patient and verified the cotton history and physical, reviewed labs and image studies, discussed the case with the resident Dr. Hayes and agree with the findings and care plan. Subjective She is extremely short of breath this morning. She felt like her breathing was poor overnight. She slept very poorly due to her anxiety and not being able to catch her breath. She is not having any chest pain, or chest pressure. Continues to be anxious. Has had no fever, chills, sweats. No abdominal pain, no diarrhea/constipation/nausea. Continues to have swelling in her legs. Review of Systems See HPI Physical Exam 2 Vital Signs (Past 24 Hours): Last Vital Signs Temp 36.7 C 10/27/18 11:51 Pulse 118 H 10/27/18 11:51 Resp 20 10/27/18 11:51 BP 153/101 H 10/27/18 11:51 Pulse Ox 94 10/27/18 11:51 Physical Exam: General: A&Ox3. Appears distressed, dyspnic. HEENT: Atraumatic, normocephalic. Pulm: On BiPAP. Moderate air movement. Rales in the lower lobes bilaterally. - wheezes, -rhonchi. Symmetrical chest rise. Cardiac: RRR, -mrg. Abdominal: Nontender, nondistended, soft. BS present. Extremity: Edema present in the hands and lower legs bilaterally. Results & Data Laboratory Results 10/27/18 10/27/18 10/27/18 Range/Units 16:30 14:16 11:18 WBC (4.8-10.8) K/uL RBC (4.2-5.4) M/uL Hgb (12.0-16.0) g/dL Hct (37-47) % MCV (80-100) fL MCH (25-34) pg MCHC (32-36) g/dL RDW Std Deviation (36.4-46.3) fL RDW Coeff of Clay (11.5-14.5) % Plt Count (130-400) K/uL MPV (7.4-10.4) fL Sodium (136-145) mmol/L Potassium (3.5-5.1) mmol/L Chloride (98-107) mmol/L Carbon Dioxide (21-32) mmol/L Anion Gap (3-11) BUN (7-18) mg/dl Creatinine (0.6-1.2) mg/dl Est Cr Clr Drug Dosing ml/min Est GFR ( Amer) Est GFR (Non-Af Amer) BUN/Creatinine Ratio (10-20) Glucose (70-99) mg/dl POC Glucose 89 81 83 (70-99) Calcium (8.5-10.1) mg/dl 10/27/18 10/27/18 10/27/18 Range/Units 07:32 06:11 06:11 WBC 15.97 H (4.8-10.8) K/uL RBC 2.85 L (4.2-5.4) M/uL Hgb 7.6 L (12.0-16.0) g/dL Hct 24.1 L (37-47) % MCV 84.6 (80-100) fL MCH 26.7 (25-34) pg MCHC 31.5 L (32-36) g/dL RDW Std Deviation 50.7 H (36.4-46.3) fL RDW Coeff of Clay 16.4 H (11.5-14.5) % Plt Count 442 H (130-400) K/uL MPV 9.0 (7.4-10.4) fL Sodium 136 (136-145) mmol/L Potassium 4.2 (3.5-5.1) mmol/L Chloride 107 (98-107) mmol/L Carbon Dioxide 23 (21-32) mmol/L Anion Gap 6.0 (3-11) BUN 11 (7-18) mg/dl Creatinine 0.96 (0.6-1.2) mg/dl Est Cr Clr Drug Dosing 82.3 ml/min Est GFR ( Amer) 88.2 Est GFR (Non-Af Amer) 76.1 BUN/Creatinine Ratio 12.0 (10-20) Glucose 101 H (70-99) mg/dl POC Glucose 91 (70-99) Calcium 8.6 (8.5-10.1) mg/dl 10/26/18 Range/Units 21:12 WBC (4.8-10.8) K/uL RBC (4.2-5.4) M/uL Hgb (12.0-16.0) g/dL Hct (37-47) % MCV (80-100) fL MCH (25-34) pg MCHC (32-36) g/dL RDW Std Deviation (36.4-46.3) fL RDW Coeff of Clay (11.5-14.5) % Plt Count (130-400) K/uL MPV (7.4-10.4) fL Sodium (136-145) mmol/L Potassium (3.5-5.1) mmol/L Chloride (98-107) mmol/L Carbon Dioxide (21-32) mmol/L Anion Gap (3-11) BUN (7-18) mg/dl Creatinine (0.6-1.2) mg/dl Est Cr Clr Drug Dosing ml/min Est GFR ( Amer) Est GFR (Non-Af Amer) BUN/Creatinine Ratio (10-20) Glucose (70-99) mg/dl POC Glucose 150 H (70-99) Calcium (8.5-10.1) mg/dl Medications Administered Current Inpatient Medications Acetaminophen (Ofirmev) 1,000 mg IV Q8H PRN PRN Reason: Fever Stop: 11/06/18 22:51 Last Admin: 10/12/18 00:18 Dose: 1,000 mg Acetaminophen (Tylenol) 650 mg PO Q4H PRN PRN Reason: Pain Stop: 11/26/18 14:37 Last Admin: 10/27/18 14:50 Dose: 650 mg Albuterol (Duoneb) 3 ml NEB QIDR CANDIDO Stop: 11/24/18 07:59 Last Admin: 10/27/18 15:35 Dose: Not Given Clonazepam (Klonopin) 0.5 mg PO BID CANDIDO Stop: 11/25/18 08:59 Last Admin: 10/27/18 07:46 Dose: 0.5 mg Dextrose (Dextrose 50%) 25 - 50 ml IV UD PRN; Protocol PRN Reason: Hypoglycemia Protocol Stop: 11/06/18 21:31 Last Admin: 10/08/18 21:11 Dose: 25 ml Ferrous Sulfate (Feosol) 325 mg PO BIDM CANDIDO Stop: 11/26/18 07:59 Last Admin: 10/27/18 07:52 Dose: 325 mg Furosemide (Lasix) 40 mg PO BID17 CANDIDO Stop: 11/26/18 16:59 Glucagon (Glucagen) 1 mg IM UD PRN; Protocol PRN Reason: Hypoglycemia Protocol Stop: 11/06/18 21:31 Glucose (Glucose 40%) 15 - 30 gm PO UD PRN; Protocol PRN Reason: Hypoglycemia Protocol Stop: 11/06/18 21:31 Glucose (Dex4 Glucose) 4 - 8 tabs PO UD PRN; Protocol PRN Reason: Hypoglycemia Protocol Stop: 11/06/18 21:31 Heparin Sodium (Porcine) (Heparin Sodium (Porcine)) 5,000 units SQ Q12 CANDIDO Stop: 11/21/18 20:59 Last Admin: 10/27/18 07:50 Dose: 5,000 units Hydroxyzine HCl (Vistaril) 25 mg PO HS PRN PRN Reason: breakthrough insomnia Stop: 11/18/18 15:03 Last Admin: 10/27/18 01:38 Dose: 25 mg Rifampin 600 mg/ Dextrose 510 mls @ 167 mls/hr IV DAILY@1700 CANDIDO Stop: 11/24/18 16:59 Last Infusion: 10/25/18 20:24 Dose: Infused Daptomycin 450 mg/ Syringe 9 mls @ 4.5 mls/min IV Q24H [facility]; Protocol Stop: 10/29/18 07:59 Last Admin: 10/26/18 16:39 Dose: Not Given Ceftaroline Fosamil 600 mg/ (Sodium Chloride) 270 mls @ 270 mls/hr IV Q12H [facility] ; Protocol Stop: 10/28/18 20:59 Last Admin: 10/26/18 16:39 Dose: Not Given Insulin Aspart (Novolog Flexpen) 0 units SC ACHS [facility]; Protocol Stop: 11/25/18 07:29 Last Admin: 10/27/18 12:14 Dose: Not Given Insulin Glargine (Lantus Solostar Pen) 0 units SC BID [facility]; Protocol Stop: 11/25/18 20:59 Last Admin: 10/27/18 08:52 Dose: 15 units Lactulose (Chronulac) 30 gm PO Q8H PRN PRN Reason: Constipation Stop: 11/11/18 09:32 Last Admin: 10/13/18 08:57 Dose: 30 gm Linezolid (Zyvox) 600 mg PO BID [facility] Stop: 12/07/18 20:59 Last Admin: 10/27/18 07:46 Dose: 600 mg Lorazepam (Ativan) 0.5 mg PO Q6H PRN PRN Reason: Anxiety Stop: 11/25/18 15:10 Last Admin: 10/27/18 14:49 Dose: 0.5 mg Metoprolol Tartrate (Lopressor) 25 mg PO BID [facility] Stop: 11/16/18 20:59 Last Admin: 10/27/18 07:51 Dose: 25 mg Miscellaneous (Carbohydrates For Hypoglycemia) 15 - 30 gm PO UD PRN PRN Reason: Hypoglycemia Treatment Stop: 11/06/18 21:31 Last Admin: 10/23/18 16:32 Dose: 15 gm Miscellaneous Information (Consult Glycemic Management Pharmacy) 1 ea N/A UD PRN PRN Reason: Consult Stop: 11/06/18 21:38 Miscellaneous Information () 1 ea N/A UD PRN PRN Reason: Consult Stop: 11/09/18 11:14 Miscellaneous Information (Consult) 1 ea N/A UD PRN PRN Reason: Consult Stop: 11/19/18 07:59 Naloxone HCl (Narcan) 0.2 mg IV PRN PRN PRN Reason: OVER Sedation Stop: 11/15/18 09:57 Ondansetron HCl (Zofran) 4 mg IV Q6H PRN PRN Reason: Nausea Stop: 11/06/18 14:59 Oxycodone HCl (Oxycontin) 10 mg PO BID [facility] Stop: 10/30/18 09:59 Last Admin: 10/26/18 08:10 Dose: 10 mg Oxycodone HCl (Roxicodone) 5 mg PO Q6H PRN PRN Reason: pain Stop: 10/30/18 09:59 Polyethylene Glycol (Miralax Powder Packet) 17 gm PO DAILY PRN PRN Reason: Constipation Stop: 11/06/18 14:59 Raspberry (Raspberry) 5 ml PO Q6 [facility] Stop: 11/01/18 00:00 Last Admin: 10/27/18 12:18 Dose: 5 ml Rifampin (Rifampin) 600 mg PO DAILY@2000 [facility] Stop: 11/09/18 19:59 Last Admin: 10/26/18 22:12 Dose: 600 mg Trazodone HCl (Desyrel) 100 mg PO HS [facility] Stop: 11/25/18 20:59 Last Admin: 10/26/18 21:19 Dose: 100 mg Vancomycin HCl (Vancomycin Hcl) 125 mg PO Q6 [facility] Stop: 10/28/18 00:00 Last Admin: 10/27/18 12:18 Dose: 125 mg Vitamin D (Vitamin D3) 2,000 units PO QAM [facility] Stop: 11/09/18 08:59 Last Admin: 10/27/18 07:53 Dose: 2,000 units Resident Activity Tracking Resident Involvement: Resident Care Provided Care Provided: [facility] Medicine _ (1) Aspiration into airway Encounter type: initial encounter Qualified Code(s): T17.908A - Unspecified foreign body in respiratory tract, part unspecified causing other injury, initial encounter
[2018-10-27] MEDS: ACETAMINOPHEN 325 MG TAB PO PRN ×2 (14:50→20:54)
[2018-10-27] MEDS: TRAZODONE HCL 100 MG TAB PO SCH (20:54)
[2018-10-27] MEDS: rifAMPin 300 MG CAPSULE PO SCH (20:55)
[2018-10-28] MEDS: ACETAMINOPHEN 325 MG TAB PO PRN ×3 (02:19→23:50)
[2018-10-28] MEDS: ALBUT/IPRATROP 3MG/0.5MG NEB 3 ML VIAL NEB SCH ×5 (03:01→19:21)
[2018-10-28] MEDS: RASPBERRY SYRUP 5 ML UDP PO SCH ×2 (05:16→13:38)
[2018-10-28 07:16] LABS: Hematocrit (blood only) 22.1 % (37-47); Mean Corpuscular Hgb Conc 31.7 g/dL (32-36); Mean Corpuscular Volume 85.7 fL (80-100); Mean Platelet Volume 8.9 fL (7.4-10.4); Platelet Count 383 K/uL (130-400); RDW Coefficient of Variation 16.6 % (11.5-14.5); RDW Standard Deviation 51.4 fL (36.4-46.3); Red Blood Count 2.58 M/uL (4.2-5.4)
--- NOTE | 2018-10-28 07:22 | Anesthesiology Consultation ---
Date of Service October 28, 2018 Assessment & Plan (1) Encounter for pre-operative examination: Chart Review Chart Review: Acceptable Risk for Surgery and Patient NOT seen in Pre Admission Testing Patient is at a VERY increased risk given her comorbid conditions and current status. While this is usually done under sedation, patient will likely need to be intubated and there is a concern she would have to stay intubated after the procedure and go to the ICU. I spoke with patient's nurse regarding her respiratory status and she stated she can come off of bipap and cpap with supplemental oxygen throughout the day (has an anxiety component to her shortness of breath as well). Patient currently does NOT have ANY vascular access so nurse is contacting the primary team to see what the plan is regarding placing some form of temporary access before the A-port. Consults Requested none History Surgery Operation Date: 10/27/18 12:30 Proposed Procedures p Infusaport Insertion(Left) - Franco Thapa MD Operation Date: 10/28/18 11:30 Proposed Procedures p Infusaport Insertion - Franco Thapa MD Height/Weight Height: 5 ft 4 in Weight: 78.9 kg Allergies Allergy/AdvReac Type Severity Reaction Status Date / Time iodine Allergy Severe RASH Verified 10/07/18 13:01 Iodinated Contrast- Oral and Allergy Unknown RASH Verified 10/07/18 13:01 IV Dye Medications Home Medications Medication Instructions Recorded Confirmed Last Taken buprenorphine HCl 8 mg SUBLINGUAL BID 10/07/18 10/07/18 Unknown insulin aspart U-100 [Novolog 1 dose SUBCUT DIRECTED 10/07/18 10/07/18 Unknown Flexpen U-100 Insulin] insulin glargine [Basaglar KwikPen 32 units SUBCUT QAM 10/07/18 10/07/18 Unknown U-100 Insulin] dalbavancin 1,500 mg IV UD #1 ea 10/23/18 Unknown Active Medications Generic Name Dose Route Start Last Admin Trade Name Freq PRN Reason Stop Dose Admin Acetaminophen 1,000 mg 10/07/18 22:52 10/12/18 00:18 Ofirmev IV 11/06/18 22:51 1,000 mg Q8H PRN Administration Fever Acetaminophen 650 mg 10/27/18 14:38 10/28/18 02:19 Tylenol PO 11/26/18 14:37 650 mg Q4H PRN Administration Pain Albuterol 3 ml 10/25/18 08:00 10/28/18 07:18 Duoneb NEB 11/24/18 07:59 3 ml QIDR CANDIDO Administration Clonazepam 0.5 mg 10/26/18 09:00 10/27/18 20:54 Klonopin PO 11/25/18 08:59 0.5 mg BID CANDIDO Administration Dextrose 25 - 50 ml 10/07/18 21:32 10/08/18 21:11 Dextrose 50% IV 11/06/18 21:31 25 ml UD PRN Administration Hypoglycemia Protocol Protocol Ferrous Sulfate 325 mg 10/27/18 08:00 10/27/18 17:35 Feosol PO 11/26/18 07:59 325 mg BIDM CANDIDO Administration Furosemide 40 mg 10/27/18 17:00 10/27/18 17:34 Lasix PO 11/26/18 16:59 40 mg BID17 CANDIDO Administration Heparin Sodium (Porcine) 5,000 units 10/22/18 21:00 10/27/18 07:50 Heparin Sodium (Porcine) SQ 11/21/18 20:59 5,000 units Q12 CANDIDO Administration Hydroxyzine HCl 25 mg 10/19/18 15:04 10/28/18 02:40 Vistaril PO 11/18/18 15:03 25 mg HS PRN Administration breakthrough insomnia Rifampin 600 mg/ Dextrose 510 mls @ 167 mls/hr 10/13/18 17:00 10/25/18 20:24 IV 11/24/18 16:59 Infused DAILY@1700 CANDIDO Infusion Daptomycin 450 mg/ Syringe 9 mls @ 4.5 mls/min 10/21/18 08:00 10/26/18 16:39 IV 10/29/18 07:59 Not Given Q24H CANDIDO Protocol Ceftaroline Fosamil 600 mg/ 270 mls @ 270 mls/hr 10/25/18 21:00 10/26/18 16: 39 Sodium Chloride IV 10/28/18 20:59 Not Given Q12H CANDIDO Protocol Insulin Aspart 0 units 10/26/18 07:30 10/27/18 22:13 Novolog Flexpen SC 11/25/18 07:29 3 units ACHS CANDIDO Administration Protocol Insulin Glargine 0 units 10/26/18 21:00 10/27/18 21:07 Lantus Solostar Pen SC 11/25/18 20:59 15 units BID CANDIDO Administration Protocol Lactulose 30 gm 10/12/18 09:33 10/13/18 08:57 Chronulac PO 11/11/18 09:32 30 gm Q8H PRN Administration Constipation Linezolid 600 mg 10/26/18 21:00 10/27/18 20:55 Zyvox PO 12/07/18 20:59 600 mg BID CANDIDO Administration Lorazepam 0.5 mg 10/26/18 17:58 10/27/18 22:23 Ativan PO 11/25/18 15:10 0.5 mg Q6H PRN Administration Anxiety Metoprolol Tartrate 25 mg 10/17/18 21:00 10/27/18 20:54 Lopressor PO 11/16/18 20:59 25 mg BID CANDIDO Administration Miscellaneous 15 - 30 gm 10/07/18 21:32 10/23/18 16:32 Carbohydrates For Hypoglycemia PO 11/06/18 21:31 15 gm UD PRN Administration Hypoglycemia Treatment Oxycodone HCl 10 mg 10/16/18 10:00 10/26/18 08:10 Oxycontin PO 10/30/18 09:59 10 mg BID CANDIDO Administration Raspberry 5 ml 10/18/18 00:00 10/28/18 05:16 Raspberry PO 11/01/18 00:00 Not Given Q6 CANDIDO Rifampin 600 mg 10/26/18 20:00 10/27/18 20:55 Rifampin PO 11/09/18 19:59 600 mg DAILY@2000 CANDIDO Administration Trazodone HCl 100 mg 10/26/18 21:00 10/27/18 20:54 Desyrel PO 11/25/18 20:59 100 mg HS CANDIDO Administration Vitamin D 2,000 units 10/10/18 09:00 10/27/18 07:53 Vitamin D3 PO 11/09/18 08:59 2,000 units QAM CANDIDO Administration Past Medical History Medical History Pleural effusion had drained twice by Dr. Nguyen during this admission. Acute kidney failure had kidney failure and was on hemodialysis during her hospital stay. nephrology was following and patient eventually had return of kidney function and nephrology officially signed off 10/20/2018. Acute kidney injury Infective endocarditis Hyperglycemia (Acute) DKA on admission. Glucose was 1220. Treated with DKA protocol and blood glucoses much improved. Type 1 diabetes (Chronic) MRSA (methicillin resistant staph aureus) culture positive (Chronic) Abscess of forearm, right Drug abuse, IV (Acute) Hyperglycemia (Resolved) Retroperitoneal abscess Anemia pRBC transfusion this admission Anxiety C. difficile diarrhea on day 10 of PO vanc Hypertension Respiratory failure on BiPAP Septic embolism Tachycardia Patient in need of vascular access for IV antibiotics for treatment of endocarditis. Past Surgical History Surgical History H/O dilation and curettage Hx of tonsillectomy Social History Smoking Status: Current every day smoker tobacco type: cigarettes Smoking cigarettes per day: 10 Do You Dip or Chew Tobacco: No Hx Alcohol Use: No Hx Substance Use: Yes substance use type: marijuana, IV drugs, methamphetamine and other Substance Use Type Other:: SUBUTEX Last Used Substance: Days (ago) Last Used Substance Other:: SUNDAY Physical Exam Vital Signs Last Vital Signs Temp 36.8 C 10/28/18 07:15 Pulse 117 H 10/28/18 07:18 Resp 26 H 10/28/18 07:18 BP 135/94 10/28/18 07:15 Pulse Ox 98 10/28/18 07:18 Testing Electrocardiogram Date: 10/27/18 Sinus tachycardia Possible Left atrial enlargement Abnormal QRS-T angle, consider primary T wave abnormality Abnormal ECG When compared with ECG of 23-OCT-2018 01:54, No significant change was found Chest X-Ray Date: 10/27/18 FINDINGS: Cardiomediastinal silhouette normal. Redemonstration of extensive patchy bilateral pulmonary opacities with a mid to basilar predominance. These have overall increased in density with a progressive worsening evident when comparing prior radiographs over the last 4 days. Small right and moderate left pleural effusions. The left pleural effusion may be loculated. No pneumothorax. Osseous structures normal. Upper abdomen normal. IMPRESSION: 1. Slowly progressive worsening of multifocal bilateral pulmonary infiltrates, most concerning for multifocal pneumonia. Central cavitation and concern for septic emboli best demonstrated on prior cross-sectional imaging from 10/14/2018. 2. Small right and moderate left pleural effusions. The left pleural effusion may be loculated, which raises concern for empyema. Echocardiogram Date: 10/19/18 LV Function: normal LV is normal in size. There is normal LV wall thickness. EF = 60-65% LV systolic functin is normal. Large left pleural effusion. There is a known large TV vegetation on the RV side of the vlave which appears trapped in the TV chordae, it measures 2.9 by 1.3cm and is hypermobile. Laboratory Results 10/28/18 06:48 10/27/18 06:11 Blood Type O Positive 10/20/18 09:49 Antibody Screen NEGATIVE 10/20/18 09:49 PT 11.6 Seconds (9.0-12.0) 10/14/18 12:37 INR 1.2 (0.9-1.1) H 10/14/18 12:37 APTT 31.2 Seconds (21.0-31.0) H 10/07/18 12:20 Hemoglobin A1c 12.7 % (4.5-5.6) H 10/07/18 12:20 HCG, Quant < 1 mIU/ml 10/07/18 21:39 Urine Color [place] 10/14/18 17:30 Urine Appearance Cloudy (Clear) H 10/14/18 17:30 Urine pH 5.0 (4.5-7.5) 10/14/18 17:30 Ur Specific [place] 1.025 (1.000-1.030) 10/14/18 17:30 Urine Protein 1+ (Negative) H 10/14/18 17:30 Urine Glucose (UA) Negative (Negative) 10/14/18 17:30 Urine Ketones Trace (Negative) H 10/14/18 17:30 Urine Nitrite Positive (Negative) H 10/14/18 17:30 Ur Leukocyte Esterase Trace (Negative) H 10/14/18 17:30 Urine WBC (Auto) >30 /hpf (0-5) H 10/10/18 04:25 Urine RBC (Auto) >30 /hpf (0-4) H 10/10/18 04:25 U Hyaline Cast (Auto) 0 /lpf (0-5) 10/10/18 04:25 U Epithel Cells (Auto) >30 /lpf (0-5) H 10/10/18 04:25 Urine Bacteria (Auto) 1+ (Negative) H 10/10/18 04:25 Urine RBC 0-4 /hpf (0-4) 10/14/18 17:30 Urine WBC 10-30 /hpf (0-5) H 10/14/18 17:30 Ur Epithelial Cells 10-20 /lpf (0-5) H 10/14/18 17:30 10/20/18 Unknown Acid Fast Bacilli Smear - Final Pleural Fluid Acid Fast Bacilli Culture - Preliminary No Acid-Fast Bacilli Isolated - Report 1, Additional Report to Follow. 10/25/18 09:48 Acid Fast Bacilli Smear - Final Pleural Fluid 10/25/18 09:48 Gram Stain - Final Pleural Fluid Aerobic and Anaerobic Culture - Preliminary No growth to date. 10/25/18 09:48 Fungal Smear - Final Pleural Fluid Fungal Culture - Preliminary No yeast or fungus isolated - Report 1, Additional Report to Follow. 10/17/18 12:06 Fungal Smear - Final Blood Fungal Culture - Preliminary No yeast or fungus isolated - Report 2, Additional report to follow. 10/20/18 Unknown Gram Stain - Final Pleural Fluid Aerobic and Anaerobic Culture - Final No growth 10/23/18 11:44 Blood Culture - Preliminary Blood No growth to date. 10/23/18 11:41 Blood Culture - Preliminary Blood No growth to date. 10/19/18 14:01 Blood Culture - Final Blood No growth 10/19/18 13:45 Blood Culture - Final Blood No growth 10/15/18 09:19 Blood Culture - Final Blood Staph aureus MRSA 10/15/18 09:17 Blood Culture - Final Blood Staph aureus MRSA 10/11/18 03:42 Fungal Smear - Final Blood Fungal Culture - Preliminary No yeast or fungus isolated - Report 2, Additional report to follow. 10/12/18 08:47 Blood Culture - Final Blood Staph aureus MRSA 10/14/18 17:30 Urine Culture - Final Urine,Clean Catch Christine glabrata 10/14/18 09:16 Blood Culture - Final Blood Staph aureus MRSA 10/14/18 08:44 Blood Culture - Final Blood Staph aureus MRSA 10/10/18 08:43 Blood Culture - Final Blood Staph aureus MRSA 10/10/18 08:37 Blood Culture - Final Blood Staph aureus MRSA 10/12/18 08:54 Blood Culture - Final Blood Staph aureus MRSA 10/07/18 13:00 Urine Culture - Final Urine,Straight Cath No growth - less than 1,000 colonies/mL. 10/07/18 12:26 Blood Culture - Final Blood Staph aureus MRSA 01/07/19 13:54 Blood Culture - Final Blood Staph aureus MRSA 10/28/18 10/27/18 06:05 20:05 POC Glucose 171 H 138 H
[2018-10-28] MEDS: clonazePAM 0.5 MG TAB PO SCH ×2 (07:48→21:07)
[2018-10-28] MEDS: CHOLECALCIFEROL 1,000 UNITS TAB PO SCH (07:49)
[2018-10-28] MEDS: LINEZOLID 600 MG TAB PO SCH (07:49)
[2018-10-28] MEDS: FUROSEMIDE 40 MG TAB PO SCH ×2 (07:49→19:54)
[2018-10-28] MEDS: METOPROLOL TARTRATE 25 MG TAB PO SCH ×2 (07:49→21:14)
[2018-10-28] MEDS: FERROUS SULFATE 325 MG TAB PO SCH ×2 (07:50→19:54)
[2018-10-28] MEDS: INSULIN GLARGINE SOLOSTAR 100 UNITS/ML 3 ML PEN SC SCH ×2 (07:51→21:19)
[2018-10-28] MEDS: INSULIN ASPART 100 UNITS/ML 3 ML PEN SC SCH ×4 (08:02→21:19)
[2018-10-28] MEDS: LORazepam 0.5 MG TAB PO PRN ×3 (08:06→22:32)
[2018-10-28] MEDS ORDERED: INSULIN GLARGINE SOLOSTAR 100 UNITS/ML 3 ML PEN SC SCH (09:00)
--- NOTE | 2018-10-28 14:28 | Pharmacy Report ---
PHA: Glycemic Control AP - Date of Service October 28, 2018 - Assessment & Plan The patient is currently receiving units of insulin per day. BSGs ranging 83 - 178 mg/dl over the past 24hrs. Assesment: 10/28/18: * Ms. Katz recieved 34 units of insulin yesterday. She continues to be NPO awaiting port placement, planned for today. Reduced AM dose this morning and will place scale on this evening to account for potential continued NPO status or re-odering of diet. 10/27/18 * Ms. Katz received 38 units of insulin yesterday. BSGs improved significantly throughout the day and she did not end up receiving higher doses of the Lantus. I'm concerned that the current Novolog parameters may be too aggressive now that BSGs have improved. Will loosen today. * Basal dose will be kept the same, allowing for a slightly higher dose if BSGs are > 180 mg/dL 10/26/18 * Ms. Katz received 43 units of insulin yesterday. She only ended up receiving a single dose of Solu-medrol and her BSGs improved into the evening, so no additional basal was given. * This AM, however, BSGs are back into the mid-200s. Steroid dose should be worn off by this point. She must have some other stressors that are causing BSGs to be elevated. AM Lantus and Novolog doses have already been given this AM. Will plan to tighten Novolog back to yesterday's parameters, starting w/ lunch. Will also increase Lantus with this evening's dose if BSGs remain above 180 mg/dL. 10/25/18 * Ms. Katz received 38 units of insulin yesterday. BSGs were on the lower side; however, they are high now s/p a single dose of Solu-medrol for resp issues this AM. * Since this was a single dose and Solu-medrol typically has a duration of action < 24 hours, will hold off on giving additional basal insulin, especially since BSGs have started to fall already. Instead, will tighten the CF/CR for the remainder of today to provide more prandial coverage. These will be loosened back to current parameters tomorrow AM. 10/24/18: * Patient has been slightly/borderline hypoglycemic a couple of times in the past 24 hours, but fasting BSG is on the upper end of goal range. * Lantus dose appears to be appropriate. * Novolog parameters loosened slightly to provide less prandial/correctional insulin throughout the day. 10/22/18 * 37 yo F with T1DM admitted with DKA and MRSA bacteremia 2nd endocarditis, septic pulmonary emboli, probable seeding/septic joint * Outpatient control of T1DM poor based on A1c of 12.7%. * BSG's ranged 163-213 mg/dL yesterday, but are below goal today, thus far ranging 80-96 mg/dL * AM fasting BSG below goal today - OK to very slightly reduce Lantus administered (received 31 units yesterday) * Will very slightly loosen Novolog CHO ratio - patient consumed a large amount of CHO with breakfast (108 g) and BSG decreaed from 96 to 80 mg/dL Plan: * Basal insulin: Lantus 12 units this AM; lantus based on scale this eveninu (<140 mg/dl), 15u (140-200), 17u (>200mg/dl) * Correctional Insulin: Novolog Correction per scale ACHS Goal Range: Low 110 mg/dL - High 140 mg/dL Correction Factor: 30 mg/dL/unit * Prandial insulin: Per carb ratio of 1 unit per 10 grams CHO consumed Pharmacy will continue to monitor patient daily and write orders per [facility] inpatient glycemic control protocol. Thanks. * Please note that the plan above was derived based on current level of insulin resistance and hospital stress. These recommendations are appropriate for inpatient admission only. Plan of care upon discharge will need to be reassessed to avoid potential outpatient hypo/hyperglycemia.
[2018-10-28] MEDS ORDERED: SIMETHICONE 40 MG/0.6 ML 30ML PO ONE (14:57)
--- NOTE | 2018-10-28 15:22 | History & Physical Bridge Note ---
Date of Service October 28, 2018 History & Physical Bridge Note I have examined the patient, reviewed the History & Physical and in the interval since the performance of the History & Physical I have noted the following changes of clinical significance: no changes noted
--- NOTE | 2018-10-28 15:27 | Infectious Disease Progress Nt ---
Date of Service October 28, 2018 Assessment & Plan (1) MRSA (methicillin resistant Staphylococcus aureus) septicemia: Patient with tricuspid valve endocarditis with MRSA, blood cultures finally now cleared on 3 drug therapy. Patient to have central access placed later today. We will continue present antibiotics. Will follow. (2) Infective endocarditis: Subjective Patient seen in follow-up for tricuspid valve endocarditis with MRSA. Awaiting placement of [id number] for IV access. Remains afebrile. No new complaints. Review of Systems All systems reviewed & are unremarkable except as noted in HPI & below Physical Exam 2 Vital Signs (Past 24 Hours): Last Vital Signs Temp 37.0 C 10/28/18 12:00 Pulse 105 H 10/28/18 14:21 Resp 32 H 10/28/18 14:21 BP 145/88 H 10/28/18 12:00 Pulse Ox 99 10/28/18 14:21 Constitutional: WD/WN, vitals as above + ill appearing, + thin and comfortable; no acute distress Eyes: PERRL, conjunctivae normal, anicteric sclerae ENMT: external ear and nose normal, oropharynx normal Neck: trachea midline, no thyromegaly neck nontender Respiratory: normal respiratory effort, lungs clear to auscultation normal percussion and + tachypneic; no respiratory distress Auscultation: + rales Cardiovascular: Rate/Rhythm: regular rate and regular rhythm Heart Sounds: normal S1, normal S2 and + murmur; no gallop and no cardiac rub Gastrointestinal (Abdomen): normal bowel sounds, soft, nontender, no hepatosplenomegaly Inspection/Auscultation: abdomen normal to inspection and normal bowel sounds Percussion/Palpation: + abdomen tender; no hepatosplenomegaly and no abdominal mass Musculoskeletal: no cyanosis or clubbing, extremities motor strength 5/5 Head/Neck/Chest: normocephalic and head atraumatic Skin: no rashes, warm and dry no lesions Neurologic: moves all extremities and awake; no focal motor deficits Motor/ Sensory: no sensory deficit Psychiatric: A+Ox3, euthymic affect Lymphatic: no cervical or axillary lymphadenopathy no inguinal lymphadenopathy Results & Data Laboratory Results Short CBC 10/28/18 10/28/18 Range/Units 06:48 10:18 WBC 8.50 (4.8-10.8) K/uL Hgb 7.0 L 7.4 L (12.0-16.0) g/dL Hct 22.1 L (37-47) % Plt Count 383 (130-400) K/uL Diagnostic Findings Microbiology 10/25/18 09:48 Pleural Fluid Gram Stain - Final 10/25/18 09:48 Pleural Fluid Aerobic and Anaerobic Culture - Preliminary No growth to date. 10/20/18 Unknown Pleural Fluid Acid Fast Bacilli Smear - Final 10/20/18 Unknown Pleural Fluid Acid Fast Bacilli Culture - Preliminary No Acid-Fast Bacilli Isolated - Report 1, Additional Report to Follow. 10/25/18 09:48 Pleural Fluid Acid Fast Bacilli Smear - Final 10/25/18 09:48 Pleural Fluid Fungal Smear - Final 10/25/18 09:48 Pleural Fluid Fungal Culture - Preliminary No yeast or fungus isolated - Report 1, Additional Report to Follow. 10/17/18 12:06 Blood Fungal Smear - Final 10/17/18 12:06 Blood Fungal Culture - Preliminary No yeast or fungus isolated - Report 2, Additional report to follow. 10/20/18 Unknown Pleural Fluid Gram Stain - Final 10/20/18 Unknown Pleural Fluid Aerobic and Anaerobic Culture - Final No growth 10/23/18 11:44 Blood Blood Culture - Preliminary No growth to date. 10/23/18 11:41 Blood Blood Culture - Preliminary No growth to date. 10/19/18 14:01 Blood Blood Culture - Final No growth 10/19/18 13:45 Blood Blood Culture - Final No growth 10/15/18 09:19 Blood Blood Culture - Final Staph aureus MRSA 10/15/18 09:17 Blood Blood Culture - Final Staph aureus MRSA 10/11/18 03:42 Blood Fungal Smear - Final 10/11/18 03:42 Blood Fungal Culture - Preliminary No yeast or fungus isolated - Report 2, Additional report to follow. 10/12/18 08:47 Blood Blood Culture - Final Staph aureus MRSA 10/14/18 17:30 Urine,Clean Catch Urine Culture - Final Christine glabrata 10/14/18 09:16 Blood Blood Culture - Final Staph aureus MRSA 10/14/18 08:44 Blood Blood Culture - Final Staph aureus MRSA 10/10/18 08:43 Blood Blood Culture - Final Staph aureus MRSA 10/10/18 08:37 Blood Blood Culture - Final Staph aureus MRSA 10/12/18 08:54 Blood Blood Culture - Final Staph aureus MRSA 10/07/18 13:00 Urine,Straight Cath Urine Culture - Final No growth - less than 1,000 colonies/mL. 10/07/18 12:26 Blood Blood Culture - Final Staph aureus MRSA 10/07/18 13:54 Blood Blood Culture - Final Staph aureus MRSA cc: ~ XR chest 1V portable CLINICAL HISTORY: 37 years-old Female presenting with dyspnea. TECHNIQUE: Portable upright AP view of the chest was obtained. COMPARISON: 10/26/2018. FINDINGS: Cardiomediastinal silhouette normal. Redemonstration of extensive patchy bilateral pulmonary opacities with a mid to basilar predominance. These have overall increased in density with a progressive worsening evident when comparing prior radiographs over the last 4 days. Small right and moderate left pleural effusions. The left pleural effusion may be loculated. No pneumothorax. Osseous structures normal. Upper abdomen normal. IMPRESSION: 1. Slowly progressive worsening of multifocal bilateral pulmonary infiltrates, most concerning for multifocal pneumonia. Central cavitation and concern for septic emboli best demonstrated on prior cross-sectional imaging from 10/14/2018. 2. Small right and moderate left pleural effusions. The left pleural effusion may be loculated, which raises concern for empyema. Electronically signed by: Alfredo Ascencio M.D. 10/27/2018 7:15 AM Dictated: 10/27/1813 Transcribed: 10/27/18 07
--- NOTE | 2018-10-28 15:56 | Progress Note ---
DATE: 10/28/2018 Princess was sitting up on a nasal cannula with good saturations today. She is being held n.p.o., but she looks a bit better to me than she did yesterday. The patient is to have a Port-A-Cath inserted by Dr. Thapa later today. It appears to me that her infiltrates are a bit worse. She does have septic emboli. I am not too concerned about her left pleural effusion. The official radiology report raised a concern for empyema; however, we have tapped it twice and we have not grown any organisms. At any rate, she is being treated with antibiotics. We will continue to follow along with this.
--- NOTE | 2018-10-28 16:17 | Family Medicine Progress Note ---
Date of Service October 28, 2018 Assessment & Plan (1) MRSA (methicillin resistant Staphylococcus aureus) septicemia: Princess is a 37-year-old female with a past medical history of IV drug abuse and type 1 diabetes with resolved DKA being currently managed for MRSA endocarditis with septicemia. Infective endocarditis - Repeat echo with trapped vegetations, minimal to no TR, pleural effusions. � Was improving on ceftaroline + rifampin + dapto but lost IV access. Pending port placement today. - Linezolid 600mg PO BID CANDIDO until IV access can be established. - Repeat BCx2 on 10/25 and 10/19 with ng - Not medically ready for discharge. If she were to be discharged, would time abx right before discharge in the evening ~9pm then followup to [facility] technical adjuster next day for infusion. Dalbavancin preauth approved for 10/25/18 to . Cannot receive infusion on day of discharge. Acute hypoxic respiratory failure �Multifactorial. In the setting of multiple septic emboli. Regurg 2/2 endocarditis/valvular disease may be contributing to pulmonary edema difficult to visualize on the background of septic emboli. Has low oncotic pressure as well due to low protein and hypoalbuminemia. - ABG 10/25/18: 7.45/33/74/22 - s/p second pleurocentesis 10/25, removed 800mL transudative fluid removed - O2, Bipap as needed. Anxiety/Insomnia - Clonazepam 0.5mg PO BID CANDIDO - Lorazepam 0.5mg PO Q6H PRN - Trazodone 50mg PO PRN - Hydroxyzine 25mg PO PRN - Escitalopram 10mg PO daily if QTp will tolerate C. difficile diarrhea - Vanco 125mg PO Q6H Day #07/10. Stopped today Anemia - Fecal occult blood negative - No signs of intravascular hemolysis on smear - Likely in setting of endocarditis and poor nutrition on a background of repeat phlebotomy - Iron 325mg PO BIDM T2DM - Glucose checks AC/HS - Daily BMP, SG - SSI correction 40mg/dl/unit, 1:14 Carb Ratio HTN - Metoprolol Tartrate 25mg BID - Hold for BP systolic < 100, HR<60. 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 � Previously on oxycodone PRN, held & OK with pt to avoid opioids. IV drug abuse �History of injecting buprenorphine. �Will require counseling and possible rehab on discharge - Attempting to place into direct f/u with PCP and possibly methadone clinic when medically stable Acute renal failure. (resolved) -likely secondary to septic picture + prerenal. - Continue to follow BMP/Cr/UOP Bacteruria (resolved) - UA Positive for bacteria and nitrites, UC shows minimal growth and is likely contaminant versus mild kami in the setting of stasis DKA (resolved) �Blood sugar 1220 on admission �Treated with DKA protocol on admit Diet: Tolerating PO well, T1 Diabetic Diet. Low albumin + boost/yogurt with meals. DVT Prophylaxis: On heparin 5,000U Q8H (2) Acute kidney failure: (3) Right shoulder pain: (4) Wrist pain, left: (5) Aspiration into airway: (6) Hyperglycemia: (7) Hyponatremia: (8) DVT prophylaxis: Supervising Physician Co-Signing Physician Notes Patient seen and examined with Dr. Choudhury at the bedside. Agree with history, exam findings, assessment and plan of care as outlined with the following additions/updates: In brief, Princess is a 37 year old female with history of IVDA, diabetes admitted 21 days ago with septicemia and DKA. Today reports that she is hungry. Waiting for port placement. VS reviewed and stable. Bibasilar crackles. Pitting edema bilateral LE. 1. infective endocarditis. linezolid PO. Port placement today after central venous access by anesthesia. Plan to switch to dalbavancin as an outpatient--to be given in [facility]. 2. respiratory insufficiency. multifactorial. O2 support as needed, diuresis with lasix. Watch lytes and renal function. 3. c diff colitis. last day of oral vanc (10 day course). 4. anemia. monitor H/H. 5. DM. glucose checks ac + hs. ssi. 6. hypoalbuminemia. nutritional in nature. appreciate nutrition recs. Subjective States that she is feeling better than yesterday and would like to eat. Also complains of stomach discomfort. Physical Exam 2 Vital Signs (Past 24 Hours): Last Vital Signs Temp 37.0 C 10/28/18 12:00 Pulse 113 H 10/28/18 15:16 Resp 25 H 10/28/18 15:16 BP 145/88 H 10/28/18 12:00 Pulse Ox 98 10/28/18 15:16 General: Resting in position with blanket covering, eyes closed. HEENT: NC/AT Chest: Nontender to palpation. CV: RRR, Normal s1, s2. No murmurs appreciated Resp: Crackles heard more on the left, especially the bases. Reduced breath sounds right upper lobe. Extremities: Significant nonpitting lower extremity edema. Results & Data Laboratory Results Laboratory Results - last 24 hr 10/27/18 10/28/18 10/28/18 20:05 06:05 06:48 WBC 8.50 RBC 2.58 L Hgb 7.0 L Hct 22.1 L MCV 85.7 MCH 27.1 MCHC 31.7 L RDW Std Deviation 51.4 H RDW Coeff of Clay 16.6 H Plt Count 383 MPV 8.9 POC Glucose 138 H 171 H 10/28/18 10/28/18 10/28/18 08:01 10:18 11:49 WBC RBC Hgb 7.4 L Hct MCV MCH MCHC RDW Std Deviation RDW Coeff of Clay Plt Count MPV POC Glucose 178 H 115 H 10/28/18 10/28/18 16:57 17:33 WBC RBC Hgb Hct MCV MCH MCHC RDW Std Deviation RDW Coeff of Clay Plt Count MPV POC Glucose 62 L* 91 Medications Administered Home Medications buprenorphine HCl 8 mg SUBLINGUAL BID 10/07/18 [History Confirmed 10/07/18] insulin aspart U-100 [Novolog Flexpen U-100 Insulin] 1 dose SUBCUT DIRECTED 10/07/18 [History Confirmed 10/07/18] insulin glargine [Basaglar KwikPen U-100 Insulin] 32 units SUBCUT QAM 10/07/18 [ History Confirmed 10/07/18] dalbavancin 1,500 mg IV UD #1 ea 10/23/18 [Rx] Active Medications Acetaminophen (Ofirmev) 1,000 mg IV Q8H PRN PRN Reason: Fever Stop: 11/06/18 22:51 Last Admin: 10/12/18 00:18 Dose: 1,000 mg Acetaminophen (Tylenol) 650 mg PO Q4H PRN PRN Reason: Pain Stop: 11/26/18 14:37 Last Admin: 10/28/18 07:53 Dose: 650 mg Albuterol (Duoneb) 3 ml NEB QIDR [facility] Stop: 11/24/18 07:59 Last Admin: 10/28/18 15:16 Dose: 3 ml Atropine Sulfate (Atropine Sulfate) 0.5 mg IV Q1M PRN PRN Reason: PACU Use-HR<40 &/or Bradycardi Stop: 10/28/18 22:35 Clonazepam (Klonopin) 0.5 mg PO BID [facility] Stop: 11/25/18 08:59 Last Admin: 10/28/18 07:48 Dose: 0.5 mg Dextrose (Dextrose 50%) 25 - 50 ml IV UD PRN; Protocol PRN Reason: Hypoglycemia Protocol Stop: 11/06/18 21:31 Last Admin: 10/08/18 21:11 Dose: 25 ml Ephedrine Sulfate (Ephedrine Sulfate) 5 mg IV Q5M PRN PRN Reason: PACU Use Only-SBP<90 mmHg Stop: 10/28/18 22:35 Fentanyl Citrate (Fentanyl Citrate) 25 mcg IV Q5M PRN PRN Reason: PACU Use Only-Pain Stop: 10/28/18 22:36 Ferrous Sulfate (Feosol) 325 mg PO BIDM [facility] Stop: 11/26/18 07:59 Last Admin: 10/28/18 07:50 Dose: 325 mg Furosemide (Lasix) 40 mg PO BID17 [facility] Stop: 11/26/18 16:59 Last Admin: 10/28/18 07:49 Dose: 40 mg Glucagon (Glucagen) 1 mg IM UD PRN; Protocol PRN Reason: Hypoglycemia Protocol Stop: 11/06/18 21:31 Glucose (Glucose 40%) 15 - 30 gm PO UD PRN; Protocol PRN Reason: Hypoglycemia Protocol Stop: 11/06/18 21:31 Glucose (Dex4 Glucose) 4 - 8 tabs PO UD PRN; Protocol PRN Reason: Hypoglycemia Protocol Stop: 11/06/18 21:31 Heparin Sodium (Porcine) (Heparin Sodium (Porcine)) 5,000 units SQ Q12 [facility] Stop: 11/21/18 20:59 Last Admin: 10/27/18 07:50 Dose: 5,000 units Hydroxyzine HCl (Vistaril) 25 mg PO HS PRN PRN Reason: breakthrough insomnia Stop: 11/18/18 15:03 Last Admin: 10/28/18 02:40 Dose: 25 mg Rifampin 600 mg/ Dextrose 510 mls @ 167 mls/hr IV DAILY@1700 [facility] Stop: 11/24/18 16:59 Last Infusion: 10/25/18 20:24 Dose: Infused Daptomycin 450 mg/ Syringe 9 mls @ 4.5 mls/min IV Q24H [facility]; Protocol Stop: 10/29/18 07:59 Last Admin: 10/26/18 16:39 Dose: Not Given Ceftaroline Fosamil 600 mg/ (Sodium Chloride) 270 mls @ 270 mls/hr IV Q12H [facility] ; Protocol Stop: 10/28/18 20:59 Last Admin: 10/26/18 16:39 Dose: Not Given Insulin Aspart (Novolog Flexpen) 0 units SC ACHS [facility]; Protocol Stop: 11/25/18 07:29 Last Admin: 10/28/18 11:54 Dose: Not Given Insulin Glargine (Lantus Solostar Pen) 0 units SC BID [facility]; Protocol Stop: 11/25/18 20:59 Last Admin: 10/27/18 21:07 Dose: 15 units Lactulose (Chronulac) 30 gm PO Q8H PRN PRN Reason: Constipation Stop: 11/11/18 09:32 Last Admin: 10/13/18 08:57 Dose: 30 gm Linezolid (Zyvox) 600 mg PO BID [facility] Stop: 12/07/18 20:59 Last Admin: 10/28/18 07:49 Dose: 600 mg Lorazepam (Ativan) 0.5 mg PO Q6H PRN PRN Reason: Anxiety Stop: 11/25/18 15:10 Last Admin: 10/28/18 15:19 Dose: 0.5 mg Metoprolol Tartrate (Lopressor) 25 mg PO BID [facility] Stop: 11/16/18 20:59 Last Admin: 10/28/18 07:49 Dose: 25 mg Miscellaneous (Carbohydrates For Hypoglycemia) 15 - 30 gm PO UD PRN PRN Reason: Hypoglycemia Treatment Stop: 11/06/18 21:31 Last Admin: 10/23/18 16:32 Dose: 15 gm Miscellaneous Information (Consult Glycemic Management Pharmacy) 1 ea N/A UD PRN PRN Reason: Consult Stop: 11/06/18 21:38 Miscellaneous Information () 1 ea N/A UD PRN PRN Reason: Consult Stop: 11/09/18 11:14 Miscellaneous Information (Consult) 1 ea N/A UD PRN PRN Reason: Consult Stop: 11/19/18 07:59 Naloxone HCl (Narcan) 0.2 mg IV PRN PRN PRN Reason: OVER Sedation Stop: 11/15/18 09:57 Ondansetron HCl (Zofran) 4 mg IV Q6H PRN PRN Reason: Nausea Stop: 11/06/18 14:59 Last Admin: 10/28/18 11:55 Dose: 4 mg Ondansetron HCl (Zofran) 4 mg IV ONCE PRN PRN Reason: PACU Use Only-Nausea/Vomiting Stop: 10/28/18 22:36 Oxycodone HCl (Oxycontin) 10 mg PO BID [facility] Stop: 10/30/18 09:59 Last Admin: 10/26/18 08:10 Dose: 10 mg Oxycodone HCl (Roxicodone) 5 mg PO Q6H PRN PRN Reason: pain Stop: 10/30/18 09:59 Polyethylene Glycol (Miralax Powder Packet) 17 gm PO DAILY PRN PRN Reason: Constipation Stop: 11/06/18 14:59 Rifampin (Rifampin) 600 mg PO DAILY@1999 [facility] Stop: 11/09/18 19:59 Last Admin: 10/27/18 20:55 Dose: 600 mg Trazodone HCl (Desyrel) 100 mg PO HS [facility] Stop: 11/25/18 20:59 Last Admin: 10/27/18 20:54 Dose: 100 mg Vitamin D (Vitamin D3) 2,000 units PO QAM [facility] Stop: 11/09/18 08:59 Last Admin: 10/28/18 07:49 Dose: 2,000 units Resident Activity Tracking Resident Involvement: Resident Care Provided Care Provided: [facility] _ (1) Aspiration into airway Encounter type: initial encounter Qualified Code(s): T17.908A - Unspecified foreign body in respiratory tract, part unspecified causing other injury, initial encounter
[2018-10-28] MEDS ORDERED: MIDAZOLAM HCL 1 MG/ML 2ML VIAL ONE (16:29)
[2018-10-28] MEDS ORDERED: LIDOCAINE HCL 1% 20 ML VIAL ONE (16:29)
[2018-10-28] MEDS ORDERED: HEPARIN 100 UNIT/ML 5ML FLUSH ONE (16:29)
[2018-10-28] MEDS ORDERED: DEXTROSE 50% 50 ML SYRINGE IV ONE (16:59)
[2018-10-28] MEDS ORDERED: KETAMINE HCL INJ 50 MG/ML 10 ML VIAL ONE (17:23)
[2018-10-28] MEDS ORDERED: ONDANSETRON INJ 2 MG/ML 2 ML VIAL IV PRN (17:35)
[2018-10-28] MEDS ORDERED: ePHEDrine sulfate 50 MG/ML AMP IV PRN (17:35)
[2018-10-28] MEDS ORDERED: ATROPINE SULFATE 0.1 MG/ML 10ML SYR IV PRN (17:35)
[2018-10-28] MEDS ORDERED: PROMETHAZINE HCL INJ 25 MG/ML 1 ML VIAL ONE (18:01)
[2018-10-28] MEDS ORDERED: PROPOFOL IV EMULSION 10 MG/ML 20 ML VIAL IV ONE (18:01)
--- NOTE | 2018-10-28 18:15 | Post Operative Brief Note ---
Immediate Post Op Note v1 Date of Surgery October 28, 2018 Pre & Post Diagnosis Operation Date: 10/27/18 12:30 <No data on this case meets the specified criteria> Operation Date: 10/28/18 11:30 Pre-Op Diagnosis: poor peripheral IV access Post-Op Diagnosis: same as preop Procedure Operation Date: 10/27/18 12:30 <No data on this case meets the specified criteria> Operation Date: 10/28/18 11:30 Actual Procedures p Infusaport Insertion into Left Subclavian Vein(Left) - Franco Thapa MD Surgeon Franco Thapa MD Social Work Faculty Member None Estimated Blood Loss 10 Findings Consistent with Post-Op Diagnosis Specimens None Drains Briseno Catheter Anesthesia Type MAC Complications none
[2018-10-28] MEDS: fentaNYL citrate 100 MCG/2 ML VIAL IV PRN ×2 (18:28→18:33)
--- NOTE | 2018-10-28 18:50 | Anesthesiology Progress Note ---
Date of Service October 28, 2018 Anesthesia Post Procedure Vital Signs Vital Signs: Temp Pulse Pulse Pulse Pulse Resp BP 10/28/18 18:35 104 H 19 10/28/18 18:25 109 H 17 10/28/18 18:16 99.3 F 108 H 16 10/28/18 17:12 98.4 F 102 H 21 10/28/18 16:24 98.4 F 105 H 24 10/28/18 15:16 113 H 113 H 25 H 10/28/18 14:21 105 H 32 H 10/28/18 12:00 98.6 F 97 H 24 145/88 H 10/28/18 11:05 83 83 21 10/28/18 08:00 102 H 10/28/18 07:18 117 H 26 H 10/28/18 07:15 98.2 F 107 H 22 135/94 10/28/18 05:45 100 H 22 144/95 H 10/28/18 03:16 98.8 F 111 H 26 H 10/28/18 03:03 117 H 29 H 10/28/18 03:02 114 H 32 H 10/27/18 23:59 127 H 10/27/18 19:50 133 H 46 H 10/27/18 18:59 99.0 F 125 H 20 131/85 BP Pulse Ox 10/28/18 18:35 144/101 H 97 10/28/18 18:25 149/97 H 96 10/28/18 18:16 146/104 H 96 10/28/18 17:12 143/87 H 100 10/28/18 16:24 142/91 H 97 10/28/18 15:16 98 10/28/18 14:21 99 10/28/18 12:00 99 10/28/18 11:05 98 10/28/18 08:00 10/28/18 07:18 98 10/28/18 07:15 98 10/28/18 05:45 98 10/28/18 03:16 146/89 H 98 10/28/18 03:03 100 10/28/18 03:02 100 10/27/18 23:59 10/27/18 19:50 97 10/27/18 18:59 95 Pain Intensity Right Shoulder: Pain Intensity: 7 Left Hand: Pain Intensity: 7 Left Knee: Pain Intensity: 0 Generalized: Pain Intensity: 8 Left Chest: Pain Intensity: 4 Notes Mental Status: alert / awake / arousable and participated in evaluation Patient Amnestic to Procedure: Yes Nausea / Vomiting: adequately controlled Pain: adequately controlled Airway Patency, RR, SpO2: stable & adequate BP & HR: stable & adequate Hydration State: stable & adequate Anesthetic Complications: no major complications apparent and Pt Satisfied with anesthetic care
--- NOTE | 2018-10-28 19:01 | XRay Report ---
XR chest 1V portable CLINICAL HISTORY: s/p infusaport COMPARISON STUDY: Chest radiograph October 27, 2018. FINDINGS: There is no pneumothorax following placement of a left subclavian [id number]. Catheter i s intact. Tip projects of the distal SVC. Cardiomegaly is unchanged. Bilateral pleural effusions, lef t larger than right, persist. There is diffuse interstitial thickening with extensive bilateral airsp flaquita opacities. This is unchanged. IMPRESSION: 1. No pneumothorax following placement of a left subclavian [id number]. Catheter intact. Tip proje cts over distal SVC. 2. No change in extensive bilateral airspace opacities and interstitial thickening which favor pneumo francesca. Pulmonary edema or ARDS could appear similar. 3. Persistent bilateral pleural effusions, left larger than right. Electronically signed by: Randy Ley M.D. 10/28/2018 6:59 PM
[2018-10-28] MEDS: CARBOHYDRATES FOR HYPOGLYCEMIA PO PRN (19:52)
[2018-10-28] MEDS: OXYCODONE HCL IR 5 MG TAB (IMMEDIATE RELEASE) PO PRN (19:56)
[2018-10-28] MEDS: TRAZODONE HCL 100 MG TAB PO SCH (21:08)
[2018-10-28] MEDS: rifAMPin 300 MG CAPSULE PO SCH (21:14)
[2018-10-28] MEDS: HEPARIN SOD 5,000 UNIT/0.5 ML VIAL SQ SCH (21:20)
[2018-10-28] MEDS: CEFTAROLINE FOSAMIL ACETATE 600 MG in SODIUM CHLORIDE 0.9% 250 ML IV SCH (21:32)
[2018-10-28] MEDS: DAPTOmycin 450 MG in SYRINGE 0 ML IV SCH (21:32)
[2018-10-28] MEDS: OXYCODONE HCL 10 MG TABCR (OXYCONTIN) PO SCH (21:33)
--- NOTE | 2018-10-28 23:01 | Operative Report ---
DATE OF OPERATION: 10/28/2018 PREOPERATIVE DIAGNOSIS: Poor peripheral access, need for long-term central venous access. POSTOPERATIVE DIAGNOSIS: Same. PROCEDURE: Placement of A-port tunneled central venous access catheter with port via left subclavian approach. SURGEON: Franco Thapa MD FINDINGS: The tip of the catheter was placed near the junction of the superior vena cava and right atrium. The port was accessed and there was good blood return. It was easily flushed without leaking. TECHNIQUE: The patient was given intravenous sedation and the area was prepped and draped in the usual sterile fashion. The skin and subcutaneous tissue in the left infraclavicular area were anesthetized with 1% Xylocaine without epinephrine. The left subclavian vein was entered on the first attempt and the wire passed with ease. The tip of the wire was confirmed in the right atrium by fluoroscopy. A small incision was made at the exit site of the wire to allow for passage of the introducer sheath device. The site for the port was chosen and the skin and subcutaneous tissue superior to that area were anesthetized with 1% Xylocaine without epinephrine. Skin incision was made and it was carried down through the subcutaneous tissue to the prepectoral fascia. A prepectoral pocket was created inferior to that incision and the port fit nicely. Introducer sheath device was passed over the wire under fluoroscopic guidance. Introducer and wire were removed and the catheter was passed through the sheath under fluoroscopic guidance and the tip of the catheter was seen to enter the right atrium. The sheath was peeled. Tunneling device was used to pass the catheter from the infraclavicular incision to the port incision. The fluoroscopy was used to size the catheter. The catheter was cut and attached to the port with ease. The port was accessed and there was good blood return and it was easily flushed without leaking. The port was secured to the prepectoral fascia using 2-0 Prolene sutures. The port incision was closed with running 2-0 Vicryl, the deep subcutaneous tissue with running 3-0 Vicryl, and the superficial and subcutaneous tissue with running 4-0 Monocryl in a subcuticular fashion for the skin. The infraclavicular incision was closed with a subcuticular suture of 4-0 Monocryl. The skin was cleansed, dried, and a dressing placed. The estimated blood loss was 5 mL. Sponge, needle, and instrument counts were correct prior to closure. The patient tolerated the surgical procedure without complication and was transferred to recovery. I attest to the content of the Intraoperative Record and any orders documented therein. Any exception s are noted below.
[2018-10-29] MEDS: SIMETHICONE 80 MG CHEW PO PRN (01:10)
[2018-10-29] MEDS: OXYCODONE HCL IR 5 MG TAB (IMMEDIATE RELEASE) PO PRN ×2 (04:40→16:24)
[2018-10-29] MEDS: LORazepam 0.5 MG TAB PO PRN ×2 (04:51→16:25)
[2018-10-29] MEDS: CARBOHYDRATES FOR HYPOGLYCEMIA PO PRN ×2 (05:10→05:30)
[2018-10-29] MEDS: ALBUT/IPRATROP 3MG/0.5MG NEB 3 ML VIAL NEB SCH ×4 (07:09→18:58)
[2018-10-29 07:38] LABS: Basophils # (auto) 0.03 K/uL (0-0.2); Basophils % (auto) 0.3 %; Eosinophils # (auto) 0.29 K/uL (0-0.5); Hematocrit (blood only) 22.2 % (37-47); Hemoglobin 7.1 g/dL (12.0-16.0); Immature Granulocytes # (auto) 0.02 K/uL (0.00-0.02); Immature Granulocytes % (auto) 0.2 %; Lymphocytes # (auto) 1.84 K/uL (1.2-3.4); Lymphocytes % (auto) 19.1 %; Mean Corpuscular Volume 85.7 fL (80-100); Mean Platelet Volume 8.9 fL (7.4-10.4); Monocytes # (auto) 0.52 K/uL (0.11-0.59); Monocytes % (auto) 5.4 %; Neutrophils # (auto) 6.93 K/uL (1.4-6.5); Platelet Count 400 K/uL (130-400); RDW Coefficient of Variation 16.1 % (11.5-14.5); RDW Standard Deviation 50.3 fL (36.4-46.3); Red Blood Count 2.59 M/uL (4.2-5.4); White Blood Count 9.63 K/uL (4.8-10.8)
[2018-10-29] MEDS: CHOLECALCIFEROL 1,000 UNITS TAB PO SCH (08:01)
[2018-10-29] MEDS: METOPROLOL TARTRATE 25 MG TAB PO SCH ×2 (08:01→22:12)
[2018-10-29] MEDS: FERROUS SULFATE 325 MG TAB PO SCH ×2 (08:02→16:37)
[2018-10-29] MEDS: FUROSEMIDE 40 MG TAB PO SCH ×2 (08:02→16:37)
[2018-10-29] MEDS: INSULIN ASPART 100 UNITS/ML 3 ML PEN SC SCH ×4 (08:05→22:16)
[2018-10-29] MEDS: INSULIN GLARGINE SOLOSTAR 100 UNITS/ML 3 ML PEN SC SCH ×2 (08:06→22:14)
[2018-10-29] MEDS: HEPARIN SOD 5,000 UNIT/0.5 ML VIAL SQ SCH ×2 (08:07→22:13)
[2018-10-29 08:14] LABS: RBC Morphology Unremarkable
[2018-10-29] MEDS: CEFTAROLINE FOSAMIL ACETATE 600 MG in SODIUM CHLORIDE 0.9% 250 ML IV SCH ×2 (08:14→22:12)
[2018-10-29] MEDS: clonazePAM 0.5 MG TAB PO SCH ×3 (08:14→22:11)
[2018-10-29] MEDS: OXYCODONE HCL 10 MG TABCR (OXYCONTIN) PO SCH ×2 (08:14→22:11)
[2018-10-29 08:15] LABS: Albumin Globulin Ratio 0.3 (0.9-2); Albumin Level 1.4 gm/dl (3.4-5.0); BUN Creatinine Ratio 12.5 (10-20); Bilirubin,Total 0.3 mg/dl (0.2-1); Calcium 8.1 mg/dl (8.5-10.1); Creatinine Clr Calc Pharmacy 88.8 ml/min; Est GFR (African American) 96.6; Est GFR (Non-African American) 83.4; Globulin 5.5 gm/dl (2.5-4.0); Potassium 3.5 mmol/L (3.5-5.1); Total Protein 6.9 gm/dl (6.4-8.2)
--- NOTE | 2018-10-29 08:26 | Anesthesiology Progress Note ---
Date of Service October 29, 2018 Anesthesia Post Procedure Vital Signs Vital Signs: Temp Pulse Pulse Pulse Pulse Resp BP 10/29/18 07:56 104 H 10/29/18 07:51 36.8 C 118 H 24 10/29/18 07:11 68 20 10/29/18 07:10 68 20 10/29/18 04:28 36.6 C 112 H 26 H 10/28/18 23:29 37.1 C 110 H 28 H 10/28/18 22:07 114 H 30 H 10/28/18 19:38 124 H 24 10/28/18 19:21 107 H 16 10/28/18 18:45 37.5 C 109 H 24 10/28/18 18:35 104 H 19 10/28/18 18:25 109 H 17 10/28/18 18:16 37.4 C 108 H 16 10/28/18 17:12 36.9 C 102 H 21 10/28/18 17:10 37.1 C 106 H 20 10/28/18 16:24 36.9 C 105 H 24 10/28/18 15:16 113 H 113 H 25 H 10/28/18 14:21 105 H 32 H 10/28/18 12:00 37.0 C 97 H 24 145/88 H 10/28/18 11:05 83 83 21 BP Pulse Ox 10/29/18 07:56 10/29/18 07:51 124/59 L 96 10/29/18 07:11 96 10/29/18 07:10 96 10/29/18 04:28 130/86 96 10/28/18 23:29 125/80 97 10/28/18 22:07 97 10/28/18 19:38 141/89 H 99 10/28/18 19:21 100 10/28/18 18:45 141/95 H 96 10/28/18 18:35 144/101 H 97 10/28/18 18:25 149/97 H 96 10/28/18 18:16 146/104 H 96 10/28/18 17:12 143/87 H 100 10/28/18 17:10 149/75 H 100 10/28/18 16:24 142/91 H 97 10/28/18 15:16 98 10/28/18 14:21 99 10/28/18 12:00 99 10/28/18 11:05 98 Pain Intensity Right Shoulder: Pain Intensity: 7 Left Hand: Pain Intensity: 7 Left Knee: Pain Intensity: 0 Generalized: Pain Intensity: 8 Left Chest: Pain Intensity: 6 Notes Mental Status: alert / awake / arousable and participated in evaluation Nausea / Vomiting: adequately controlled Pain: adequately controlled Airway Patency, RR, SpO2: stable & adequate BP & HR: stable & adequate Hydration State: stable & adequate Anesthetic Complications: no major complications apparent
--- NOTE | 2018-10-29 12:42 | Surgery Progress Note ---
Date of Service October 29, 2018 Assessment & Plan (1) Infective endocarditis: POD # 1 s/p left subclavian aport insertion -afebrile, no leukocytosis - aport without any signs of erythema or edema, covered with dry dressing Plan: Okay to use aport catheter continue IV abx and current medical management No heavy lifting over 10 pounds for 1 week and no repetitive movements with left arm specifically above head for 1 week. Our services singing off, call with concerns Dr. Thapa has seen and examined pt, agrees with above Subjective feeling better breathing is better today no severe pain at aport site no fevers or chills last night tolerating diet Physical Exam 2 Vital Signs (Past 24 Hours): Last Vital Signs Temp 36.5 C 10/29/18 11:41 Pulse 109 H 10/29/18 11:41 Resp 24 10/29/18 11:41 BP 120/60 10/29/18 11:41 Pulse Ox 95 10/29/18 11:41 Constitutional: + ill appearing; no acute distress Respiratory: no respiratory distress and no labored breathing currently with oxygen mask Chest (Breasts): Additional Comments: aport with dressing present, no surrounding erythema or edema Skin: no rashes, warm and dry Psychiatric: A+Ox3, euthymic affect Results & Data Laboratory Results 10/29/18 10/29/18 10/29/18 Range/Units 11:07 07:12 06:59 WBC 9.63 (4.8-10.8) K/uL RBC 2.59 L (4.2-5.4) M/uL Hgb 7.1 L (12.0-16.0) g/dL Hct 22.2 L (37-47) % MCV 85.7 (80-100) fL MCH 27.4 (25-34) pg MCHC 32.0 (32-36) g/dL RDW Std Deviation 50.3 H (36.4-46.3) fL RDW Coeff of Clay 16.1 H (11.5-14.5) % Plt Count 400 (130-400) K/uL MPV 8.9 (7.4-10.4) fL Immature Gran % (Auto) 0.2 % Neut % (Auto) 72.0 % Lymph % (Auto) 19.1 % [place] % (Auto) 5.4 % Eos % (Auto) 3.0 % Baso % (Auto) 0.3 % Immature Gran # (Auto) 0.02 (0.00-0.02) K/uL Neut # (Auto) 6.93 H (1.4-6.5) K/uL Lymph # (Auto) 1.84 (1.2-3.4) K/uL [place] # (Auto) 0.52 (0.11-0.59) K/uL Eos # (Auto) 0.29 (0-0.5) K/uL Baso # (Auto) 0.03 (0-0.2) K/uL RBC Morphology Unremarkable Sodium (136-145) mmol/L Potassium (3.5-5.1) mmol/L Chloride (98-107) mmol/L Carbon Dioxide (21-32) mmol/L Anion Gap (3-11) BUN (7-18) mg/dl Creatinine (0.6-1.2) mg/dl Est Cr Clr Drug Dosing ml/min Est GFR ( Amer) Est GFR (Non-Af Amer) BUN/Creatinine Ratio (10-20) Glucose (70-99) mg/dl POC Glucose 139 H 125 H (70-99) Calcium (8.5-10.1) mg/dl Total Bilirubin (0.2-1) mg/dl AST (15-37) U/L ALT (12-78) U/L Alkaline Phosphatase (45-117) U/L Total Protein (6.4-8.2) gm/dl Albumin (3.4-5.0) gm/dl Globulin (2.5-4.0) gm/dl Albumin/Globulin Ratio (0.9-2) Pleural Cholesterol mg/dL 10/29/18 10/29/18 10/29/18 Range/Units 06:59 05:45 05:27 WBC (4.8-10.8) K/uL RBC (4.2-5.4) M/uL Hgb (12.0-16.0) g/dL Hct (37-47) % MCV (80-100) fL MCH (25-34) pg MCHC (32-36) g/dL RDW Std Deviation (36.4-46.3) fL RDW Coeff of Clay (11.5-14.5) % Plt Count (130-400) K/uL MPV (7.4-10.4) fL Immature Gran % (Auto) % Neut % (Auto) % Lymph % (Auto) % [place] % (Auto) % Eos % (Auto) % Baso % (Auto) % Immature Gran # (Auto) (0.00-0.02) K/uL Neut # (Auto) (1.4-6.5) K/uL Lymph # (Auto) (1.2-3.4) K/uL [place] # (Auto) (0.11-0.59) K/uL Eos # (Auto) (0-0.5) K/uL Baso # (Auto) (0-0.2) K/uL RBC Morphology Sodium 138 (136-145) mmol/L Potassium 3.5 (3.5-5.1) mmol/L Chloride 103 (98-107) mmol/L Carbon Dioxide 28 (21-32) mmol/L Anion Gap 7.0 (3-11) BUN 11 (7-18) mg/dl Creatinine 0.89 (0.6-1.2) mg/dl Est Cr Clr Drug Dosing 88.8 ml/min Est GFR ( Amer) 96.6 Est GFR (Non-Af Amer) 83.4 BUN/Creatinine Ratio 12.5 (10-20) Glucose 120 H (70-99) mg/dl POC Glucose 96 69 L* (70-99) Calcium 8.1 L (8.5-10.1) mg/dl Total Bilirubin 0.3 (0.2-1) mg/dl AST 7 L (15-37) U/L ALT 8 L (12-78) U/L Alkaline Phosphatase 118 H (45-117) U/L Total Protein 6.9 (6.4-8.2) gm/dl Albumin 1.4 L (3.4-5.0) gm/dl Globulin 5.5 H (2.5-4.0) gm/dl Albumin/Globulin Ratio 0.3 L (0.9-2) Pleural Cholesterol mg/dL 10/29/18 10/28/18 10/28/18 Range/Units 05:06 20:02 19:47 WBC (4.8-10.8) K/uL RBC (4.2-5.4) M/uL Hgb (12.0-16.0) g/dL Hct (37-47) % MCV (80-100) fL MCH (25-34) pg MCHC (32-36) g/dL RDW Std Deviation (36.4-46.3) fL RDW Coeff of Clay (11.5-14.5) % Plt Count (130-400) K/uL MPV (7.4-10.4) fL Immature Gran % (Auto) % Neut % (Auto) % Lymph % (Auto) % [place] % (Auto) % Eos % (Auto) % Baso % (Auto) % Immature Gran # (Auto) (0.00-0.02) K/uL Neut # (Auto) (1.4-6.5) K/uL Lymph # (Auto) (1.2-3.4) K/uL [place] # (Auto) (0.11-0.59) K/uL Eos # (Auto) (0-0.5) K/uL Baso # (Auto) (0-0.2) K/uL RBC Morphology Sodium (136-145) mmol/L Potassium (3.5-5.1) mmol/L Chloride (98-107) mmol/L Carbon Dioxide (21-32) mmol/L Anion Gap (3-11) BUN (7-18) mg/dl Creatinine (0.6-1.2) mg/dl Est Cr Clr Drug Dosing ml/min Est GFR ( Amer) Est GFR (Non-Af Amer) BUN/Creatinine Ratio (10-20) Glucose (70-99) mg/dl POC Glucose 58 L* 141 H 61 L* (70-99) Calcium (8.5-10.1) mg/dl Total Bilirubin (0.2-1) mg/dl AST (15-37) U/L ALT (12-78) U/L Alkaline Phosphatase (45-117) U/L Total Protein (6.4-8.2) gm/dl Albumin (3.4-5.0) gm/dl Globulin (2.5-4.0) gm/dl Albumin/Globulin Ratio (0.9-2) Pleural Cholesterol mg/dL 10/28/18 10/28/18 10/28/18 Range/Units 18:21 17:33 16:57 WBC (4.8-10.8) K/uL RBC (4.2-5.4) M/uL Hgb (12.0-16.0) g/dL Hct (37-47) % MCV (80-100) fL MCH (25-34) pg MCHC (32-36) g/dL RDW Std Deviation (36.4-46.3) fL RDW Coeff of [place] (11.5-14.5) % Plt Count (130-400) K/uL MPV (7.4-10.4) fL Immature Gran % (Auto) % Neut % (Auto) % Lymph % (Auto) % [place] % (Auto) % Eos % (Auto) % Baso % (Auto) % Immature Gran # (Auto) (0.00-0.02) K/uL Neut # (Auto) (1.4-6.5) K/uL Lymph # (Auto) (1.2-3.4) K/uL [place] # (Auto) (0.11-0.59) K/uL Eos # (Auto) (0-0.5) K/uL Baso # (Auto) (0-0.2) K/uL RBC Morphology Sodium (136-145) mmol/L Potassium (3.5-5.1) mmol/L Chloride (98-107) mmol/L Carbon Dioxide (21-32) mmol/L Anion Gap (3-11) BUN (7-18) mg/dl Creatinine (0.6-1.2) mg/dl Est Cr Clr Drug Dosing ml/min Est GFR ( Amer) Est GFR (Non-Af Amer) BUN/Creatinine Ratio (10-20) Glucose (70-99) mg/dl POC Glucose 80 91 62 L* (70-99) Calcium (8.5-10.1) mg/dl Total Bilirubin (0.2-1) mg/dl AST (15-37) U/L ALT (12-78) U/L Alkaline Phosphatase (45-117) U/L Total Protein (6.4-8.2) gm/dl Albumin (3.4-5.0) gm/dl Globulin (2.5-4.0) gm/dl Albumin/Globulin Ratio (0.9-2) Pleural Cholesterol mg/dL 10/25/18 Range/Units 09:48 WBC (4.8-10.8) K/uL RBC (4.2-5.4) M/uL Hgb (12.0-16.0) g/dL Hct (37-47) % MCV (80-100) fL MCH (25-34) pg MCHC (32-36) g/dL RDW Std Deviation (36.4-46.3) fL RDW Coeff of Clay (11.5-14.5) % Plt Count (130-400) K/uL MPV (7.4-10.4) fL Immature Gran % (Auto) % Neut % (Auto) % Lymph % (Auto) % [place] % (Auto) % Eos % (Auto) % Baso % (Auto) % Immature Gran # (Auto) (0.00-0.02) K/uL Neut # (Auto) (1.4-6.5) K/uL Lymph # (Auto) (1.2-3.4) K/uL [place] # (Auto) (0.11-0.59) K/uL Eos # (Auto) (0-0.5) K/uL Baso # (Auto) (0-0.2) K/uL RBC Morphology Sodium (136-145) mmol/L Potassium (3.5-5.1) mmol/L Chloride (98-107) mmol/L Carbon Dioxide (21-32) mmol/L Anion Gap (3-11) BUN (7-18) mg/dl Creatinine (0.6-1.2) mg/dl Est Cr Clr Drug Dosing ml/min Est GFR ( Amer) Est GFR (Non-Af Amer) BUN/Creatinine Ratio (10-20) Glucose (70-99) mg/dl POC Glucose (70-99) Calcium (8.5-10.1) mg/dl Total Bilirubin (0.2-1) mg/dl AST (15-37) U/L ALT (12-78) U/L Alkaline Phosphatase (45-117) U/L Total Protein (6.4-8.2) gm/dl Albumin (3.4-5.0) gm/dl Globulin (2.5-4.0) gm/dl Albumin/Globulin Ratio (0.9-2) Pleural Cholesterol 66 mg/dL
[2018-10-29] MEDS: rifAMPin 300 MG CAPSULE PO SCH ×2 (13:33→22:10)
[2018-10-29] MEDS ORDERED: clonazePAM 0.5 MG TAB PO STA (16:26)
--- NOTE | 2018-10-29 19:11 | Family Medicine Progress Note ---
Date of Service October 29, 2018 Assessment & Plan (1) MRSA (methicillin resistant Staphylococcus aureus) septicemia: Princess is a 37-year-old female with a past medical history of IV drug abuse and type 1 diabetes with resolved DKA being currently managed for MRSA endocarditis with septicemia. Infective endocarditis - Repeat echo with trapped vegetations, minimal to no TR, pleural effusions. � Was improving on ceftaroline + rifampin + dapto but lost IV access. PORT placed 10/28 and pt has peripheral access as well. Receiving dapto and ceftaroline once more. - Linezolid 600mg PO BID CANDIDO until IV access can be established. - Repeat BCx2 on 10/25 and 10/19 with ng -Medically ready for discharge possibly tomorrow. If she were to be discharged, would time abx right before discharge in the evening ~9pm then followup to [facility] next day for infusion. Dalbavancin preauth approved for 10/25/18 to 12/22/18. Cannot receive infusion on day of discharge. Acute hypoxic respiratory failure �Multifactorial. In the setting of multiple septic emboli. Regurg 2/2 endocarditis/valvular disease may be contributing to pulmonary edema difficult to visualize on the background of septic emboli. Has low oncotic pressure as well due to low protein and hypoalbuminemia. -For possible discharge tomorrow, will monitor with a nocturnal pulse ox while on Bipap and will obtain a morning ABG. - ABG 10/25/18: 7.45/33/74/22 - s/p second pleurocentesis 10/25, removed 800mL transudative fluid removed - O2, Bipap as needed. Anxiety/Insomnia - Clonazepam 0.5mg PO BID CANDIDO - Lorazepam 0.5mg PO Q6H PRN - Trazodone 50mg PO PRN - Hydroxyzine 25mg PO PRN - Escitalopram 10mg PO daily if QTp will tolerate C. difficile diarrhea-TREATMENT COMPLETE/RESOLVED. - Vanco 125mg PO Q6H Day #07/10. Anemia - Fecal occult blood negative - No signs of intravascular hemolysis on smear - Likely in setting of endocarditis and poor nutrition on a background of repeat phlebotomy - Iron 325mg PO BIDM T2DM - Glucose checks AC/HS - Daily BMP, SG - SSI correction 40mg/dl/unit, 1:14 Carb Ratio HTN - Metoprolol Tartrate 25mg BID - Hold for BP systolic < 100, HR<60. 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 � Previously on oxycodone PRN, held & OK with pt to avoid opioids. IV drug abuse �History of injecting buprenorphine. �Will require counseling and possible rehab on discharge - Attempting to place into direct f/u with PCP and possibly methadone clinic when medically stable Acute renal failure. (resolved) -likely secondary to septic picture + prerenal. - Continue to follow BMP/Cr/UOP Bacteruria (resolved) - UA Positive for bacteria and nitrites, UC shows minimal growth and is likely contaminant versus mild kami in the setting of stasis DKA (resolved) �Blood sugar 1220 on admission �Treated with DKA protocol on admit Diet: Tolerating PO well, T1 Diabetic Diet. Low albumin + boost/yogurt with meals. DVT Prophylaxis: On heparin 5,000U Q8H (2) Acute kidney failure: (3) Right shoulder pain: (4) Wrist pain, left: (5) Aspiration into airway: (6) Hyperglycemia: (7) Hyponatremia: (8) DVT prophylaxis: Supervising Physician Co-Signing Physician Notes Patient seen and examined with Dr. Choudhury at the bedside. Agree with history, exam findings, assessment and plan of care as outlined with the following additions/updates: In brief, Princess is a 37 year old female with history of IVDA, diabetes admitted 21 days ago with septicemia and DKA. Today she is eager to go home. On oxymask. Was on BiPAP and CPAP overnight. VS reviewed and stable. Bibasilar crackles. Pitting edema bilateral LE. 1. infective endocarditis. linezolid PO, restarted IV abx as well. Port placed. Plan to switch to dalbavancin as an outpatient--to be given in [facility]. 2. respiratory insufficiency. multifactorial. O2 support as needed, diuresis with lasix. Watch lytes and renal function. 2-step and noc ox today. Long discussion with patient regarding need for nocturnal testing to determine if she needs just NC O2 or if she needs more respiratory support at night with BiPAP or CPAP. Noc ox ordered with morning ABG. 3. c diff colitis-resolved. 4. anemia. monitor H/H. 5. DM. glucose checks ac + hs. ssi. 6. hypoalbuminemia. nutritional in nature. appreciate nutrition recs. Dispo: if continues to look well, will get O2 set up for home and discharge. Subjective Pt states that she feels well enough to go home today as she needs to get home to take care of her family. Denies chest pain, exertional dyspnea or SOB currently. Review of Systems All systems reviewed & are unremarkable except as noted in HPI & below Physical Exam 2 Vital Signs (Past 24 Hours): Last Vital Signs Temp 36.9 C 10/29/18 17:00 Pulse 108 H 10/29/18 18:56 Resp 18 10/29/18 18:56 BP 144/94 H 10/29/18 17:00 Pulse Ox 96 10/29/18 18:56 General: Sitting up in bed, awake alert, conversational. HEENT: NC/AT, mask on face. Chest: Nontender to palpation. CV: RRR, Normal s1, s2. No murmurs appreciated Resp: Crackles/coarse breath sounds bilaterally especially the bases. Reduced breath sounds right upper lobe. Extremities: Significant nonpitting lower extremity edema. Results & Data Laboratory Results Laboratory Results - last 24 hr 10/25/18 10/28/18 10/28/18 09:48 19:47 20:02 WBC RBC Hgb Hct MCV MCH MCHC RDW Std Deviation RDW Coeff of [place] Plt Count MPV Immature Gran % (Auto) Neut % (Auto) Lymph % (Auto) [place] % (Auto) Eos % (Auto) Baso % (Auto) Immature Gran # (Auto) Neut # (Auto) Lymph # (Auto) [place] # (Auto) Eos # (Auto) Baso # (Auto) RBC Morphology Sodium Potassium Chloride Carbon Dioxide Anion Gap BUN Creatinine Est Cr Clr Drug Dosing Est GFR ( Amer) Est GFR (Non-Af Amer) BUN/Creatinine Ratio Glucose POC Glucose 61 L* 141 H Calcium Total Bilirubin AST ALT Alkaline Phosphatase Total Creatine Kinase Total Protein Albumin Globulin Albumin/Globulin Ratio Pleural Cholesterol 66 10/29/18 10/29/18 10/29/18 05:06 05:27 05:45 WBC RBC Hgb Hct MCV MCH MCHC RDW Std Deviation RDW Coeff of [place] Plt Count MPV Immature Gran % (Auto) Neut % (Auto) Lymph % (Auto) [place] % (Auto) Eos % (Auto) Baso % (Auto) Immature Gran # (Auto) Neut # (Auto) Lymph # (Auto) [place] # (Auto) Eos # (Auto) Baso # (Auto) RBC Morphology Sodium Potassium Chloride Carbon Dioxide Anion Gap BUN Creatinine Est Cr Clr Drug Dosing Est GFR ( Amer) Est GFR (Non-Af Amer) BUN/Creatinine Ratio Glucose POC Glucose 58 L* 69 L* 96 Calcium Total Bilirubin AST ALT Alkaline Phosphatase Total Creatine Kinase Total Protein Albumin Globulin Albumin/Globulin Ratio Pleural Cholesterol 10/29/18 10/29/18 10/29/18 06:59 06:59 07:12 WBC 9.63 RBC 2.59 L Hgb 7.1 L Hct 22.2 L MCV 85.7 MCH 27.4 MCHC 32.0 RDW Std Deviation 50.3 H RDW Coeff of [place] 16.1 H Plt Count 400 MPV 8.9 Immature Gran % (Auto) 0.2 Neut % (Auto) 72.0 Lymph % (Auto) 19.1 [place] % (Auto) 5.4 Eos % (Auto) 3.0 Baso % (Auto) 0.3 Immature Gran # (Auto) 0.02 Neut # (Auto) 6.93 H Lymph # (Auto) 1.84 [place] # (Auto) 0.52 Eos # (Auto) 0.29 Baso # (Auto) 0.03 RBC Morphology Unremarkable Sodium 138 Potassium 3.5 Chloride 103 Carbon Dioxide 28 Anion Gap 7.0 BUN 11 Creatinine 0.89 Est Cr Clr Drug Dosing 88.8 Est GFR ( Amer) 96.6 Est GFR (Non-Af Amer) 83.4 BUN/Creatinine Ratio 12.5 Glucose 120 H POC Glucose 125 H Calcium 8.1 L Total Bilirubin 0.3 AST 7 L ALT 8 L Alkaline Phosphatase 118 H Total Creatine Kinase Total Protein 6.9 Albumin 1.4 L Globulin 5.5 H Albumin/Globulin Ratio 0.3 L Pleural Cholesterol 10/29/18 10/29/18 10/29/18 11:07 15:01 16:10 WBC RBC Hgb Hct MCV MCH MCHC RDW Std Deviation RDW Coeff of [place] Plt Count MPV Immature Gran % (Auto) Neut % (Auto) Lymph % (Auto) [place] % (Auto) Eos % (Auto) Baso % (Auto) Immature Gran # (Auto) Neut # (Auto) Lymph # (Auto) [place] # (Auto) Eos # (Auto) Baso # (Auto) RBC Morphology Sodium Potassium Chloride Carbon Dioxide Anion Gap BUN Creatinine Est Cr Clr Drug Dosing Est GFR ( Amer) Est GFR (Non-Af Amer) BUN/Creatinine Ratio Glucose POC Glucose 139 H 223 H Calcium Total Bilirubin AST ALT Alkaline Phosphatase Total Creatine Kinase 26 Total Protein Albumin Globulin Albumin/Globulin Ratio Pleural Cholesterol Medications Administered Home Medications buprenorphine HCl 8 mg SUBLINGUAL BID 10/07/18 [History Confirmed 10/07/18] insulin aspart U-100 [Novolog Flexpen U-100 Insulin] 1 dose SUBCUT DIRECTED 10/07/18 [History Confirmed 10/07/18] insulin glargine [Basaglar KwikPen U-100 Insulin] 32 units SUBCUT QAM 10/07/18 [ History Confirmed 10/07/18] dalbavancin 1,500 mg IV UD #1 ea 10/23/18 [Rx] Active Medications Acetaminophen (Ofirmev) 1,000 mg IV Q8H PRN PRN Reason: Fever Stop: 11/06/18 22:51 Last Admin: 10/12/18 00:18 Dose: 1,000 mg Acetaminophen (Tylenol) 650 mg PO Q4H PRN PRN Reason: Pain Stop: 11/26/18 14:37 Last Admin: 10/28/18 23:50 Dose: 650 mg Albuterol (Duoneb) 3 ml NEB QIDR [facility] Stop: 11/24/18 07:59 Last Admin: 10/29/18 18:58 Dose: 3 ml Clonazepam (Klonopin) 0.5 mg PO BID [facility] Stop: 11/25/18 08:59 Last Admin: 10/29/18 16:35 Dose: 0.5 mg Dextrose (Dextrose 50%) 25 - 50 ml IV UD PRN; Protocol PRN Reason: Hypoglycemia Protocol Stop: 11/06/18 21:31 Last Admin: 10/08/18 21:11 Dose: 25 ml Ferrous Sulfate (Feosol) 325 mg PO BIDM [facility] Stop: 11/26/18 07:59 Last Admin: 10/29/18 16:37 Dose: 325 mg Furosemide (Lasix) 40 mg PO [id number] [facility] Stop: 11/26/18 16:59 Last Admin: 10/29/18 16:37 Dose: 40 mg Glucagon (Glucagen) 1 mg IM UD PRN; Protocol PRN Reason: Hypoglycemia Protocol Stop: 11/06/18 21:31 Glucose (Glucose 40%) 15 - 30 gm PO UD PRN; Protocol PRN Reason: Hypoglycemia Protocol Stop: 11/06/18 21:31 Glucose (Dex4 Glucose) 4 - 8 tabs PO UD PRN; Protocol PRN Reason: Hypoglycemia Protocol Stop: 11/06/18 21:31 Heparin Sodium (Porcine) (Heparin Sodium (Porcine)) 5,000 units SQ Q12 CANDIDO Stop: 11/21/18 20:59 Last Admin: 10/29/18 08:07 Dose: 5,000 units Heparin Sodium (Porcine) (Heparin Sod 100 Unit/Ml Flush) 5 ml FLUSH PRN PRN PRN Reason: Flush Stop: 11/28/18 07:29 Hydroxyzine HCl (Vistaril) 25 mg PO HS PRN PRN Reason: breakthrough insomnia Stop: 11/18/18 15:03 Last Admin: 10/28/18 02:40 Dose: 25 mg Ceftaroline Fosamil 600 mg/ (Sodium Chloride) 270 mls @ 270 mls/hr IV Q12H CANDIDO ; Protocol Stop: 10/31/18 20:59 Last Infusion: 10/29/18 09:23 Dose: Infused Daptomycin 450 mg/ Syringe 9 mls @ 4.5 mls/min IV Q24H CANDIDO; Protocol Stop: 11/11/18 19:29 Last Admin: 10/28/18 21:32 Dose: 4.5 mls/min Insulin Aspart (Novolog Flexpen) 0 units SC ACHS CANDIDO; Protocol Stop: 11/25/18 07:29 Last Admin: 10/29/18 18:10 Dose: 13 units Insulin Glargine (Lantus Solostar Pen) 0 units SC BID CANDIDO; Protocol Stop: 11/25/18 20:59 Last Admin: 10/29/18 08:06 Dose: 13 units Lactulose (Chronulac) 30 gm PO Q8H PRN PRN Reason: Constipation Stop: 11/11/18 09:32 Last Admin: 10/13/18 08:57 Dose: 30 gm Lorazepam (Ativan) 0.5 mg PO Q6H PRN PRN Reason: Anxiety Stop: 11/25/18 15:10 Last Admin: 10/29/18 16:25 Dose: 0.5 mg Metoprolol Tartrate (Lopressor) 25 mg PO BID C[facility]IDO Stop: 11/16/18 20:59 Last Admin: 10/29/18 08:01 Dose: 25 mg Miscellaneous (Carbohydrates For Hypoglycemia) 15 - 30 gm PO UD PRN PRN Reason: Hypoglycemia Treatment Stop: 11/06/18 21:31 Last Admin: 10/29/18 05:30 Dose: 15 gm Miscellaneous Information (Consult Glycemic Management Pharmacy) 1 ea N/A UD PRN PRN Reason: Consult Stop: 11/06/18 21:38 Miscellaneous Information () 1 ea N/A UD PRN PRN Reason: Consult Stop: 11/09/18 11:14 Miscellaneous Information (Consult) 1 ea N/A UD PRN PRN Reason: Consult Stop: 11/19/18 07:59 Naloxone HCl (Narcan) 0.2 mg IV PRN PRN PRN Reason: OVER Sedation Stop: 11/15/18 09:57 Ondansetron HCl (Zofran) 4 mg IV Q6H PRN PRN Reason: Nausea Stop: 11/06/18 14:59 Last Admin: 10/28/18 11:55 Dose: 4 mg Oxycodone HCl (Oxycontin) 10 mg PO BID [facility] Stop: 10/30/18 09:59 Last Admin: 10/29/18 08:14 Dose: 10 mg Oxycodone HCl (Roxicodone Immediate Rel) 5 mg PO Q6H PRN PRN Reason: pain Stop: 11/11/18 19:42 Last Admin: 10/29/18 16:24 Dose: 5 mg Polyethylene Glycol (Miralax Powder Packet) 17 gm PO DAILY PRN PRN Reason: Constipation Stop: 11/06/18 14:59 Rifampin (Rifampin) 300 mg PO Q8H CANDIDO Stop: 11/09/18 19:59 Last Admin: 10/29/18 13:33 Dose: 300 mg Simethicone (Mylicon) 80 mg PO Q6H PRN PRN Reason: Gas or Constipation Stop: 11/27/18 23:47 Last Admin: 10/29/18 01:10 Dose: 80 mg Trazodone HCl (Desyrel) 100 mg PO HS [facility] Stop: 11/25/18 20:59 Last Admin: 10/28/18 21:08 Dose: 100 mg Vitamin D (Vitamin D3) 2,000 units PO QAM [facility] Stop: 11/09/18 08:59 Last Admin: 10/29/18 08:01 Dose: 2,000 units Resident Activity Tracking Resident Involvement: Resident Care Provided Care Provided: Adult [facility] _ (1) Aspiration into airway Encounter type: initial encounter Qualified Code(s): T17.908A - Unspecified foreign body in respiratory tract, part unspecified causing other injury, initial encounter
[2018-10-29] MEDS: TRAZODONE HCL 100 MG TAB PO SCH (22:11)
[2018-10-29] MEDS: DAPTOmycin 450 MG in SYRINGE 0 ML IV SCH (22:32)
[2018-10-30] MEDS: LORazepam 0.5 MG TAB PO PRN ×3 (00:23→22:44)
[2018-10-30] MEDS: INSULIN ASPART 100 UNITS/ML 3 ML PEN SC SCH ×6 (00:25→21:45)
[2018-10-30] MEDS: rifAMPin 300 MG CAPSULE PO SCH ×3 (04:01→21:44)
[2018-10-30] MEDS: OXYCODONE HCL IR 5 MG TAB (IMMEDIATE RELEASE) PO PRN ×2 (04:16→22:43)
[2018-10-30] MEDS: CARBOHYDRATES FOR HYPOGLYCEMIA PO PRN (07:25)
--- NOTE | 2018-10-30 07:28 | XRay Report ---
XR chest 1V portable CLINICAL HISTORY: effusion COMPARISON STUDY: 10/28/2018 FINDINGS: The cardiac and mediastinal contours remain stable. There is a left subclavian A-[place] ter present. There are persistent small bilateral pleural effusions. There are persistent bilateral p ulmonary airspace opacities with slight improvement in the right mid to lower lung zone airspace opac ities.[ IMPRESSION: 1. Extensive bilateral pulmonary airspace opacities with slight improvement on the right 2. Persistent bilateral pleural effusions Electronically signed by: Aidan Kendrick M.D. 10/30/2018 7:27 AM
[2018-10-30] MEDS: ALBUT/IPRATROP 3MG/0.5MG NEB 3 ML VIAL NEB SCH (07:34)
[2018-10-30 08:18] LABS: Basophils # (auto) 0.03 K/uL (0-0.2); Basophils % (auto) 0.4 %; Eosinophils # (auto) 0.31 K/uL (0-0.5); Eosinophils % (auto) 3.9 %; Hematocrit (blood only) 23.5 % (37-47); Hemoglobin 7.4 g/dL (12.0-16.0); Immature Granulocytes # (auto) 0.02 K/uL (0.00-0.02); Immature Granulocytes % (auto) 0.3 %; Lymphocytes # (auto) 1.37 K/uL (1.2-3.4); Lymphocytes % (auto) 17.3 %; Mean Corpuscular Hgb Conc 31.5 g/dL (32-36); Mean Corpuscular Volume 85.8 fL (80-100); Mean Platelet Volume 8.4 fL (7.4-10.4); Monocytes # (auto) 0.37 K/uL (0.11-0.59); Monocytes % (auto) 4.7 %; Neutrophils # (auto) 5.82 K/uL (1.4-6.5); Neutrophils % (auto) 73.4 %; Platelet Count 342 K/uL (130-400); RDW Coefficient of Variation 16.2 % (11.5-14.5); RDW Standard Deviation 50.3 fL (36.4-46.3); Red Blood Count 2.74 M/uL (4.2-5.4); White Blood Count 7.92 K/uL (4.8-10.8)
[2018-10-30 08:19] LABS: HCO3 ABG 29 mmol/L (19-24); Oxygen Saturation ABG 93.5 % (90-95); PCO2 ABG 40 mmHg (35-46); PO2 ABG 79 mm/Hg (80-95); pH ABG 7.47 (7.35-7.45)
[2018-10-30] MEDS: METOPROLOL TARTRATE 25 MG TAB PO SCH ×2 (08:19→21:44)
[2018-10-30] MEDS: OXYCODONE HCL 10 MG TABCR (OXYCONTIN) PO SCH (08:19)
[2018-10-30] MEDS: CHOLECALCIFEROL 1,000 UNITS TAB PO SCH (08:19)
[2018-10-30] MEDS: clonazePAM 0.5 MG TAB PO SCH ×2 (08:19→21:24)
[2018-10-30 08:20] LABS: Allen Test Pos (Pos)
[2018-10-30] MEDS: HEPARIN SOD 5,000 UNIT/0.5 ML VIAL SQ SCH ×2 (08:20→21:45)
[2018-10-30] MEDS: FUROSEMIDE 40 MG TAB PO SCH ×2 (08:20→17:59)
[2018-10-30] MEDS: FERROUS SULFATE 325 MG TAB PO SCH ×2 (08:20→18:06)
[2018-10-30 08:59] LABS: BUN Creatinine Ratio 9.1 (10-20); Calcium 8.5 mg/dl (8.5-10.1); Est GFR (African American) 91.6; Est GFR (Non-African American) 79.1; Potassium 3.2 mmol/L (3.5-5.1)
[2018-10-30 09:10] LABS: Hypochromasia Present
[2018-10-30] MEDS: CEFTAROLINE FOSAMIL ACETATE 600 MG in SODIUM CHLORIDE 0.9% 250 ML IV SCH ×2 (09:33→22:37)
[2018-10-30] MEDS ORDERED: INSULIN GLARGINE SOLOSTAR 100 UNITS/ML 3 ML PEN SC SCH (10:00)
[2018-10-30] MEDS ORDERED: ALBUT/IPRATROP 3MG/0.5MG NEB 3 ML VIAL NEB PRN (10:49)
--- NOTE | 2018-10-30 13:25 | Pharmacy Report ---
Pharmacy Glycemic Short Note 2 - Date of Service October 30, 2018 - Glycemic Short BSG Results (Last 24 hours): 10/29/18 10/29/18 10/30/18 16:10 20:45 00:16 Glucose POC Glucose 223 H 292 H 262 H 10/30/18 10/30/18 10/30/18 03:57 07:15 07:42 Glucose POC Glucose 98 53 L* 75 10/30/18 10/30/18 08:03 11:32 Glucose 78 POC Glucose 137 H Outpatient Anti-diabetic Regimen: * Insulin glargine 32 units qAM * Novolog - unknown dose/schedule * A1c = 12.7 % on 10/07/18 ASSESSMENT: 10/30-: * Patient started on diet 10/29 - required about 59 units of insulin yesterday, of which 30 units were basal insulin * Fasting BSG low this am 53 mg/dL -treated per hypoglycemia protocol, on recheck trended up to 75 mg/dL; expect lower BSG this am was due to larger Lantus dose given last evening of 17 units and overnight correctional insulin. Patient had previously been receiving ~13 BID of Lantus * Adjusted CR this am for lower BSG - lunchtime BSG appropriate at 137 mg/dL, recorded patient only eating 4 gm carbs eaten * As diet is advanced, expect BSGs to trend up. Yesterday patient ate larger dinner and BSGs trended up to 295 mg/dL - will tighten CR starting with dinner 10/28/18: * Ms. Katz recieved 34 units of insulin yesterday. She continues to be NPO awaiting port placement, planned for today. Reduced AM dose this morning and will place scale on this evening to account for potential continued NPO status or re-odering of diet. 10/27/18 * Ms. Katz received 38 units of insulin yesterday. BSGs improved significantly throughout the day and she did not end up receiving higher doses of the Lantus. I'm concerned that the current Novolog parameters may be too aggressive now that BSGs have improved. Will loosen today. * Basal dose will be kept the same, allowing for a slightly higher dose if BSGs are > 180 mg/dL PLAN FOR INPATIENT GLYCEMIC CONTROL: * Basal insulin - reduced / adjusted dose * Lantus BID based on the following scale: * 13 units for BSG < 180 * 15 units for BSG 180 or above * Novolog - tighten * ACHS Goal Range: Low 110-140 mg/dL Correction Factor: 30 mg/dL/unit Prandial insulin: Per carb ratio of 1 unit per 8 grams CHO consumed Pharmacy will continue to monitor patient daily and write orders per [facility] inpatient glycemic control protocol. Thanks.
[2018-10-30] MEDS ORDERED: clonazePAM 0.5 MG TAB PO PRN (19:29)
--- NOTE | 2018-10-30 21:13 | Family Medicine Progress Note ---
Date of Service October 30, 2018 Assessment & Plan (1) MRSA (methicillin resistant Staphylococcus aureus) septicemia: Princess is a 37-year-old female with a past medical history of IV drug abuse and type 1 diabetes with resolved DKA being currently managed for MRSA endocarditis with septicemia. Infective endocarditis - Repeat echo with trapped vegetations, minimal to no TR, pleural effusions. � Was improving on ceftaroline + rifampin + dapto but lost IV access. PORT placed 10/28 and pt has peripheral access as well. Receiving dapto and ceftaroline once more. - Linezolid 600mg PO BID CANDIDO. - Repeat BCx2 on 10/25 and 10/19 with ng -Medically ready for discharge possibly tomorrow. If she were to be discharged, would time abx right before discharge in the evening ~9pm then followup to [facility] next day for infusion. Dalbavancin preauth approved for 10/25/18 to 12/22/18. Cannot receive infusion on day of discharge. Acute hypoxic respiratory failure �Multifactorial. In the setting of multiple septic emboli. Regurg 2/2 endocarditis/valvular disease may be contributing to pulmonary edema difficult to visualize on the background of septic emboli. Has low oncotic pressure as well due to low protein and hypoalbuminemia. -Does not qualify for home bipap/cpap. For discharge pendng insurance approval of home o2 - ABG 10/25/18: 7.45/33/74/22 - s/p second pleurocentesis 10/25, removed 800mL transudative fluid removed - O2, Bipap as needed. Anxiety/Insomnia - Clonazepam 0.5mg PO BID CANDIDO - Lorazepam 0.5mg PO Q6H PRN - Trazodone 50mg PO PRN - Hydroxyzine 25mg PO PRN - Escitalopram 10mg PO daily if QTp will tolerate C. difficile diarrhea-TREATMENT COMPLETE/RESOLVED. - Vanco 125mg PO Q6H Day #07/10. Anemia - Fecal occult blood negative - No signs of intravascular hemolysis on smear - Likely in setting of endocarditis and poor nutrition on a background of repeat phlebotomy - Iron 325mg PO BIDM T2DM - Glucose checks AC/HS - Daily BMP, SG - SSI correction 40mg/dl/unit, 1:14 Carb Ratio HTN - Metoprolol Tartrate 25mg BID - Hold for BP systolic < 100, HR<60. Multifocal pain �Multiple septic emboli - History of buprenorphine tx (8mg BID [employer] dose), hx of IVDA of buprenorphine. � Previously on oxycodone PRN, held & OK with pt to avoid opioids. IV drug abuse �History of injecting buprenorphine. �Will require counseling and possible rehab on discharge - Attempting to place into direct f/u with PCP and possibly methadone clinic when medically stable Acute renal failure. (resolved) -likely secondary to septic picture + prerenal. - Continue to follow BMP/Cr/UOP Bacteruria (resolved) - UA Positive for bacteria and nitrites, UC shows minimal growth and is likely contaminant versus mild kami in the setting of stasis DKA (resolved) �Blood sugar 1220 on admission �Treated with DKA protocol on admit Diet: Tolerating PO well, T1 Diabetic Diet. Low albumin + boost/yogurt with meals. DVT Prophylaxis: On heparin 5,000U Q8H (2) Acute kidney failure: (3) Right shoulder pain: (4) Wrist pain, left: (5) Aspiration into airway: (6) Hyperglycemia: (7) Hyponatremia: (8) DVT prophylaxis: Supervising Physician Co-Signing Physician Notes Patient seen and examined with Dr. Choudhury at the bedside. Agree with history, exam findings, assessment and plan of care as outlined with the following additions/updates: In brief, Princess is a 37 year old female with history of IVDA, diabetes admitted 21 days ago with septicemia and DKA. Today she is eager to go home. On nasal cannula. Was CPAP overnight. VS reviewed and stable. Bibasilar crackles. Pitting edema bilateral LE. 1. infective endocarditis. linezolid PO, restarted IV abx as well. Port placed. Plan to switch to dalbavancin as an outpatient--to be given in [facility]. 2. respiratory insufficiency. multifactorial. O2 support as needed, diuresis with lasix. Watch lytes and renal function. Requires 2 L O2 with rest and exertion. Does not qualify for BiPAP at home and we cannot do the CPAP testing in house. Requesting O2 and supplies for home�Rx signed this morning. She was on 30% FiO2 with the CPAP last night. Appreciate case management assistance with coordinating this. 3. c diff colitis-resolved. 4. anemia. monitor H/H. 5. DM. glucose checks ac + hs. ssi. 6. hypoalbuminemia. nutritional in nature. appreciate nutrition recs. Dispo: if continues to look well, will get O2 set up for home and discharge. Has apt with new PCP soon after discharge. Subjective Pt wants to go home but did not qualify for home cpap/bipap. Pending insurance approval for home o2 needs. Review of Systems All systems reviewed & are unremarkable except as noted in HPI & below Physical Exam 2 Vital Signs (Past 24 Hours): Last Vital Signs Temp 37.1 C 10/30/18 20:10 Pulse 124 H 10/30/18 20:10 Resp 18 10/30/18 20:10 BP 148/93 H 10/30/18 20:10 Pulse Ox 95 10/30/18 20:10 General: Sitting up in bed, awake alert, conversational. HEENT: NC/AT, Nasal Cannula in nares. Chest: Nontender to palpation. CV: RRR, Normal s1, s2. No murmurs appreciated Resp: Crackles/coarse breath sounds bilaterally especially the bases. Reduced breath sounds right upper lobe. Extremities: Significant nonpitting lower extremity edema. Results & Data Laboratory Results Laboratory Results - last 24 hr 10/30/18 10/30/18 10/30/18 07:15 07:42 08:02 WBC RBC Hgb Hct MCV MCH MCHC RDW Std Deviation RDW Coeff of [place] Plt Count MPV Immature Gran % (Auto) Neut % (Auto) Lymph % (Auto) [place] % (Auto) Eos % (Auto) Baso % (Auto) Immature Gran # (Auto) Neut # (Auto) Lymph # (Auto) [place] # (Auto) Eos # (Auto) Baso # (Auto) Hypochromasia ABG pH 7.47 H ABG pCO2 40 ABG pO2 79 L ABG HCO3 29 H ABG O2 Saturation 93.5 ABG Base Excess 4.5 H [place] Test Pos Barometric Pressure 725.6 Oxygen Given 2 L Sodium Potassium Chloride Carbon Dioxide Anion Gap BUN Creatinine Est Cr Clr Drug Dosing Est GFR ( Amer) Est GFR (Non-Af Amer) BUN/Creatinine Ratio Glucose POC Glucose 53 L* 75 Calcium 10/30/18 10/30/18 10/30/18 08:03 08:03 11:32 WBC 7.92 RBC 2.74 L Hgb 7.4 L Hct 23.5 L MCV 85.8 MCH 27.0 MCHC 31.5 L RDW Std Deviation 50.3 H RDW Coeff of [place] 16.2 H Plt Count 342 MPV 8.4 Immature Gran % (Auto) 0.3 Neut % (Auto) 73.4 Lymph % (Auto) 17.3 [place] % (Auto) 4.7 Eos % (Auto) 3.9 Baso % (Auto) 0.4 Immature Gran # (Auto) 0.02 Neut # (Auto) 5.82 Lymph # (Auto) 1.37 [place] # (Auto) 0.37 Eos # (Auto) 0.31 Baso # (Auto) 0.03 Hypochromasia Present ABG pH ABG pCO2 ABG pO2 ABG HCO3 ABG O2 Saturation ABG Base Excess [place] Test Barometric Pressure Oxygen Given Sodium 138 Potassium 3.2 L Chloride 102 Carbon Dioxide 30 Anion Gap 7.0 BUN 9 Creatinine 0.93 Est Cr Clr Drug Dosing 81.0 Est GFR ( Amer) 91.6 Est GFR (Non-Af Amer) 79.1 BUN/Creatinine Ratio 9.1 L Glucose 78 POC Glucose 137 H Calcium 8.5 10/30/18 10/30/18 10/31/18 16:15 20:09 03:47 WBC RBC Hgb Hct MCV MCH MCHC RDW Std Deviation RDW Coeff of [place] Plt Count MPV Immature Gran % (Auto) Neut % (Auto) Lymph % (Auto) [place] % (Auto) Eos % (Auto) Baso % (Auto) Immature Gran # (Auto) Neut # (Auto) Lymph # (Auto) [place] # (Auto) Eos # (Auto) Baso # (Auto) Hypochromasia ABG pH ABG pCO2 ABG pO2 ABG HCO3 ABG O2 Saturation ABG Base Excess [place] Test Barometric Pressure Oxygen Given Sodium Potassium Chloride Carbon Dioxide Anion Gap BUN Creatinine Est Cr Clr Drug Dosing Est GFR ( Amer) Est GFR (Non-Af Amer) BUN/Creatinine Ratio Glucose POC Glucose 239 H 280 H 307 H Calcium Medications Administered Home Medications buprenorphine HCl 8 mg SUBLINGUAL BID 10/07/18 [History Confirmed 10/07/18] insulin aspart U-100 [Novolog Flexpen U-100 Insulin] 1 dose SUBCUT DIRECTED 10/07/18 [History Confirmed 10/07/18] insulin glargine [Basaglar KwikPen U-100 Insulin] 32 units SUBCUT QAM 10/07/18 [ History Confirmed 10/07/18] dalbavancin 1,500 mg IV UD #1 ea 10/23/18 [Rx] Active Medications Acetaminophen (Ofirmev) 1,000 mg IV Q8H PRN PRN Reason: Fever Stop: 11/06/18 22:51 Last Admin: 10/12/18 00:18 Dose: 1,000 mg Acetaminophen (Tylenol) 650 mg PO Q4H PRN PRN Reason: Pain Stop: 11/26/18 14:37 Last Admin: 10/30/18 23:51 Dose: 650 mg Albuterol (Duoneb) 3 ml NEB QIDR PRN PRN Reason: Shortness Of Breath Stop: 11/29/18 11:59 Clonazepam (Klonopin) 0.5 mg PO BID [facility] Stop: 11/25/18 08:59 Last Admin: 10/30/18 21:24 Dose: 0.5 mg Clonazepam (Klonopin) 0.5 mg PO ONE PRN PRN Reason: anxiety Stop: 11/29/18 19:28 Last Admin: 10/30/18 21:26 Dose: 0.5 mg Dextrose (Dextrose 50%) 25 - 50 ml IV UD PRN; Protocol PRN Reason: Hypoglycemia Protocol Stop: 11/06/18 21:31 Last Admin: 10/08/18 21:11 Dose: 25 ml Ferrous Sulfate (Feosol) 325 mg PO BIDM [facility] Stop: 11/26/18 07:59 Last Admin: 10/30/18 18:06 Dose: 325 mg Furosemide (Lasix) 40 mg PO BID17 [facility] Stop: 11/26/18 16:59 Last Admin: 10/30/18 17:59 Dose: 40 mg Glucagon (Glucagen) 1 mg IM UD PRN; Protocol PRN Reason: Hypoglycemia Protocol Stop: 11/06/18 21:31 Glucose (Glucose 40%) 15 - 30 gm PO UD PRN; Protocol PRN Reason: Hypoglycemia Protocol Stop: 11/06/18 21:31 Glucose (Dex4 Glucose) 4 - 8 tabs PO UD PRN; Protocol PRN Reason: Hypoglycemia Protocol Stop: 11/06/18 21:31 Heparin Sodium (Porcine) (Heparin Sodium (Porcine)) 5,000 units SQ Q12 C[facility]IDO Stop: 11/21/18 20:59 Last Admin: 10/30/18 21:45 Dose: 5,000 units Heparin Sodium (Porcine) (Heparin Sod 100 Unit/Ml Flush) 5 ml FLUSH PRN PRN PRN Reason: Flush Stop: 11/28/18 07:29 Last Admin: 10/30/18 23:51 Dose: 5 ml Hydroxyzine HCl (Vistaril) 25 mg PO HS PRN PRN Reason: breakthrough insomnia Stop: 11/18/18 15:03 Last Admin: 10/31/18 04:18 Dose: 25 mg Ceftaroline Fosamil 600 mg/ (Sodium Chloride) 270 mls @ 270 mls/hr IV Q12H CANDIDO ; Protocol Stop: 10/31/18 20:59 Last Infusion: 10/30/18 23:50 Dose: Infused Daptomycin 450 mg/ Syringe 9 mls @ 4.5 mls/min IV Q24H CANDIDO; Protocol Stop: 11/11/18 19:29 Last Admin: 10/30/18 21:23 Dose: 4.5 mls/min Insulin Aspart (Novolog Flexpen) 0 units SC ACHS CANDIDO; Protocol Stop: 11/25/18 07:29 Last Admin: 10/30/18 21:45 Dose: 5 units Insulin Glargine (Lantus Solostar Pen) 0 units SC Q12 CANDIDO; Protocol Stop: 11/29/18 20:59 Last Admin: 10/30/18 21:44 Dose: 15 units Lactulose (Chronulac) 30 gm PO Q8H PRN PRN Reason: Constipation Stop: 11/11/18 09:32 Last Admin: 10/13/18 08:57 Dose: 30 gm Lorazepam (Ativan) 0.5 mg PO Q6H PRN PRN Reason: Anxiety Stop: 11/25/18 15:10 Last Admin: 10/30/18 22:44 Dose: 0.5 mg Metoprolol Tartrate (Lopressor) 25 mg PO BID CANDIDO Stop: 11/16/18 20:59 Last Admin: 10/30/18 21:44 Dose: 25 mg Miscellaneous (Carbohydrates For Hypoglycemia) 15 - 30 gm PO UD PRN PRN Reason: Hypoglycemia Treatment Stop: 11/06/18 21:31 Last Admin: 10/30/18 07:25 Dose: 15 gm Miscellaneous Information (Consult Glycemic Management Pharmacy) 1 ea N/A UD PRN PRN Reason: Consult Stop: 11/06/18 21:38 Miscellaneous Information () 1 ea N/A UD PRN PRN Reason: Consult Stop: 11/09/18 11:14 Miscellaneous Information (Consult) 1 ea N/A UD PRN PRN Reason: Consult Stop: 11/19/18 07:59 Naloxone HCl (Narcan) 0.2 mg IV PRN PRN PRN Reason: OVER Sedation Stop: 11/15/18 09:57 Ondansetron HCl (Zofran) 4 mg IV Q6H PRN PRN Reason: Nausea Stop: 11/06/18 14:59 Last Admin: 10/28/18 11:55 Dose: 4 mg Oxycodone HCl (Roxicodone Immediate Rel) 5 mg PO Q6H PRN PRN Reason: pain Stop: 11/11/18 19:42 Last Admin: 10/30/18 22:43 Dose: 5 mg Polyethylene Glycol (Miralax Powder Packet) 17 gm PO DAILY PRN PRN Reason: Constipation Stop: 11/06/18 14:59 Rifampin (Rifampin) 300 mg PO Q8H CANDIDO Stop: 11/09/18 19:59 Last Admin: 10/31/18 03:49 Dose: 300 mg Simethicone (Mylicon) 80 mg PO Q6H PRN PRN Reason: Gas or Constipation Stop: 11/27/18 23:47 Last Admin: 10/29/18 01:10 Dose: 80 mg Trazodone HCl (Desyrel) 100 mg PO [facility] Stop: 11/25/18 20:59 Last Admin: 10/30/18 21:23 Dose: 100 mg Vitamin D (Vitamin D3) 2,000 units PO QAM C[facility]IDO Stop: 11/09/18 08:59 Last Admin: 10/30/18 08:19 Dose: 2,000 units Resident Activity Tracking Resident Involvement: Resident Care Provided Care Provided: [facility] _ (1) Aspiration into airway Encounter type: initial encounter Qualified Code(s): T17.908A - Unspecified foreign body in respiratory tract, part unspecified causing other injury, initial encounter
[2018-10-30] MEDS: DAPTOmycin 450 MG in SYRINGE 0 ML IV SCH (21:23)
[2018-10-30] MEDS: TRAZODONE HCL 100 MG TAB PO SCH (21:23)
[2018-10-30] MEDS: INSULIN GLARGINE SOLOSTAR 100 UNITS/ML 3 ML PEN SC SCH (21:44)
[2018-10-30] MEDS: HEPARIN 100 UNIT/ML 5ML FLUSH FLUSH PRN (23:51)
[2018-10-30] MEDS: ACETAMINOPHEN 325 MG TAB PO PRN (23:51)
[2018-10-31] MEDS: rifAMPin 300 MG CAPSULE PO SCH ×2 (03:49→13:12)
[2018-10-31] MEDS ORDERED: INSULIN ASPART 100 UNITS/ML 3 ML PEN SC ONE (04:15)
[2018-10-31] MEDS: LORazepam 0.5 MG TAB PO PRN ×2 (06:01→13:22)
[2018-10-31 06:11] LABS: Hematocrit (blood only) 22.2 % (37-47); Hemoglobin 7.1 g/dL (12.0-16.0); Mean Corpuscular Volume 84.7 fL (80-100); Mean Platelet Volume 9.3 fL (7.4-10.4); Platelet Count 333 K/uL (130-400); RDW Coefficient of Variation 16.2 % (11.5-14.5); RDW Standard Deviation 50.5 fL (36.4-46.3); Red Blood Count 2.62 M/uL (4.2-5.4); White Blood Count 8.63 K/uL (4.8-10.8)
[2018-10-31 06:34] LABS: Basophils # (auto) 0.03 K/uL (0-0.2); Basophils % (auto) 0.3 %; Eosinophils # (auto) 0.36 K/uL (0-0.5); Eosinophils % (auto) 4.2 %; Immature Granulocytes # (auto) 0.03 K/uL (0.00-0.02); Immature Granulocytes % (auto) 0.3 %; Lymphocytes % (auto) 16.2 %; Monocytes # (auto) 0.58 K/uL (0.11-0.59); Monocytes % (auto) 6.7 %; Neutrophils # (auto) 6.23 K/uL (1.4-6.5); Neutrophils % (auto) 72.3 %; RBC Morphology Unremarkable
[2018-10-31 06:40] LABS: Creatinine Clr Calc Pharmacy 91.7 ml/min; Est GFR (African American) 105.1; Est GFR (Non-African American) 90.7
[2018-10-31 06:41] LABS: BUN Creatinine Ratio 7.9 (10-20); Calcium 8.6 mg/dl (8.5-10.1); Creatinine Clr Calc Pharmacy 88.5 ml/min; Est GFR (African American) 100.7; Est GFR (Non-African American) 86.9; Potassium 3.4 mmol/L (3.5-5.1)
[2018-10-31] MEDS ORDERED: POTASSIUM CHLORIDE 20 MEQ TABCR PO STA (08:05)
[2018-10-31] MEDS: SIMETHICONE 80 MG CHEW PO PRN (08:12)
[2018-10-31] MEDS: CHOLECALCIFEROL 1,000 UNITS TAB PO SCH (08:14)
[2018-10-31] MEDS: FERROUS SULFATE 325 MG TAB PO SCH (08:15)
[2018-10-31] MEDS: METOPROLOL TARTRATE 25 MG TAB PO SCH (08:15)
[2018-10-31] MEDS: FUROSEMIDE 40 MG TAB PO SCH (08:16)
[2018-10-31] MEDS: CEFTAROLINE FOSAMIL ACETATE 600 MG in SODIUM CHLORIDE 0.9% 250 ML IV SCH (08:31)
[2018-10-31] MEDS: clonazePAM 0.5 MG TAB PO SCH (08:32)
[2018-10-31] MEDS: INSULIN GLARGINE SOLOSTAR 100 UNITS/ML 3 ML PEN SC SCH (08:48)
[2018-10-31] MEDS: HEPARIN SOD 5,000 UNIT/0.5 ML VIAL SQ SCH (08:49)
[2018-10-31] MEDS: INSULIN ASPART 100 UNITS/ML 3 ML PEN SC SCH ×2 (08:51→13:14)
--- NOTE | 2018-10-31 11:30 | Pharmacy Report ---
Pharmacy Glycemic Short Note 2 - Date of Service October 31, 2018 - Glycemic Short BSG Results (Last 24 hours): 10/30/18 10/30/18 10/30/18 11:32 16:15 20:09 Glucose POC Glucose 137 H 239 H 280 H 10/31/18 10/31/18 10/31/18 03:47 05:53 07:15 Glucose 264 H POC Glucose 307 H 240 H Outpatient Anti-diabetic Regimen: * Insulin glargine 32 units qAM * Novolog - unknown dose/schedule * A1c = 12.7 % on 10/07/18 ASSESSMENT: 10-31-18: * Patient received total of 45 units of insulin yesterday, 28 units of which were basal insulin * BSGs trended up overnight, additional correctional insulin added - Fasting BSG this am 240 mg/dL - increased to Lantus 15 units this am * Patient's BSGs fluctuate throughout the day, portions of meals (carbs) also increase/decrease - adjusted CF this morning * Lunchtime BSG increasing more, adjusted CR * Will add adjusted Lantus dosing for this evening based upon BSGs : * Patient started on diet 10/29 - required about 59 units of insulin yesterday, of which 30 units were basal insulin * Fasting BSG low this am 53 mg/dL -treated per hypoglycemia protocol, on recheck trended up to 75 mg/dL; expect lower BSG this am was due to larger Lantus dose given last evening of 17 units and overnight correctional insulin. Patient had previously been receiving ~13 BID of Lantus * Adjusted CR this am for lower BSG - lunchtime BSG appropriate at 137 mg/dL, recorded patient only eating 4 gm carbs eaten * As diet is advanced, expect BSGs to trend up. Yesterday patient ate larger dinner and BSGs trended up to 295 mg/dL - will tighten CR starting with dinner 10/28/18: * Ms. Katz recieved 34 units of insulin yesterday. She continues to be NPO awaiting port placement, planned for today. Reduced AM dose this morning and will place scale on this evening to account for potential continued NPO status or re-odering of diet. 10/27/18 * Ms. Katz received 38 units of insulin yesterday. BSGs improved significantly throughout the day and she did not end up receiving higher doses of the Lantus. I'm concerned that the current Novolog parameters may be too aggressive now that BSGs have improved. Will loosen today. * Basal dose will be kept the same, allowing for a slightly higher dose if BSGs are > 180 mg/dL PLAN FOR INPATIENT GLYCEMIC CONTROL: * Basal insulin - 15 units this am * Lantus BID based on the following scale: * 13 units for BSG < 160 * 15 units for BSG 160-200 * 17 units for BSG >200 * Novolog - tighten * ACHS Goal Range: Low 110-140 mg/dL Correction Factor: 25 mg/dL/unit Prandial insulin: Per carb ratio of 1 unit per 8 grams CHO consumed Pharmacy will continue to monitor patient daily and write orders per [facility] inpatient glycemic control protocol. Thanks.
[2018-10-31] MEDS: HEPARIN 100 UNIT/ML 5ML FLUSH FLUSH PRN (15:26)
--- NOTE | 2018-10-31 15:57 | Progress Note ---
DATE: 10/31/2018 Princess was seen today. She is lying in bed. She really is not complaining of pain, but she just feels "horrible "all over. Saturation is 93% on 3 liters. Heart rate 114. Her lungs really do not sound bad. I reviewed her x-ray from yesterday and really she has very little in the way of effusions on either side. I do not think these effusions are having much of a clinical impact. We will continue to follow, but I do not think intervening is going to be helpful.
[2018-10-31] MEDS ORDERED: INSULIN GLARGINE SOLOSTAR 100 UNITS/ML 3 ML PEN SC SCH (21:00)
[2018-11-01] MEDS ORDERED: INSULIN ASPART 100 UNITS/ML 3 ML PEN SC SCH ×2
== END 2018-10-31 16:41 | disposition home or self-care (01) ==
LOC: ED 12:16 → 2E 15:00 → SUATTDRO 15:00 → 2E 19:45 → 1E 10-10 05:51 → 2S 10-18 13:48 → 2W 10-19 16:31 → 2S 10-25 04:37